=== PATIENT | female | born 1940 | race Caucasian/White ===

== ENCOUNTER → 2016-12-24 | Outpatient (CLI) | payer MEDICARE ==
--- NOTE | 2016-12-24 14:30 | XR ---
EXAMINATION TYPE: XR chest 2V DATE OF EXAM: 12/24/2016 11:56 AM HISTORY: Cough. REFERENCE: Previous study dated 04/03/2016. FINDINGS: The lungs are overinflated. Heart size is normal. The lungs are clear. Pleural spaces are c lear. IMPRESSION: COPD.
== END | disposition home or self-care (01) ==
LOC: RADXRMAIN 11:28
PROVIDERS: ATTEND Internal Medicine
DX: J44.9 Chronic obstructive pulmonary disease, unspecified (principal); R05 Cough
CPT/HCPCS: 71020

== ENCOUNTER 2017-09-26 20:11 | Inpatient (IN) | payer MEDICARE, OTHER ==
[2017-09-26] MEDS ORDERED: SODIUM CHLORIDE 0.9% 500 ML IV STA (20:48)
[2017-09-26 20:53] LABS: Glucose,Whole Blood 123 mg/dL (75-99)
--- NOTE | 2017-09-26 20:57 | ED ---
General Adult HPI - General Chief complaint: Weakness Stated complaint: Left side numbness Arm /RX Stroke Time Seen by Provider: 09/26/17 20:40 Source: patient, family, RN notes reviewed Mode of arrival: wheelchair Limitations: no limitations - History of Present Illness Initial comments: This is a 76-year-old female presents emergency Department complaining of left- sided weakness and numbness. Patient states started last evening right after dinner. Patient states she's having difficulty walking because of left side keeps giving out. Patient's daughter agrees to this started last night after dinner. Patient states she has had strokes in the past. Patient states her leg and arm both appear to be weak and she doesn't appear to have a normal coordination that she doesn't a daily basis. Patient denies any recent fever chills or cough per patient denies chest pain difficulty breathing shortness of breath. Patient denies any headache. Patient denies any visual disturbance or speech disturbance. - Related Data Home Medications Medication Instructions Recorded Confirmed Enalapril [Vasotec] 10 mg PO DAILY 05/09/14 09/25/16 Clopidogrel Bisulfate [Plavix] 75 mg PO DAILY 01/29/15 09/25/16 HYDROcodone/APAP 10-325MG [[place] 1 tab PO Q8H PRN 01/29/15 09/25/16 10] Aspirin EC [Ecotrin] 81 mg PO DAILY 04/03/16 09/25/16 Levothyroxine Sodium [Synthroid] 25 mcg PO DAILY 04/03/16 09/25/16 Baclofen [Lioresal] 10 mg PO Q8H PRN 09/25/16 09/25/16 Hydrochlorothiazide [Hydrodiuril] 12.5 mg PO DAILY 09/25/16 09/25/16 Sodium Chloride [[place]] 1 spray EA NOSTRIL DAILY PRN 09/25/16 09/25/16 Allergies Allergy/AdvReac Type Severity Reaction Status Date / Time cimetidine [From Tagamet] Allergy Rash/Hives Verified 09/26/17 20:42 cimetidine HCl [From Tagamet] Allergy Rash/Hives Verified 09/26/17 20:42 prednisone Allergy Swelling Verified 09/26/17 20:42 Review of Systems ROS Statement: Those systems with pertinent positive or pertinent negative responses have been documented in the HPI. ROS Other: All systems not noted in ROS Statement are negative. Past Medical History Past Medical History: COPD, CVA/TIA, Hypertension, Thyroid Disorder Additional Past Medical History / Comment(s): heart murmur, diverticulitis, ARTHRITIS, History of Any Multi-Drug Resistant Organisms: None Reported Additional Past Surgical History / Comment(s): nasal septum Past Anesthesia/Blood Transfusion Reactions: No Reported Reaction Past Psychological History: Depression Smoking Status: Current every day smoker Past Alcohol Use History: None Reported Past Drug Use History: None Reported - Past Family History Mother Family Medical History: No Reported History General Exam - General Exam Comments Initial Comments: GENERAL: Patient is well-developed and well-nourished. Patient is nontoxic and well- hydrated and is in no acute distress. ENT: Neck is soft and supple. No significant lymphadenopathy is noted. Oropharynx is clear. Moist mucous membranes. Neck has full range of motion without eliciting any pain. EYES: The sclera were anicteric and conjunctiva were pink and moist. Extraocular movements were intact and pupils were equal round and reactive to light. Eyelids were unremarkable. PULMONARY: Unlabored respirations. Good breath sounds bilaterally. No audible rales rhonchi or wheezing was noted. CARDIOVASCULAR: There is a regular rate and rhythm without any murmurs gallops or rubs. ABDOMEN: Soft and nontender with normal bowel sounds. No palpable organomegaly was noted. There is no palpable pulsatile mass. SKIN: Skin is clear with no lesions or rashes and otherwise unremarkable. NEUROLOGIC: Patient is alert and oriented x3. Cranial nerves II through XII are grossly intact. Patient has left arm and left leg weakness. Are equal bilaterally however her dorsiflexion and plantar flexion are weak 3 out of 5 compared to 5 out of 5 on the right. She is finger to nose on the left is considerably off MUSCULOSKELETAL: Normal extremities with adequate strength and full range of motion. No lower extremity swelling or edema. No calf tenderness. LYMPHATICS: No significant lymphadenopathy is noted PSYCHIATRIC: Normal psychiatric evaluation. Normal interpersonal interactions appears functionally intact in deals appropriately with others. No signs of depression. No signs of anxiety. Limitations: no limitations Course Vital Signs 09/26/17 09/26/17 09/26/17 20:40 20:55 21:10 Temperature 97.7 F Pulse Rate 80 78 69 Respiratory 16 18 18 Rate Blood Pressure 108/55 105/59 101/60 O2 Sat by Pulse 95 96 97 Oximetry 09/26/17 21:58 Temperature 98.6 F Pulse Rate 71 Respiratory 18 Rate Blood Pressure 102/58 O2 Sat by Pulse 95 Oximetry Medical Decision Making - Medical Decision Making EKG shows sinus rhythm at a rate of 70 bpm GA interval is 134 QRS is 104 QT interval 394 QTC is 449. Patient's EKG shows no ST segment elevation or depression or T-wave abnormalities noted her Computed tomography scan shows no acute abnormality. Chest x-ray shows a right lower lobe pneumonia. I started the patient on Levaquin. - Lab Data Result diagrams: 09/26/17 20:48 09/26/17 20:48 Lab Results 09/26/17 09/26/17 09/26/17 Range/Units 20:41 20:48 20:48 WBC 11.3 H (3.8-10.6) k/uL RBC 4.07 (3.80-5.40) m/uL Hgb 12.8 (11.4-16.0) gm/dL Hct 39.3 (34.0-46.0) % MCV 96.6 (80.0-100.0) fL MCH 31.4 (25.0-35.0) pg MCHC 32.5 (31.0-37.0) g/dL RDW 12.6 (11.5-15.5) % Plt Count 231 (150-450) k/uL Neutrophils % 54 % Lymphocytes % 32 % Monocytes % 11 % Eosinophils % 1 % Basophils % 1 % Neutrophils # 6.1 (1.3-7.7) k/uL Lymphocytes # 3.6 (1.0-4.8) k/uL Monocytes # 1.2 H (0-1.0) k/uL Eosinophils # 0.1 (0-0.7) k/uL Basophils # 0.1 (0-0.2) k/uL PT (9.0-12.0) sec INR (<1.2) APTT (22.0-30.0) sec Sodium (137-145) mmol/L Potassium (3.5-5.1) mmol/L Chloride (98-107) mmol/L Carbon Dioxide (22-30) mmol/L Anion Gap mmol/L BUN (7-17) mg/dL Creatinine (0.52-1.04) mg/dL Est GFR (MDRD) Af Amer (>60 ml/min/1.73 sqM) Est GFR (MDRD) Non-Af (>60 ml/min/1.73 sqM) Glucose (74-99) mg/dL POC Glucose (mg/dL) 123 H (75-99) mg/dL POC Glu [employer] Judge ID Rose Muhammad Calcium (8.4-10.2) mg/dL Total Bilirubin (0.2-1.3) mg/dL AST (14-36) U/L ALT (9-52) U/L Alkaline Phosphatase (38-126) U/L Total Creatine Kinase 44 (30-135) U/L CK-MB (CK-2) 0.5 (0.0-2.4) ng/mL CK-MB (CK-2) Rel Index 1.1 Troponin I 0.038 H* (0.000-0.034) ng/mL Total Protein (6.3-8.2) g/dL Albumin (3.5-5.0) g/dL 09/26/17 09/26/17 Range/Units 20:48 20:48 WBC (3.8-10.6) k/uL RBC (3.80-5.40) m/uL Hgb (11.4-16.0) gm/dL Hct (34.0-46.0) % MCV (80.0-100.0) fL MCH (25.0-35.0) pg MCHC (31.0-37.0) g/dL RDW (11.5-15.5) % Plt Count (150-450) k/uL Neutrophils % % Lymphocytes % % Monocytes % % Eosinophils % % Basophils % % Neutrophils # (1.3-7.7) k/uL Lymphocytes # (1.0-4.8) k/uL Monocytes # (0-1.0) k/uL Eosinophils # (0-0.7) k/uL Basophils # (0-0.2) k/uL PT 11.2 (9.0-12.0) sec INR 1.1 (<1.2) APTT 21.8 L (22.0-30.0) sec Sodium 133 L (137-145) mmol/L Potassium 3.7 (3.5-5.1) mmol/L Chloride 99 (98-107) mmol/L Carbon Dioxide 26 (22-30) mmol/L Anion Gap 8 mmol/L BUN 20 H (7-17) mg/dL Creatinine 0.69 (0.52-1.04) mg/dL Est GFR (MDRD) Af Amer >60 (>60 ml/min/1.73 sqM) Est GFR (MDRD) Non-Af >60 (>60 ml/min/1.73 sqM) Glucose 120 H (74-99) mg/dL POC Glucose (mg/dL) (75-99) mg/dL POC Glu [employer] [facility] Judge ID Calcium 9.4 (8.4-10.2) mg/dL Total Bilirubin 0.6 (0.2-1.3) mg/dL AST 29 (14-36) U/L ALT 31 (9-52) U/L Alkaline Phosphatase 78 (38-126) U/L Total Creatine Kinase (30-135) U/L CK-MB (CK-2) (0.0-2.4) ng/mL CK-MB (CK-2) Rel Index Troponin I (0.000-0.034) ng/mL Total Protein 6.3 (6.3-8.2) g/dL Albumin 3.5 (3.5-5.0) g/dL Disposition Clinical Impression: Cerebrovascular accident Disposition: ADMITTED IP TO THIS [facility] Time of Disposition: 21:49
--- NOTE | 2017-09-26 21:04 | CT ---
EXAMINATION TYPE: CT brain wo con DATE OF EXAM: 09/26/2017 COMPARISON: 09/10/2014 HISTORY: History of stroke, left sided weakness started yesterday. CT DLP: 1009.20 mGycm Automated exposure control for dose reduction was used. FINDINGS: There is cerebral cortical atrophy. There is no mass effect nor midline shift. There is no sign of in tracranial hemorrhage. The calvarium is intact. There is mucosal thickening in the sphenoid sinus. IMPRESSION: CEREBRAL ATROPHY. NO ACUTE INTRACRANIAL ABNORMALITY. THERE IS NEW MILD SPHENOID SINUSITIS.
[2017-09-26 21:15] LABS: Basophils # (A) 0.1 k/uL (0-0.2); Basophils % (A) 1 %; CHCM 33.3; Eosinophils # (A) 0.1 k/uL (0-0.7); Eosinophils % (A) 1 %; HCT 39.3 % (34.0-46.0); HDW 2.18; HGB 12.8 gm/dL (11.4-16.0); Luc # (Auto) 0.16; Luc % (Auto) 1; Lymphocytes # (A) 3.6 k/uL (1.0-4.8); Lymphocytes % (A) 32 %; MCH 31.4 pg (25.0-35.0); MCHC 32.5 g/dL (31.0-37.0); MCV 96.6 fL (80.0-100.0); Mean Platelet Volume 7.8; Monocytes # (A) 1.2 k/uL (0-1.0); Monocytes % (A) 11 %; Neutrophils # (A) 6.1 k/uL (1.3-7.7); Neutrophils % (A) 54 %; RBC 4.07 m/uL (3.80-5.40); RDW 12.6 % (11.5-15.5); WBC 11.3 k/uL (3.8-10.6)
[2017-09-26 21:18] LABS: ALT 31 U/L (9-52); AST 29 U/L (14-36); Alkaline Phosphatase 78 U/L (38-126); Anion Gap 8 mmol/L; Blood Urea Nitrogen 20 mg/dL (7-17); Calcium 9.4 mg/dL (8.4-10.2); Carbon Dioxide 26 mmol/L (22-30); Chloride 99 mmol/L (98-107); Glucose 120 mg/dL (74-99); Non-African American GFR(MDRD) >60 (>60 ml/min/1.73 sqM); Potassium 3.7 mmol/L (3.5-5.1); Sodium 133 mmol/L (137-145); Total Bilirubin 0.6 mg/dL (0.2-1.3); Total Protein 6.3 g/dL (6.3-8.2)
[2017-09-26 21:27] LABS: INR 1.1 (<1.2); Prothrombin Time 11.2 sec (9.0-12.0)
[2017-09-26 21:40] LABS: Creatine Kinase MB 0.5 ng/mL (0.0-2.4); Troponin I 0.038 ng/mL (0.000-0.034)
--- NOTE | 2017-09-26 21:41 | XR ---
EXAMINATION TYPE: XR chest 2V DATE OF EXAM: 09/26/2017 COMPARISON: 12/24/2016 HISTORY: Weakness TECHNIQUE: Frontal and lateral views of the chest are obtained. FINDINGS: There is some patchy pneumonic consolidation at the right lung base. There is no gross hea rt failure. There is probably small right pleural effusion. Heart size is normal. There is pulmonary hyperinflation. Thoracic aorta is atheromatous. IMPRESSION: COPD. There is new right lower lobe pneumonia compared to old exam. No heart failure
[2017-09-26 21:44] LABS: Partial Thromboplastin Time 21.8 sec (22.0-30.0)
[2017-09-26] MEDS ORDERED: ASPIRIN 325 MG TAB PO STA (21:49)
[2017-09-26] MEDS ORDERED: HYDROmorphone 1 MG/ML 1 ML SYRINGE IVP STA (22:08)
[2017-09-26] MEDS ORDERED: ONDANSETRON 4 MG/2 ML VIAL IVP STA (22:08)
[2017-09-26] MEDS ORDERED: LEVOFLOXACIN 750MG-D5W PMX 750 MG in DEXTROSE/WATER 1 150ML.BAG IVPB STA (22:40)
[2017-09-26] MEDS ORDERED: LEVOFLOXACIN 750MG-D5W PMX 750 MG in DEXTROSE/WATER 1 150ML.BAG IVPB SCH (22:45)
[2017-09-27] MEDS: SODIUM CHLORIDE 0.9% 1,000 ML IV SCH ×2 (00:20→20:49)
[2017-09-27] MEDS: BACLOFEN 10 MG TAB PO SCH ×4 (00:52→20:49)
[2017-09-27 03:54] LABS: Cholesterol 88 mg/dL (<200); HDL Cholesterol 27 mg/dL (40-60)
[2017-09-27] MEDS: LEVOTHYROXINE 25 MCG TAB PO SCH (06:49)
[2017-09-27] MEDS: CLOPIDOGREL 75 MG TAB PO SCH (07:52)
[2017-09-27] MEDS: SODIUM CHLORIDE 0.65% NASAL SPRAY 44 ML BTL NASAL SCH ×2 (07:52→20:49)
[2017-09-27] MEDS ORDERED: LISINOPRIL 20 MG TAB PO SCH (09:00)
[2017-09-27] MEDS ORDERED: HYDROCHLOROTHIAZIDE 12.5 MG CAP PO SCH (09:00)
--- NOTE | 2017-09-27 09:25 | US ---
EXAMINATION TYPE: US carotid duplex BILAT DATE OF EXAM: 09/27/2017 COMPARISON: Previous study dated 09/11/2014. CLINICAL HISTORY: Stenosis. Stroke 2005. Left side weakness. EXAM MEASUREMENTS: RIGHT: Peak Systolic Velocity (PSV) cm/sec ----- Right CCA: 68.8 ----- Right ICA: 108.1 ----- Right ECA: 86.6 ICA/CCA ratio: 1.6 RIGHT: End Diastole cm/sec ----- Right CCA: 17.4 ----- Right ICA: 30.5 ----- Right ECA: 16.7 LEFT: Peak Systolic Velocity (PSV) cm/sec ----- Left CCA: 74.6 ----- Left ICA: 87.9 ----- Left ECA: 98.4 ICA/CCA ratio: 1.2 LEFT: End Diastole cm/sec ----- Left CCA: 19.7 ----- Left ICA: 37.4 ----- Left ECA: 9.5 VERTEBRALS (direction of flow): Right Vertebral: Antegrade Left Vertebral: Antegrade Rhythm: Arrhythmia No significant stenosis, elevated velocities or wall thickening. Plaque seen in bilateral bulbs. IMPRESSION: I DO NOT SEE EVIDENCE OF A HEMODYNAMICALLY SIGNIFICANT STENOSIS IN EITHER CAROTID SYSTEM. Criteria for Assigning % of Stenosis / Diameter reduction (Estimation based on the indirect measurements of the internal carotid artery velocities (ICA PSV). 1. Normal (no stenosis)=ICA PSV < 125 cm/s: ratio < 2.0: ICA EDV<40 cm/s. 2. Less than 50% stenosis=ICA PSV < 125 cm/s: ratio < 2.0: ICA EDV<40 cm/s. 3. 50 to 69% stenosis=ICA PSV of 125 to 230 cm/s: ration 2.0 ? 4.0: ICA EDV 40-100 cm/s. 4. Greater than 70% stenosis to near occlusion= ICA PSV > 230 cm/s: ratio > 4.0: ICA EDV > 100 cm/s. 5. Near occlusion= ICA PSV velocities may be low or undetectable: variable ratio and ICA EDV. 6. Total occlusion=unable to detect flow.
--- NOTE | 2017-09-27 11:06 | P.HPIM ---
History of Present Illness H&P Date: 09/27/17 Chief Complaint: Left sided weakness Patient is a 76-year-old female well known to my practice who presented to [facility] emergency room due to left sided weakness that involved the left upper extremity and the left lower extremity. Patient states that on Thursday afternoon around 5:30 PM, she started having some numbness feeling in her left hand, she tried to get up and walk to the bathroom but she felt weak on the left side and she was veering to the left, there was no speech or vision impairment there was no facial drooping . She stayed at home she waited about 24 hours her symptoms did not improve and she decided to come to emergency room. Patient was evaluated in the emergency room, she had a computed tomography scan of the brain that showed evidence of atrophy and evidence of sinusitis otherwise no significant abnormality. Chest x-ray was done in the emergency room and revealed evidence of COPD and a new right lower lobe pneumonia, EKG was done in the emergency room and revealed normal sinus rhythm, patient has been maintained on telemetry which reveals normal sinus rhythm no evidence of atrial fibrillation so far. Patient has multiple risk factors including smoking patient states that she started smoking at age 15 she still smokes 15 cigarettes per day she was counseled in length on multiple occasions in regard to smoking cessation, patient also has a known history of hypertension, hyperlipidemia, hypothyroidism Past Medical History Past Medical History: COPD, CVA/TIA, Hypertension, Thyroid Disorder Additional Past Medical History / Comment(s): heart murmur, diverticulitis, ARTHRITIS, History of Any Multi-Drug Resistant Organisms: None Reported Past Surgical History: Appendectomy Additional Past Surgical History / Comment(s): nasal septum Past Anesthesia/Blood Transfusion Reactions: No Reported Reaction Past Psychological History: Depression Smoking Status: Current every day smoker Past Alcohol Use History: None Reported Past Drug Use History: None Reported - Past Family History Mother Family Medical History: No Reported History Medications and Allergies Home Medications Medication Instructions Recorded Confirmed Type Enalapril [Vasotec] 10 mg PO DAILY 05/09/14 09/26/17 History Clopidogrel Bisulfate [Plavix] 75 mg PO DAILY 01/29/15 09/26/17 History HYDROcodone/APAP 10-325MG [[place] 1 tab PO Q8H PRN 01/29/15 09/26/17 History 10] Aspirin EC [Ecotrin] 81 mg PO DAILY 04/03/16 09/26/17 History Levothyroxine Sodium [Synthroid] 50 mcg PO DAILY 04/03/16 09/26/17 History Baclofen [Lioresal] 20 mg PO Q8H 09/25/16 09/26/17 History Hydrochlorothiazide [Hydrodiuril] 12.5 mg PO DAILY 09/25/16 09/26/17 History Sodium Chloride [[place]] 1 spray EA NOSTRIL BID 09/25/16 09/26/17 History Allergies Allergy/AdvReac Type Severity Reaction Status Date / Time cimetidine [From Tagamet] Allergy Rash/Hives Verified 09/26/17 20:42 cimetidine HCl [From Tagamet] Allergy Rash/Hives Verified 09/26/17 20:42 prednisone Allergy Swelling Verified 09/26/17 20:42 Physical Exam Vitals: Vital Signs Temp Pulse Pulse Resp BP BP Pulse Ox 09/27/17 07:49 98.3 F 92 18 106/61 90 L 09/27/17 04:00 127 H 20 09/27/17 03:49 97.6 F 127 H 20 90/57 91 L 09/27/17 01:49 EST 79 17 98 09/27/17 00:00 77 18 09/26/17 23:49 79 17 105/58 96 09/26/17 22:49 97.6 F 81 18 107/57 95 09/26/17 21:58 98.6 F 71 18 102/58 95 09/26/17 21:10 69 18 101/60 97 09/26/17 20:55 78 18 105/59 96 09/26/17 20:40 97.7 F 80 16 108/55 95 Intake and Output 09/26/17 09/27/17 09/27/17 23:59 06:59 14:59 Intake Total 118 Balance 118 Intake: Oral 118 Other: Voiding Method Toilet # Voids Weight In general patient is alert and oriented 3 in no apparent distress HEENT head normocephalic and atraumatic no mouth or throat lesions Neck is supple no JVD no goiter no lymphadenopathy no carotid bruit Chest exam reveals a few scattered rhonchi no wheezing Cardiac exam reveals regular heart sounds S1 and S2 no gallops no murmurs nor rubs Abdomen is soft nontender no organomegaly with normal bowel sounds Neurological examination: Mental status patient is alert and oriented 3 speech is fluent he denies any vision abnormality Cranial nerve II-12 are intact There is motor abnormality involving the left upper extremity with hand hand shoes sewer there is also bicep and tricep weakness, there is significant weakness involving the left lower extremity, overall left upper and lower extremity weakness is about 3 out of 5 as compared to 5 out of 5 on the right. There is no sensory deficit at this time reflexes are 2+ symmetrical and plantar are downward on the right and upward on the left. Results CBC & Chem 7: 09/26/17 20:48 09/26/17 20:48 Labs: Abnormal Lab Results - Last 24 Hours (Table) 09/26/17 09/26/17 09/26/17 Range/Units 20:41 20:48 20:48 WBC 11.3 H (3.8-10.6) k/uL Monocytes # 1.2 H (0-1.0) k/uL APTT (22.0-30.0) sec Sodium (137-145) mmol/L BUN (7-17) mg/dL Glucose (74-99) mg/dL POC Glucose (mg/dL) 123 H (75-99) mg/dL Troponin I 0.038 H* (0.000-0.034) ng/mL HDL Cholesterol (40-60) mg/dL 09/26/17 09/26/17 09/27/17 Range/Units 20:48 20:48 02:57 WBC (3.8-10.6) k/uL Monocytes # (0-1.0) k/uL APTT 21.8 L (22.0-30.0) sec Sodium 133 L (137-145) mmol/L BUN 20 H (7-17) mg/dL Glucose 120 H (74-99) mg/dL POC Glucose (mg/dL) (75-99) mg/dL Troponin I (0.000-0.034) ng/mL HDL Cholesterol 27 L (40-60) mg/dL 09/27/17 Range/Units 02:57 WBC (3.8-10.6) k/uL Monocytes # (0-1.0) k/uL APTT (22.0-30.0) sec Sodium (137-145) mmol/L BUN (7-17) mg/dL Glucose (74-99) mg/dL POC Glucose (mg/dL) (75-99) mg/dL Troponin I 0.035 H* (0.000-0.034) ng/mL HDL Cholesterol (40-60) mg/dL Thrombosis Risk Factor Assmnt - Choose All That Apply Any of the Below Risk Factors Present?: Yes Each Factor Represents 1 point: Abnormal pulmonary function (COPD) Other Risk Factors: Yes Each Risk Factor Represents 3 Points: Age 75 years or older Thrombosis Risk Factor Assessment Total Risk Factor Score: 4 Thrombosis Risk Factor Assessment Level: Moderate Risk Assessment and Plan Plan: #1 stroke with left sided weakness, currently patient is on aspirin 325 mg and Plavix 75 mg daily, will continue, awaiting neurology input. #2 underlying history of hypertension well-controlled on current medications #3 underlying history of hyperlipidemia patient is not on any medication at this time will check fasting lipid profile #4 tobacco abuse patient was counseled in length in regard to smoking cessation counseling more than 10 minutes today. #5 underlying history of hypothyroidism will continue with Synthroid will check TSH #6 episodes of sinus tachycardia, cardiology consultation was requested #7 minimal elevation in troponin levels, cardiology consultation requested, patient denying any chest pain #8 evidence of right lower lobe pneumonia on chest x-ray, and evidence of sphenoid sinusitis on computed tomography scan of the brain, patient was started on IV Levaquin in the emergency room will continue. #9 echocardiogram and carotid Doppler are ordered neurology consultation and cardiology consultation requested #10 for DVT prophylaxis Will start patient on Lovenox 40 mg subcu once daily, for GI prophylaxis Will start Pepcid 20 mg by mouth twice daily
[2017-09-27] MEDS: ENOXAPARIN 40 MG/0.4 ML SYRINGE SQ SCH (13:16)
--- NOTE | 2017-09-27 13:20 | P.CRDCN ---
History of Present Illness Consult date: 09/27/17 Chief complaint: Left sided weakness History of present illness: Patient is a 76-year-old female with a past medical history significant for hypertension, dyslipidemia, and COPD, presented to [facility] emergency room due to left sided weakness that involved the left upper extremity and the left lower extremity. The patient was in her usual state of health until Thursday afternoon when she started having some numbness feeling in her left hand, she tried to get up and walk to the bathroom but she felt weak on the left side and she was veering to the left, there was no speech or vision impairment there was no facial drooping . She stayed at home she waited about 24 hours her symptoms did not improve and she decided to come to emergency room. The patient stated that she had previous history of stroke in the past. She had a computed tomography scan of the brain that showed evidence of atrophy and evidence of sinusitis otherwise no significant abnormality. Chest x-ray was done in the emergency room and revealed evidence of COPD and a new right lower lobe pneumonia, EKG was done in the emergency room and revealed normal sinus rhythm, patient has been maintained on telemetry which reveals normal sinus rhythm no evidence of atrial fibrillation so far. We get involved in the care of the patient because her cardiac enzymes were checked and came in to be slightly abnormal. The patient did not experience any symptoms of chest pain or chest discomfort nor worsening shortness of breath nor dizziness or lightheadedness or syncope. She continues to have the left sided weakness which seems to be slightly better but still there. The EKG did not show any significant or ischemic changes. The patient is not aware of any prior coronary artery disease or coronary artery stenting in the past. Past Medical History Past Medical History: COPD, CVA/TIA, Hypertension, Thyroid Disorder Additional Past Medical History / Comment(s): heart murmur, diverticulitis, ARTHRITIS, History of Any Multi-Drug Resistant Organisms: None Reported Past Surgical History: Appendectomy Additional Past Surgical History / Comment(s): nasal septum Past Anesthesia/Blood Transfusion Reactions: No Reported Reaction Past Psychological History: Depression Smoking Status: Current every day smoker Past Alcohol Use History: None Reported Past Drug Use History: None Reported - Past Family History Mother Family Medical History: No Reported History Medications and Allergies Home Medications Medication Instructions Recorded Confirmed Type Enalapril [Vasotec] 10 mg PO DAILY 05/09/14 09/27/17 History Clopidogrel Bisulfate [Plavix] 75 mg PO DAILY 01/29/15 09/27/17 History HYDROcodone/APAP 10-325MG [[place] 1 tab PO Q8H PRN 01/29/15 09/27/17 History 10] Levothyroxine Sodium [Synthroid] 50 mcg PO DAILY 04/03/16 09/27/17 History Hydrochlorothiazide [Hydrodiuril] 25 mg PO DAILY 09/25/16 09/27/17 History Baclofen 10 mg PO Q8H 09/27/17 09/27/17 History Allergies Allergy/AdvReac Type Severity Reaction Status Date / Time cimetidine [From Tagamet] Allergy Rash/Hives Verified 09/26/17 20:42 cimetidine HCl [From Tagamet] Allergy Rash/Hives Verified 09/26/17 20:42 prednisone Allergy Swelling Verified 09/26/17 20:42 Physical Exam Vitals: Vital Signs Temp Pulse Pulse Resp BP BP Pulse Ox 09/27/17 12:00 96.7 F L 74 18 70/49 92 L 09/27/17 07:49 98.3 F 92 18 106/61 90 L 09/27/17 04:00 127 H 20 09/27/17 03:49 97.6 F 127 H 20 90/57 91 L 09/27/17 01:49 EST 79 17 98 09/27/17 00:00 77 18 09/26/17 23:49 79 17 105/58 96 09/26/17 22:49 97.6 F 81 18 107/57 95 09/26/17 21:58 98.6 F 71 18 102/58 95 09/26/17 21:10 69 18 101/60 97 09/26/17 20:55 78 18 105/59 96 09/26/17 20:40 97.7 F 80 16 108/55 95 Intake and Output 09/26/17 09/27/17 09/27/17 23:59 06:59 14:59 Intake Total 354 Balance 354 Intake: Oral 354 Other: Voiding Method Toilet # Voids 1 Weight - Constitutional General appearance: no acute distress - Respiratory Respiratory: bilateral: CTA - Cardiovascular Rhythm: regular Heart sounds: normal: S1, S2 Abnormal Heart Sounds: systolic murmur Results 09/26/17 20:48 09/26/17 20:48 Cardiac Enzymes 09/26/17 09/26/17 09/27/17 Range/Units 20:48 20:48 02:57 AST 29 (14-36) U/L CK-MB (CK-2) 0.5 (0.0-2.4) ng/mL Troponin I 0.038 H* 0.035 H* (0.000-0.034) ng/mL 09/27/17 Range/Units 08:53 AST (14-36) U/L CK-MB (CK-2) (0.0-2.4) ng/mL Troponin I 0.027 (0.000-0.034) ng/mL Coagulation 09/26/17 Range/Units 20:48 PT 11.2 (9.0-12.0) sec APTT 21.8 L (22.0-30.0) sec Lipids 09/27/17 Range/Units 02:57 Triglycerides 64 (<150) mg/dL Cholesterol 88 (<200) mg/dL HDL Cholesterol 27 L (40-60) mg/dL CBC 09/26/17 Range/Units 20:48 WBC 11.3 H (3.8-10.6) k/uL RBC 4.07 (3.80-5.40) m/uL Hgb 12.8 (11.4-16.0) gm/dL Hct 39.3 (34.0-46.0) % Plt Count 231 (150-450) k/uL Comprehensive Metabolic Panel 09/26/17 Range/Units 20:48 Sodium 133 L (137-145) mmol/L Potassium 3.7 (3.5-5.1) mmol/L Chloride 99 (98-107) mmol/L Carbon Dioxide 26 (22-30) mmol/L BUN 20 H (7-17) mg/dL Creatinine 0.69 (0.52-1.04) mg/dL Glucose 120 H (74-99) mg/dL Calcium 9.4 (8.4-10.2) mg/dL AST 29 (14-36) U/L ALT 31 (9-52) U/L Alkaline Phosphatase 78 (38-126) U/L Total Protein 6.3 (6.3-8.2) g/dL Albumin 3.5 (3.5-5.0) g/dL Current Medications Generic Name Dose Route Start Last Admin Trade Name Freq PRN Reason Stop Dose Admin Hydrocodone Bitart/Acetaminophen 1 each 09/27/17 00:09 [place] 10 PO Q8H PRN Pain Aspirin 325 mg 09/27/17 21:50 Aspirin PO DAILY NERI Baclofen 20 mg 09/27/17 00:15 09/27/17 07:52 Lioresal PO 20 mg Q8H NERI Administration Clopidogrel Bisulfate 75 mg 09/27/17 09:00 09/27/17 07:52 Plavix PO 75 mg DAILY NERI Administration Enoxaparin Sodium 40 mg 09/27/17 11:30 Lovenox SQ DAILY NERI Hydrochlorothiazide 12.5 mg 09/27/17 09:00 09/27/17 07:52 Hydrodiuril PO 12.5 mg DAILY NERI Administration Levofloxacin 750 mg/ IV 150 mls @ 100 mls/hr 09/27/17 21:00 Solution IVPB HS NERI Sodium Chloride 1,000 mls @ 20 mls/hr 09/27/17 00:15 09/27/17 00:20 Saline 0.9% IV 20 mls/hr .Q24H NERI Administration Levothyroxine Sodium 50 mcg 09/27/17 06:30 09/27/17 06:49 Synthroid PO 50 mcg 0630 NERI Administration Lisinopril 20 mg 09/27/17 09:00 09/27/17 07:52 Zestril PO 20 mg DAILY NERI Administration Pantoprazole Sodium 40 mg 09/28/17 07:30 Protonix PO AC-[id number] NERI Sodium Chloride 1 spray 09/27/17 09:00 09/27/17 07:52 [place] NASAL 1 spray BID NERI Administration Intake and Output 09/26/17 09/27/17 09/27/17 23:59 06:59 14:59 Intake Total 354 Balance 354 Intake: Oral 354 Other: Voiding Method Toilet # Voids 1 Weight 09/26/17 20:48 09/26/17 20:48 Assessment and Plan Assessment: This is a pleasant 76-year-old female patient with known hypertension, dyslipidemia, and significant history of smoking as well as COPD presented to the hospital with left sided weakness and she still have mild residual symptoms. No slurred speech. No visual impairment. The cardiac enzymes were checked and came in to be slightly abnormal. The EKG did not show any ischemic changes. The patient did not have any symptoms of chest pain or discomfort. Currently the patient is on dual antiplatelet therapy which we will continue. Agree to obtain an echocardiogram was Doppler. The patient needs to be ruled out for severe underlying CAD with her risk factors but I would suggest that to be done maybe as an outpatient and not in the setting of acute stroke. We will follow-up with the echocardiogram and follow-up with the patient. Thank you for allowing us participate in her care.
--- NOTE | 2017-09-27 16:16 | P.CNNES ---
History of Present Illness Consult date: 09/27/17 Requesting physician: Kyleigh Garcia Reason for Consult: CVA History of Present Illness: Patient is a pleasant 76-year-old female who is being evaluated by the neurology service today on 09/27/2017 per the request of Dr. Garcia for cerebrovascular accident. Patient has a history of cerebrovascular accident back in 2004. Patient reports symptoms resemble the symptoms she had back in 2004. She takes Plavix 75 mg by mouth daily at home. She states that on Thursday afternoon she started having some numbness in her left hand and arm. She states that she was holding onto the wall on the table due to left-sided weakness. She waited until the next day and when symptoms did not improve she decided to be evaluated at [facility] emergency room. She denies any difficulty with speech or vision. She denies any swallowing difficulty. Computed tomography scan of the brain was done which showed no acute intracranial abnormality. Computed tomography scan did show cerebral atrophy. CT also showed mild sphenoid sinusitis. Carotid Doppler was negative for any hemodynamically significant stenosis. Vital signs on admission were temperature 97.7, pulse rate 80, respiratory rate 16, blood pressure 108/55, oxygen saturation 95% on room air. Laboratory workup included WBCs 11.3, RBCs 4.07, hemoglobin 12.8, hematocrit 39.3. Sodium was low at 133, potassium 3.7, chloride 99. BUN was 20 with creatinine of 0.69. Troponin levels were elevated on admission. Cardiology was consulted. Lipid panel was within normal limits except for low HDL of 27. At the time of my evaluation, patient' s resting comfortably in bed and appears to be in no acute distress. Family is at the bedside. Review of Systems REVIEW OF SYSTEMS: Otherwise unremarkable and noncontributory. Past Medical History Past Medical History: COPD, CVA/TIA, Hypertension, Thyroid Disorder Additional Past Medical History / Comment(s): heart murmur, diverticulitis, ARTHRITIS, History of Any Multi-Drug Resistant Organisms: None Reported Past Surgical History: Appendectomy Additional Past Surgical History / Comment(s): nasal septum Past Anesthesia/Blood Transfusion Reactions: No Reported Reaction Past Psychological History: Depression Smoking Status: Current every day smoker Past Alcohol Use History: None Reported Past Drug Use History: None Reported - Past Family History Mother Family Medical History: No Reported History Medications and Allergies Home Medications Medication Instructions Recorded Confirmed Type Enalapril [Vasotec] 10 mg PO DAILY 05/09/14 09/27/17 History Clopidogrel Bisulfate [Plavix] 75 mg PO DAILY 01/29/15 09/27/17 History HYDROcodone/APAP 10-325MG [[place] 1 tab PO Q8H PRN 01/29/15 09/27/17 History 10] Levothyroxine Sodium [Synthroid] 50 mcg PO DAILY 04/03/16 09/27/17 History Hydrochlorothiazide [Hydrodiuril] 25 mg PO DAILY 09/25/16 09/27/17 History Baclofen 10 mg PO Q8H 09/27/17 09/27/17 History Allergies Allergy/AdvReac Type Severity Reaction Status Date / Time cimetidine [From Tagamet] Allergy Rash/Hives Verified 09/26/17 20:42 cimetidine HCl [From Tagamet] Allergy Rash/Hives Verified 09/26/17 20:42 prednisone Allergy Swelling Verified 09/26/17 20:42 Physical Examination - Vital Signs Vital Signs: Vital Signs Temp Pulse Pulse Resp BP BP Pulse Ox 09/27/17 12:00 96.7 F L 74 18 70/49 92 L 09/27/17 07:49 98.3 F 92 18 106/61 90 L 09/27/17 04:00 127 H 20 09/27/17 03:49 97.6 F 127 H 20 90/57 91 L 09/27/17 01:49 EST 79 17 98 09/27/17 00:00 77 18 09/26/17 23:49 79 17 105/58 96 09/26/17 22:49 97.6 F 81 18 107/57 95 09/26/17 21:58 98.6 F 71 18 102/58 95 09/26/17 21:10 69 18 101/60 97 09/26/17 20:55 78 18 105/59 96 09/26/17 20:40 97.7 F 80 16 108/55 95 Intake and Output 09/27/17 09/27/17 09/27/17 06:59 14:59 22:59 Intake Total 354 Balance 354 Intake: Oral 354 Other: Voiding Method Toilet # Voids 1 Weight PHYSICAL EXAM: GENERAL APPEARANCE: Patient is a well-developed, female who appears to be in no acute distress. HEENT: Normocephalic, atraumatic, no facial asymmetry is seen. Neck is supple with no masses felt. CARDIOVASCULAR: Regular rate and rhythm. ABDOMEN: Nontender, nondistended. EXTREMITIES: Show no edema or clubbing. NEUROLOGICAL EXAM: Patient is awake, alert, and oriented 3. Speech and language are normal. Strength is full in the right upper and lower extremity. Strength is 4/5 in left upper and lower extremity. Sensory exam is normal to light touch in all 4 extremities. Patient does have left pronator drift. No facial asymmetry is seen on cranial nerve testing. No tremors or seizure-like activity is noted. Results - Laboratory Findings CBC and BMP: 09/26/17 20:48 09/26/17 20:48 Abnormal Lab Findings: Abnormal Labs 09/26/17 09/26/17 09/26/17 20:41 20:48 20:48 WBC 11.3 H Monocytes # 1.2 H APTT Sodium BUN Glucose POC Glucose (mg/dL) 123 H Troponin I 0.038 H* HDL Cholesterol 09/26/17 09/26/17 09/27/17 20:48 20:48 02:57 WBC Monocytes # APTT 21.8 L Sodium 133 L BUN 20 H Glucose 120 H POC Glucose (mg/dL) Troponin I HDL Cholesterol 27 L 09/27/17 02:57 WBC Monocytes # APTT Sodium BUN Glucose POC Glucose (mg/dL) Troponin I 0.035 H* HDL Cholesterol Assessment and Plan Plan: Impression: 1. CVA 2. Left hemiparesis 3. Elevated troponin 4. History of CVA. 5. COPD 6. Hypertension 7. Pneumonia 8. History of osteoarthritis, on [place] Recommendation: It does appear the patient suffered a cerebrovascular accident with left hemiparesis. Patient still has left-sided weakness. Patient was febrile and had high white count on admission and was found to have new right lower lobe pneumonia. Patient's currently on antibiotics for this. Cardiology was consulted due to elevated troponins. I will order an MRI of the brain. I will order an EEG and serum homocysteine level. Lipid panel was within normal limits. Continue dual antiplatelet therapy with aspirin and Plavix. I recommend physical therapy to evaluate and treat. Continue neurological checks. I will continue to follow with you. Further recommendations to follow. Thank you for allowing me to participate in the care of your patient. Feel free to call with any questions or concerns. I performed an examination of the patient and discussed the management with the FINAL FINISHER. I have reviewed the FINAL FINISHER notes and agree with the findings and plan of care.
[2017-09-27] MEDS: ASPIRIN 325 MG TAB PO SCH (20:49)
[2017-09-27] MEDS ORDERED: LEVOFLOXACIN 750MG-D5W PMX 750 MG in DEXTROSE/WATER 1 150ML.BAG IVPB SCH (21:00)
[2017-09-28 06:11] LABS: Basophils % (A) 1 %; CH 31.5; CHCM 32.1; Eosinophils # (A) 0.1 k/uL (0-0.7); Eosinophils % (A) 1 %; HCT 35.6 % (34.0-46.0); HDW 2.24; HGB 11.2 gm/dL (11.4-16.0); Luc # (Auto) 0.13; Luc % (Auto) 2; Lymphocytes # (A) 1.4 k/uL (1.0-4.8); Lymphocytes % (A) 19 %; MCH 30.9 pg (25.0-35.0); MCHC 31.4 g/dL (31.0-37.0); MCV 98.4 fL (80.0-100.0); Mean Platelet Volume 7.5; Monocytes # (A) 0.6 k/uL (0-1.0); Monocytes % (A) 8 %; Neutrophils % (A) 69 %; RBC 3.61 m/uL (3.80-5.40); RDW 12.5 % (11.5-15.5); WBC 7.2 k/uL (3.8-10.6)
[2017-09-28 06:26] LABS: ALT 39 U/L (9-52); AST 31 U/L (14-36); Alkaline Phosphatase 78 U/L (38-126); Anion Gap 5 mmol/L; Blood Urea Nitrogen 13 mg/dL (7-17); Calcium 8.7 mg/dL (8.4-10.2); Carbon Dioxide 28 mmol/L (22-30); Chloride 103 mmol/L (98-107); Glucose 89 mg/dL (74-99); Non-African American GFR(MDRD) >60 (>60 ml/min/1.73 sqM); Potassium 3.8 mmol/L (3.5-5.1); Sodium 136 mmol/L (137-145); Total Bilirubin 0.4 mg/dL (0.2-1.3); Total Protein 4.9 g/dL (6.3-8.2)
[2017-09-28] MEDS: PANTOPRAZOLE 40 MG TABLET PO SCH (06:39)
[2017-09-28] MEDS: LEVOTHYROXINE 25 MCG TAB PO SCH (06:39)
[2017-09-28] MEDS: CLOPIDOGREL 75 MG TAB PO SCH (09:08)
[2017-09-28] MEDS: BACLOFEN 10 MG TAB PO SCH (09:08)
[2017-09-28] MEDS: SODIUM CHLORIDE 0.65% NASAL SPRAY 44 ML BTL NASAL SCH ×2 (09:08→21:13)
[2017-09-28] MEDS: ENOXAPARIN 40 MG/0.4 ML SYRINGE SQ SCH (09:08)
[2017-09-28] MEDS: ASPIRIN 325 MG TAB PO SCH (09:08)
[2017-09-28] MEDS ORDERED: SODIUM CHLORIDE 0.9% 500 ML IV ONE (09:34)
--- NOTE | 2017-09-28 09:44 | P.PN ---
Subjective Progress Note Date: 09/28/17 Patient is a 76-year-old female well known to my practice who presented to [facility] emergency room due to left sided weakness that involved the left upper extremity and the left lower extremity. Patient states that on Thursday afternoon around 5:30 PM, she started having some numbness feeling in her left hand, she tried to get up and walk to the bathroom but she felt weak on the left side and she was veering to the left, there was no speech or vision impairment there was no facial drooping . She stayed at home she waited about 24 hours her symptoms did not improve and she decided to come to emergency room. Patient was evaluated in the emergency room, she had a computed tomography scan of the brain that showed evidence of atrophy and evidence of sinusitis otherwise no significant abnormality. Chest x-ray was done in the emergency room and revealed evidence of COPD and a new right lower lobe pneumonia, EKG was done in the emergency room and revealed normal sinus rhythm, patient has been maintained on telemetry which reveals normal sinus rhythm no evidence of atrial fibrillation so far. Patient has multiple risk factors including smoking patient states that she started smoking at age 15 she still smokes 15 cigarettes per day she was counseled in length on multiple occasions in regard to smoking cessation, patient also has a known history of hypertension, hyperlipidemia, hypothyroidism 09/28/2017 patient still having left-sided weakness. She has been having hypotension. She has been receiving baclofen 3 times a day. Usually at home she just takes it as needed at bedtime. Baclofen will be discontinued. This may be contributing to her hypotension. She is scheduled for MRI of the brain and echo today. He is receiving another IV fluid bolus for her hypotension. She did have some dizziness when standing from the wheelchair getting the MRI area denies any chest pain or shortness of breath. Denies any nausea or vomiting. Last bowel movement 2 days ago. Denies any burning with urination Objective - Vital Signs Vital signs: Vital Signs Temp 97.1 F L 09/28/17 08:00 Pulse 71 09/28/17 08:00 Resp 20 09/28/17 08:00 BP 81/45 09/28/17 08:00 Pulse Ox 90 L 09/28/17 08:00 Intake & Output 09/27/17 09/28/17 09/28/17 18:59 06:59 18:59 Intake Total 594 Balance 594 Weight 49.8 kg Intake: Oral 594 Other: Voiding Method Toilet Toilet # Voids 1 1 - Exam Head normocephalic Neck supple Lungs clear to auscultation bilaterally no wheezing or crackles Heart regular rate and rhythm S1-S2, no rub or gallop Abdomen is soft nontender nondistended positive bowel sounds no hepatosplenomegaly Extremities no edema Neuro alert and orientated to 3. Left upper and lower extremity weakness - Labs CBC & Chem 7: 09/28/17 05:24 09/28/17 05:24 Labs: Abnormal Lab Results - Last 24 Hours (Table) 09/28/17 09/28/17 Range/Units 05:24 05:24 RBC 3.61 L (3.80-5.40) m/uL Hgb 11.2 L (11.4-16.0) gm/dL Sodium 136 L (137-145) mmol/L Total Protein 4.9 L (6.3-8.2) g/dL Albumin 2.5 L (3.5-5.0) g/dL Microbiology - Last 24 Hours (Table) 09/26/17 22:51 Blood Culture - Preliminary Blood No Growth after 24 hours Assessment and Plan Assessment: 1. CVA with left-sided weakness: Continue aspirin 325 mg daily and Plavix 75 mg daily. Continue PT OT. Carotid Doppler shows no significant hemodynamic stenosis. Awaiting echo and MRI of the brain 2. Essential hypertension: Patient has been hypotensive. Her lisinopril and hydrochlorothiazide are on hold. She will receive another fluid bolus today. Also will discontinue the scheduled baclofen. This may be contributing to her hypotension. Baclofen will be changed to bedtime as needed 3. Hyperlipidemia: Not on medications. Cholesterol 88 LDL 48 HDL 27 triglyceride 64 4. Hypothyroidism: Check TSH. Continue Synthroid 5. Nicotine dependence: Discussed smoking cessation greater than 10 minutes 6. Minimally elevated troponins: Evaluated by cardiology. They recommend further workup to rule out coronary artery disease and outpatient setting 7. Pneumonia and acute sphenoid sinusitis: Continue Levaquin GI prophylaxis Protonix and DVT prophylaxis Lovenox Anticipate discharge possibly tomorrow I performed an examination of the patient and discussed their management with the physician Director [facility]. I have reviewed the Physician Director [facility]'s notes and agree with the documented findings and plan of care
--- NOTE | 2017-09-28 09:54 | MR ---
EXAMINATION TYPE: MR brain wo con DATE OF EXAM: 09/28/2017 COMPARISON: CT brain from yesterday. MRI brain December 04, 2009. HISTORY: left side weakness began 2 days earlier, CVA TECHNIQUE: Multiplanar, multisequence imaging of the brain and brainstem is performed without IV cont rast. FINDINGS: Diffusion weighted images demonstrate no evidence of a recent infarct or other diffusion abnormality. There is no worrisome extra-axial fluid collection. There is ventricular and sulcal prominence consis tent with diffuse cerebral atrophy. There are scattered foci of T2 hyperintensity seen throughout the superficial, deep, and periventricular white matter. Lesions are nonspecific in appearance and distr ibution but most likely on basis of product of chronic small vessel ischemic change. There is some pr ogression from prior MRI noted. Midline structures demonstrate normal morphology. The craniocervical junction appears within normal limits. Normal vascular flow voids are present. The visualized sinuses are clear and the globes are i ntact. Nasal septum read remains deviated to right of midline. IMPRESSION: 1. No evidence of a recent infarct. 2. There is background of mild to moderate diffuse cerebral atrophy and moderate chronic small vessel ischemic change noted.
--- NOTE | 2017-09-28 11:00 | P.CONS ---
History of Present Illness - Chief Complaint Gait disturbance, left hemiparesthesias - History of Present Illness I had the op to see patient for inpatient rehab consultation with regard to gait disturbance, left hemiparesthesias. She was admitted to [facility] September 26 acute onset left-sided weakness. Given diagnosis stroke and seen by cardiology and neurology, doctors Mick and Dorothy. PT, OT, SKOOG OPERATOR ordered. PT reports minimal assistance for functional mobility. Speech therapy just saw patient for cognitive evaluation. Chest x-ray consistent with COPD only. Carotid Doppler negative. Head CT with atrophy and sphenoid sinusitis. A brain MRI with mild to moderate atrophy and ischemic vessel change. Previous functional history as elicited from patient corroborative by son and [id number]: 76-year-old left-handed white female who is lives in one floor home with her son and same to same [id number]. Retired. Describes independent with driving, standing shower and gait with standard walker. Smokes a pack per day and doesn't drink. Family history cardiac disease in both parents. Review of Systems Review of systems: ENT: Denies sneezes or discharge. Eyes: Denies discharge or photophobia. Cardiac: Denies chest pain or palpitation. Pulmonary: Denies cough or shortness of breath. Breast: Denies discharge or lumps. Gastrointestinal: Denies nausea, emesis, constipation, diarrhea. Genitourinary: Denies discharge or frequency. Musculoskeletal: Denies muscle or bone aches. He has some discomfort in left side and hip initially with the stroke but now resolved. Neurologic: Left-sided weakness and numbness. Endocrine: Denies shakes or sweats. Oncology: Denies cancers. Dermatologic: Denies rash, itching, pruritus. ALLERGY/immunology: Denies sneezes, rashes. Past Medical History Past Medical History: COPD, CVA/TIA, Hypertension, Thyroid Disorder Additional Past Medical History / Comment(s): heart murmur, diverticulitis, ARTHRITIS, History of Any Multi-Drug Resistant Organisms: None Reported Past Surgical History: Appendectomy Additional Past Surgical History / Comment(s): nasal septum Past Anesthesia/Blood Transfusion Reactions: No Reported Reaction Past Psychological History: Depression Smoking Status: Current every day smoker Past Alcohol Use History: None Reported Past Drug Use History: None Reported - Past Family History Mother Family Medical History: No Reported History Medications and Allergies Home Medications Medication Instructions Recorded Confirmed Type Enalapril [Vasotec] 10 mg PO DAILY 05/09/14 09/27/17 History Clopidogrel Bisulfate [Plavix] 75 mg PO DAILY 01/29/15 09/27/17 History HYDROcodone/APAP 10-325MG [Philipp 1 tab PO Q8H PRN 01/29/15 09/27/17 History 10] Levothyroxine Sodium [Synthroid] 50 mcg PO DAILY 04/03/16 09/27/17 History Hydrochlorothiazide [Hydrodiuril] 25 mg PO DAILY 09/25/16 09/27/17 History Baclofen 10 mg PO Q8H 09/27/17 09/27/17 History Allergies Allergy/AdvReac Type Severity Reaction Status Date / Time cimetidine [From Tagamet] Allergy Rash/Hives Verified 09/26/17 20:42 cimetidine HCl [From Tagamet] Allergy Rash/Hives Verified 09/26/17 20:42 prednisone Allergy Swelling Verified 09/26/17 20:42 Physical Exam Vitals: Vital Signs Temp Pulse Resp BP Pulse Ox 09/28/17 08:00 97.1 F L 71 20 81/45 90 L 09/28/17 04:00 97.6 F 60 17 88/53 93 L 09/28/17 00:00 97.4 F L 61 18 80/49 93 L 09/27/17 20:00 97.9 F 73 18 82/49 92 L 09/27/17 16:12 97.4 F L 68 18 87/49 92 L 09/27/17 12:00 96.7 F L 74 18 70/49 92 L Intake and Output 09/27/17 09/28/17 09/28/17 22:59 06:59 14:59 Intake Total 240 240 Balance 240 240 Intake: Oral 240 240 Other: Voiding Method Toilet Toilet # Voids 1 1 1 Weight 49.8 kg Skin: Atrophic, intact. General: Medium build and comfortable appearance. Head: Normocephalic, atraumatic. Eyes: Symmetric. Pupils equal round. Ears: Symmetric. Hearing within normal limits. Mouth: Clear. Neck: Supple. Carotid without bruit. Cardiac: Regular rate and rhythm. Lungs: Clear anteriorly and posteriorly. Abdomen: Soft active nontender. Extremities: Normal tone. Neurological: Mental status: Alert, cooperative, pleasant. Cranial nerves: Symmetric facial tone and trapezius. Motor: Normal strength and isolation right side. Left arm weakness throughout and left leg week distally. Sensation: Intact throughout per patient. DTRs: Symmetric and equal throughout. Mobility: Sits and stands with assistance. Results CBC & Chem 7: 09/28/17 05:24 09/28/17 05:24 Labs: Abnormal Lab Results - Last 24 Hours (Table) 09/28/17 09/28/17 Range/Units 05:24 05:24 RBC 3.61 L (3.80-5.40) m/uL Hgb 11.2 L (11.4-16.0) gm/dL Sodium 136 L (137-145) mmol/L Total Protein 4.9 L (6.3-8.2) g/dL Albumin 2.5 L (3.5-5.0) g/dL Microbiology - Last 24 Hours (Table) 09/26/17 22:51 Blood Culture - Preliminary Blood No Growth after 24 hours Chest x-ray: report reviewed (COPD only.) CT Scan - head: report reviewed (Atrophy and sphenoid sinusitis.) MRI - head: report reviewed (Gldh-cr-exktigyg diffuse atrophy and ischemic vessel change.) Assessment and Plan (1) Cerebrovascular accident Current Visit: Yes Status: Acute Code(s): I63.9 - CEREBRAL INFARCTION, UNSPECIFIED SNOMED Code(s): 383507481 Plan: Impression: 1. Gait disturbance. 2. Stroke with lifting pierces. 3. COPD area 4. Hypertension. 5. Thyroid disorder. Comments and plan: At this time PT, OT, SKOOG OPERATOR ordered. PT noted on chart and SKOOG OPERATOR should be soon. At this time, would anticipate safety concerns with the need and benefit of inpatient rehab.
[2017-09-28 11:40] VITALS: BMI 17.2
--- NOTE | 2017-09-28 12:20 | ECHOF ---
Referral Reason:cva MEASUREMENTS -------- HEIGHT: 170.2 cm WEIGHT: 49.4 kg BP: 81/45 IVSd: 1.0 cm (0.6 - 1.1) LVIDd: 4.4 cm (3.9 - 5.3) LVPWd: 0.7 cm (0.6 - 1.1) IVSs: 1.2 cm LVIDs: 3.6 cm LVPWs: 0.7 cm LAESV Index (A-L): 25.01 ml/m Ao Diam: 3.5 cm (2.0 - 3.7) AV Cusp: 1.6 cm (1.5 - 2.6) LA Diam: 3.0 cm (2.7 - 3.8) MV EXCURSION: 17.896 mm (> 18.000) MV EF SLOPE: 95 mm/s (70 - 150) EPSS: 0.9 cm MV E Jeff: 0.71 m/s MV DecT: 174 ms MV A Jeff: 0.58 m/s MV E/A Ratio: 1.22 RAP: 5.00 mmHg RVSP: 33.46 mmHg FINDINGS -------- Sinus rhythm. This was a technically adequate study. LV size, wall thickness and systolic function are normal, with an EF greater than 55%. The left linda tricular size is normal. The right ventricle is normal in size. Normal LA size by volume 22+/-6 ml/m2. The right atrial size is normal. There is mild aortic valve sclerosis. There is [id number] aortic regurgitation. The mitral valve leaflets are mildly thickened. Mild mitral regurgitation is present. Mild tricuspid regurgitation present. There is no evidence of pulmonary hypertension. The right v entricular systolic pressure, as measured by Doppler, is 33.46mmHg. There is no pulmonic regurgitation present. The aortic root size is normal. There is no pericardial effusion. CONCLUSIONS -------- 1. Sinus rhythm. 2. LV size, wall thickness and systolic function are normal, with an EF greater than 55%. 3. The left ventricular size is normal. 4. Normal LA size by volume 22+/-6 ml/m2. 5. There is mild aortic valve sclerosis. 6. There is [id number]-[id number] aortic regurgitation. 7. The mitral valve leaflets are mildly thickened. 8. Mild mitral regurgitation is present. 9. Mild tricuspid regurgitation present. 10. There is no evidence of pulmonary hypertension. 11. There is no pulmonic regurgitation present. 12. The aortic root size is normal. 13. There is no pericardial effusion. CAFE MANAGER: Pat Padilla RDCS
--- NOTE | 2017-09-28 14:02 | P.PN ---
Subjective Progress Note Date: 09/28/17 Principal diagnosis: CVA This is a 76-year-old female with past medical history significant for hypertension, hyperlipidemia, COPD, CVA, she presented to the emergency room with symptoms of left-sided weakness involving her left upper and left lower extremity. Computed tomography scan of the brain revealed evidence of atrophy and sinusitis with no significant abnormality. A cardiology consultation was initially requested because of abnormal troponins. Patient denied having any chest discomfort or difficulty in breathing. She continues to have some left- sided weakness however improved somewhat according to her. Echocardiogram with Doppler study was performed which revealed an ejection fraction of greater than 55%. Mild to moderate aortic regurg. MRI of the brain was performed which did not reveal any evidence of a recent infarct, there is background of mild to moderate diffuse cerebral atrophy and moderate chronic small vessel ischemic change noted. Blood pressure this morning 97/40 with a heart rate in the 60s. Patient's blood pressure has been running in the 80s to 90s systolic, she did receive a fluid bolus. Lilisnopril has been placed on hold. hemoGlobin 11.2, platelet count 219, sodium 136, potassium 3.8, BUN 13, creatinine 0.6. TSH 0.2 free T4 1.8. Objective - Vital Signs Vital signs: Vital Signs Temp 97.1 F L 09/28/17 12:00 Pulse 62 09/28/17 12:00 Resp 20 09/28/17 12:00 BP 97/46 09/28/17 12:00 Pulse Ox 95 09/28/17 12:00 Intake & Output 09/27/17 09/28/17 09/28/17 18:59 06:59 18:59 Intake Total 594 240 Balance 594 240 Weight 49.8 kg 49.8 kg Intake: Oral 594 240 Other: Voiding Method Toilet Toilet # Voids 1 1 1 - Exam PHYSICAL EXAMINATION: HEENT: Head is atraumatic, normocephalic. Pupils equal, round. Neck is supple. There is no elevated jugular venous pressure. HEART EXAMINATION: Heart S1 and S2 irregularly irregular a systolic murmur is heard. CHEST EXAMINATION: Lungs are clear to auscultation and precussion. No chest wall tenderness is noted on palpation or with deep breathing. ABDOMEN: Soft, nontender. Bowel sounds are heard. No organomegaly noted. EXTREMITIES: 2+ peripheral pulses with no evidence of peripheral edema and no calf tenderness noted. NEUROLOGIC patient is awake, alert and oriented -3. Patient does have left upper and left lower extremity weakness. . - Labs CBC & Chem 7: 09/28/17 05:24 09/28/17 05:24 Labs: Abnormal Lab Results - Last 24 Hours (Table) 09/28/17 09/28/17 09/28/17 Range/Units 05:24 05:24 05:24 RBC 3.61 L (3.80-5.40) m/uL Hgb 11.2 L (11.4-16.0) gm/dL Sodium 136 L (137-145) mmol/L Total Protein 4.9 L (6.3-8.2) g/dL Albumin 2.5 L (3.5-5.0) g/dL TSH 0.273 L (0.465-4.680) mIU/L Microbiology - Last 24 Hours (Table) 09/26/17 22:51 Blood Culture - Preliminary Blood No Growth after 24 hours Assessment and Plan Plan: Assessment and plan #1 CVA with left-sided weakness, Patient currently on dual antiplatelet therapy. #2 hypertension, patient has been hypotensive here, lisinopril and hydrochlorothiazide on hold, patient did get a fluid bolus. #3 hyperlipidemia #4 hypothyroidism #5 nicotine dependence #6 elevated troponins, not consistent with acute coronary syndrome. Cannot rule out underlying CAD. Plan From cardiology's perspective, we will recommend to start the patient on statin. We will continue dual antiplatelet therapy, patient needs to be ruled out for severe underlying coronary artery disease with her risk factors but suggest that this be done as an outpatient after the stroke symptoms have resolved. DNP note has been reviewed, I agree with a documented findings and plan of care. Patient was seen and examined.
[2017-09-28] MEDS: SODIUM CHLORIDE 0.9% 1,000 ML IV SCH (14:16)
--- NOTE | 2017-09-28 15:37 | P.PN ---
Subjective Progress Note Date: 09/28/17 Principal diagnosis: Patient is a pleasant 76-year-old female who is being followed by the neurology service for cerebrovascular accident. Patient does have history of CVA back in 2004 which left her with residual left-sided weakness. Patient underwent extensive physical therapy and left-sided weakness was significantly improved. Patient had episode Thursday of increased weakness and left side similar to this stroke she had back in 2004. Patient came to [facility] emergency room for further evaluation. Patient is on Plavix and aspirin in the home setting. Patient denies any difficulty swallowing, difficulty with speech, or changes in vision. CT scan of the brain was done which showed no acute intracranial abnormality. It did however show cerebral atrophy. Carotid Doppler was negative for any hemodynamically significant stenosis. On admission , troponins were elevated and cardiology was consulted. At the time of my evaluation, patient is resting comfortably in bed and appears to be in no acute distress. Objective - Vital Signs Vital signs: Vital Signs Temp 97.1 F L 09/28/17 12:00 Pulse 62 09/28/17 12:00 Resp 20 09/28/17 12:00 BP 97/46 09/28/17 12:00 Pulse Ox 95 09/28/17 12:00 Intake & Output 09/27/17 09/28/17 09/28/17 18:59 06:59 18:59 Intake Total 594 1260 Output Total 600 Balance 594 660 Weight 49.8 kg 49.8 kg Intake: Intake, IV Titration 660 Amount Sodium Chloride 0.9% 1, 160 000 ml @ 20 mls/hr IV . Q24H [facility] Rx#:[id number] Sodium Chloride 0.9% 500 500 ml @ 999 mls/hr IV .Q31M ONE Rx#:[id number] Oral 594 600 Output: Urine 600 Other: Voiding Method Toilet Toilet # Voids 1 1 1 - Exam PHYSICAL EXAM: GENERAL APPEARANCE: Patient is a well-developed, female who appears to be in no acute distress. HEENT: Normocephalic, atraumatic, no facial asymmetry is seen. Neck is supple with no masses felt. CARDIOVASCULAR: Regular rate and rhythm. ABDOMEN: Nontender, nondistended. EXTREMITIES: Show no edema or clubbing. NEUROLOGICAL EXAM: Patient is awake, alert, and oriented 3.. Speech and language are normal. No facial asymmetry seen on cranial nerve testing. Strength is 5/5 in right upper and lower extremity. Strength is 4/5 in left upper and lower extremity. Sensory exam to light touch is normal in all 4 extremities. No tremors or seizure-like activity is noted. - Labs CBC & Chem 7: 09/28/17 05:24 09/28/17 05:24 Labs: Abnormal Lab Results - Last 24 Hours (Table) 09/28/17 09/28/17 09/28/17 Range/Units 05:24 05:24 05:24 RBC 3.61 L (3.80-5.40) m/uL Hgb 11.2 L (11.4-16.0) gm/dL Sodium 136 L (137-145) mmol/L Total Protein 4.9 L (6.3-8.2) g/dL Albumin 2.5 L (3.5-5.0) g/dL TSH 0.273 L (0.465-4.680) mIU/L Microbiology - Last 24 Hours (Table) 09/26/17 22:51 Blood Culture - Preliminary Blood No Growth after 24 hours Assessment and Plan Plan: Impression: 1. CVA 2. Left hemiparesis 3. Elevated troponin 4. History of CVA. 5. COPD 6. Hypertension 7. Pneumonia 8. History of osteoarthritis, on [place] Recommendation: It does appear the patient suffered a cerebrovascular accident with left hemiparesis. Patient still has left-sided weakness but is slowly improving. Patient is on antibiotics for right lower lobe pneumonia. Patient has history of hypertension however she has been hypotensive during this admission. She was given fluid boluses. Cardiology was consulted due to elevated troponins. Cardiology is recommending further outpatient testing. MRI of the brain showed no evidence of a recent infarct. Her MRI did show moderate diffuse cerebral atrophy and moderate chronic small vessel ischemic changes which have increased since prior MRI. EEG has been done and results are pending. Serum homocystine level was within normal limits. Lipid panel was within normal limits. Continue dual antiplatelet therapy with aspirin and Plavix. Patient was seen by physiatry who recommended patient go to inpatient rehab prior to returning home. Continue neurological checks. Barring any abnormality on the EEG, I will continue to follow with you on an as-needed basis. Patient is stable for transfer to rehab from neurological standpoint. Feel free to call with any questions or concerns. I performed an examination of the patient and discussed the management with the CLAMP FORKLIFT OPERATOR. I have reviewed the CLAMP FORKLIFT OPERATOR notes and agree with the findings and plan of care.
[2017-09-28] MEDS: HYDROcodone/APAP 10-325MG 1 EACH TAB PO PRN (16:44)
--- NOTE | 2017-09-28 18:24 | EEG ---
ELECTROENCEPHALOGRAM REPORT DATE OF SERVICE: 09/28/2017. REASON FOR TESTING: Stroke. DESCRIPTION OF THE PROCEDURE: This EEG was performed using a 21 channel digital electroencephalograph, following international 10-20 system. DESCRIPTION OF THE RECORDING: From the beginning of the tracing, and with patient's eyes closed, the background rhythm was mostly consisting of 8 hertz alpha frequency in the posterior occipital leads. No obvious asymmetry is seen. Frequent muscle and movement artifacts are seen. Photic stimulation was performed with a minimal driving response seen. No pathological waves were elicited. Hyperventilation was not performed. The patient remains awake throughout the tracing. No epileptiform discharges were seen. Her EKG lead showed a regular rate and rhythm. INTERPRETATION: This awake EEG can be considered within normal limits. There was no asymmetry seen. No epileptiform discharges were noticed. The absence of epileptiform discharges does not rule out the diagnosis of epilepsy, therefore clinical correlation is recommended. MMYANETHL / IJN: [id number] /
[2017-09-28] MEDS ORDERED: BACLOFEN 10 MG TAB PO PRN (21:00)
[2017-09-28] MEDS: LEVOFLOXACIN 750 MG TAB PO SCH (21:13)
[2017-09-29 06:37] LABS: Basophils % (A) 1 %; CHCM 31.5; Eosinophils # (A) 0.2 k/uL (0-0.7); Eosinophils % (A) 2 %; HCT 36.7 % (34.0-46.0); HDW 2.26; HGB 11.7 gm/dL (11.4-16.0); Luc # (Auto) 0.12; Luc % (Auto) 2; Lymphocytes # (A) 1.7 k/uL (1.0-4.8); Lymphocytes % (A) 24 %; MCH 31.6 pg (25.0-35.0); MCV 98.8 fL (80.0-100.0); Mean Platelet Volume 8.1; Monocytes # (A) 0.6 k/uL (0-1.0); Monocytes % (A) 9 %; Neutrophils # (A) 4.5 k/uL (1.3-7.7); Neutrophils % (A) 64 %; RBC 3.71 m/uL (3.80-5.40); RDW 14.1 % (11.5-15.5); WBC 7.1 k/uL (3.8-10.6); WBC (Perox) 7.53
[2017-09-29] MEDS: LEVOTHYROXINE 25 MCG TAB PO SCH (06:42)
[2017-09-29] MEDS: PANTOPRAZOLE 40 MG TABLET PO SCH (06:42)
[2017-09-29 06:54] LABS: ALT 34 U/L (9-52); AST 22 U/L (14-36); Alkaline Phosphatase 76 U/L (38-126); Anion Gap 7 mmol/L; Blood Urea Nitrogen 8 mg/dL (7-17); Calcium 8.7 mg/dL (8.4-10.2); Carbon Dioxide 24 mmol/L (22-30); Chloride 109 mmol/L (98-107); Glucose 85 mg/dL (74-99); Non-African American GFR(MDRD) >60 (>60 ml/min/1.73 sqM); Potassium 3.9 mmol/L (3.5-5.1); Sodium 140 mmol/L (137-145); Total Bilirubin 0.3 mg/dL (0.2-1.3); Total Protein 5.1 g/dL (6.3-8.2)
[2017-09-29] MEDS: SODIUM CHLORIDE 0.9% 1,000 ML IV SCH (08:45)
[2017-09-29] MEDS: SODIUM CHLORIDE 0.65% NASAL SPRAY 44 ML BTL NASAL SCH ×2 (08:45→21:04)
[2017-09-29] MEDS: CLOPIDOGREL 75 MG TAB PO SCH (08:46)
[2017-09-29] MEDS: ENOXAPARIN 40 MG/0.4 ML SYRINGE SQ SCH (08:46)
[2017-09-29] MEDS: ASPIRIN 325 MG TAB PO SCH (08:46)
[2017-09-29] MEDS ORDERED: LACTULOSE 20 GM/30 ML CUP PO ONE (09:15)
--- NOTE | 2017-09-29 09:59 | P.PN ---
Subjective Progress Note Date: 09/29/17 Patient is a 76-year-old female well known to my practice who presented to [facility] emergency room due to left sided weakness that involved the left upper extremity and the left lower extremity. Patient states that on Thursday afternoon around 5:30 PM, she started having some numbness feeling in her left hand, she tried to get up and walk to the bathroom but she felt weak on the left side and she was veering to the left, there was no speech or vision impairment there was no facial drooping . She stayed at home she waited about 24 hours her symptoms did not improve and she decided to come to emergency room. Patient was evaluated in the emergency room, she had a computed tomography scan of the brain that showed evidence of atrophy and evidence of sinusitis otherwise no significant abnormality. Chest x-ray was done in the emergency room and revealed evidence of COPD and a new right lower lobe pneumonia, EKG was done in the emergency room and revealed normal sinus rhythm, patient has been maintained on telemetry which reveals normal sinus rhythm no evidence of atrial fibrillation so far. Patient has multiple risk factors including smoking patient states that she started smoking at age 15 she still smokes 15 cigarettes per day she was counseled in length on multiple occasions in regard to smoking cessation, patient also has a known history of hypertension, hyperlipidemia, hypothyroidism 09/28/2017 patient still having left-sided weakness. She has been having hypotension. She has been receiving baclofen 3 times a day. Usually at home she just takes it as needed at bedtime. Baclofen will be discontinued. This may be contributing to her hypotension. She is scheduled for MRI of the brain and echo today. He is receiving another IV fluid bolus for her hypotension. She did have some dizziness when standing from the wheelchair getting the MRI area denies any chest pain or shortness of breath. Denies any nausea or vomiting. Last bowel movement 2 days ago. Denies any burning with urination 09/29/2017 patient continues with the same left-sided weakness. Was seen by Dr. Thakkar and is a candidate for inpatient rehab at [facility]. Awaiting insurance authorization. Patient's blood pressure this morning is showing improvement at 104/65. Blood pressure pills have been on hold she's receiving IV fluids. She received IV fluid bolus yesterday. MRI of the brain showed no recent infarct and EEG was negative. Patient is complaining of some constipation last bowel movement was 3 days ago. Patient does report that her sputum this morning had a few streaks of blood noted in it. We'll continue to monitor Objective - Vital Signs Vital signs: Vital Signs Temp 97 F L 09/29/17 08:40 Pulse 74 09/29/17 08:40 Resp 16 09/29/17 08:40 BP 104/65 09/29/17 08:40 Pulse Ox 94 L 09/29/17 08:58 Intake & Output 09/28/17 09/29/17 09/29/17 18:59 06:59 18:59 Intake Total 1600 240 Output Total 900 550 200 Balance 700 -550 40 Weight 49.8 kg 51 kg Intake: IV 100 Sodium Chloride 0.9% 1, 100 000 ml @ 50 mls/hr IV . Q20H [facility] Rx#:[id number] Intake, IV Titration 660 Amount Sodium Chloride 0.9% 1, 160 000 ml @ 20 mls/hr IV . Q24H [facility] Rx#:[id number] Sodium Chloride 0.9% 500 500 ml @ 999 mls/hr IV .Q31M [facility] Rx#:[id number] Oral 840 240 Output: Urine 900 550 200 Other: Voiding Method Toilet # Voids 1 1 - Exam Head normocephalic Neck supple Lungs clear to auscultation bilaterally no wheezing or crackles Heart regular rate and rhythm S1-S2, no rub or gallop Abdomen is soft nontender nondistended positive bowel sounds no hepatosplenomegaly Extremities no edema Neuro alert and orientated to 3. Left upper and lower extremity weakness - Labs CBC & Chem 7: 09/29/17 05:54 09/29/17 05:54 Labs: Abnormal Lab Results - Last 24 Hours (Table) 09/28/17 09/29/17 09/29/17 Range/Units 05:24 05:54 05:54 RBC 3.71 L (3.80-5.40) m/uL Chloride 109 H (98-107) mmol/L Total Protein 5.1 L (6.3-8.2) g/dL Albumin 2.6 L (3.5-5.0) g/dL TSH 0.273 L (0.465-4.680) mIU/L Microbiology - Last 24 Hours (Table) 09/26/17 22:51 Blood Culture - Preliminary Blood No Growth after 48 hours Assessment and Plan Assessment: 1. CVA with left-sided weakness: Continue aspirin 325 mg daily and Plavix 75 mg daily. Continue PT OT. Carotid Doppler shows no significant hemodynamic stenosis. MRI of the brain shows no recent infarct. There is background mild to moderate diffuse cerebral atrophy and moderate chronic small vessel ischemic change. EEG shows no seizure activity. Echo shows a preserved EF greater than 55%. Mild to moderate aortic regurgitation noted 2. Essential hypertension: Patient has been hypotensive. Her lisinopril and hydrochlorothiazide are on hold. She will receive another fluid bolus today. Also will discontinue the scheduled baclofen. This may be contributing to her hypotension. Baclofen will be changed to bedtime as needed 3. Hyperlipidemia: Not on medications. Cholesterol 88 LDL 48 HDL 27 triglyceride 64 4. Hypothyroidism: Continue Synthroid 5. Nicotine dependence: Discussed smoking cessation greater than 10 minutes 6. Minimally elevated troponins: Evaluated by cardiology. They recommend further workup to rule out coronary artery disease and outpatient setting 7. Pneumonia and acute sphenoid sinusitis: Continue Levaquin GI prophylaxis Protonix and DVT prophylaxis Lovenox Anticipate discharge to inpatient rehab likely tomorrow. Awaiting insurance authorization. I performed an examination of the patient and discussed their management with the physician Personal Lines Agent. I have reviewed the Physician Personal Lines Agent's notes and agree with the documented findings and plan of care
[2017-09-29] MEDS: DOCUSATE 100 MG CAP PO SCH ×2 (10:35→21:04)
--- NOTE | 2017-09-29 11:08 | P.DS ---
Providers Date of admission: 09/26/17 21:49 Expected date of discharge: 09/30/17 Attending physician: Kyleigh Garcia Consults: 09/26/17 21:50 Consult Physician Routine Consulting Provider: Leonardo Torres Consult Reason/Comments: CVA Do you want consulting provider notified?: Yes 09/27/17 10:38 Consult Physician Routine Consulting Provider: Kevyn Leal Consult Reason/Comments: CVA, elevated Troponin, episode of tachycardia Do you want consulting provider notified?: Yes 09/28/17 08:33 Consult Physician Routine Consulting Provider: Paco Keen Consult Reason/Comments: inpatient rehab Do you want consulting provider notified?: Yes Primary care physician: Kyleighmarcos Garcia [facility] Course: Discharge diagnosis 1. CVA with left-sided weakness: Continue aspirin 325 mg daily and Plavix 75 mg daily. Continue PT OT. Carotid Doppler shows no significant hemodynamic stenosis. MRI of the brain shows no recent infarct. There is background mild to moderate diffuse cerebral atrophy and moderate chronic small vessel ischemic change. EEG shows no seizure activity. Echo shows a preserved EF greater than 55%. Mild to moderate aortic regurgitation noted 2. Essential hypertension: Patient has been hypotensive. Her lisinopril and hydrochlorothiazide are on hold. She will receive another fluid bolus today. Also will discontinue the scheduled baclofen. This may be contributing to her hypotension. Baclofen will be changed to bedtime as needed 3. Hyperlipidemia: Not on medications. Cholesterol 88 LDL 48 HDL 27 triglyceride 64 area cardiology did add Lipitor 20 mg daily during this hospitalization due to the CVA 4. Hypothyroidism: Continue Synthroid 5. Nicotine dependence: Discussed smoking cessation greater than 10 minutes 6. Minimally elevated troponins: Evaluated by cardiology. They recommend further workup to rule out coronary artery disease in the outpatient setting 7. Pneumonia and acute sphenoid sinusitis: Continue Levaquin 500 mg by mouth daily for 7 more days Hospital course Patient is a 76-year-old female well known to my practice who presented to [facility] emergency room due to left sided weakness that involved the left upper extremity and the left lower extremity. Patient states that on Thursday afternoon around 5:30 PM, she started having some numbness feeling in her left hand, she tried to get up and walk to the bathroom but she felt weak on the left side and she was veering to the left, there was no speech or vision impairment there was no facial drooping . She stayed at home she waited about 24 hours her symptoms did not improve and she decided to come to emergency room. Patient was evaluated in the emergency room, she had a computed tomography scan of the brain that showed evidence of atrophy and evidence of sinusitis otherwise no significant abnormality. Chest x-ray was done in the emergency room and revealed evidence of COPD and a new right lower lobe pneumonia, EKG was done in the emergency room and revealed normal sinus rhythm, patient has been maintained on telemetry which reveals normal sinus rhythm no evidence of atrial fibrillation so far. Patient has multiple risk factors including smoking patient states that she started smoking at age 15 she still smokes 15 cigarettes per day she was counseled in length on multiple occasions in regard to smoking cessation, patient also has a known history of hypertension, hyperlipidemia, hypothyroidism 09/28/2017 patient still having left-sided weakness. She has been having hypotension. She has been receiving baclofen 3 times a day. Usually at home she just takes it as needed at bedtime. Baclofen will be discontinued. This may be contributing to her hypotension. She is scheduled for MRI of the brain and echo today. He is receiving another IV fluid bolus for her hypotension. She did have some dizziness when standing from the wheelchair getting the MRI area denies any chest pain or shortness of breath. Denies any nausea or vomiting. Last bowel movement 2 days ago. Denies any burning with urination 09/29/2017 patient continues with the same left-sided weakness. Was seen by Dr. Keen and is a candidate for inpatient rehab at [facility]. Awaiting insurance authorization. Patient's blood pressure this morning is showing improvement at 104/65. Blood pressure pills have been on hold she's receiving IV fluids. She received IV fluid bolus yesterday. MRI of the brain showed no recent infarct and EEG was negative. Patient is complaining of some constipation last bowel movement was 3 days ago. Patient does report that her sputum this morning had a few streaks of blood noted in it. We'll continue to monitor Patient will be discharged on 09/30/2017 to [facility] rehab program under Dr. Keen. She still has the left sided weakness. Patient is been cleared by neurology for discharge. She'll continue the full aspirin and Plavix. Lipitor was added during this hospitalization. Patient had been having episodes of hypotension requiring fluid boluses. Blood pressures are currently stable. Her hydrochlorothiazide 12.5mg daily and lisinopril 20mg by daily has been held during this hospitalization. At this time we'll discontinue these medications and will continue to follow her blood pressures at the rehab facility. We'll make further adjustments to blood pressure meds as needed. At this time patient will remain off of all of her blood pressure meds. She will continue Levaquin for 7 more days to finish up her treatment for her pneumonia and sinusitis. Patient needs to follow-up with cardiology outpatient to rule out underlying coronary artery disease did recommend this to be completed outpatient after stroke symptoms have resolved. Patient is medically stable for discharge. Please refer to chart for any further details. I performed an examination of the patient and discussed their management with the physician Operating Room Tech. I have reviewed the Physician Operating Room Tech's notes and agree with the documented findings and plan of care Patient Condition at Discharge: Stable Plan - Discharge Summary Discharge Rx Participant: No New Discharge Prescriptions: New Aspirin 325 mg PO DAILY tab Atorvastatin [Lipitor] 20 mg PO HS #0 tab Baclofen [Lioresal] 20 mg PO DAILY PRN tab PRN Reason: Muscle Spasm Docusate [Colace] 100 mg PO BID cap Levofloxacin [Levaquin] 500 mg PO DAILY #7 tab Continue HYDROcodone/APAP 10-325MG [[place] 10-325] 1 tab PO Q8H PRN PRN Reason: Pain Clopidogrel Bisulfate [Plavix] 75 mg PO DAILY Levothyroxine Sodium [Synthroid] 50 mcg PO DAILY Discontinued Hydrochlorothiazide [Hydrodiuril] 25 mg PO DAILY Baclofen 10 mg PO Q8H Discharge Medication List Clopidogrel Bisulfate [Plavix] 75 mg PO DAILY 01/29/15 [History] HYDROcodone/APAP 10-325MG [[place] 10-325] 1 tab PO Q8H PRN 01/29/15 [History] Levothyroxine Sodium [Synthroid] 50 mcg PO DAILY 04/03/16 [History] Aspirin 325 mg PO DAILY tab 09/29/17 [Rx] Atorvastatin [Lipitor] 20 mg PO HS #0 tab 09/29/17 [Rx] Baclofen [Lioresal] 20 mg PO DAILY PRN tab 09/29/17 [Rx] Docusate [Colace] 100 mg PO BID cap 09/29/17 [Rx] Levofloxacin [Levaquin] 500 mg PO DAILY #7 tab 09/29/17 [Rx] Follow up Appointment(s)/Referral(s): Kyleigh Garcia MD [Primary Care Provider] - 1 Week Kevyn Leal MD [STAFF PHYSICIAN] - 3 Weeks Activity/Diet/Wound Care/Special Instructions: Diet: cardiac, Ensure 1 can TID with meals Activity: as tolerated Okay to discharge to [facility] inpatient rehab program patient to be discharged on 09/30/17 awaiting insurance authorization for inpatient rehab Discharge Disposition: OTHER INSTITUTION NOT DEFINED
--- NOTE | 2017-09-29 12:28 | P.PN ---
Subjective Progress Note Date: 09/29/17 Principal diagnosis: CVA This is a 76-year-old female with past medical history significant for hypertension, hyperlipidemia, COPD, CVA, she presented to the emergency room with symptoms of left-sided weakness involving her left upper and left lower extremity. Computed tomography scan of the brain revealed evidence of atrophy and sinusitis with no significant abnormality. A cardiology consultation was initially requested because of abnormal troponins. Patient denied having any chest discomfort or difficulty in breathing. She continues to have some left- sided weakness however improved somewhat according to her. Echocardiogram with Doppler study was performed which revealed an ejection fraction of greater than 55%. Mild to moderate aortic regurg. MRI of the brain was performed which did not reveal any evidence of a recent infarct, there is background of mild to moderate diffuse cerebral atrophy and moderate chronic small vessel ischemic change noted. Blood pressure this morning 97/40 with a heart rate in the 60s. Patient's blood pressure has been running in the 80s to 90s systolic, she did receive a fluid bolus. Lilisnopril has been placed on hold. hemoGlobin 11.2, platelet count 219, sodium 136, potassium 3.8, BUN 13, creatinine 0.6. TSH 0.2 free T4 1.8. 09/29/2017 Patient seen and examined this morning, blood pressure 110/60, heart rate in the 70s. Seems to have improvement in the strength of her left lower extremity today, continues to be weak in the left upper extremity. Arrangements are being made for transfer to rehab today. We will continue to hold the patient's lisinopril. Follow-up appointment will be made in the office post discharge. Objective - Vital Signs Vital signs: Vital Signs Temp 97 F L 09/29/17 08:40 Pulse 76 09/29/17 11:50 Resp 16 09/29/17 11:50 BP 111/64 09/29/17 11:50 Pulse Ox 94 L 09/29/17 11:50 Intake & Output 09/28/17 09/29/17 09/29/17 18:59 06:59 18:59 Intake Total 1600 240 Output Total 900 550 200 Balance 700 -550 40 Weight 49.8 kg 51 kg Intake: IV 100 Sodium Chloride 0.9% 1, 100 000 ml @ 50 mls/hr IV . Q20H [facility] Rx#:[id number] Intake, IV Titration 660 Amount Sodium Chloride 0.9% 1, 160 000 ml @ 20 mls/hr IV . Q24H [facility] Rx#:[id number] Sodium Chloride 0.9% 500 500 ml @ 999 mls/hr IV .Q31M [facility] Rx#:[id number] Oral 840 240 Output: Urine 900 550 200 Other: Voiding Method Toilet Toilet # Voids 1 1 - Exam PHYSICAL EXAMINATION: HEENT: Head is atraumatic, normocephalic. Pupils equal, round. Neck is supple. There is no elevated jugular venous pressure. HEART EXAMINATION: Heart S1 and S2 irregularly irregular a systolic murmur is heard. CHEST EXAMINATION: Lungs are clear to auscultation and precussion. No chest wall tenderness is noted on palpation or with deep breathing. ABDOMEN: Soft, nontender. Bowel sounds are heard. No organomegaly noted. EXTREMITIES: 2+ peripheral pulses with no evidence of peripheral edema and no calf tenderness noted. NEUROLOGIC patient is awake, alert and oriented -3. Patient does have left upper extremity weakness. Left lower extremity weakness improving . - Labs CBC & Chem 7: 09/29/17 05:54 09/29/17 05:54 Labs: Abnormal Lab Results - Last 24 Hours (Table) 09/29/17 09/29/17 Range/Units 05:54 05:54 RBC 3.71 L (3.80-5.40) m/uL Chloride 109 H (98-107) mmol/L Total Protein 5.1 L (6.3-8.2) g/dL Albumin 2.6 L (3.5-5.0) g/dL Microbiology - Last 24 Hours (Table) 09/26/17 22:51 Blood Culture - Preliminary Blood No Growth after 48 hours Assessment and Plan Plan: Assessment and plan #1 CVA with left-sided weakness, Patient currently on dual antiplatelet therapy. #2 hypertension, patient has been hypotensive here, lisinopril and hydrochlorothiazide on hold, patient did get a fluid bolus. #3 hyperlipidemia #4 hypothyroidism #5 nicotine dependence #6 elevated troponins, not consistent with acute coronary syndrome. Cannot rule out underlying CAD. Plan From cardiology's perspective, continue to hold the patient's lisinopril, continue other medications. Patient will be transferred to rehab today. We will make her a follow-up appointment in the office post discharge. DNP note has been reviewed, I agree with a documented findings and plan of care. Patient was seen and examined.
[2017-09-29] MEDS ORDERED: ATORVASTATIN 20 MG TAB PO SCH (21:00)
[2017-09-29] MEDS: LEVOFLOXACIN 750 MG TAB PO SCH (21:05)
[2017-09-30] MEDS: HYDROcodone/APAP 10-325MG 1 EACH TAB PO PRN ×2 (00:11→09:25)
[2017-09-30] MEDS: SODIUM CHLORIDE 0.9% 1,000 ML IV SCH (06:17)
[2017-09-30] MEDS: LEVOTHYROXINE 25 MCG TAB PO SCH (06:17)
[2017-09-30] MEDS: PANTOPRAZOLE 40 MG TABLET PO SCH (06:17)
[2017-09-30 06:46] LABS: Basophils % (A) 1 %; CH 31.5; Eosinophils # (A) 0.2 k/uL (0-0.7); Eosinophils % (A) 3 %; HCT 35.6 % (34.0-46.0); HDW 2.35; HGB 11.2 gm/dL (11.4-16.0); Luc # (Auto) 0.12; Luc % (Auto) 2; Lymphocytes # (A) 1.7 k/uL (1.0-4.8); Lymphocytes % (A) 30 %; MCH 31.1 pg (25.0-35.0); MCHC 31.3 g/dL (31.0-37.0); MCV 99.2 fL (80.0-100.0); Mean Platelet Volume 7.4; Monocytes # (A) 0.6 k/uL (0-1.0); Monocytes % (A) 11 %; Neutrophils # (A) 3.1 k/uL (1.3-7.7); Neutrophils % (A) 54 %; RBC 3.59 m/uL (3.80-5.40); RDW 12.7 % (11.5-15.5); WBC 5.7 k/uL (3.8-10.6); WBC (Perox) 5.65
[2017-09-30 07:01] LABS: ALT 35 U/L (9-52); AST 18 U/L (14-36); Alkaline Phosphatase 64 U/L (38-126); Anion Gap 5 mmol/L; Blood Urea Nitrogen 8 mg/dL (7-17); Calcium 8.7 mg/dL (8.4-10.2); Carbon Dioxide 25 mmol/L (22-30); Chloride 109 mmol/L (98-107); Glucose 85 mg/dL (74-99); Non-African American GFR(MDRD) >60 (>60 ml/min/1.73 sqM); Sodium 139 mmol/L (137-145); Total Bilirubin 0.4 mg/dL (0.2-1.3); Total Protein 4.9 g/dL (6.3-8.2)
[2017-09-30 09:23] VITALS: BP 116/56; PULSE 65; RESP 16; TEMP 97.2
[2017-09-30] MEDS: DOCUSATE 100 MG CAP PO SCH (09:25)
[2017-09-30] MEDS: ENOXAPARIN 40 MG/0.4 ML SYRINGE SQ SCH (09:25)
[2017-09-30] MEDS: SODIUM CHLORIDE 0.65% NASAL SPRAY 44 ML BTL NASAL SCH (09:25)
[2017-09-30] MEDS: ASPIRIN 325 MG TAB PO SCH (09:26)
[2017-09-30] MEDS: CLOPIDOGREL 75 MG TAB PO SCH (09:26)
--- NOTE | 2017-09-30 10:36 | P.PN ---
Subjective Progress Note Date: 09/30/17 This is a 76-year-old female with past medical history significant for hypertension, hyperlipidemia, COPD, CVA, she presented to the emergency room with symptoms of left-sided weakness involving her left upper and left lower extremity. Computed tomography scan of the brain revealed evidence of atrophy and sinusitis with no significant abnormality. A cardiology consultation was initially requested because of abnormal troponins. Patient denied having any chest discomfort or difficulty in breathing. She continues to have some left- sided weakness however improved somewhat according to her. Echocardiogram with Doppler study was performed which revealed an ejection fraction of greater than 55%. Mild to moderate aortic regurg. MRI of the brain was performed which did not reveal any evidence of a recent infarct, there is background of mild to moderate diffuse cerebral atrophy and moderate chronic small vessel ischemic change noted. Blood pressure this morning 97/40 with a heart rate in the 60s. Patient's blood pressure has been running in the 80s to 90s systolic, she did receive a fluid bolus. Lilisnopril has been placed on hold. hemoGlobin 11.2, platelet count 219, sodium 136, potassium 3.8, BUN 13, creatinine 0.6. TSH 0.2 free T4 1.8. 09/29/2017 Patient seen and examined this morning, blood pressure 110/60, heart rate in the 70s. Seems to have improvement in the strength of her left lower extremity today, continues to be weak in the left upper extremity. Arrangements are being made for transfer to rehab today. We will continue to hold the patient's lisinopril. Follow-up appointment will be made in the office post discharge. On 09/30/2017 patient is alert and oriented she is sitting up in bed she is scheduled to be transferred to [facility] rehab unit today she reports some improvement in her left upper extremity and left lower extremity weakness, she denies any other symptoms at this time there is no headache or dizziness no chest pain no shortness of breath no nausea or vomiting no abdominal pain and no urinary symptoms. Objective - Vital Signs Vital signs: Vital Signs Temp 97.2 F L 09/30/17 09:10 Pulse 65 09/30/17 09:10 Resp 16 09/30/17 09:40 BP 116/56 09/30/17 09:10 Pulse Ox 96 09/30/17 09:10 Intake & Output 09/29/17 09/30/1717 18:59 06:59 18:59 Intake Total 1120 400 360 Output Total 400 500 200 Balance 720 -100 160 Weight 53 kg Intake: IV 400 400 Sodium Chloride 0.9% 1, 400 400 000 ml @ 50 mls/hr IV . Q20H [facility] Rx#:[id number] Oral 720 360 Output: Urine 400 500 200 Other: Voiding Method Toilet Bedside Commode Bedside Commode # Voids 1 2 # Bowel Movements 1 - Exam In general patient is alert and oriented 3 HEENT head normocephalic and atraumatic Neck is supple no JVD no goiter no lymphadenopathy no carotid bruit Chest exam reveals a few scattered rhonchi in both bases no wheezing Cardiac exam reveals regular heart sounds S1 and S2 no gallops no murmurs Abdomen is soft nontender no organomegaly Extremity exam reveals no edema no cyanosis or clubbing - Labs CBC & Chem 7: 09/30/17 06:14 09/30/17 06:14 Labs: Abnormal Lab Results - Last 24 Hours (Table) 09/30/17 09/30/17 Range/Units 06:14 06:14 RBC 3.59 L (3.80-5.40) m/uL Hgb 11.2 L (11.4-16.0) gm/dL Chloride 109 H (98-107) mmol/L Total Protein 4.9 L (6.3-8.2) g/dL Albumin 2.4 L (3.5-5.0) g/dL Microbiology - Last 24 Hours (Table) 09/26/17 22:51 Blood Culture - Preliminary Blood No Growth after 72 hours Assessment and Plan Plan: #1 stroke with left sided weakness, currently patient is on aspirin 325 mg and Plavix 75 mg daily, will continue, awaiting neurology input. #2 underlying history of hypertension well-controlled on current medications #3 underlying history of hyperlipidemia patient is not on any medication at this time will check fasting lipid profile #4 tobacco abuse patient was counseled in length in regard to smoking cessation counseling more than 10 minutes today. #5 underlying history of hypothyroidism will continue with Synthroid will check TSH #6 episodes of sinus tachycardia, cardiology consultation was requested #7 minimal elevation in troponin levels, cardiology consultation requested, patient denying any chest pain #8 evidence of right lower lobe pneumonia on chest x-ray, and evidence of sphenoid sinusitis on computed tomography scan of the brain, patient was started on IV Levaquin in the emergency room will continue. #9 echocardiogram and carotid Doppler are ordered neurology consultation and cardiology consultation requested #10 for DVT prophylaxis Will start patient on Lovenox 40 mg subcu once daily, for GI prophylaxis Will start Pepcid 20 mg by mouth twice daily Plan for transfer to [facility] rehab unit today Will follow there for medical management
== END 2017-09-30 11:20 | DRG 64 ==
LOC: EC 20:11 → 6SEL 21:49
PROVIDERS: ADMIT Internal Medicine; ATTEND Internal Medicine
DX: I63.9 Cerebral infarction, unspecified (principal); J18.9 Pneumonia, unspecified organism; E43 Unspecified severe protein-calorie malnutrition; I95.9 Hypotension, unspecified; I35.1 Nonrheumatic aortic (valve) insufficiency; J44.0 Chronic obstructive pulmonary disease with (acute) lower respiratory infection; I10 Essential (primary) hypertension; E78.5 Hyperlipidemia, unspecified; F17.210 Nicotine dependence, cigarettes, uncomplicated; E03.9 Hypothyroidism, unspecified; R00.0 Tachycardia, unspecified; J32.3 Chronic sphenoidal sinusitis; F32.9 Major depressive disorder, single episode, unspecified; M19.90 Unspecified osteoarthritis, unspecified site; R01.1 Cardiac murmur, unspecified; K59.00 Constipation, unspecified; Z90.89 Acquired absence of other organs; Z71.6 Tobacco abuse counseling; I69.354 Hemiplegia and hemiparesis following cerebral infarction affecting left non-dominant side; Z68.1 Body mass index [BMI] 19.9 or less, adult; Z79.891 Long term (current) use of opiate analgesic; Z88.8 Allergy status to other drugs, medicaments and biological substances; Z79.82 Long term (current) use of aspirin; Z79.02 Long term (current) use of antithrombotics/antiplatelets; Z79.899 Other long term (current) drug therapy; Z82.49 Family history of ischemic heart disease and other diseases of the circulatory system
CPT/HCPCS: 36415; 70450; 70551; 71020; 80053; 80061; 82550; 82553; 83090; 83735; 84439; 84443; 84484; 85025; 85610; 85730; 87040; 93005; 93306; 93880; 95819; 96361; 96374; 96375; 99285

== ENCOUNTER → 2018-05-12 | Outpatient (CLI) | payer MEDICARE, OTHER ==
[2018-05-12 10:04] LABS: Basophils # (A) 0.1 k/uL (0-0.2); Basophils % (A) 1 %; Eosinophils # (A) 0.2 k/uL (0-0.7); Eosinophils % (A) 3 %; HCT 45.7 % (34.0-46.0); HGB 14.7 gm/dL (11.4-16.0); Lymphocytes # (A) 2.2 k/uL (1.0-4.8); Lymphocytes % (A) 41 %; MCH 31.2 pg (25.0-35.0); MCHC 32.3 g/dL (31.0-37.0); MCV 96.6 fL (80.0-100.0); Mean Platelet Volume 7.1; Monocytes # (A) 0.5 k/uL (0-1.0); Monocytes % (A) 10 %; Neutrophils # (A) 2.3 k/uL (1.3-7.7); Neutrophils % (A) 43 %; Platelet Count 234 k/uL (150-450); RBC 4.73 m/uL (3.80-5.40); RDW 13.3 % (11.5-15.5); WBC 5.4 k/uL (3.8-10.6)
[2018-05-12 10:44] LABS: ALT 30 U/L (9-52); AST 29 U/L (14-36); Alkaline Phosphatase 70 U/L (38-126); Anion Gap 10 mmol/L; Blood Urea Nitrogen 27 mg/dL (7-17); Calcium 9.9 mg/dL (8.4-10.2); Carbon Dioxide 28 mmol/L (22-30); Chloride 103 mmol/L (98-107); Cholesterol 114 mg/dL (<200); Glucose 82 mg/dL (74-99); HDL Cholesterol 60 mg/dL (40-60); LDL Cholesterol,Calculated 41 mg/dL (0-99); Potassium 4.6 mmol/L (3.5-5.1); Sodium 141 mmol/L (137-145); Total Bilirubin 0.5 mg/dL (0.2-1.3); Total Protein 6.5 g/dL (6.3-8.2); Triglycerides 63 mg/dL (<150)
== END | disposition home or self-care (01) ==
LOC: LABWHC1 09:18
PROVIDERS: ATTEND Internal Medicine
DX: E03.9 Hypothyroidism, unspecified (principal); I10 Essential (primary) hypertension; J44.9 Chronic obstructive pulmonary disease, unspecified; Z13.88 Encounter for screening for disorder due to exposure to contaminants
CPT/HCPCS: 36415; 80053; 80061; 83655; 84443; 85025

== ENCOUNTER 2018-08-10 10:18 | Emergency (ER) | payer MEDICARE, OTHER ==
[2018-08-10 10:26] VITALS: RESP 18; TEMP 98.1
--- NOTE | 2018-08-10 10:55 | ED ---
Eye Problem HPI - General Chief complaint: Eye Problems Stated complaint: poss bloodclot in eye, Hx cva Time Seen by Provider: 08/10/18 10:37 Source: patient Mode of arrival: ambulatory Limitations: no limitations - History of Present Illness Initial comments: This is a 77-year-old female who has a history of CVA who states she started developing redness in her left eye just prior to admission she denies any trauma headache fevers chills nausea vomiting sweats she states she has slightly blurred vision but she does normally wear glasses and is not wearing them at this time. She does have chronic left-sided weakness but nothing new. No other complaints she is on Plavix. chief complaint: eye redness - Related Data Home Medications Medication Instructions Recorded Confirmed Clopidogrel Bisulfate [Plavix] 75 mg PO DAILY 01/29/15 09/27/17 HYDROcodone/APAP 10-325MG [[place] 1 tab PO Q8H PRN 01/29/15 09/27/17 10-325] Levothyroxine Sodium [Synthroid] 50 mcg PO DAILY 04/03/16 09/27/17 Previous Rx's Medication Instructions Recorded Aspirin 325 mg PO DAILY tab 09/29/17 Atorvastatin [Lipitor] 20 mg PO HS #0 tab 09/29/17 Baclofen [Lioresal] 20 mg PO DAILY PRN tab 09/29/17 Docusate [Colace] 100 mg PO BID cap 09/29/17 Levofloxacin [Levaquin] 500 mg PO DAILY #7 tab 09/29/17 Allergies Allergy/AdvReac Type Severity Reaction Status Date / Time cimetidine [From Tagamet] Allergy Rash/Hives Verified 09/26/17 20:42 cimetidine HCl [From Tagamet] Allergy Rash/Hives Verified 09/26/17 20:42 prednisone Allergy Swelling Verified 09/26/17 20:42 Review of Systems ROS Statement: Those systems with pertinent positive or pertinent negative responses have been documented in the HPI. ROS Other: All systems not noted in ROS Statement are negative. Past Medical History Past Medical History: COPD, CVA/TIA, Hypertension, Thyroid Disorder Additional Past Medical History / Comment(s): heart murmur, diverticulitis, ARTHRITIS, History of Any Multi-Drug Resistant Organisms: None Reported Past Surgical History: Appendectomy Additional Past Surgical History / Comment(s): nasal septum Past Anesthesia/Blood Transfusion Reactions: No Reported Reaction Past Psychological History: Depression Smoking Status: Current every day smoker Past Alcohol Use History: None Reported Past Drug Use History: None Reported - Past Family History Mother Family Medical History: No Reported History General Exam - General Exam Comments Initial Comments: This a well-developed well-nourished awake alert oriented 3 female Limitations: no limitations General appearance: alert, in no apparent distress Head exam: Present: atraumatic, normocephalic, normal inspection Eye exam: Present: PERRL, EOMI, other (Patient does demonstrate some conjunctival hematoma to the left I left lateral inferior quadrant extending into the left upper lateral quadrant no active bleeding seen patient does demonstrate arcus senilis bilaterally also does demonstrate some evidence of early cataract formation.) ENT exam: Present: normal exam, mucous membranes moist Neck exam: Present: normal inspection. Absent: tenderness, meningismus, lymphadenopathy Respiratory exam: Present: normal lung sounds bilaterally. Absent: respiratory distress, wheezes, rales, rhonchi, stridor Cardiovascular Exam: Present: regular rate, normal rhythm, normal heart sounds. Absent: systolic murmur, diastolic murmur, rubs, gallop, clicks Extremities exam: Present: normal inspection, normal capillary refill, other ( Light left-sided weakness compared to the right). Absent: tenderness Back exam: Present: full ROM, other (Some kyphosis noted). Absent: tenderness Neurological exam: Present: alert, oriented X3, CN II-XII intact, motor sensory deficit Psychiatric exam: Present: normal affect, normal mood Skin exam: Present: warm, dry, intact, normal color. Absent: rash Course Vital Signs 08/10/18 10:20 Temperature 98.1 F Pulse Rate 69 Respiratory 18 Rate Blood Pressure 144/72 O2 Sat by Pulse 98 Oximetry Medical Decision Making - Medical Decision Making At this time no further workup is indicated patient does have a subjective conjunctival hematoma the left I I did recommend cool compresses for a day or 2 followed by warm compresses. She is follow-up with her physician and return when necessary Disposition Clinical Impression: Subconjunctival hematoma Disposition: HOME SELF-CARE Condition: Good Instructions: Subungual Hematoma (ED) Is patient prescribed a controlled substance at d/c from ED?: No Referrals: Kyleigh Garcia MD [Primary Care Provider] - 1-2 days
[2018-08-10 11:03] VITALS: BP 138/63; PULSE 65
== END 2018-08-10 11:03 | disposition home or self-care (01) ==
LOC: EC 10:18
DX: H11.31 Conjunctival hemorrhage, right eye (principal); E07.9 Disorder of thyroid, unspecified; M19.90 Unspecified osteoarthritis, unspecified site; F17.200 Nicotine dependence, unspecified, uncomplicated; Z86.73 Personal history of transient ischemic attack (TIA), and cerebral infarction without residual deficits; Z79.02 Long term (current) use of antithrombotics/antiplatelets; Z79.899 Other long term (current) drug therapy; Z88.8 Allergy status to other drugs, medicaments and biological substances
CPT/HCPCS: 99282

== ENCOUNTER → 2018-11-02 | Outpatient (CLI) | payer MEDICARE, OTHER ==
--- NOTE | 2018-11-02 10:46 | MR ---
"MR brain without contrast HISTORY: Trauma 2 planar multisequence imaging through the brain and correlated to prior MR brain 09/28/2017 There is no restricted diffusion. Cortical atrophy is stable. Periventricular white matter demyelinat ion is again noted, scattered and confluent hyperintensities are present on inversion recovery T2-jens ghted sequences as on previous exam. There are normal vascular flow voids present. There is a focus o f mixed high and low signal on inversion recovery T2-weighted sequences. Popcorn-type appearance as o n previous exam along the medial aspect of the inferior right frontal lobe measures approximately 8 m m. Mucosal disease present in the frontal sinus and ethmoid air cells. Orbits show symmetric appearance. Corpus callosum, pituitary, cervical medullary junction, cerebellopontine angles are normal. IMPRESSION: Abnormal signal towards the level of the anterior communicating artery, right anterior ce rebral artery, findings could be indicative of the aneurysm or vascular malformation. Stable in size as compared to prior exam. Stable age-related atrophy and chronic small vessel ischemia. A Yellow level critical message alert has been initiated for Adolfo Hernandez MD via the [employer] | Critical Results System on 11/02/2018 10:43 AM. This message alert has been sent to Macy Hernandez MD via the preferences provided by the clinician for the receipt of Radiology Critical Fin dings. Message ID [id number]."
== END | disposition home or self-care (01) ==
LOC: RADMRIMAIN 09:26
PROVIDERS: ATTEND Psychiatry & Neurology Neurology
DX: G31.1 Senile degeneration of brain, not elsewhere classified (principal); I67.82 Cerebral ischemia
CPT/HCPCS: 70551

== ENCOUNTER → 2018-11-02 | Outpatient (CLI) | payer MEDICARE ==
[2018-11-02 11:22] LABS: Basophils # (A) 0.1 k/uL (0-0.2); Basophils % (A) 1 %; Eosinophils # (A) 0.2 k/uL (0-0.7); Eosinophils % (A) 4 %; HCT 44.5 % (34.0-46.0); HGB 14.2 gm/dL (11.4-16.0); Lymphocytes % (A) 41 %; MCH 30.8 pg (25.0-35.0); MCHC 31.9 g/dL (31.0-37.0); MCV 96.6 fL (80.0-100.0); Mean Platelet Volume 6.9; Monocytes # (A) 0.5 k/uL (0-1.0); Monocytes % (A) 10 %; Neutrophils % (A) 41 %; Platelet Count 226 k/uL (150-450); RDW 14.6 % (11.5-15.5); WBC 4.9 k/uL (3.8-10.6)
[2018-11-02 16:00] LABS: Albumin 4.1 g/dL (3.80-4.90); Albumin/Globulin Ratio 2.28 (1.20-2.10); Anion Gap 2.2 mmol/L (4.00-12.00); Calcium 9.7 mg/dL (8.7-10.3); Carbon Dioxide 31.8 mmol/L (21.6-31.8); Globulin 1.8 g/dL (2.1-3.7); LDL Cholesterol,Calculated 39.6 mg/dL (0.0-131.0); Potassium 3.8 mmol/L (3.5-5.5); Total Bilirubin 0.5 mg/dL (0.2-1.2); Total Protein 5.9 g/dL (6.2-8.2); VLDL Calculation 10.4 mg/dL (5.00-40.00)
[2018-11-02 16:27] LABS: Vitamin D 25 Hydroxy 48.9 ng/mL (30.0-100.0)
== END | disposition home or self-care (01) ==
LOC: LABWHC1 10:21
PROVIDERS: ATTEND Psychiatry & Neurology Neurology
DX: E03.9 Hypothyroidism, unspecified (principal); I10 Essential (primary) hypertension; J44.9 Chronic obstructive pulmonary disease, unspecified; Z79.899 Other long term (current) drug therapy
CPT/HCPCS: 36415; 80053; 80061; 82306; 82607; 84443; 85025

== ENCOUNTER → 2018-11-06 | Outpatient (CLI) | payer MEDICARE, OTHER ==
--- NOTE | 2018-11-06 21:56 | MR ---
EXAMINATION TYPE: MR angio head wo con DATE OF EXAM: 11/06/2018 COMPARISON: MRA brain December 04, 2009. MRI brain November 02, 2018. HISTORY: Abn MRI brain 11-02-18, R/O Rt EMILY aneurysm TECHNIQUE: Time of flight images focusing on the [place] were performed without contrast.. 2-D and 3-D postprocessing imaging is performed on MRI scanner and reviewed. FINDINGS: There is codominant vertebrobasilar system. Vertebral arteries are patent to basilar juncti on. There is no significant focal stenosis or aneurysmal change of the posterior circulation. Hypopla stic bilateral posterior communicating arteries are redemonstrated. Images of the anterior circulation show patent anterior communicating artery. There is no significant focal stenosis or aneurysmal change. Area of round low signal on recent brain MRI is just inferior t o the right anterior cerebral artery seen best near image 101 not as well-seen on 2010 MRI. Clotted a neurysm is in differential. IMPRESSION: No active or patent aneurysm at level of [place].
== END | disposition home or self-care (01) ==
LOC: RADMRIMAIN 09:00
PROVIDERS: ATTEND Psychiatry & Neurology Neurology
DX: I67.1 Cerebral aneurysm, nonruptured (principal)
CPT/HCPCS: 70544

== ENCOUNTER 2019-01-25 12:35 | Inpatient (IN) | payer MEDICARE ==
[2019-01-25] MEDS ORDERED: ALBUTEROL NEBULIZED 2.5 MG/3 ML INHALATION STA (13:02)
[2019-01-25] MEDS ORDERED: SODIUM CHLORIDE 0.9% 500 ML 500 ML IV STA (13:02)
[2019-01-25] MEDS ORDERED: methylPREDNISolone SOD SUCCI 125 MG/2 ML VIAL IV STA (13:02)
--- NOTE | 2019-01-25 13:09 | ED ---
General Adult HPI - General Chief complaint: Shortness of Breath Stated complaint: CHULA Time Seen by Provider: 01/25/19 12:45 Source: patient, EMS, RN notes reviewed Mode of arrival: EMS Limitations: no limitations - History of Present Illness Initial comments: This is a 78-year-old female presents emergency Department complaining of difficulty breathing for the last 2 weeks per patient states it is gotten consistently worse so she decided come emergency department. Patient also complains of coughing a lot and coughing up a lot of green sputum. Patient denies any chest pain or palpitations. Patient states she quit smoking 9 days ago but has been smoking for 50+ years. Patient also states she has a past history of strokes. 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 Patient denies any abdominal pain patient denies nausea vomiting. Patient denies lightheadedness dizziness or near syncopal episode. Patient denies headache patient denies numbness weakness. Patient denies any swelling to the legs or calf tenderness. - Related Data Home Medications Medication Instructions Recorded Confirmed Clopidogrel Bisulfate [Plavix] 75 mg PO DAILY 01/29/15 01/25/19 HYDROcodone/APAP 10-325MG [[place] 1 tab PO Q8H PRN 01/29/15 01/25/19 10-325] Levothyroxine Sodium [Synthroid] 50 mcg PO DAILY 04/03/16 01/25/19 Hydrochlorothiazide 25 mg PO DAILY 08/10/18 01/25/19 Previous Rx's Medication Instructions Recorded Aspirin 325 mg PO DAILY tab 09/29/17 Atorvastatin [Lipitor] 20 mg PO HS #0 tab 09/29/17 Baclofen [Lioresal] 20 mg PO DAILY PRN tab 09/29/17 Allergies Allergy/AdvReac Type Severity Reaction Status Date / Time cimetidine [From Tagamet] Allergy Rash/Hives Verified 01/25/19 14:07 cimetidine HCl [From Tagamet] Allergy Rash/Hives Verified 01/25/19 14:07 prednisone Allergy Swelling Verified 01/25/19 14:07 Review of Systems ROS Statement: Those systems with pertinent positive or pertinent negative responses have been documented in the HPI. ROS Other: All systems not noted in ROS Statement are negative. Past Medical History Past Medical History: COPD, CVA/TIA, Hypertension, Thyroid Disorder Additional Past Medical History / Comment(s): heart murmur, diverticulitis, ARTHRITIS, History of Any Multi-Drug Resistant Organisms: None Reported Past Surgical History: Appendectomy Additional Past Surgical History / Comment(s): nasal septum Past Anesthesia/Blood Transfusion Reactions: No Reported Reaction Past Psychological History: Depression Smoking Status: Current some day smoker Past Alcohol Use History: None Reported Past Drug Use History: None Reported - Past Family History Mother Family Medical History: No Reported History General Exam - General Exam Comments Initial Comments: GENERAL: Patient is well-developed and well-nourished. Patient is nontoxic and well- hydrated and is in mild distress. ENT: Neck is soft and supple. No significant lymphadenopathy is noted. Oropharynx is clear. Moist mucous membranes. Neck has full range of motion without eliciting any pain. EYES: The sclera were anicteric and conjunctiva were pink and moist. Extraocular movements were intact and pupils were equal round and reactive to light. Eyelids were unremarkable. PULMONARY: Patient has diminished breath sounds throughout and has expiratory wheezing. CARDIOVASCULAR: There is a regular rate and rhythm without any murmurs gallops or rubs. ABDOMEN: Soft and nontender with normal bowel sounds. SKIN: Skin is clear with no lesions or rashes and otherwise unremarkable. NEUROLOGIC: Patient is alert and oriented x3. Cranial nerves II through XII are grossly intact. Motor and sensory are also intact. Normal speech, volume and content. Symmetrical smile. MUSCULOSKELETAL: Normal extremities with adequate strength and full range of motion. No lower extremity swelling or edema. No calf tenderness. LYMPHATICS: No significant lymphadenopathy is noted PSYCHIATRIC: Normal psychiatric evaluation. Limitations: no limitations Course Vital Signs 01/25/19 01/25/19 01/25/19 12:46 13:10 13:18 Temperature 98.6 F Pulse Rate 79 80 Respiratory 20 24 Rate Blood Pressure 119/79 O2 Sat by Pulse 97 Oximetry 01/25/19 01/25/19 13:30 14:51 Temperature Pulse Rate 77 81 Respiratory 22 Rate Blood Pressure 123/64 O2 Sat by Pulse 95 Oximetry Medical Decision Making - Medical Decision Making EKG shows normal sinus rhythm at a rate of 86 bpm NE interval is 144 QRS is 78 QT interval 380 QTC is 454 per patient's EKG shows no ST segment elevation or depression. Patient's precordial leads V3 has a lot ofnoise. Chest x-ray shows no acute abnormality. Patient received 3 breathing treatments and steroids in the emergency department though she improved she was not back to her baseline did not occult going home. Patient still had some expiratory wheezing. I spoke with Dr. Garcia he agreed to admit the patient admitted the patient continue the breathing treatments as well as steroids. - Lab Data Result diagrams: 01/25/19 13:35 01/25/19 13:35 Lab Results 01/25/19 01/25/19 01/25/19 Range/Units 13:35 13:35 13:35 WBC 12.1 H (3.8-10.6) k/uL RBC 4.50 (3.80-5.40) m/uL Hgb 14.1 (11.4-16.0) gm/dL Hct 43.5 (34.0-46.0) % MCV 96.5 (80.0-100.0) fL MCH 31.3 (25.0-35.0) pg MCHC 32.4 (31.0-37.0) g/dL RDW 13.3 (11.5-15.5) % Plt Count 407 (150-450) k/uL Neutrophils % 83 % Lymphocytes % 10 % Monocytes % 5 % Eosinophils % 0 % Basophils % 0 % Neutrophils # 10.1 H (1.3-7.7) k/uL Lymphocytes # 1.2 (1.0-4.8) k/uL Monocytes # 0.6 (0-1.0) k/uL Eosinophils # 0.1 (0-0.7) k/uL Basophils # 0.1 (0-0.2) k/uL PT 10.6 (9.0-12.0) sec INR 1.0 (<1.2) APTT 25.2 (22.0-30.0) sec Sodium 136 L (137-145) mmol/L Potassium 3.9 (3.5-5.1) mmol/L Chloride 96 L (98-107) mmol/L Carbon Dioxide 32 H (22-30) mmol/L Anion Gap 8 mmol/L BUN 17 (7-17) mg/dL Creatinine 0.58 (0.52-1.04) mg/dL Est GFR (CKD-EPI)AfAm >90 (>60 ml/min/1.73 sqM) Est GFR (CKD-EPI)NonAf 88 (>60 ml/min/1.73 sqM) Glucose 97 (74-99) mg/dL Plasma Lactic Acid Arron (0.7-2.0) mmol/L Calcium 9.7 (8.4-10.2) mg/dL Total Bilirubin 0.8 (0.2-1.3) mg/dL AST 39 H (14-36) U/L ALT 54 H (9-52) U/L Alkaline Phosphatase 117 (38-126) U/L Troponin I (0.000-0.034) ng/mL Total Protein 6.5 (6.3-8.2) g/dL Albumin 3.5 (3.5-5.0) g/dL 01/25/19 01/25/19 Range/Units 13:35 13:35 WBC (3.8-10.6) k/uL RBC (3.80-5.40) m/uL Hgb (11.4-16.0) gm/dL Hct (34.0-46.0) % MCV (80.0-100.0) fL MCH (25.0-35.0) pg MCHC (31.0-37.0) g/dL RDW (11.5-15.5) % Plt Count (150-450) k/uL Neutrophils % % Lymphocytes % % Monocytes % % Eosinophils % % Basophils % % Neutrophils # (1.3-7.7) k/uL Lymphocytes # (1.0-4.8) k/uL Monocytes # (0-1.0) k/uL Eosinophils # (0-0.7) k/uL Basophils # (0-0.2) k/uL PT (9.0-12.0) sec INR (<1.2) APTT (22.0-30.0) sec Sodium (137-145) mmol/L Potassium (3.5-5.1) mmol/L Chloride (98-107) mmol/L Carbon Dioxide (22-30) mmol/L Anion Gap mmol/L BUN (7-17) mg/dL Creatinine (0.52-1.04) mg/dL Est GFR (CKD-EPI)AfAm (>60 ml/min/1.73 sqM) Est GFR (CKD-EPI)NonAf (>60 ml/min/1.73 sqM) Glucose (74-99) mg/dL Plasma Lactic Acid Arron 1.1 (0.7-2.0) mmol/L Calcium (8.4-10.2) mg/dL Total Bilirubin (0.2-1.3) mg/dL AST (14-36) U/L ALT (9-52) U/L Alkaline Phosphatase (38-126) U/L Troponin I <0.012 (0.000-0.034) ng/mL Total Protein (6.3-8.2) g/dL Albumin (3.5-5.0) g/dL Critical Care Time Critical Care Time: Yes Total Critical Care Time: 35 Disposition Clinical Impression: Acute exacerbation of chronic obstructive airways disease Disposition: ADMITTED IP TO THIS HOSP Referrals: Kyleigh Garcia MD [Primary Care Provider] - 1-2 days Time of Disposition: 15:27
[2019-01-25 13:57] LABS: Basophils # (A) 0.1 k/uL (0-0.2); Basophils % (A) 0 %; Eosinophils # (A) 0.1 k/uL (0-0.7); Eosinophils % (A) 0 %; HCT 43.5 % (34.0-46.0); HGB 14.1 gm/dL (11.4-16.0); Lymphocytes # (A) 1.2 k/uL (1.0-4.8); Lymphocytes % (A) 10 %; MCH 31.3 pg (25.0-35.0); MCHC 32.4 g/dL (31.0-37.0); MCV 96.5 fL (80.0-100.0); Mean Platelet Volume 6.5; Monocytes # (A) 0.6 k/uL (0-1.0); Monocytes % (A) 5 %; Neutrophils # (A) 10.1 k/uL (1.3-7.7); Neutrophils % (A) 83 %; Platelet Count 407 k/uL (150-450); RDW 13.3 % (11.5-15.5); WBC 12.1 k/uL (3.8-10.6)
[2019-01-25 14:04] LABS: Potassium 3.9 mmol/L (3.5-5.1)
[2019-01-25 14:06] LABS: ALT 54 U/L (9-52); AST 39 U/L (14-36); Albumin 3.5 g/dL (3.5-5.0); Alkaline Phosphatase 117 U/L (38-126); Anion Gap 8 mmol/L; Blood Urea Nitrogen 17 mg/dL (7-17); Calcium 9.7 mg/dL (8.4-10.2); Carbon Dioxide 32 mmol/L (22-30); Chloride 96 mmol/L (98-107); Glucose 97 mg/dL (74-99); Partial Thromboplastin Time 25.2 sec (22.0-30.0); Prothrombin Time 10.6 sec (9.0-12.0); Sodium 136 mmol/L (137-145); Total Bilirubin 0.8 mg/dL (0.2-1.3); Total Protein 6.5 g/dL (6.3-8.2)
--- NOTE | 2019-01-25 14:18 | XR ---
EXAMINATION TYPE: XR chest 2V DATE OF EXAM: 01/25/2019 COMPARISON: Chest x-ray September 26, 2017 HISTORY: Shortness of breath and cough. TECHNIQUE: Frontal and lateral views of the chest are obtained. FINDINGS: There is chronic emphysematous change with moderate to severe focal right apical parenchyma l scarring redemonstrated. There is no focal air space opacity, pleural effusion, or pneumothorax se en on current study. The cardiac silhouette size is within normal limits with atherosclerotic change in thoracic aorta. The osseous structures are demineralized. Exaggerated thoracic kyphosis is seen with mild chronic compression fractures midthoracic spine IMPRESSION: Chronic changes without acute pulmonary process.
[2019-01-25] MEDS ORDERED: IPRATROPIUM-ALBUTEROL 3 ML NEB INHALATION STA (15:22)
[2019-01-25] MEDS ORDERED: IPRATROPIUM-ALBUTEROL 3 ML NEB INHALATION PRN (15:28)
[2019-01-25] MEDS ORDERED: BACLOFEN 10 MG TAB PO PRN (15:42)
--- NOTE | 2019-01-25 15:56 | P.HPIM ---
History of Present Illness H&P Date: 01/25/19 This is a 78-year-old female patient presents to the ER with complaints of shortness of breath, poor appetite and weakness. Patient states that symptoms started last Thursday. Patient reports that symptoms have progressively gotten worse. Patient reports she's had productive cough. Patient denies any fevers. Patient denies nausea vomiting or diarrhea. Patient has past medical history of depression, COPD, CVA with left-sided residual weakness, hypertension, hypothyroidism, heart murmur in which she follows with cardiology services every 6 months, diverticulitis and arthritis. Patient also reports she was previously smoked for quitting 9 days ago. Patient states she lives with daughter and son-in-law. Patient denies home oxygen use. Chest x-ray completed in ER showing chronic changes without acute pulmonary process. EKG completed showing normal sinus rhythm, possible left atrial enlargement, left axis deviation. Influenza swab ordered. Sputum culture ordered. Patient started on Solu-Medrol 60 mg IV every 6 hours. Patient also started on azithromycin and Rocephin. Dr. Esquivel has been consulted for pulmonary services. At this time patient denies chest pain. Patient does complain of shortness of breath with activity. Patient is having productive cough. Patient denies nausea vomiting or diarrhea. Patient denies any urinary burning or frequency Review of Systems Please refer to HPI otherwise unremarkable Past Medical History Past Medical History: COPD, CVA/TIA, Hypertension, Thyroid Disorder Additional Past Medical History / Comment(s): heart murmur, diverticulitis, A RTHRITIS, History of Any Multi-Drug Resistant Organisms: None Reported Past Surgical History: Appendectomy Additional Past Surgical History / Comment(s): nasal septum Past Anesthesia/Blood Transfusion Reactions: No Reported Reaction Past Psychological History: Depression Smoking Status: Current some day smoker Past Alcohol Use History: None Reported Past Drug Use History: None Reported - Past Family History Mother Family Medical History: No Reported History Medications and Allergies Home Medications Medication Instructions Recorded Confirmed Type Clopidogrel Bisulfate [Plavix] 75 mg PO DAILY 01/29/15 01/25/19 History HYDROcodone/APAP 10-325MG [[place] 1 tab PO Q8H PRN 01/29/15 01/25/19 History 10-325] Levothyroxine Sodium [Synthroid] 50 mcg PO DAILY 04/03/16 01/25/19 History Aspirin 325 mg PO DAILY tab 09/29/17 01/25/19 Rx Atorvastatin [Lipitor] 20 mg PO HS #0 tab 09/29/17 01/25/19 Rx Baclofen [Lioresal] 20 mg PO DAILY PRN tab 09/29/17 01/25/19 Rx Hydrochlorothiazide 25 mg PO DAILY 08/10/18 01/25/19 History Allergies Allergy/AdvReac Type Severity Reaction Status Date / Time cimetidine [From Tagamet] Allergy Rash/Hives Verified 01/25/19 14:07 cimetidine HCl [From Tagamet] Allergy Rash/Hives Verified 01/25/19 14:07 prednisone Allergy Swelling Verified 01/25/19 14:07 Physical Exam Vitals: Vital Signs Temp Pulse Resp BP Pulse Ox 01/25/19 15:32 90 01/25/19 14:51 81 22 123/64 95 01/25/19 13:30 77 01/25/19 13:18 24 01/25/19 13:10 80 01/25/19 12:46 98.6 F 79 20 119/79 97 Intake and Output 01/25/19 01/25/19 01/25/19 06:59 14:59 22:59 Other: Weight 48.534 kg Head normocephalic Neck supple Lungs left lower lobe Ronchi with expiratory wheezing throughout Heart regular rate and rhythm S1-S2, no rub or gallop Abdomen is soft nontender nondistended positive bowel sounds no hepatosplenomegaly Extremities no edema Neuro alert and orientated to 3 Results CBC & Chem 7: 01/25/19 13:35 01/25/19 13:35 Labs: Abnormal Lab Results - Last 24 Hours (Table) 01/25/19 01/25/19 Range/Units 13:35 13:35 WBC 12.1 H (3.8-10.6) k/uL Neutrophils # 10.1 H (1.3-7.7) k/uL Sodium 136 L (137-145) mmol/L Chloride 96 L (98-107) mmol/L Carbon Dioxide 32 H (22-30) mmol/L AST 39 H (14-36) U/L ALT 54 H (9-52) U/L Assessment and Plan Assessment: 1. COPD exacerbation with possible pneumonia. Initial chest x-ray completed showing chronic changes without acute pulmonary process. Patient started on Solu-Medrol along with IV antibiotics. Dr. Esquivel for pulmonary care. Two-view chest x-ray has been ordered. 2. Nicotine dependence. Patient reports days ago. Patient denies nicotine patch time. Patient educated greater than 3 minutes on smoking patient 3. History of CVA in 2017 with left-sided residual. Patient maintained on Plavix and aspirin 4. Hypothyroidism. Synthroid resumed 5. History of depression 6. History of diverticulitis 7. Essential hypertension. Home meds resumed 8. Arthritis 9. Hyperlipidemia. Statin currently on hold due to elevated liver enzymes will continue to monitor DVT prophylaxis Lovenox. GI prophylaxis Protonix Influenza, sputum and two-view chest x-ray ordered. A.m. labs ordered Pulmonary consult placed Time with Patient: Greater than 30 (Greater than 60% of the total time spent in counseling and coordination of care. I performed an examination of the patient and discussed their management with the Nurse Practitioner. I have reviewed the Nurse Practitioner's notes and agree with the documented findings and plan of care)
[2019-01-25 18:02] VITALS: BMI 16.7
[2019-01-25] MEDS: methylPREDNISolone SOD SUCCI 125 MG/2 ML VIAL IV SCH ×2 (18:39→23:13)
[2019-01-25] MEDS: AZITHROMYCIN 500 MG in SODIUM CHLORIDE 0.9% 250 ML IVPB SCH (18:40)
[2019-01-26] MEDS: methylPREDNISolone SOD SUCCI 125 MG/2 ML VIAL IV SCH ×3 (05:38→17:42)
[2019-01-26] MEDS: LEVOTHYROXINE 50 MCG TAB PO SCH (05:39)
[2019-01-26] MEDS: CLOPIDOGREL 75 MG TAB PO SCH (08:15)
[2019-01-26] MEDS: ENOXAPARIN 40 MG/0.4 ML SYRINGE SQ SCH (08:15)
[2019-01-26] MEDS: PANTOPRAZOLE 40 MG TABLET PO SCH (08:15)
[2019-01-26] MEDS: HYDROCHLOROTHIAZIDE 25 MG TAB PO SCH (08:16)
[2019-01-26] MEDS: ASPIRIN 325 MG TAB PO SCH (08:16)
[2019-01-26] MEDS: AZITHROMYCIN 500 MG in SODIUM CHLORIDE 0.9% 250 ML IVPB SCH (08:16)
[2019-01-26 08:32] LABS: Basophils % (A) 0 %; Eosinophils % (A) 0 %; HCT 39.2 % (34.0-46.0); HGB 12.8 gm/dL (11.4-16.0); Lymphocytes # (A) 0.7 k/uL (1.0-4.8); Lymphocytes % (A) 5 %; MCH 31.3 pg (25.0-35.0); MCHC 32.6 g/dL (31.0-37.0); Mean Platelet Volume 7.2; Monocytes # (A) 0.4 k/uL (0-1.0); Monocytes % (A) 3 %; Neutrophils # (A) 13.4 k/uL (1.3-7.7); Neutrophils % (A) 92 %; Platelet Count 406 k/uL (150-450); RBC 4.08 m/uL (3.80-5.40); RDW 13.3 % (11.5-15.5); WBC 14.5 k/uL (3.8-10.6)
[2019-01-26 08:42] LABS: Sodium 139 mmol/L (137-145)
[2019-01-26 08:44] LABS: ALT 53 U/L (9-52); AST 37 U/L (14-36); Albumin 3.2 g/dL (3.5-5.0); Alkaline Phosphatase 93 U/L (38-126); Anion Gap 7 mmol/L; Blood Urea Nitrogen 22 mg/dL (7-17); Calcium 9.7 mg/dL (8.4-10.2); Carbon Dioxide 33 mmol/L (22-30); Chloride 99 mmol/L (98-107); Glucose 146 mg/dL (74-99); Potassium 4.5 mmol/L (3.5-5.1); Total Bilirubin 0.5 mg/dL (0.2-1.3); Total Protein 5.9 g/dL (6.3-8.2)
--- NOTE | 2019-01-26 09:41 | XR ---
EXAMINATION TYPE: XR chest 2V DATE OF EXAM: 01/26/2019 COMPARISON: 01/25/2019, 04/03/2016 INDICATION: Pain short of breath TECHNIQUE: Frontal and lateral views of the chest are obtained. FINDINGS: The heart size is normal. The pulmonary vasculature is normal. Mild increased lung markings may be extending into the right lower lobe. Correlate for atelectasis or early pneumonia. Some mild right apical infiltrate may be present. Right apex appears chronic from 2 016.. There is hyperinflation flattening the diaphragms compatible COPD. There is increased kyphosis with increased AP diameter. IMPRESSION: 1. Clinical correlation recommended for mild right lower lobe pneumonia.
--- NOTE | 2019-01-26 10:25 | P.PN ---
Subjective Progress Note Date: 01/26/19 This is a 78-year-old female patient presents to the ER with complaints of shortness of breath, poor appetite and weakness. Patient states that symptoms started last Thursday. Patient reports that symptoms have progressively gotten worse. Patient reports she's had productive cough. Patient denies any fevers. Patient denies nausea vomiting or diarrhea. Patient has past medical history of depression, COPD, CVA with left-sided residual weakness, hypertension, hypothyroidism, heart murmur in which she follows with cardiology services every 6 months, diverticulitis and arthritis. Patient also reports she was previously smoked for quitting 9 days ago. Patient states she lives with daughter and so n-in-law. Patient denies home oxygen use. Chest x-ray completed in ER showing chronic changes without acute pulmonary process. EKG completed showing normal sinus rhythm, possible left atrial enlargement, left axis deviation. Influenza swab ordered. Sputum culture ordered. Patient started on Solu-Medrol 60 mg IV every 6 hours. Patient also started on azithromycin and Rocephin. Dr. Esquivel has been consulted for pulmonary services. At this time patient denies chest pain. Patient does complain of shortness of breath with activity. Patient is having productive cough. Patient denies nausea vomiting or diarrhea. Patient denies any urinary burning or frequency on 01/26/2019 patient currently resting comfortably in wheelchair post chest x- ray. Patient states some improvement with shortness of breath. At this time patient remains on IV steroids and IV antibiotics. Pulmonary services have been consulted. Influenza is negative. Patient remained short of breath with exertion. Patient denies chest pain. Patient denies nausea vomiting or diarrhea Objective - Vital Signs Vital signs: Vital Signs Temp 97.6 F 01/26/19 05:13 Pulse 51 L 01/26/19 05:13 Resp 18 01/26/19 05:13 BP 108/55 01/26/19 05:13 Pulse Ox 98 01/26/19 05:13 Intake & Output 01/25/19 01/26/19 01/26/19 18:59 06:59 18:59 Intake Total 500 Balance 500 Weight 48.534 kg 48.534 kg Intake: Amount of Fluid Infused ( 500 ml) Other: Voiding Method Toilet Toilet # Voids 1 - Exam Head normocephalic Neck supple Lungs right lower lobe Ronchi with expiratory wheezing throughout Heart regular rate and rhythm S1-S2, no rub or gallop Abdomen is soft nontender nondistended positive bowel sounds no hepatosplenomegaly Extremities no edema Neuro alert and orientated to 3 - Labs CBC & Chem 7: 01/26/19 07:14 01/26/19 07:14 Labs: Abnormal Lab Results - Last 24 Hours (Table) 01/25/19 01/25/19 01/26/19 Range/Units 13:35 13:35 07:14 WBC 12.1 H 14.5 H (3.8-10.6) k/uL Neutrophils # 10.1 H 13.4 H (1.3-7.7) k/uL Lymphocytes # 0.7 L (1.0-4.8) k/uL Sodium 136 L (137-145) mmol/L Chloride 96 L (98-107) mmol/L Carbon Dioxide 32 H (22-30) mmol/L BUN (7-17) mg/dL Glucose (74-99) mg/dL AST 39 H (14-36) U/L ALT 54 H (9-52) U/L Total Protein (6.3-8.2) g/dL Albumin (3.5-5.0) g/dL 01/26/19 Range/Units 07:14 WBC (3.8-10.6) k/uL Neutrophils # (1.3-7.7) k/uL Lymphocytes # (1.0-4.8) k/uL Sodium (137-145) mmol/L Chloride (98-107) mmol/L Carbon Dioxide 33 H (22-30) mmol/L BUN 22 H (7-17) mg/dL Glucose 146 H (74-99) mg/dL AST 37 H (14-36) U/L ALT 53 H (9-52) U/L Total Protein 5.9 L (6.3-8.2) g/dL Albumin 3.2 L (3.5-5.0) g/dL Assessment and Plan Assessment: 1. COPD exacerbation with right lower lobe pneumonia. Initial chest x-ray completed showing chronic changes without acute pulmonary process. Patient started on Solu-Medrol along with IV antibiotics. Dr. Esquivel for pulmonary care. Two-view chest x-ray completed showing clinical correlation recommended for mild right lower lobe pneumonia. Patient remains on Rocephin and Zithromax. Sputum culture pending 2. Nicotine dependence. Patient reports days ago. Patient denies nicotine patch time. Patient educated greater than 3 minutes on smoking patient 3. History of CVA in 2017 with left-sided residual. Patient maintained on Plavix and aspirin 4. Hypothyroidism. Synthroid resumed 5. History of depression 6. History of diverticulitis 7. Essential hypertension. Home meds resumed 8. Arthritis 9. Hyperlipidemia. Statin currently on hold due to elevated liver enzymes will continue to monitor 10. Elevated liver enzymes. AST 37 ALT 53 statin currently on hold. We'll continue to monitor DVT prophylaxis Lovenox. GI prophylaxis Protonix I performed an examination of the patient and discussed their management with the Nurse Practitioner. I have reviewed the Nurse Practitioner's notes and ag ree with the documented findings and plan of care
--- NOTE | 2019-01-26 12:01 | P.CNPUL ---
History of Present Illness Consult date: 01/26/19 Reason for consult: COPD, pneumonia Chief complaint: Shortness of breath and productive cough History of present illness: This is a 78-year-old female with history of COPD, smoker until 11 days ago, not O2 dependent, not prednisone dependent, patient was brought into the ER with almost a few weeks history of productive cough, shortness of breath, some wheezing. Her symptoms had been getting progressively worse over the last few days. Patient also had some blood-tinged sputum yesterday. In the ER she was noted to have a questionable limited infiltrate in the right lower lobe, patient was admitted, placed on bronchodilators, antibiotics, steroids, and I was asked to see her on consultation. CBC did show evidence of leukocytosis. Electrolytes were noted to be normal. Influenza screen was noted to be negative. Patient was placed on DuoNeb, Rocephin and Zithromax, Solu-Medrol, and Symbicort. During my evaluation, the patient had mostly multiple constitutional symptoms, complaining of weight loss, felt chilly but no documented fever, had mostly symptoms of cough upon presentation, and blood- tinged sputum, no nausea no vomiting no abdominal pain no melena no hematemesis is no dysuria and no frequency no urgency. No headache no blurred vision, Review of Systems 14 point review of systems were obtained, please refer to pertinent positives in HPI, otherwise remaining systems are negative. Past Medical History Past Medical History: COPD, CVA/TIA, Hypertension, Thyroid Disorder Additional Past Medical History / Comment(s): heart murmur, diverticulitis, ARTHRITIS, History of Any Multi-Drug Resistant Organisms: None Reported Past Surgical History: Appendectomy Additional Past Surgical History / Comment(s): nasal septum Past Anesthesia/Blood Transfusion Reactions: No Reported Reaction Past Psychological History: Depression Smoking Status: Current some day smoker Past Alcohol Use History: None Reported Past Drug Use History: None Reported - Past Family History Mother Family Medical History: No Reported History Father Family Medical History: Unable to Obtain Medications and Allergies Home Medications Medication Instructions Recorded Confirmed Type Clopidogrel Bisulfate [Plavix] 75 mg PO DAILY 01/29/15 01/25/19 History HYDROcodone/APAP 10-325MG [[place] 1 tab PO Q8H PRN 01/29/15 01/25/19 History 10-325] Levothyroxine Sodium [Synthroid] 50 mcg PO DAILY 04/03/16 01/25/19 History Hydrochlorothiazide 25 mg PO DAILY 08/10/18 01/25/19 History Allergies Allergy/AdvReac Type Severity Reaction Status Date / Time cimetidine [From Tagamet] Allergy Rash/Hives Verified 01/25/19 14:07 cimetidine HCl [From Tagamet] Allergy Rash/Hives Verified 01/25/19 14:07 prednisone Allergy Swelling Verified 01/25/19 14:07 Physical Exam Vitals: Vital Signs Temp Pulse Pulse Resp BP BP Pulse Ox 01/26/19 05:13 97.6 F 51 L 18 108/55 98 01/25/19 20:48 97.9 F 94 18 114/67 92 L 01/25/19 19:54 92 L 01/25/19 17:37 90 L 01/25/19 16:51 98.5 F 95 20 123/75 85 L 01/25/19 16:27 98.2 F 88 22 122/70 94 L 01/25/19 16:00 95 20 01/25/19 15:55 30 H 116/70 95 01/25/19 15:47 85 01/25/19 15:32 90 01/25/19 14:51 81 22 123/64 95 01/25/19 13:30 77 01/25/19 13:18 24 01/25/19 13:10 80 01/25/19 12:46 98.6 F 79 20 119/79 97 Intake and Output 01/25/19 01/26/19 01/26/19 22:59 06:59 14:59 Intake Total 500 Balance 500 Intake: Amount of Fluid Infused ( 500 ml) Other: Voiding Method Toilet Toilet # Voids 1 1 Weight 48.534 kg Physical Exam: Revealed a 78-year-old female in no form of respiratory distress. Looks chronically ill. Frail looking. Head: Atraumatic, normocephalic. HEENT:[Neck is supple.] [No neck masses.] [No thyromegaly.] [No JVD.] Chest: [Crackles and rhonchi and wheezes noted bilaterally, more so over the right lower lobe area..] Cardiac Exam: [Normal S1 and S2, no S3 gallop, no murmur.] Abdomen: [Soft, nontender, no megaly, no rebound, no guarding, normal bowel sounds.] Extremities: [No clubbing, no edema, no cyanosis.] Neurological Exam: [No focal neurologic deficit.] Alert oriented 3. Psychiatric: Normal mood affect and mental status examination. Lymphatics: No lymphadenopathy. Skin: No rashes. Results - Laboratory Findings CBC and BMP: 01/26/19 07:14 01/26/19 07:14 PT/INR, D-dimer PT 10.6 sec (9.0-12.0) 01/25/19 13:35 INR 1.0 (<1.2) 01/25/19 13:35 Abnormal lab findings: Abnormal Labs 01/25/19 01/25/19 01/26/19 13:35 13:35 07:14 WBC 12.1 H 14.5 H Neutrophils # 10.1 H 13.4 H Lymphocytes # 0.7 L Sodium 136 L Chloride 96 L Carbon Dioxide 32 H BUN Glucose AST 39 H ALT 54 H Total Protein Albumin 01/26/19 07:14 WBC Neutrophils # Lymphocytes # Sodium Chloride Carbon Dioxide 33 H BUN 22 H Glucose 146 H AST 37 H ALT 53 H Total Protein 5.9 L Albumin 3.2 L - Diagnostic Findings Chest x-ray: image reviewed (As noted in HPI) Assessment and Plan Assessment: Impression: 1 acute hypoxic respiratory failure secondary to acute exacerbation of COPD, and strongly suspect community-acquired right lower lobe pneumonia. 2 acute exacerbation of COPD 3 acute right lower lobe pneumonia, community-acquired. 4 nicotine dependence syndrome, counseled regarding smoking cessation. Patient stated that she quit smoking 11 days ago. 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 Patient uses a walker. 6 benign essential hypertension 7 degenerative joint disease 8 history of hyperlipidemia 9 hypothyroidism, on Synthroid replacement therapy. Recommendation: Continue oxygen, bronchodilators, Symbicort was added, GI and DVT prophylaxis, antibiotics in the form of Rocephin and Zithromax, counseled regarding smoking cessation, continue Solu-Medrol, resume home meds, not ready for discharge planning at this point, however will readdress that issue on a daily basis. We'll continue to follow. Time with Patient: Greater than 30
[2019-01-26] MEDS: SYMBICORT 160-4.5 MCG INHALER INHALATION SCH (20:58)
[2019-01-27] MEDS: methylPREDNISolone SOD SUCCI 125 MG/2 ML VIAL IV SCH ×4 (00:13→17:40)
[2019-01-27] MEDS ORDERED: LEVOTHYROXINE 50 MCG TAB ONE (05:40)
[2019-01-27] MEDS ORDERED: methylPREDNISolone SOD SUCCI 125 MG/2 ML VIAL ONE (05:40)
[2019-01-27] MEDS: LEVOTHYROXINE 50 MCG TAB PO SCH (06:21)
[2019-01-27] MEDS: SYMBICORT 160-4.5 MCG INHALER INHALATION SCH ×2 (07:22→19:47)
[2019-01-27] MEDS: ASPIRIN 325 MG TAB PO SCH (08:34)
[2019-01-27] MEDS: PANTOPRAZOLE 40 MG TABLET PO SCH (08:34)
[2019-01-27] MEDS: CLOPIDOGREL 75 MG TAB PO SCH (08:34)
[2019-01-27] MEDS: ENOXAPARIN 40 MG/0.4 ML SYRINGE SQ SCH (08:34)
[2019-01-27] MEDS: AZITHROMYCIN 500 MG TAB PO SCH (08:34)
[2019-01-27] MEDS: HYDROCHLOROTHIAZIDE 25 MG TAB PO SCH (08:35)
[2019-01-27 08:47] LABS: Basophils % (A) 0 %; Eosinophils % (A) 0 %; HCT 40.3 % (34.0-46.0); HGB 13.1 gm/dL (11.4-16.0); Lymphocytes # (A) 0.8 k/uL (1.0-4.8); Lymphocytes % (A) 3 %; MCH 31.3 pg (25.0-35.0); MCHC 32.4 g/dL (31.0-37.0); MCV 96.7 fL (80.0-100.0); Mean Platelet Volume 6.7; Monocytes # (A) 0.5 k/uL (0-1.0); Monocytes % (A) 2 %; Neutrophils # (A) 27.2 k/uL (1.3-7.7); Neutrophils % (A) 96 %; Platelet Count 472 k/uL (150-450); RBC 4.17 m/uL (3.80-5.40); RDW 13.5 % (11.5-15.5); WBC 28.5 k/uL (3.8-10.6)
[2019-01-27 09:12] LABS: ALT 100 U/L (9-52); AST 88 U/L (14-36); Albumin 3.3 g/dL (3.5-5.0); Alkaline Phosphatase 106 U/L (38-126); Anion Gap 8 mmol/L; Blood Urea Nitrogen 27 mg/dL (7-17); Calcium 9.7 mg/dL (8.4-10.2); Carbon Dioxide 31 mmol/L (22-30); Chloride 99 mmol/L (98-107); Glucose 137 mg/dL (74-99); Potassium 4.1 mmol/L (3.5-5.1); Sodium 138 mmol/L (137-145); Total Bilirubin 0.4 mg/dL (0.2-1.3); Total Protein 6.1 g/dL (6.3-8.2)
--- NOTE | 2019-01-27 10:10 | P.PN ---
Subjective Progress Note Date: 01/27/19 This is a 78-year-old female patient presents to the ER with complaints of shortness of breath, poor appetite and weakness. Patient states that symptoms started last Thursday. Patient reports that symptoms have progressively gotten worse. Patient reports she's had productive cough. Patient denies any fevers. Patient denies nausea vomiting or diarrhea. Patient has past medical history of depression, COPD, CVA with left-sided residual weakness, hypertension, hypothyroidism, heart murmur in which she follows with cardiology services every 6 months, diverticulitis and arthritis. Patient also reports she was previously smoked for quitting 9 days ago. Patient states she lives with daughter and so n-in-law. Patient denies home oxygen use. Chest x-ray completed in ER showing chronic changes without acute pulmonary process. EKG completed showing normal sinus rhythm, possible left atrial enlargement, left axis deviation. Influenza swab ordered. Sputum culture ordered. Patient started on Solu-Medrol 60 mg IV every 6 hours. Patient also started on azithromycin and Rocephin. Dr. Esquivel has been consulted for pulmonary services. At this time patient denies chest pain. Patient does complain of shortness of breath with activity. Patient is having productive cough. Patient denies nausea vomiting or diarrhea. Patient denies any urinary burning or frequency on 01/26/2019 patient currently resting comfortably in wheelchair post chest x- ray. Patient states some improvement with shortness of breath. At this time patient remains on IV steroids and IV antibiotics. Pulmonary services have been consulted. Influenza is negative. Patient remained short of breath with exertion. Patient denies chest pain. Patient denies nausea vomiting or diarrhea On 01/27/2019 patient is alert and oriented resting in bed. Patient reports she had sleeping last night due to discomfort. Requesting melatonin be ordered. Patient does report some improvement with shortness of breath. Being followed by pulmonary services. Remains on IV steroids and DuoNeb breathing treatments. Patient's white blood cell increasing to 28.5. Patient is on IV steroids. Will order urinary analysis and blood culture. Patient has been afebrile. Patient's liver enzymes elevated. Staring currently on hold. At this time patient denies chest pain. Patient denies nausea vomiting or diarrhea. Patient denies any urinary burning or frequency. Objective - Vital Signs Vital signs: Vital Signs Temp 97.4 F L 01/27/19 05:02 Pulse 71 01/27/19 05:02 Resp 18 01/27/19 05:02 BP 127/74 01/27/19 05:02 Pulse Ox 93 L 01/27/19 05:02 Intake & Output 01/26/19 01/27/19 01/27/19 18:59 06:59 18:59 Intake Total 250 950 Balance 250 950 Weight 48.534 kg Intake: Intake, IV Titration 250 Amount Azithromycin 500 mg In 250 Sodium Chloride 0.9% 250 ml @ 250 mls/hr IVPB DAILY [facility] Rx#:[id number] Oral 950 Other: Voiding Method Toilet Toilet Toilet # Voids 2 # Bowel Movements 1 - Exam Head normocephalic Neck supple Lungs right lower lobe Ronchi with expiratory wheezing throughout Heart regular rate and rhythm S1-S2, no rub or gallop Abdomen is soft nontender nondistended positive bowel sounds no hepatosple nomegaly Extremities no edema Neuro alert and orientated to 3 - Labs CBC & Chem 7: 01/27/19 07:48 01/27/19 07:48 Labs: Abnormal Lab Results - Last 24 Hours (Table) 01/27/19 01/27/19 Range/Units 07:48 07:48 WBC 28.5 H (3.8-10.6) k/uL Plt Count 472 H (150-450) k/uL Neutrophils # 27.2 H (1.3-7.7) k/uL Lymphocytes # 0.8 L (1.0-4.8) k/uL Carbon Dioxide 31 H (22-30) mmol/L BUN 27 H (7-17) mg/dL Creatinine 0.44 L (0.52-1.04) mg/dL Glucose 137 H (74-99) mg/dL AST 88 H (14-36) U/L ALT 100 H (9-52) U/L Total Protein 6.1 L (6.3-8.2) g/dL Albumin 3.3 L (3.5-5.0) g/dL Microbiology - Last 24 Hours (Table) 01/26/19 05:45 Gram Stain - Preliminary Sputum Assessment and Plan Assessment: 1. Acute hypoxic respiratory failure secondary to acute exacerbation of COPD and possible right lower lobe pneumonia. Initial chest x-ray completed showing chronic changes without acute pulmonary process. Patient started on Solu-Medrol along with IV antibiotics. Dr. Esquivel following for pulmonary care. Two-view chest x-ray completed showing clinical correlation recommended for mild right lower lobe pneumonia. Patient remains on Rocephin and Zithromax. Sputum culture pending 2. Acute exacerbation of COPD. Patient currently on IV Solu-Medrol. Pulmonary service is following 3. Acute right lower lobe pneumonia. Patient currently on Zithromax and Rocephin. followed by pulmonary services 4. Nicotine dependence. Patient reports days ago. Patient denies nicotine patch time. Patient educated greater than 3 minutes on smoking patient 5. History of CVA in 2017 with left-sided residual. Patient maintained on Plavix and aspirin 6. Hypothyroidism. Synthroid resumed 7. History of depression 8. History of diverticulitis 9. Essential hypertension. Home meds resumed 10. Degenerative joint disease 11. Hyperlipidemia. Statin currently on hold due to elevated liver enzymes will continue to monitor 12. Elevated liver enzymes. Lipitor on hold. AST 88 and ALT 100 13. Essential Tremors. Patient reports she follows with Dr. Canales for neurology. Patient's home medication of Primidone ordered. DVT prophylaxis Lovenox. GI prophylaxis Protonix Physical therapy consulted I performed an examination of the patient and discussed their management with the Nurse Practitioner. I have reviewed the Nurse Practitioner's notes and agree with the documented findings and plan of care
[2019-01-27] MEDS: IPRATROPIUM-ALBUTEROL 3 ML NEB INHALATION SCH ×3 (11:10→19:47)
--- NOTE | 2019-01-27 11:10 | P.PN ---
Subjective Progress Note Date: 01/27/19 Principal diagnosis: Acute exacerbation of COPD complicated by acute community-acquired right lower lobe pneumonia This is a 78-year-old female with history of COPD, smoker until 11 days ago, not O2 dependent, not prednisone dependent, patient was brought into the ER with almost a few weeks history of productive cough, shortness of breath, some wheezing. Her symptoms had been getting progressively worse over the last few days. Patient also had some blood-tinged sputum yesterday. In the ER she was noted to have a questionable limited infiltrate in the right lower lobe, patient was admitted, placed on bronchodilators, antibiotics, steroids, and I was asked to see her on consultation. CBC did show evidence of leukocytosis. Electrolytes were noted to be normal. Influenza screen was noted to be negative. Patient was placed on DuoNeb, Rocephin and Zithromax, Solu-Medrol, and Symbicort. During my evaluation, the patient had mostly multiple constitutional symptoms, complaining of weight loss, felt chilly but no documented fever, had mostly symptoms of cough upon presentation, and blood- tinged sputum, no nausea no vomiting no abdominal pain no melena no hematemesis is no dysuria and no frequency no urgency. No headache no blurred vision. The patient is seen today 01/27/2019 in follow-up on the regular medical floor. She is awake and alert in no acute distress. She is still somewhat dyspneic on minimal exertion. Loose nonproductive cough. No chills or night sweats. Sputum cultures pending. Currently afebrile. Maintaining O2 saturations in the low 90s on 4 L/m per nasal cannula. She was 82% on room air post walk. White count 28.5. Hemoglobin 13.1. Creatinine 0.44. She is currently on DuoNeb inhalations, Symbicort, IV Solu-Medrol and antibiotics in the form of ceftriaxone and azithromycin. Objective - Vital Signs Vital signs: Vital Signs Temp 97.4 F L 01/27/19 05:02 Pulse 71 01/27/19 05:02 Resp 18 01/27/19 05:02 BP 127/74 01/27/19 05:02 Pulse Ox 82 L 01/27/19 10:42 Intake & Output 01/26/19 01/27/19 01/27/19 18:59 06:59 18:59 Intake Total 250 950 Balance 250 950 Weight 48.534 kg Intake: Intake, IV Titration 250 Amount Azithromycin 500 mg In 250 Sodium Chloride 0.9% 250 ml @ 250 mls/hr IVPB DAILY [facility] Rx#:[id number] Oral 950 Other: Voiding Method Toilet Toilet Toilet # Voids 2 # Bowel Movements 1 - Exam GENERAL EXAM: 78-year-old female. Frail, cachectic. Alert, comfortable in no apparent distress. On 4 L nasal cannula. HEAD: Normocephalic. EYES: Normal reaction of pupils, equal size. NOSE: Clear with pink turbinates. THROAT: No erythema or exudates. NECK: No masses, no JVD. CHEST: No chest wall deformity. LUNGS: Equal air entry with crackles in the right posterior bases, end expiratory wheeze, diminished CVS: S1 and S2 normal with no audible murmur, regular rhythm. ABDOMEN: No hepatosplenomegaly, normal bowel sounds, no guarding or rigidity. SPINE: No scoliosis or deformity SKIN: No rashes CENTRAL NERVOUS SYSTEM: No focal deficits, tone is normal in all 4 extremities. EXTREMITIES: There is no peripheral edema. No clubbing, no cyanosis. Peripheral pulses are intact. - Labs CBC & Chem 7: 01/27/19 07:48 01/27/19 07:48 Labs: Abnormal Lab Results - Last 24 Hours (Table) 01/27/19 01/27/19 Range/Units 07:48 07:48 WBC 28.5 H (3.8-10.6) k/uL Plt Count 472 H (150-450) k/uL Neutrophils # 27.2 H (1.3-7.7) k/uL Lymphocytes # 0.8 L (1.0-4.8) k/uL Carbon Dioxide 31 H (22-30) mmol/L BUN 27 H (7-17) mg/dL Creatinine 0.44 L (0.52-1.04) mg/dL Glucose 137 H (74-99) mg/dL AST 88 H (14-36) U/L ALT 100 H (9-52) U/L Total Protein 6.1 L (6.3-8.2) g/dL Albumin 3.3 L (3.5-5.0) g/dL Microbiology - Last 24 Hours (Table) 01/26/19 05:45 Gram Stain - Preliminary Sputum Assessment and Plan Assessment: Impression: #1 Acute hypoxic respiratory failure secondary to an acute exacerbation of chronic obstructive pulmonary disease, complicated by community-acquired right lower lobe pneumonia. #2 Chronic and ongoing tobacco dependence. #3 History of CVA with minimal left-sided residual weakness. Ambulates with a walker. #4 Essential hypertension. #5 Degenerative joint disease. #6 Hyperlipidemia. #7 Hypothyroidism. #8 Cachexia. Plan: The patient was seen and evaluated by Dr. Esquivel. We'll continue with the current treatment plan. Continue to titrate down the FiO2 as tolerated. She is again educated regarding the importance of complete smoking cessation. She would benefit from a follow-up in our office for full pulmonary function testing to evaluate the severity of her COPD and make recommendations for maintenance medications. In the interim, we'll continue to follow and make further recommendations based on her clinical status. I, the cosigning physician, performed a history & physical examination of the patient. Lungs sounds with bilateral end expiratory wheeze, crackles in the right posterior base Maintaining good O2 saturations in the 90s on 4 L/m per nasal cannula. I discussed the assessment and plan of care with my nurse practi Hayley cardenas. I attest to the above note as dictated by her.
[2019-01-27] MEDS: PRIMIDONE 50 MG TAB PO SCH (12:11)
[2019-01-27 12:27] LABS: Glucose,Whole Blood 126 mg/dL (75-99)
[2019-01-27] MEDS: INSULIN ASPART (NovoLOG) 100 UNIT/ML VIAL SQ SCH ×3 (12:34→20:54)
[2019-01-27 12:49] LABS: Appearance,Urine Clear (Clear); Bilirubin,Urine Negative (Negative); Blood,Urine Negative (Negative); Color,Urine Yellow; Glucose,Urine (UA) Negative (Negative); Ketones,Urine Negative (Negative); Leukocyte Esterase,Urine Negative (Negative); Nitrite,Urine Negative (Negative); PH, Urine 7.5 (5.0-8.0); Protein,Urine Negative (Negative); Specific Gravity,Urine 1.016 (1.001-1.035)
--- NOTE | 2019-01-27 13:22 | CDI ---
Documentation Clarification Form Date: 01/27/2019 1:12:11 PM From: Karolina Romero CCS, CCDS Admit Date: 01/25/2019 3:29:00 PM Patient Name: Elicia Zurita Visit Number: [id number] Discharge Date: ATTENTION: The Clinical Documentation Specialists (CDI) and [facility] Coding Staff appreciate your assistance in clarifying documentation. Please respond to the clarification below the line at the bottom and electronically sign. The CDI & [facility] Coding staff will review the response and follow-up if needed. Please note: Queries are made part of the Legal Health Record. If you have any questions, please contact the author of this message via ITS. Dr. Kyleigh Garcia: Per the pulmonary notes, the patient is frail, cachectic and diagnosed with cachexia. Also noted to have a poor appetite & weakness by the attending progress notes. History/Risk Factors: COPD, long time smoker, CVA w/minimal left side residual weakness, Hypertension, Hyperlipidemia, Hypothyroidism, OA. Clinical Indicators: Presented with SOB, poor appetite & weakness, productive cough, long time smoker. Diagnosed with Pneumonia, Acute exacerbation of COPD & Acute Hypoxic Respiratory Failure Labs: total Protein 6.5 - 5.9* - 6.1*; Albumin 3.5 - 3.2* - 3.3* Current BMI: 16.8 Nutritional Assessment: Weak gait, appetite fair, Consuming 50-75% meals, physically underweight, Inadequate energy level Treatment: Ensure Enlive nutrition supplement, In your professional opinion, can you please clarify if these findings signify one of the following conditions? Mild Protein-Calorie Malnutrition Moderate Protein-Calorie Malnutrition Severe Protein-Calorie Malnutrition Other condition, please specify Unable to determine (Last Revision: February 2018) Mild protein calorie malnutrition MTDD
[2019-01-27 17:11] LABS: Glucose,Whole Blood 174 mg/dL (75-99)
[2019-01-27] MEDS: HYDROcodone/APAP 10-325MG 1 EACH TAB PO PRN (19:33)
[2019-01-27 20:47] LABS: Glucose,Whole Blood 186 mg/dL (75-99)
[2019-01-27] MEDS: MELATONIN 1 MG TAB PO SCH (20:54)
[2019-01-28] MEDS: methylPREDNISolone SOD SUCCI 125 MG/2 ML VIAL IV SCH ×5 (00:02→21:50)
[2019-01-28] MEDS: LEVOTHYROXINE 50 MCG TAB PO SCH (06:10)
[2019-01-28 07:28] LABS: Basophils % (A) 0 %; Eosinophils % (A) 0 %; HCT 41.1 % (34.0-46.0); HGB 13.1 gm/dL (11.4-16.0); Lymphocytes # (A) 0.6 k/uL (1.0-4.8); Lymphocytes % (A) 4 %; MCH 30.8 pg (25.0-35.0); MCHC 31.8 g/dL (31.0-37.0); Mean Platelet Volume 6.6; Monocytes # (A) 0.5 k/uL (0-1.0); Monocytes % (A) 3 %; Neutrophils # (A) 14.4 k/uL (1.3-7.7); Neutrophils % (A) 93 %; Platelet Count 472 k/uL (150-450); RBC 4.24 m/uL (3.80-5.40); RDW 13.5 % (11.5-15.5); WBC 15.6 k/uL (3.8-10.6)
[2019-01-28 07:29] LABS: Glucose,Whole Blood 137 mg/dL (75-99)
[2019-01-28 07:34] LABS: ALT 102 U/L (9-52); AST 61 U/L (14-36); Albumin 3.2 g/dL (3.5-5.0); Alkaline Phosphatase 89 U/L (38-126); Anion Gap 5 mmol/L; Blood Urea Nitrogen 30 mg/dL (7-17); Calcium 9.7 mg/dL (8.4-10.2); Carbon Dioxide 34 mmol/L (22-30); Chloride 97 mmol/L (98-107); Glucose 130 mg/dL (74-99); Potassium 5.2 mmol/L (3.5-5.1); Sodium 136 mmol/L (137-145); Total Bilirubin 0.5 mg/dL (0.2-1.3); Total Protein 5.9 g/dL (6.3-8.2)
[2019-01-28] MEDS: IPRATROPIUM-ALBUTEROL 3 ML NEB INHALATION SCH ×4 (07:58→20:25)
[2019-01-28] MEDS: SYMBICORT 160-4.5 MCG INHALER INHALATION SCH ×2 (07:59→20:25)
[2019-01-28] MEDS ORDERED: SODIUM POLYSTYRENE SULFONATE 15 GM/60 ML BOTTLE PO STA (08:15)
[2019-01-28] MEDS: INSULIN ASPART (NovoLOG) 100 UNIT/ML VIAL SQ SCH ×4 (08:19→21:50)
[2019-01-28] MEDS: PANTOPRAZOLE 40 MG TABLET PO SCH (08:25)
[2019-01-28] MEDS: ASPIRIN 325 MG TAB PO SCH (08:25)
[2019-01-28] MEDS: HYDROCHLOROTHIAZIDE 25 MG TAB PO SCH (08:26)
[2019-01-28] MEDS: PRIMIDONE 50 MG TAB PO SCH (08:26)
[2019-01-28] MEDS: AZITHROMYCIN 500 MG TAB PO SCH (08:26)
[2019-01-28] MEDS: ENOXAPARIN 40 MG/0.4 ML SYRINGE SQ SCH (08:27)
[2019-01-28] MEDS: CLOPIDOGREL 75 MG TAB PO SCH (08:27)
--- NOTE | 2019-01-28 08:45 | US ---
EXAMINATION TYPE: US liver DATE OF EXAM: 01/28/2019 COMPARISON: NONE CLINICAL HISTORY: elevated liver enzymes. Elevated liver enzymes, exam done portable. EXAM MEASUREMENTS: Liver Length: 17.8 cm Gallbladder Wall: 0.2 cm CBD: 0.4 cm Right Kidney: 6.6 x 2.4 x 2.9 cm Pancreas: wnl Liver: measures in upper limits of normal, mildly heterogeneous, 1.1 x 0.9 x 1.4cm hyperechoic lesio n seen Gallbladder: wnl Evidence for sonographic Villasenor's sign: no CBD: visualized portions wnl, limited by overlying bowel gas Right Kidney: measures small in size IMPRESSION: Mildly heterogenous echotexture of the hepatic parenchyma is seen that is nonspecific and could relat e to mild hepatic steatosis, hepatitis or other hepatocellular disease. Additionally there is a hyper echoic 1.4 cm hepatic lesion. In a patient with no history of underlying hepatocellular disease this most commonly relates to a hemangioma however given the heterogenous hepatic echotexture three-phase enhanced CT abdomen or MR are recommended for further characterization.
--- NOTE | 2019-01-28 09:47 | P.PN ---
Subjective Progress Note Date: 01/28/19 This is a 78-year-old female patient presents to the ER with complaints of shortness of breath, poor appetite and weakness. Patient states that symptoms started last Thursday. Patient reports that symptoms have progressively gotten worse. Patient reports she's had productive cough. Patient denies any fevers. Patient denies nausea vomiting or diarrhea. Patient has past medical history of depression, COPD, CVA with left-sided residual weakness, hypertension, hypothyroidism, heart murmur in which she follows with cardiology services every 6 months, diverticulitis and arthritis. Patient also reports she was previously smoked for quitting 9 days ago. Patient states she lives with daughter and so n-in-law. Patient denies home oxygen use. Chest x-ray completed in ER showing chronic changes without acute pulmonary process. EKG completed showing normal sinus rhythm, possible left atrial enlargement, left axis deviation. Influenza swab ordered. Sputum culture ordered. Patient started on Solu-Medrol 60 mg IV every 6 hours. Patient also started on azithromycin and Rocephin. Dr. Esquivel has been consulted for pulmonary services. At this time patient denies chest pain. Patient does complain of shortness of breath with activity. Patient is having productive cough. Patient denies nausea vomiting or diarrhea. Patient denies any urinary burning or frequency on 01/26/2019 patient currently resting comfortably in wheelchair post chest x- ray. Patient states some improvement with shortness of breath. At this time patient remains on IV steroids and IV antibiotics. Pulmonary services have been consulted. Influenza is negative. Patient remained short of breath with exertion. Patient denies chest pain. Patient denies nausea vomiting or diarrhea On 01/27/2019 patient is alert and oriented resting in bed. Patient reports she had sleeping last night due to discomfort. Requesting melatonin be ordered. Patient does report some improvement with shortness of breath. Being followed by pulmonary services. Remains on IV steroids and DuoNeb breathing treatments. Patient's white blood cell increasing to 28.5. Patient is on IV steroids. Will order urinary analysis and blood culture. Patient has been afebrile. Patient's liver enzymes elevated. Staring currently on hold. At this time patient denies chest pain. Patient denies nausea vomiting or diarrhea. Patient denies any urinary burning or frequency. On 01/28/2019 patient is alert and oriented to 3 resting comfortably in bed. Patient reports significant improvement. Patient also reports that she got a good night sleep at that additional melatonin. Patient maintained on IV steroids at this time. Liver ultrasound completed. At this time patient denies chest pain or shortness breath. Patient denies nausea vomiting or diarrhea. Patient will denies any urinary burning or frequency. Objective - Vital Signs Vital signs: Vital Signs Temp 97.5 F L 01/28/19 05:00 Pulse 82 01/28/19 08:12 Resp 17 01/28/19 08:00 BP 118/69 01/28/19 05:00 Pulse Ox 97 01/28/19 05:00 Intake & Output 01/27/19 01/28/19 01/28/19 18:59 06:59 18:59 Intake Total 50 237 Balance 50 237 Intake: Intake, IV Titration 50 Amount cefTRIAXone 1 gm In 50 Sodium Chloride 0.9% 50 ml @ 100 mls/hr IVPB Q24HR [facility] Rx#:[id number] Oral 237 Other: Voiding Method Toilet Toilet Toilet # Voids 1 - Exam Head normocephalic Neck supple Lungs right lower lobe Ronchi with expiratory wheezing throughout Heart regular rate and rhythm S1-S2, no rub or gallop Abdomen is soft nontender nondistended positive bowel sounds no hepatosplenomegaly Extremities no edema Neuro alert and orientated to 3 - Labs CBC & Chem 7: 01/28/19 06:30 01/28/19 06:30 Labs: Abnormal Lab Results - Last 24 Hours (Table) 01/27/19 01/27/19 01/27/19 Range/Units 12:26 17:09 20:34 WBC (3.8-10.6) k/uL Plt Count (150-450) k/uL Neutrophils # (1.3-7.7) k/uL Lymphocytes # (1.0-4.8) k/uL Sodium (137-145) mmol/L Potassium (3.5-5.1) mmol/L Chloride (98-107) mmol/L Carbon Dioxide (22-30) mmol/L BUN (7-17) mg/dL Creatinine (0.52-1.04) mg/dL Glucose (74-99) mg/dL POC Glucose (mg/dL) 126 H 174 H 186 H (75-99) mg/dL AST (14-36) U/L ALT (9-52) U/L Total Protein (6.3-8.2) g/dL Albumin (3.5-5.0) g/dL 01/28/19 01/28/19 01/28/19 Range/Units 06:30 06:30 07:27 WBC 15.6 H (3.8-10.6) k/uL Plt Count 472 H (150-450) k/uL Neutrophils # 14.4 H (1.3-7.7) k/uL Lymphocytes # 0.6 L (1.0-4.8) k/uL Sodium 136 L (137-145) mmol/L Potassium 5.2 H (3.5-5.1) mmol/L Chloride 97 L (98-107) mmol/L Carbon Dioxide 34 H (22-30) mmol/L BUN 30 H (7-17) mg/dL Creatinine 0.46 L (0.52-1.04) mg/dL Glucose 130 H (74-99) mg/dL POC Glucose (mg/dL) 137 H (75-99) mg/dL AST 61 H (14-36) U/L ALT 102 H (9-52) U/L Total Protein 5.9 L (6.3-8.2) g/dL Albumin 3.2 L (3.5-5.0) g/dL Assessment and Plan Assessment: 1. Acute hypoxic respiratory failure secondary to acute exacerbation of COPD and possible right lower lobe pneumonia. Initial chest x-ray completed showing chronic changes without acute pulmonary process. Patient started on Solu-Medrol along with IV antibiotics. Dr. Esquivel following for pulmonary care. Two-view chest x-ray completed showing clinical correlation recommended for mild right lower lobe pneumonia. Patient remains on Rocephin and Zithromax. Sputum culture pending 2. Acute exacerbation of COPD. Patient currently on IV Solu-Medrol. Pulmonary service is following 3. Acute right lower lobe pneumonia. Patient currently on Zithromax and Rocephin. followed by pulmonary services 4. Nicotine dependence. Patient reports days ago. Patient denies nicotine patch time. Patient educated greater than 3 minutes on smoking patient 5. History of CVA in 2017 with left-sided residual. Patient maintained on Plavix and aspirin 6. Hypothyroidism. Synthroid resumed 7. History of depression 8. History of diverticulitis 9. Essential hypertension. Home meds resumed 10. Degenerative joint disease 11. Hyperlipidemia. Statin currently on hold due to elevated liver enzymes will continue to monitor 12. Elevated liver enzymes. Lipitor on hold. AST 88 and ALT 100. Liver ultrasound completed showing a mildly heterogeneous echotexture of the hepatic parenchyma seen that is nonspecific and could relate to mild hepatic steatosis, hepatitis or other hepatocellular disease. Additionally there is hyperechoic 1.4 cm hepatic lesion. In a patient with known history of underlying hepatocellular disease is most commonly relates to hemangioma however given the heterogeneous hepatic echotexture [address] abdomen or MRI recommended for further characterization 13. Essential Tremors. Patient reports she follows with Dr. Canales for neurology. Patient's home medication of Primidone ordered. 14. Hyperkalemia. Potassium 5.2. Kayexalate will be given. Recheck at 1 PM today DVT prophylaxis Lovenox. GI prophylaxis Protonix Physical therapy consulted Patient currently does not wear home O2. Patient will likely need upon discharge. I performed an examination of the patient and discussed their management with the Nurse Practitioner. I have reviewed the Nurse Practitioner's notes and agree with the documented findings and plan of care
--- NOTE | 2019-01-28 11:41 | P.PN ---
Subjective Progress Note Date: 01/28/19 Principal diagnosis: Acute exacerbation of COPD complicated by acute community-acquired right lower lobe pneumonia This is a 78-year-old female with history of COPD, smoker until 11 days ago, not O2 dependent, not prednisone dependent, patient was brought into the ER with almost a few weeks history of productive cough, shortness of breath, some wheezing. Her symptoms had been getting progressively worse over the last few days. Patient also had some blood-tinged sputum yesterday. In the ER she was noted to have a questionable limited infiltrate in the right lower lobe, patient was admitted, placed on bronchodilators, antibiotics, steroids, and I was asked to see her on consultation. CBC did show evidence of leukocytosis. Electrolytes were noted to be normal. Influenza screen was noted to be negative. Patient was placed on DuoNeb, Rocephin and Zithromax, Solu-Medrol, and Symbicort. During my evaluation, the patient had mostly multiple constitutional symptoms, complaining of weight loss, felt chilly but no documented fever, had mostly symptoms of cough upon presentation, and blood- tinged sputum, no nausea no vomiting no abdominal pain no melena no hematemesis is no dysuria and no frequency no urgency. No headache no blurred vision. The patient is seen today 01/27/2019 in follow-up on the regular medical floor. She is awake and alert in no acute distress. She is still somewhat dyspneic on minimal exertion. Loose nonproductive cough. No chills or night sweats. Sputum cultures pending. Currently afebrile. Maintaining O2 saturations in the low 90s on 4 L/m per nasal cannula. She was 82% on room air post walk. White count 28.5. Hemoglobin 13.1. Creatinine 0.44. She is currently on DuoNeb inhalations, Symbicort, IV Solu-Medrol and antibiotics in the form of ceftriaxone and azithromycin. The patient is seen today 01/28/2019 in follow-up on the regular medical floor. She is awake and alert in no acute distress. Sitting up at the bedside. She is breathing easier today as compared to yesterday. Not quite back to her baseline. Currently on 4 L per nasal cannula to maintain O2 saturations in the 90s. Sputum culture pending. White count 15.6. Hemoglobin 13.1. Creatinine 0.46. She remains on DuoNeb inhalations, Symbicort, IV Solu-Medrol. Objective - Vital Signs Vital signs: Vital Signs Temp 97.5 F L 01/28/19 05:00 Pulse 82 01/28/19 08:12 Resp 17 01/28/19 08:00 BP 118/69 01/28/19 05:00 Pulse Ox 97 01/28/19 05:00 Intake & Output 01/27/19 01/28/19 01/28/19 18:59 06:59 18:59 Intake Total 50 237 Balance 50 237 Weight 48.534 kg Intake: Intake, IV Titration 50 Amount cefTRIAXone 1 gm In 50 Sodium Chloride 0.9% 50 ml @ 100 mls/hr IVPB Q24HR [facility] Rx#:[id number] Oral 237 Other: Voiding Method Toilet Toilet Toilet # Voids 1 - Exam GENERAL EXAM: 78-year-old female. Frail, cachectic. Alert, comfortable in no apparent distress. On 4 L nasal cannula. HEAD: Normocephalic. EYES: Normal reaction of pupils, equal size. NOSE: Clear with pink turbinates. THROAT: No erythema or exudates. NECK: No masses, no JVD. CHEST: No chest wall deformity. LUNGS: Equal air entry with crackles in the right posterior bases, end e xpiratory wheeze, diminished CVS: S1 and S2 normal with no audible murmur, regular rhythm. ABDOMEN: No hepatosplenomegaly, normal bowel sounds, no guarding or rigidity. SPINE: No scoliosis or deformity SKIN: No rashes CENTRAL NERVOUS SYSTEM: No focal deficits, tone is normal in all 4 extremities. EXTREMITIES: There is no peripheral edema. No clubbing, no cyanosis. Peripheral pulses are intact. - Labs CBC & Chem 7: 01/28/19 06:30 01/28/19 06:30 Labs: Abnormal Lab Results - Last 24 Hours (Table) 01/27/19 01/27/19 01/27/19 Range/Units 12:26 17:09 20:34 WBC (3.8-10.6) k/uL Plt Count (150-450) k/uL Neutrophils # (1.3-7.7) k/uL Lymphocytes # (1.0-4.8) k/uL Sodium (137-145) mmol/L Potassium (3.5-5.1) mmol/L Chloride (98-107) mmol/L Carbon Dioxide (22-30) mmol/L BUN (7-17) mg/dL Creatinine (0.52-1.04) mg/dL Glucose (74-99) mg/dL POC Glucose (mg/dL) 126 H 174 H 186 H (75-99) mg/dL AST (14-36) U/L ALT (9-52) U/L Total Protein (6.3-8.2) g/dL Albumin (3.5-5.0) g/dL 01/28/19 01/28/19 01/28/19 Range/Units 06:30 06:30 07:27 WBC 15.6 H (3.8-10.6) k/uL Plt Count 472 H (150-450) k/uL Neutrophils # 14.4 H (1.3-7.7) k/uL Lymphocytes # 0.6 L (1.0-4.8) k/uL Sodium 136 L (137-145) mmol/L Potassium 5.2 H (3.5-5.1) mmol/L Chloride 97 L (98-107) mmol/L Carbon Dioxide 34 H (22-30) mmol/L BUN 30 H (7-17) mg/dL Creatinine 0.46 L (0.52-1.04) mg/dL Glucose 130 H (74-99) mg/dL POC Glucose (mg/dL) 137 H (75-99) mg/dL AST 61 H (14-36) U/L ALT 102 H (9-52) U/L Total Protein 5.9 L (6.3-8.2) g/dL Albumin 3.2 L (3.5-5.0) g/dL Assessment and Plan Assessment: Impression: #1 Acute hypoxic respiratory failure secondary to an acute exacerbation of chronic obstructive pulmonary disease, complicated by community-acquired right lower lobe pneumonia. #2 Chronic and ongoing tobacco dependence. #3 History of CVA with minimal left-sided residual weakness. Ambulates with a walker. #4 Essential hypertension. #5 Degenerative joint disease. #6 Hyperlipidemia. #7 Hypothyroidism. #8 Cachexia. Plan: The patient was seen and evaluated by Dr. Esquivel. She has improved but still not quite back to her baseline. We'll continue with the current treatment plan. Continue to titrate down the FiO2 as tolerated. She is again educated regarding the importance of complete smoking cessation. We'll continue to follow and make further recommendations based on her clinical status. I, the cosigning physician, performed a history & physical examination of the patient. Lungs sounds with bilateral end expiratory wheeze, crackles in the rig ht posterior base Maintaining good O2 saturations in the 90s on 4 L/m per nasal cannula. I discussed the assessment and plan of care with my nurse practitioner, Hayley Mendoza. I attest to the above note as dictated by her.
[2019-01-28 12:38] LABS: Glucose,Whole Blood 168 mg/dL (75-99)
[2019-01-28 17:26] LABS: Glucose,Whole Blood 137 mg/dL (75-99)
[2019-01-28 19:45] LABS: Glucose,Whole Blood 177 mg/dL (75-99)
[2019-01-28] MEDS: MELATONIN 1 MG TAB PO SCH (21:50)
[2019-01-29] MEDS: LEVOTHYROXINE 50 MCG TAB PO SCH (06:03)
[2019-01-29] MEDS: methylPREDNISolone SOD SUCCI 125 MG/2 ML VIAL IV SCH ×4 (06:03→20:56)
[2019-01-29] MEDS: HYDROCHLOROTHIAZIDE 25 MG TAB PO SCH (07:31)
[2019-01-29] MEDS: ASPIRIN 325 MG TAB PO SCH (07:31)
[2019-01-29] MEDS: CLOPIDOGREL 75 MG TAB PO SCH (07:31)
[2019-01-29] MEDS: HYDROcodone/APAP 10-325MG 1 EACH TAB PO PRN ×2 (07:32→16:02)
[2019-01-29] MEDS: PRIMIDONE 50 MG TAB PO SCH (07:32)
[2019-01-29] MEDS: PANTOPRAZOLE 40 MG TABLET PO SCH (07:32)
[2019-01-29 07:33] LABS: Glucose,Whole Blood 139 mg/dL (75-99)
[2019-01-29] MEDS: ENOXAPARIN 40 MG/0.4 ML SYRINGE SQ SCH (07:35)
[2019-01-29] MEDS: AZITHROMYCIN 500 MG TAB PO SCH (07:35)
[2019-01-29] MEDS: INSULIN ASPART (NovoLOG) 100 UNIT/ML VIAL SQ SCH ×4 (07:50→20:55)
[2019-01-29] MEDS: SYMBICORT 160-4.5 MCG INHALER INHALATION SCH ×2 (07:58→20:38)
[2019-01-29] MEDS: IPRATROPIUM-ALBUTEROL 3 ML NEB INHALATION SCH ×4 (07:58→20:38)
[2019-01-29 09:19] LABS: Basophils % (A) 0 %; Eosinophils % (A) 0 %; HCT 42.5 % (34.0-46.0); HGB 13.1 gm/dL (11.4-16.0); Lymphocytes # (A) 0.4 k/uL (1.0-4.8); Lymphocytes % (A) 3 %; MCHC 30.8 g/dL (31.0-37.0); MCV 97.4 fL (80.0-100.0); Mean Platelet Volume 6.5; Monocytes # (A) 0.3 k/uL (0-1.0); Monocytes % (A) 2 %; Neutrophils # (A) 13.8 k/uL (1.3-7.7); Neutrophils % (A) 95 %; Platelet Count 511 k/uL (150-450); RBC 4.36 m/uL (3.80-5.40); RDW 13.5 % (11.5-15.5); WBC 14.6 k/uL (3.8-10.6)
[2019-01-29 09:31] LABS: ALT 101 U/L (9-52); AST 41 U/L (14-36); Albumin 3.4 g/dL (3.5-5.0); Alkaline Phosphatase 84 U/L (38-126); Anion Gap 8 mmol/L; Blood Urea Nitrogen 29 mg/dL (7-17); Carbon Dioxide 33 mmol/L (22-30); Chloride 96 mmol/L (98-107); Glucose 201 mg/dL (74-99); Sodium 137 mmol/L (137-145); Total Bilirubin 0.4 mg/dL (0.2-1.3); Total Protein 6.1 g/dL (6.3-8.2)
[2019-01-29 11:51] LABS: Glucose,Whole Blood 185 mg/dL (75-99)
--- NOTE | 2019-01-29 12:22 | P.PN ---
Subjective Progress Note Date: 01/29/19 Principal diagnosis: acute hypoxic respiratory failure secondary to COPD exacerbation and community- acquired right lower lobe pneumonia. Acute exacerbation of COPD complicated by acute community-acquired right lower lobe pneumonia This is a 78-year-old female with history of COPD, smoker until 11 days ago, not O2 dependent, not prednisone dependent, patient was brought into the ER with almost a few weeks history of productive cough, shortness of breath, some wheezing. Her symptoms had been getting progressively worse over the last few days. Patient also had some blood-tinged sputum yesterday. In the ER she was noted to have a questionable limited infiltrate in the right lower lobe, patient was admitted, placed on bronchodilators, antibiotics, steroids, and I was asked to see her on consultation. CBC did show evidence of leukocytosis. Electrolytes were noted to be normal. Influenza screen was noted to be negative. Patient was placed on DuoNeb, Rocephin and Zithromax, Solu-Medrol, and Symbicort. During my evaluation, the patient had mostly multiple constit utional symptoms, complaining of weight loss, felt chilly but no documented fever, had mostly symptoms of cough upon presentation, and blood-tinged sputum, no nausea no vomiting no abdominal pain no melena no hematemesis is no dysuria and no frequency no urgency. No headache no blurred vision. The patient is seen today 01/27/2019 in follow-up on the regular medical floor. She is awake and alert in no acute distress. She is still somewhat dyspneic on minimal exertion. Loose nonproductive cough. No chills or night sweats. Sputum cultures pending. Currently afebrile. Maintaining O2 saturations in the low 90s on 4 L/m per nasal cannula. She was 82% on room air post walk. White count 28.5. Hemoglobin 13.1. Creatinine 0.44. She is currently on DuoNeb inhalations, Symbicort, IV Solu-Medrol and antibiotics in the form of ceftriaxone and azithromycin. The patient is seen today 01/28/2019 in follow-up on the regular medical floor. She is awake and alert in no acute distress. Sitting up at the bedside. She is breathing easier today as compared to yesterday. Not quite back to her baseline. Currently on 4 L per nasal cannula to maintain O2 saturations in the 90s. Sputum culture pending. White count 15.6. Hemoglobin 13.1. Creatinine 0.46. She remains on DuoNeb inhalations, Symbicort, IV Solu-Medrol. Reevaluated on 01/29/2019, patient continues to gradually improve, feeling much better today, hardly any cough, no wheezing, no shortness of breath. Patient remains on few liters nasal cannula, and she is relatively asymptomatic.labs were reviewed, she has a bit of leukocytosis with WBC count of 14.6 hemoglobin is 13.1 lites are normal renal profile is normal.remains on multiple updrafts, Zithromax, Rocephin, and Symbicort.ultrasound of the liver showed a questionable hemangioma and mild hepatic steatosis.this was done to evaluate her liver enzymes. Objective - Vital Signs Vital signs: Vital Signs Temp 98.0 F 01/29/19 04:38 Pulse 80 01/29/19 12:07 Resp 16 01/29/19 04:38 BP 120/59 01/29/19 04:38 Pulse Ox 98 01/29/19 04:38 Intake & Output 01/28/19 01/29/19 01/29/19 18:59 06:59 18:59 Intake Total 400 Balance 400 Weight 48.534 kg Intake: Intake, IV Titration 400 Amount cefTRIAXone 1 gm In 400 Sodium Chloride 0.9% 50 ml @ 100 mls/hr IVPB Q24HR [facility] Rx#:[id number] Other: Voiding Method Toilet Toilet Toilet # Voids 2 2 - Exam Physical Exam: Revealed a 78-year-old, frail looking, in no distress. On 4 L nasal cannula. Head: Atraumatic, normocephalic. HEENT:[Neck is supple.] [No neck masses.] [No thyromegaly.] [No JVD.]PERRLA, EOMI, no icterus. Chest: [diminished breath sound bilaterally no crackles or rhonchi or wheezes..] Cardiac Exam: [Normal S1 and S2, no S3 gallop, no murmur.] Abdomen: [Soft, nontender, no megaly, no rebound, no guarding, normal bowel sounds.] Extremities: [No clubbing, no edema, no cyanosis.] Neurological Exam: [No focal neurologic deficit.] psychiatric: Normal mood affect and mental status examination. Skin: No rashes. Lymphatics: No lymphadenopathy. - Labs CBC & Chem 7: 01/29/19 08:54 01/29/19 08:54 Labs: Abnormal Lab Results - Last 24 Hours (Table) 01/28/19 01/28/19 01/28/19 Range/Units 12:35 17:24 19:43 WBC (3.8-10.6) k/uL MCHC (31.0-37.0) g/dL Plt Count (150-450) k/uL Neutrophils # (1.3-7.7) k/uL Lymphocytes # (1.0-4.8) k/uL Chloride (98-107) mmol/L Carbon Dioxide (22-30) mmol/L BUN (7-17) mg/dL Glucose (74-99) mg/dL POC Glucose (mg/dL) 168 H 137 H 177 H (75-99) mg/dL AST (14-36) U/L ALT (9-52) U/L Total Protein (6.3-8.2) g/dL Albumin (3.5-5.0) g/dL 01/29/19 01/29/19 01/29/19 Range/Units 07:29 08:54 08:54 WBC 14.6 H (3.8-10.6) k/uL MCHC 30.8 L (31.0-37.0) g/dL Plt Count 511 H (150-450) k/uL Neutrophils # 13.8 H (1.3-7.7) k/uL Lymphocytes # 0.4 L (1.0-4.8) k/uL Chloride 96 L (98-107) mmol/L Carbon Dioxide 33 H (22-30) mmol/L BUN 29 H (7-17) mg/dL Glucose 201 H (74-99) mg/dL POC Glucose (mg/dL) 139 H (75-99) mg/dL AST 41 H (14-36) U/L ALT 101 H (9-52) U/L Total Protein 6.1 L (6.3-8.2) g/dL Albumin 3.4 L (3.5-5.0) g/dL 01/29/19 Range/Units 11:49 WBC (3.8-10.6) k/uL MCHC (31.0-37.0) g/dL Plt Count (150-450) k/uL Neutrophils # (1.3-7.7) k/uL Lymphocytes # (1.0-4.8) k/uL Chloride (98-107) mmol/L Carbon Dioxide (22-30) mmol/L BUN (7-17) mg/dL Glucose (74-99) mg/dL POC Glucose (mg/dL) 185 H (75-99) mg/dL AST (14-36) U/L ALT (9-52) U/L Total Protein (6.3-8.2) g/dL Albumin (3.5-5.0) g/dL Microbiology - Last 24 Hours (Table) 01/26/19 05:45 Gram Stain - Final Sputum Sputum Culture - Final 01/27/19 10:32 Blood Culture - Preliminary Blood No Growth after 24 hours Assessment and Plan Assessment: Impression: 1 acute hypoxic respiratory failure secondary to acute exacerbation of COPD, and strongly suspect community-acquired right lower lobe pneumonia. 2 acute exacerbation of COPD 3 acute right lower lobe pneumonia, community-acquired. 4 nicotine dependence syndrome, counseled regarding smoking cessation. Patient stated that she quit smoking 11 days ago. 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 Patient uses a wal ker. 6 benign essential hypertension 7 degenerative joint disease 8 history of hyperlipidemia 9 hypothyroidism, on Synthroid replacement therapy. 10 elevated liver enzymes, being evaluated by the admitting physician. Ultrasound report was noted. Recommendation: continue present supportive care measures, bronchodilators, antibiotics, steroids, GI and DVT prophylaxis, patient is back on her usual meds as listed for her multiple medical problems, consider repeat chest x-ray in the next 24 hours, and consider discharge planning in the next 24-48 hours at the most. We'll continue to follow. Time with Patient: Less than 30
--- NOTE | 2019-01-29 12:48 | P.PN ---
Subjective Progress Note Date: 01/29/19 This is a 78-year-old female patient presents to the ER with complaints of shortness of breath, poor appetite and weakness. Patient states that symptoms started last Thursday. Patient reports that symptoms have progressively gotten worse. Patient reports she's had productive cough. Patient denies any fevers. Patient denies nausea vomiting or diarrhea. Patient has past medical history of depression, COPD, CVA with left-sided residual weakness, hypertension, hypothyroidism, heart murmur in which she follows with cardiology services every 6 months, diverticulitis and arthritis. Patient also reports she was previously smoked for quitting 9 days ago. Patient states she lives with daughter and s on-in-law. Patient denies home oxygen use. Chest x-ray completed in ER showing chronic changes without acute pulmonary process. EKG completed showing normal sinus rhythm, possible left atrial enlargement, left axis deviation. Influenza swab ordered. Sputum culture ordered. Patient started on Solu-Medrol 60 mg IV every 6 hours. Patient also started on azithromycin and Rocephin. Dr. Esquivel has been consulted for pulmonary services. At this time patient denies chest pain. Patient does complain of shortness of breath with activity. Patient is having productive cough. Patient denies nausea vomiting or diarrhea. Patient denies any urinary burning or frequency on 01/26/2019 patient currently resting comfortably in wheelchair post chest x- ray. Patient states some improvement with shortness of breath. At this time patient remains on IV steroids and IV antibiotics. Pulmonary services have been consulted. Influenza is negative. Patient remained short of breath with exertion. Patient denies chest pain. Patient denies nausea vomiting or diarrhea On 01/27/2019 patient is alert and oriented resting in bed. Patient reports she had sleeping last night due to discomfort. Requesting melatonin be ordered. Patient does report some improvement with shortness of breath. Being followed by pulmonary services. Remains on IV steroids and DuoNeb breathing treatments. Patient's white blood cell increasing to 28.5. Patient is on IV steroids. Will order urinary analysis and blood culture. Patient has been afebrile. Patient's liver enzymes elevated. Staring currently on hold. At this time patient denies chest pain. Patient denies nausea vomiting or diarrhea. Patient denies any urinary burning or frequency. On 01/28/2019 patient is alert and oriented to 3 resting comfortably in bed. Patient reports significant improvement. Patient also reports that she got a go od night sleep at that additional melatonin. Patient maintained on IV steroids at this time. Liver ultrasound completed. At this time patient denies chest pain or shortness breath. Patient denies nausea vomiting or diarrhea. Patient will denies any urinary burning or frequency. On 01/29/2019 patient was seen and examined on the medical floor she is alert and oriented 3 in no apparent distress she is still complaining of shortness of breath with activity and complaining of cough otherwise no complaints there is no fever or chills no headache or dizziness no chest pain nausea or vomiting no abdominal pain no diarrhea and no urinary symptoms. Objective - Vital Signs Vital signs: Vital Signs Temp 98.0 F 01/29/19 04:38 Pulse 80 01/29/19 12:17 Resp 16 01/29/19 04:38 BP 120/59 01/29/19 04:38 Pulse Ox 98 01/29/19 04:38 Intake & Output 01/28/19 01/29/19 01/29/19 18:59 06:59 18:59 Intake Total 400 Balance 400 Weight 48.534 kg Intake: Intake, IV Titration 400 Amount cefTRIAXone 1 gm In 400 Sodium Chloride 0.9% 50 ml @ 100 mls/hr IVPB Q24HR [facility] Rx#:[id number] Other: Voiding Method Toilet Toilet Toilet # Voids 2 2 - Exam Head normocephalic and atraumatic Neck supple no JVD no goiter Lungs right lower lobe Ronchi with expiratory wheezing throughout Heart regular rate and rhythm S1-S2, no rub or gallop Abdomen is soft nontender nondistended positive bowel sounds no hepatospleno megaly Extremities no edema no cyanosis or clubbing Neuro alert and orientated to 3 - Labs CBC & Chem 7: 01/29/19 08:54 01/29/19 08:54 Labs: Abnormal Lab Results - Last 24 Hours (Table) 01/28/19 01/28/19 01/29/19 Range/Units 17:24 19:43 07:29 WBC (3.8-10.6) k/uL MCHC (31.0-37.0) g/dL Plt Count (150-450) k/uL Neutrophils # (1.3-7.7) k/uL Lymphocytes # (1.0-4.8) k/uL Chloride (98-107) mmol/L Carbon Dioxide (22-30) mmol/L BUN (7-17) mg/dL Glucose (74-99) mg/dL POC Glucose (mg/dL) 137 H 177 H 139 H (75-99) mg/dL AST (14-36) U/L ALT (9-52) U/L Total Protein (6.3-8.2) g/dL Albumin (3.5-5.0) g/dL 01/29/19 01/29/19 01/29/19 Range/Units 08:54 08:54 11:49 WBC 14.6 H (3.8-10.6) k/uL MCHC 30.8 L (31.0-37.0) g/dL Plt Count 511 H (150-450) k/uL Neutrophils # 13.8 H (1.3-7.7) k/uL Lymphocytes # 0.4 L (1.0-4.8) k/uL Chloride 96 L (98-107) mmol/L Carbon Dioxide 33 H (22-30) mmol/L BUN 29 H (7-17) mg/dL Glucose 201 H (74-99) mg/dL POC Glucose (mg/dL) 185 H (75-99) mg/dL AST 41 H (14-36) U/L ALT 101 H (9-52) U/L Total Protein 6.1 L (6.3-8.2) g/dL Albumin 3.4 L (3.5-5.0) g/dL Microbiology - Last 24 Hours (Table) 01/26/19 05:45 Gram Stain - Final Sputum Sputum Culture - Final 01/27/19 10:32 Blood Culture - Preliminary Blood No Growth after 24 hours Assessment and Plan Plan: 1. Acute hypoxic respiratory failure secondary to acute exacerbation of COPD and possible right lower lobe pneumonia. Initial chest x-ray completed showing chronic changes without acute pulmonary process. Patient started on Solu-Medrol along with IV antibiotics. Dr. Esquivel following for pulmonary care. Two-view chest x-ray completed showing clinical correlation recommended for mild right lower lobe pneumonia. Patient remains on Rocephin and Zithromax. Sputum culture pending 2. Acute exacerbation of COPD. Patient currently on IV Solu-Medrol. Pulmonary service is following 3. Acute right lower lobe pneumonia. Patient currently on Zithromax and Rocephin. followed by pulmonary services 4. Nicotine dependence. Patient reports days ago. Patient denies nicotine patch time. Patient educated greater than 3 minutes on smoking patient 5. History of CVA in 2017 with left-sided residual. Patient maintained on Plavix and aspirin 6. Hypothyroidism. Synthroid resumed 7. History of depression 8. History of diverticulitis 9. Essential hypertension. Home meds resumed 10. Degenerative joint disease 11. Hyperlipidemia. Statin currently on hold due to elevated liver enzymes will continue to monitor 12. Elevated liver enzymes. Lipitor on hold. AST 88 and ALT 100. Liver ultrasound completed showing a mildly heterogeneous echotexture of the hepatic parenchyma seen that is nonspecific and could relate to mild hepatic steatosis, hepatitis or other hepatocellular disease. Additionally there is hyperechoic 1.4 cm hepatic lesion. In a patient with known history of underlying hepatocellular disease is most commonly relates to hemangioma however given the heterogeneous hepatic echotexture [address] abdomen or MRI recommended for further characterization 13. Essential Tremors. Patient reports she follows with Dr. Canales for neurology. Patient's home medication of Primidone ordered. 14. Hyperkalemia. Potassium 5.2. Kayexalate will be given. Recheck at 1 PM today DVT prophylaxis Lovenox. GI prophylaxis Protonix Physical therapy consulted Patient currently does not wear home O2. Patient will likely need upon discharge.
[2019-01-29 17:04] LABS: Glucose,Whole Blood 148 mg/dL (75-99)
[2019-01-29 20:32] LABS: Glucose,Whole Blood 209 mg/dL (75-99)
[2019-01-29] MEDS: MELATONIN 1 MG TAB PO SCH (20:57)
[2019-01-30] MEDS: LEVOTHYROXINE 50 MCG TAB PO SCH (05:40)
[2019-01-30] MEDS: methylPREDNISolone SOD SUCCI 125 MG/2 ML VIAL IV SCH ×4 (05:40→23:15)
[2019-01-30 06:58] LABS: Glucose,Whole Blood 129 mg/dL (75-99)
[2019-01-30] MEDS: INSULIN ASPART (NovoLOG) 100 UNIT/ML VIAL SQ SCH ×4 (07:04→20:19)
[2019-01-30] MEDS: CLOPIDOGREL 75 MG TAB PO SCH (07:09)
[2019-01-30] MEDS: PANTOPRAZOLE 40 MG TABLET PO SCH (07:09)
[2019-01-30] MEDS: ASPIRIN 325 MG TAB PO SCH (07:09)
[2019-01-30] MEDS: AZITHROMYCIN 500 MG TAB PO SCH (07:09)
[2019-01-30] MEDS: PRIMIDONE 50 MG TAB PO SCH (07:10)
[2019-01-30] MEDS: ENOXAPARIN 40 MG/0.4 ML SYRINGE SQ SCH (07:10)
[2019-01-30] MEDS: HYDROcodone/APAP 10-325MG 1 EACH TAB PO PRN ×2 (07:10→14:49)
[2019-01-30] MEDS: HYDROCHLOROTHIAZIDE 25 MG TAB PO SCH (07:10)
[2019-01-30 07:52] LABS: Basophils % (A) 0 %; Eosinophils # (A) 0.1 k/uL (0-0.7); Eosinophils % (A) 0 %; HCT 41.5 % (34.0-46.0); HGB 13.5 gm/dL (11.4-16.0); Lymphocytes # (A) 0.5 k/uL (1.0-4.8); Lymphocytes % (A) 4 %; MCH 31.3 pg (25.0-35.0); MCHC 32.5 g/dL (31.0-37.0); MCV 96.3 fL (80.0-100.0); Monocytes # (A) 0.5 k/uL (0-1.0); Monocytes % (A) 4 %; Neutrophils # (A) 12.4 k/uL (1.3-7.7); Neutrophils % (A) 92 %; Platelet Count 480 k/uL (150-450); RBC 4.31 m/uL (3.80-5.40); RDW 13.4 % (11.5-15.5); WBC 13.4 k/uL (3.8-10.6)
[2019-01-30 07:59] LABS: Carbon Dioxide 36 mmol/L (22-30); Chloride 95 mmol/L (98-107); Glucose 116 mg/dL (74-99); Sodium 137 mmol/L (137-145)
[2019-01-30 08:00] LABS: ALT 91 U/L (9-52); AST 34 U/L (14-36); Albumin 3.1 g/dL (3.5-5.0); Alkaline Phosphatase 82 U/L (38-126); Anion Gap 6 mmol/L; Blood Urea Nitrogen 32 mg/dL (7-17); Calcium 9.7 mg/dL (8.4-10.2); Total Bilirubin 0.4 mg/dL (0.2-1.3); Total Protein 5.6 g/dL (6.3-8.2)
[2019-01-30] MEDS: IPRATROPIUM-ALBUTEROL 3 ML NEB INHALATION SCH ×4 (08:09→19:35)
[2019-01-30] MEDS: SYMBICORT 160-4.5 MCG INHALER INHALATION SCH ×2 (08:09→19:34)
--- NOTE | 2019-01-30 09:11 | XR ---
EXAMINATION TYPE: XR chest 2V DATE OF EXAM: 01/30/2019 COMPARISON: Prior chest x-ray 01/26/2019 HISTORY: Right lower lobe pneumonia TECHNIQUE: Frontal and lateral views of the chest are obtained. FINDINGS: Prominent lung lines are compatible with underlying COPD. There are overlying cardiac lead s. Apical pleural thickening is stable finding. Cardiac mediastinal silhouette, pulmonary vascularity and bennie are stable. Interstitium is mildly increased. Aorta is dense. Patient is rotated. Questiona ble positive spine sign on the lateral exam. IMPRESSION: Correlate for pneumonia. Follow-up as indicated.
[2019-01-30 12:15] LABS: Glucose,Whole Blood 157 mg/dL (75-99)
--- NOTE | 2019-01-30 13:31 | P.PN ---
Subjective Progress Note Date: 01/30/19 Principal diagnosis: acute hypoxic respiratory failure secondary to COPD exacerbation and community- acquired right lower lobe pneumonia. Acute exacerbation of COPD complicated by acute community-acquired right lower lobe pneumonia This is a 78-year-old female with history of COPD, smoker until 11 days ago, not O2 dependent, not prednisone dependent, patient was brought into the ER with almost a few weeks history of productive cough, shortness of breath, some wheezing. Her symptoms had been getting progressively worse over the last few days. Patient also had some blood-tinged sputum yesterday. In the ER she was noted to have a questionable limited infiltrate in the right lower lobe, patient was admitted, placed on bronchodilators, antibiotics, steroids, and I was asked to see her on consultation. CBC did show evidence of leukocytosis. Electrolytes were noted to be normal. Influenza screen was noted to be negative. Patient was placed on DuoNeb, Rocephin and Zithromax, Solu-Medrol, and Symbicort. During my evaluation, the patient had mostly multiple constit utional symptoms, complaining of weight loss, felt chilly but no documented fever, had mostly symptoms of cough upon presentation, and blood-tinged sputum, no nausea no vomiting no abdominal pain no melena no hematemesis is no dysuria and no frequency no urgency. No headache no blurred vision. The patient is seen today 01/27/2019 in follow-up on the regular medical floor. She is awake and alert in no acute distress. She is still somewhat dyspneic on minimal exertion. Loose nonproductive cough. No chills or night sweats. Sputum cultures pending. Currently afebrile. Maintaining O2 saturations in the low 90s on 4 L/m per nasal cannula. She was 82% on room air post walk. White count 28.5. Hemoglobin 13.1. Creatinine 0.44. She is currently on DuoNeb inhalations, Symbicort, IV Solu-Medrol and antibiotics in the form of ceftriaxone and azithromycin. The patient is seen today 01/28/2019 in follow-up on the regular medical floor. She is awake and alert in no acute distress. Sitting up at the bedside. She is breathing easier today as compared to yesterday. Not quite back to her baseline. Currently on 4 L per nasal cannula to maintain O2 saturations in the 90s. Sputum culture pending. White count 15.6. Hemoglobin 13.1. Creatinine 0.46. She remains on DuoNeb inhalations, Symbicort, IV Solu-Medrol. Reevaluated on 01/29/2019, patient continues to gradually improve, feeling much better today, hardly any cough, no wheezing, no shortness of breath. Patient remains on few liters nasal cannula, and she is relatively asymptomatic.labs were reviewed, she has a bit of leukocytosis with WBC count of 14.6 hemoglobin is 13.1 lites are normal renal profile is normal.remains on multiple updrafts, Zithromax, Rocephin, and Symbicort.ultrasound of the liver showed a questionable hemangioma and mild hepatic steatosis.this was done to evaluate her liver enzymes. Reevaluated today on 01/30/2019, patient feels generally weak, but she has no active pulmonary symptoms like cough wheezing or shortness of breath. Her chest x-ray which I reviewed showed dramatic improvement in her right lower lobe infiltrate. Obviously the radiologist did not compare both x-rays, we can [place] tell that there is a significant improvement comparing x-rays together. Labs were reviewed, relatively normal CBC WBC count is 13.4 relatively normal electrolytes bicarb is 36 and that is expected considering her underlying COPD. Patient remains on IV antibiotics, however she could be switched to oral Zithromax in a.m., and finish 5 more days of Zithromax on outpatient basis. Objective - Vital Signs Vital signs: Vital Signs Temp 97.3 F L 01/30/19 04:17 Pulse 84 01/30/19 12:01 Resp 16 01/30/19 04:17 BP 124/73 01/30/19 04:17 Pulse Ox 98 01/30/19 04:17 Intake & Output 01/29/19 01/30/19 01/30/19 17:59 06:59 18:59 Intake Total Balance Intake: Oral Other: Voiding Method # Voids 1 # Bowel Movements 1 - Exam Physical Exam: Revealed a 78-year-old, frail looking, in no distress. Head: Atraumatic, normocephalic. HEENT:[Neck is supple.] [No neck masses.] [No thyromegaly.] [No JVD.]PERRLA, EOMI, no icterus. Chest: [diminished breath sound bilaterally no crackles or rhonchi or wheezes..] Cardiac Exam: [Normal S1 and S2, no S3 gallop, no murmur.] Abdomen: [Soft, nontender, no megaly, no rebound, no guarding, normal bowel sounds.] Extremities: [No clubbing, no edema, no cyanosis.] Neurological Exam: [No focal neurologic deficit.] psychiatric: Normal mood affect and mental status examination. Skin: No rashes. Lymphatics: No lymphadenopathy. - Labs CBC & Chem 7: 01/30/19 07:21 01/30/19 07:21 Labs: Abnormal Lab Results - Last 24 Hours (Table) 01/29/19 01/29/19 01/30/19 Range/Units 17:02 20:31 06:55 WBC (3.8-10.6) k/uL Plt Count (150-450) k/uL Neutrophils # (1.3-7.7) k/uL Lymphocytes # (1.0-4.8) k/uL Chloride (98-107) mmol/L Carbon Dioxide (22-30) mmol/L BUN (7-17) mg/dL Creatinine (0.52-1.04) mg/dL Glucose (74-99) mg/dL POC Glucose (mg/dL) 148 H 209 H 129 H (75-99) mg/dL ALT (9-52) U/L Total Protein (6.3-8.2) g/dL Albumin (3.5-5.0) g/dL 01/30/19 01/30/19 01/30/19 Range/Units 07:21 07:21 12:13 WBC 13.4 H (3.8-10.6) k/uL Plt Count 480 H (150-450) k/uL Neutrophils # 12.4 H (1.3-7.7) k/uL Lymphocytes # 0.5 L (1.0-4.8) k/uL Chloride 95 L (98-107) mmol/L Carbon Dioxide 36 H (22-30) mmol/L BUN 32 H (7-17) mg/dL Creatinine 0.47 L (0.52-1.04) mg/dL Glucose 116 H (74-99) mg/dL POC Glucose (mg/dL) 157 H (75-99) mg/dL ALT 91 H (9-52) U/L Total Protein 5.6 L (6.3-8.2) g/dL Albumin 3.1 L (3.5-5.0) g/dL Microbiology - Last 24 Hours (Table) 01/27/19 10:32 Blood Culture - Preliminary Blood No Growth after 72 hours Assessment and Plan Assessment: Impression: 1 acute hypoxic respiratory failure secondary to acute exacerbation of COPD, and strongly suspect community-acquired right lower lobe pneumonia. Significant improvement noted on the chest x-ray from today. 2 acute exacerbation of COPD, improving. 3 acute right lower lobe pneumonia, community-acquired. Almost resolved based on the chest x-ray today 4 nicotine dependence syndrome, counseled regarding smoking cessation. Patient stated that she quit smoking 11 days ago. 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 Patient uses a walker. 6 benign essential hypertension 7 degenerative joint disease 8 history of hyperlipidemia 9 hypothyroidism, on Synthroid replacement therapy. 10 elevated liver enzymes, being evaluated by the admitting physician. Ultrasound report was noted. Recommendation: continue present supportive care measures, bronchodilators, anti biotics, steroids, GI and DVT prophylaxis, patient is back on her usual meds as listed for her multiple medical problems, consider discharge planning, patient could be discharged home on Zithromax for 5 more days and follow-up on outpatient basis Time with Patient: Less than 30
--- NOTE | 2019-01-30 15:43 | P.PN ---
Subjective Progress Note Date: 01/30/19 This is a 78-year-old female patient presents to the ER with complaints of shortness of breath, poor appetite and weakness. Patient states that symptoms started last Thursday. Patient reports that symptoms have progressively gotten worse. Patient reports she's had productive cough. Patient denies any fevers. Patient denies nausea vomiting or diarrhea. Patient has past medical history of depression, COPD, CVA with left-sided residual weakness, hypertension, hypothyroidism, heart murmur in which she follows with cardiology services every 6 months, diverticulitis and arthritis. Patient also reports she was previously smoked for quitting 9 days ago. Patient states she lives with daughter and s on-in-law. Patient denies home oxygen use. Chest x-ray completed in ER showing chronic changes without acute pulmonary process. EKG completed showing normal sinus rhythm, possible left atrial enlargement, left axis deviation. Influenza swab ordered. Sputum culture ordered. Patient started on Solu-Medrol 60 mg IV every 6 hours. Patient also started on azithromycin and Rocephin. Dr. Esquivel has been consulted for pulmonary services. At this time patient denies chest pain. Patient does complain of shortness of breath with activity. Patient is having productive cough. Patient denies nausea vomiting or diarrhea. Patient denies any urinary burning or frequency on 01/26/2019 patient currently resting comfortably in wheelchair post chest x- ray. Patient states some improvement with shortness of breath. At this time patient remains on IV steroids and IV antibiotics. Pulmonary services have been consulted. Influenza is negative. Patient remained short of breath with exertion. Patient denies chest pain. Patient denies nausea vomiting or diarrhea On 01/27/2019 patient is alert and oriented resting in bed. Patient reports she had sleeping last night due to discomfort. Requesting melatonin be ordered. Patient does report some improvement with shortness of breath. Being followed by pulmonary services. Remains on IV steroids and DuoNeb breathing treatments. Patient's white blood cell increasing to 28.5. Patient is on IV steroids. Will order urinary analysis and blood culture. Patient has been afebrile. Patient's liver enzymes elevated. Staring currently on hold. At this time patient denies chest pain. Patient denies nausea vomiting or diarrhea. Patient denies any urinary burning or frequency. On 01/28/2019 patient is alert and oriented to 3 resting comfortably in bed. Patient reports significant improvement. Patient also reports that she got a go od night sleep at that additional melatonin. Patient maintained on IV steroids at this time. Liver ultrasound completed. At this time patient denies chest pain or shortness breath. Patient denies nausea vomiting or diarrhea. Patient will denies any urinary burning or frequency. On 01/29/2019 patient was seen and examined on the medical floor she is alert and oriented 3 in no apparent distress she is still complaining of shortness of breath with activity and complaining of cough otherwise no complaints there is no fever or chills no headache or dizziness no chest pain nausea or vomiting no abdominal pain no diarrhea and no urinary symptoms. On 01/30/2019 patient is alert and oriented 3 stated that she is improving shortness of breath and cough are better today she has been able to ambulate a few steps without severe shortness of breath otherwise she denies any complaints plan is for discharge tomorrow patient will need home oxygen upon discharge Objective - Vital Signs Vital signs: Vital Signs Temp 98.0 F 01/30/19 13:30 Pulse 96 01/30/19 15:05 Resp 16 01/30/19 15:05 BP 108/55 01/30/19 13:30 Pulse Ox 90 L 01/30/19 13:30 Intake & Output 01/29/19 01/30/19 01/30/19 17:59 06:59 18:59 Intake Total Balance Intake: Oral Other: Voiding Method Toilet # Voids 3 # Bowel Movements 1 - Exam Head normocephalic and atraumatic Neck supple no JVD no goiter Lungs right lower lobe Ronchi with expiratory wheezing throughout Heart regular rate and rhythm S1-S2, no rub or gallop Abdomen is soft nontender nondistended positive bowel sounds no hepatosplenomegaly Extremities no edema no cyanosis or clubbing Neuro alert and orientated to 3 - Labs CBC & Chem 7: 01/30/19 07:21 01/30/19 07:21 Labs: Abnormal Lab Results - Last 24 Hours (Table) 01/29/19 01/29/19 01/30/19 Range/Units 17:02 20:31 06:55 WBC (3.8-10.6) k/uL Plt Count (150-450) k/uL Neutrophils # (1.3-7.7) k/uL Lymphocytes # (1.0-4.8) k/uL Chloride (98-107) mmol/L Carbon Dioxide (22-30) mmol/L BUN (7-17) mg/dL Creatinine (0.52-1.04) mg/dL Glucose (74-99) mg/dL POC Glucose (mg/dL) 148 H 209 H 129 H (75-99) mg/dL ALT (9-52) U/L Total Protein (6.3-8.2) g/dL Albumin (3.5-5.0) g/dL 01/30/19 01/30/19 01/30/19 Range/Units 07:21 07:21 12:13 WBC 13.4 H (3.8-10.6) k/uL Plt Count 480 H (150-450) k/uL Neutrophils # 12.4 H (1.3-7.7) k/uL Lymphocytes # 0.5 L (1.0-4.8) k/uL Chloride 95 L (98-107) mmol/L Carbon Dioxide 36 H (22-30) mmol/L BUN 32 H (7-17) mg/dL Creatinine 0.47 L (0.52-1.04) mg/dL Glucose 116 H (74-99) mg/dL POC Glucose (mg/dL) 157 H (75-99) mg/dL ALT 91 H (9-52) U/L Total Protein 5.6 L (6.3-8.2) g/dL Albumin 3.1 L (3.5-5.0) g/dL Microbiology - Last 24 Hours (Table) 01/27/19 10:32 Blood Culture - Preliminary Blood No Growth after 72 hours Assessment and Plan Plan: 1. Acute hypoxic respiratory failure secondary to acute exacerbation of COPD and possible right lower lobe pneumonia. Initial chest x-ray completed showing chronic changes without acute pulmonary process. Patient started on Solu-Medrol along with IV antibiotics. Dr. Esquivel following for pulmonary care. Two-view chest x-ray completed showing clinical correlation recommended for mild right lower lobe pneumonia. Patient remains on Rocephin and Zithromax. Sputum culture pending 2. Acute exacerbation of COPD. Patient currently on IV Solu-Medrol. Pulmonary service is following 3. Acute right lower lobe pneumonia. Patient currently on Zithromax and Rocephin. followed by pulmonary services 4. Nicotine dependence. Patient reports days ago. Patient denies nicotine patch time. Patient educated greater than 3 minutes on smoking patient 5. History of CVA in 2017 with left-sided residual. Patient maintained on Plavix and aspirin 6. Hypothyroidism. Synthroid resumed 7. History of depression 8. History of diverticulitis 9. Essential hypertension. Home meds resumed 10. Degenerative joint disease 11. Hyperlipidemia. Statin currently on hold due to elevated liver enzymes will continue to monitor 12. Elevated liver enzymes. Lipitor on hold. AST 88 and ALT 100. Liver ultrasound completed showing a mildly heterogeneous echotexture of the hepatic parenchyma seen that is nonspecific and could relate to mild hepatic steatosis, hepatitis or other hepatocellular disease. Additionally there is hyperechoic 1.4 cm hepatic lesion. In a patient with known history of underlying hepatocellular disease is most commonly relates to hemangioma however given the heterogeneous hepatic echotexture [address] abdomen or MRI recommended for further characterization 13. Essential Tremors. Patient reports she follows with Dr. Canales for neurology. Patient's home medication of Primidone ordered. 14. Hyperkalemia. Potassium 5.2. Kayexalate will be given. Recheck at 1 PM today DVT prophylaxis Lovenox. GI prophylaxis Protonix Physical therapy consulted Patient currently does not wear home O2. Patient will likely need upon discharge.
[2019-01-30 16:38] LABS: Glucose,Whole Blood 148 mg/dL (75-99)
[2019-01-30 20:12] LABS: Glucose,Whole Blood 206 mg/dL (75-99)
[2019-01-30] MEDS: MELATONIN 1 MG TAB PO SCH (20:19)
[2019-01-31] MEDS: methylPREDNISolone SOD SUCCI 125 MG/2 ML VIAL IV SCH ×2 (05:28→12:12)
[2019-01-31] MEDS: LEVOTHYROXINE 50 MCG TAB PO SCH (05:28)
[2019-01-31] MEDS: SYMBICORT 160-4.5 MCG INHALER INHALATION SCH (06:56)
[2019-01-31] MEDS: IPRATROPIUM-ALBUTEROL 3 ML NEB INHALATION SCH ×2 (06:56→11:17)
[2019-01-31 07:01] LABS: Glucose,Whole Blood 104 mg/dL (75-99)
[2019-01-31] MEDS: INSULIN ASPART (NovoLOG) 100 UNIT/ML VIAL SQ SCH ×2 (07:54→12:12)
[2019-01-31 08:13] LABS: Basophils % (A) 0 %; Eosinophils # (A) 0.1 k/uL (0-0.7); Eosinophils % (A) 0 %; HCT 41.3 % (34.0-46.0); HGB 13.5 gm/dL (11.4-16.0); Lymphocytes # (A) 0.6 k/uL (1.0-4.8); Lymphocytes % (A) 4 %; MCH 31.4 pg (25.0-35.0); MCHC 32.5 g/dL (31.0-37.0); MCV 96.4 fL (80.0-100.0); Mean Platelet Volume 7.2; Monocytes # (A) 0.7 k/uL (0-1.0); Monocytes % (A) 5 %; Neutrophils # (A) 13.3 k/uL (1.3-7.7); Neutrophils % (A) 90 %; Platelet Count 480 k/uL (150-450); RBC 4.29 m/uL (3.80-5.40); RDW 13.3 % (11.5-15.5); WBC 14.9 k/uL (3.8-10.6)
[2019-01-31] MEDS: HYDROcodone/APAP 10-325MG 1 EACH TAB PO PRN (08:26)
[2019-01-31] MEDS: ASPIRIN 325 MG TAB PO SCH (08:29)
[2019-01-31] MEDS: AZITHROMYCIN 500 MG TAB PO SCH (08:29)
[2019-01-31] MEDS: ENOXAPARIN 40 MG/0.4 ML SYRINGE SQ SCH (08:29)
[2019-01-31] MEDS: PANTOPRAZOLE 40 MG TABLET PO SCH (08:29)
[2019-01-31] MEDS: CLOPIDOGREL 75 MG TAB PO SCH (08:29)
[2019-01-31] MEDS: PRIMIDONE 50 MG TAB PO SCH (08:29)
[2019-01-31] MEDS: HYDROCHLOROTHIAZIDE 25 MG TAB PO SCH (08:29)
[2019-01-31 08:45] LABS: ALT 96 U/L (9-52); AST 33 U/L (14-36); Albumin 3.2 g/dL (3.5-5.0); Alkaline Phosphatase 77 U/L (38-126); Anion Gap 6 mmol/L; Blood Urea Nitrogen 33 mg/dL (7-17); Calcium 9.6 mg/dL (8.4-10.2); Carbon Dioxide 33 mmol/L (22-30); Chloride 97 mmol/L (98-107); Glucose 92 mg/dL (74-99); Potassium 4.9 mmol/L (3.5-5.1); Sodium 136 mmol/L (137-145); Total Bilirubin 0.4 mg/dL (0.2-1.3); Total Protein 5.7 g/dL (6.3-8.2)
--- NOTE | 2019-01-31 10:00 | P.DS ---
Providers Date of admission: 01/25/19 15:29 Expected date of discharge: 01/31/19 Attending physician: Kyleigh Garcia Consults: 01/25/19 15:40 Consult Physician Routine Consulting Provider: Jj Esquivel Consult Reason/Comments: COPD with possible pneumonia Do you want consulting provider notified?: Yes Primary care physician: Kyleigh Garcia [facility] Course: Discharge diagnosis 1. Acute hypoxic respiratory failure secondary to acute exacerbation of COPD and possible right lower lobe pneumonia. Initial chest x-ray completed showing chronic changes without acute pulmonary process. Patient started on Solu-Medrol along with IV antibiotics. Dr. Esquivel following for pulmonary care. Two-view chest x-ray completed showing clinical correlation recommended for mild right lower lobe pneumonia. Patient remains on Rocephin and Zithromax. Blood culture negative. Sputum culture negative. Patient will be DC'd on Ceftin for 3 more days 2. Acute exacerbation of COPD. Patient currently on IV Solu-Medrol. Pulmonary service is following. Patient has ALLERGY to prednisone. Patient will follow- up PCP in office on Thursday 3. Acute right lower lobe pneumonia. Patient currently on Zithromax and Rocephin. followed by pulmonary services. Pulmonary services have cleared patient for discharge. Patient will be DC'd on Ceftin for 3 more days 4. Nicotine dependence. Patient reportsshe quite 11 days ago. Patient denies nicotine patch time. Patient educated greater than 3 minutes on smoking patient 5. History of CVA in 2017 with left-sided residual. Patient maintained on Plavix and aspirin 6. Hypothyroidism. Synthroid resumed 7. History of depression 8. History of diverticulitis 9. Essential hypertension. Home meds resumed 10. Degenerative joint disease 11. Hyperlipidemia. Statin currently on hold due to elevated liver enzymes will continue to monitor 12. Elevated liver enzymes. Lipitor on hold. AST 88 and ALT 100. Liver ultrasound completed showing a mildly heterogeneous echotexture of the hepatic parenchyma seen that is nonspecific and could relate to mild hepatic steatosis, hepatitis or other hepatocellular disease. Additionally there is hyperechoic 1.4 cm hepatic lesion. In a patient with known history of underlying hepatocellular disease is most commonly relates to hemangioma however given the heterogeneous hepatic echotexture [address] abdomen or MRI recommended for further characterization. She to follow-up outpatient for MRI per PCP. This was discussed with patient and Dr. Garcia 13. Essential Tremors. Patient reports she follows with Dr. Canales for neurology. Patient's home medication of Primidone ordered. I performed an examination of the patient and discussed their management with the Nurse Practitioner. I have reviewed the Nurse Practitioner's notes and agree with the documented findings and plan of care 14. Hyperkalemia. Potassium 5.2. Kayexalate will be given. Repeat potassium 4.9 Hospital course This is a 78-year-old female patient presents to the ER with complaints of shortness of breath, poor appetite and weakness. Patient states that symptoms started last Thursday. Patient reports that symptoms have progressively gotten worse. Patient reports she's had productive cough. Patient denies any fevers. Patient denies nausea vomiting or diarrhea. Patient has past medical history of depression, COPD, CVA with left-sided residual weakness, hypertension, hypothyroidism, heart murmur in which she follows with cardiology services every 6 months, diverticulitis and arthritis. Patient also reports she was previously smoked for quitting 9 days ago. Patient states she lives with daughter and son-in-law. Patient denies home oxygen use. Chest x-ray completed in ER showing chronic changes without acute pulmonary process. EKG completed showing normal sinus rhythm, possible left atrial enlargement, left axis deviation. Influenza swab ordered. Sputum culture ordered. Patient started on Solu-Medrol 60 mg IV every 6 hours. Patient also started on azithromycin and Rocephin. Dr. Esquivel has been consulted for pulmonary services. At this time patient denies chest pain. Patient does complain of shortness of breath with activity. Patient is having productive cough. Patient denies nausea vomiting or diarrhea. Patient denies any urinary burning or frequency on 01/26/2019 patient currently resting comfortably in wheelchair post chest x- ray. Patient states some improvement with shortness of breath. At this time patient remains on IV steroids and IV antibiotics. Pulmonary services have been consulted. Influenza is negative. Patient remained short of breath with exertion. Patient denies chest pain. Patient denies nausea vomiting or diarrhea On 01/27/2019 patient is alert and oriented resting in bed. Patient reports she had sleeping last night due to discomfort. Requesting melatonin be ordered. Patient does report some improvement with shortness of breath. Being followed by pulmonary services. Remains on IV steroids and DuoNeb breathing treatments. Patient's white blood cell increasing to 28.5. Patient is on IV steroids. Will order urinary analysis and blood culture. Patient has been afebrile. Patient's liver enzymes elevated. Staring currently on hold. At this time patient denies chest pain. Patient denies nausea vomiting or diarrhea. Patient denies any urinary burning or frequency. On 01/28/2019 patient is alert and oriented to 3 resting comfortably in bed. P atient reports significant improvement. Patient also reports that she got a good night sleep at that additional melatonin. Patient maintained on IV steroids at this time. Liver ultrasound completed. At this time patient denies chest pain or shortness breath. Patient denies nausea vomiting or diarrhea. Patient will denies any urinary burning or frequency. On 01/29/2019 patient was seen and examined on the medical floor she is alert and oriented 3 in no apparent distress she is still complaining of shortness of breath with activity and complaining of cough otherwise no complaints there is no fever or chills no headache or dizziness no chest pain nausea or vomiting no abdominal pain no diarrhea and no urinary symptoms. On 01/30/2019 patient is alert and oriented 3 stated that she is improving shortness of breath and cough are better today she has been able to ambulate a few steps without severe shortness of breath otherwise she denies any complaints plan is for discharge tomorrow patient will need home oxygen upon discharge On 01/31/2019 patient is alert and oriented 3. Patient states the shortness of breath. Patient currently on 2 L which she will be prescribed for home. Patient also be discharged with Ceftin for 3 more days. Patient has penicillin ALLERGY listed. Patient will be advised to follow-up with PCP in office in 2 days for further management. At this time patient denies chest pain or shortness of breath. Patient denies nausea vomiting or diarrhea. Patient denies any urinary burning or frequency Liver ultrasound results reviewed. Recommending outpatient MRI for further follow-up. Discussed with patient and PCP. I performed an examination of the patient and discussed their management with the Nurse Practitioner. I have reviewed the Nurse Practitioner's notes and agree with the documented findings and plan of care Patient Condition at Discharge: Stable Plan - Discharge Summary New Discharge Prescriptions: New Cefuroxime Axetil [Ceftin] 500 mg PO BID 3 Days #6 tab Continue HYDROcodone/APAP 10-325MG [[place] 10-325] 1 tab PO Q8H PRN PRN Reason: Pain Clopidogrel Bisulfate [Plavix] 75 mg PO DAILY Levothyroxine Sodium [Synthroid] 50 mcg PO DAILY Aspirin 325 mg PO DAILY tab Baclofen [Lioresal] 20 mg PO DAILY PRN tab PRN Reason: Muscle Spasm Hydrochlorothiazide 25 mg PO DAILY Primidone [Mysoline] 50 mg PO DAILY Discontinued Atorvastatin [Lipitor] 20 mg PO HS #0 tab Discharge Medication List Clopidogrel Bisulfate [Plavix] 75 mg PO DAILY 01/29/15 [History] HYDROcodone/APAP 10-325MG [[place] 10-325] 1 tab PO Q8H PRN 01/29/15 [History] Levothyroxine Sodium [Synthroid] 50 mcg PO DAILY 04/03/16 [History] Aspirin 325 mg PO DAILY tab 09/29/17 [Rx] Baclofen [Lioresal] 20 mg PO DAILY PRN tab 09/29/17 [Rx] Hydrochlorothiazide 25 mg PO DAILY 08/10/18 [History] Primidone [Mysoline] 50 mg PO DAILY 01/26/19 [History] Cefuroxime Axetil [Ceftin] 500 mg PO BID 3 Days #6 tab 01/31/19 [Rx] Follow up Appointment(s)/Referral(s): Kyleigh Garcia MD [Primary Care Provider] - 1-2 days Vikash Culver MD [STAFF PHYSICIAN] - 1 Week Activity/Diet/Wound Care/Special Instructions: Activity as tolerated Diet regular Patient will require home O2 2 L
[2019-01-31 11:12] LABS: Glucose,Whole Blood 149 mg/dL (75-99)
[2019-01-31 11:48] VITALS: BP 98/53; PULSE 75; RESP 17; TEMP 98.3
== END 2019-01-31 14:00 | disposition home or self-care (01) | DRG 193 ==
LOC: EC 12:35 → 3NMEDONC 15:29
PROVIDERS: ADMIT Internal Medicine; ATTEND Internal Medicine
DX: J18.1 Lobar pneumonia, unspecified organism (principal); J96.01 Acute respiratory failure with hypoxia; R64 Cachexia; R04.2 Hemoptysis; I69.354 Hemiplegia and hemiparesis following cerebral infarction affecting left non-dominant side; E44.1 Mild protein-calorie malnutrition; J44.1 Chronic obstructive pulmonary disease with (acute) exacerbation; J44.0 Chronic obstructive pulmonary disease with (acute) lower respiratory infection; Z68.1 Body mass index [BMI] 19.9 or less, adult; E87.5 Hyperkalemia; K76.0 Fatty (change of) liver, not elsewhere classified; I10 Essential (primary) hypertension; M19.90 Unspecified osteoarthritis, unspecified site; F32.9 Major depressive disorder, single episode, unspecified; F17.200 Nicotine dependence, unspecified, uncomplicated; E03.9 Hypothyroidism, unspecified; E78.5 Hyperlipidemia, unspecified; G25.0 Essential tremor; D18.00 Hemangioma unspecified site; Z71.3 Dietary counseling and surveillance; Z71.6 Tobacco abuse counseling; Z79.02 Long term (current) use of antithrombotics/antiplatelets; Z79.890 Hormone replacement therapy; Z79.82 Long term (current) use of aspirin; Z79.899 Other long term (current) drug therapy; Z90.49 Acquired absence of other specified parts of digestive tract; Z87.19 Personal history of other diseases of the digestive system; Z88.8 Allergy status to other drugs, medicaments and biological substances; Z88.0 Allergy status to penicillin
CPT/HCPCS: 36415; 71046; 76705; 80053; 81003; 83605; 84132; 84484; 85025; 85610; 85730; 87040; 87070; 87205; 87502; 93005; 94640; 94760; 96365; 96375; 99291

== ENCOUNTER 2019-07-29 11:06 | Inpatient (IN) | payer MEDICARE ==
[2019-07-29] MEDS ORDERED: ALBUTEROL NEBULIZED 2.5 MG/3 ML INHALATION STA (11:36)
[2019-07-29] MEDS ORDERED: methylPREDNISolone SOD SUCCI 125 MG/2 ML VIAL IV STA (11:36)
[2019-07-29] MEDS ORDERED: SODIUM CHLORIDE 0.9% 500 ML 500 ML IV STA (11:36)
[2019-07-29] MEDS ORDERED: IPRATROPIUM 0.5 MG/2.5 ML NEBU INHALATION STA (11:36)
--- NOTE | 2019-07-29 11:44 | ED ---
General Adult HPI - General Chief complaint: Shortness of Breath Stated complaint: SOB Time Seen by Provider: 07/29/19 11:10 Source: patient, RN notes reviewed Mode of arrival: wheelchair Limitations: no limitations - History of Present Illness Initial comments: This is a 78-year-old female with past mental history significant for COPD and pneumonia approximate month ago. Patient comes in today stating last 4 days or difficulty breathing is gotten progressively worse as has a cough. Patient states the cough is producing quite a bit of sputum as well. Patient denies any fever chills per patient denies any chest pain or palpitations. Patient denies any abdominal pain patient denies nausea vomiting diarrhea per patient denies any swelling to the legs or calf tenderness. Patient denies any lightheadedness or dizziness. Patient denies any headache or numbness or weakness. - Related Data Home Medications Medication Instructions Recorded Confirmed Clopidogrel Bisulfate [Plavix] 75 mg PO HS 01/29/15 07/29/19 HYDROcodone/APAP 10-325MG [[place] 1 tab PO HS 01/29/15 07/29/19 10-325] Levothyroxine Sodium [Synthroid] 50 mcg PO DAILY 04/03/16 07/29/19 Hydrochlorothiazide 12.5 mg PO DAILY 08/10/18 07/29/19 Primidone [Mysoline] 50 mg PO DAILY 01/26/19 07/29/19 Baclofen [Lioresal] 10 mg PO BID 07/29/19 07/29/19 Previous Rx's Medication Instructions Recorded Aspirin 325 mg PO DAILY tab 09/29/17 Allergies Allergy/AdvReac Type Severity Reaction Status Date / Time cimetidine [From Tagamet] Allergy Rash/Hives Verified 07/29/19 11:43 cimetidine HCl [From Tagamet] Allergy Rash/Hives Verified 07/29/19 11:43 prednisone Allergy Swelling Verified 07/29/19 11:43 Review of Systems ROS Statement: Those systems with pertinent positive or pertinent negative responses have been documented in the HPI. ROS Other: All systems not noted in ROS Statement are negative. Past Medical History Past Medical History: COPD, CVA/TIA, Hypertension, Thyroid Disorder Additional Past Medical History / Comment(s): heart murmur, diverticulitis, ARTHRITIS, History of Any Multi-Drug Resistant Organisms: None Reported Past Surgical History: Appendectomy Additional Past Surgical History / Comment(s): nasal septum Past Anesthesia/Blood Transfusion Reactions: No Reported Reaction Past Psychological History: Depression Smoking Status: Current some day smoker Past Alcohol Use History: None Reported Past Drug Use History: None Reported - Past Family History Mother Family Medical History: No Reported History Father Family Medical History: Unable to Obtain General Exam - General Exam Comments Initial Comments: GENERAL: Patient is well-developed and well-nourished. Patient is nontoxic and well- hydrated and is in moderate distress. ENT: Neck is soft and supple. No significant lymphadenopathy is noted. Oropharynx is clear. Moist mucous membranes. Neck has full range of motion without eliciting any pain. EYES: The sclera were anicteric and conjunctiva were pink and moist. Extraocular movements were intact and pupils were equal round and reactive to light. Eyelids were unremarkable. PULMONARY: Unlabored respirations. Good breath sounds bilaterally. No audible rales rhonchi or wheezing was noted. CARDIOVASCULAR: There is a regular rate and rhythm without any murmurs gallops or rubs. ABDOMEN: Soft and nontender with normal bowel sounds. SKIN: Skin is clear with no lesions or rashes and otherwise unremarkable. NEUROLOGIC: Patient is alert and oriented x3. Cranial nerves II through XII are grossly intact. Motor and sensory are also intact. Normal speech, volume and content. Symmetrical smile. MUSCULOSKELETAL: Normal extremities with adequate strength and full range of motion. LYMPHATICS: No significant lymphadenopathy is noted PSYCHIATRIC: Normal psychiatric evaluation. Limitations: no limitations Course Vital Signs 07/29/19 07/29/19 07/29/19 11:15 12:13 12:23 Temperature 97.8 F Pulse Rate 78 131 H 71 Respiratory 24 20 20 Rate Blood Pressure 125/77 O2 Sat by Pulse 87 L Oximetry 07/29/19 07/29/19 12:39 12:52 Temperature Pulse Rate 81 84 Respiratory 18 18 Rate Blood Pressure O2 Sat by Pulse Oximetry Medical Decision Making - Medical Decision Making EKG shows normal sinus rhythm at 92 bpm DC interval 150 QRS is 84 QT interval 356 QTC is 440. EKG shows no ST segment elevation or depression or T wave abnormalities are noted. Chest x-ray shows no COPD. Patient received a breathing treatment 3 in the emergency room as well as steroids. I spoke with Dr. Garcia he agreed to admit the patient admitted the patient I consulted pulmonary - Lab Data Result diagrams: 07/29/19 11:50 07/29/19 11:50 Lab Results 07/29/19 07/29/19 07/29/19 Range/Units 11:50 11:50 11:50 WBC 7.4 (3.8-10.6) k/uL RBC 4.83 (3.80-5.40) m/uL Hgb 15.5 (11.4-16.0) gm/dL Hct 46.8 H (34.0-46.0) % MCV 96.8 (80.0-100.0) fL MCH 32.0 (25.0-35.0) pg MCHC 33.1 (31.0-37.0) g/dL RDW 14.7 (11.5-15.5) % Plt Count 276 (150-450) k/uL Neutrophils % (Manual) 36 % Lymphocytes % (Manual) 30 % Monocytes % (Manual) 9 % Eosinophils % (Manual) 24 % Basophils % (Manual) 1 % Neutrophils # (Manual) 2.66 (1.3-7.7) k/uL Lymphocytes # (Manual) 2.22 (1.0-4.8) k/uL Monocytes # (Manual) 0.67 (0-1.0) k/uL Eosinophils # (Manual) 1.78 H (0-0.7) k/uL Basophils # (Manual) 0.07 (0-0.2) k/uL Nucleated RBCs 0 (0-0) /100 WBC Manual Slide Review Performed RBC Morphology Normal PT 10.1 (9.0-12.0) sec INR 0.9 (<1.2) APTT 24.8 (22.0-30.0) sec Sodium 139 (137-145) mmol/L Potassium 4.2 (3.5-5.1) mmol/L Chloride 102 (98-107) mmol/L Carbon Dioxide 29 (22-30) mmol/L Anion Gap 8 mmol/L BUN 19 H (7-17) mg/dL Creatinine 0.62 (0.52-1.04) mg/dL Est GFR (CKD-EPI)AfAm >90 (>60 ml/min/1.73 sqM) Est GFR (CKD-EPI)NonAf 86 (>60 ml/min/1.73 sqM) Glucose 101 H (74-99) mg/dL Plasma Lactic Acid Arron (0.7-2.0) mmol/L Calcium 10.0 (8.4-10.2) mg/dL Magnesium 2.1 (1.6-2.3) mg/dL Total Bilirubin 0.6 (0.2-1.3) mg/dL AST 33 (14-36) U/L ALT 26 (9-52) U/L Alkaline Phosphatase 78 (38-126) U/L Troponin I (0.000-0.034) ng/mL NT-Pro-B Natriuret Pep pg/mL Total Protein 7.1 (6.3-8.2) g/dL Albumin 4.4 (3.5-5.0) g/dL 07/29/19 07/29/19 07/29/19 Range/Units 11:50 11:50 11:50 WBC (3.8-10.6) k/uL RBC (3.80-5.40) m/uL Hgb (11.4-16.0) gm/dL Hct (34.0-46.0) % MCV (80.0-100.0) fL MCH (25.0-35.0) pg MCHC (31.0-37.0) g/dL RDW (11.5-15.5) % Plt Count (150-450) k/uL Neutrophils % (Manual) % Lymphocytes % (Manual) % Monocytes % (Manual) % Eosinophils % (Manual) % Basophils % (Manual) % Neutrophils # (Manual) (1.3-7.7) k/uL Lymphocytes # (Manual) (1.0-4.8) k/uL Monocytes # (Manual) (0-1.0) k/uL Eosinophils # (Manual) (0-0.7) k/uL Basophils # (Manual) (0-0.2) k/uL Nucleated RBCs (0-0) /100 WBC Manual Slide Review RBC Morphology PT (9.0-12.0) sec INR (<1.2) APTT (22.0-30.0) sec Sodium (137-145) mmol/L Potassium (3.5-5.1) mmol/L Chloride (98-107) mmol/L Carbon Dioxide (22-30) mmol/L Anion Gap mmol/L BUN (7-17) mg/dL Creatinine (0.52-1.04) mg/dL Est GFR (CKD-EPI)AfAm (>60 ml/min/1.73 sqM) Est GFR (CKD-EPI)NonAf (>60 ml/min/1.73 sqM) Glucose (74-99) mg/dL Plasma Lactic Acid Arron 1.2 (0.7-2.0) mmol/L Calcium (8.4-10.2) mg/dL Magnesium (1.6-2.3) mg/dL Total Bilirubin (0.2-1.3) mg/dL AST (14-36) U/L ALT (9-52) U/L Alkaline Phosphatase (38-126) U/L Troponin I <0.012 (0.000-0.034) ng/mL NT-Pro-B Natriuret Pep 72 pg/mL Total Protein (6.3-8.2) g/dL Albumin (3.5-5.0) g/dL Critical Care Time Critical Care Time: Yes Total Critical Care Time: 35 Disposition Clinical Impression: Acute exacerbation of chronic obstructive airways disease Disposition: ADMITTED IP TO THIS HOSP Referrals: Kyleigh Garcia MD [Primary Care Provider] - 1-2 days Time of Disposition: 13:25
[2019-07-29 12:25] LABS: HCT 46.8 % (34.0-46.0); HGB 15.5 gm/dL (11.4-16.0); MCHC 33.1 g/dL (31.0-37.0); MCV 96.8 fL (80.0-100.0); Mean Platelet Volume 7.3; Platelet Count 276 k/uL (150-450); RBC 4.83 m/uL (3.80-5.40); RDW 14.7 % (11.5-15.5); WBC 7.4 k/uL (3.8-10.6)
--- NOTE | 2019-07-29 12:27 | XR ---
EXAMINATION TYPE: XR chest 2V DATE OF EXAM: 07/29/2019 COMPARISON: 01/30/2019 HISTORY: Difficulty breathing. COPD. TECHNIQUE: Frontal and lateral views of the chest are obtained. FINDINGS: There is advanced COPD with pulmonary hyperinflation, biapical lucency, increased retroste rnal airspace and anterior posterior diameter chest, and flattening of the diaphragms on the lateral view. Mediastinum is shifted toward the right secondary to patient rotation and artificially widened. Degenerative changes of the spine and atheromatous changes of the thoracic aorta are noted. Diffuse osseous demineralization is also seen. IMPRESSION: Findings of advanced COPD with similar right apical scarring. Mediastinum is suboptimall y evaluated given patient rotation.
[2019-07-29 12:30] LABS: INR 0.9 (<1.2); Partial Thromboplastin Time 24.8 sec (22.0-30.0); Prothrombin Time 10.1 sec (9.0-12.0)
[2019-07-29 12:54] LABS: ALT 26 U/L (9-52); AST 33 U/L (14-36); African American GFR (CKD) >90 (>60 ml/min/1.73 sqM); Albumin 4.4 g/dL (3.5-5.0); Alkaline Phosphatase 78 U/L (38-126); Blood Urea Nitrogen 19 mg/dL (7-17); Carbon Dioxide 29 mmol/L (22-30); Glucose 101 mg/dL (74-99); Magnesium 2.1 mg/dL (1.6-2.3); Non-African American GFR(CKD) 86 (>60 ml/min/1.73 sqM); Total Bilirubin 0.6 mg/dL (0.2-1.3); Total Protein 7.1 g/dL (6.3-8.2)
[2019-07-29 12:59] LABS: Basophils # (M) 0.07 k/uL (0-0.2); Eosinophils # (M) 1.78 k/uL (0-0.7); Lymphocytes # (M) 2.22 k/uL (1.0-4.8); Monocytes # (M) 0.67 k/uL (0-1.0); Neutrophils # (M) 2.66 k/uL (1.3-7.7); Neutrophils % (M) 36 %; Nucleated Red Blood Cells 0 /100 WBC (0-0); Total Cells Counted 100
[2019-07-29 13:11] LABS: Anion Gap 8 mmol/L; Chloride 102 mmol/L (98-107); Potassium 4.2 mmol/L (3.5-5.1); Sodium 139 mmol/L (137-145)
[2019-07-29] MEDS ORDERED: IPRATROPIUM-ALBUTEROL 3 ML NEB INHALATION PRN ×2 (13:25→14:33)
--- NOTE | 2019-07-29 14:55 | P.HPIM ---
History of Present Illness H&P Date: 07/29/19 This is a 78-year-old female patient who presented with complaints of increased shortness of breath. Patient reports that shortness breath started about 4 days ago and progressively increased with cough. Patient reports that cough is productive. Patient denies any fevers or chest pain. Patient does have past medical history of COPD, pneumonia, CVA, hypertension, hypothyroidism, heart murmur, diverticulitis, arthritis, depression and nicotine dependence. Chest x- ray completed showing findings of advanced COPD with similar right apical scarring. The mediastinum is suboptimally elevated given patient rotation. EKG showing normal sinus rhythm left axis deviation. Troponin negative. BNP 72. At this time patient still complaining of shortness breath cough. Patient started on Solu-Medrol pulmonary services have been consulted. Patient denies chest pain. Denies nausea vomiting diarrhea. Patient denies any urinary burning or frequency. Review of Systems Please refer to HPI otherwise unremarkable Past Medical History Past Medical History: COPD, CVA/TIA, Hypertension, Thyroid Disorder Additional Past Medical History / Comment(s): heart murmur, diverticulitis, ARTHRITIS, History of Any Multi-Drug Resistant Organisms: None Reported Past Surgical History: Appendectomy Additional Past Surgical History / Comment(s): nasal septum Past Anesthesia/Blood Transfusion Reactions: No Reported Reaction Past Psychological History: Depression Smoking Status: Current some day smoker Past Alcohol Use History: None Reported Past Drug Use History: None Reported - Past Family History Mother Family Medical History: No Reported History Father Family Medical History: Unable to Obtain Medications and Allergies Home Medications Medication Instructions Recorded Confirmed Type Clopidogrel Bisulfate [Plavix] 75 mg PO HS 01/29/15 07/29/19 History HYDROcodone/APAP 10-325MG [[place] 1 tab PO HS 01/29/15 07/29/19 History 10-325] Levothyroxine Sodium [Synthroid] 50 mcg PO DAILY 04/03/16 07/29/19 History Aspirin 325 mg PO DAILY tab 09/29/17 07/29/19 Rx Hydrochlorothiazide 12.5 mg PO DAILY 08/10/18 07/29/19 History Primidone [Mysoline] 50 mg PO DAILY 01/26/19 07/29/19 History Baclofen [Lioresal] 10 mg PO BID 07/29/19 07/29/19 History Allergies Allergy/AdvReac Type Severity Reaction Status Date / Time cimetidine [From Tagamet] Allergy Rash/Hives Verified 07/29/19 11:43 cimetidine HCl [From Tagamet] Allergy Rash/Hives Verified 07/29/19 11:43 prednisone Allergy Swelling Verified 07/29/19 11:43 Physical Exam Vitals: Vital Signs Temp Pulse Resp BP Pulse Ox 07/29/19 14:03 88 L 07/29/19 14:00 87 134/75 87 L 07/29/19 13:00 92 20 187/89 94 L 07/29/19 12:52 84 18 07/29/19 12:39 81 18 07/29/19 12:23 71 20 07/29/19 12:13 131 H 20 07/29/19 12:00 131 H 22 135/116 92 L 07/29/19 11:27 129/95 90 L 07/29/19 11:15 97.8 F 78 24 125/77 87 L Intake and Output 07/28/19 07/29/19 07/29/19 22:59 06:59 14:59 Other: Weight 51.256 kg Head normocephalic Neck supple Lungs diminished bilaterally with expiratory wheezing Heart regular rate and rhythm S1-S2, no rub or gallop Abdomen is soft nontender nondistended positive bowel sounds no hepat osplenomegaly Extremities no edema Neuro alert and orientated to 3 Results CBC & Chem 7: 07/29/19 11:50 07/29/19 11:50 Labs: Abnormal Lab Results - Last 24 Hours (Table) 07/29/19 07/29/19 Range/Units 11:50 11:50 Hct 46.8 H (34.0-46.0) % Eosinophils # (Manual) 1.78 H (0-0.7) k/uL BUN 19 H (7-17) mg/dL Glucose 101 H (74-99) mg/dL Assessment and Plan Assessment: 1. Increased shortness breath related to COPD exacerbation. Chest x-ray completed showing findings of advanced COPD with similar right apical scarring. Mediastinum is suboptimally evaluated given patient rotation. Coronary services have been consulted. Sputum culture ordered. Patient started on DuoNeb breathing treatments and solumedrol. Rocephen for antibiotic 2. History of COPD 3. History of pneumonia 4. History of CVA. Maintained on Plavix and aspirin 5. History of essential hypertension 6. History of hypothyroidism. Synthroid resumed 7. History of diverticulitis 8. History of osteoarthritis 9. History of nicotine dependence. Patient educated greater than 3 minutes on smoking cessation. nicotine patch order 10. History of essential tremors. Patient maintained on primidone. follows with Dr. Ross DVT prophylaxis Lovenox. GI prophylaxis Protonix Time with Patient: Greater than 30 (Greater than 60% of the total time spent in counseling and coordination of care. I performed an examination of the patient and discussed their management with the Nurse Practitioner. I have reviewed the Nurse Practitioner's notes and agree with the documented findings and plan of care)
[2019-07-29 15:49] VITALS: BMI 17.6
[2019-07-29] MEDS: IPRATROPIUM-ALBUTEROL 3 ML NEB INHALATION SCH ×2 (16:37→20:03)
[2019-07-29] MEDS: PRIMIDONE 50 MG TAB PO SCH (16:44)
[2019-07-29] MEDS: methylPREDNISolone SOD SUCCI 125 MG/2 ML VIAL IV SCH ×2 (17:00→23:34)
[2019-07-29] MEDS: BUDESONIDE 0.5 MG/2 ML NEBU INHALATION SCH (20:03)
[2019-07-29] MEDS: BACLOFEN 10 MG TAB PO SCH (20:26)
[2019-07-29] MEDS: HYDROcodone/APAP 10-325MG 1 EACH TAB PO SCH (20:26)
[2019-07-29] MEDS: CLOPIDOGREL 75 MG TAB PO SCH (20:26)
[2019-07-30] MEDS: methylPREDNISolone SOD SUCCI 125 MG/2 ML VIAL IV SCH ×3 (05:27→17:25)
[2019-07-30] MEDS: LEVOTHYROXINE 50 MCG TAB PO SCH (05:28)
[2019-07-30 07:03] LABS: Basophils % (A) 0 %; Eosinophils % (A) 0 %; HCT 42.8 % (34.0-46.0); HGB 14.2 gm/dL (11.4-16.0); Lymphocytes # (A) 0.8 k/uL (1.0-4.8); Lymphocytes % (A) 14 %; MCH 31.7 pg (25.0-35.0); MCHC 33.2 g/dL (31.0-37.0); MCV 95.5 fL (80.0-100.0); Mean Platelet Volume 6.9; Monocytes # (A) 0.2 k/uL (0-1.0); Monocytes % (A) 4 %; Neutrophils # (A) 4.4 k/uL (1.3-7.7); Neutrophils % (A) 81 %; Platelet Count 236 k/uL (150-450); RBC 4.49 m/uL (3.80-5.40); RDW 13.4 % (11.5-15.5); WBC 5.4 k/uL (3.8-10.6)
[2019-07-30 07:17] LABS: ALT 31 U/L (9-52); AST 27 U/L (14-36); African American GFR (CKD) >90 (>60 ml/min/1.73 sqM); Albumin 3.8 g/dL (3.5-5.0); Alkaline Phosphatase 72 U/L (38-126); Anion Gap 7 mmol/L; Blood Urea Nitrogen 19 mg/dL (7-17); Calcium 9.6 mg/dL (8.4-10.2); Carbon Dioxide 27 mmol/L (22-30); Chloride 104 mmol/L (98-107); Glucose 130 mg/dL (74-99); Non-African American GFR(CKD) >90 (>60 ml/min/1.73 sqM); Potassium 4.2 mmol/L (3.5-5.1); Sodium 138 mmol/L (137-145); Total Bilirubin 0.3 mg/dL (0.2-1.3); Total Protein 6.2 g/dL (6.3-8.2)
--- NOTE | 2019-07-30 08:44 | P.CNPUL ---
History of Present Illness Consult date: 07/29/19 Reason for consult: dyspnea, COPD History of present illness: A 78-year-old female patient was Hospital as for worsening shortness of breath as the patient came into the ED complaining of dyspnea for the duration addition to cough that was quite productive. No reported chest pain. The patient is known to have COPD. She was smoking up to recently. She does not utilize home O2. Her last hospital physician for COPD exacerbation was in January 2019. At that time the patient had some limited infiltration of the right lower lobe and she was hospitalized, treated and discharged home. Currently, the chest x-ray showing COPD with some right apical scarring. There is hyperinflation consistent with COPD and flattening of the diaphragms bilaterally. The white cell count was nonelevated. Normal renal function. Normal electrolytes. Moraima l troponin. BNP level is not elevated at 72. EKG showing a normal sinus rhythm with some left axis deviation. Previous echocardiogram from 2017 showed a preserved LV function with an ejection fraction of 55%. Review of Systems Constitutional: Reports as per HPI Eyes: denies as per HPI, denies blurred vision, denies bulging eye, denies decreased vision, denies diplopia, denies discharge, denies dry eye, denies irritation, denies itching, denies pain, denies photophobia, denies loss of peripheral vision, denies loss of vision, denies tunnel vision/blind spots Ears: deny: decreased hearing, ear discharge, earache, tinnitus Ears, nose, mouth and throat: Reports as per HPI Breasts: absent: as per HPI, change in shape, gynecomastia, masses, nipple disch arge, pain, skin changes, swelling Cardiovascular: Reports decreased exercise tolerance, Reports dyspnea on exertion, Reports shortness of breath Respiratory: Reports cough, Reports dyspnea Gastrointestinal: Reports as per HPI Genitourinary: Reports as per HPI Menstruation: Reports as per HPI Musculoskeletal: Reports as per HPI Musculoskeletal: absent: ankle pain, ankle stiffness, ankle swelling Integumentary: Denies pruritus, Denies rash Neurological: Reports as per HPI, Reports gait dysfunction, Reports motor disturbance, Reports weakness Psychiatric: Reports as per HPI Endocrine: Reports as per HPI Hematologic/Lymphatic: Reports as per HPI Allergic/Immunologic: Reports as per HPI Past Medical History Past Medical History: COPD, CVA/TIA, Hypertension, Thyroid Disorder Additional Past Medical History / Comment(s): Diverticular disease, COPD, previous history of CVA/TIA, hypertension, hypothyroidism, depression, nasal septal deviation History of Any Multi-Drug Resistant Organisms: None Reported Past Surgical History: Appendectomy Additional Past Surgical History / Comment(s): nasal septum Past Anesthesia/Blood Transfusion Reactions: No Reported Reaction Past Psychological History: Depression Smoking Status: Light tobacco smoker Past Alcohol Use History: None Reported Past Drug Use History: None Reported - Past Family History Mother Family Medical History: No Reported History Father Family Medical History: Unable to Obtain Medications and Allergies Home Medications Medication Instructions Recorded Confirmed Type Clopidogrel Bisulfate [Plavix] 75 mg PO HS 01/29/15 07/29/19 History HYDROcodone/APAP 10-325MG [Mcg[place] 1 tab PO HS 01/29/15 07/29/19 History 10-325] Levothyroxine Sodium [Synthroid] 50 mcg PO DAILY 04/03/16 07/29/19 History Aspirin 325 mg PO DAILY tab 09/29/17 07/29/19 Rx Hydrochlorothiazide 12.5 mg PO DAILY 08/10/18 07/29/19 History Primidone [Mysoline] 50 mg PO DAILY 01/26/19 07/29/19 History Baclofen [Lioresal] 10 mg PO BID 07/29/19 07/29/19 History Allergies Allergy/AdvReac Type Severity Reaction Status Date / Time cimetidine [From Tagamet] Allergy Rash/Hives Verified 07/29/19 11:43 cimetidine HCl [From Tagamet] Allergy Rash/Hives Verified 07/29/19 11:43 prednisone Allergy Swelling Verified 07/29/19 11:43 Physical Exam Vitals: Vital Signs Temp Pulse Pulse Resp BP BP Pulse Ox 07/29/19 16:48 92 07/29/19 16:37 92 07/29/19 16:00 17 07/29/19 14:54 97.3 F L 89 17 132/88 91 L 07/29/19 14:03 88 L 07/29/19 14:00 87 134/75 87 L 07/29/19 13:00 92 20 187/89 94 L 07/29/19 12:52 84 18 07/29/19 12:39 81 18 07/29/19 12:23 71 20 07/29/19 12:13 131 H 20 07/29/19 12:00 131 H 22 135/116 92 L 07/29/19 11:27 129/95 90 L 07/29/19 11:15 97.8 F 78 24 125/77 87 L Intake and Output 07/29/19 07/29/19 07/29/19 06:59 14:59 22:59 Other: Weight 51.256 kg GENERAL EXAM: 78-year-old female. Frail, cachectic. Alert, comfortable in no apparent distress. HEAD: Normocephalic. EYES: Normal reaction of pupils, equal size. NOSE: Clear with pink turbinates. THROAT: No erythema or exudates. NECK: No masses, no JVD. CHEST: No chest wall deformity. LUNGS: Equal air entry with crackles in the right posterior bases, end expiratory wheeze, diminished CVS: S1 and S2 normal with no audible murmur, regular rhythm. ABDOMEN: No hepatosplenomegaly, normal bowel sounds, no guarding or rigidity. SPINE: No scoliosis or deformity SKIN: No rashes CENTRAL NERVOUS SYSTEM: No focal deficits, tone is normal in all 4 extremities. EXTREMITIES: There is no peripheral edema. No clubbing, no cyanosis. Peripheral pulses are intact. Results - Laboratory Findings CBC and BMP: 07/29/19 11:50 07/29/19 11:50 PT/INR, D-dimer PT 10.1 sec (9.0-12.0) 07/29/19 11:50 INR 0.9 (<1.2) 07/29/19 11:50 Abnormal lab findings: Abnormal Labs 07/29/19 07/29/19 11:50 11:50 Hct 46.8 H Eosinophils # (Manual) 1.78 H BUN 19 H Glucose 101 H - Diagnostic Findings Chest x-ray: image reviewed Assessment and Plan Plan: #1 Acute hypoxic respiratory failure secondary to an acute exacerbation of chronic obstructive pulmonary disease #2 Chronic and ongoing tobacco dependence. #3 History of CVA with minimal left-sided residual weakness. Ambulates with a walker. Maintained on a combination of Plavix and aspirin. #4 Essential hypertension. #5 Degenerative joint disease. #6 Hyperlipidemia. #7 Hypothyroidism. #8 Cachexia. #9 diverticular disease #10 smoker Plan Optimize COPD exacerbation with a combination of DuoNeb nebulized treatments around the clock IV Solu-Medrol and resume home medications. Hepatic antibiotic coverage with IV Rocephin. Chest x-ray was reviewed and is consistent with hyperinflation related to COPD. No clear indication for pneumonia for now. Smoking cessation counseling was done.
[2019-07-30] MEDS: IPRATROPIUM-ALBUTEROL 3 ML NEB INHALATION SCH ×4 (08:53→20:33)
[2019-07-30] MEDS: BUDESONIDE 0.5 MG/2 ML NEBU INHALATION SCH ×2 (08:53→20:33)
[2019-07-30] MEDS: ENOXAPARIN 40 MG/0.4 ML SYRINGE SQ SCH (08:58)
[2019-07-30] MEDS: NICOTINE 14MG/24HR PATCH TRANSDERM SCH (09:00)
[2019-07-30] MEDS: PRIMIDONE 50 MG TAB PO SCH (09:00)
[2019-07-30] MEDS: PANTOPRAZOLE 40 MG TABLET PO SCH (09:00)
[2019-07-30] MEDS: HYDROCHLOROTHIAZIDE 12.5 MG CAP PO SCH (09:00)
[2019-07-30] MEDS: BACLOFEN 10 MG TAB PO SCH ×2 (09:00→21:02)
[2019-07-30] MEDS: ASPIRIN 325 MG TAB PO SCH (09:00)
[2019-07-30] MEDS ORDERED: PRIMIDONE 50 MG TAB PO SCH (09:00)
--- NOTE | 2019-07-30 12:42 | P.PN ---
Subjective Progress Note Date: 07/30/19 Principal diagnosis: Acute exacerbation of chronic obstructive pulmonary disease. A 78-year-old female patient was Hospital as for worsening shortness of breath as the patient came into the ED complaining of dyspnea for the duration addition to cough that was quite productive. No reported chest pain. The patient is known to have COPD. She was smoking up to recently. She does not utilize home O2. Her last hospital physician for COPD exacerbation was in January 2019. At th at time the patient had some limited infiltration of the right lower lobe and she was hospitalized, treated and discharged home. Currently, the chest x-ray showing COPD with some right apical scarring. There is hyperinflation consistent with COPD and flattening of the diaphragms bilaterally. The white cell count was nonelevated. Normal renal function. Normal electrolytes. Normal troponin. BNP level is not elevated at 72. EKG showing a normal sinus rhythm with some left axis deviation. Previous echocardiogram from 2016 showed a preserved LV function with an ejection fraction of 55%. The patient is seen today 07/30/2019 in follow-up on the regular medical floor. She is awake and alert in no acute distress. She is breathing a bit easier today as compared to yesterday. Not quite back to her baseline. Still dyspneic on exertion. She is maintaining O2 saturations in the low 90s on 2 L/m per nasal cannula. She's afebrile. White count 5.4. Hemoglobin 14.2. Creatinine 0.54. She remains on IV sign Medrol, DuoNeb inhalations, Pulmicort. Antibiotics in the form of ceftriaxone. NicoDerm patch is in place. Objective - Vital Signs Vital signs: Vital Signs Temp 97.8 F 07/30/19 11:12 Pulse 88 07/30/19 12:10 Resp 18 07/30/19 11:12 BP 110/59 07/30/19 11:12 Pulse Ox 91 L 07/30/19 11:12 Intake & Output 07/29/19 07/30/19 07/30/19 18:59 06:59 18:59 Weight 51.256 kg 51.256 kg Other: Voiding Method Toilet # Voids 0 - Exam GENERAL EXAM: 78-year-old female. Frail, cachectic. Alert, comfortable in no apparent distress. On 2 L/m per nasal cannula. HEAD: Normocephalic. EYES: Normal reaction of pupils, equal size. NOSE: Clear with pink turbinates. THROAT: No erythema or exudates. NECK: No masses, no JVD. CHEST: No chest wall deformity. LUNGS: Equal air entry with crackles in the right posterior base, end expiratory wheeze, diminished CVS: S1 and S2 normal with no audible murmur, regular rhythm. ABDOMEN: No hepatosplenomegaly, normal bowel sounds, no guarding or rigidity. SPINE: No scoliosis or deformity SKIN: No rashes CENTRAL NERVOUS SYSTEM: No focal deficits, tone is normal in all 4 extremities. EXTREMITIES: There is no peripheral edema. No clubbing, no cyanosis. Peripheral pulses are intact. - Labs CBC & Chem 7: 07/30/19 06:32 07/30/19 06:32 Labs: Abnormal Lab Results - Last 24 Hours (Table) 07/29/19 07/29/19 07/30/19 Range/Units 11:50 11:50 06:32 Lymphocytes # 0.8 L (1.0-4.8) k/uL Eosinophils # (Manual) 1.78 H (0-0.7) k/uL BUN 19 H (7-17) mg/dL Glucose 101 H (74-99) mg/dL Total Protein (6.3-8.2) g/dL 07/30/19 Range/Units 06:32 Lymphocytes # (1.0-4.8) k/uL Eosinophils # (Manual) (0-0.7) k/uL BUN 19 H (7-17) mg/dL Glucose 130 H (74-99) mg/dL Total Protein 6.2 L (6.3-8.2) g/dL Assessment and Plan Assessment: Impression: #1 Acute hypoxic respiratory failure secondary to an acute exacerbation of chronic obstructive pulmonary disease #2 Chronic and ongoing tobacco dependence. #3 History of CVA with minimal left-sided residual weakness. Ambulates with a walker. Maintained on a combination of Plavix and aspirin. #4 Essential hypertension. #5 Degenerative joint disease. #6 Hyperlipidemia. #7 Hypothyroidism. #8 Cachexia. #9 Diverticular disease Plan: The patient was seen and evaluated by Dr. Culver. She is improved today as compared to yesterday. Not quite back to her baseline. We'll continue with her current medications. Increase activity as tolerated. We'll continue to follow. I, the cosigning physician, performed a history & physical examination of the patient. Lungs sounds few scattered rhonchi more so on the right, end expiratory wheeze, diminished. Maintaining good O2 saturations in the 90s on 2 L/m per nasal cannula. I discussed the assessment and plan of care with my nurse practitioner, Hayley Mendoza. I attest to the above note as dictated by her.
--- NOTE | 2019-07-30 14:11 | P.PN ---
Subjective Progress Note Date: 07/30/19 This is a 78-year-old female patient who presented with complaints of increased shortness of breath. Patient reports that shortness breath started about 4 days ago and progressively increased with cough. Patient reports that cough is productive. Patient denies any fevers or chest pain. Patient does have past medical history of COPD, pneumonia, CVA, hypertension, hypothyroidism, heart murmur, diverticulitis, arthritis, depression and nicotine dependence. Chest x- ray completed showing findings of advanced COPD with similar right apical scarring. The mediastinum is suboptimally elevated given patient rotation. EKG showing normal sinus rhythm left axis deviation. Troponin negative. BNP 72. At this time patient still complaining of shortness breath cough. Patient started on Solu-Medrol pulmonary services have been consulted. Patient denies chest pain. Denies nausea vomiting diarrhea. Patient denies any urinary burning or frequency. On 07/30/2019 patient was seen and examined on the medical floor she is alert and oriented 3 in no apparent distress shortness of breath improved somewhat she is still complaining of some cough otherwise she denies any complaints there is no fever or chills no headache or dizziness no chest pain no nausea or vomiting no abdominal pain no diarrhea and no urinary symptoms Objective - Vital Signs Vital signs: Vital Signs Temp 97.8 F 07/30/19 11:12 Pulse 88 07/30/19 12:10 Resp 18 07/30/19 11:12 BP 110/59 07/30/19 11:12 Pulse Ox 91 L 07/30/19 11:12 Intake & Output 07/29/19 07/30/19 07/30/19 18:59 06:59 18:59 Weight 51.256 kg 51.256 kg Other: Voiding Method Toilet # Voids 0 - Exam In general patient is alert and oriented 3 in no apparent distress Head normocephalic and atraumatic Neck supple no JVD no goiter Lungs diminished bilaterally with expiratory wheezing Heart regular rate and rhythm S1-S2, no rub or gallop Abdomen is soft nontender nondistended positive bowel sounds no hepatosp lenomegaly Extremities no edema no cyanosis or clubbing Neuro no gross focal neurological deficit - Labs CBC & Chem 7: 07/30/19 06:32 07/30/19 06:32 Labs: Abnormal Lab Results - Last 24 Hours (Table) 07/30/19 07/30/19 Range/Units 06:32 06:32 Lymphocytes # 0.8 L (1.0-4.8) k/uL BUN 19 H (7-17) mg/dL Glucose 130 H (74-99) mg/dL Total Protein 6.2 L (6.3-8.2) g/dL Microbiology - Last 24 Hours (Table) 07/29/19 11:50 Blood Culture - Preliminary Blood No Growth after 24 hours Assessment and Plan Plan: 1. Increased shortness breath related to COPD exacerbation. Chest x-ray completed showing findings of advanced COPD with similar right apical scarring. Mediastinum is suboptimally evaluated given patient rotation. Coronary services have been consulted. Sputum culture ordered. Patient started on DuoNeb breath ing treatments and solumedrol. Rocephen for antibiotic 2. History of COPD 3. History of pneumonia 4. History of CVA. Maintained on Plavix and aspirin 5. History of essential hypertension 6. History of hypothyroidism. Synthroid resumed 7. History of diverticulitis 8. History of osteoarthritis 9. History of nicotine dependence. Patient educated greater than 3 minutes on smoking cessation. nicotine patch order 10. History of essential tremors. Patient maintained on primidone. follows with Dr. Ross DVT prophylaxis Lovenox. GI prophylaxis Protonix
[2019-07-30] MEDS: CLOPIDOGREL 75 MG TAB PO SCH (21:03)
[2019-07-30] MEDS: HYDROcodone/APAP 10-325MG 1 EACH TAB PO SCH (21:03)
[2019-07-31] MEDS: methylPREDNISolone SOD SUCCI 125 MG/2 ML VIAL IV SCH ×4 (01:09→17:49)
[2019-07-31] MEDS: LEVOTHYROXINE 50 MCG TAB PO SCH (06:55)
[2019-07-31 07:26] LABS: Basophils % (A) 0 %; Eosinophils % (A) 0 %; HCT 41.4 % (34.0-46.0); HGB 13.7 gm/dL (11.4-16.0); Lymphocytes # (A) 0.7 k/uL (1.0-4.8); Lymphocytes % (A) 5 %; MCH 31.9 pg (25.0-35.0); MCHC 33.1 g/dL (31.0-37.0); MCV 96.4 fL (80.0-100.0); Mean Platelet Volume 7.2; Monocytes # (A) 0.5 k/uL (0-1.0); Monocytes % (A) 4 %; Neutrophils # (A) 11.4 k/uL (1.3-7.7); Neutrophils % (A) 90 %; Platelet Count 228 k/uL (150-450); RDW 13.6 % (11.5-15.5); WBC 12.6 k/uL (3.8-10.6)
[2019-07-31 07:44] LABS: ALT 28 U/L (9-52); AST 24 U/L (14-36); African American GFR (CKD) >90 (>60 ml/min/1.73 sqM); Albumin 3.7 g/dL (3.5-5.0); Alkaline Phosphatase 63 U/L (38-126); Anion Gap 7 mmol/L; Blood Urea Nitrogen 22 mg/dL (7-17); Calcium 9.4 mg/dL (8.4-10.2); Carbon Dioxide 28 mmol/L (22-30); Chloride 104 mmol/L (98-107); Glucose 131 mg/dL (74-99); Non-African American GFR(CKD) 87 (>60 ml/min/1.73 sqM); Potassium 4.7 mmol/L (3.5-5.1); Sodium 139 mmol/L (137-145); Total Bilirubin 0.4 mg/dL (0.2-1.3)
[2019-07-31] MEDS: IPRATROPIUM-ALBUTEROL 3 ML NEB INHALATION SCH ×4 (08:32→20:13)
[2019-07-31] MEDS: BUDESONIDE 0.5 MG/2 ML NEBU INHALATION SCH ×2 (08:32→20:13)
[2019-07-31] MEDS: ENOXAPARIN 40 MG/0.4 ML SYRINGE SQ SCH (09:18)
[2019-07-31] MEDS: NICOTINE 14MG/24HR PATCH TRANSDERM SCH (09:18)
[2019-07-31] MEDS: BACLOFEN 10 MG TAB PO SCH ×2 (09:18→20:54)
[2019-07-31] MEDS: PANTOPRAZOLE 40 MG TABLET PO SCH (09:18)
[2019-07-31] MEDS: ASPIRIN 325 MG TAB PO SCH (09:18)
[2019-07-31] MEDS: PRIMIDONE 50 MG TAB PO SCH (09:19)
[2019-07-31] MEDS: HYDROCHLOROTHIAZIDE 12.5 MG CAP PO SCH (09:19)
--- NOTE | 2019-07-31 12:20 | P.PN ---
Subjective Progress Note Date: 07/31/19 A 78-year-old female patient was Hospital as for worsening shortness of breath as the patient came into the ED complaining of dyspnea for the duration addition to cough that was quite productive. No reported chest pain. The patient is known to have COPD. She was smoking up to recently. She does not utilize home O2. Her last hospital physician for COPD exacerbation was in January 2019. At that time the patient had some limited infiltration of the right lower lobe and she was hospitalized, treated and discharged home. Currently, the chest x-ray showing COPD with some right apical scarring. There is hyperinflation consistent with COPD and flattening of the diaphragms bilaterally. The white ce ll count was nonelevated. Normal renal function. Normal electrolytes. Normal troponin. BNP level is not elevated at 72. EKG showing a normal sinus rhythm with some left axis deviation. Previous echocardiogram from 2017 showed a preserved LV function with an ejection fraction of 55%. The patient is seen today 07/30/2019 in follow-up on the regular medical floor. She is awake and alert in no acute distress. She is breathing a bit easier today as compared to yesterday. Not quite back to her baseline. Still dyspneic on exertion. She is maintaining O2 saturations in the low 90s on 2 L/m per nasal cannula. She's afebrile. White count 5.4. Hemoglobin 14.2. Creatinine 0.54. She remains on IV sign Medrol, DuoNeb inhalations, Pulmicort. Antibiotics in the form of ceftriaxone. NicoDerm patch is in place. On 07/31/2019 the patient continues to improve. She is feeling better. Not back to her baseline. She is less short of breath in she has no new complaints. No cough or sputum production. She remains on accommodation bronchodilators and systemic steroids. She is also on IV Rocephin. Note that she is a chronic smoker in she has also history of COPD and last exacerbation for COPD exacerbation was in January 2019 requiring hospitalization. No signs of any cardiac myopathy at this point in time. No other significant events overnight. Objective - Vital Signs Vital signs: Vital Signs Temp 98.2 F 07/31/19 11:15 Pulse 80 07/31/19 12:09 Resp 18 07/31/19 11:15 BP 126/69 07/31/19 11:15 Pulse Ox 98 07/31/19 11:15 Intake & Output 07/30/19 07/31/19 07/31/19 18:59 06:59 18:59 Weight 51.256 kg Other: Voiding Method Toilet # Voids 1 1 - Exam GENERAL EXAM: 78-year-old female. Frail, cachectic. Alert, comfortable in no apparent distress. On 2 L/m per nasal cannula. HEAD: Normocephalic. EYES: Normal reaction of pupils, equal size. NOSE: Clear with pink turbinates. THROAT: No erythema or exudates. NECK: No masses, no JVD. CHEST: No chest wall deformity. LUNGS: Equal air entry with crackles in the right posterior base, end expiratory wheeze, diminished CVS: S1 and S2 normal with no audible murmur, regular rhythm. ABDOMEN: No hepatosplenomegaly, normal bowel sounds, no guarding or rigidity. SPINE: No scoliosis or deformity SKIN: No rashes CENTRAL NERVOUS SYSTEM: No focal deficits, tone is normal in all 4 extremities. EXTREMITIES: There is no peripheral edema. No clubbing, no cyanosis. Peripheral pulses are intact. - Labs CBC & Chem 7: 07/31/19 06:55 07/31/19 06:55 Labs: Abnormal Lab Results - Last 24 Hours (Table) 07/31/19 07/31/19 Range/Units 06:55 06:55 WBC 12.6 H (3.8-10.6) k/uL Neutrophils # 11.4 H (1.3-7.7) k/uL Lymphocytes # 0.7 L (1.0-4.8) k/uL BUN 22 H (7-17) mg/dL Glucose 131 H (74-99) mg/dL Total Protein 6.0 L (6.3-8.2) g/dL Microbiology - Last 24 Hours (Table) 07/29/19 11:50 Blood Culture Gram Stain - Preliminary Blood 07/29/19 11:50 Blood Culture - Final Blood 07/30/19 12:02 Gram Stain - Preliminary Sputum Assessment and Plan Plan: #1 Acute hypoxic respiratory failure secondary to an acute exacerbation of chronic obstructive pulmonary disease #2 Chronic and ongoing tobacco dependence. #3 History of CVA with minimal left-sided residual weakness. Ambulates with a walker. Maintained on a combination of Plavix and aspirin. #4 Essential hypertension. #5 Degenerative joint disease. #6 Hyperlipidemia. #7 Hypothyroidism. #8 Cachexia. #9 Diverticular disease Plan Continue to follow. Start tapering steroids as of tomorrow. Clinically im proved. Ambulate in the hallway. Possible discharge in the next 24-48 hours.
[2019-07-31] MEDS ORDERED: VANCOMYCIN IV PER PHARMACY 1 EACH MISC MISCELLANE PRN (13:36)
--- NOTE | 2019-07-31 13:51 | P.PN ---
Subjective Progress Note Date: 07/31/19 This is a 78-year-old female patient who presented with complaints of increased shortness of breath. Patient reports that shortness breath started about 4 days ago and progressively increased with cough. Patient reports that cough is productive. Patient denies any fevers or chest pain. Patient does have past medical history of COPD, pneumonia, CVA, hypertension, hypothyroidism, heart murmur, diverticulitis, arthritis, depression and nicotine dependence. Chest x- ray completed showing findings of advanced COPD with similar right apical scarring. The mediastinum is suboptimally elevated given patient rotation. EKG showing normal sinus rhythm left axis deviation. Troponin negative. BNP 72. At this time patient still complaining of shortness breath cough. Patient started on Solu-Medrol pulmonary services have been consulted. Patient denies chest pain. Denies nausea vomiting diarrhea. Patient denies any urinary burning or frequency. On 07/30/2019 patient was seen and examined on the medical floor she is alert and oriented 3 in no apparent distress shortness of breath improved somewhat she is still complaining of some cough otherwise she denies any complaints there is no fever or chills no headache or dizziness no chest pain no nausea or vomiting no abdominal pain no diarrhea and no urinary symptoms On 07/31/2019 patient was seen and examined on the medical floor she is alert and oriented 3 in no apparent distress she is still complaining of cough and shortness of breath otherwise she denies any complaints there is no fever or chills no headache or dizziness no chest pain no nausea or vomiting no abdominal pain no diarrhea no burning was urination no frequency or urgency and no hematuria. Today patient has positive blood culture for gram-positive cocci, IV vancomycin pharmacy to dose was added to her regimen until further details are available regarding blood culture results Objective - Vital Signs Vital signs: Vital Signs Temp 98.2 F 07/31/19 11:15 Pulse 80 07/31/19 12:09 Resp 18 07/31/19 11:15 BP 126/69 07/31/19 11:15 Pulse Ox 98 07/31/19 11:15 Intake & Output 07/30/19 07/31/19 07/31/19 18:59 06:59 18:59 Weight 51.256 kg Other: Voiding Method Toilet # Voids 1 1 - Exam In general patient is alert and oriented 3 in no apparent distress Head normocephalic and atraumatic Neck supple no JVD no goiter Lungs diminished bilaterally with expiratory wheezing Heart regular rate and rhythm S1-S2, no rub or gallop Abdomen is soft nontender nondistended positive bowel sounds no hepatosplenomegaly Extremities no edema no cyanosis or clubbing Neuro no gross focal neurological deficit - Labs CBC & Chem 7: 07/31/19 06:55 07/31/19 06:55 Labs: Abnormal Lab Results - Last 24 Hours (Table) 07/31/19 07/31/19 Range/Units 06:55 06:55 WBC 12.6 H (3.8-10.6) k/uL Neutrophils # 11.4 H (1.3-7.7) k/uL Lymphocytes # 0.7 L (1.0-4.8) k/uL BUN 22 H (7-17) mg/dL Glucose 131 H (74-99) mg/dL Total Protein 6.0 L (6.3-8.2) g/dL Microbiology - Last 24 Hours (Table) 07/29/19 11:50 Blood Culture Gram Stain - Preliminary Blood 07/29/19 11:50 Blood Culture - Final Blood 07/30/19 12:02 Gram Stain - Preliminary Sputum Assessment and Plan Plan: 1. Increased shortness breath related to COPD exacerbation. Chest x-ray completed showing findings of advanced COPD with similar right apical scarring. Mediastinum is suboptimally evaluated given patient rotation. Coronary services have been consulted. Sputum culture ordered. Patient started on DuoNeb breathing treatments and solumedrol. Rocephen for antibiotic 2. History of COPD 3. History of pneumonia 4. History of CVA. Maintained on Plavix and aspirin 5. History of essential hypertension 6. History of hypothyroidism. Synthroid resumed 7. History of diverticulitis 8. History of osteoarthritis 9. History of nicotine dependence. Patient educated greater than 3 minutes on smoking cessation. nicotine patch order 10. History of essential tremors. Patient maintained on primidone. follows with Dr. Ross DVT prophylaxis Lovenox. GI prophylaxis Protonix
[2019-07-31] MEDS: VANCOMYCIN 1,000 MG in SODIUM CHLORIDE 0.9% 250 ML IVPB SCH (15:38)
[2019-07-31] MEDS: HYDROcodone/APAP 10-325MG 1 EACH TAB PO SCH (20:53)
[2019-07-31] MEDS: CLOPIDOGREL 75 MG TAB PO SCH (20:54)
[2019-07-31] MEDS: ZOLPIDEM 5 MG TAB PO PRN (21:54)
[2019-08-01] MEDS: methylPREDNISolone SOD SUCCI 125 MG/2 ML VIAL IV SCH ×5 (00:50→23:50)
[2019-08-01] MEDS: VANCOMYCIN 1,000 MG in SODIUM CHLORIDE 0.9% 250 ML IVPB SCH ×2 (02:30→14:03)
[2019-08-01] MEDS: LEVOTHYROXINE 50 MCG TAB PO SCH (06:37)
[2019-08-01] MEDS: HYDROCHLOROTHIAZIDE 12.5 MG CAP PO SCH (07:40)
[2019-08-01] MEDS: BACLOFEN 10 MG TAB PO SCH ×2 (07:40→20:21)
[2019-08-01] MEDS: NICOTINE 14MG/24HR PATCH TRANSDERM SCH (07:41)
[2019-08-01] MEDS: PANTOPRAZOLE 40 MG TABLET PO SCH (07:41)
[2019-08-01] MEDS: ASPIRIN 325 MG TAB PO SCH (07:41)
[2019-08-01] MEDS: ENOXAPARIN 40 MG/0.4 ML SYRINGE SQ SCH (07:41)
[2019-08-01] MEDS: PRIMIDONE 50 MG TAB PO SCH (07:42)
[2019-08-01] MEDS: BUDESONIDE 0.5 MG/2 ML NEBU INHALATION SCH ×2 (07:42→19:58)
[2019-08-01] MEDS: IPRATROPIUM-ALBUTEROL 3 ML NEB INHALATION SCH ×4 (07:42→19:59)
[2019-08-01 08:45] LABS: Basophils % (A) 0 %; Eosinophils # (A) 0.1 k/uL (0-0.7); Eosinophils % (A) 0 %; HCT 44.1 % (34.0-46.0); HGB 14.4 gm/dL (11.4-16.0); Lymphocytes # (A) 0.8 k/uL (1.0-4.8); Lymphocytes % (A) 6 %; MCH 31.8 pg (25.0-35.0); MCHC 32.7 g/dL (31.0-37.0); MCV 97.2 fL (80.0-100.0); Mean Platelet Volume 7.6; Monocytes # (A) 0.4 k/uL (0-1.0); Monocytes % (A) 3 %; Neutrophils # (A) 11.7 k/uL (1.3-7.7); Neutrophils % (A) 90 %; Platelet Count 233 k/uL (150-450); RBC 4.53 m/uL (3.80-5.40); RDW 15.1 % (11.5-15.5); WBC 13.1 k/uL (3.8-10.6)
[2019-08-01 08:49] LABS: ALT 32 U/L (9-52); AST 22 U/L (14-36); African American GFR (CKD) >90 (>60 ml/min/1.73 sqM); Albumin 3.7 g/dL (3.5-5.0); Alkaline Phosphatase 70 U/L (38-126); Anion Gap 6 mmol/L; Blood Urea Nitrogen 23 mg/dL (7-17); Calcium 9.4 mg/dL (8.4-10.2); Carbon Dioxide 28 mmol/L (22-30); Chloride 103 mmol/L (98-107); Glucose 128 mg/dL (74-99); Non-African American GFR(CKD) 86 (>60 ml/min/1.73 sqM); Potassium 4.3 mmol/L (3.5-5.1); Sodium 137 mmol/L (137-145); Total Bilirubin 0.4 mg/dL (0.2-1.3); Total Protein 6.1 g/dL (6.3-8.2)
--- NOTE | 2019-08-01 10:00 | P.PN ---
Subjective Progress Note Date: 08/01/19 This is a 78-year-old female patient who presented with complaints of increased shortness of breath. Patient reports that shortness breath started about 4 days ago and progressively increased with cough. Patient reports that cough is productive. Patient denies any fevers or chest pain. Patient does have past medical history of COPD, pneumonia, CVA, hypertension, hypothyroidism, heart murmur, diverticulitis, arthritis, depression and nicotine dependence. Chest x- ray completed showing findings of advanced COPD with similar right apical scarring. The mediastinum is suboptimally elevated given patient rotation. EKG showing normal sinus rhythm left axis deviation. Troponin negative. BNP 72. At this time patient still complaining of shortness breath cough. Patient started on Solu-Medrol pulmonary services have been consulted. Patient denies chest pain. Denies nausea vomiting diarrhea. Patient denies any urinary burning or frequency. On 07/30/2019 patient was seen and examined on the medical floor she is alert and oriented 3 in no apparent distress shortness of breath improved somewhat she is still complaining of some cough otherwise she denies any complaints there is no fever or chills no headache or dizziness no chest pain no nausea or vomiting no abdominal pain no diarrhea and no urinary symptoms On 07/31/2019 patient was seen and examined on the medical floor she is alert and oriented 3 in no apparent distress she is still complaining of cough and shortness of breath otherwise she denies any complaints there is no fever or chills no headache or dizziness no chest pain no nausea or vomiting no abdominal pain no diarrhea no burning was urination no frequency or urgency and no hematuria. Today patient has positive blood culture for gram-positive cocci, IV vancomycin pharmacy to dose was added to her regimen until further details are available regarding blood culture results 08/01/2019 patient's alert and oriented 3. Patient does report some improvement with shortness of breath. Patient reports that she is still having some shortness of breath with activity remains on 3 L nasal cannula. Blood culture growing coagulase-negative staph. At this time patient denies chest pain. Patient denies nausea vomiting or diarrhea. Patient denies any urinary f requency or burning. Objective - Vital Signs Vital signs: Vital Signs Temp 97.6 F 08/01/19 05:00 Pulse 78 08/01/19 07:55 Resp 16 08/01/19 05:00 BP 116/64 08/01/19 05:00 Pulse Ox 92 L 08/01/19 05:00 Intake & Output 07/31/19 08/01/19 08/01/19 18:59 06:59 18:59 Intake Total 50 550 Balance 50 550 Intake: Intake, IV Titration 50 250 Amount Vancomycin 1,000 mg In 250 Sodium Chloride 0.9% 250 ml @ 125 mls/hr IVPB Q12H [facility] Rx#:[id number] cefTRIAXone 1 gm In 50 Sodium Chloride 0.9% 50 ml @ 100 mls/hr IVPB Q24HR [facility] Rx#:[id number] Oral 300 Other: Voiding Method Toilet # Voids 2 1 - Exam In general patient is alert and oriented 3 in no apparent distress Head normocephalic and atraumatic Neck supple no JVD no goiter Lungs diminished bilaterally with expiratory wheezing Heart regular rate and rhythm S1-S2, no rub or gallop Abdomen is soft nontender nondistended positive bowel sounds no hepatosplenomegaly Extremities no edema no cyanosis or clubbing Neuro no gross focal neurological deficit - Labs CBC & Chem 7: 08/01/19 08:15 08/01/19 08:15 Labs: Abnormal Lab Results - Last 24 Hours (Table) 08/01/19 08/01/19 Range/Units 08:15 08:15 WBC 13.1 H (3.8-10.6) k/uL Neutrophils # 11.7 H (1.3-7.7) k/uL Lymphocytes # 0.8 L (1.0-4.8) k/uL BUN 23 H (7-17) mg/dL Glucose 128 H (74-99) mg/dL Total Protein 6.1 L (6.3-8.2) g/dL Microbiology - Last 24 Hours (Table) 07/29/19 11:50 Blood Culture Gram Stain - Preliminary Blood Blood Culture - Preliminary Coagulase Negative Staph 07/29/19 11:50 Blood Culture - Final Blood 07/30/19 12:02 Gram Stain - Preliminary Sputum Assessment and Plan Assessment: 1. Increased shortness breath related to COPD exacerbation. Chest x-ray completed showing findings of advanced COPD with similar right apical scarring. Mediastinum is suboptimally evaluated given patient rotation. Coronary services have been consulted. Sputum culture ordered. Patient started on DuoNeb breathing treatments and solumedrol. Rocephen for antibiotic 2. History of COPD 3. History of pneumonia 4. History of CVA. Maintained on Plavix and aspirin 5. History of essential hypertension 6. History of hypothyroidism. Synthroid resumed 7. History of diverticulitis 8. History of osteoarthritis 9. History of nicotine dependence. Patient educated greater than 3 minutes on smoking cessation. nicotine patch order 10. History of essential tremors. Patient maintained on primidone. follows with Dr. Ross 11. Positive blood culture. Culture growing coagulase-negative staph. Patient maintained on vancomycin DVT prophylaxis Lovenox. GI prophylaxis Protonix I performed an examination of the patient and discussed their management with the Nurse Practitioner. I have reviewed the Nurse Practitioner's notes and agree with the documented findings and plan of care
--- NOTE | 2019-08-01 13:30 | P.PN ---
Subjective Progress Note Date: 08/01/19 Principal diagnosis: Acute hypoxic respiratory failure secondary to acute exacerbation of COPD A 78-year-old female patient was Hospital as for worsening shortness of breath as the patient came into the ED complaining of dyspnea for the duration addition to cough that was quite productive. No reported chest pain. The patient is known to have COPD. She was smoking up to recently. She does not utilize home O2. Her last hospital physician for COPD exacerbation was in January 2019. At that time the patient had some limited infiltration of the right lower lobe and she was hospitalized, treated and discharged home. Currently, the chest x-ray showing COPD with some right apical scarring. There is hyperinflation consistent with COPD and flattening of the diaphragms bilaterally. The white cell count was nonelevated. Normal renal function. Normal electrolytes. Normal troponin. BNP level is not elevated at 72. EKG showing a normal sinus rhythm with some left axis deviation. Previous echocardiogram from 2017 showed a preserved LV function with an ejection fraction of 55%. The patient is seen today 07/30/2019 in follow-up on the regular medical floor. She is awake and alert in no acute distress. She is breathing a bit easier today as compared to yesterday. Not quite back to her baseline. Still dyspneic on exertion. She is maintaining O2 saturations in the low 90s on 2 L/m per nasal cannula. She's afebrile. White count 5.4. Hemoglobin 14.2. Creatinine 0.54. She remains on IV sign Medrol, DuoNeb inhalations, Pulmicort. Antibiotics in the form of ceftriaxone. NicoDerm patch is in place. On 07/31/2019 the patient continues to improve. She is feeling better. Not back to her baseline. She is less short of breath in she has no new complaints. No cough or sputum production. She remains on accommodation bronchodilators and systemic steroids. She is also on IV Rocephin. Note that she is a chronic smoker in she has also history of COPD and last exacerbation for COPD exacerbation was in January 2019 requiring hospitalization. No signs of any cardiac myopathy at this point in time. No other significant events overnight. Reevaluated today on 08/01/2019, patient is feeling better, breathing easier, hardly any cough no wheezing no shortness of breath, patient is on bronchodilators, antibiotics, and I believe at this point she could be considered for discharge home either today or in the next 24 hours. From my perspective the patient has made a significant improvement, and on physical examination she has diminished breath sound bilaterally no crackles or rhonchi or wheezes. CBC showed leukocytosis with WBC count of 13.1 hemoglobin is 14.4 basic metabolic profile is normal. Objective - Vital Signs Vital signs: Vital Signs Temp 98.5 F 08/01/19 12:07 Pulse 67 08/01/19 12:07 Resp 18 08/01/19 12:07 BP 142/72 08/01/19 12:07 Pulse Ox 93 L 08/01/19 12:07 Intake & Output 07/31/19 08/01/19 08/01/19 18:59 06:59 18:59 Intake Total 50 550 Balance 50 550 Intake: Intake, IV Titration 50 250 Amount Vancomycin 1,000 mg In 250 Sodium Chloride 0.9% 250 ml @ 125 mls/hr IVPB Q12H [facility] Rx#:[id number] cefTRIAXone 1 gm In 50 Sodium Chloride 0.9% 50 ml @ 100 mls/hr IVPB Q24HR [facility] Rx#:[id number] Oral 300 Other: Voiding Method Toilet # Voids 2 1 - Exam Physical Exam: Revealed 78-year-old female in no distress. Head: Atraumatic, normocephalic. HEENT:[Neck is supple.] [No neck masses.] [No thyromegaly.] [No JVD.] Chest: [Diminished breath sound bilaterally no crackles or rhonchi or wheezes. Cardiac Exam: [Normal S1 and S2, no S3 gallop, no murmur.] Abdomen: [Soft, nontender, no megaly, no rebound, no guarding, normal bowel sounds.] Extremities: [No clubbing, no edema, no cyanosis.] Neurological Exam: [No focal neurologic deficit.] Alert oriented 3. Psychiatric: Normal mood affect and normal mental status examination. Skin: No rashes. - Labs CBC & Chem 7: 08/01/19 08:15 08/01/19 08:15 Labs: Abnormal Lab Results - Last 24 Hours (Table) 08/01/19 08/01/19 Range/Units 08:15 08:15 WBC 13.1 H (3.8-10.6) k/uL Neutrophils # 11.7 H (1.3-7.7) k/uL Lymphocytes # 0.8 L (1.0-4.8) k/uL BUN 23 H (7-17) mg/dL Glucose 128 H (74-99) mg/dL Total Protein 6.1 L (6.3-8.2) g/dL Microbiology - Last 24 Hours (Table) 07/29/19 11:50 Blood Culture Gram Stain - Preliminary Blood Blood Culture - Preliminary Coagulase Negative Staph 07/29/19 11:50 Blood Culture - Final Blood Assessment and Plan Assessment: Impression: Acute hypoxic respiratory failure secondary to acute exacerbation of COPD 2 ongoing tobacco dependence . 3 previous history of CVA and left-sided residual weakness 4 essential hypertension 5 hypothyroidism 6 history of diverticular disease Recommendation: Continue present meds, switch patient to prednisone 30 mg and tapered over the next 3 weeks, continue the same bronchodilators and updrafts, consider discharge home today, clear for discharge planning. Time with Patient: Less than 30
[2019-08-01] MEDS: CLOPIDOGREL 75 MG TAB PO SCH (20:21)
[2019-08-01] MEDS: HYDROcodone/APAP 10-325MG 1 EACH TAB PO SCH (20:21)
[2019-08-01] MEDS: ZOLPIDEM 5 MG TAB PO PRN (21:40)
[2019-08-02] MEDS: VANCOMYCIN 1,000 MG in SODIUM CHLORIDE 0.9% 250 ML IVPB SCH (01:39)
[2019-08-02] MEDS: LEVOTHYROXINE 50 MCG TAB PO SCH (05:51)
[2019-08-02] MEDS: methylPREDNISolone SOD SUCCI 125 MG/2 ML VIAL IV SCH ×3 (05:51→17:25)
[2019-08-02 07:45] LABS: Basophils % (A) 0 %; Eosinophils # (A) 0.1 k/uL (0-0.7); Eosinophils % (A) 1 %; HCT 43.4 % (34.0-46.0); Lymphocytes # (A) 0.6 k/uL (1.0-4.8); Lymphocytes % (A) 7 %; MCH 31.4 pg (25.0-35.0); MCHC 32.2 g/dL (31.0-37.0); MCV 97.6 fL (80.0-100.0); Mean Platelet Volume 7.7; Monocytes # (A) 0.4 k/uL (0-1.0); Monocytes % (A) 4 %; Neutrophils # (A) 7.2 k/uL (1.3-7.7); Neutrophils % (A) 87 %; Platelet Count 227 k/uL (150-450); RBC 4.44 m/uL (3.80-5.40); RDW 14.9 % (11.5-15.5); WBC 8.3 k/uL (3.8-10.6)
[2019-08-02] MEDS: NICOTINE 14MG/24HR PATCH TRANSDERM SCH (08:02)
[2019-08-02] MEDS: ENOXAPARIN 40 MG/0.4 ML SYRINGE SQ SCH (08:02)
[2019-08-02] MEDS: ASPIRIN 325 MG TAB PO SCH (08:02)
[2019-08-02] MEDS: PANTOPRAZOLE 40 MG TABLET PO SCH (08:02)
[2019-08-02] MEDS: HYDROCHLOROTHIAZIDE 12.5 MG CAP PO SCH (08:02)
[2019-08-02] MEDS: BACLOFEN 10 MG TAB PO SCH ×2 (08:02→21:46)
[2019-08-02] MEDS: PRIMIDONE 50 MG TAB PO SCH (08:02)
[2019-08-02 08:04] LABS: ALT 32 U/L (9-52); AST 19 U/L (14-36); African American GFR (CKD) >90 (>60 ml/min/1.73 sqM); Albumin 3.4 g/dL (3.5-5.0); Alkaline Phosphatase 62 U/L (38-126); Anion Gap 5 mmol/L; Blood Urea Nitrogen 23 mg/dL (7-17); Calcium 9.3 mg/dL (8.4-10.2); Carbon Dioxide 29 mmol/L (22-30); Chloride 104 mmol/L (98-107); Glucose 115 mg/dL (74-99); Non-African American GFR(CKD) >90 (>60 ml/min/1.73 sqM); Potassium 4.5 mmol/L (3.5-5.1); Sodium 138 mmol/L (137-145); Total Bilirubin 0.3 mg/dL (0.2-1.3); Total Protein 5.6 g/dL (6.3-8.2)
[2019-08-02] MEDS: BUDESONIDE 0.5 MG/2 ML NEBU INHALATION SCH ×2 (08:50→20:13)
[2019-08-02] MEDS: IPRATROPIUM-ALBUTEROL 3 ML NEB INHALATION SCH ×4 (08:50→20:14)
[2019-08-02] MEDS ORDERED: guaiFENesin 600 MG TABLET.ER PO PRN (11:20)
--- NOTE | 2019-08-02 11:22 | P.PN ---
Subjective Progress Note Date: 08/02/19 This is a 78-year-old female patient who presented with complaints of increased shortness of breath. Patient reports that shortness breath started about 4 days ago and progressively increased with cough. Patient reports that cough is productive. Patient denies any fevers or chest pain. Patient does have past medical history of COPD, pneumonia, CVA, hypertension, hypothyroidism, heart murmur, diverticulitis, arthritis, depression and nicotine dependence. Chest x- ray completed showing findings of advanced COPD with similar right apical scarring. The mediastinum is suboptimally elevated given patient rotation. EKG showing normal sinus rhythm left axis deviation. Troponin negative. BNP 72. At this time patient still complaining of shortness breath cough. Patient started on Solu-Medrol pulmonary services have been consulted. Patient denies chest pain. Denies nausea vomiting diarrhea. Patient denies any urinary burning or frequency. On 07/30/2019 patient was seen and examined on the medical floor she is alert and oriented 3 in no apparent distress shortness of breath improved somewhat she is still complaining of some cough otherwise she denies any complaints there is no fever or chills no headache or dizziness no chest pain no nausea or vomiting no abdominal pain no diarrhea and no urinary symptoms On 07/31/2019 patient was seen and examined on the medical floor she is alert and oriented 3 in no apparent distress she is still complaining of cough and shortness of breath otherwise she denies any complaints there is no fever or chills no headache or dizziness no chest pain no nausea or vomiting no abdominal pain no diarrhea no burning was urination no frequency or urgency and no hematuria. Today patient has positive blood culture for gram-positive cocci, IV vancomycin pharmacy to dose was added to her regimen until further details are available regarding blood culture results 08/01/2019 patient's alert and oriented 3. Patient does report some improvement with shortness of breath. Patient reports that she is still having some shortness of breath with activity remains on 3 L nasal cannula. Blood culture growing coagulase-negative staph. At this time patient denies chest pain. Patient denies nausea vomiting or diarrhea. Patient denies any urinary f requency or burning. On 08/02/2019 patient's alert and oriented 3. Patient is still having some shortness of breath with activity. Patient does not feel quite ready to be discharged home. Will order Mucinex. Discussed case with pulmonary team. Blood culture growing staph hominis sub sp.. [facility] Patient denies chest pain. Patient denies nausea vomiting or diarrhea. Patient denies any urinary burning or frequency. Patient will likely need home O2 upon discharge Objective - Vital Signs Vital signs: Vital Signs Temp 97.5 F L 08/02/19 05:00 Pulse 72 08/02/19 09:08 Resp 20 08/02/19 05:00 BP 122/66 08/02/19 05:00 Pulse Ox 93 L 08/02/19 08:53 Intake & Output 08/01/19 08/02/19 08/02/19 18:59 06:59 18:59 Intake Total 1640 360 Balance 1640 360 Weight 51.256 kg Intake: Intake, IV Titration 300 Amount Vancomycin 1,000 mg In 250 Sodium Chloride 0.9% 250 ml @ 125 mls/hr IVPB Q12H [facility] Rx#:[id number] cefTRIAXone 1 gm In 50 Sodium Chloride 0.9% 50 ml @ 100 mls/hr IVPB Q24HR [facility] Rx#:[id number] Oral 1340 360 Other: Voiding Method Toilet Toilet Toilet # Voids 4 2 - Exam In general patient is alert and oriented 3 in no apparent distress Head normocephalic and atraumatic Neck supple no JVD no goiter Lungs diminished bilaterally with expiratory wheezing Heart regular rate and rhythm S1-S2, no rub or gallop Abdomen is soft nontender nondistended positive bowel sounds no hepatosplenomegaly Extremities no edema no cyanosis or clubbing Neuro no gross focal neurological deficit - Labs CBC & Chem 7: 08/02/19 06:57 08/02/19 06:57 Labs: Abnormal Lab Results - Last 24 Hours (Table) 08/02/19 08/02/19 Range/Units 06:57 06:57 Lymphocytes # 0.6 L (1.0-4.8) k/uL BUN 23 H (7-17) mg/dL Glucose 115 H (74-99) mg/dL Total Protein 5.6 L (6.3-8.2) g/dL Albumin 3.4 L (3.5-5.0) g/dL Microbiology - Last 24 Hours (Table) 07/29/19 11:50 Blood Culture Gram Stain - Final Blood Blood Culture - Final Staph hominis sub sp. hominis 07/30/19 12:02 Gram Stain - Final Sputum Sputum Culture - Final Assessment and Plan Assessment: 1. Increased shortness breath related to COPD exacerbation. Chest x-ray completed showing findings of advanced COPD with similar right apical scarring. Mediastinum is suboptimally evaluated given patient rotation. Coronary services have been consulted. Sputum culture ordered. Patient started on DuoNeb breat diony treatments and solumedrol. Rocephen for antibiotic 2. History of COPD 3. History of pneumonia 4. History of CVA. Maintained on Plavix and aspirin 5. History of essential hypertension 6. History of hypothyroidism. Synthroid resumed 7. History of diverticulitis 8. History of osteoarthritis 9. History of nicotine dependence. Patient educated greater than 3 minutes on smoking cessation. nicotine patch order 10. History of essential tremors. Patient maintained on primidone. follows with Dr. Ross 11. Positive blood culture. Culture growing coagulase-negative staph. Patient maintained on vancomycin. Blood culture contamination Vanco DC'd DVT prophylaxis Lovenox. GI prophylaxis Protonix I performed an examination of the patient and discussed their management with the Nurse Practitioner. I have reviewed the Nurse Practitioner's notes and agree with the documented findings and plan of care
--- NOTE | 2019-08-02 11:34 | P.PN ---
Subjective Progress Note Date: 08/02/19 Principal diagnosis: Acute exacerbation of chronic obstructive pulmonary disease. A 78-year-old female patient was Hospital as for worsening shortness of breath as the patient came into the ED complaining of dyspnea for the duration addition to cough that was quite productive. No reported chest pain. The patient is known to have COPD. She was smoking up to recently. She does not utilize home O2. Her last hospital physician for COPD exacerbation was in January 2019. At th at time the patient had some limited infiltration of the right lower lobe and she was hospitalized, treated and discharged home. Currently, the chest x-ray showing COPD with some right apical scarring. There is hyperinflation consistent with COPD and flattening of the diaphragms bilaterally. The white cell count was nonelevated. Normal renal function. Normal electrolytes. Normal troponin. BNP level is not elevated at 72. EKG showing a normal sinus rhythm with some left axis deviation. Previous echocardiogram from 2017 showed a preserved LV function with an ejection fraction of 55%. The patient is seen today 08/02/2019 in follow-up on the regular medical floor. She remains awake and alert in no acute distress. She is requiring 3 L/m per nasal cannula to maintain O2 saturation in the 90s. She's been afebrile. Hemodynamically stable. Sputum culture reveals no growth. White count 8.3. Hemoglobin 14.0. Creatinine 0.52. Objective - Vital Signs Vital signs: Vital Signs Temp 97.5 F L 08/02/19 05:00 Pulse 72 08/02/19 09:08 Resp 20 08/02/19 05:00 BP 122/66 08/02/19 05:00 Pulse Ox 93 L 08/02/19 08:53 Intake & Output 08/01/19 08/02/19 08/02/19 18:59 06:59 18:59 Intake Total 1640 360 Balance 1640 360 Weight 51.256 kg Intake: Intake, IV Titration 300 Amount Vancomycin 1,000 mg In 250 Sodium Chloride 0.9% 250 ml @ 125 mls/hr IVPB Q12H [facility] Rx#:[id number] cefTRIAXone 1 gm In 50 Sodium Chloride 0.9% 50 ml @ 100 mls/hr IVPB Q24HR [facility] Rx#:[id number] Oral 1340 360 Other: Voiding Method Toilet Toilet Toilet # Voids 4 2 - Exam GENERAL EXAM: 78-year-old female. Frail, cachectic. Alert, comfortable in no apparent distress. On 3 L/m per nasal cannula. HEAD: Normocephalic. EYES: Normal reaction of pupils, equal size. NOSE: Clear with pink turbinates. THROAT: No erythema or exudates. NECK: No masses, no JVD. CHEST: No chest wall deformity. LUNGS: Equal air entry with crackles in the right posterior base, end expiratory wheeze, diminished CVS: S1 and S2 normal with no audible murmur, regular rhythm. ABDOMEN: No hepatosplenomegaly, normal bowel sounds, no guarding or rigidity. SPINE: No scoliosis or deformity SKIN: No rashes CENTRAL NERVOUS SYSTEM: No focal deficits, tone is normal in all 4 extremities. EXTREMITIES: There is no peripheral edema. No clubbing, no cyanosis. Peripheral pulses are intact. - Labs CBC & Chem 7: 08/02/19 06:57 08/02/19 06:57 Labs: Abnormal Lab Results - Last 24 Hours (Table) 08/02/19 08/02/19 Range/Units 06:57 06:57 Lymphocytes # 0.6 L (1.0-4.8) k/uL BUN 23 H (7-17) mg/dL Glucose 115 H (74-99) mg/dL Total Protein 5.6 L (6.3-8.2) g/dL Albumin 3.4 L (3.5-5.0) g/dL Microbiology - Last 24 Hours (Table) 07/29/19 11:50 Blood Culture Gram Stain - Final Blood Blood Culture - Final Staph hominis sub sp. hominis 07/30/19 12:02 Gram Stain - Final Sputum Sputum Culture - Final Assessment and Plan Assessment: Impression: #1 Acute hypoxic respiratory failure secondary to an acute exacerbation of chronic obstructive pulmonary disease #2 Chronic and ongoing tobacco dependence. #3 History of CVA with minimal left-sided residual weakness. Ambulates with a walker. Maintained on a combination of Plavix and aspirin. #4 Essential hypertension. #5 Degenerative joint disease. #6 Hyperlipidemia. #7 Hypothyroidism. #8 Cachexia. #9 Diverticular disease Plan: The patient was seen and evaluated by Dr. Esquivel. She is cleared for discharge from the pulmonary standpoint. She will require home oxygen. Complete a prednisone burst and taper starting at 40 mg daily for 4 days. Continue DuoNeb inhalations. Generic Advair might work for her due to cost. She is again educated regarding the importance of complete smoking cessation. Follow-up in our office in 1-2 weeks' time. I, the cosigning physician, performed a history & physical examination of the patient. Lungs sounds with end expiratory wheeze, diminished. Maintaining good O2 saturations in the 90s on 3 L/m per nasal cannula. I discussed the assessment and plan of care with my nurse practitioner, Hayley Mendoza. I attest to the above note as dictated by her.
[2019-08-02] MEDS ORDERED: VANCOMYCIN TROUGH DUE 1 EACH MISC MISCELLANE ONE (13:00)
--- NOTE | 2019-08-02 14:50 | CDI ---
Documentation Clarification Form Date: 08/02/2019 2:25:01 PM From: Yaz Richardson RN, CCDS Admit Date: 07/29/2019 1:25:00 PM Patient Name: Elicia Zurita Visit Number: [id number] ATTENTION: The Clinical Documentation Specialists (CDI) and [facility] Coding Staff appreciate your assistance in clarifying documentation. Please respond to the clarification below the line at the bottom and electronically sign. The CDI & [facility] Coding staff will review the response and follow-up if needed. Please note: Queries are made part of the Legal Health Record. If you have any questions, please contact the author of this message via ITS. Dr. Kyleigh Garcia Cachexia w/ a BMI of 17.7 has been documented in the progress notes. Please provide further specificity to accurately reflect severity of illness. History/Risk Factors: Acute respiratory failure with COPD exacerbation, chronic tobacco dependence, hypothyroid, diverticular disease Clinical Indicators: Pulmonary consult and Progress Notes: " General exam: frail cachectic. Cachexia" Labs: total protein 5.6 Albumin 3.4 Current BMI: 17.7 Insufficient energy intake: pt becomes SOB when eating d/t COPD Treatment: Dietary Consult: Completed 07/30 & 08/02 Supplements: Magic Cups BID- pt refusing Ensure Lab monitoring: AM daily In your professional opinion, can you please clarify if these findings signify one of the following conditions? Mild Protein-Calorie Malnutrition Moderate Protein-Calorie Malnutrition Severe Protein-Calorie Malnutrition Other condition, please specify Unable to determine (Last Revision: May 2019) moderate protein calorie malnutrition MTDD
[2019-08-02] MEDS: CLOPIDOGREL 75 MG TAB PO SCH (21:46)
[2019-08-02] MEDS: HYDROcodone/APAP 10-325MG 1 EACH TAB PO SCH (21:47)
[2019-08-02] MEDS: ZOLPIDEM 5 MG TAB PO PRN (21:47)
[2019-08-03] MEDS: methylPREDNISolone SOD SUCCI 125 MG/2 ML VIAL IV SCH ×3 (00:05→13:37)
[2019-08-03] MEDS: LEVOTHYROXINE 50 MCG TAB PO SCH (05:40)
[2019-08-03 07:35] LABS: Basophils # (A) 0.1 k/uL (0-0.2); Basophils % (A) 1 %; Eosinophils # (A) 0.1 k/uL (0-0.7); Eosinophils % (A) 1 %; HCT 44.8 % (34.0-46.0); HGB 14.6 gm/dL (11.4-16.0); Lymphocytes # (A) 1.8 k/uL (1.0-4.8); Lymphocytes % (A) 24 %; MCH 31.7 pg (25.0-35.0); MCHC 32.6 g/dL (31.0-37.0); MCV 97.2 fL (80.0-100.0); Mean Platelet Volume 7.1; Monocytes # (A) 0.7 k/uL (0-1.0); Monocytes % (A) 9 %; Neutrophils # (A) 4.6 k/uL (1.3-7.7); Neutrophils % (A) 63 %; Platelet Count 228 k/uL (150-450); RBC 4.61 m/uL (3.80-5.40); RDW 13.6 % (11.5-15.5); WBC 7.3 k/uL (3.8-10.6)
[2019-08-03 07:49] LABS: ALT 35 U/L (9-52); AST 21 U/L (14-36); African American GFR (CKD) >90 (>60 ml/min/1.73 sqM); Albumin 3.3 g/dL (3.5-5.0); Alkaline Phosphatase 59 U/L (38-126); Anion Gap 4 mmol/L; Blood Urea Nitrogen 27 mg/dL (7-17); Calcium 9.1 mg/dL (8.4-10.2); Carbon Dioxide 31 mmol/L (22-30); Chloride 102 mmol/L (98-107); Glucose 78 mg/dL (74-99); Non-African American GFR(CKD) 89 (>60 ml/min/1.73 sqM); Sodium 137 mmol/L (137-145); Total Bilirubin 0.4 mg/dL (0.2-1.3); Total Protein 5.6 g/dL (6.3-8.2)
[2019-08-03] MEDS: IPRATROPIUM-ALBUTEROL 3 ML NEB INHALATION SCH ×4 (08:24→20:31)
[2019-08-03] MEDS: BUDESONIDE 0.5 MG/2 ML NEBU INHALATION SCH ×2 (08:24→20:31)
[2019-08-03] MEDS: ASPIRIN 325 MG TAB PO SCH (08:40)
[2019-08-03] MEDS: ENOXAPARIN 40 MG/0.4 ML SYRINGE SQ SCH (08:40)
[2019-08-03] MEDS: BACLOFEN 10 MG TAB PO SCH ×2 (08:40→20:22)
[2019-08-03] MEDS: NICOTINE 14MG/24HR PATCH TRANSDERM SCH (08:40)
[2019-08-03] MEDS: PANTOPRAZOLE 40 MG TABLET PO SCH (08:40)
[2019-08-03] MEDS: HYDROCHLOROTHIAZIDE 12.5 MG CAP PO SCH (08:42)
[2019-08-03] MEDS: PRIMIDONE 50 MG TAB PO SCH (08:42)
--- NOTE | 2019-08-03 13:46 | P.PN ---
Subjective Progress Note Date: 08/03/19 Principal diagnosis: Acute exacerbation of chronic obstructive pulmonary disease. A 78-year-old female patient was Hospital as for worsening shortness of breath as the patient came into the ED complaining of dyspnea for the duration addition to cough that was quite productive. No reported chest pain. The patient is known to have COPD. She was smoking up to recently. She does not utilize home O2. Her last hospital physician for COPD exacerbation was in January 2019. At th at time the patient had some limited infiltration of the right lower lobe and she was hospitalized, treated and discharged home. Currently, the chest x-ray showing COPD with some right apical scarring. There is hyperinflation consistent with COPD and flattening of the diaphragms bilaterally. The white cell count was nonelevated. Normal renal function. Normal electrolytes. Normal troponin. BNP level is not elevated at 72. EKG showing a normal sinus rhythm with some left axis deviation. Previous echocardiogram from 2017 showed a preserved LV function with an ejection fraction of 55%. The patient is seen today 08/02/2019 in follow-up on the regular medical floor. She remains awake and alert in no acute distress. She is requiring 3 L/m per nasal cannula to maintain O2 saturation in the 90s. She's been afebrile. Hemodynamically stable. Sputum culture reveals no growth. White count 8.3. Hemoglobin 14.0. Creatinine 0.52. The patient is seen today 10/03/2019 in follow-up on the regular medical floor. She is currently resting comfortably in bed. Awake and alert in no acute distress. Sshe is maintaining O2 saturations in the 90s on 3 L/m per nasal cannula. She's afebrile. Hemodynamically stable. Sputum culture reveals no growth. blood culture positive for staph hominis. White count 7.3. Hemoglobin 14.6. Creatinine 0.56. Currently on ceftriaxone. Objective - Vital Signs Vital signs: Vital Signs Temp 96.9 F L 08/03/19 12:25 Pulse 76 08/03/19 12:25 Resp 17 08/03/19 12:25 BP 117/57 08/03/19 12:25 Pulse Ox 94 L 08/03/19 12:25 Intake & Output 08/02/19 08/03/19 08/03/19 18:59 06:59 18:59 Intake Total 600 Balance 600 Weight 51.256 kg Intake: Oral 600 Other: Voiding Method Toilet Toilet # Voids 3 3 - Exam GENERAL EXAM: 78-year-old female. Frail, cachectic. Alert, comfortable in no apparent distress. On 3 L/m per nasal cannula. HEAD: Normocephalic. EYES: Normal reaction of pupils, equal size. NOSE: Clear with pink turbinates. THROAT: No erythema or exudates. NECK: No masses, no JVD. CHEST: No chest wall deformity. LUNGS: Equal air entry with crackles in the right posterior base, end expiratory wheeze, diminished CVS: S1 and S2 normal with no audible murmur, regular rhythm. ABDOMEN: No hepatosplenomegaly, normal bowel sounds, no guarding or rigidity. SPINE: No scoliosis or deformity SKIN: No rashes CENTRAL NERVOUS SYSTEM: No focal deficits, tone is normal in all 4 extremities. EXTREMITIES: There is no peripheral edema. No clubbing, no cyanosis. Peripheral pulses are intact. - Labs CBC & Chem 7: 08/03/19 07:10 08/03/19 07:10 Labs: Abnormal Lab Results - Last 24 Hours (Table) 08/03/19 Range/Units 07:10 Carbon Dioxide 31 H (22-30) mmol/L BUN 27 H (7-17) mg/dL Total Protein 5.6 L (6.3-8.2) g/dL Albumin 3.3 L (3.5-5.0) g/dL Microbiology - Last 24 Hours (Table) 07/29/19 11:50 Blood Culture Gram Stain - Final Blood Blood Culture - Final Staph hominis sub sp. hominis Assessment and Plan Assessment: Impression: #1 Acute hypoxic respiratory failure secondary to an acute exacerbation of chron ic obstructive pulmonary disease #2 Chronic and ongoing tobacco dependence. #3 History of CVA with minimal left-sided residual weakness. Ambulates with a walker. Maintained on a combination of Plavix and aspirin. #4 Essential hypertension. #5 Degenerative joint disease. #6 Hyperlipidemia. #7 Hypothyroidism. #8 Cachexia. #9 Diverticular disease Plan: The patient was seen and evaluated by Dr. Esquivel. She may require home oxygen. Complete a prednisone burst and taper starting at 40 mg daily for 4 days. Continue DuoNeb inhalations. Generic Advair might work for her due to cost. jacey is again educated regarding the importance of complete smoking cessation. Follow-up in our office in 1-2 weeks' time. I, the cosigning physician, performed a history & physical examination of the patient. Lungs sounds with end expiratory wheeze, diminished. Maintaining good O2 saturations in the 90s on 3 L/m per nasal cannula. I discussed the assessment and plan of care with my nurse practitioner, Hayley Mendoza. I attest to the above note as dictated by her.
--- NOTE | 2019-08-03 14:04 | P.PN ---
Subjective Progress Note Date: 08/03/19 This is a 78-year-old female patient who presented with complaints of increased shortness of breath. Patient reports that shortness breath started about 4 days ago and progressively increased with cough. Patient reports that cough is productive. Patient denies any fevers or chest pain. Patient does have past medical history of COPD, pneumonia, CVA, hypertension, hypothyroidism, heart murmur, diverticulitis, arthritis, depression and nicotine dependence. Chest x- ray completed showing findings of advanced COPD with similar right apical scarring. The mediastinum is suboptimally elevated given patient rotation. EKG showing normal sinus rhythm left axis deviation. Troponin negative. BNP 72. At this time patient still complaining of shortness breath cough. Patient started on Solu-Medrol pulmonary services have been consulted. Patient denies chest pain. Denies nausea vomiting diarrhea. Patient denies any urinary burning or frequency. On 07/30/2019 patient was seen and examined on the medical floor she is alert and oriented 3 in no apparent distress shortness of breath improved somewhat she is still complaining of some cough otherwise she denies any complaints there is no fever or chills no headache or dizziness no chest pain no nausea or vomiting no abdominal pain no diarrhea and no urinary symptoms On 07/31/2019 patient was seen and examined on the medical floor she is alert and oriented 3 in no apparent distress she is still complaining of cough and shortness of breath otherwise she denies any complaints there is no fever or chills no headache or dizziness no chest pain no nausea or vomiting no abdominal pain no diarrhea no burning was urination no frequency or urgency and no hematuria. Today patient has positive blood culture for gram-positive cocci, IV vancomycin pharmacy to dose was added to her regimen until further details are available regarding blood culture results 08/01/2019 patient's alert and oriented 3. Patient does report some improvement with shortness of breath. Patient reports that she is still having some shortness of breath with activity remains on 3 L nasal cannula. Blood culture growing coagulase-negative staph. At this time patient denies chest pain. Patient denies nausea vomiting or diarrhea. Patient denies any urinary f requency or burning. On 08/02/2019 patient's alert and oriented 3. Patient is still having some shortness of breath with activity. Patient does not feel quite ready to be discharged home. Will order Mucinex. Discussed case with pulmonary team. Blood culture growing staph hominis sub sp.. hominis contamination Vanco DC'd. Patient denies chest pain. Patient denies nausea vomiting or diarrhea. Patient denies any urinary burning or frequency. Patient will likely need home O2 upon discharge 08/03/2019 patient's alert and oriented 3. Patient does not feel quite ready to be discharged home likely tomorrow. Patient will go home on home O2 per pulmonary. Physical therapy consulted. At this time patient denies chest pain or shortness breath. Patient denies nausea vomiting or diarrhea. Patient denies any urinary burning or frequency. Objective - Vital Signs Vital signs: Vital Signs Temp 96.9 F L 08/03/19 12:25 Pulse 76 08/03/19 12:25 Resp 17 08/03/19 12:25 BP 117/57 08/03/19 12:25 Pulse Ox 94 L 08/03/19 12:25 Intake & Output 08/02/19 08/03/19 08/03/19 18:59 06:59 18:59 Intake Total 600 Balance 600 Weight 51.256 kg Intake: Oral 600 Other: Voiding Method Toilet Toilet # Voids 3 3 - Exam In general patient is alert and oriented 3 in no apparent distress Head normocephalic and atraumatic Neck supple no JVD no goiter Lungs diminished bilaterally with expiratory wheezing Heart regular rate and rhythm S1-S2, no rub or gallop Abdomen is soft nontender nondistended positive bowel sounds no hepatospleno megaly Extremities no edema no cyanosis or clubbing Neuro no gross focal neurological deficit - Labs CBC & Chem 7: 08/03/19 07:10 08/03/19 07:10 Labs: Abnormal Lab Results - Last 24 Hours (Table) 08/03/19 Range/Units 07:10 Carbon Dioxide 31 H (22-30) mmol/L BUN 27 H (7-17) mg/dL Total Protein 5.6 L (6.3-8.2) g/dL Albumin 3.3 L (3.5-5.0) g/dL Microbiology - Last 24 Hours (Table) 07/29/19 11:50 Blood Culture Gram Stain - Final Blood Blood Culture - Final Staph hominis sub sp. hominis Assessment and Plan Assessment: 1. Increased shortness breath related to COPD exacerbation. Chest x-ray completed showing findings of advanced COPD with similar right apical scarring. Mediastinum is suboptimally evaluated given patient rotation. Coronary services have been consulted. Sputum culture ordered. Patient started on DuoNeb breathing treatments and solumedrol. Rocephen for antibiotic 2. History of COPD 3. History of pneumonia 4. History of CVA. Maintained on Plavix and aspirin 5. History of essential hypertension 6. History of hypothyroidism. Synthroid resumed 7. History of diverticulitis 8. History of osteoarthritis 9. History of nicotine dependence. Patient educated greater than 3 minutes on smoking cessation. nicotine patch order 10. History of essential tremors. Patient maintained on primidone. follows with Dr. Ross 11. Positive blood culture. Culture growing coagulase-negative staph. Patient maintained on vancomycin. Blood culture contamination Vanco DC'd DVT prophylaxis Lovenox. GI prophylaxis Protonix Physical therapy consulted I performed an examination of the patient and discussed their management with the Nurse Practitioner. I have reviewed the Nurse Practitioner's notes and agree with the documented findings and plan of care
[2019-08-03] MEDS: methylPREDNISolone SOD SUCCI 40 MG/ML 1 ML VIAL IV SCH ×2 (16:58→23:30)
[2019-08-03] MEDS: CLOPIDOGREL 75 MG TAB PO SCH (20:22)
[2019-08-03] MEDS: HYDROcodone/APAP 10-325MG 1 EACH TAB PO SCH (20:23)
[2019-08-03] MEDS: ZOLPIDEM 5 MG TAB PO PRN (22:06)
[2019-08-04] MEDS: LEVOTHYROXINE 50 MCG TAB PO SCH (05:17)
[2019-08-04 08:53] LABS: Basophils # (A) 0.1 k/uL (0-0.2); Basophils % (A) 1 %; Eosinophils % (A) 1 %; HCT 44.7 % (34.0-46.0); HGB 14.5 gm/dL (11.4-16.0); Lymphocytes # (A) 1.2 k/uL (1.0-4.8); Lymphocytes % (A) 15 %; MCH 31.3 pg (25.0-35.0); MCHC 32.5 g/dL (31.0-37.0); MCV 96.3 fL (80.0-100.0); Monocytes # (A) 0.6 k/uL (0-1.0); Monocytes % (A) 7 %; Neutrophils # (A) 6.3 k/uL (1.3-7.7); Neutrophils % (A) 76 %; Platelet Count 274 k/uL (150-450); RBC 4.64 m/uL (3.80-5.40); RDW 13.5 % (11.5-15.5); WBC 8.4 k/uL (3.8-10.6)
[2019-08-04] MEDS: IPRATROPIUM-ALBUTEROL 3 ML NEB INHALATION SCH ×2 (08:55→13:28)
[2019-08-04] MEDS: BUDESONIDE 0.5 MG/2 ML NEBU INHALATION SCH (08:55)
[2019-08-04] MEDS ORDERED: predniSONE 20 MG TAB PO SCH ×2 (09:00)
[2019-08-04 09:13] LABS: ALT 36 U/L (9-52); AST 23 U/L (14-36); African American GFR (CKD) >90 (>60 ml/min/1.73 sqM); Albumin 3.6 g/dL (3.5-5.0); Alkaline Phosphatase 61 U/L (38-126); Anion Gap 7 mmol/L; Blood Urea Nitrogen 24 mg/dL (7-17); Calcium 9.6 mg/dL (8.4-10.2); Carbon Dioxide 28 mmol/L (22-30); Chloride 102 mmol/L (98-107); Glucose 107 mg/dL (74-99); Non-African American GFR(CKD) 88 (>60 ml/min/1.73 sqM); Potassium 4.4 mmol/L (3.5-5.1); Sodium 137 mmol/L (137-145); Total Bilirubin 0.5 mg/dL (0.2-1.3); Total Protein 5.8 g/dL (6.3-8.2)
[2019-08-04] MEDS: ENOXAPARIN 40 MG/0.4 ML SYRINGE SQ SCH (09:15)
[2019-08-04] MEDS: PRIMIDONE 50 MG TAB PO SCH (09:15)
[2019-08-04] MEDS: BACLOFEN 10 MG TAB PO SCH (09:15)
[2019-08-04] MEDS: HYDROCHLOROTHIAZIDE 12.5 MG CAP PO SCH (09:15)
[2019-08-04] MEDS: ASPIRIN 325 MG TAB PO SCH (09:15)
[2019-08-04] MEDS: methylPREDNISolone SOD SUCCI 40 MG/ML 1 ML VIAL IV SCH (09:15)
[2019-08-04] MEDS: PANTOPRAZOLE 40 MG TABLET PO SCH (09:15)
[2019-08-04] MEDS: NICOTINE 14MG/24HR PATCH TRANSDERM SCH (09:16)
--- NOTE | 2019-08-04 11:18 | P.PN ---
Subjective Progress Note Date: 08/04/19 Principal diagnosis: Acute exacerbation of chronic obstructive pulmonary disease. A 78-year-old female patient was Hospital as for worsening shortness of breath as the patient came into the ED complaining of dyspnea for the duration addition to cough that was quite productive. No reported chest pain. The patient is known to have COPD. She was smoking up to recently. She does not utilize home O2. Her last hospital physician for COPD exacerbation was in January 2019. At th at time the patient had some limited infiltration of the right lower lobe and she was hospitalized, treated and discharged home. Currently, the chest x-ray showing COPD with some right apical scarring. There is hyperinflation consistent with COPD and flattening of the diaphragms bilaterally. The white cell count was nonelevated. Normal renal function. Normal electrolytes. Normal troponin. BNP level is not elevated at 72. EKG showing a normal sinus rhythm with some left axis deviation. Previous echocardiogram from 2017 showed a preserved LV function with an ejection fraction of 55%. The patient is seen today 08/02/2019 in follow-up on the regular medical floor. She remains awake and alert in no acute distress. She is requiring 3 L/m per nasal cannula to maintain O2 saturation in the 90s. She's been afebrile. Hemodynamically stable. Sputum culture reveals no growth. White count 8.3. Hemoglobin 14.0. Creatinine 0.52. The patient is seen today 10/03/2019 in follow-up on the regular medical floor. She is currently resting comfortably in bed. Awake and alert in no acute distress. Sshe is maintaining O2 saturations in the 90s on 3 L/m per nasal cannula. She's afebrile. Hemodynamically stable. Sputum culture reveals no growth. blood culture positive for staph hominis. White count 7.3. Hemoglobin 14.6. Creatinine 0.56. Currently on ceftriaxone. The patient is seen today 08/04/2019 in follow-up on the regular medical floor. She is awake and alert in no acute distress. Resting quite comfortably in bed. She is working with physical therapy and has been up ambulating in the hallway and doing quite well. Will most likely need home oxygen. White count 8.4. Hemoglobin 14.5. Creatinine 0.58. Objective - Vital Signs Vital signs: Vital Signs Temp 98 F 08/04/19 04:20 Pulse 88 08/04/19 08:55 Resp 20 08/04/19 04:20 BP 107/64 08/04/19 04:20 Pulse Ox 93 L 08/04/19 11:04 Intake & Output 08/03/19 08/04/19 08/04/19 18:59 06:59 18:59 Intake Total 200 240 Balance 200 240 Intake: Oral 200 240 Other: Voiding Method Toilet Toilet # Voids 3 1 # Bowel Movements 1 - Exam GENERAL EXAM: 78-year-old female. Frail, cachectic. Alert, comfortable in no apparent distress. On 3 L/m per nasal cannula. HEAD: Normocephalic. EYES: Normal reaction of pupils, equal size. NOSE: Clear with pink turbinates. THROAT: No erythema or exudates. NECK: No masses, no JVD. CHEST: No chest wall deformity. LUNGS: Equal air entry with crackles in the right posterior base, end expiratory wheeze, diminished CVS: S1 and S2 normal with no audible murmur, regular rhythm. ABDOMEN: No hepatosplenomegaly, normal bowel sounds, no guarding or rigidity. SPINE: No scoliosis or deformity SKIN: No rashes CENTRAL NERVOUS SYSTEM: No focal deficits, tone is normal in all 4 extremities. EXTREMITIES: There is no peripheral edema. No clubbing, no cyanosis. Peripheral pulses are intact. - Labs CBC & Chem 7: 08/04/19 08:14 08/04/19 08:14 Labs: Abnormal Lab Results - Last 24 Hours (Table) 08/04/19 Range/Units 08:14 BUN 24 H (7-17) mg/dL Glucose 107 H (74-99) mg/dL Total Protein 5.8 L (6.3-8.2) g/dL Microbiology - Last 24 Hours (Table) 07/29/19 11:50 Blood Culture Gram Stain - Final Blood Blood Culture - Final Staph hominis sub sp. hominis Assessment and Plan Assessment: Impression: #1 Acute hypoxic respiratory failure secondary to an acute exacerbation of chronic obstructive pulmonary disease. #2 Chronic and ongoing tobacco dependence. #3 History of CVA with minimal left-sided residual weakness. Ambulates with a walker. Maintained on a combination of Plavix and aspirin. #4 Essential hypertension. #5 Degenerative joint disease. #6 Hyperlipidemia. #7 Hypothyroidism. #8 Cachexia. #9 Diverticular disease Plan: The patient was seen and evaluated by Dr. Esquivel. Cleared for discharge from pulmonary standpoint. She will require home oxygen. Continue DuoNeb inhalations. Generic Advair might work for her due to cost. She is again educated regarding the importance of complete smoking cessation. Follow-up in our office in 1-2 weeks' time. I, the cosigning physician, performed a history & physical examination of the patient. Lungs sounds with end expiratory wheeze, diminished. Maintaining good O2 saturations in the 90s on 3 L/m per nasal cannula. I discussed the assessment and plan of care with my nurse practitioner, Hayley Mendoza. I attest to the above note as dictated by her.
[2019-08-04 12:24] VITALS: BP 122/72; RESP 18; TEMP 98.1
--- NOTE | 2019-08-04 13:08 | P.DS ---
Providers Date of admission: 07/29/19 13:25 Expected date of discharge: 08/04/19 Attending physician: Kyleigh Garcia Consults: 07/29/19 13:25 Consult Physician Routine Consulting Provider: Vikash Culver Consult Reason/Comments: COPD Do you want consulting provider notified?: Yes Primary care physician: Kyleigh Radha [facility] Course: Discharge diagnosis 1. Increased shortness breath related to COPD exacerbation. Chest x-ray completed showing findings of advanced COPD with similar right apical scarring. Mediastinum is suboptimally evaluated given patient rotation. Coronary services have been consulted. Sputum culture ordered. Patient started on DuoNeb breathing treatments and solumedrol. Rocephen for antibiotic. Patient has been there for discharge from pulmonary standpoint. Discussed case with Hayley. 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 Patient will be DC'd with home O2 2. History of COPD 3. History of pneumonia 4. History of CVA. Maintained on Plavix and aspirin 5. History of essential hypertension 6. History of hypothyroidism. Synthroid resumed 7. History of diverticulitis 8. History of osteoarthritis 9. History of nicotine dependence. Patient educated greater than 3 minutes on smoking cessation. nicotine patch order. Patient declined nicotine patch upon discharge 10. History of essential tremors. Patient maintained on primidone. follows with Dr. Ross 11. Positive blood culture. Culture growing coagulase-negative staph. Patient maintained on vancomycin. Blood culture contamination [facility] DC'd Hospital course This is a 78-year-old female patient who presented with complaints of increased shortness of breath. Patient reports that shortness breath started about 4 days ago and progressively increased with cough. Patient reports that cough is productive. Patient denies any fevers or chest pain. Patient does have past medical history of COPD, pneumonia, CVA, hypertension, hypothyroidism, heart murmur, diverticulitis, arthritis, depression and nicotine dependence. Chest x- ray completed showing findings of advanced COPD with similar right apical scarring. The mediastinum is suboptimally elevated given patient rotation. EKG showing normal sinus rhythm left axis deviation. Troponin negative. BNP 72. At this time patient still complaining of shortness breath cough. Patient started on Solu-Medrol pulmonary services have been consulted. Patient denies chest pain. Denies nausea vomiting diarrhea. Patient denies any urinary burning or frequency. On 07/30/2019 patient was seen and examined on the medical floor she is alert and oriented 3 in no apparent distress shortness of breath improved somewhat she is still complaining of some cough otherwise she denies any complaints there is no fever or chills no headache or dizziness no chest pain no nausea or vomiting no abdominal pain no diarrhea and no urinary symptoms On 07/31/2019 patient was seen and examined on the medical floor she is alert and oriented 3 in no apparent distress she is still complaining of cough and shortness of breath otherwise she denies any complaints there is no fever or chills no headache or dizziness no chest pain no nausea or vomiting no abdominal pain no diarrhea no burning was urination no frequency or urgency and no hematuria. Today patient has positive blood culture for gram-positive cocci, IV vancomycin pharmacy to dose was added to her regimen until further details are available regarding blood culture results 08/01/2019 patient's alert and oriented 3. Patient does report some improvement with shortness of breath. Patient reports that she is still having some shortness of breath with activity remains on 3 L nasal cannula. Blood culture growing coagulase-negative staph. At this time patient denies chest pain. Patient denies nausea vomiting or diarrhea. Patient denies any urinary frequency or burning. On 08/02/2019 patient's alert and oriented 3. Patient is still having some shortness of breath with activity. Patient does not feel quite ready to be discharged home. Will order Mucinex. Discussed case with pulmonary team. Blood culture growing staph hominis sub sp.. hominis contamination [facility] DC'd. Patient denies chest pain. Patient denies nausea vomiting or diarrhea. Patient denies any urinary burning or frequency. Patient will likely need home O2 upon discharge 08/03/2019 patient's alert and oriented 3. Patient does not feel quite ready to be discharged home likely tomorrow. Patient will go home on home O2 per pulmonary. Physical therapy consulted. At this time patient denies chest pain or shortness breath. Patient denies nausea vomiting or diarrhea. Patient denies any urinary burning or frequency. On 08/04/2019 patient's alert and oriented 3. Patient feels ready to be discharged home today. Patient has been cleared by pulmonary services no need for antibiotics per pulmonary team. Patient does have known ALLERGY to prednisone will be DC'd on no steroids at this time. Patient to follow-up outpatient with pulmonary services. Patient also advised the importance of smoking cessation. Patient denies chest pain or shortness breath. Patient denies nausea vomiting or diarrhea. Patient denies any urinary burning or frequency. I performed an examination of the patient and discussed their management with the Nurse Practitioner. I have reviewed the Nurse Practitioner's notes and a gree with the documented findings and plan of care Patient Condition at Discharge: Stable Plan - Discharge Summary Discharge Rx Participant: No New Discharge Prescriptions: New guaiFENesin [Mucinex] 600 mg PO Q12HR PRN 7 Days #14 tablet.er PRN Reason: Cough Continue HYDROcodone/APAP 10-325MG [Fruita 10-325] 1 tab PO HS Clopidogrel Bisulfate [Plavix] 75 mg PO HS Levothyroxine Sodium [Synthroid] 50 mcg PO DAILY Aspirin 325 mg PO DAILY tab Hydrochlorothiazide 12.5 mg PO DAILY Primidone [Mysoline] 50 mg PO DAILY Baclofen [Lioresal] 10 mg PO BID Discharge Medication List Clopidogrel Bisulfate [Plavix] 75 mg PO HS 01/29/15 [History] HYDROcodone/APAP 10-325MG [Fruita 10-325] 1 tab PO HS 01/29/15 [History] Levothyroxine Sodium [Synthroid] 50 mcg PO DAILY 04/03/16 [History] Aspirin 325 mg PO DAILY tab 09/29/17 [Rx] Hydrochlorothiazide 12.5 mg PO DAILY 08/10/18 [History] Primidone [Mysoline] 50 mg PO DAILY 01/26/19 [History] Baclofen [Lioresal] 10 mg PO BID 07/29/19 [History] guaiFENesin [Mucinex] 600 mg PO Q12HR PRN 7 Days #14 tablet.er 08/04/19 [Rx] Follow up Appointment(s)/Referral(s): Hayley Mendoza NPC [Nurse Practitioner] - 1 Week Kyleigh Garcia MD [Primary Care Provider] - 1-2 days Activity/Diet/Wound Care/Special Instructions: Will be DC'd home with home O2. [facility] O[facility] orders sent to [facility] per case management Activity as tolerated Diet heart healthy Discharge Disposition: HOME WITH HOME HEALTH SERVICES
[2019-08-04 13:44] VITALS: PULSE 84
== END 2019-08-04 14:50 | disposition home or self-care (01) | DRG 190 ==
LOC: EC 11:06 → 3NMEDONC 13:25
PROVIDERS: ADMIT Internal Medicine; ATTEND Internal Medicine
DX: J44.1 Chronic obstructive pulmonary disease with (acute) exacerbation (principal); J96.01 Acute respiratory failure with hypoxia; R64 Cachexia; E44.0 Moderate protein-calorie malnutrition; Z68.1 Body mass index [BMI] 19.9 or less, adult; I69.954 Hemiplegia and hemiparesis following unspecified cerebrovascular disease affecting left non-dominant side; E03.9 Hypothyroidism, unspecified; E78.5 Hyperlipidemia, unspecified; F17.200 Nicotine dependence, unspecified, uncomplicated; F32.9 Major depressive disorder, single episode, unspecified; G25.0 Essential tremor; I10 Essential (primary) hypertension; K57.90 Diverticulosis of intestine, part unspecified, without perforation or abscess without bleeding; M19.90 Unspecified osteoarthritis, unspecified site; R01.1 Cardiac murmur, unspecified; J34.2 Deviated nasal septum; Z79.82 Long term (current) use of aspirin; Z79.890 Hormone replacement therapy; Z79.899 Other long term (current) drug therapy; Z79.891 Long term (current) use of opiate analgesic; Z88.8 Allergy status to other drugs, medicaments and biological substances; Z87.01 Personal history of pneumonia (recurrent); Z90.49 Acquired absence of other specified parts of digestive tract
CPT/HCPCS: 36415; 71046; 80053; 80202; 83605; 83735; 83880; 84484; 85025; 85610; 85730; 87040; 87070; 87077; 87186; 87205; 93005; 94640; 94644; 94760; 96361; 96374; 99291

== ENCOUNTER → 2020-08-13 | Outpatient (CLI) | payer MEDICARE ==
--- NOTE | 2020-08-13 15:07 | US ---
EXAMINATION TYPE: US venous doppler duplex LE DATE OF EXAM: 08/13/2020 2:48 PM COMPARISON: NONE CLINICAL HISTORY: 79-year-old female R22.41 SWELLING OF RT LOWER LIMB,R22.42 SWELLING LT LOWER LI. Ed ashley bilateral legs SIDE PERFORMED: bilateral TECHNIQUE: The lower extremity deep venous system is examined utilizing real time linear array sonog luis enrique with graded compression, doppler sonography and color-flow sonography. FINDINGS: VESSELS IMAGED: External Iliac Vein (EIV) Common Femoral Vein Deep Femoral Vein Greater Saphenous Vein * Femoral Vein Popliteal Vein Small Saphenous Vein * Proximal Calf Veins (* superficial vessels) Right Leg: no evidence of DVT Left Leg: no evidence of DVT IMPRESSION: No evidence for DVT within the bilateral lower extremities imaged from the groin to the upper calves.
== END | disposition home or self-care (01) ==
LOC: RADUSWWP 14:24
PROVIDERS: ATTEND Internal Medicine
DX: R22.43 Localized swelling, mass and lump, lower limb, bilateral (principal)
CPT/HCPCS: 93970

== ENCOUNTER 2020-08-25 17:26 | Emergency (ER) | payer MEDICARE, OTHER ==
[2020-08-25 17:36] VITALS: TEMP 98
[2020-08-25] MEDS ORDERED: SODIUM CHLORIDE 0.9% 1,000 ML IV STA ×2 (18:07)
[2020-08-25 18:24] LABS: Basophils # (A) 0.1 k/uL (0-0.2); Basophils % (A) 1 %; Eosinophils # (A) 0.3 k/uL (0-0.7); Eosinophils % (A) 3 %; HCT 42.5 % (34.0-46.0); HGB 13.9 gm/dL (11.4-16.0); Lymphocytes # (A) 1.4 k/uL (1.0-4.8); Lymphocytes % (A) 14 %; MCH 30.8 pg (25.0-35.0); MCHC 32.6 g/dL (31.0-37.0); MCV 94.5 fL (80.0-100.0); Mean Platelet Volume 7.3; Monocytes # (A) 0.9 k/uL (0-1.0); Monocytes % (A) 9 %; Neutrophils # (A) 7.2 k/uL (1.3-7.7); Neutrophils % (A) 72 %; Platelet Count 452 k/uL (150-450); RBC 4.49 m/uL (3.80-5.40); RDW 12.7 % (11.5-15.5)
[2020-08-25 18:39] LABS: ALT 17 U/L (4-34); AST 43 U/L (14-36); African American GFR (CKD) >90 (>60 ml/min/1.73 sqM); Albumin 3.8 g/dL (3.5-5.0); Alkaline Phosphatase 77 U/L (38-126); Amylase 41 U/L (30-110); Anion Gap 6 mmol/L; Blood Urea Nitrogen 25 mg/dL (7-17); Calcium 9.6 mg/dL (8.4-10.2); Carbon Dioxide 30 mmol/L (22-30); Chloride 97 mmol/L (98-107); Glucose 91 mg/dL (74-99); Non-African American GFR(CKD) 84 (>60 ml/min/1.73 sqM); Sodium 133 mmol/L (137-145); Total Bilirubin 0.7 mg/dL (0.2-1.3); Total Protein 6.4 g/dL (6.3-8.2)
[2020-08-25 18:44] LABS: Potassium 4.7 mmol/L (3.5-5.1)
--- NOTE | 2020-08-25 19:06 | ED ---
Nausea/Vomiting/Diarrhea HPI - General Source: patient, RN notes reviewed, old records reviewed Mode of arrival: ambulatory Limitations: no limitations <Fernanda Lucas - Last Filed: 08/25/20 19:21> <Gordon Ortiz - Last Filed: 08/25/20 21:05> - General Chief complaint: Nausea/Vomiting/Diarrhea Stated complaint: dehydrated Time Seen by Provider: 08/25/20 17:38 - History of Present Illness Initial comments: Patient is a 79-year-old female who presents the emergency department stating she landed diarrhea for the past 1.5 weeks. Patient reports that she only has been able to eat ice and drink some water unable to have any appetite or want to eat anything more as it causes the diarrhea. She has had no recent vomiting. She complains of nausea. She denies fevers. She reports that her abdominal pain occurred right before she has to have a bowel movement. She states she's noticed no blood in her stools. (Fernanda Lucas) - Related Data Home Medications Medication Instructions Recorded Confirmed Clopidogrel Bisulfate [Plavix] 75 mg PO HS 01/29/15 07/29/19 HYDROcodone/APAP 10-325MG [[place] 1 tab PO HS 01/29/15 07/29/19 10-325] Levothyroxine Sodium [Synthroid] 50 mcg PO DAILY 04/03/16 07/29/19 hydroCHLOROthiazide 12.5 mg PO DAILY 08/10/18 07/29/19 Primidone [Mysoline] 50 mg PO DAILY 01/26/19 07/29/19 Baclofen [Lioresal] 10 mg PO BID 07/29/19 07/29/19 Previous Rx's Medication Instructions Recorded Aspirin 325 mg PO DAILY tab 09/29/17 Ipratropium-Albuterol Nebulize 3 ml INHALATION RT-Q2H PRN 08/04/19 [Duoneb 0.5 mg-3 mg/3 ml Soln] ampul.neb Ipratropium-Albuterol Nebulize 3 ml INHALATION RT-QID ampul.neb 08/04/19 [Duoneb 0.5 mg-3 mg/3 ml Soln] guaiFENesin [Mucinex] 600 mg PO Q12HR PRN 7 Days #14 08/04/19 tablet.er Allergies Allergy/AdvReac Type Severity Reaction Status Date / Time cimetidine [From Tagamet] Allergy Rash/Hives Verified 08/25/20 17:36 cimetidine HCl [From Tagamet] Allergy Rash/Hives Verified 08/25/20 17:36 prednisone Allergy Swelling Verified 08/25/20 17:36 Review of Systems ROS Other: All systems not noted in ROS Statement are negative. <Fernanda Lucas - Last Filed: 08/25/20 19:21> ROS Other: All systems not noted in ROS Statement are negative. <RituelvinjoseGordon - Last Filed: 08/25/20 21:05> ROS Statement: Those systems with pertinent positive or pertinent negative responses have been documented in the HPI. Past Medical History Past Medical History: COPD, CVA/TIA, Hypertension, Thyroid Disorder Additional Past Medical History / Comment(s): Diverticular disease, COPD, previous history of CVA/TIA, hypertension, hypothyroidism, depression, nasal septal deviation History of Any Multi-Drug Resistant Organisms: None Reported Past Surgical History: Appendectomy Additional Past Surgical History / Comment(s): nasal septum Past Anesthesia/Blood Transfusion Reactions: No Reported Reaction Past Psychological History: Depression Smoking Status: Current every day smoker Past Alcohol Use History: None Reported Past Drug Use History: None Reported - Past Family History Mother Family Medical History: No Reported History Father Family Medical History: Unable to Obtain <Fernanda Lucas - Last Filed: 08/25/20 19:21> General Exam Limitations: no limitations General appearance: alert, in no apparent distress Head exam: Present: atraumatic, normocephalic, normal inspection Eye exam: Present: normal appearance, PERRL, EOMI. Absent: scleral icterus, conjunctival injection, periorbital swelling ENT exam: Present: mucous membranes dry, mucous membranes moist. Absent: normal exam Neck exam: Present: normal inspection. Absent: tenderness, meningismus, lymphadenopathy Respiratory exam: Present: normal lung sounds bilaterally. Absent: respiratory distress, wheezes, rales, rhonchi, stridor Cardiovascular Exam: Present: regular rate, normal rhythm, normal heart sounds. Absent: systolic murmur, diastolic murmur, rubs, gallop, clicks GI/Abdominal exam: Present: soft, normal bowel sounds. Absent: distended, tenderness, guarding, rebound, rigid Extremities exam: Present: normal inspection, full ROM, normal capillary refill. Absent: tenderness, pedal edema, joint swelling, calf tenderness Back exam: Present: normal inspection Neurological exam: Present: alert, oriented X3, CN II-XII intact Psychiatric exam: Present: normal affect, normal mood Skin exam: Present: warm, dry, intact, normal color. Absent: rash <Fernanda Lucas - Last Filed: 08/25/20 19:21> - General Exam Comments Initial Comments: 79-year-old female. Alert and oriented 3. No significant distress. Patient has tremor. (Fernanda Lucas) Course <Gordon Ortiz - Last Filed: 08/25/20 21:05> Vital Signs 08/25/20 17:33 Temperature 98.0 F Pulse Rate 101 H Respiratory 20 Rate Blood Pressure 102/67 O2 Sat by Pulse 95 Oximetry - Reevaluation(s) Reevaluation #1: 08/25/20 20:52 Patient was endorsed to me by ED KAROLINA Lucas (secondary to end of her shift) with the patient's UA still pending. Patient's UA and labs were reviewed and are all fairly unremarkable. Patient's abdomen is currently soft and nontender on exam. Patient denies having any abdominal pain. Patient is afebrile and without leukocytosis. Patient has not been able to provide a stool specimen while in the ED. I suspect that the patient's diarrhea is likely viral in etiology. Patient and male family member are aware of the patient's test results, and patient feels comfortable going home at this time. She was counseled about diarrhea. She was instructed to drink plenty of water/fluids to stay hydrated. She was clearly explained return and follow-up instructions. She was instructed to follow up closely with her primary care provider. She feels comfortable with this plan. (Gordon Ortiz) Medical Decision Making - Lab Data Result diagrams: 08/25/20 18:07 08/25/20 18:07 <Fernanda Lucas - Last Filed: 08/25/20 19:21> - Lab Data Result diagrams: 08/25/20 18:07 08/25/20 18:07 <Gordon Ortiz - Last Filed: 08/25/20 21:05> - Medical Decision Making 79-year-old female presents emergency room today for concern for dehydration and diarrhea for the past 1.5 weeks. Patient reports no bloody stool. Patient has not been on antibiotics. Patient's labs reviewed and unremarkable. She is given a liter bolus. Patient's urine sample is pending case signed to Dr. Vickie morin at 7:30 PM. (Fernanda Lucas) - Lab Data Lab Results 08/25/20 08/25/20 08/25/20 Range/Units 18:07 18:07 18:07 WBC 10.0 (3.8-10.6) k/uL RBC 4.49 (3.80-5.40) m/uL Hgb 13.9 (11.4-16.0) gm/dL Hct 42.5 (34.0-46.0) % MCV 94.5 (80.0-100.0) fL MCH 30.8 (25.0-35.0) pg MCHC 32.6 (31.0-37.0) g/dL RDW 12.7 (11.5-15.5) % Plt Count 452 H (150-450) k/uL Neutrophils % 72 % Lymphocytes % 14 % Monocytes % 9 % Eosinophils % 3 % Basophils % 1 % Neutrophils # 7.2 (1.3-7.7) k/uL Lymphocytes # 1.4 (1.0-4.8) k/uL Monocytes # 0.9 (0-1.0) k/uL Eosinophils # 0.3 (0-0.7) k/uL Basophils # 0.1 (0-0.2) k/uL Sodium 133 L (137-145) mmol/L Potassium 4.7 (3.5-5.1) mmol/L Chloride 97 L (98-107) mmol/L Carbon Dioxide 30 (22-30) mmol/L Anion Gap 6 mmol/L BUN 25 H (7-17) mg/dL Creatinine 0.65 (0.52-1.04) mg/dL Est GFR (CKD-EPI)AfAm >90 (>60 ml/min/1.73 sqM) Est GFR (CKD-EPI)NonAf 84 (>60 ml/min/1.73 sqM) Glucose 91 (74-99) mg/dL Plasma Lactic Acid [place] (0.7-2.0) mmol/L Calcium 9.6 (8.4-10.2) mg/dL Total Bilirubin 0.7 (0.2-1.3) mg/dL AST 43 H (14-36) U/L ALT 17 (4-34) U/L Alkaline Phosphatase 77 (38-126) U/L Total Protein 6.4 (6.3-8.2) g/dL Albumin 3.8 (3.5-5.0) g/dL Amylase 41 (30-110) U/L Lipase 69 (23-300) U/L Urine Color Yellow Urine Appearance Clear (Clear) Urine pH 6.0 (5.0-8.0) Ur Specific [place] 1.012 (1.001-1.035) Urine Protein Negative (Negative) Urine Glucose (UA) Negative (Negative) Urine Ketones Negative (Negative) Urine Blood Trace H (Negative) Urine Nitrite Negative (Negative) Urine Bilirubin Negative (Negative) Urine Urobilinogen <2.0 (<2.0) mg/dL Ur Leukocyte Esterase Negative (Negative) Urine RBC 1 (0-5) /hpf Urine WBC 1 (0-5) /hpf Ur Squamous Epith Cells 1 (0-4) /hpf Urine Bacteria Rare H (None) /hpf Urine Mucus Rare H (None) /hpf 08/25/20 Range/Units 18:07 WBC (3.8-10.6) k/uL RBC (3.80-5.40) m/uL Hgb (11.4-16.0) gm/dL Hct (34.0-46.0) % MCV (80.0-100.0) fL MCH (25.0-35.0) pg MCHC (31.0-37.0) g/dL RDW (11.5-15.5) % Plt Count (150-450) k/uL Neutrophils % % Lymphocytes % % Monocytes % % Eosinophils % % Basophils % % Neutrophils # (1.3-7.7) k/uL Lymphocytes # (1.0-4.8) k/uL Monocytes # (0-1.0) k/uL Eosinophils # (0-0.7) k/uL Basophils # (0-0.2) k/uL Sodium (137-145) mmol/L Potassium (3.5-5.1) mmol/L Chloride (98-107) mmol/L Carbon Dioxide (22-30) mmol/L Anion Gap mmol/L BUN (7-17) mg/dL Creatinine (0.52-1.04) mg/dL Est GFR (CKD-EPI)AfAm (>60 ml/min/1.73 sqM) Est GFR (CKD-EPI)NonAf (>60 ml/min/1.73 sqM) Glucose (74-99) mg/dL Plasma Lactic Acid [place] 1.7 (0.7-2.0) mmol/L Calcium (8.4-10.2) mg/dL Total Bilirubin (0.2-1.3) mg/dL AST (14-36) U/L ALT (4-34) U/L Alkaline Phosphatase (38-126) U/L Total Protein (6.3-8.2) g/dL Albumin (3.5-5.0) g/dL Amylase (30-110) U/L Lipase (23-300) U/L Urine Color Urine Appearance (Clear) Urine pH (5.0-8.0) Ur Specific [place] (1.001-1.035) Urine Protein (Negative) Urine Glucose (UA) (Negative) Urine Ketones (Negative) Urine Blood (Negative) Urine Nitrite (Negative) Urine Bilirubin (Negative) Urine Urobilinogen (<2.0) mg/dL Ur Leukocyte Esterase (Negative) Urine RBC (0-5) /hpf Urine WBC (0-5) /hpf Ur Squamous Epith Cells (0-4) /hpf Urine Bacteria (None) /hpf Urine Mucus (None) /hpf Disposition <Fernanda Lucas - Last Filed: 08/25/20 19:21> Is patient prescribed a controlled substance at d/c from ED?: No Time of Disposition: 20:54 <Gordon Ortiz - Last Filed: 08/25/20 21:05> Clinical Impression: Diarrhea Disposition: HOME SELF-CARE Condition: Stable Instructions (If sedation given, give patient instructions): Acute Diarrhea (ED) Additional Instructions: Return to the ER immediately should you develop increased diarrhea, bloody diarrhea, any significant pain, abdominal pain, a fever, shortness of breath, feeling dizzy or faint, or new or worsening symptoms. Follow up closely with your primary care provider. Referrals: Kyleigh Garcia MD [Primary Care Provider] - 1-2 days
[2020-08-25 19:40] LABS: Appearance,Urine Clear (Clear); Bacteria,Urine Rare /hpf; Bilirubin,Urine Negative (Negative); Blood,Urine Trace (Negative); Color,Urine Yellow; Glucose,Urine (UA) Negative (Negative); Ketones,Urine Negative (Negative); Leukocyte Esterase,Urine Negative (Negative); Mucus,Urine Rare /hpf; Nitrite,Urine Negative (Negative); Protein,Urine Negative (Negative); RBC,Urine 1 /hpf (0-5); Specific Gravity,Urine 1.012 (1.001-1.035); Squamous Epithelial Cell,Urine 1 /hpf (0-4); Urobilinogen,Urine <2.0 mg/dL (<2.0); WBC,Urine 1 /hpf (0-5)
[2020-08-25 21:53] VITALS: BP 119/66; PULSE 78; RESP 16
== END 2020-08-25 21:30 | disposition home or self-care (01) ==
LOC: EC 17:26
DX: R19.7 Diarrhea, unspecified (principal); E03.9 Hypothyroidism, unspecified; I10 Essential (primary) hypertension; F17.200 Nicotine dependence, unspecified, uncomplicated; Z79.890 Hormone replacement therapy; Z79.02 Long term (current) use of antithrombotics/antiplatelets; Z79.899 Other long term (current) drug therapy; Z88.8 Allergy status to other drugs, medicaments and biological substances; Z86.73 Personal history of transient ischemic attack (TIA), and cerebral infarction without residual deficits; Z90.49 Acquired absence of other specified parts of digestive tract
CPT/HCPCS: 36415; 80053; 81001; 82150; 83605; 83690; 85025; 96360; 96361; 99284

== ENCOUNTER 2020-11-26 21:48 | Emergency (ER) | payer MEDICARE ==
[2020-11-26 21:58] VITALS: BP 98/69; PULSE 90; RESP 16; TEMP 98.5
[2020-11-26] MEDS ORDERED: diphenhydrAMINE 50 MG/ML 1 ML VIAL IVP STA (22:20)
[2020-11-26] MEDS ORDERED: FAMOTIDINE 20 MG/2 ML VIAL IV STA (22:20)
--- NOTE | 2020-11-26 22:27 | ED ---
Skin/Abscess/FB HPI - General Chief complaint: Skin/Abscess/Foreign Body Stated complaint: Shingles Time Seen by Provider: 11/26/20 22:10 Source: patient Mode of arrival: wheelchair Limitations: no limitations - History of Present Illness Initial comments: This patient is an 80-year-old woman who presents with concern that she may be developing shingles. The patient states that about 4-5 days ago she noticed she was developing some itching and also noticed there were some small red spots she was seeing. This was located to her abdomen, her back, bilateral legs. Patient states that now the itching seems to be keeping her awake. Patient denies any fever or chills. No dyspnea or chest pain. No abdominal pain change in urination or bowel movements. Review of systems reveals that she has had about 2 months of ankle edema. She had seen the linoleum layer apprentice and they are trying diuretic for this. MD complaint: rash, other (Pruritus) Onset/Timin -: days(s) Tetanus Up to Date: yes Location: generalized Quality: other (Itching) Consistency: constant Improves with: none Worsens with: none Context: new medication Associated symptoms: denies other symptoms Treatments Prior to Arrival: none - Related Data Home Medications Medication Instructions Recorded Confirmed Clopidogrel Bisulfate [Plavix] 75 mg PO HS 01/29/15 07/29/19 HYDROcodone/APAP 10-325MG [[place] 1 tab PO HS 01/29/15 07/29/19 10-325] Levothyroxine Sodium [Synthroid] 50 mcg PO DAILY 04/03/16 07/29/19 hydroCHLOROthiazide 12.5 mg PO DAILY 08/10/18 07/29/19 Primidone [Mysoline] 50 mg PO DAILY 01/26/19 07/29/19 Baclofen [Lioresal] 10 mg PO BID 07/29/19 07/29/19 Previous Rx's Medication Instructions Recorded Aspirin 325 mg PO DAILY tab 09/29/17 Ipratropium-Albuterol Nebulize 3 ml INHALATION RT-Q2H PRN 08/04/19 [Duoneb 0.5 mg-3 mg/3 ml Soln] ampul.neb Ipratropium-Albuterol Nebulize 3 ml INHALATION RT-QID ampul.neb 08/04/19 [Duoneb 0.5 mg-3 mg/3 ml Soln] guaiFENesin [Mucinex] 600 mg PO Q12HR PRN 7 Days #14 08/04/19 tablet.er Hydrocortisone Cream 1 applic TOPICAL BID PRN #15 gm 11/26/20 [Hydrocortisone 2.5% Cream] Allergies Allergy/AdvReac Type Severity Reaction Status Date / Time cimetidine [From Tagamet] Allergy Rash/Hives Verified 11/26/20 21:59 cimetidine HCl [From Tagamet] Allergy Rash/Hives Verified 11/26/20 21:59 prednisone Allergy Swelling Verified 11/26/20 21:59 sulfamethoxazole Allergy Nausea & Verified 11/26/20 21:59 [From Bactrim] Vomiting trimethoprim [From Bactrim] Allergy Nausea & Verified 11/26/20 21:59 Vomiting Review of Systems ROS Statement: Those systems with pertinent positive or pertinent negative responses have been documented in the HPI. ROS Other: All systems not noted in ROS Statement are negative. Constitutional: Denies: fever, chills ENT: Denies: congestion Respiratory: Denies: cough, dyspnea Cardiovascular: Reports: edema. Denies: chest pain, palpitations, orthopnea Gastrointestinal: Denies: abdominal pain, vomiting, diarrhea Genitourinary: Denies: dysuria Musculoskeletal: Denies: back pain Skin: Reports: as per HPI, rash, pruritus. Denies: lesions, change in color, change in hair/nails Neurological: Denies: headache, weakness Past Medical History Past Medical History: COPD, CVA/TIA, Hypertension, Thyroid Disorder Additional Past Medical History / Comment(s): Diverticular disease, COPD, previous history of CVA/TIA, hypertension, hypothyroidism, depression, nasal septal deviation History of Any Multi-Drug Resistant Organisms: None Reported Past Surgical History: Appendectomy Additional Past Surgical History / Comment(s): nasal septum Past Anesthesia/Blood Transfusion Reactions: No Reported Reaction Past Psychological History: Depression Smoking Status: Current every day smoker Past Alcohol Use History: None Reported Past Drug Use History: None Reported - Past Family History Mother Family Medical History: No Reported History Father Family Medical History: Unable to Obtain General Exam Limitations: no limitations General appearance: alert, in no apparent distress Head exam: Present: atraumatic, normocephalic Eye exam: Present: normal appearance. Absent: scleral icterus, conjunctival injection ENT exam: Present: normal oropharynx Respiratory exam: Present: normal lung sounds bilaterally. Absent: respiratory distress, wheezes, rales, rhonchi, stridor Cardiovascular Exam: Present: regular rate, normal rhythm, normal heart sounds. Absent: systolic murmur, diastolic murmur, rubs, gallop GI/Abdominal exam: Present: soft. Absent: distended, tenderness, guarding, rebound, rigid, mass Extremities exam: Present: normal inspection, normal capillary refill, pedal edema (Mild edema at the ankles bilaterally). Absent: calf tenderness Back exam: Present: normal inspection Neurological exam: Present: alert Skin exam: Present: warm, dry, intact, normal color, rash (Patient has few scattered papular lesions consistent with dermatitis, with overlying excoriations.) Course Vital Signs 11/26/20 21:52 Temperature 98.5 F Pulse Rate 90 Respiratory 16 Rate Blood Pressure 98/69 O2 Sat by Pulse 95 Oximetry Medical Decision Making - Lab Data Result diagrams: 11/26/20 22:27 11/26/20 22:27 Lab Results 11/26/20 11/26/20 Range/Units 22:27 22:27 WBC 8.1 (3.8-10.6) k/uL RBC 3.80 (3.80-5.40) m/uL Hgb 11.4 (11.4-16.0) gm/dL Hct 34.0 (34.0-46.0) % MCV 89.5 (80.0-100.0) fL MCH 29.9 (25.0-35.0) pg MCHC 33.4 (31.0-37.0) g/dL RDW 14.1 (11.5-15.5) % Plt Count 440 (150-450) k/uL MPV 7.5 Neutrophils % 58 % Lymphocytes % 25 % Monocytes % 11 % Eosinophils % 3 % Basophils % 1 % Neutrophils # 4.7 (1.3-7.7) k/uL Lymphocytes # 2.0 (1.0-4.8) k/uL Monocytes # 0.9 (0-1.0) k/uL Eosinophils # 0.3 (0-0.7) k/uL Basophils # 0.1 (0-0.2) k/uL Sodium 134 L (137-145) mmol/L Potassium 3.6 (3.5-5.1) mmol/L Chloride 94 L (98-107) mmol/L Carbon Dioxide 32 H (22-30) mmol/L Anion Gap 8 mmol/L BUN 24 H (7-17) mg/dL Creatinine 0.54 (0.52-1.04) mg/dL Est GFR (CKD-EPI)AfAm >90 (>60 ml/min/1.73 sqM) Est GFR (CKD-EPI)NonAf 89 (>60 ml/min/1.73 sqM) Glucose 91 (74-99) mg/dL Calcium 9.5 (8.4-10.2) mg/dL Total Bilirubin 0.4 (0.2-1.3) mg/dL AST 29 (14-36) U/L ALT <6 (4-34) U/L Alkaline Phosphatase 129 H (38-126) U/L Total Protein 6.4 (6.3-8.2) g/dL Albumin 3.4 L (3.5-5.0) g/dL Disposition Clinical Impression: Dermatitis Disposition: HOME SELF-CARE Condition: Good Instructions (If sedation given, give patient instructions): Dermatitis (ED) Prescriptions: Hydrocortisone Cream [Hydrocortisone 2.5% Cream] 1 applic TOPICAL BID PRN #15 gm PRN Reason: Itching Is patient prescribed a controlled substance at d/c from ED?: No Referrals: Kyleigh Garcia MD [Primary Care Provider] - 1-2 days Matilde Russell MD [STAFF PHYSICIAN] - 1-2 days
[2020-11-26 22:41] LABS: Basophils # (A) 0.1 k/uL (0-0.2); Basophils % (A) 1 %; Eosinophils # (A) 0.3 k/uL (0-0.7); Eosinophils % (A) 3 %; HGB 11.4 gm/dL (11.4-16.0); Lymphocytes % (A) 25 %; MCH 29.9 pg (25.0-35.0); MCHC 33.4 g/dL (31.0-37.0); MCV 89.5 fL (80.0-100.0); Mean Platelet Volume 7.5; Monocytes # (A) 0.9 k/uL (0-1.0); Monocytes % (A) 11 %; Neutrophils # (A) 4.7 k/uL (1.3-7.7); Neutrophils % (A) 58 %; Platelet Count 440 k/uL (150-450); RDW 14.1 % (11.5-15.5); WBC 8.1 k/uL (3.8-10.6)
[2020-11-26 22:42] LABS: ALT <6 U/L (4-34); AST 29 U/L (14-36); African American GFR (CKD) >90 (>60 ml/min/1.73 sqM); Albumin 3.4 g/dL (3.5-5.0); Alkaline Phosphatase 129 U/L (38-126); Anion Gap 8 mmol/L; Blood Urea Nitrogen 24 mg/dL (7-17); Calcium 9.5 mg/dL (8.4-10.2); Carbon Dioxide 32 mmol/L (22-30); Chloride 94 mmol/L (98-107); Glucose 91 mg/dL (74-99); Non-African American GFR(CKD) 89 (>60 ml/min/1.73 sqM); Potassium 3.6 mmol/L (3.5-5.1); Sodium 134 mmol/L (137-145); Total Bilirubin 0.4 mg/dL (0.2-1.3); Total Protein 6.4 g/dL (6.3-8.2)
== END 2020-11-26 23:28 | disposition home or self-care (01) ==
LOC: EC 21:48
DX: L30.9 Dermatitis, unspecified (principal); I10 Essential (primary) hypertension; E03.9 Hypothyroidism, unspecified; J34.2 Deviated nasal septum; F17.200 Nicotine dependence, unspecified, uncomplicated; Z79.890 Hormone replacement therapy; Z79.899 Other long term (current) drug therapy; Z90.49 Acquired absence of other specified parts of digestive tract; Z86.73 Personal history of transient ischemic attack (TIA), and cerebral infarction without residual deficits; Z88.1 Allergy status to other antibiotic agents; Z88.2 Allergy status to sulfonamides; Z88.8 Allergy status to other drugs, medicaments and biological substances
CPT/HCPCS: 36415; 80053; 84443; 85025; 99283; 96374; 96375; J1200

== ENCOUNTER 2021-02-28 19:41 | Inpatient (IN) | payer MEDICARE ==
[2021-02-28] MEDS ORDERED: ALBUTEROL NEBULIZED 2.5 MG/3 ML INHALATION STA (21:16)
--- NOTE | 2021-02-28 21:26 | ED ---
General Adult HPI - General Chief complaint: Weakness Stated complaint: Weakness Time Seen by Provider: 02/28/21 20:40 Source: patient, family, RN notes reviewed Mode of arrival: EMS Limitations: no limitations - History of Present Illness Initial comments: 80-year-old white female patient presents to the emergency room with her [id number]. Patient complaining of right foot dragging for the past 2 days with multiple falls. Patient states fell 2 days ago off the toilet in the bathroom and then fell again yesterday in the morning and sitting on the bed being and fell into the bedside table but not out of bed. Patient fell again in the afternoon yesterday on witness states fell and hit a wall with her back complaining of right rib pain. [id number] states that patient had a major stroke in 2004 and had left-sided weakness residual, has had multiple strokes in the past and is generally weak. Patient has been using a walker at home for the past 5 years however yesterday they had to get the wheelchair to help her get around because of her weakness. Patient denies headache chest pain to states feels generalized weakness. Seen PMD on 02/13 and bloodwork done on 02/06. [id number] states patient was put on a Medrol Dosepak for 4 days and just finished that recently for her rheumatoid arthritis, has an appointment for her RA on Thursday.. Patient sees Dr. Belcher for pulmonology. Family concerned for frequent falls over the past couple of days. Patient concerned about right- sided rib pain. -: days(s) (2) Location: chest Radiation: non-radiation Consistency: intermittent Improves with: none - Related Data Home Medications Medication Instructions Recorded Confirmed Clopidogrel Bisulfate [Plavix] 75 mg PO HS 01/29/15 07/29/19 HYDROcodone/APAP 10-325MG [[place] 1 tab PO HS 01/29/15 07/29/19 10-325] Levothyroxine Sodium [Synthroid] 50 mcg PO DAILY 04/03/16 07/29/19 hydroCHLOROthiazide 12.5 mg PO DAILY 08/10/18 07/29/19 Primidone [Mysoline] 50 mg PO DAILY 01/26/19 07/29/19 Baclofen [Lioresal] 10 mg PO BID 07/29/19 07/29/19 Previous Rx's Medication Instructions Recorded Aspirin 325 mg PO DAILY tab 11/07/17 Ipratropium-Albuterol Nebulize 3 ml INHALATION RT-Q2H PRN 08/04/19 [Duoneb 0.5 mg-3 mg/3 ml Soln] ampul.neb Ipratropium-Albuterol Nebulize 3 ml INHALATION RT-QID ampul.neb 08/04/19 [Duoneb 0.5 mg-3 mg/3 ml Soln] guaiFENesin [Mucinex] 600 mg PO Q12HR PRN 7 Days #14 08/04/19 tablet.er Hydrocortisone Cream 1 applic TOPICAL BID PRN #15 gm 11/26/20 [Hydrocortisone 2.5% Cream] Allergies Allergy/AdvReac Type Severity Reaction Status Date / Time cimetidine [From Tagamet] Allergy Rash/Hives Verified 11/26/20 21:59 cimetidine HCl [From Tagamet] Allergy Rash/Hives Verified 11/26/20 21:59 prednisone Allergy Swelling Verified 11/26/20 21:59 sulfamethoxazole Allergy Nausea & Verified 11/26/20 21:59 [From Bactrim] Vomiting trimethoprim [From Bactrim] Allergy Nausea & Verified 11/26/20 21:59 Vomiting Review of Systems ROS Statement: Those systems with pertinent positive or pertinent negative responses have been documented in the HPI. ROS Other: All systems not noted in ROS Statement are negative. Past Medical History Past Medical History: COPD, CVA/TIA, Hypertension, Thyroid Disorder Additional Past Medical History / Comment(s): Diverticular disease, COPD, previous history of CVA/TIA, hypertension, hypothyroidism, depression, nasal septal deviation History of Any Multi-Drug Resistant Organisms: None Reported Past Surgical History: Appendectomy Additional Past Surgical History / Comment(s): nasal septum Past Anesthesia/Blood Transfusion Reactions: No Reported Reaction Past Psychological History: Depression Smoking Status: Current every day smoker Past Alcohol Use History: None Reported Past Drug Use History: None Reported - Past Family History Mother Family Medical History: No Reported History Father Family Medical History: Unable to Obtain General Exam Limitations: no limitations, physical limitation (parkinson tremors, right foot drop) General appearance: alert, in no apparent distress Head exam: Present: atraumatic, normocephalic, normal inspection Eye exam: Present: normal appearance, PERRL, EOMI. Absent: scleral icterus, conjunctival injection, periorbital swelling ENT exam: Present: mucous membranes dry Neck exam: Present: normal inspection, full ROM. Absent: tenderness, meningismus, lymphadenopathy, thyromegaly Respiratory exam: Present: rhonchi, decreased breath sounds. Absent: wheezes, stridor, chest wall tenderness Cardiovascular Exam: Present: regular rate. Absent: systolic murmur, diastolic murmur, rubs, gallop, clicks GI/Abdominal exam: Present: soft, normal bowel sounds. Absent: distended, tenderness, guarding, rebound, rigid Extremities exam: Present: normal capillary refill. Absent: tenderness, pedal edema, calf tenderness Back exam: Absent: CVA tenderness (R), CVA tenderness (L) Neurological exam: Present: alert, oriented X3 Psychiatric exam: Present: normal affect, normal mood Skin exam: Present: warm (ecchymosis to left posterior ribs), dry, intact, normal color. Absent: rash Course Vital Signs 02/28/21 02/28/21 02/28/21 20:39 21:00 22:00 Temperature 99.0 F Pulse Rate 87 76 78 Respiratory 18 18 18 Rate Blood Pressure 109/65 134/81 131/79 O2 Sat by Pulse 91 L 94 L 95 Oximetry EKG Findings - EKG Results: EKG: sinus rhythm (Ventricular rate of 83, ME interval of 0.13, QRS of 0.86, QTC 453, frequent PVCs and PACs noted) Medical Decision Making - Medical Decision Making CT shows no abnormalities, no hemorrhage, no mass, no midline shift. Potassium of 3.0 was replaced with 40 of K-dur, and 10meq IVPB x4. All other labs are unremarkable and consistent with previous labs drawn on February 06. Chest x-ray shows right upper and right lower lobe pneumonia, area of concern also located in the left lower lobe not noted by radiology, oxygen saturation remains 90-91% on 2 L nasal cannula however will admit to Dr. Chandra. Zithromax and Rocephin started in the ED. case discussed with Dr. Rainey was agreeable to this plan. - Lab Data Result diagrams: 02/28/21 21:37 02/28/21 21:37 Lab Results 02/28/21 02/28/21 Range/Units 21:37 21:37 WBC 8.1 (3.8-10.6) k/uL RBC 3.74 L (3.80-5.40) m/uL Hgb 11.0 L (11.4-16.0) gm/dL Hct 31.9 L (34.0-46.0) % MCV 85.1 (80.0-100.0) fL MCH 29.4 (25.0-35.0) pg MCHC 34.5 (31.0-37.0) g/dL RDW 16.3 H (11.5-15.5) % Plt Count 339 (150-450) k/uL MPV 7.2 Neutrophils % 80 % Lymphocytes % 14 % Monocytes % 5 % Eosinophils % 1 % Basophils % 0 % Neutrophils # 6.5 (1.3-7.7) k/uL Lymphocytes # 1.1 (1.0-4.8) k/uL Monocytes # 0.4 (0-1.0) k/uL Eosinophils # 0.1 (0-0.7) k/uL Basophils # 0.0 (0-0.2) k/uL Anisocytosis Slight Sodium 126 L (137-145) mmol/L Potassium 3.0 L (3.5-5.1) mmol/L Chloride 90 L (98-107) mmol/L Carbon Dioxide 30 (22-30) mmol/L Anion Gap 6 mmol/L BUN 20 H (7-17) mg/dL Creatinine 0.46 L (0.52-1.04) mg/dL Est GFR (CKD-EPI)AfAm >90 (>60 ml/min/1.73 sqM) Est GFR (CKD-EPI)NonAf >90 (>60 ml/min/1.73 sqM) Glucose 92 (74-99) mg/dL Calcium 8.1 L (8.4-10.2) mg/dL Total Bilirubin 0.4 (0.2-1.3) mg/dL AST 48 H (14-36) U/L ALT 14 (4-34) U/L Alkaline Phosphatase 155 H (38-126) U/L Total Protein 4.9 L (6.3-8.2) g/dL Albumin 2.6 L (3.5-5.0) g/dL Disposition Clinical Impression: Pneumonia, COPD exacerbation Disposition: ADMITTED IP TO THIS HOSP Condition: Fair Is patient prescribed a controlled substance at d/c from ED?: No Referrals: Kyleigh Garcia MD [Primary Care Provider] - 1-2 days Decision Date: 02/28/21 Decision Time: 22:30
[2021-02-28 21:56] LABS: Anisocytosis Slight; Basophils % (A) 0 %; Eosinophils # (A) 0.1 k/uL (0-0.7); Eosinophils % (A) 1 %; HCT 31.9 % (34.0-46.0); Lymphocytes # (A) 1.1 k/uL (1.0-4.8); Lymphocytes % (A) 14 %; MCH 29.4 pg (25.0-35.0); MCHC 34.5 g/dL (31.0-37.0); MCV 85.1 fL (80.0-100.0); Mean Platelet Volume 7.2; Monocytes # (A) 0.4 k/uL (0-1.0); Monocytes % (A) 5 %; Neutrophils # (A) 6.5 k/uL (1.3-7.7); Neutrophils % (A) 80 %; Platelet Count 339 k/uL (150-450); RBC 3.74 m/uL (3.80-5.40); RDW 16.3 % (11.5-15.5); WBC 8.1 k/uL (3.8-10.6)
[2021-02-28 22:07] LABS: ALT 14 U/L (4-34); AST 48 U/L (14-36); African American GFR (CKD) >90 (>60 ml/min/1.73 sqM); Albumin 2.6 g/dL (3.5-5.0); Alkaline Phosphatase 155 U/L (38-126); Anion Gap 6 mmol/L; Blood Urea Nitrogen 20 mg/dL (7-17); Calcium 8.1 mg/dL (8.4-10.2); Carbon Dioxide 30 mmol/L (22-30); Chloride 90 mmol/L (98-107); Glucose 92 mg/dL (74-99); Non-African American GFR(CKD) >90 (>60 ml/min/1.73 sqM); Sodium 126 mmol/L (137-145); Total Bilirubin 0.4 mg/dL (0.2-1.3); Total Protein 4.9 g/dL (6.3-8.2)
--- NOTE | 2021-02-28 22:13 | CT ---
EXAMINATION TYPE: CT brain wo con DATE OF EXAM: 02/28/2021 COMPARISON: 09/26/2017 HISTORY: ams, fall CT DLP: 1125.4 mGycm Automated exposure control for dose reduction was used. There is cerebral cortical atrophy. There is no mass effect nor midline shift. There is no sign of in tracranial hemorrhage. Calvarium is intact. Skull base is intact. There is normal aeration of the mas toid sinuses. IMPRESSION: Cerebral atrophy. No acute intracranial abnormality. No adverse change.
[2021-02-28] MEDS ORDERED: POTASSIUM CHLORIDE ER 20 MEQ TAB.ER PO STA (22:15)
--- NOTE | 2021-02-28 22:18 | XR ---
EXAMINATION TYPE: XR chest 2V DATE OF EXAM: 02/28/2021 COMPARISON: 07/29/2019 HISTORY: Short of breath TECHNIQUE: 2 views FINDINGS: There is some airspace consolidation right lung base. There is also some patchy consolidati on right lung apex. Left lung is fairly clear. There is pulmonary hyperinflation with flattening of t he diaphragm. There is blunting right costophrenic angle. There are chest leads. There is some osteop enia. There is acute fracture right posterior lateral seventh rib. This possible other rib fractures. IMPRESSION: There is right upper lobe and right lower lobe pneumonia which is new compared to old exa m. There is underlying COPD. Mild to moderate right pleural effusion. No heart failure. Right-sided r ib fracture.
[2021-02-28] MEDS ORDERED: cefTRIAXone IN SWFI 1,000 MG/10 ML SYRINGE IVP STA (22:27)
[2021-02-28] MEDS ORDERED: AZITHROMYCIN 500 MG in SODIUM CHLORIDE 0.9% 250 ML IVPB STA (22:27)
[2021-02-28] MEDS ORDERED: NALOXONE 0.4 MG/ML 1 ML VIAL IV PRN (22:32)
[2021-02-28] MEDS ORDERED: HYDROcodone/APAP 5-325MG 1 EACH TAB PO STA (22:50)
[2021-03-01] MEDS: SODIUM CHLORIDE 0.9% 1,000 ML IV SCH ×3 (02:17→22:46)
[2021-03-01] MEDS: POTASSIUM CHLORIDE 10 MEQ in WATER FOR INJECTION 1 100ML.BAG IVPB SCH ×3 (02:18→05:02)
--- NOTE | 2021-03-01 12:27 | P.HPIM ---
History of Present Illness This is a pleasant 80 years old female with past medical history of COPD, CVA/TIA, hypertension, hypothyroidism, depression, diverticular disease. She is a patient of Dr. Mcnulty and follow-up with Dr. Castillo for her Parkinson disease also she sees Hayley for her COPD. She is on home oxygen of 2 L/m Patient presents because of frequent falls, she fell 3 times over the last 2 days without syncope or dizziness. She fell once the pectoralis/hour, another time in her bathroom against well after time when she was trying drinking her workup of her bed. Since yesterday patient also was complaining of from pain in both hip areas radiating to both knees. On some pain in the middle of her back. She has bilateral knee pain going down to the feet. Her knees are swollen bilaterally but also she was recently treated with Medrol dosepack for her rheumatoid arthritis of her joints and elbow as they were painful and swollen. She is fully awake and oriented. Also patient was complaining of from right side chest pain, associated with cough and phlegm about 3 days duration but no dyspnea. However patient at baseline and uses a walker He smokes 5 cigarettes a day, patient is counseled to quit but she declined, she declined nicotine patch as well. She denies alcohol or illicit drug she was history of stroke in 2004 with mild left hemiparesis however recently noticed some weakness in her right side as well Both feet are swollen Vitas looks stable and patient saturating 94% on 4 L oxygen via nasal cannula. Afebrile. CBC is unremarkable, sodium is low at 126, potassium 3. Creatinine 0.4. Liver enzymes significantly elevated.senior virus detected CXR: Right upper lobe and right lower lobe pneumonia, right-sided rib fracture CT of brain: Cerebral atrophy. No acute intracranial abnormality In the emergency room patient was started on Zithromax and ceftriaxone 1, and continue to normal sinus 75 mL/h Review of Systems CONSTITUTIONAL: No fever, no malaise, no fatigue. HEENT: No recent visual problems or hearing problems. Denied any sore throat. CARDIOVASCULAR: No orthopnea, PND, no palpitations, no syncope. PULMONARY: No upper respiratory infection symptoms, no hemoptysis. GASTROINTESTINAL: No diarrhea, no nausea, no vomiting, no abdominal pain. Normoactive bowel sounds. NEUROLOGICAL: No headaches, no weakness, no numbness. HEMATOLOGICAL: Denies any bleeding or petechiae. GENITOURINARY: Denies any burning micturition, frequency, or urgency. -MUSCULOSKELETAL/RHEUMATOLOGICAL: as above ENDOCRINE: Denies any polyuria or polydipsia. Past Medical History Past Medical History: COPD, CVA/TIA, Hypertension, Thyroid Disorder Additional Past Medical History / Comment(s): Diverticular disease, COPD, prev ious history of CVA/TIA, hypertension, hypothyroidism, depression, nasal septal deviation History of Any Multi-Drug Resistant Organisms: None Reported Past Surgical History: Appendectomy Additional Past Surgical History / Comment(s): nasal septum Past Anesthesia/Blood Transfusion Reactions: No Reported Reaction Past Psychological History: Depression Smoking Status: Current every day smoker Past Alcohol Use History: None Reported Past Drug Use History: None Reported - Past Family History Mother Family Medical History: No Reported History Father Family Medical History: Unable to Obtain Medications and Allergies Home Medications Medication Instructions Recorded Confirmed Type Clopidogrel Bisulfate [Plavix] 75 mg PO DAILY 01/29/15 02/28/21 History HYDROcodone/APAP 10-325MG [[place] 1 tab PO QID PRN 01/29/15 02/28/21 History 10-325] hydroCHLOROthiazide 25 mg PO DAILY 08/10/18 02/28/21 History Primidone [Mysoline] 50 mg PO TID 01/26/19 02/28/21 History Baclofen [Lioresal] 10 mg PO TID 07/29/19 02/28/21 History Aspirin EC [Ecotrin Low Dose] 81 mg PO DAILY 02/28/21 02/28/21 History Carbidopa-Levodopa 25-100 mg 1 tab PO TID 02/28/21 02/28/21 History [Sinemet 25-100] Fluticasone/Vilanterol [Breo 1 puff INHALATION RT-DAILY 02/28/21 02/28/21 History Ellipta 200-25 Mcg INH] Furosemide [Lasix] 40 mg PO DAILY PRN 02/28/21 02/28/21 History Ipratropium-Albuterol Nebulize 3 ml INHALATION RT-QID PRN 02/28/21 02/28/21 History [Duoneb 0.5 mg-3 mg/3 ml Soln] Levothyroxine Sodium [Synthroid] 50 mcg PO DAILY 02/28/21 02/28/21 History Metoprolol Tartrate [Lopressor] 12.5 mg PO BID 02/28/21 02/28/21 History Potassium Chloride ER [K-Dur 10] 10 meq PO DAILY 02/28/21 02/28/21 History Allergies Allergy/AdvReac Type Severity Reaction Status Date / Time cimetidine [From Tagamet] Allergy Rash/Hives Verified 02/28/21 23:14 cimetidine HCl [From Tagamet] Allergy Rash/Hives Verified 02/28/21 23:14 prednisone Allergy Swelling Verified 02/28/21 23:14 sulfamethoxazole Allergy Nausea & Verified 02/28/21 23:14 [From Bactrim] Vomiting trimethoprim [From Bactrim] Allergy Nausea & Verified 02/28/21 23:14 Vomiting Physical Exam Vitals: Vital Signs Temp Pulse Resp BP Pulse Ox 03/01/21 09:00 97.6 F 80 18 119/64 94 L 03/01/21 08:00 80 16 117/77 94 L 03/01/21 07:00 75 18 118/65 96 03/01/21 06:00 83 23 113/66 91 L 03/01/21 05:00 78 24 113/62 93 L 03/01/21 04:00 79 23 106/57 91 L 03/01/21 03:00 82 25 H 104/60 92 L 03/01/21 02:00 71 22 99/56 92 L 03/01/21 01:00 72 17 97/59 93 L 03/01/21 00:47 23 03/01/21 00:42 75 19 97/59 92 L 03/01/21 00:00 77 23 102/65 92 L 02/28/21 23:00 74 20 108/59 89 L 02/28/21 22:00 76 22 110/63 93 L 02/28/21 21:00 99.0 F 79 19 107/57 92 L 02/28/21 20:39 87 18 109/65 91 L 02/28/21 20:38 78 26 H 107/57 91 L Intake and Output 02/28/21 03/01/21 03/01/21 22:59 06:59 14:59 Other: Weight 48.988 kg -GENERAL: The patient is alert and oriented x3, not in any acute distress. Thin built HEENT: Pupils are round and equally reacting to light. EOMI. No scleral icterus. No conjunctival pallor. Normocephalic, atraumatic. No pharyngeal erythema. No thyromegaly. CARDIOVASCULAR: S1 and S2 present. No murmurs, rubs, or gallops. PULMONARY: Chest is clear to auscultation, no wheezing or crackles. ABDOMEN: Soft, nontender, nondistended, normoactive bowel sounds. No palpable organomegaly. -MUSCULOSKELETAL: No joint swelling or deformity. Both knees are swollen and tender, no warmth or redness. Interphalangeal joints of the fingers are mildly swollen -EXTREMITIES: No cyanosis, clubbing, . No leg edema but Bilateral pedal edema. NEUROLOGICAL: Gross neurological examination did not reveal any focal deficits. SKIN: No rashes. No petechiae Results CBC & Chem 7: 02/28/21 21:37 02/28/21 21:37 Labs: Abnormal Lab Results - Last 24 Hours (Table) 02/28/21 02/28/21 02/28/21 Range/Units 21:37 21:37 23:40 RBC 3.74 L (3.80-5.40) m/uL Hgb 11.0 L (11.4-16.0) gm/dL Hct 31.9 L (34.0-46.0) % RDW 16.3 H (11.5-15.5) % Sodium 126 L (137-145) mmol/L Potassium 3.0 L (3.5-5.1) mmol/L Chloride 90 L (98-107) mmol/L BUN 20 H (7-17) mg/dL Creatinine 0.46 L (0.52-1.04) mg/dL Calcium 8.1 L (8.4-10.2) mg/dL AST 48 H (14-36) U/L Alkaline Phosphatase 155 H (38-126) U/L Total Protein 4.9 L (6.3-8.2) g/dL Albumin 2.6 L (3.5-5.0) g/dL Coronavirus (PCR) Detected A (Not Detectd) Assessment and Plan Assessment: Multiple falls and generalized weakness Right side upper and lower lobe Pneumonia, with mild to moderate right pleural effusion Acute covid infection Acute hypoxic respiratory failure secondary to above. On chronic respiratory failure multiple joint pains including both hip, both knees and back secondary to fall Mild hyponatremia [id number] protein calorie malnutrition Hypertension Hypothyroidism COPD, not in acute exacerbation. Chronic hypoxic respiratory failure history of CVA/TIA History of depression, not active issue History of diverticular disease Plan: This is a pleasant 80 years old female who presents with right-sided pneumonia, Covid infection. Continue with ceftriaxone and Zithromax. Start multiple vitamins for Covid. Follow-up culture results. Lovenox, Pulmonary consult. We'll check x-ray of the both hip and pelvis, also x-ray of of the knees. Also will consult nephrology service and review of her recurrent falls and Parkinson disease and history of stroke Dietary consult Labs and medication were reviewed.. Continue same treatment. Continue with symptomatic treatment. Resume home medication. Monitor lytes and vitals. DVT and GI prophylaxis. Further recommendations depends on the clinical course of the patient DVT prophylaxis: Subcutaneous Lovenox GI Prophylaxis: Pepcid PT/OT: Pending Prognosis is guarded
[2021-03-01] MEDS: ENOXAPARIN 40 MG/0.4 ML SYRINGE SQ SCH (12:39)
[2021-03-01] MEDS: ASCORBIC ACID 500 MG TAB PO SCH (12:39)
[2021-03-01] MEDS: CHOLECALCIFEROL 25 MCG (1000 IU) TABLET PO SCH (12:39)
[2021-03-01] MEDS: ACETAMINOPHEN TAB 325 MG TAB PO PRN ×2 (12:39→20:18)
[2021-03-01] MEDS: ZINC SULFATE 220 MG CAP PO SCH (12:39)
[2021-03-01] MEDS: PANTOPRAZOLE 40 MG TABLET PO SCH (12:40)
--- NOTE | 2021-03-01 16:52 | XR ---
EXAMINATION TYPE: XR knee limited bilateral DATE OF EXAM: 03/01/2021 COMPARISON: HISTORY: Pain TECHNIQUE: Two-view bilateral knees FINDINGS: Right knee: There is narrowing of the medial compartment joint space. Lateral compartment joint spac e may have mild narrowing. Large joint effusion is present. Acute fractures are evident Left knee: Minimal diffuse narrowing of the joint spaces is present. Large joint effusion is present. No acute fractures are evident. IMPRESSION: 1. Large bilateral joint effusions. 2. Mild narrowing of the joint space is compatible some osteoarthritic degenerative change. 3. Acute osseous abnormalities are not identified
--- NOTE | 2021-03-01 16:53 | XR ---
EXAMINATION TYPE: XR Hip Bilateral and AP pelvis DATE OF EXAM: 03/01/2021 COMPARISON: None HISTORY: Bilateral hip pain, rheumatoid arthritis, fall TECHNIQUE: AP pelvis and 2 views bilateral hips FINDINGS: Symphysis pubis and sacroiliac joints are normal. Abundant bowel gas is present. Femoral heads articulate with the acetabulum. No acute fractures are evident. IMPRESSION: 1. No acute fractures bilateral hips
[2021-03-01] MEDS: METOPROLOL TARTRATE 12.5 MG TAB PO SCH (17:25)
[2021-03-01] MEDS: DEXAMETHASONE SOD PHOSPHATE 10 MG/ML 1 ML VIAL IV SCH (17:26)
[2021-03-01] MEDS: BACLOFEN 10 MG TAB PO SCH ×2 (17:26→21:35)
--- NOTE | 2021-03-01 17:32 | P.CNPUL ---
History of Present Illness Consult date: 03/01/21 Requesting physician: Kyleigh Garcia Reason for consult: dyspnea, cough, other Chief complaint: Weakness and fatigue. Falling. History of present illness: 80-year-old female, who presents to the emergency department, brought in by EMS, on February 28. She apparently complained of weakness, and fatigue, with multiple falls. She apparently fell once in the bathroom, and then once subsequent to that while sitting on the bed. She apparently came into the emergency room complaining of diffuse aches and pains including right rib pain, and some issues with her right foot. The patient apparently had a stroke in 2004, and has left- sided weakness as a residual. The patient also has a history of chronic obstructive pulmonary disease, and sees our nurse practitioner in the office for that. She apparently did test positive for coronavirus, and hasn't been feeling well for at least 2 weeks. She has a history of COPD, stroke, hypothyroidism, diverticular disease, depression, hypertension, and nasal septal deviation. She does continue to smoke on a daily basis. Lab data includes a white count of 8.1, hemoglobin 11, hematocrit 31.9, platelet count 339,000. Sodium was 126, potassium 3, chloride 90, CO2 30, anion gap 6, BUN 20, creatinine 0.46. Brain CT only showed cerebral atrophy, nothing acute. Chest x-ray shows right upper lobe, and right lower lobe pneumonia, which is new. There is also a right-sided rib fracture. X-rays of the right and left knee showed some chronic changes, nothing acute and certainly no fractures. Hip x-rays were negative as well. Review of Systems REVIEW OF SYSTEMS: CONSTITUTIONAL: Weakness and fatigue 2 weeks. NEUROLOGIC: Multiple falls. HEENT: [ Negative.] CARDIAC: [Negative.] PULMONARY: Chronic cough and shortness of breath, pretty much at baseline. GI: [Negative.] : [Negative.] RHEUMATOLOGIC: [ Negative.] IMMUNOLOGIC: [ Negative.] ENDOCRINE: [Negative. ] DERMATOLOGIC: [Negative.] Past Medical History Past Medical History: COPD, CVA/TIA, Hyperlipidemia, Hypertension, Musculoskeletal Disorder, Neurologic Disorder, Osteoarthritis (OA), Pneumonia, Renal Disease, Respiratory Disorder, Rheumatoid Arthritis (RA), Thyroid Disorder Additional Past Medical History / Comment(s): CVAs with L sided weakness, TIAs, home oxygen at 2L/NC ATC, Parkinson's disease, pt states has had irregular heart beat, murmur, diverticular disease, born with one functioning kidney, migraines, bilateral feet edema. History of Any Multi-Drug Resistant Organisms: None Reported Past Surgical History: Adenoidectomy, Appendectomy, Tonsillectomy, Tubal Ligation Additional Past Surgical History / Comment(s): Nasal septal deviation corrected with surgery, colonoscopy. Past Anesthesia/Blood Transfusion Reactions: No Reported Reaction Additional Past Anesthesia/Blood Transfusion Reaction / Comment(s): Pt has clausterphobia. Smoking Status: Current every day smoker - Past Family History Mother Family Medical History: Pneumonia Father Family Medical History: Myocardial Infarction ([place]) Additional Family Medical History / Comment(s): Father of a [place] in his 40s. Medications and Allergies Home Medications Medication Instructions Recorded Confirmed Type Clopidogrel Bisulfate [Plavix] 75 mg PO DAILY 01/29/15 02/28/21 History HYDROcodone/APAP 10-325MG [[place] 1 tab PO QID PRN 01/29/15 02/28/21 History 10-325] hydroCHLOROthiazide 25 mg PO DAILY 08/10/18 02/28/21 History Primidone [Mysoline] 50 mg PO TID 01/26/19 02/28/21 History Baclofen [Lioresal] 10 mg PO TID 07/29/19 02/28/21 History Aspirin EC [Ecotrin Low Dose] 81 mg PO DAILY 02/28/21 02/28/21 History Carbidopa-Levodopa 25-100 mg 1 tab PO TID 02/28/21 02/28/21 History [Sinemet 25-100] Fluticasone/Vilanterol [Breo 1 puff INHALATION RT-DAILY 02/28/21 02/28/21 History Ellipta 200-25 Mcg INH] Furosemide [Lasix] 40 mg PO DAILY PRN 02/28/21 02/28/21 History Ipratropium-Albuterol Nebulize 3 ml INHALATION RT-QID PRN 02/28/21 02/28/21 History [Duoneb 0.5 mg-3 mg/3 ml Soln] Levothyroxine Sodium [Synthroid] 50 mcg PO DAILY 02/28/21 02/28/21 History Metoprolol Tartrate [Lopressor] 12.5 mg PO BID 02/28/21 02/28/21 History Potassium Chloride ER [K-Dur 10] 10 meq PO DAILY 02/28/21 02/28/21 History Allergies Allergy/AdvReac Type Severity Reaction Status Date / Time cimetidine [From Tagamet] Allergy Rash/Hives Verified 02/28/21 23:14 cimetidine HCl [From Tagamet] Allergy Rash/Hives Verified 02/28/21 23:14 prednisone Allergy Swelling Verified 02/28/21 23:14 sulfamethoxazole Allergy Nausea & Verified 02/28/21 23:14 [From Bactrim] Vomiting trimethoprim [From Bactrim] Allergy Nausea & Verified 02/28/21 23:14 Vomiting Physical Exam Osteopathic Statement: *. No significant issues noted on an osteopathic structural exam other than those noted in the History and Physical/Consult. Vitals: Vital Signs Temp Pulse Pulse Resp BP BP Pulse Ox 03/01/21 16:45 97.9 F 80 16 124/68 94 L 03/01/21 14:00 70 18 127/70 97 03/01/21 13:00 98.9 F 76 18 121/69 96 03/01/21 12:00 82 18 117/68 98 03/01/21 11:00 80 20 110/67 95 03/01/21 10:00 79 18 110/67 95 03/01/21 09:00 97.6 F 80 18 119/64 94 L 03/01/21 08:00 80 16 117/77 94 L 03/01/21 07:00 75 18 118/65 96 03/01/21 06:00 83 23 113/66 91 L 03/01/21 05:00 78 24 113/62 93 L 03/01/21 04:00 79 23 106/57 91 L 03/01/21 03:00 82 25 H 104/60 92 L 03/01/21 02:00 71 22 99/56 92 L 03/01/21 01:00 72 17 97/59 93 L 03/01/21 00:47 23 03/01/21 00:42 75 19 97/59 92 L 03/01/21 00:00 77 23 102/65 92 L 02/28/21 23:00 74 20 108/59 89 L 02/28/21 22:00 76 22 110/63 93 L 02/28/21 21:00 99.0 F 79 19 107/57 92 L 02/28/21 20:39 87 18 109/65 91 L 02/28/21 20:38 78 26 H 107/57 91 L Intake and Output 03/01/21 03/01/21 03/01/21 06:59 14:59 22:59 Other: Weight 48.988 kg No acute distress, oriented 3. Currently on 4 L nasal cannula, saturations 94%. HEENT examination is grossly unremarkable. . Neck supple. Full range of motion. No adenopathy thyromegaly or neck vein distention. Cardiovascular examination reveals regular rhythm rate. S1-S2 normal. No S3 or S4. No discernible murmur noted. Heart rate 80 bpm. Lungs reveal diffuse rhonchi and scattered crackles. No distinct wheezes. Breath sounds equal bilaterally but diminished throughout. Abdomen soft bowel sounds are heard. No masses or tenderness. Extremities are intact. No cyanosis or clubbing. Lower extremity edema noted. Skin is without rash or lesion. Neurologic examination is brief but nonfocal. The patient has a obvious tremor. Results - Laboratory Findings CBC and BMP: 02/28/21 21:37 02/28/21 21:37 Abnormal lab findings: Abnormal Labs 02/28/21 02/28/21 02/28/21 21:37 21:37 23:40 RBC 3.74 L Hgb 11.0 L Hct 31.9 L RDW 16.3 H Sodium 126 L Potassium 3.0 L Chloride 90 L BUN 20 H Creatinine 0.46 L Calcium 8.1 L AST 48 H Alkaline Phosphatase 155 H Total Protein 4.9 L Albumin 2.6 L Coronavirus (PCR) Detected A - Diagnostic Findings Chest x-ray: image reviewed Assessment and Plan Assessment: Coronavirus infection, with possible COVID 19 pneumonitis. Rule out right-sided bacterial pneumonia. History of COPD, with ongoing tobacco use and nicotine addiction. Chronic hypoxemic respiratory failure. History of CVA. Weakness and fatigue, with multiple falls, and right-sided rib fracture. History of hypertension. History of hypothyroidism. History of diverticular disease. History of depression. Plan: Plan dated 03/01/2021. We will make sure that the patient was placed on appropriate medications for her COPD. In addition, she should be on vitamin C, vitamin D3, and zinc. In addition, she should get Lovenox, and Decadron. We'll check a pro-calcitonin level. We encourage her to stop smoking. A nicotine patch should be a good idea. Additional recommendations and suggestions are forthcoming. Prognosis is guarded. We will continue to follow make recommendations were appropriate. Time with Patient: Greater than 30
[2021-03-01] MEDS ORDERED: ALBUTEROL HFA INHALER INHALATION PRN (17:35)
[2021-03-01] MEDS: CARBIDOPA-LEVODOPA 25-100 MG 1 EACH TAB PO SCH ×2 (18:28→21:35)
[2021-03-01] MEDS: PRIMIDONE 50 MG TAB PO SCH ×2 (18:28→21:35)
--- NOTE | 2021-03-01 20:28 | P.CNNES ---
History of Present Illness Consult date: 03/01/21 Requesting physician: Santos Camejo Reason for Consult: Multiple falls and weakness History of Present Illness: Patient is a 80-year-old female came to the hospital by ambulance yesterday at 7:41 PM for multiple falls in the last 2 days. Patient states she started feeling weak about 2 or 3 weeks ago. She fell 3 times last week, because of losing balance. The first fall occurred while she was in the toilet, pulled her pajamas, tying her pajama string in a bow, when she lost balance and fell in the shower. The second time she fell while walking into the bathroom and fell against the wall, hit back of the head on the wall. The third time she was in her bed, reaching for ice water, lost balance and fell off the bed on the floor. All these falls occurred due to losing balance. No syncope. Patient denies any neck pain, or back pain. Patient denies any numbness of the feet although she feels pain in the feet related to poor circulation in the legs. She follows up with Dr. Chi. Patient states that she uses walker at home for last 3 years. She was falling with a walker. She states has no balance. Otherwise she does not have falls, except once it happened in 2019, when she went to [facility]. Patient states that her son and [id number] lives with her. She also has head tremor and states that she has been diagnosed with Parkinson's and follows up with Dr. Bardales. Patient states that she had a major stroke in 2004, which affected her right side of the body. She was hospitalized for 2 weeks. She had another mini strokes in the past as well. Patient has been using walker at home for past 5 years however yesterday they had to get the wheelchair to help her get around because of her weakness and falls. Patient denies any slurred speech, facial droop, problem with the vision. Vital signs on arrival blood pressure 107/57, pulse rate 78, temperature 99.0. Blood test shows WBC 8.1 hemoglobin 11.0, platelets 339. Sodium 126 potassium 3.0, BUN 20, creatinine 0.46 AST is mildly elevated 48, normal ALT 14. [place] viruses positive. CT head showed cerebral atrophy, no acute intracranial abnormality. No acute change. Chest x-ray showed right upper lobe and right lower lobe pneumonia which is new compared to old exam from 07/29/2019. There is underlying COPD. Mild to moderate right pleural effusion. No heart failure. Right-sided rib fracture. Patient had a MRI of the lumbar spine previously on 10/24/2015, which revealed multilevel degenerative disc disease as well as facet arthropathy with variable mild neuroforaminal stenosis. No spinal canal stenosis. No vertebral compression collapse or malalignment. Diffuse bone marrow heterogeneity suspected to be on the basis of red marrow reconversion, which can be seen with smoking of obesity and anemia. Patient had a normal carotid Doppler on 09/27/2017. Head MRA 11/02/2018 showed no active or patent aneurysm at the level of [place]. A clotted aneurysm cannot be ruled out. Patient has smoked 1 pack per day since age 17, cutback to 5 cigarettes per day since she was diagnosed COPD one year ago. Denies diabetes. Review of Systems As mentioned above in HPI. Patient has some shortness of breath. Denies any chest pain. Denies double vision loss of vision, hearing loss. Patient complains of pain in the feet. Denies any neck or back pain. No abdominal p ain, nausea vomiting diarrhea. All other review of systems unremarkable. Patient has generalized weakness. Balance issues. Past Medical History Past Medical History: COPD, CVA/TIA, Hyperlipidemia, Hypertension, Musculoskeletal Disorder, Neurologic Disorder, Osteoarthritis (OA), Pneumonia, Renal Disease, Respiratory Disorder, Rheumatoid Arthritis (RA), Thyroid Disorder Additional Past Medical History / Comment(s): CVAs with L sided weakness, TIAs, home oxygen at 2L/NC ATC, Parkinson's disease, pt states has had irregular heart beat, murmur, diverticular disease, born with one functioning kidney, migraines, bilateral feet edema. History of Any Multi-Drug Resistant Organisms: None Reported Past Surgical History: Adenoidectomy, Appendectomy, Tonsillectomy, Tubal Lig ation Additional Past Surgical History / Comment(s): Nasal septal deviation corrected with surgery, colonoscopy. Past Anesthesia/Blood Transfusion Reactions: No Reported Reaction Additional Past Anesthesia/Blood Transfusion Reaction / Comment(s): Pt has clausterphobia. Smoking Status: Current every day smoker - Past Family History Mother Family Medical History: Pneumonia Father Family Medical History: Myocardial Infarction ([place]) Additional Family Medical History / Comment(s): Father of a [place] in his 40s. Medications and Allergies Home Medications Medication Instructions Recorded Confirmed Type Clopidogrel Bisulfate [Plavix] 75 mg PO DAILY 01/29/15 02/28/21 History HYDROcodone/APAP 10-325MG [[place] 1 tab PO QID PRN 01/29/15 02/28/21 History 10-325] hydroCHLOROthiazide 25 mg PO DAILY 08/10/18 02/28/21 History Primidone [Mysoline] 50 mg PO TID 01/26/19 02/28/21 History Baclofen [Lioresal] 10 mg PO TID 07/29/19 02/28/21 History Aspirin EC [Ecotrin Low Dose] 81 mg PO DAILY 02/28/21 02/28/21 History Carbidopa-Levodopa 25-100 mg 1 tab PO TID 02/28/21 02/28/21 History [Sinemet 25-100] Fluticasone/Vilanterol [Breo 1 puff INHALATION RT-DAILY 02/28/21 02/28/21 History Ellipta 200-25 Mcg INH] Furosemide [Lasix] 40 mg PO DAILY PRN 02/28/21 02/28/21 History Ipratropium-Albuterol Nebulize 3 ml INHALATION RT-QID PRN 02/28/21 02/28/21 History [Duoneb 0.5 mg-3 mg/3 ml Soln] Levothyroxine Sodium [Synthroid] 50 mcg PO DAILY 02/28/21 02/28/21 History Metoprolol Tartrate [Lopressor] 12.5 mg PO BID 02/28/21 02/28/21 History Potassium Chloride ER [K-Dur 10] 10 meq PO DAILY 02/28/21 02/28/21 History Allergies Allergy/AdvReac Type Severity Reaction Status Date / Time cimetidine [From Tagamet] Allergy Rash/Hives Verified 02/28/21 23:14 cimetidine HCl [From Tagamet] Allergy Rash/Hives Verified 02/28/21 23:14 prednisone Allergy Swelling Verified 02/28/21 23:14 sulfamethoxazole Allergy Nausea & Verified 02/28/21 23:14 [From Bactrim] Vomiting trimethoprim [From Bactrim] Allergy Nausea & Verified 02/28/21 23:14 Vomiting Physical Examination - Vital Signs Vital Signs: Vital Signs Temp Pulse Resp BP Pulse Ox 03/01/21 14:00 70 18 127/70 97 03/01/21 13:00 98.9 F 76 18 121/69 96 03/01/21 12:00 82 18 117/68 98 03/01/21 11:00 80 20 110/67 95 03/01/21 10:00 79 18 110/67 95 03/01/21 09:00 97.6 F 80 18 119/64 94 L 03/01/21 08:00 80 16 117/77 94 L 03/01/21 07:00 75 18 118/65 96 03/01/21 06:00 83 23 113/66 91 L 03/01/21 05:00 78 24 113/62 93 L 03/01/21 04:00 79 23 106/57 91 L 03/01/21 03:00 82 25 H 104/60 92 L 03/01/21 02:00 71 22 99/56 92 L 03/01/21 01:00 72 17 97/59 93 L 03/01/21 00:47 23 03/01/21 00:42 75 19 97/59 92 L 03/01/21 00:00 77 23 102/65 92 L 02/28/21 23:00 74 20 108/59 89 L 02/28/21 22:00 76 22 110/63 93 L 02/28/21 21:00 99.0 F 79 19 107/57 92 L 02/28/21 20:39 87 18 109/65 91 L 02/28/21 20:38 78 26 H 107/57 91 L Intake and Output 03/01/21 03/01/21 03/01/21 06:59 14:59 22:59 Other: Weight 48.988 kg On examination patient is an elderly female, very pleasant, in in no significant distress. Patient is alert and awake. Speech and language functions are normal. No aphasia or dysarthria. Patient knows this is February and the year is 2020. She knows that she is in [facility] in [place], [place]. On cranial nerve exam. Pupils are round and reactive to light, visual pathak are full on confrontation, extraocular muscles are intact with no nystagmus. Face is symmetric, tongue protrudes to the midline. Palatal elevation and sensation normal, hearing and shoulder shrug normal, facial se nsation normal. Patient has very frequent "no-no" head tremor. On muscle strength testing there is no pronator drift. 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 In the lower extremities hip flexion 4+, knee extension 5, ankle dorsiflexion 5, toe extension 3-3+, toe flexion 3-3+. Reflexes are 1 at the biceps, absent brachioradialis. 1 at the knee, absent at the ankles and plantars are flat. Patient has significant peripheral edema. There is no ataxia for [id number] testing, tone is normal. Bulk of muscles overall decreased. Patient appears very cachectic, and very thin built. Patient has some atrophy of the hand and forearm muscles. Gait deferred. On general examination, there is no obvious bruit, S1 and S2 audible, abdomen soft nontender. Patient is peripheral edema, very tender legs. Patient has arthritis. Results - Laboratory Findings CBC and BMP: 02/28/21 21:37 02/28/21 21:37 Abnormal Lab Findings: Abnormal Labs 02/28/21 02/28/21 02/28/21 21:37 21:37 23:40 RBC 3.74 L Hgb 11.0 L Hct 31.9 L RDW 16.3 H Sodium 126 L Potassium 3.0 L Chloride 90 L BUN 20 H Creatinine 0.46 L Calcium 8.1 L AST 48 H Alkaline Phosphatase 155 H Total Protein 4.9 L Albumin 2.6 L Coronavirus (PCR) Detected A Assessment and Plan Assessment: * Frequent falls, probably due to generalized weakness related to acute Covid pneumonia. Patient has decreased reflexes distally in the extremities, with significant weakness of the toe extension and flexion. She probably has peripheral neuropathy contributing to gait imbalance and frequent falls. Patient's examination is otherwise relatively nonfocal. Patient also has a diagnosis of Parkinson's, which probably also is affecting her balance. * Acute Covid 19 infection. * Peripheral arterial disease * Peripheral edema * History of CVA Plan: * We will check B12, folate, hemoglobin A1c. TSH is normal 3.37. * Treatment of Covid as per IM. * Suggest EMG and nerve conduction studies of bilateral lower extremities as outpatient. * Continue dual antiplatelet medication. Her lipids are well controlled, with LDL 84, total cholesterol 134 and HDL 45 on 02/06/2021. * PT and OT.
[2021-03-01] MEDS: ALBUTEROL HFA INHALER INHALATION SCH (22:51)
[2021-03-01] MEDS: SYMBICORT 160-4.5 MCG INHALER INHALATION SCH (22:51)
[2021-03-02 03:29] LABS: Hemoglobin A1C 5.3 % (4.0-6.0)
[2021-03-02 05:29] LABS: Folate, Serum 19.9 ng/mL
[2021-03-02] MEDS: LEVOTHYROXINE 50 MCG TAB PO SCH (05:44)
[2021-03-02] MEDS: ALBUTEROL HFA INHALER INHALATION SCH ×4 (07:51→20:52)
[2021-03-02] MEDS: SYMBICORT 160-4.5 MCG INHALER INHALATION SCH ×2 (07:53→20:53)
[2021-03-02] MEDS: PANTOPRAZOLE 40 MG TABLET PO SCH (09:28)
[2021-03-02] MEDS: CLOPIDOGREL 75 MG TAB PO SCH (09:29)
[2021-03-02] MEDS: CARBIDOPA-LEVODOPA 25-100 MG 1 EACH TAB PO SCH ×3 (09:29→22:32)
[2021-03-02] MEDS: BACLOFEN 10 MG TAB PO SCH ×3 (09:29→22:32)
[2021-03-02] MEDS: ZINC SULFATE 220 MG CAP PO SCH (09:29)
[2021-03-02] MEDS: CYANOCOBALAMIN 500 MCG TAB PO SCH (09:29)
[2021-03-02] MEDS: ASCORBIC ACID 500 MG TAB PO SCH (09:29)
[2021-03-02] MEDS: ASPIRIN 81 MG PO SCH (09:29)
[2021-03-02] MEDS: DEXAMETHASONE SOD PHOSPHATE 10 MG/ML 1 ML VIAL IV SCH (09:30)
[2021-03-02] MEDS: CHOLECALCIFEROL 25 MCG (1000 IU) TABLET PO SCH (09:30)
[2021-03-02] MEDS: METOPROLOL TARTRATE 12.5 MG TAB PO SCH ×2 (09:30→22:32)
[2021-03-02] MEDS: ENOXAPARIN 40 MG/0.4 ML SYRINGE SQ SCH (09:30)
[2021-03-02] MEDS: PRIMIDONE 50 MG TAB PO SCH ×3 (09:30→22:32)
[2021-03-02 10:35] LABS: Anisocytosis Slight; Basophils % (A) 0 %; Eosinophils % (A) 1 %; HCT 35.9 % (34.0-46.0); HGB 11.7 gm/dL (11.4-16.0); Lymphocytes # (A) 0.7 k/uL (1.0-4.8); Lymphocytes % (A) 25 %; MCH 28.4 pg (25.0-35.0); MCHC 32.6 g/dL (31.0-37.0); MCV 87.2 fL (80.0-100.0); Mean Platelet Volume 7.7; Monocytes # (A) 0.2 k/uL (0-1.0); Monocytes % (A) 6 %; Neutrophils % (A) 67 %; Platelet Count 302 k/uL (150-450); RBC 4.11 m/uL (3.80-5.40); RDW 17.1 % (11.5-15.5)
--- NOTE | 2021-03-02 10:43 | P.PN ---
Subjective Progress Note Date: 03/02/21 Principal diagnosis: Weakness and fatigue, falling. 80-year-old female, who presents to the emergency department, brought in by EMS, on February 28. She apparently complained of weakness, and fatigue, with multiple falls. She apparently fell once in the bathroom, and then once subsequent to that while sitting on the bed. She apparently came into the emergency room complaining of diffuse aches and pains including right rib pain, and some issues with her right foot. The patient apparently had a stroke in 2004, and has left- sided weakness as a residual. The patient also has a history of chronic obstructive pulmonary disease, and sees our nurse practitioner in the office for that. She apparently did test positive for coronavirus, and hasn't been feeling well for at least 2 weeks. She has a history of COPD, stroke, hypothyroidism, diverticular disease, depression, hypertension, and nasal septal deviation. She does continue to smoke on a daily basis. Lab data includes a white count of 8.1, hemoglobin 11, hematocrit 31.9, platelet count 339,000. Sodium was 126, p otassium 3, chloride 90, CO2 30, anion gap 6, BUN 20, creatinine 0.46. Brain CT only showed cerebral atrophy, nothing acute. Chest x-ray shows right upper lobe, and right lower lobe pneumonia, which is new. There is also a right-sided rib fracture. X-rays of the right and left knee showed some chronic changes, nothing acute and certainly no fractures. Hip x-rays were negative as well. Progress note dated 03/02/2021. 80-year-old female, that we saw in the emergency department yesterday. She came with complaints of weakness, fatigue, she had multiple falls. X-rays I believe are all negative, although apparently she didn't have a right-sided rib fracture. She also may have a right upper lobe and right lower lobe pneumonia, which may relate to aspiration. Currently, the patient appears to be much more alert and awake today. She is on nasal O2 at 4 L. She is getting saline at 75 mL an hour. White count was 3, hemoglobin 11.7, hematocrit 35.9, platelet count was 302,000. Objective - Vital Signs Vital signs: Vital Signs Temp 97.9 F 03/02/21 07:37 Pulse 70 03/02/21 07:37 Resp 16 03/02/21 07:37 BP 107/63 03/02/21 07:37 Pulse Ox 91 L 03/02/21 07:37 Intake & Output 03/01/21 03/02/21 03/02/21 18:59 06:59 18:59 Intake Total 100 725 Balance 100 725 Weight 48.988 kg Intake: Intake, IV Titration 725 Amount Sodium Chloride 0.9% 1, 725 000 ml @ 75 mls/hr IV . [id number] [facility] Rx#:[id number] Oral 100 Other: Voiding Method Bedpan Bedpan # Voids 1 # Bowel Movements 1 1 - Exam No acute distress, oriented 3. Currently on 4 L nasal cannula, saturations 93%. HEENT examination is grossly unremarkable. . Neck supple. Full range of motion. No adenopathy thyromegaly or neck vein distention. Cardiovascular examination reveals regular rhythm rate. S1-S2 normal. No S3 or S4. No discernible murmur noted. Heart rate 70 bpm. Lungs reveal diffuse rhonchi and scattered crackles. No distinct wheezes. Breath sounds equal bilaterally but diminished throughout. Abdomen soft bowel sounds are heard. No masses or tenderness. Extremities are intact. No cyanosis or clubbing. Lower extremity edema noted. Skin is without rash or lesion. Neurologic examination is brief but nonfocal. The patient has a obvious tremor. - Labs CBC & Chem 7: 02/28/21 21:37 02/28/21 21:37 Assessment and Plan Assessment: Coronavirus infection, with possible COVID 19 pneumonitis. Rule out right-sided bacterial pneumonia. History of COPD, with ongoing tobacco use and nicotine addiction. Chronic hypoxemic respiratory failure. History of CVA. Weakness and fatigue, with multiple falls, and right-sided rib fracture. History of hypertension. History of hypothyroidism. History of diverticular disease. History of depression. Plan: Plan dated 03/01/2021. We will make sure that the patient was placed on appropriate medications for her COPD. In addition, she should be on vitamin C, vitamin D3, and zinc. In addition, she should get Lovenox, and Decadron. We'll check a pro-calcitonin level. We encourage her to stop smoking. A nicotine patch should be a good idea. Additional recommendations and suggestions are forthcoming. Prognosis is guarded. We will continue to follow make recommendations were appropriate. Plan dated 03/02/2021. The patient appears a bit more comfortable today than she did yesterday. The patient was placed on vitamin C, vitamin D3, and zinc. She was also placed on Lovenox, and Decadron. For her COPD, we gave her Symbicort, an albuterol inhaler. We will add Zosyn for possible aspiration pneumonia. Prognosis is guarded. I ordered a pro-calcitonin level, but I don't see on the medical record. Additional recommendations and suggestions are forthcoming. Prognosis is guarded. Time with Patient: Less than 30
[2021-03-02 10:54] LABS: African American GFR (CKD) >90 (>60 ml/min/1.73 sqM); Anion Gap 6 mmol/L; Blood Urea Nitrogen 13 mg/dL (7-17); Calcium 8.1 mg/dL (8.4-10.2); Carbon Dioxide 28 mmol/L (22-30); Chloride 97 mmol/L (98-107); Glucose 148 mg/dL (74-99); Magnesium 1.5 mg/dL (1.6-2.3); Non-African American GFR(CKD) >90 (>60 ml/min/1.73 sqM); Potassium 3.2 mmol/L (3.5-5.1); Sodium 131 mmol/L (137-145)
[2021-03-02] MEDS: PIPERACILLIN-TAZOBACTAM 3.375 GM in SODIUM CHLORIDE 0.9% 100 ML IVPB SCH ×2 (12:19→20:38)
[2021-03-02] MEDS: SODIUM CHLORIDE 0.9% 1,000 ML IV SCH (12:20)
--- NOTE | 2021-03-02 12:50 | P.CNOR ---
History of Present Illness - HPI Consult date: 03/02/21 Consult reason: joint pain History of present illness: Patient is a pleasant 80-year-old female who is currently admitted in regards to coated pneumonia and generalized weakness. We were asked to consult on the p atient due to some swelling and pain at her bilateral knees. The patient says that she has had knee pain for about a year. She has had swelling in her lower extremities bilaterally for approximately a year and this is not significant change for her. She denies any new injury or trauma. She says it hurts under her kneecaps bilaterally equal in bilateral sides she has diffuse swelling in her bilateral lower extremities and the pain extends from her knees and also has pain over her ankles and feet at the dorsum of her feet. She says that she usually gets around with a walker but she has very limited mobility at home. She lives with her son and daughter in law. She says that she tries to get up to a chair and I tries to get around the house in general with her walker but has limited activity beyond that. She denies any prior issues with her knees over a year ago but this has been going on for most of the past year. She denies any specific injury denies any specific trauma. She feels very stiff at her knees when she moves and benefits. She is a smoker. She says she is cut down to 45 cigarettes a day but used to smoke about a pack and a half regularly about a year ago. She does complain currently of some shortness of breath and she is on oxygen. She denies any significant back pain. Denies any changes in bowel bladder function. Review of Systems As stated per HPI. Denies change in bowel bladder function. Denies any acute weakness in her lower extremities but she does have significant stiffness at her knees and ankles and feet bilaterally. She has limited mobility at home but uses a walker for some transfers and getting around the house to small degree. Past Medical History Past Medical History: COPD, CVA/TIA, Hyperlipidemia, Hypertension, Musculoskeletal Disorder, Neurologic Disorder, Osteoarthritis (OA), Pneumonia, Renal Disease, Respiratory Disorder, Rheumatoid Arthritis (RA), Thyroid Disorder Additional Past Medical History / Comment(s): CVAs with L sided weakness, TIAs, home oxygen at 2L/NC ATC, Parkinson's disease, pt states has had irregular heart beat, murmur, diverticular disease, born with one functioning kidney, migraines, bilateral feet edema. History of Any Multi-Drug Resistant Organisms: None Reported Past Surgical History: Adenoidectomy, Appendectomy, Tonsillectomy, Tubal Ligation Additional Past Surgical History / Comment(s): Nasal septal deviation corrected with surgery, colonoscopy. Past Anesthesia/Blood Transfusion Reactions: No Reported Reaction Additional Past Anesthesia/Blood Transfusion Reaction / Comm: Pt has clausterphobia. Smoking Status: Current every day smoker - Past Family History Mother Family Medical History: Pneumonia Father Family Medical History: Myocardial Infarction (GA) Additional Family Medical History / Comment(s): Father of a GA in his 40s. Medications and Allergies Home Medications Medication Instructions Recorded Confirmed Type Clopidogrel Bisulfate [Plavix] 75 mg PO DAILY 01/29/15 02/28/21 History HYDROcodone/APAP 10-325MG [Homer 1 tab PO QID PRN 01/29/15 02/28/21 History 10-325] hydroCHLOROthiazide 25 mg PO DAILY 08/10/18 02/28/21 History Primidone [Mysoline] 50 mg PO TID 01/26/19 02/28/21 History Baclofen [Lioresal] 10 mg PO TID 07/29/19 02/28/21 History Aspirin EC [Ecotrin Low Dose] 81 mg PO DAILY 02/28/21 02/28/21 History Carbidopa-Levodopa 25-100 mg 1 tab PO TID 02/28/21 02/28/21 History [Sinemet 25-100] Fluticasone/Vilanterol [Breo 1 puff INHALATION RT-DAILY 02/28/21 02/28/21 History Ellipta 200-25 Mcg INH] Furosemide [Lasix] 40 mg PO DAILY PRN 02/28/21 02/28/21 History Ipratropium-Albuterol Nebulize 3 ml INHALATION RT-QID PRN 02/28/21 02/28/21 History [Duoneb 0.5 mg-3 mg/3 ml Soln] Levothyroxine Sodium [Synthroid] 50 mcg PO DAILY 02/28/21 02/28/21 History Metoprolol Tartrate [Lopressor] 12.5 mg PO BID 02/28/21 02/28/21 History Potassium Chloride ER [K-Dur 10] 10 meq PO DAILY 02/28/21 02/28/21 History Allergies Allergy/AdvReac Type Severity Reaction Status Date / Time cimetidine [From Tagamet] Allergy Rash/Hives Verified 02/28/21 23:14 cimetidine HCl [From Tagamet] Allergy Rash/Hives Verified 02/28/21 23:14 prednisone Allergy Swelling Verified 02/28/21 23:14 sulfamethoxazole Allergy Nausea & Verified 02/28/21 23:14 [From Bactrim] Vomiting trimethoprim [From Bactrim] Allergy Nausea & Verified 02/28/21 23:14 Vomiting Physical Examination Osteopathic Statement: *. No significant issues noted on an osteopathic structural exam other than those noted in the History and Physical/Consult. - Knee bilateral Appearance: effusion (Bilateral knees have some effusion. There is some effusion at her ankles and feet as well. There is no erythema. She has limited motion with flexion due to pain underneath her patellas. She has great stiffness at her quadriceps and hamstrings. There is no specific tenderness but she has diffuse) Effusion grade: grade 1 (Bilateral effusion. There is some diffuse tenderness over her bony prominences at her proximal tibia and patella. An medial lateral condyles bilaterally. Her ankles and feet have tenderness dorsally over her midfoot and forefoot. There is swelling in her bilateral feet. There is no erythema. S) Pain: throughout ROM (She has very stiff range of motion of her knees but she is able to lift her legs up off the bed independently. She is able to flex her legs only to about 30 independently. This is bilateral. She has full extens ion.) Results - Labs Labs: Abnormal Lab Results - Last 24 Hours (Table) 03/02/21 03/02/21 Range/Units 10:01 10:01 WBC 3.0 L (3.8-10.6) k/uL RDW 17.1 H (11.5-15.5) % Lymphocytes # 0.7 L (1.0-4.8) k/uL Sodium 131 L (137-145) mmol/L Potassium 3.2 L (3.5-5.1) mmol/L Chloride 97 L (98-107) mmol/L Creatinine 0.37 L (0.52-1.04) mg/dL Glucose 148 H (74-99) mg/dL Calcium 8.1 L (8.4-10.2) mg/dL Magnesium 1.5 L (1.6-2.3) mg/dL H & H 02/28/21 03/02/21 Range/Units 21:37 10:01 Hgb 11.0 L 11.7 (11.4-16.0) gm/dL Hct 31.9 L 35.9 (34.0-46.0) % Result Diagrams: 03/02/21 10:01 03/02/21 10:01 - Diagnostic results Knee x-ray: report reviewed, image reviewed (Bilateral knee x-rays show diffuse osteopenia. There is no evidence of obvious fracture. There is effusion bilaterally.) Assessment and Plan Assessment: Chronic bilateral knee pain with generalized weakness Bilateral lower extremity spasm at the quadriceps and hamstrings with limited motion in her knees and ankles feet No obvious fracture at her knees or feet Chronic effusion of bilateral knees without obvious source Chronic bilateral lower extremity edema Covid pneumonia with some respiratory insufficiency requiring oxygen Generalized weakness History of cerebral vascular accident with some hemiparesis Plan: Chronic bilateral knee pain with generalized weakness Bilateral lower extremity spasm at the quadriceps and hamstrings with limited motion in her knees and ankles feet No obvious fracture at her knees or feet Chronic effusion of bilateral knees without obvious source Chronic bilateral lower extremity edema Covid pneumonia with some respiratory insufficiency requiring oxygen Generalized weakness History of cerebral vascular accident with some hemiparesis The patient has had chronic knee pain with some effusion for almost a year. She is not having any new issues or symptoms with this but is having some debility due to her stiffness at her knees ankles and feet and limited mobility. With her current infectious status I would not plan acute intervention or injections as this may lead to potential infection at her joints themselves. She has great stiffness and spasm at her quadriceps and hamstrings bilaterally. She could do well with some generalized physical therapy to help her mobilization and stretching at her lower extremities. She has generalized weakness due to her limited mobility and she may be able to gain some further mobility status with focus physical therapy here in Hospital and then as an active therapy treatment on outpatient basis. Currently from an orthopedic standpoint I do not have plans for surgical intervention or new imaging at this point. It is okay for her to weight-bear as tolerated and to try to gain some mobility and motion lower extremities. We can follow her up on an as-needed basis.
[2021-03-02] MEDS ORDERED: Magnesium Replacement Protocol 1 EACH MISC MISCELLANE PRN (13:21)
[2021-03-02] MEDS ORDERED: Potassium Replacement Protocol 1 EACH MISC MISCELLANE PRN (13:21)
--- NOTE | 2021-03-02 13:31 | P.PN ---
Subjective This is a pleasant 80 years old female with past medical history of COPD, CVA/TIA, hypertension, hypothyroidism, depression, diverticular disease. She is a patient of Dr. Mcnulty and follow-up with Dr. Castillo for her Parkinson disease also she sees Hayley for her COPD. She is on home oxygen of 2 L/m Patient presents because of frequent falls, she fell 3 times over the last 2 days without syncope or dizziness. She fell once the pectoralis/hour, another time in her bathroom against well after time when she was trying drinking her workup of her bed. Since yesterday patient also was complaining of from pain in both hip areas radiating to both knees. On some pain in the middle of her back. She has bilateral knee pain going down to the feet. Her knees are swollen bilaterally but also she was recently treated with Medrol dosepack for her r heumatoid arthritis of her joints and elbow as they were painful and swollen. She is fully awake and oriented. Also patient was complaining of from right side chest pain, associated with cough and phlegm about 3 days duration but no dyspnea. However patient at baseline and uses a walker He smokes 5 cigarettes a day, patient is counseled to quit but she declined, she declined nicotine patch as well. She denies alcohol or illicit drug she was history of stroke in 2004 with mild left hemiparesis however recently noticed some weakness in her right side as well Both feet are swollen Vitas looks stable and patient saturating 94% on 4 L oxygen via nasal cannula. Afebrile. CBC is unremarkable, sodium is low at 126, potassium 3. Creatinine 0.4. Liver enzymes significantly elevated.senior virus detected CXR: Right upper lobe and right lower lobe pneumonia, right-sided rib fracture CT of brain: Cerebral atrophy. No acute intracranial abnormality In the emergency room patient was started on Zithromax and ceftriaxone 1, and continue to normal sinus 75 mL/h 03/02/2021 Patient is seen in the general medical floor, she still short of breath with coughing and some yellow phlegm and right-sided chest pain. On exam she has decreased air entry on both sides, pulmonary already put her on inhaled steroids and bronchodilators. Also she is on 4 L oxygen via nasal cannula to keep saturation more than 90%. Her pelvic and hip x-ray showing no fracture. Bilateral knee x-ray showing no fracture but large effusion, it looks chronic, orthopedic team were consulted and there is no plan for surgical intervention and they recommended physical therapy as an outpatient. Also neurologist evaluated the patient yesterday and recommended no further intervention as patient following his due to her infection besides debility and Parkinson disease. The Zosyn has been placed for possible aspiration pneumonia. Broadcalcitonin is pending. We will ask for speech evaluation on Thursday Low magnesium and potassium replaced per protocol. Sputum culture is requested. She remains on normal saline at 75 mL/h, vitamin C, vitamin D and zinc. Vitamin B12 is borderline and low dose replacement displaced. Review of Systems CONSTITUTIONAL: No fever, no malaise, no fatigue. HEENT: No recent visual problems or hearing problems. Denied any sore throat. CARDIOVASCULAR: No orthopnea, PND, no palpitations, no syncope. PULMONARY: No upper respiratory infection symptoms, no hemoptysis. GASTROINTESTINAL: No diarrhea, no nausea, no vomiting, no abdominal pain. Normoactive bowel sounds. NEUROLOGICAL: No headaches, no weakness, no numbness. Active Medications Generic Name Dose Route Start Last Admin Trade Name Freq PRN Reason Stop Dose Admin Acetaminophen 650 mg 02/28/21 22:32 03/01/21 20:18 Acetaminophen Tab 325 Mg Tab PO 650 mg Q6HR PRN Administration Mild Pain or Fever > 100.5 Albuterol Sulfate 2 puff 03/01/21 20:00 03/02/21 12:00 Albuterol Hfa Inhaler INHALATION 2 puff RT-QID NERI Administration Albuterol Sulfate 2 puff 03/01/21 17:35 Albuterol Hfa Inhaler INHALATION RT-QID PRN Shortness Of Breath Or Wheezing Ascorbic Acid 1,000 mg 03/01/21 12:30 03/02/21 09:29 Ascorbic Acid 500 Mg Tab PO 1,000 mg DAILY NERI Administration Aspirin 81 mg 03/02/21 09:00 03/02/21 09:29 Aspirin 81 Mg PO 81 mg DAILY NERI Administration Baclofen 10 mg 03/01/21 16:00 03/02/21 09:29 Baclofen 10 Mg Tab PO 10 mg TID NERI Administration Budesonide/Formoterol Fumarate 2 puff 03/01/21 20:00 03/02/21 07:53 Symbicort 160-4.5 Mcg Inhaler INHALATION 2 puff RT-BID NERI Administration Carbidopa/Levodopa 1 each 03/01/21 16:00 03/02/21 09:29 Carbidopa-Levodopa 25-100 Mg 1 Each Tab PO 1 each TID NERI Administration Cholecalciferol 50 mcg 03/01/21 12:30 03/02/21 09:30 Cholecalciferol 25 Mcg (1000 Iu) Tablet PO 50 mcg DAILY NERI Administration Clopidogrel Bisulfate 75 mg 03/02/21 09:00 03/02/21 09:29 Clopidogrel 75 Mg Tab PO 75 mg DAILY NERI Administration Cyanocobalamin 500 mcg 03/02/21 09:00 03/02/21 09:29 Cyanocobalamin 500 Mcg Tab PO 500 mcg DAILY NERI Administration Dexamethasone Sodium Phosphate 6 mg 03/01/21 14:50 03/02/21 09:30 Dexamethasone Sod Phosphate 10 Mg/Ml 1 Ml Vial IV 6 mg DAILY NERI Administration Enoxaparin Sodium 40 mg 03/01/21 12:30 03/02/21 09:30 Enoxaparin 40 Mg/0.4 Ml Syringe SQ 40 mg DAILY NERI Administration Sodium Chloride 1,000 mls @ 75 mls/hr 02/28/21 22:45 03/02/21 12:20 Saline 0.9% IV 75 mls/hr .[id number] NERI Administration Piperacillin Sod/Tazobactam 100 mls @ 25 mls/hr 03/02/21 12:00 03/02/21 12:19 Sod 3.375 gm/ Sodium Chloride IVPB 25 mls/hr Q8H NERI Administration Levothyroxine Sodium 50 mcg 03/02/21 06:30 03/02/21 05:44 Levothyroxine 50 Mcg Tab PO 50 mcg DAILY@0630 NERI Administration Metoprolol Tartrate 12.5 mg 03/01/21 21:00 03/02/21 09:30 Metoprolol Tartrate 12.5 Mg Tab PO 12.5 mg BID NERI Administration Miscellaneous Information 1 each 03/02/21 13:21 Magnesium Replacement Protocol 1 Each Misc MISCELLANE DAILY PRN Per Protocol Protocol Miscellaneous Information 1 each 03/02/21 13:21 Potassium Replacement Protocol 1 Each Misc MISCELLANE DAILY PRN Per Protocol Protocol Naloxone HCl 0.2 mg 02/28/21 22:32 Naloxone 0.4 Mg/Ml 1 Ml Vial IV Q2M PRN Opioid Reversal Pantoprazole Sodium 40 mg 03/01/21 12:30 03/02/21 09:28 Pantoprazole 40 Mg Tablet PO 40 mg [id number] NERI Administration Primidone 50 mg 03/01/21 16:00 03/02/21 09:30 Primidone 50 Mg Tab PO 50 mg TID NERI Administration Zinc Sulfate 220 mg 03/01/21 12:30 03/02/21 09:29 Zinc Sulfate 220 Mg Cap PO 220 mg DAILY NERI Administration Objective - Vital Signs Vital signs: Vital Signs Temp 97.9 F 03/02/21 07:37 Pulse 70 03/02/21 07:37 Resp 16 03/02/21 07:37 BP 107/63 03/02/21 07:37 Pulse Ox 91 L 03/02/21 07:37 Intake & Output 03/01/21 03/02/21 03/02/21 18:59 06:59 18:59 Intake Total 100 725 Balance 100 725 Weight 48.988 kg Intake: Intake, IV Titration 725 Amount Sodium Chloride 0.9% 1, 725 000 ml @ 75 mls/hr IV . [id number] NERI Rx#:[id number] Oral 100 Other: Voiding Method Bedpan Bedpan # Voids 1 # Bowel Movements 1 1 - Exam -GENERAL: The patient is alert and oriented x3, not in any acute distress. Thin built HEENT: Pupils are round and equally reacting to light. EOMI. No scleral icterus. No conjunctival pallor. Normocephalic, atraumatic. No pharyngeal erythema. No thyromegaly. CARDIOVASCULAR: S1 and S2 present. No murmurs, rubs, or gallops. PULMONARY: Chest is clear to auscultation, no wheezing or crackles. ABDOMEN: Soft, nontender, nondistended, normoactive bowel sounds. No palpable organomegaly. -MUSCULOSKELETAL: No joint swelling or deformity. Both knees are swollen and tender, no warmth or redness. Interphalangeal joints of the fingers are mildly swollen -EXTREMITIES: No cyanosis, clubbing, . No leg edema but Bilateral pedal edema. NEUROLOGICAL: Gross neurological examination did not reveal any focal deficits. SKIN: No rashes. No petechiae - Labs CBC & Chem 7: 03/02/21 10:01 03/02/21 10:01 Labs: Abnormal Lab Results - Last 24 Hours (Table) 03/02/21 03/02/21 Range/Units 10:01 10:01 WBC 3.0 L (3.8-10.6) k/uL RDW 17.1 H (11.5-15.5) % Lymphocytes # 0.7 L (1.0-4.8) k/uL Sodium 131 L (137-145) mmol/L Potassium 3.2 L (3.5-5.1) mmol/L Chloride 97 L (98-107) mmol/L Creatinine 0.37 L (0.52-1.04) mg/dL Glucose 148 H (74-99) mg/dL Calcium 8.1 L (8.4-10.2) mg/dL Magnesium 1.5 L (1.6-2.3) mg/dL Assessment and Plan Assessment: Multiple falls and generalized weakness Right side upper and lower lobe Pneumonia, with mild to moderate right pleural effusion Acute covid infection Acute hypoxic respiratory failure secondary to above. On chronic respiratory failure multiple joint pains including both hip, both knees and back secondary to fall Mild hyponatremia [id number] protein calorie malnutrition Hypertension Hypothyroidism COPD, not in acute exacerbation. Chronic hypoxic respiratory failure history of CVA/TIA History of depression, not active issue History of diverticular disease Plan: This is a pleasant 80 years old female who presents with right-sided pneumonia, Covid infection. Continue with Zosyn. Start multiple vitamins for Covid. Follow-up culture results. Lovenox, Pulmonary consult. Neurologist and orthopedic recommended no further intervention and follow-up as an outpatient. Speech evaluation Dietary consult Labs and medication were reviewed.. Continue same treatment. Continue with symptomatic treatment. Resume home medication. Monitor lytes and vitals. DVT and GI prophylaxis. Further recommendations depends on the clinical course of the patient DVT prophylaxis: Subcutaneous Lovenox GI Prophylaxis: Pepcid PT/OT: Pending Prognosis is guarded
[2021-03-02] MEDS: POTASSIUM CHLORIDE ER 20 MEQ TAB.ER PO SCH ×2 (22:33→23:28)
[2021-03-02] MEDS: ACETAMINOPHEN TAB 325 MG TAB PO PRN (23:28)
[2021-03-03] MEDS: PIPERACILLIN-TAZOBACTAM 3.375 GM in SODIUM CHLORIDE 0.9% 100 ML IVPB SCH ×3 (04:55→19:51)
[2021-03-03] MEDS: ACETAMINOPHEN TAB 325 MG TAB PO PRN ×2 (05:13→11:49)
[2021-03-03] MEDS: LEVOTHYROXINE 50 MCG TAB PO SCH (05:13)
[2021-03-03] MEDS: SODIUM CHLORIDE 0.9% 1,000 ML IV SCH ×2 (05:16→15:55)
[2021-03-03] MEDS: DEXAMETHASONE SOD PHOSPHATE 10 MG/ML 1 ML VIAL IV SCH (08:38)
[2021-03-03] MEDS: ENOXAPARIN 40 MG/0.4 ML SYRINGE SQ SCH (08:39)
[2021-03-03] MEDS: ASPIRIN 81 MG PO SCH (08:40)
[2021-03-03] MEDS: ASCORBIC ACID 500 MG TAB PO SCH (08:40)
[2021-03-03] MEDS: BACLOFEN 10 MG TAB PO SCH ×3 (08:40→19:49)
[2021-03-03] MEDS: METOPROLOL TARTRATE 12.5 MG TAB PO SCH ×2 (08:40→19:48)
[2021-03-03] MEDS: CLOPIDOGREL 75 MG TAB PO SCH (08:40)
[2021-03-03] MEDS: PANTOPRAZOLE 40 MG TABLET PO SCH (08:40)
[2021-03-03] MEDS: CHOLECALCIFEROL 25 MCG (1000 IU) TABLET PO SCH (08:40)
[2021-03-03] MEDS: CYANOCOBALAMIN 500 MCG TAB PO SCH (08:40)
[2021-03-03] MEDS: SYMBICORT 160-4.5 MCG INHALER INHALATION SCH ×2 (08:47→20:22)
[2021-03-03] MEDS: ALBUTEROL HFA INHALER INHALATION SCH ×4 (08:47→20:22)
--- NOTE | 2021-03-03 09:10 | XR ---
EXAMINATION TYPE: XR chest 1V portable DATE OF EXAM: 03/03/2021 COMPARISON: 02/28/2021 INDICATION: Shortness of breath TECHNIQUE: Single frontal view of the chest is obtained. FINDINGS: The heart size is normal. The pulmonary vasculature is normal. Each infiltrates are in the bilateral lung bases. Small left pleural effusion is present. Minimal rig ht pleural effusion is not excluded. Some focal infiltrate is at the right apex. IMPRESSION: 1. Patchy bilateral lung infiltrates can be compatible with atypical pneumonia.
[2021-03-03 09:54] LABS: Anisocytosis Slight; Basophils % (A) 0 %; Eosinophils % (A) 0 %; HCT 35.3 % (34.0-46.0); HGB 11.8 gm/dL (11.4-16.0); Lymphocytes % (A) 18 %; MCHC 33.5 g/dL (31.0-37.0); MCV 86.4 fL (80.0-100.0); Mean Platelet Volume 7.7; Monocytes # (A) 0.2 k/uL (0-1.0); Monocytes % (A) 4 %; Neutrophils # (A) 4.5 k/uL (1.3-7.7); Neutrophils % (A) 78 %; Platelet Count 269 k/uL (150-450); RBC 4.08 m/uL (3.80-5.40); RDW 16.8 % (11.5-15.5); WBC 5.8 k/uL (3.8-10.6)
[2021-03-03 10:13] LABS: African American GFR (CKD) >90 (>60 ml/min/1.73 sqM); Anion Gap 4 mmol/L; Blood Urea Nitrogen 11 mg/dL (7-17); Calcium 8.1 mg/dL (8.4-10.2); Carbon Dioxide 29 mmol/L (22-30); Chloride 101 mmol/L (98-107); Glucose 71 mg/dL (74-99); LDH 461 U/L (313-618); Magnesium 1.5 mg/dL (1.6-2.3); Non-African American GFR(CKD) >90 (>60 ml/min/1.73 sqM); Potassium 3.7 mmol/L (3.5-5.1); Sodium 134 mmol/L (137-145)
[2021-03-03] MEDS: ZINC SULFATE 220 MG CAP PO SCH (10:16)
[2021-03-03] MEDS: CARBIDOPA-LEVODOPA 25-100 MG 1 EACH TAB PO SCH ×3 (10:26→19:49)
[2021-03-03] MEDS: PRIMIDONE 50 MG TAB PO SCH ×3 (10:26→19:49)
[2021-03-03 10:27] LABS: C Reactive Protein 49.6 mg/L (<10.0)
[2021-03-03] MEDS: methylPREDNISolone SOD SUCCI 125 MG/2 ML VIAL IV SCH ×3 (11:34→22:42)
--- NOTE | 2021-03-03 13:04 | P.PN ---
Subjective Progress Note Date: 03/03/21 Principal diagnosis: Weakness, fatigue, falling, cough, chest congestion 80-year-old female, who presents to the emergency department, brought in by EMS, on February 28. She apparently complained of weakness, and fatigue, with multiple falls. She apparently fell once in the bathroom, and then once subsequent to that while sitting on the bed. She apparently came into the emergency room complaining of diffuse aches and pains including right rib pain, and some issues with her right foot. The patient apparently had a stroke in 2004, and has left- sided weakness as a residual. The patient also has a history of chronic obstructive pulmonary disease, and sees our nurse practitioner in the office for that. She apparently did test positive for coronavirus, and hasn't been feeling well for at least 2 weeks. She has a history of COPD, stroke, hypothyroidism, diverticular disease, depression, hypertension, and nasal septal deviation. She does continue to smoke on a daily basis. Lab data includes a white count of 8.1, hemoglobin 11, hematocrit 31.9, platelet count 339,000. Sodium was 126, potassium 3, chloride 90, CO2 30, anion gap 6, BUN 20, creatinine 0.46. Brain CT only showed cerebral atrophy, nothing acute. Chest x-ray shows right upper lobe, and right lower lobe pneumonia, which is new. There is also a right-sided rib fracture. X-rays of the right and left knee showed some chronic changes, nothing acute and certainly no fractures. Hip x-rays were negative as well. Progress note dated 03/02/2021. 80-year-old female, that we saw in the emergency department yesterday. She came with complaints of weakness, fatigue, she had multiple falls. X-rays I believe are all negative, although apparently she didn't have a right-sided rib fracture. She also may have a right upper lobe and right lower lobe pneumonia, which may relate to aspiration. Currently, the patient appears to be much more alert and awake today. She is on nasal O2 at 4 L. She is getting saline at 75 mL an hour. White count was 3, hemoglobin 11.7, hematocrit 35.9, platelet count was 302,000. On 03/03/2021 patient seen in follow-up on medical floor, she is currently on 8 L of oxygen pulse ox of 91%, is very congested, her chest is rattly. She is weak, she states she is able to bring up some phlegm which is usually white or light yellow, trace chest x-ray shows patchy bilateral lung infiltrates. Today's labs have been noted, white blood cell count is 5.8, hemoglobin is 11.8, d-dimer is 2.67, sodium is improving, up to 134, rest of electrolytes were within normal limits, BUN is 11 creatinine 0.48. CRP is 49.6, LDH is 461. Pro- calcitonin level is 0.32. Patient continues on inhalers, she continues on Zosyn, IV hydration with 0.9 normal saline at a rate of 75 ML per hour, and Decadron 6 mg daily in addition to vitamins. Objective - Vital Signs Vital signs: Vital Signs Temp 98.0 F 03/03/21 08:46 Pulse 77 03/03/21 08:31 Resp 20 03/03/21 08:31 BP 119/61 03/03/21 08:31 Pulse Ox 91 L 03/03/21 08:31 Intake & Output 03/02/21 03/03/21 03/03/21 18:59 06:59 18:59 Intake Total 1450 1025 Balance 1450 1025 Intake: Intake, IV Titration 700 925 Amount Piperacillin-Tazobactam 3 100 200 .375 gm In Sodium Chloride 0.9% 100 ml @ 25 mls/hr IVPB Q8H [facility] Rx#: [id number] Sodium Chloride 0.9% 1, 600 725 000 ml @ 75 mls/hr IV . [id number] [facility] Rx#:[id number] Oral 750 100 Other: Voiding Method Bedpan Bedpan # Voids 4 2 2 # Bowel Movements 2 1 1 - Exam GENERAL EXAM: Alert, very pleasant 80-year-old white female, and 8 L of oxygen a pulse ox of 91%, she is very frail, debilitated, weak looking, chronically ill-looking, recurrent congestive cough, sometimes productive comfortable in no apparent distress. HEAD: Normocephalic/atraumatic. EYES: Normal reaction of pupils, equal size. Conjunctiva pink, sclera white. NOSE: Clear with pink turbinates. THROAT: No erythema or exudates. NECK: No masses, no JVD, no thyroid enlargement, no adenopathy. CHEST: No chest wall deformity. Symmetrical expansion. LUNGS: Equal air entry with diffuse rhonchi, and wheezes CVS: Regular rate and rhythm, normal S1 and S2, no gallops, no murmurs, no rubs ABDOMEN: Soft, nontender. No hepatosplenomegaly, normal bowel sounds, no guarding or rigidity. EXTREMITIES: No clubbing, no edema, no cyanosis, 2+ pulses and upper and lower extremities. MUSCULOSKELETAL: Muscle strength and tone normal. SPINE: No scoliosis or deformity SKIN: No rashes CENTRAL NERVOUS SYSTEM: Alert and oriented -3. No focal deficits, tone is normal in all 4 extremities. PSYCHIATRIC: Alert and oriented -3. Appropriate affect. Intact judgment and insight. - Labs CBC & Chem 7: 03/03/21 09:21 03/03/21 09:21 Labs: Abnormal Lab Results - Last 24 Hours (Table) 03/02/21 03/03/21 03/03/21 Range/Units 10:01 09:21 09:21 RDW (11.5-15.5) % D-Dimer 2.67 H (<0.60) mg/L FEU Sodium 134 L (137-145) mmol/L Creatinine 0.48 L (0.52-1.04) mg/dL Glucose 71 L (74-99) mg/dL Calcium 8.1 L (8.4-10.2) mg/dL Magnesium 1.5 L (1.6-2.3) mg/dL C-Reactive Protein 49.6 H (<10.0) mg/L Procalcitonin 0.32 H (0.02-0.09) ng/mL 03/03/21 Range/Units 09:21 RDW 16.8 H (11.5-15.5) % D-Dimer (<0.60) mg/L FEU Sodium (137-145) mmol/L Creatinine (0.52-1.04) mg/dL Glucose (74-99) mg/dL Calcium (8.4-10.2) mg/dL Magnesium (1.6-2.3) mg/dL C-Reactive Protein (<10.0) mg/L Procalcitonin (0.02-0.09) ng/mL Microbiology - Last 24 Hours (Table) 03/02/21 13:40 Gram Stain - Preliminary Sputum Sputum Culture - Preliminary Assessment and Plan Plan: Assessment: #1. Acute on chronic hypoxic respiratory failure related to acute COVID 19 related to pneumonia #2. Acute exacerbation of COPD #3. Chronic and ongoing history of tobacco use and nicotine addiction #4. She of CVA #5. Weakness and fatigue with multiple falls and right-sided rib fracture #6. History of hypertension #7. Hypothyroidism #8. History of diverticular disease #9. History of depression Plan: We'll switch Decadron to IV Solu-Medrol, continue supportive treatment, continue current dose Lovenox, proCalcitrol level was noted however in view of coughing with phlegm production and acute COPD exacerbation with tracheobronchitis will continue with empiric antibiotics form of Zosyn. Send a sputum culture. Continue to follow on a daily basis and make further recommendations I performed a history & physical examination of the patient and discussed their management with my nurse practitioner, Sharon Auguste. I reviewed the nurse practitioner's note and agree with the documented findings and plan of care. Lung sounds are positive for diffuse wheezes throughout the lung pathak. The findings and the impression was discussed with the patient. I attest to the documentation by the nurse practitioner. Time with Patient: Less than 30
--- NOTE | 2021-03-03 16:08 | P.PN ---
Subjective Progress Note Date: 03/03/21 The patient is an 80-year-old female who is seen in neurologic follow- up on March 03, 2021 via teleneurology. According to the patient's RN, the patient seems to be doing worse, regarding her respiratory status. She is now up to 8 L nasal cannula O2. Her extremities are markedly rigid. She has been unable to get out of bed, even to sit in a chair. She spends most of her time sleeping. Objective - Vital Signs Vital signs: Vital Signs Temp 98.0 F 03/03/21 08:46 Pulse 77 03/03/21 08:31 Resp 20 03/03/21 08:31 BP 119/61 03/03/21 08:31 Pulse Ox 91 L 03/03/21 08:31 Intake & Output 03/02/21 03/03/21 03/03/21 18:59 06:59 18:59 Intake Total 1450 1025 Balance 1450 1025 Intake: Intake, IV Titration 700 925 Amount Piperacillin-Tazobactam 3 100 200 .375 gm In Sodium Chloride 0.9% 100 ml @ 25 mls/hr IVPB Q8H [facility] Rx#: [id number] Sodium Chloride 0.9% 1, 600 725 000 ml @ 75 mls/hr IV . [id number] [facility] Rx#:[id number] Oral 750 100 Other: Voiding Method Bedpan Bedpan # Voids 4 2 2 # Bowel Movements 2 1 1 - Exam Gen.: Patient is reclining in the bed. She is wearing nasal cannula O2, 8 L. She is in mild distress. HEENT: Head is atraumatic, normocephalic. Fundus not visualized. There is no scleral icterus. Mucous membranes are moist Neck: Supple Lungs: Rhonchi can be heard, without a stethoscope. The patient has a loose, productive cough Neurological examination Mental status: The patient is awake, alert and oriented 3. Her speech is clear. Cranial nerves: 2-12 grossly intact. The patient has full facial expression and a normal blink rate. Abnormal movements: Patient has a resting tremor of the head. She has a bilateral intention tremor of the upper extremities. Motor: Marked increased tone throughout - Labs CBC & Chem 7: 03/03/21 09:21 03/03/21 09:21 Labs: Abnormal Lab Results - Last 24 Hours (Table) 03/02/21 03/03/21 03/03/21 Range/Units 10:01 09:21 09:21 RDW (11.5-15.5) % D-Dimer 2.67 H (<0.60) mg/L FEU Sodium 134 L (137-145) mmol/L Creatinine 0.48 L (0.52-1.04) mg/dL Glucose 71 L (74-99) mg/dL Calcium 8.1 L (8.4-10.2) mg/dL Magnesium 1.5 L (1.6-2.3) mg/dL C-Reactive Protein 49.6 H (<10.0) mg/L Procalcitonin 0.32 H (0.02-0.09) ng/mL 03/03/21 Range/Units 09:21 RDW 16.8 H (11.5-15.5) % D-Dimer (<0.60) mg/L FEU Sodium (137-145) mmol/L Creatinine (0.52-1.04) mg/dL Glucose (74-99) mg/dL Calcium (8.4-10.2) mg/dL Magnesium (1.6-2.3) mg/dL C-Reactive Protein (<10.0) mg/L Procalcitonin (0.02-0.09) ng/mL Microbiology - Last 24 Hours (Table) 03/02/21 13:40 Gram Stain - Preliminary Sputum Sputum Culture - Preliminary Assessment and Plan Assessment: 1. Increased weakness and falls, likely secondary to Covid 19 infection and increased spasticity of the lower extremities 2. History of Parkinson's disease Plan: 1. Continue your treatment for infection 2. Continue Sinemet and baclofen for Parkinson's disease and related spasticity 3. Patient will likely need rehabilitation for gait training and strengthening Time with Patient: Less than 30 (spent 20 minutes with the patient via teleneurology)
[2021-03-04] MEDS: ACETAMINOPHEN TAB 325 MG TAB PO PRN ×3 (01:47→20:02)
--- NOTE | 2021-03-04 02:02 | P.PN ---
Subjective This is a pleasant 80 years old female with past medical history of COPD, CVA/TIA, hypertension, hypothyroidism, depression, diverticular disease. She is a patient of Dr. Mcnulty and follow-up with Dr. Castillo for her Parkinson disease also she sees Hayley for her COPD. She is on home oxygen of 2 L/m Patient presents because of frequent falls, she fell 3 times over the last 2 days without syncope or dizziness. She fell once the pectoralis/hour, another time in her bathroom against well after time when she was trying drinking her workup of her bed. Since yesterday patient also was complaining of from pain in both hip areas radiating to both knees. On some pain in the middle of her back. She has bilateral knee pain going down to the feet. Her knees are swollen bilaterally but also she was recently treated with Medrol dosepack for her r heumatoid arthritis of her joints and elbow as they were painful and swollen. She is fully awake and oriented. Also patient was complaining of from right side chest pain, associated with cough and phlegm about 3 days duration but no dyspnea. However patient at baseline and uses a walker He smokes 5 cigarettes a day, patient is counseled to quit but she declined, she declined nicotine patch as well. She denies alcohol or illicit drug she was history of stroke in 2004 with mild left hemiparesis however recently noticed some weakness in her right side as well Both feet are swollen Vitas looks stable and patient saturating 94% on 4 L oxygen via nasal cannula. Afebrile. CBC is unremarkable, sodium is low at 126, potassium 3. Creatinine 0.4. Liver enzymes significantly elevated.senior virus detected CXR: Right upper lobe and right lower lobe pneumonia, right-sided rib fracture CT of brain: Cerebral atrophy. No acute intracranial abnormality In the emergency room patient was started on Zithromax and ceftriaxone 1, and continue to normal sinus 75 mL/h 03/02/2021 Patient is seen in the general medical floor, she still short of breath with coughing and some yellow phlegm and right-sided chest pain. On exam she has decreased air entry on both sides, pulmonary already put her on inhaled steroids and bronchodilators. Also she is on 4 L oxygen via nasal cannula to keep saturation more than 90%. Her pelvic and hip x-ray showing no fracture. Bilateral knee x-ray showing no fracture but large effusion, it looks chronic, orthopedic team were consulted and there is no plan for surgical intervention and they recommended physical therapy as an outpatient. Also neurologist evaluated the patient yesterday and recommended no further intervention as patient following his due to her infection besides debility and Parkinson disease. The Zosyn has been placed for possible aspiration pneumonia. Broadcalcitonin is pending. We will ask for speech evaluation on Thursday Low magnesium and potassium replaced per protocol. Sputum culture is requested. She remains on normal saline at 75 mL/h, vitamin C, vitamin D and zinc. Vitamin B12 is borderline and low dose replacement displaced. R date of service for this note is 03/03/2021 She was seen and examined by me at bedside. Patient feels better with no coughing and this chest pain, pleuritic. Dyspnea improving over this not resolve at rest, she is not ambulating most of the time. An exam she has decreased air entry and her oxygen requirements went up to 8 L/m, most likely patient have acute COPD exacerbation and patient was placed on Solu-Medrol 60 mg. Rather than Decadron. Her labs look stable and sodium improved. Pulmonary and neurology on board, patient might benefit from ECF for inpatient rehab upon discharge. Patient to continue with the Plavix, Solu-Medrol 60 mg, empiric treatment with Zosyn and normal saline at 75 mL/h together with vitamin C, D and zinc Follow-up sputum culture results Objective - Vital Signs Vital signs: Vital Signs Temp 98.2 F 03/03/21 20:00 Pulse 67 03/03/21 20:00 Resp 22 03/03/21 22:23 BP 117/68 03/03/21 20:00 Pulse Ox 92 L 03/03/21 22:16 Intake & Output 03/03/21 03/03/21 03/04/21 06:59 18:59 06:59 Intake Total 1025 325 Output Total 600 Balance 1025 325 -600 Intake: IV 325 Piperacillin-Tazobactam 3 100 .375 gm In Sodium Chloride 0.9% 100 ml @ 25 mls/hr IVPB Q8H [facility] Rx#: [id number] Sodium Chloride 0.9% 1, 225 000 ml @ 75 mls/hr IV . [id number] [facility] Rx#:[id number] Intake, IV Titration 925 Amount Piperacillin-Tazobactam 3 200 .375 gm In Sodium Chloride 0.9% 100 ml @ 25 mls/hr IVPB Q8H [facility] Rx#: [id number] Sodium Chloride 0.9% 1, 725 000 ml @ 75 mls/hr IV . [id number] [facility] Rx#:[id number] Oral 100 Output: Urine 600 Other: Voiding Method Bedpan Bedpan # Voids 2 4 1 # Bowel Movements 1 1 - Exam -GENERAL: The patient is alert and oriented x3, not in any acute distress. Thin built HEENT: Pupils are round and equally reacting to light. EOMI. No scleral icterus. No conjunctival pallor. Normocephalic, atraumatic. No pharyngeal erythema. No thyromegaly. CARDIOVASCULAR: S1 and S2 present. No murmurs, rubs, or gallops. PULMONARY: Chest is clear to auscultation, no wheezing or crackles. ABDOMEN: Soft, nontender, nondistended, normoactive bowel sounds. No palpable organomegaly. -MUSCULOSKELETAL: No joint swelling or deformity. Both knees are swollen and tender, no warmth or redness. Interphalangeal joints of the fingers are mildly swollen -EXTREMITIES: No cyanosis, clubbing, . No leg edema but Bilateral pedal edema. NEUROLOGICAL: Gross neurological examination did not reveal any focal deficits. SKIN: No rashes. No petechiae - Labs CBC & Chem 7: 03/03/21 09:21 03/03/21 09:21 Labs: Abnormal Lab Results - Last 24 Hours (Table) 03/03/21 03/03/21 03/03/21 Range/Units : 09: 09: RDW 16.8 H (11.5-15.5) % D-Dimer 2.67 H (<0.60) mg/L FEU Sodium 134 L (137-145) mmol/L Creatinine 0.48 L (0.52-1.04) mg/dL Glucose 71 L (74-99) mg/dL Calcium 8.1 L (8.4-10.2) mg/dL Magnesium 1.5 L (1.6-2.3) mg/dL C-Reactive Protein 49.6 H (<10.0) mg/L Microbiology - Last 24 Hours (Table) 03/02/21 13:40 Gram Stain - Preliminary Sputum Sputum Culture - Preliminary Assessment and Plan Assessment: Multiple falls and generalized weakness Right side upper and lower lobe Pneumonia, with mild to moderate right pleural effusion Acute covid infection Acute hypoxic respiratory failure secondary to above. On chronic respiratory failure multiple joint pains including both hip, both knees and back secondary to fall Mild hyponatremia [id number] protein calorie malnutrition Hypertension Hypothyroidism COPD, not in acute exacerbation. Chronic hypoxic respiratory failure history of CVA/TIA History of depression, not active issue History of diverticular disease Plan: This is a pleasant 80 years old female who presents with right-sided pneumonia, Covid infection. Continue with Zosyn. Start multiple vitamins for Covid. Follow-up culture results. Lovenox, Pulmonary consult. Neurologist and orthopedic recommended no further intervention and follow-up as an outpatient. Speech evaluation Dietary consult Labs and medication were reviewed.. Continue same treatment. Continue with symptomatic treatment. Resume home medication. Monitor lytes and vitals. DVT and GI prophylaxis. Further recommendations depends on the clinical course of the patient DVT prophylaxis: Subcutaneous Lovenox GI Prophylaxis: Pepcid PT/OT: Pending Prognosis is guarded
[2021-03-04] MEDS: methylPREDNISolone SOD SUCCI 125 MG/2 ML VIAL IV SCH ×4 (05:19→23:33)
[2021-03-04] MEDS: PIPERACILLIN-TAZOBACTAM 3.375 GM in SODIUM CHLORIDE 0.9% 100 ML IVPB SCH ×3 (05:20→19:53)
[2021-03-04] MEDS: LEVOTHYROXINE 50 MCG TAB PO SCH (05:20)
[2021-03-04] MEDS: ASPIRIN 81 MG PO SCH (07:59)
[2021-03-04] MEDS: ZINC SULFATE 220 MG CAP PO SCH (07:59)
[2021-03-04] MEDS: ENOXAPARIN 40 MG/0.4 ML SYRINGE SQ SCH (07:59)
[2021-03-04] MEDS: ASCORBIC ACID 500 MG TAB PO SCH (07:59)
[2021-03-04] MEDS: CYANOCOBALAMIN 500 MCG TAB PO SCH (08:00)
[2021-03-04] MEDS: CLOPIDOGREL 75 MG TAB PO SCH (08:00)
[2021-03-04] MEDS: PRIMIDONE 50 MG TAB PO SCH ×3 (08:00→22:11)
[2021-03-04] MEDS: METOPROLOL TARTRATE 12.5 MG TAB PO SCH ×2 (08:00→22:05)
[2021-03-04] MEDS: BACLOFEN 10 MG TAB PO SCH ×3 (08:00→22:05)
[2021-03-04] MEDS: CHOLECALCIFEROL 25 MCG (1000 IU) TABLET PO SCH (08:00)
[2021-03-04] MEDS: CARBIDOPA-LEVODOPA 25-100 MG 1 EACH TAB PO SCH ×3 (08:00→23:32)
[2021-03-04] MEDS: PANTOPRAZOLE 40 MG TABLET PO SCH (08:00)
[2021-03-04] MEDS: SYMBICORT 160-4.5 MCG INHALER INHALATION SCH ×2 (08:47→19:59)
[2021-03-04] MEDS: ALBUTEROL HFA INHALER INHALATION SCH ×4 (08:47→19:58)
--- NOTE | 2021-03-04 09:09 | P.PN ---
Subjective Progress Note Date: 03/04/21 80-year-old female, who presents to the emergency department, brought in by EMS, on February 28. She apparently complained of weakness, and fatigue, with multiple falls. She apparently fell once in the bathroom, and then once subsequent to that while sitting on the bed. She apparently came into the emergency room complaining of diffuse aches and pains including right rib pain, and some issues with her right foot. The patient apparently had a stroke in 2004, and has left- sided weakness as a residual. The patient also has a history of chronic obstructive pulmonary disease, and sees our nurse practitioner in the office for that. She apparently did test positive for coronavirus, and hasn't been feeling well for at least 2 weeks. She has a history of COPD, stroke, hypothyroidism, diverticular disease, depression, hypertension, and nasal septal deviation. She does continue to smoke on a daily basis. Lab data includes a white count of 8.1, hemoglobin 11, hematocrit 31.9, platelet count 339,000. Sodium was 126, potassium 3, chloride 90, CO2 30, anion gap 6, BUN 20, creatinine 0.46. Brain C T only showed cerebral atrophy, nothing acute. Chest x-ray shows right upper lobe, and right lower lobe pneumonia, which is new. There is also a right-sided rib fracture. X-rays of the right and left knee showed some chronic changes, nothing acute and certainly no fractures. Hip x-rays were negative as well. Progress note dated 03/02/2021. 80-year-old female, that we saw in the emergency department yesterday. She came with complaints of weakness, fatigue, she had multiple falls. X-rays I believe are all negative, although apparently she didn't have a right-sided rib fracture. She also may have a right upper lobe and right lower lobe pneumonia, which may relate to aspiration. Currently, the patient appears to be much more alert and awake today. She is on nasal O2 at 4 L. She is getting saline at 75 mL an hour. White count was 3, hemoglobin 11.7, hematocrit 35.9, platelet count was 302,000. On 03/03/2021 patient seen in follow-up on medical floor, she is currently on 8 L of oxygen pulse ox of 91%, is very congested, her chest is rattly. She is weak, she states she is able to bring up some phlegm which is usually white or light yellow, trace chest x-ray shows patchy bilateral lung infiltrates. Today's labs have been noted, white blood cell count is 5.8, hemoglobin is 11.8, d-dimer is 2.67, sodium is improving, up to 134, rest of electrolytes were within normal limits, BUN is 11 creatinine 0.48. CRP is 49.6, LDH is 461. Pro- calcitonin level is 0.32. Patient continues on inhalers, she continues on Zosyn, IV hydration with 0.9 normal saline at a rate of 75 ML per hour, and Decadron 6 mg daily in addition to vitamins. On today's evaluation of 03/04/2021 and seeing the patient for a follow-up regarding obesity-related pneumonia. The patient is on 10 L of oxygen by nasal cannula and the patient is pulse oxing above 91%. The patient remains on IV Solu-Medrol. The patient is also on Lovenox 40 mg subcu for DVT prophylaxis. The patient on Symbicort. Patient is on empiric antibiotic coverage with IV Zosyn. D-dimer from yesterday was 167. Rest of the blood work and electrodes are essentially normal. The LDH from yesterday was 461 with a CRP of 49. DD was 2.67. The chest x-ray showing diffuse bilateral pulmonary infiltrates somewhat asymmetric. The patient has history of Parkinson's the patient has increased weakness and falls at a time of admission the patient was quite weak related to the infection. The patient has been on Sinemet regarding her Parkinson's disease. She is quite spasticity. Neurology evaluated the patient. The patient has chronic issues with mobility and limited range of motion. No obvious fractures of her knees based on x-rays. She does have chronic bilateral lower extremity edema. She has a previous history of CVA and secondary paresis. Objective - Vital Signs Vital signs: Vital Signs Temp 98.7 F 03/04/21 08:00 Pulse 57 L 03/04/21 08:00 Resp 16 03/04/21 08:00 BP 122/57 03/04/21 08:00 Pulse Ox 91 L 03/04/21 08:00 Intake & Output 03/03/21 03/04/21 03/04/21 18:59 06:59 18:59 Intake Total 325 900 200 Output Total 600 Balance 325 300 200 Intake: IV 325 700 Piperacillin-Tazobactam 3 100 100 .375 gm In Sodium Chloride 0.9% 100 ml @ 25 mls/hr IVPB Q8H [facility] Rx#: [id number] Sodium Chloride 0.9% 1, 225 600 000 ml @ 75 mls/hr IV . [id number] [facility] Rx#:[id number] Oral 200 200 Output: Urine 600 Other: Voiding Method Bedpan # Voids 4 4 # Bowel Movements 1 - Exam GENERAL EXAM: Alert, very pleasant 80-year-old white female, and 10 L of oxygen a pulse ox of 91%, she is very frail, debilitated, weak looking, chronically ill-looking, recurrent congestive cough, sometimes productive comfortable in no apparent distress. HEAD: Normocephalic/atraumatic. EYES: Normal reaction of pupils, equal size. Conjunctiva pink, sclera white. NOSE: Clear with pink turbinates. THROAT: No erythema or exudates. NECK: No masses, no JVD, no thyroid enlargement, no adenopathy. CHEST: No chest wall deformity. Symmetrical expansion. LUNGS: Equal air entry with diffuse rhonchi, and wheezes CVS: Regular rate and rhythm, normal S1 and S2, no gallops, no murmurs, no rubs ABDOMEN: Soft, nontender. No hepatosplenomegaly, normal bowel sounds, no guarding or rigidity. EXTREMITIES: No clubbing, no edema, no cyanosis, 2+ pulses and upper and lower extremities. MUSCULOSKELETAL: Muscle strength and tone normal. SPINE: No scoliosis or deformity SKIN: No rashes CENTRAL NERVOUS SYSTEM: Alert and oriented -3. No focal deficits, tone is normal in all 4 extremities. PSYCHIATRIC: Alert and oriented -3. Appropriate affect. Intact judgment and insight. - Labs CBC & Chem 7: 03/03/21 09:21 03/03/21 09:21 Labs: Abnormal Lab Results - Last 24 Hours (Table) 03/03/21 03/03/21 03/03/21 Range/Units : 09: 09: RDW 16.8 H (11.5-15.5) % D-Dimer 2.67 H (<0.60) mg/L FEU Sodium 134 L (137-145) mmol/L Creatinine 0.48 L (0.52-1.04) mg/dL Glucose 71 L (74-99) mg/dL Calcium 8.1 L (8.4-10.2) mg/dL Magnesium 1.5 L (1.6-2.3) mg/dL C-Reactive Protein 49.6 H (<10.0) mg/L Assessment and Plan Plan: #1. Acute on chronic hypoxic respiratory failure related to acute COVID 19 related to pneumonia, currently on 10 L of oxygen by nasal cannula. The patient is on Decadron IV and Lovenox. The patient is also on empiric antibiotic coverage with IV Zosyn. Focused on is minimally elevated. There is also a component of COPD exacerbation. The patient is chronically debilitated. Patient has battled chest and the patient has infiltrates in lung bases bilaterally with possibly a effusion on the left #2. Acute exacerbation of COPD #3. Chronic and ongoing history of tobacco use and nicotine addiction #4. History of CVA with paresis #5. Weakness and fatigue with multiple falls and right-sided rib fracture #6. History of hypertension #7. Hypothyroidism #8. History of diverticular disease #9. History of depression Plan: Continue IV Solu-Medrol Anticoagulation with Lovenox IV Zosyn Monitor the the anti-inflammatory levels Sputum samples of been sent for cultures Titrate FiO2 to maintain saturation above 90% We'll continue to follow
[2021-03-04] MEDS: SODIUM CHLORIDE 0.9% 1,000 ML IV SCH ×2 (09:47→23:32)
[2021-03-04] MEDS ORDERED: MAGNESIUM SULFATE-D5W PMX 1 GM in DEXTROSE/WATER 1 100ML.BAG IVPB ONE (12:51)
[2021-03-04] MEDS ORDERED: FLUCONAZOLE 150 MG TAB PO STA (12:54)
--- NOTE | 2021-03-04 12:56 | P.PN ---
Subjective This is a pleasant 80 years old female with past medical history of COPD, CVA/TIA, hypertension, hypothyroidism, depression, diverticular disease. She is a patient of Dr. Mcnulty and follow-up with Dr. Castillo for her Parkinson disease also she sees Hayley for her COPD. She is on home oxygen of 2 L/m Patient presents because of frequent falls, she fell 3 times over the last 2 days without syncope or dizziness. She fell once the pectoralis/hour, another time in her bathroom against well after time when she was trying drinking her workup of her bed. Since yesterday patient also was complaining of from pain in both hip areas radiating to both knees. On some pain in the middle of her back. She has bilateral knee pain going down to the feet. Her knees are swollen bilaterally but also she was recently treated with Medrol dosepack for her r heumatoid arthritis of her joints and elbow as they were painful and swollen. She is fully awake and oriented. Also patient was complaining of from right side chest pain, associated with cough and phlegm about 3 days duration but no dyspnea. However patient at baseline and uses a walker He smokes 5 cigarettes a day, patient is counseled to quit but she declined, she declined nicotine patch as well. She denies alcohol or illicit drug she was history of stroke in 2004 with mild left hemiparesis however recently noticed some weakness in her right side as well Both feet are swollen Vitas looks stable and patient saturating 94% on 4 L oxygen via nasal cannula. Afebrile. CBC is unremarkable, sodium is low at 126, potassium 3. Creatinine 0.4. Liver enzymes significantly elevated.senior virus detected CXR: Right upper lobe and right lower lobe pneumonia, right-sided rib fracture CT of brain: Cerebral atrophy. No acute intracranial abnormality In the emergency room patient was started on Zithromax and ceftriaxone 1, and continue to normal sinus 75 mL/h 03/02/2021 Patient is seen in the general medical floor, she still short of breath with coughing and some yellow phlegm and right-sided chest pain. On exam she has decreased air entry on both sides, pulmonary already put her on inhaled steroids and bronchodilators. Also she is on 4 L oxygen via nasal cannula to keep saturation more than 90%. Her pelvic and hip x-ray showing no fracture. Bilateral knee x-ray showing no fracture but large effusion, it looks chronic, orthopedic team were consulted and there is no plan for surgical intervention and they recommended physical therapy as an outpatient. Also neurologist evaluated the patient yesterday and recommended no further intervention as patient following his due to her infection besides debility and Parkinson disease. The Zosyn has been placed for possible aspiration pneumonia. Broadcalcitonin is pending. We will ask for speech evaluation on Thursday Low magnesium and potassium replaced per protocol. Sputum culture is requested. She remains on normal saline at 75 mL/h, vitamin C, vitamin D and zinc. Vitamin B12 is borderline and low dose replacement displaced. 03/03/2021 She was seen and examined by me at bedside. Patient feels better with no coughing and this chest pain, pleuritic. Dyspnea improving over this not resolve at rest, she is not ambulating most of the time. An exam she has decreased air entry and her oxygen requirements went up to 8 L/m, most likely patient have acute COPD exacerbation and patient was placed on Solu-Medrol 60 mg. Rather than Decadron. Her labs look stable and sodium improved. Pulmonary and neurology on board, patient might benefit from ECF for inpatient rehab upon discharge. Patient to continue with the Plavix, Solu-Medrol 60 mg, empiric treatment with Zosyn and normal saline at 75 mL/h together with vitamin C, D and zinc Follow-up sputum culture results 03/04/2021 This is a pleasant 80 years old female who presents with multiple falls and right pneumonia. On the top of her covid infection. She still complaining from dyspnea however she has better air entry compared to yesterday. With minimal wheezing. However her oxygen requirement increased to 10 L/m. Today she needs more oxygen 15 L/m with oxygen saturation of 90%. She is slightly tachypneic with a breathing rate 16-22. And patient is afebrile. Her CBC today is unremarkable. D-dimer is 2.6. Sodium is 134. Rest of BMP is unremarkable is unremarkable, her glucose was on the low side 71 this morning. Magnesium 1.5 replaced Today her lactate dehydrogenase is normal at 461, C- reactive protein is slightly elevated at 49.6. Pro-calcitonin is slightly elevated at 0.32. Hemoglobin A1c is normal 5.3, vitamin B12 is borderline and h is been replaced. Patient continued to be covered with IV Solu-Medrol and Lovenox, also she is on Zosyn. Sputum culture is growing only desirae now. We'll give one-time dose of fluconazole Continue with multiple vitamins, vitamin C, vitamin D and zinc. Continue gentle hydration with normal saline at 75 mL/h. Objective - Vital Signs Vital signs: Vital Signs Temp 99.6 F 03/04/21 12:00 Pulse 79 03/04/21 12:00 Resp 22 03/04/21 12:00 BP 122/57 03/04/21 08:00 Pulse Ox 90 L 03/04/21 12:00 Intake & Output 03/03/21 03/04/21 03/04/21 18:59 06:59 18:59 Intake Total 325 900 400 Output Total 600 Balance 325 300 400 Weight 48.988 kg Intake: IV 325 700 Piperacillin-Tazobactam 3 100 100 .375 gm In Sodium Chloride 0.9% 100 ml @ 25 mls/hr IVPB Q8H [facility] Rx#: [id number] Sodium Chloride 0.9% 1, 225 600 000 ml @ 75 mls/hr IV . [id number] [facility] Rx#:[id number] Oral 200 400 Output: Urine 600 Other: Voiding Method Bedpan Bedpan # Voids 4 4 # Bowel Movements 1 - Exam -GENERAL: The patient is alert and oriented x3, not in any acute distress. Thin built HEENT: Pupils are round and equally reacting to light. EOMI. No scleral icterus. No conjunctival pallor. Normocephalic, atraumatic. No pharyngeal erythema. No thyromegaly. CARDIOVASCULAR: S1 and S2 present. No murmurs, rubs, or gallops. PULMONARY: Chest is clear to auscultation, no wheezing or crackles. ABDOMEN: Soft, nontender, nondistended, normoactive bowel sounds. No palpable organomegaly. -MUSCULOSKELETAL: No joint swelling or deformity. Both knees are swollen and tender, no warmth or redness. Interphalangeal joints of the fingers are mildly swollen -EXTREMITIES: No cyanosis, clubbing, . No leg edema but Bilateral pedal edema. NEUROLOGICAL: Gross neurological examination did not reveal any focal deficits. SKIN: No rashes. No petechiae - Labs CBC & Chem 7: 03/03/21 09:21 03/03/21 09:21 Labs: Microbiology - Last 24 Hours (Table) 03/02/21 13:40 Gram Stain - Final Sputum Sputum Culture - Final Desirae albicans Assessment and Plan Assessment: Multiple falls and generalized weakness Right side upper and lower lobe Pneumonia, with mild to moderate right pleural effusion Acute covid infection Acute hypoxic respiratory failure secondary to above. On chronic respiratory failure multiple joint pains including both hip, both knees and back secondary to fall Mild hyponatremia [id number] protein calorie malnutrition Hypertension Hypothyroidism COPD, not in acute exacerbation. Chronic hypoxic respiratory failure history of CVA/TIA History of depression, not active issue History of diverticular disease Plan: This is a pleasant 80 years old female who presents with right-sided pneumonia, Covid infection. Continue with Zosyn. Start multiple vitamins for Covid. Follow-up culture results. Lovenox, Pulmonary consult. Neurologist and orthopedic recommended no further intervention and follow-up as an outpatient. Speech evaluation Dietary consult Labs and medication were reviewed.. Continue same treatment. Continue with symptomatic treatment. Resume home medication. Monitor lytes and vitals. DVT and GI prophylaxis. Further recommendations depends on the clinical course of the patient DVT prophylaxis: Subcutaneous Lovenox GI Prophylaxis: Pepcid PT/OT: Pending Prognosis is guarded
[2021-03-05] MEDS: ACETAMINOPHEN TAB 325 MG TAB PO PRN ×2 (02:42→10:04)
[2021-03-05] MEDS: PIPERACILLIN-TAZOBACTAM 3.375 GM in SODIUM CHLORIDE 0.9% 100 ML IVPB SCH ×3 (05:05→20:59)
[2021-03-05] MEDS: methylPREDNISolone SOD SUCCI 125 MG/2 ML VIAL IV SCH ×3 (05:46→17:53)
[2021-03-05] MEDS: LEVOTHYROXINE 50 MCG TAB PO SCH (05:46)
[2021-03-05] MEDS: ALBUTEROL HFA INHALER INHALATION SCH ×4 (08:34→19:56)
[2021-03-05] MEDS: SYMBICORT 160-4.5 MCG INHALER INHALATION SCH ×2 (08:35→19:54)
--- NOTE | 2021-03-05 09:23 | P.PN ---
Subjective Progress Note Date: 03/05/21 80-year-old female, who presents to the emergency department, brought in by EMS, on February 28. She apparently complained of weakness, and fatigue, with multiple falls. She apparently fell once in the bathroom, and then once subsequent to that while sitting on the bed. She apparently came into the emergency room complaining of diffuse aches and pains including right rib pain, and some issues with her right foot. The patient apparently had a stroke in 2004, and has left- sided weakness as a residual. The patient also has a history of chronic obstructive pulmonary disease, and sees our nurse practitioner in the office for that. She apparently did test positive for coronavirus, and hasn't been feeling well for at least 2 weeks. She has a history of COPD, stroke, hypothyroidism, diverticular disease, depression, hypertension, and nasal septal deviation. She does continue to smoke on a daily basis. Lab data includes a white count of 8.1, hemoglobin 11, hematocrit 31.9, platelet count 339,000. Sodium was 126, potassium 3, chloride 90, CO2 30, anion gap 6, BUN 20, creatinine 0.46. Brain C T only showed cerebral atrophy, nothing acute. Chest x-ray shows right upper lobe, and right lower lobe pneumonia, which is new. There is also a right-sided rib fracture. X-rays of the right and left knee showed some chronic changes, nothing acute and certainly no fractures. Hip x-rays were negative as well. Progress note dated 03/02/2021. 80-year-old female, that we saw in the emergency department yesterday. She came with complaints of weakness, fatigue, she had multiple falls. X-rays I believe are all negative, although apparently she didn't have a right-sided rib fracture. She also may have a right upper lobe and right lower lobe pneumonia, which may relate to aspiration. Currently, the patient appears to be much more alert and awake today. She is on nasal O2 at 4 L. She is getting saline at 75 mL an hour. White count was 3, hemoglobin 11.7, hematocrit 35.9, platelet count was 302,000. On 03/03/2021 patient seen in follow-up on medical floor, she is currently on 8 L of oxygen pulse ox of 91%, is very congested, her chest is rattly. She is weak, she states she is able to bring up some phlegm which is usually white or light yellow, trace chest x-ray shows patchy bilateral lung infiltrates. Today's labs have been noted, white blood cell count is 5.8, hemoglobin is 11.8, d-dimer is 2.67, sodium is improving, up to 134, rest of electrolytes were within normal limits, BUN is 11 creatinine 0.48. CRP is 49.6, LDH is 461. Pro- calcitonin level is 0.32. Patient continues on inhalers, she continues on Zosyn, IV hydration with 0.9 normal saline at a rate of 75 ML per hour, and Decadron 6 mg daily in addition to vitamins. On today's evaluation of 03/04/2021 and seeing the patient for a follow-up regarding obesity-related pneumonia. The patient is on 10 L of oxygen by nasal cannula and the patient is pulse oxing above 91%. The patient remains on IV Solu-Medrol. The patient is also on Lovenox 40 mg subcu for DVT prophylaxis. The patient on Symbicort. Patient is on empiric antibiotic coverage with IV Zosyn. D-dimer from yesterday was 167. Rest of the blood work and electrodes are essentially normal. The LDH from yesterday was 461 with a CRP of 49. DD was 2.67. The chest x-ray showing diffuse bilateral pulmonary infiltrates somewhat asymmetric. The patient has history of Parkinson's the patient has increased weakness and falls at a time of admission the patient was quite weak related to the infection. The patient has been on Sinemet regarding her Parkinson's disease. She is quite spasticity. Neurology evaluated the patient. The patient has chronic issues with mobility and limited range of motion. No obvious fractures of her knees based on x-rays. She does have chronic bilateral lower extremity edema. She has a previous history of CVA and secondary paresis. 03/05/2021 the patient is currently on 15 L of oxygen by nasal cannula. The patient has equipment he-related pneumonia and the patient is currently an acute hypoxic respiratory failure. The patient remains on IV Solu Medrol some and the patient is currently on 60 mg IV every 6 hours. Yesterday she was on 10 L and she had to be raised up on her oxygen flow. Her vitals currently are all stable and the patient is afebrile. Her current pulse ox is 92%. Labs are not obtained from today. Latest d-dimer is at 2.67. The patient is currently also on Lovenox 40 mg subcu every 24 hours. On yesterday's evaluation the patient was quite had a congested chest. Her cough is weak and she is unable to bring up any sputum. On examination she has marked diminished breath sounds bilaterally. Her chest wall is also sore. She is extremely frail and she has developed chest regarding his COPD. She is covered with IV Zosyn as an empiric antibiotic coverage. IV fluids are running at 75 mL an hour. She also has chronic spasticity related to Underlying Previous History of CVA and Paresis. Objective - Vital Signs Vital signs: Vital Signs Temp 97.3 F L 03/05/21 08:00 Pulse 62 03/05/21 08:00 Resp 22 03/05/21 08:00 BP 149/74 03/05/21 08:00 Pulse Ox 92 L 03/05/21 08:00 Intake & Output 03/04/21 03/05/21 03/05/21 18:59 06:59 18:59 Intake Total 600 1450 Output Total 1 Balance 599 1450 Weight 48.988 kg Intake: IV 1100 Piperacillin-Tazobactam 3 200 .375 gm In Sodium Chloride 0.9% 100 ml @ 25 mls/hr IVPB Q8H [facility] Rx#: [id number] Sodium Chloride 0.9% 1, 900 000 ml @ 75 mls/hr IV . [id number] [facility] Rx#:[id number] Oral 600 350 Output: Stool 1 Other: Voiding Method Bedpan # Voids 2 4 - Exam GENERAL EXAM: Alert, very pleasant 80-year-old white female, and 15L of oxygen a pulse ox of 91%, she is very frail, debilitated, weak looking, chronically ill-looking, recurrent congestive cough, sometimes productive comfortable in no apparent distress. HEAD: Normocephalic/atraumatic. EYES: Normal reaction of pupils, equal size. Conjunctiva pink, sclera white. NOSE: Clear with pink turbinates. THROAT: No erythema or exudates. NECK: No masses, no JVD, no thyroid enlargement, no adenopathy. CHEST: No chest wall deformity. Symmetrical expansion. LUNGS: Markedly diminished breath sound bilaterally and scattered rhonchi and scattered external wheeze. The patient has a valve chest. CVS: Regular rate and rhythm, normal S1 and S2, no gallops, no murmurs, no rubs ABDOMEN: Soft, nontender. No hepatosplenomegaly, normal bowel sounds, no guarding or rigidity. EXTREMITIES: No clubbing, no edema, no cyanosis, 2+ pulses and upper and lower extremities. MUSCULOSKELETAL: Muscle strength and tone normal. SPINE: No scoliosis or deformity SKIN: No rashes CENTRAL NERVOUS SYSTEM: Alert and oriented -3. No focal deficits, tone is normal in all 4 extremities. PSYCHIATRIC: Alert and oriented -3. Appropriate affect. Intact judgment and insight. - Labs CBC & Chem 7: 03/03/21 09:21 03/03/21 09:21 Labs: Microbiology - Last 24 Hours (Table) 03/02/21 13:40 Gram Stain - Final Sputum Sputum Culture - Final Desirae albicans Assessment and Plan Plan: #1. Acute on chronic hypoxic respiratory failure related to acute COVID 19 related to pneumonia, currently on 15 L of oxygen by nasal cannula. The patient is on Decadron IV and Lovenox. The patient is also on empiric antibiotic coverage with IV Zosyn. Focused on is minimally elevated. There is also a component of COPD exacerbation. The patient is chronically debilitated. The patient's condition decompensated since yesterday. Oxygen flows at 15 L. Her cough and mechanism is poor. She has a congested cough. Unable to bring up any sputum. Unable to do adequate incentive spirometer and she is using it and she is pulling approximately 500 for now. She has advanced COPD. She has a barrel chest. There may be some also effusions based on yesterday's chest x-ray and the repeat chest x-ray was done today. #2. Acute exacerbation of COPD #3. Chronic and ongoing history of tobacco use and nicotine addiction #4. History of CVA with paresis #5. Weakness and fatigue with multiple falls and right-sided rib fracture #6. History of hypertension #7. Hypothyroidism #8. History of diverticular disease #9. History of depression Plan: Continue IV Solu-Medrol Anticoagulation with Lovenox IV Zosyn Stop IV fluids Repeat chest x-ray Given a dose of Lasix 40 mg IV Monitor the the anti-inflammatory levels Sputum samples of been sent for cultures Titrate FiO2 to maintain saturation above 90% We'll continue to follow Long-term prognosis poor baseline above-mentioned comorbidities and advanced lung disease. Her current body mass index is 16.5 and she is quite cachectic and frail and has significant loss in total body protein mass.
[2021-03-05] MEDS: ENOXAPARIN 40 MG/0.4 ML SYRINGE SQ SCH (10:01)
[2021-03-05] MEDS: FUROSEMIDE 10 MG/ML 4 ML VIAL IV SCH (10:02)
[2021-03-05] MEDS: PRIMIDONE 50 MG TAB PO SCH ×3 (10:02→20:59)
[2021-03-05] MEDS: ZINC SULFATE 220 MG CAP PO SCH (10:02)
[2021-03-05] MEDS: PANTOPRAZOLE 40 MG TABLET PO SCH (10:03)
[2021-03-05] MEDS: ASCORBIC ACID 500 MG TAB PO SCH (10:03)
[2021-03-05] MEDS: METOPROLOL TARTRATE 12.5 MG TAB PO SCH ×2 (10:04→20:59)
[2021-03-05] MEDS: CLOPIDOGREL 75 MG TAB PO SCH (10:04)
[2021-03-05] MEDS: CARBIDOPA-LEVODOPA 25-100 MG 1 EACH TAB PO SCH ×3 (10:04→20:59)
[2021-03-05] MEDS: CHOLECALCIFEROL 25 MCG (1000 IU) TABLET PO SCH (10:04)
[2021-03-05] MEDS: BACLOFEN 10 MG TAB PO SCH ×3 (10:05→21:00)
[2021-03-05] MEDS: ASPIRIN 81 MG PO SCH (10:05)
[2021-03-05] MEDS: CYANOCOBALAMIN 500 MCG TAB PO SCH (10:06)
[2021-03-05 10:13] LABS: Anisocytosis Slight; Basophils % (A) 0 %; Eosinophils % (A) 0 %; HCT 41.6 % (34.0-46.0); Hypochromasia Slight; Lymphocytes # (A) 0.5 k/uL (1.0-4.8); Lymphocytes % (A) 9 %; MCH 27.6 pg (25.0-35.0); MCHC 31.2 g/dL (31.0-37.0); MCV 88.6 fL (80.0-100.0); Mean Platelet Volume 8.3; Monocytes # (A) 0.3 k/uL (0-1.0); Monocytes % (A) 4 %; Neutrophils # (A) 4.9 k/uL (1.3-7.7); Neutrophils % (A) 85 %; Platelet Count 291 k/uL (150-450); RDW 17.1 % (11.5-15.5); WBC 5.7 k/uL (3.8-10.6)
[2021-03-05 10:16] LABS: African American GFR (CKD) >90 (>60 ml/min/1.73 sqM); Anion Gap 7 mmol/L; Blood Urea Nitrogen 12 mg/dL (7-17); Calcium 8.3 mg/dL (8.4-10.2); Carbon Dioxide 28 mmol/L (22-30); Chloride 100 mmol/L (98-107); Glucose 162 mg/dL (74-99); LDH 613 U/L (313-618); Non-African American GFR(CKD) >90 (>60 ml/min/1.73 sqM); Sodium 135 mmol/L (137-145)
--- NOTE | 2021-03-05 10:24 | XR ---
EXAMINATION TYPE: XR chest 1V portable DATE OF EXAM: 03/05/2021 COMPARISON: Chest x-ray 03/03/2021 HISTORY: Covid positive, abnormal chest x-ray TECHNIQUE: Single frontal view of the chest is obtained. FINDINGS: Findings are similar to prior exam. Bibasilar density obscures the hemidiaphragms, bluntin g the hemidiaphragms. No evident pneumothorax. Prominent lung volumes may be indicative of underlying COPD, emphysema. Cardiac mediastinal silhouette is similar, the aorta is dense. Nodular density is p resent in the right upper lobe, follow-up is recommended to exclude underlying mass. IMPRESSION: Correlate for pneumonia, edema with pleural effusions. Cannot exclude right upper lobe l brit mass. Follow-up is recommended.
[2021-03-05] MEDS ORDERED: KETOROLAC 15 MG/ML 1 ML VIAL IVP STA (11:50)
[2021-03-05] MEDS: MAGNESIUM SULFATE-D5W PMX 1 GM in DEXTROSE/WATER 1 100ML.BAG IVPB SCH ×2 (14:32→16:19)
--- NOTE | 2021-03-05 23:02 | P.PN ---
Subjective Progress Note Date: 03/05/21 Principal diagnosis: Acute COVID-19 infection Multiple falls This is a pleasant 80 years old female with past medical history of COPD, CVA/TIA, hypertension, hypothyroidism, depression, diverticular disease. She is a patient of Dr. Mcnulty and follow-up with Dr. Castillo for her Parkinson disease also she sees Hayley for her COPD. She is on home oxygen of 2 L/m Patient presents because of frequent falls, she fell 3 times over the last 2 days without syncope or dizziness. She fell once the pectoralis/hour, another time in her bathroom against well after time when she was trying drinking her workup of her bed. Since yesterday patient also was complaining of from pain in both hip areas radiating to both knees. On some pain in the middle of her back. She has bilateral knee pain going down to the feet. Her knees are swollen bilaterally but also she was recently treated with Medrol dosepack for her rheumatoid arthritis of her joints and elbow as they were painful and swollen. She is fully awake and oriented. Also patient was complaining of from right side chest pain, associated with cough and phlegm about 3 days duration but no dyspnea. However patient at baseline and uses a walker He smokes 5 cigarettes a day, patient is counseled to quit but she declined, she declined nicotine patch as well. She denies alcohol or illicit drug she was h istory of stroke in 2004 with mild left hemiparesis however recently noticed some weakness in her right side as well Both feet are swollen Vitas looks stable and patient saturating 94% on 4 L oxygen via nasal cannula. Afebrile. CBC is unremarkable, sodium is low at 126, potassium 3. Creatinine 0.4. Liver enzymes significantly elevated.senior virus detected CXR: Right upper lobe and right lower lobe pneumonia, right-sided rib fracture CT of brain: Cerebral atrophy. No acute intracranial abnormality In the emergency room patient was started on Zithromax and ceftriaxone 1, and continue to normal sinus 75 mL/h 03/02/2021 Patient is seen in the general medical floor, she still short of breath with coughing and some yellow phlegm and right-sided chest pain. On exam she has decreased air entry on both sides, pulmonary already put her on inhaled steroids and bronchodilators. Also she is on 4 L oxygen via nasal cannula to keep saturation more than 90%. Her pelvic and hip x-ray showing no fracture. Bilateral knee x-ray showing no fracture but large effusion, it looks chronic, orthopedic team were consulted and there is no plan for surgical intervention and they recommended physical therapy as an outpatient. Also neurologist evaluated the patient yesterday and recommended no further intervention as patient following his due to her infection besides debility and Parkinson disease. The Zosyn has been placed for possible aspiration pneumonia. Broadcalcitonin is pending. We will ask for speech evaluation on Thursday Low magnesium and potassium replaced per protocol. Sputum culture is requested. She remains on normal saline at 75 mL/h, vitamin C, vitamin D and zinc. Vitamin B12 is borderline and low dose replacement displaced. 03/03/2021 She was seen and examined by me at bedside. Patient feels better with no coughing and this chest pain, pleuritic. Dyspnea improving over this not resolve at rest, she is not ambulating most of the time. An exam she has decreased air entry and her oxygen requirements went up to 8 L/m, most likely patient have acute COPD exacerbation and patient was placed on Solu-Medrol 60 mg. Rather than Decadron. Her labs look stable and sodium improved. Pulmonary and neurology on board, patient might benefit from ECF for inpatient rehab upon discharge. Patient to continue with the Plavix, Solu-Medrol 60 mg, empiric treatment with Zosyn and normal saline at 75 mL/h together with vitamin C, D and zinc Follow-up sputum culture results 03/04/2021 This is a pleasant 80 years old female who presents with multiple falls and right pneumonia. On the top of her covid infection. She still complaining from dyspnea however she has better air entry compared to yesterday. With minimal wheezing. However her oxygen requirement increased to 10 L/m. Today she needs more oxygen 15 L/m with oxygen saturation of 90%. She is slightly tachypneic with a breathing rate 16-22. And patient is afebrile. Her CBC today is unremarkable. D-dimer is 2.6. Sodium is 134. Rest of BMP is unremarkable is unremarkable, her glucose was on the low side 71 this morning. Magnesium 1.5 replaced Today her lactate dehydrogenase is normal at 461, C-reac tive protein is slightly elevated at 49.6. Pro-calcitonin is slightly elevated at 0.32. Hemoglobin A1c is normal 5.3, vitamin B12 is borderline and his been replaced. Patient continued to be covered with IV Solu-Medrol and Lovenox, also she is on Zosyn. Sputum culture is growing only desirae now. We'll give one-time dose of fluconazole Continue with multiple vitamins, vitamin C, vitamin D and zinc. Continue gentle hydration with normal saline at 75 mL/h. 03/05/2021 Patient is currently lying in the bed. Seems lethargic and complains of right lower rib cage pain especially with deep breathing and coughing.. Patient is currently requiring oxygen at 15 L high flow via nasal cannula and saturating at 88 to 92%. Oxygen requirement is trending up compared to yesterday. Patient is in pain continued on IV Solu-Medrol, Lovenox, multivitamins. Patient is being continued on Zosyn for possible Pneumonia. Patient has been afebrile. Sputum cultures showed Desirae albicans. Laboratory data showed WBC 5.7, hemoglobin 13.0 and platelets 291 lymphocytes 0.5 D-dimer 3.93, sodium 135 potassium five 4.0 BUN 12 and creatinine 0.4 magnesium 1.8 and LDH 613 Chest x-ray showed correlate for pneumonia, edema with pleural effusions. Cannot exclude right upper lobe lung mass. Follow-up is recommended. Pulmonary is on board. Active Medications Generic Name Dose Route Start Last Admin Trade Name Freq PRN Reason Stop Dose Admin Acetaminophen 650 mg 02/28/21 22:32 03/05/21 10:04 Acetaminophen Tab 325 Mg Tab PO 650 mg Q6HR PRN Administration Mild Pain or Fever > 100.5 Albuterol Sulfate 2 puff 03/01/21 20:00 03/05/21 19:56 Albuterol Hfa Inhaler INHALATION 2 puff RT-QID [facility] Administration Albuterol Sulfate 2 puff 03/01/21 17:35 03/05/21 19:54 Albuterol Hfa Inhaler INHALATION 2 puff RT-QID PRN Administration Shortness Of Breath Or Wheezing Ascorbic Acid 1,000 mg 03/01/21 12:30 03/05/21 10:03 Ascorbic Acid 500 Mg Tab PO 1,000 mg DAILY [facility] Administration Aspirin 81 mg 03/02/21 09:00 03/05/21 10:05 Aspirin 81 Mg PO 81 mg DAILY [facility] Administration Baclofen 10 mg 03/01/21 16:00 03/05/21 21:00 Baclofen 10 Mg Tab PO 10 mg TID [facility] Administration Budesonide/Formoterol Fumarate 2 puff 03/01/21 20:00 03/05/21 19:54 Symbicort 160-4.5 Mcg Inhaler INHALATION 2 puff RT-BID [facility] Administration Carbidopa/Levodopa 1 each 03/01/21 16:00 03/05/21 20:59 Carbidopa-Levodopa 25-100 Mg 1 Each Tab PO 1 each TID [facility] Administration Cholecalciferol 50 mcg 03/01/21 12:30 03/05/21 10:04 Cholecalciferol 25 Mcg (1000 Iu) Tablet PO 50 mcg DAILY [facility] Administration Clopidogrel Bisulfate 75 mg 03/02/21 09:00 03/05/21 10:04 Clopidogrel 75 Mg Tab PO 75 mg DAILY [facility] Administration Cyanocobalamin 500 mcg 03/02/21 09:00 03/05/21 10:06 Cyanocobalamin 500 Mcg Tab PO 500 mcg DAILY [facility] Administration Enoxaparin Sodium 40 mg 03/01/21 12:30 03/05/21 10:01 Enoxaparin 40 Mg/0.4 Ml Syringe SQ 40 mg DAILY [facility] Administration Furosemide 40 mg 03/05/21 09:30 03/05/21 10:02 Furosemide 10 Mg/Ml 4 Ml Vial IV 40 mg DAILY [facility] Administration Piperacillin Sod/Tazobactam 100 mls @ 25 mls/hr 03/02/21 12:00 03/05/21 20:59 Sod 3.375 gm/ Sodium Chloride IVPB 25 mls/hr Q8H [facility] Administration Levothyroxine Sodium 50 mcg 03/02/21 06:30 03/05/21 05:46 Levothyroxine 50 Mcg Tab PO 50 mcg DAILY@0630 [facility] Administration Methylprednisolone Sodium Succinate 60 mg 03/03/21 12:00 03/05/21 17:53 Methylprednisolone Sod Succi 125 Mg/2 Ml Vial IV 60 mg Q6HR [facility] Administration Metoprolol Tartrate 12.5 mg 03/01/21 21:00 03/05/21 20:59 Metoprolol Tartrate 12.5 Mg Tab PO 12.5 mg BID [facility] Administration Miscellaneous Information 1 each 03/02/21 13:21 Magnesium Replacement Protocol 1 Each Misc MISCELLANE DAILY PRN Per Protocol Protocol Miscellaneous Information 1 each 03/02/21 13:21 Potassium Replacement Protocol 1 Each Misc MISCELLANE DAILY PRN Per Protocol Protocol Naloxone HCl 0.2 mg 02/28/21 22:32 Naloxone 0.4 Mg/Ml 1 Ml Vial IV Q2M PRN Opioid Reversal Pantoprazole Sodium 40 mg 03/01/21 12:30 03/05/21 10:03 Pantoprazole 40 Mg Tablet PO 40 mg [id number] [facility] Administration Primidone 50 mg 03/01/21 16:00 03/05/21 20:59 Primidone 50 Mg Tab PO 50 mg TID [facility] Administration Zinc Sulfate 220 mg 03/01/21 12:30 03/05/21 10:02 Zinc Sulfate 220 Mg Cap PO 220 mg DAILY [facility]I Administration Objective - Vital Signs Vital signs: Vital Signs Temp 98.2 F 03/05/21 12:00 Pulse 73 03/05/21 12:00 Resp 18 03/05/21 12:00 BP 103/64 03/05/21 12:00 Pulse Ox 90 L 03/05/21 12:00 Intake & Output 03/04/21 03/05/21 03/05/21 18:59 06:59 18:59 Intake Total 600 1450 200 Output Total 1 Balance 599 1450 200 Weight 48.988 kg Intake: IV 1100 Piperacillin-Tazobactam 3 200 .375 gm In Sodium Chloride 0.9% 100 ml @ 25 mls/hr IVPB Q8H [facility] Rx#: [id number] Sodium Chloride 0.9% 1, 900 000 ml @ 75 mls/hr IV . [id number] [facility] Rx#:[id number] Oral 600 350 200 Output: Stool 1 Other: Voiding Method Bedpan # Voids 2 4 1 - Exam - Exam -GENERAL: The patient is alert and oriented x3, not in any acute distress. Thin built HEENT: Pupils are round and equally reacting to light. EOMI. No scleral icterus. No conjunctival pallor. Normocephalic, atraumatic. No pharyngeal erythema. No thyromegaly. CARDIOVASCULAR: S1 and S2 present. No murmurs, rubs, or gallops. PULMONARY: Bibasilar diminished sounds., no wheezing or crackles. ABDOMEN: Soft, nontender, nondistended, normoactive bowel sounds. No palpable organomegaly. -MUSCULOSKELETAL: No joint swelling or deformity. Both knees are swollen and tender, no warmth or redness. Interphalangeal joints of the fingers are mildly swollen -EXTREMITIES: No cyanosis, clubbing, . No leg edema but Bilateral pedal edema. NEUROLOGICAL: Gross neurological examination did not reveal any focal deficits. SKIN: No rashes. No petechiae - Labs CBC & Chem 7: 03/05/21 09:03/05/21 09:29 Labs: Abnormal Lab Results - Last 24 Hours (Table) 03/05/21 03/05/21 03/05/21 Range/Units 09: 09: 09:29 RDW 17.1 H (11.5-15.5) % Lymphocytes # 0.5 L (1.0-4.8) k/uL D-Dimer 3.93 H (<0.60) mg/L FEU Sodium 135 L (137-145) mmol/L Creatinine 0.40 L (0.52-1.04) mg/dL Glucose 162 H (74-99) mg/dL Calcium 8.3 L (8.4-10.2) mg/dL Assessment and Plan Assessment: Acute covid 19 infection Right side upper and lower lobe Pneumonia, with mild to moderate right pleural effusion Acute hypoxic respiratory failure secondary to above. On chronic respiratory failure Multiple falls and generalized weakness multiple joint pains including both hip, both knees and back secondary to fall Mild hyponatremia [id number] protein calorie malnutrition Hypertension Hypothyroidism COPD, not in acute exacerbation. Chronic hypoxic respiratory failure history of CVA/TIA History of depression, not active issue History of diverticular disease Plan: This is a pleasant 80 years old female who presents with right-sided pneumonia, Covid 19 infection. Continue with Zosyn. c/w IV solumedrol, vitamins , Lovenox, Pulmonary is following. IV fluids have been discontinued and patient was started on Lasix 40 mg daily. Neurologist and orthopedic surgery recommended no further intervention and follow-up as an outpatient. Labs and medication were reviewed. Continue with symptomatic treatment. Monitor lytes and vitals. DVT and GI prophylaxis. Further recommendations depends on the clinical course of the patient DVT prophylaxis: Subcutaneous Lovenox GI Prophylaxis: Pepcid PT/OT: Pending Prognosis is guarded Time with Patient: Greater than 30
[2021-03-06] MEDS: methylPREDNISolone SOD SUCCI 125 MG/2 ML VIAL IV SCH ×4 (01:00→16:56)
[2021-03-06] MEDS: PIPERACILLIN-TAZOBACTAM 3.375 GM in SODIUM CHLORIDE 0.9% 100 ML IVPB SCH ×3 (04:01→20:21)
[2021-03-06] MEDS: ACETAMINOPHEN TAB 325 MG TAB PO PRN ×2 (04:01→12:02)
[2021-03-06] MEDS: LEVOTHYROXINE 50 MCG TAB PO SCH (05:35)
[2021-03-06] MEDS: BACLOFEN 10 MG TAB PO SCH ×3 (05:35→20:31)
[2021-03-06 07:59] LABS: Anisocytosis Slight; Basophils % (A) 0 %; Eosinophils % (A) 0 %; HCT 36.6 % (34.0-46.0); HGB 12.3 gm/dL (11.4-16.0); Lymphocytes # (A) 0.5 k/uL (1.0-4.8); Lymphocytes % (A) 9 %; MCH 28.5 pg (25.0-35.0); MCHC 33.5 g/dL (31.0-37.0); MCV 85.3 fL (80.0-100.0); Mean Platelet Volume 8.1; Monocytes # (A) 0.3 k/uL (0-1.0); Monocytes % (A) 6 %; Neutrophils # (A) 4.5 k/uL (1.3-7.7); Neutrophils % (A) 85 %; Platelet Count 306 k/uL (150-450); RDW 16.8 % (11.5-15.5); WBC 5.3 k/uL (3.8-10.6)
[2021-03-06] MEDS: SYMBICORT 160-4.5 MCG INHALER INHALATION SCH ×2 (08:08→20:03)
[2021-03-06] MEDS: ALBUTEROL HFA INHALER INHALATION SCH ×4 (08:08→20:03)
[2021-03-06 08:28] LABS: African American GFR (CKD) >90 (>60 ml/min/1.73 sqM); Anion Gap 6 mmol/L; Blood Urea Nitrogen 18 mg/dL (7-17); Calcium 8.2 mg/dL (8.4-10.2); Carbon Dioxide 30 mmol/L (22-30); Chloride 99 mmol/L (98-107); Glucose 126 mg/dL (74-99); LDH 535 U/L (313-618); Magnesium 1.9 mg/dL (1.6-2.3); Non-African American GFR(CKD) >90 (>60 ml/min/1.73 sqM); Potassium 3.3 mmol/L (3.5-5.1); Sodium 135 mmol/L (137-145)
[2021-03-06] MEDS: ZINC SULFATE 220 MG CAP PO SCH (09:12)
[2021-03-06] MEDS: PRIMIDONE 50 MG TAB PO SCH ×3 (09:12→20:31)
[2021-03-06] MEDS: METOPROLOL TARTRATE 12.5 MG TAB PO SCH ×2 (09:12→20:30)
[2021-03-06] MEDS: PANTOPRAZOLE 40 MG TABLET PO SCH (09:13)
[2021-03-06] MEDS: ASPIRIN 81 MG PO SCH (09:15)
[2021-03-06] MEDS: CARBIDOPA-LEVODOPA 25-100 MG 1 EACH TAB PO SCH ×3 (09:17→20:31)
[2021-03-06] MEDS: ASCORBIC ACID 500 MG TAB PO SCH (09:17)
[2021-03-06] MEDS: ENOXAPARIN 40 MG/0.4 ML SYRINGE SQ SCH (09:18)
[2021-03-06] MEDS: CYANOCOBALAMIN 500 MCG TAB PO SCH (09:18)
[2021-03-06] MEDS: FUROSEMIDE 10 MG/ML 4 ML VIAL IV SCH (09:18)
[2021-03-06] MEDS: CHOLECALCIFEROL 25 MCG (1000 IU) TABLET PO SCH (09:18)
[2021-03-06] MEDS: CLOPIDOGREL 75 MG TAB PO SCH (09:18)
--- NOTE | 2021-03-06 10:31 | P.PN ---
Subjective Progress Note Date: 03/06/21 80-year-old female, who presents to the emergency department, brought in by EMS, on February 28. She apparently complained of weakness, and fatigue, with multiple falls. She apparently fell once in the bathroom, and then once subsequent to that while sitting on the bed. She apparently came into the emergency room complaining of diffuse aches and pains including right rib pain, and some issues with her right foot. The patient apparently had a stroke in 2004, and has left- sided weakness as a residual. The patient also has a history of chronic obstructive pulmonary disease, and sees our nurse practitioner in the office for that. She apparently did test positive for coronavirus, and hasn't been feeling well for at least 2 weeks. She has a history of COPD, stroke, hypothyroidism, diverticular disease, depression, hypertension, and nasal septal deviation. She does continue to smoke on a daily basis. Lab data includes a white count of 8.1, hemoglobin 11, hematocrit 31.9, platelet count 339,000. Sodium was 126, potassium 3, chloride 90, CO2 30, anion gap 6, BUN 20, creatinine 0.46. Brain C T only showed cerebral atrophy, nothing acute. Chest x-ray shows right upper lobe, and right lower lobe pneumonia, which is new. There is also a right-sided rib fracture. X-rays of the right and left knee showed some chronic changes, nothing acute and certainly no fractures. Hip x-rays were negative as well. Progress note dated 03/02/2021. 80-year-old female, that we saw in the emergency department yesterday. She came with complaints of weakness, fatigue, she had multiple falls. X-rays I believe are all negative, although apparently she didn't have a right-sided rib fracture. She also may have a right upper lobe and right lower lobe pneumonia, which may relate to aspiration. Currently, the patient appears to be much more alert and awake today. She is on nasal O2 at 4 L. She is getting saline at 75 mL an hour. White count was 3, hemoglobin 11.7, hematocrit 35.9, platelet count was 302,000. On 03/03/2021 patient seen in follow-up on medical floor, she is currently on 8 L of oxygen pulse ox of 91%, is very congested, her chest is rattly. She is weak, she states she is able to bring up some phlegm which is usually white or light yellow, trace chest x-ray shows patchy bilateral lung infiltrates. Today's labs have been noted, white blood cell count is 5.8, hemoglobin is 11.8, d-dimer is 2.67, sodium is improving, up to 134, rest of electrolytes were within normal limits, BUN is 11 creatinine 0.48. CRP is 49.6, LDH is 461. Pro- calcitonin level is 0.32. Patient continues on inhalers, she continues on Zosyn, IV hydration with 0.9 normal saline at a rate of 75 ML per hour, and Decadron 6 mg daily in addition to vitamins. On today's evaluation of 03/04/2021 and seeing the patient for a follow-up regarding obesity-related pneumonia. The patient is on 10 L of oxygen by nasal cannula and the patient is pulse oxing above 91%. The patient remains on IV Solu-Medrol. The patient is also on Lovenox 40 mg subcu for DVT prophylaxis. The patient on Symbicort. Patient is on empiric antibiotic coverage with IV Zosyn. D-dimer from yesterday was 167. Rest of the blood work and electrodes are essentially normal. The LDH from yesterday was 461 with a CRP of 49. DD was 2.67. The chest x-ray showing diffuse bilateral pulmonary infiltrates somewhat asymmetric. The patient has history of Parkinson's the patient has increased weakness and falls at a time of admission the patient was quite weak related to the infection. The patient has been on Sinemet regarding her Parkinson's disease. She is quite spasticity. Neurology evaluated the patient. The patient has chronic issues with mobility and limited range of motion. No obvious fractures of her knees based on x-rays. She does have chronic bilateral lower extremity edema. She has a previous history of CVA and secondary paresis. 03/05/2021 the patient is currently on 15 L of oxygen by nasal cannula. The patient has equipment he-related pneumonia and the patient is currently an acute hypoxic respiratory failure. The patient remains on IV Solu Medrol some and the patient is currently on 60 mg IV every 6 hours. Yesterday she was on 10 L and she had to be raised up on her oxygen flow. Her vitals currently are all stable and the patient is afebrile. Her current pulse ox is 92%. Labs are not obtained from today. Latest d-dimer is at 2.67. The patient is currently also on Lovenox 40 mg subcu every 24 hours. On yesterday's evaluation the patient was quite had a congested chest. Her cough is weak and she is unable to bring up any sputum. On examination she has marked diminished breath sounds bilaterally. Her chest wall is also sore. She is extremely frail and she has developed chest regarding his COPD. She is covered with IV Zosyn as an empiric antibiotic coverage. IV fluids are running at 75 mL an hour. She also has chronic spasticity related to Underlying Previous History of CVA and Paresis. On 03/06/2021 the patient remains on 15 L and her condition is probably the same. I have her on normal saline at the rate of 75 mL an hour and she is also on IV Solu-Medrol 60 mg every 6 hours. She has a congested cough along with COPD exacerbation and community-related pneumonia. She is feeling slightly better on today's evaluation. She is on Lovenox 40 mg subcu every 24 hrDimer is at 3.95 and the patient's and the white cell count is at 5.3 with a hemoglobin of 12.3. The progesterone level was at 0.32. She is tolerating diet. She is using incentive spirometer. She typically uses 2 L of oxygen at home. Objective - Vital Signs Vital signs: Vital Signs Temp 97.6 F 03/06/21 07:35 Pulse 72 03/06/21 08:00 Resp 20 03/06/21 08:00 BP 126/74 03/06/21 07:35 Pulse Ox 89 L 03/06/21 07:35 Intake & Output 03/05/21 03/06/21 03/06/21 18:59 06:59 18:59 Intake Total 800 825 240 Balance 800 825 240 Intake: IV 300 375 Sodium Chloride 0.9% 1, 300 375 000 ml @ 75 mls/hr IV . [id number] [facility] Rx#:[id number] Intake, IV Titration 300 200 Amount Magnesium Sulfate-D5w Pmx 200 1 gm In Dextrose/Water 1 100ml.bag @ 100 mls/hr IVPB Q1H [facility] Rx#: [id number] Piperacillin-Tazobactam 3 100 .375 gm In Sodium Chloride 0.9% 100 ml @ 25 mls/hr IVPB Q8H [facility] Rx#: [id number] Sodium Chloride 0.9% 1, 200 000 ml @ 75 mls/hr IV . [id number] [facility] Rx#:[id number] Oral 200 250 240 Other: Voiding Method Bedpan Bedpan # Voids 5 3 - Exam GENERAL EXAM: Alert, very pleasant 80-year-old white female, and 15L of oxygen a pulse ox of 91%, she is very frail, debilitated, weak looking, chronically ill-looking, recurrent congestive cough, sometimes productive comfortable in no apparent distress. HEAD: Normocephalic/atraumatic. EYES: Normal reaction of pupils, equal size. Conjunctiva pink, sclera white. NOSE: Clear with pink turbinates. THROAT: No erythema or exudates. NECK: No masses, no JVD, no thyroid enlargement, no adenopathy. CHEST: No chest wall deformity. Symmetrical expansion. LUNGS: Markedly diminished breath sound bilaterally and scattered rhonchi and scattered external wheeze. The patient has a valve chest. CVS: Regular rate and rhythm, normal S1 and S2, no gallops, no murmurs, no rubs ABDOMEN: Soft, nontender. No hepatosplenomegaly, normal bowel sounds, no guarding or rigidity. EXTREMITIES: No clubbing, no edema, no cyanosis, 2+ pulses and upper and lower extremities. MUSCULOSKELETAL: Muscle strength and tone normal. SPINE: No scoliosis or deformity SKIN: No rashes CENTRAL NERVOUS SYSTEM: Alert and oriented -3. No focal deficits, tone is normal in all 4 extremities. PSYCHIATRIC: Alert and oriented -3. Appropriate affect. Intact judgment and insight. - Labs CBC & Chem 7: 03/06/21 07:27 03/06/21 07:27 Labs: Abnormal Lab Results - Last 24 Hours (Table) 03/06/21 03/06/21 03/06/21 Range/Units 07: 07: 07:27 RDW 16.8 H (11.5-15.5) % Lymphocytes # 0.5 L (1.0-4.8) k/uL D-Dimer 3.95 H (<0.60) mg/L FEU Sodium 135 L (137-145) mmol/L Potassium 3.3 L (3.5-5.1) mmol/L BUN 18 H (7-17) mg/dL Creatinine 0.45 L (0.52-1.04) mg/dL Glucose 126 H (74-99) mg/dL Calcium 8.2 L (8.4-10.2) mg/dL Assessment and Plan Plan: #1. Acute on chronic hypoxic respiratory failure related to acute COVID 19 related to pneumonia, currently on 15 L of oxygen by nasal cannula. The patient is on Decadron IV and Lovenox. The patient is also on empiric antibiotic coverage with IV Zosyn. Focused on is minimally elevated. There is also a component of COPD exacerbation. The patient is chronically debilitated. The patient's condition decompensated since yesterday. Oxygen flows at 15 L. Her cough and mechanism is poor. She has a congested cough. Unable to bring up any sputum. Unable to do adequate incentive spirometer and she is using it and she is pulling approximately 500 for now. She has advanced COPD. She has a barrel chest. There may be some also effusions based on yesterday's chest x-ray and the repeat chest x-ray was done today. On today's evaluation, the patient is looking slightly improved clinically. She is still on 15 L of oxygen by nasal cannula and her oxygen requirements remain considerably elevated.. She does have some Desirae in her sputum. #2. Acute exacerbation of COPD #3. Chronic and ongoing history of tobacco use and nicotine addiction #4. History of CVA with paresis #5. Weakness and fatigue with multiple falls and right-sided rib fracture #6. History of hypertension #7. Hypothyroidism #8. History of diverticular disease #9. History of depression Plan: Continue IV Solu-Medrol Anticoagulation with Lovenox IV Zosyn This continued IV fluids to KVO Repeat chest x-ray Given a dose of Lasix 40 mg IV Monitor the the anti-inflammatory levels Sputum samples of been sent for cultures and there is also still pending for now Titrate FiO2 to maintain saturation above 90%, currently on 15 L of oxygen by nasal cannula Aggressive pulmonary toileting Will add Diflucan 100 mg by mouth daily for oropharyngeal candidiasis. We'll continue to follow Long-term prognosis poor baseline above-mentioned comorbidities and advanced lung disease. Her current body mass index is 16.5 and she is quite cachectic and frail and has significant loss in total body protein mass.
[2021-03-06] MEDS: NYSTATIN 100,000 UNIT/ML SUSP 500,000 UNIT/5 ML CUP PO SCH ×3 (11:54→21:25)
[2021-03-06] MEDS ORDERED: Potassium Replacement Protocol 1 EACH MISC MISCELLANE PRN (12:01)
--- NOTE | 2021-03-06 12:09 | P.PN ---
Subjective Progress Note Date: 03/06/21 I am assuming care of this patient as of 03/06/2021 at 8 AM. I was out of town and Dr. Aguilera was covering for me. HMP done by Dr. Camejo on 03/01/2021 Elicia Bradshaw, is an 80-year-old female admitted to [facility] through emergency room after presenting with symptoms of COVID- 19 pneumonia. Patient was having frequent falls at home along with chest pain and coughing for 3 days prior to hospitalization patient has a past medical history of COPD, CVA, hypertension, hypothyroidism, depression, diverticulitis, Parkinson's disease, COPD maintained on home O2 and nicotine dependence. Patient was positive COVID-19 chest x-ray performed in ER showing right upper lobe and right lower lobe pneumonia right-sided rib fracture. Patient was admitted to observation unit. Pulmonary and neurology services were consulted. On 03/06/2021 patient remains in the observation unit. Patient's alert and oriented 3 area patient remains on IV Solu-Medrol, IV Zosyn, vitamin C, zinc, vitamin D. She remains on high flow oxygen at 15 L. Pulmonary services are following. Patient was evaluated by neurology services due to increased falls and Parkinson's disease. No changes to Parkinson's medication. At this time patient denies chest pain. Patient denies nausea vomiting or diarrhea. Patient denies any urinary burning or frequency area potassium 3.3 replace per protocol. Morphine added for increase pain. Objective - Vital Signs Vital signs: Vital Signs Temp 97.6 F 03/06/21 07:35 Pulse 72 03/06/21 07:35 Resp 28 H 03/06/21 07:35 BP 126/74 03/06/21 07:35 Pulse Ox 89 L 03/06/21 07:35 Intake & Output 03/05/21 03/06/21 03/06/21 18:59 06:59 18:59 Intake Total 800 825 Balance 800 825 Intake: IV 300 375 Sodium Chloride 0.9% 1, 300 375 000 ml @ 75 mls/hr IV . [id number] [facility] Rx#:[id number] Intake, IV Titration 300 200 Amount Magnesium Sulfate-D5w Pmx 200 1 gm In Dextrose/Water 1 100ml.bag @ 100 mls/hr IVPB Q1H [facility] Rx#: [id number] Piperacillin-Tazobactam 3 100 .375 gm In Sodium Chloride 0.9% 100 ml @ 25 mls/hr IVPB Q8H [facility] Rx#: [id number] Sodium Chloride 0.9% 1, 200 000 ml @ 75 mls/hr IV . [id number] [facility] Rx#:[id number] Oral 200 250 Other: Voiding Method Bedpan # Voids 5 3 - Exam Head normocephalic Neck supple Lungs diminished bilaterally Heart regular rate and rhythm S1-S2, no rub or gallop Abdomen is soft nontender nondistended positive bowel sounds no hepatosplenomegaly Extremities no edema Neuro alert and orientated to 3. Tremor noted known Parkinson's disease - Labs CBC & Chem 7: 03/06/21 07:27 03/06/21 07:27 Labs: Abnormal Lab Results - Last 24 Hours (Table) 03/05/21 03/05/21 03/05/21 Range/Units 09:29 09:29 09:29 RDW 17.1 H (11.5-15.5) % Lymphocytes # 0.5 L (1.0-4.8) k/uL D-Dimer 3.93 H (<0.60) mg/L FEU Sodium 135 L (137-145) mmol/L Potassium (3.5-5.1) mmol/L BUN (7-17) mg/dL Creatinine 0.40 L (0.52-1.04) mg/dL Glucose 162 H (74-99) mg/dL Calcium 8.3 L (8.4-10.2) mg/dL 03/06/21 03/06/21 03/06/21 Range/Units 07:27 07:27 07:27 RDW 16.8 H (11.5-15.5) % Lymphocytes # 0.5 L (1.0-4.8) k/uL D-Dimer 3.95 H (<0.60) mg/L FEU Sodium 135 L (137-145) mmol/L Potassium 3.3 L (3.5-5.1) mmol/L BUN 18 H (7-17) mg/dL Creatinine 0.45 L (0.52-1.04) mg/dL Glucose 126 H (74-99) mg/dL Calcium 8.2 L (8.4-10.2) mg/dL Assessment and Plan Assessment: 1. Acute on chronic hypoxic respiratory failure secondary to acute COVID-19 related pneumonia. Currently on IV Solu-Medrol and Zosyn 2. Acute exacerbation of COPD 3. Parkinson's disease. Patient maintained on levodopa 4. Chronic hypoxic respiratory failure. Maintain on home oxygen 2 L 5. Multiple falls and generalized weakness. And right-sided rib fracture Patient was evaluated by neurology services due to known history of Parkinson's disease no changes to medication 6. Ongoing nicotine dependence despite extensive education on the importance of smoking sensation 7. History of CVA 8. Essential hypertension 9. History of hypothyroidism 10. History of diverticular disease 11. History of depression 12. Hypokalemia this and replace per protocol DVT prophylaxis Lovenox. GI prophylaxis Protonix Sputum cultures pending. Pulmonary service is following. Maintained on IV Solu-Medrol and IV Zosyn Maintained on vitamin C vitamin D and zinc Repeat labs ordered for a.m.
[2021-03-06] MEDS: MORPHINE SULFATE 2 MG/ML SYRINGE IVP PRN ×2 (13:02→20:30)
[2021-03-06] MEDS: POTASSIUM CHLORIDE ER 20 MEQ TAB.ER PO SCH ×2 (13:11→15:02)
--- NOTE | 2021-03-06 15:58 | P.PN ---
Subjective Progress Note Date: 03/06/21 I am seeing the patient for the first time for neurology follow-up. Please defer to Dr. Jose and Dr. Canales's note for further neurological detailed history and work-up. Upon seeing the patient she continues to be on high oxygen needs of 15L currently. Per the patient she would have episode of oxygen in high 80% because of shortness of breath. The patient denies any new neurological complaints. She stated she had a stroke and was told she had multiple TIA's in the past but does not recall work-up and could not tell me more. She also was told she had Parkinson's disease and see's Dr. Hernandez Objective - Vital Signs Vital signs: Vital Signs Temp 97.6 F 03/06/21 14:00 Pulse 76 03/06/21 14:00 Resp 18 03/06/21 14:00 BP 106/60 03/06/21 14:00 Pulse Ox 90 L 03/06/21 14:00 Intake & Output 03/05/21 03/06/21 03/06/21 18:59 06:59 18:59 Intake Total 800 825 360 Balance 800 825 360 Intake: IV 300 375 Sodium Chloride 0.9% 1, 300 375 000 ml @ 75 mls/hr IV . [id number] [facility] Rx#:[id number] Intake, IV Titration 300 200 Amount Magnesium Sulfate-D5w Pmx 200 1 gm In Dextrose/Water 1 100ml.bag @ 100 mls/hr IVPB Q1H [facility] Rx#: [id number] Piperacillin-Tazobactam 3 100 .375 gm In Sodium Chloride 0.9% 100 ml @ 25 mls/hr IVPB Q8H [facility] Rx#: [id number] Sodium Chloride 0.9% 1, 200 000 ml @ 75 mls/hr IV . [id number] [facility] Rx#:[id number] Oral 200 250 360 Other: Voiding Method Bedpan Bedpan # Voids 5 3 1 # Bowel Movements 0 - Exam Gen.: Patient is reclining in the bed. She is wearing nasal cannula O2, 15 L. She is in mild distress. HEENT: Head is atraumatic, normocephalic. Fundus not visualized. Neck: Supple Neurological examination Mental status: The patient is awake, alert and oriented to self, place and time. Her speech is clear. No aphasia or neglect. Cranial nerves: 2-12 grossly intact. The patient has full facial expression and a normal blink rate. Motor: Gait is deferred because of patient high oxygen need. The motor strength is 4+ to 5- in upper and lower but limited because of pain. Has slight increase tone in uppers. Has episode of resting tremor of head. Sensory: Normal to touch throughout. Lab work-up: Last blood blood cells 5.3 which is normal. The BUN/creatinine has been in the normal range The sodium has been improving too initial presentation is 135. Magnesium is improved and it's 1.9 - Labs CBC & Chem 7: 03/06/21 07:27 03/06/21 07:27 Labs: Abnormal Lab Results - Last 24 Hours (Table) 03/06/21 03/06/21 03/06/21 Range/Units 07:27 07: 07:27 RDW 16.8 H (11.5-15.5) % Lymphocytes # 0.5 L (1.0-4.8) k/uL D-Dimer 3.95 H (<0.60) mg/L FEU Sodium 135 L (137-145) mmol/L Potassium 3.3 L (3.5-5.1) mmol/L BUN 18 H (7-17) mg/dL Creatinine 0.45 L (0.52-1.04) mg/dL Glucose 126 H (74-99) mg/dL Calcium 8.2 L (8.4-10.2) mg/dL Assessment and Plan Assessment: * Increased weakness and falls, likely secondary to Covid 19 pneumonia and increased spasticity of the lower extremities * History of Parkinson's disease * Acute Covid 19 infection * Acute exacerbation of COPD * History of stroke * Chronic and ongoing history of tobacco and nicotine addiction * History of hypertension * History of hypothyroidism * History of diverticular disease * Plan: Patient is on aspirin 81 mg, Plavix 75 mg. I started the patient on Lipitor 10 mg for this history of stroke. If the patient continues to have episodes of falls I would recommend further patient to be on either aspirin or Plavix until he has no further falls. Vitamin B12 level is the following 9 which is normal. serum Folate 19.9 (normal) Agree with Dr. Jose's recommendation as in the recommendation of EMG and nerve conduction study of the lower extremity as an outpatient. Patient is on Sinemet 25/100 one tablet 3 times a day. Patient is also on baclofen 10 mg 1 tablet 3 times a day DT and OT are on board I agree the patient will likely need rehabilitation for gait training and strengthening The patient needs to follow-up with a neurologist as outpatient within 2 weeks. I'll defer the rest of medical management to the primary team. The plan is discussed with the patient's nurse. There is no further neurological workup needed this time. We will sign off. Please reconsult if needed Fer Ruiz MD Neuro-Hospitalist Time with Patient: Less than 30
[2021-03-06] MEDS: ATORVASTATIN 10 MG TAB PO SCH (20:30)
[2021-03-07] MEDS: methylPREDNISolone SOD SUCCI 125 MG/2 ML VIAL IV SCH ×4 (00:03→17:41)
[2021-03-07] MEDS: METOPROLOL TARTRATE 12.5 MG TAB PO SCH ×2 (00:07→08:41)
[2021-03-07] MEDS: LEVOTHYROXINE 50 MCG TAB PO SCH (05:28)
[2021-03-07] MEDS: PIPERACILLIN-TAZOBACTAM 3.375 GM in SODIUM CHLORIDE 0.9% 100 ML IVPB SCH ×3 (05:29→21:38)
[2021-03-07] MEDS: ALBUTEROL HFA INHALER INHALATION SCH ×4 (07:22→20:36)
[2021-03-07] MEDS: SYMBICORT 160-4.5 MCG INHALER INHALATION SCH ×2 (07:23→20:36)
[2021-03-07] MEDS: BACLOFEN 10 MG TAB PO SCH ×3 (08:41→21:39)
[2021-03-07] MEDS: ZINC SULFATE 220 MG CAP PO SCH (08:41)
[2021-03-07] MEDS: CLOPIDOGREL 75 MG TAB PO SCH (08:41)
[2021-03-07] MEDS: CYANOCOBALAMIN 500 MCG TAB PO SCH (08:41)
[2021-03-07] MEDS: ASPIRIN 81 MG PO SCH (08:41)
[2021-03-07] MEDS: CHOLECALCIFEROL 25 MCG (1000 IU) TABLET PO SCH (08:41)
[2021-03-07] MEDS: ENOXAPARIN 40 MG/0.4 ML SYRINGE SQ SCH (08:41)
[2021-03-07] MEDS: PANTOPRAZOLE 40 MG TABLET PO SCH (08:41)
[2021-03-07] MEDS: ASCORBIC ACID 500 MG TAB PO SCH (08:41)
[2021-03-07] MEDS: CARBIDOPA-LEVODOPA 25-100 MG 1 EACH TAB PO SCH ×2 (09:19→15:33)
[2021-03-07] MEDS: PRIMIDONE 50 MG TAB PO SCH ×3 (09:19→21:40)
[2021-03-07] MEDS: NYSTATIN 100,000 UNIT/ML SUSP 500,000 UNIT/5 ML CUP PO SCH ×3 (09:19→15:33)
[2021-03-07] MEDS: MORPHINE SULFATE 2 MG/ML SYRINGE IVP PRN ×2 (09:25→21:39)
--- NOTE | 2021-03-07 10:06 | P.PN ---
Subjective Progress Note Date: 03/07/21 80-year-old female, who presents to the emergency department, brought in by EMS, on February 28. She apparently complained of weakness, and fatigue, with multiple falls. She apparently fell once in the bathroom, and then once subsequent to that while sitting on the bed. She apparently came into the emergency room complaining of diffuse aches and pains including right rib pain, and some issues with her right foot. The patient apparently had a stroke in 2004, and has left- sided weakness as a residual. The patient also has a history of chronic obstructive pulmonary disease, and sees our nurse practitioner in the office for that. She apparently did test positive for coronavirus, and hasn't been feeling well for at least 2 weeks. She has a history of COPD, stroke, hypothyroidism, diverticular disease, depression, hypertension, and nasal septal deviation. She does continue to smoke on a daily basis. Lab data includes a white count of 8.1, hemoglobin 11, hematocrit 31.9, platelet count 339,000. Sodium was 126, potassium 3, chloride 90, CO2 30, anion gap 6, BUN 20, creatinine 0.46. Brain C T only showed cerebral atrophy, nothing acute. Chest x-ray shows right upper lobe, and right lower lobe pneumonia, which is new. There is also a right-sided rib fracture. X-rays of the right and left knee showed some chronic changes, nothing acute and certainly no fractures. Hip x-rays were negative as well. Progress note dated 03/02/2021. 80-year-old female, that we saw in the emergency department yesterday. She came with complaints of weakness, fatigue, she had multiple falls. X-rays I believe are all negative, although apparently she didn't have a right-sided rib fracture. She also may have a right upper lobe and right lower lobe pneumonia, which may relate to aspiration. Currently, the patient appears to be much more alert and awake today. She is on nasal O2 at 4 L. She is getting saline at 75 mL an hour. White count was 3, hemoglobin 11.7, hematocrit 35.9, platelet count was 302,000. On 03/03/2021 patient seen in follow-up on medical floor, she is currently on 8 L of oxygen pulse ox of 91%, is very congested, her chest is rattly. She is weak, she states she is able to bring up some phlegm which is usually white or light yellow, trace chest x-ray shows patchy bilateral lung infiltrates. Today's labs have been noted, white blood cell count is 5.8, hemoglobin is 11.8, d-dimer is 2.67, sodium is improving, up to 134, rest of electrolytes were within normal limits, BUN is 11 creatinine 0.48. CRP is 49.6, LDH is 461. Pro- calcitonin level is 0.32. Patient continues on inhalers, she continues on Zosyn, IV hydration with 0.9 normal saline at a rate of 75 ML per hour, and Decadron 6 mg daily in addition to vitamins. On today's evaluation of 03/04/2021 and seeing the patient for a follow-up regarding obesity-related pneumonia. The patient is on 10 L of oxygen by nasal cannula and the patient is pulse oxing above 91%. The patient remains on IV Solu-Medrol. The patient is also on Lovenox 40 mg subcu for DVT prophylaxis. The patient on Symbicort. Patient is on empiric antibiotic coverage with IV Zosyn. D-dimer from yesterday was 167. Rest of the blood work and electrodes are essentially normal. The LDH from yesterday was 461 with a CRP of 49. DD was 2.67. The chest x-ray showing diffuse bilateral pulmonary infiltrates somewhat asymmetric. The patient has history of Parkinson's the patient has increased weakness and falls at a time of admission the patient was quite weak related to the infection. The patient has been on Sinemet regarding her Parkinson's disease. She is quite spasticity. Neurology evaluated the patient. The patient has chronic issues with mobility and limited range of motion. No obvious fractures of her knees based on x-rays. She does have chronic bilateral lower extremity edema. She has a previous history of CVA and secondary paresis. 03/05/2021 the patient is currently on 15 L of oxygen by nasal cannula. The patient has equipment he-related pneumonia and the patient is currently an acute hypoxic respiratory failure. The patient remains on IV Solu Medrol some and the patient is currently on 60 mg IV every 6 hours. Yesterday she was on 10 L and she had to be raised up on her oxygen flow. Her vitals currently are all stable and the patient is afebrile. Her current pulse ox is 92%. Labs are not obtained from today. Latest d-dimer is at 2.67. The patient is currently also on Lovenox 40 mg subcu every 24 hours. On yesterday's evaluation the patient was quite had a congested chest. Her cough is weak and she is unable to bring up any sputum. On examination she has marked diminished breath sounds bilaterally. Her chest wall is also sore. She is extremely frail and she has developed chest regarding his COPD. She is covered with IV Zosyn as an empiric antibiotic coverage. IV fluids are running at 75 mL an hour. She also has chronic spasticity related to Underlying Previous History of CVA and Paresis. On 03/06/2021 the patient remains on 15 L and her condition is probably the same. I have her on normal saline at the rate of 75 mL an hour and she is also on IV Solu-Medrol 60 mg every 6 hours. She has a congested cough along with COPD exacerbation and community-related pneumonia. She is feeling slightly better on today's evaluation. She is on Lovenox 40 mg subcu every 24 hrDimer is at 3.95 and the patient's and the white cell count is at 5.3 with a hemoglobin of 12.3. The progesterone level was at 0.32. She is tolerating diet. She is using incentive spirometer. She typically uses 2 L of oxygen at home. 03/07/2021 the patient is being seen for a follow-up the patient remains on 15 L about 2 by nasal cannula. She continues to have a congested cough. Clinically she is feeling better. Nevertheless, her actual requirements have remained unchanged. I noted that her pulse ox is around 96% on 15 L that she may be potentially wean down slightly on her FiO2. Otherwise, no other new complaints for now. She is on IV Solu Medrol 60 mg every 6 hours. She is also in a empiric antibiotic coverage with IV Zosyn. We added nystatin for oropharyngeal candidiasis and she is able to swallow. She is using incentive spirometer. She is extremely debilitated and cachectic. He remains on Lovenox 40 mg subcu for DVT prophylaxis. Objective - Vital Signs Vital signs: Vital Signs Temp 98.3 F 03/07/21 08:00 Pulse 71 03/07/21 08:00 Resp 16 03/07/21 08:00 BP 126/59 03/07/21 08:00 Pulse Ox 94 L 03/07/21 07:23 Intake & Output 03/06/21 03/07/21 03/07/21 18:59 06:59 18:59 Intake Total 360 400 Output Total 200 Balance 160 400 Intake: IV 200 Piperacillin-Tazobactam 3 200 .375 gm In Sodium Chloride 0.9% 100 ml @ 25 mls/hr IVPB Q8H [facility] Rx#: [id number] Oral 360 200 Output: Urine 200 Other: Voiding Method Bedpan # Voids 1 2 1 # Bowel Movements 0 - Exam GENERAL EXAM: Alert, very pleasant 80-year-old white female, and 15L of oxygen a pulse ox of 91%, she is very frail, debilitated, weak looking, chronically i ll-looking, recurrent congestive cough, sometimes productive comfortable in no apparent distress. HEAD: Normocephalic/atraumatic. EYES: Normal reaction of pupils, equal size. Conjunctiva pink, sclera white. NOSE: Clear with pink turbinates. THROAT: No erythema or exudates. NECK: No masses, no JVD, no thyroid enlargement, no adenopathy. CHEST: No chest wall deformity. Symmetrical expansion. LUNGS: Markedly diminished breath sound bilaterally and scattered rhonchi and scattered external wheeze. The patient has a valve chest. CVS: Regular rate and rhythm, normal S1 and S2, no gallops, no murmurs, no rubs ABDOMEN: Soft, nontender. No hepatosplenomegaly, normal bowel sounds, no guarding or rigidity. EXTREMITIES: No clubbing, no edema, no cyanosis, 2+ pulses and upper and lower extremities. MUSCULOSKELETAL: Muscle strength and tone normal. SPINE: No scoliosis or deformity SKIN: No rashes CENTRAL NERVOUS SYSTEM: Alert and oriented -3. No focal deficits, tone is normal in all 4 extremities. PSYCHIATRIC: Alert and oriented -3. Appropriate affect. Intact judgment and insight. - Labs CBC & Chem 7: 03/06/21 07:27 03/06/21 07:27 Assessment and Plan Plan: #1. Acute on chronic hypoxic respiratory failure related to acute COVID 19 related to pneumonia, currently on 15 L of oxygen by nasal cannula. The patient is on Decadron IV and Lovenox. The patient is also on empiric antibiotic coverage with IV Zosyn. Focused on is minimally elevated. There is also a component of COPD exacerbation. The patient is chronically debilitated. Oxygen flows at 15 L. Her cough and mechanism is poor. She has a congested cough. Unable to bring up any sputum. using the incentive spirometer and she is using it and she is pulling approximately 500 for now. She has advanced C OPD. She also has meghna in her sputum and the patient is on nystatin to swish and swallow. The LDH is low at 535 and a CRP is still pending for now. D-dimer is at 3.95. #2. Acute exacerbation of COPD, stable #3. Chronic and ongoing history of tobacco use and nicotine addiction #4. History of CVA with paresis #5. Weakness and fatigue with multiple falls and right-sided rib fracture #6. History of hypertension #7. Hypothyroidism #8. History of diverticular disease #9. History of depression Plan: We'll continue essentially the same treatment and will going to attempt to wean down the FiO2 Continue IV Solu-Medrol Anticoagulation with Lovenox IV Zosyn This continued IV fluids to KVO Repeat chest x-ray Given a dose of Lasix 40 mg IV Monitor the the anti-inflammatory levels Sputum samples of been sent for cultures and there is also still pending for now Titrate FiO2 to maintain saturation above 90%, currently on 15 L of oxygen by nasal cannula Aggressive pulmonary toileting Nystatin to swish and swallow for oropharyngeal candidiasis. We'll continue to follow Long-term prognosis poor baseline above-mentioned comorbidities and advanced lung disease. Her current body mass index is 16.5 and she is quite cachectic and frail and has significant loss in total body protein mass.
[2021-03-07 12:30] LABS: ALT 26 U/L (4-34); AST 32 U/L (14-36); African American GFR (CKD) >90 (>60 ml/min/1.73 sqM); Albumin 2.7 g/dL (3.5-5.0); Alkaline Phosphatase 153 U/L (38-126); Anion Gap 8 mmol/L; Blood Urea Nitrogen 22 mg/dL (7-17); Calcium 8.4 mg/dL (8.4-10.2); Carbon Dioxide 28 mmol/L (22-30); Chloride 100 mmol/L (98-107); Glucose 141 mg/dL (74-99); Non-African American GFR(CKD) 90 (>60 ml/min/1.73 sqM); Potassium 3.9 mmol/L (3.5-5.1); Sodium 136 mmol/L (137-145); Total Bilirubin 0.4 mg/dL (0.2-1.3); Total Protein 5.1 g/dL (6.3-8.2)
[2021-03-07 12:43] LABS: Anisocytosis Slight; Basophils % (A) 0 %; Eosinophils % (A) 0 %; HCT 39.8 % (34.0-46.0); HGB 12.6 gm/dL (11.4-16.0); Hypochromasia Slight; Lymphocytes # (A) 0.4 k/uL (1.0-4.8); Lymphocytes % (A) 9 %; MCH 28.2 pg (25.0-35.0); MCHC 31.6 g/dL (31.0-37.0); MCV 89.4 fL (80.0-100.0); Mean Platelet Volume 8.8; Monocytes # (A) 0.3 k/uL (0-1.0); Monocytes % (A) 6 %; Neutrophils # (A) 3.4 k/uL (1.3-7.7); Neutrophils % (A) 84 %; Platelet Count 327 k/uL (150-450); RBC 4.45 m/uL (3.80-5.40); RDW 17.2 % (11.5-15.5); WBC 4.1 k/uL (3.8-10.6)
--- NOTE | 2021-03-07 17:24 | P.PN ---
Subjective Progress Note Date: 03/07/21 I am assuming care of this patient as of 03/06/2021 at 8 AM. I was out of town and Dr. Aguilera was covering for me. HMP done by Dr. Camejo on 03/01/2021 Elicia Bradshaw, is an 80-year-old female admitted to [facility] through emergency room after presenting with symptoms of COVID- 19 pneumonia. Patient was having frequent falls at home along with chest pain and coughing for 3 days prior to hospitalization patient has a past medical history of COPD, CVA, hypertension, hypothyroidism, depression, diverticulitis, Parkinson's disease, COPD maintained on home O2 and nicotine dependence. Patient was positive COVID-19 chest x-ray performed in ER showing right upper lobe and right lower lobe pneumonia right-sided rib fracture. Patient was admitted to observation unit. Pulmonary and neurology services were consulted. On 03/06/2021 patient remains in the observation unit. Patient's alert and oriented 3 area patient remains on IV Solu-Medrol, IV Zosyn, vitamin C, zinc, vitamin D. She remains on high flow oxygen at 15 L. Pulmonary services are following. Patient was evaluated by neurology services due to increased falls and Parkinson's disease. No changes to Parkinson's medication. At this time patient denies chest pain. Patient denies nausea vomiting or diarrhea. Patient denies any urinary burning or frequency area potassium 3.3 replace per protocol. Morphine added for increase pain. On 04/06/2021 patient was seen and examined on the medical floor she is alert and oriented 3 in no apparent distress she feels better he has less cough and shortness of breath currently she is maintained on oxygen 10 L via high flow nasal cannula there is no fever or chills no headache or dizziness no chest pain no shortness of breath at rest she has shortness of breath with any activity there is no nausea or vomiting no abdominal pain no diarrhea and no urinary symptoms Objective - Vital Signs Vital signs: Vital Signs Temp 97.5 F L 03/07/21 03:56 Pulse 54 L 03/07/21 03:56 Resp 14 03/07/21 00:00 BP 133/59 03/07/21 03:56 Pulse Ox 94 L 03/07/21 07:23 Intake & Output 03/06/21 03/07/21 03/07/21 18:59 06:59 18:59 Intake Total 360 400 Output Total 200 Balance 160 400 Intake: IV 200 Piperacillin-Tazobactam 3 200 .375 gm In Sodium Chloride 0.9% 100 ml @ 25 mls/hr IVPB Q8H [facility] Rx#: [id number] Oral 360 200 Output: Urine 200 Other: Voiding Method Bedpan # Voids 1 2 # Bowel Movements 0 - Exam In general patient is alert and oriented 3 in no apparent distress Head normocephalic and atraumatic Neck supple no JVD no goiter no lymphadenopathy Lungs diminished bilaterally Heart regular rate and rhythm S1-S2, no rub or gallop Abdomen is soft nontender nondistended positive bowel sounds no hepatosplenomegaly Extremities no edema Neuro no gross focal deficit Tremor noted known Parkinson's disease - Labs CBC & Chem 7: 03/07/21 09:41 03/07/21 09:41 Assessment and Plan Assessment: 1. Acute on chronic hypoxic respiratory failure secondary to acute COVID-19 related pneumonia. Currently on IV Solu-Medrol and Zosyn 2. Acute exacerbation of COPD 3. Parkinson's disease. Patient maintained on levodopa 4. Chronic hypoxic respiratory failure. Maintain on home oxygen 2 L 5. Multiple falls and generalized weakness. And right-sided rib fracture Patient was evaluated by neurology services due to known history of Parkinson's disease no changes to medication 6. Ongoing nicotine dependence despite extensive education on the importance of smoking sensation 7. History of CVA 8. Essential hypertension 9. History of hypothyroidism 10. History of diverticular disease 11. History of depression 12. Hypokalemia this and replace per protocol DVT prophylaxis Lovenox. GI prophylaxis Protonix Sputum cultures pending. Pulmonary service is following. Maintained on IV Solu-Medrol and IV Zosyn Maintained on vitamin C vitamin D and zinc Repeat labs ordered for a.m.
[2021-03-07] MEDS: ATORVASTATIN 10 MG TAB PO SCH (21:39)
[2021-03-08] MEDS: ACETAMINOPHEN TAB 325 MG TAB PO PRN (00:46)
[2021-03-08] MEDS: methylPREDNISolone SOD SUCCI 125 MG/2 ML VIAL IV SCH ×4 (00:47→17:01)
[2021-03-08] MEDS: NYSTATIN 100,000 UNIT/ML SUSP 500,000 UNIT/5 ML CUP PO SCH ×5 (00:48→22:01)
[2021-03-08] MEDS: METOPROLOL TARTRATE 12.5 MG TAB PO SCH ×3 (00:48→20:32)
[2021-03-08] MEDS: CARBIDOPA-LEVODOPA 25-100 MG 1 EACH TAB PO SCH ×4 (00:48→22:01)
[2021-03-08] MEDS: MORPHINE SULFATE 2 MG/ML SYRINGE IVP PRN ×3 (01:26→20:31)
[2021-03-08] MEDS: PIPERACILLIN-TAZOBACTAM 3.375 GM in SODIUM CHLORIDE 0.9% 100 ML IVPB SCH ×3 (04:09→20:31)
[2021-03-08] MEDS: LEVOTHYROXINE 50 MCG TAB PO SCH (06:15)
[2021-03-08] MEDS: PANTOPRAZOLE 40 MG TABLET PO SCH (08:16)
[2021-03-08] MEDS: ZINC SULFATE 220 MG CAP PO SCH (08:16)
[2021-03-08] MEDS: CYANOCOBALAMIN 500 MCG TAB PO SCH (08:16)
[2021-03-08] MEDS: CLOPIDOGREL 75 MG TAB PO SCH (08:17)
[2021-03-08] MEDS: ASCORBIC ACID 500 MG TAB PO SCH (08:17)
[2021-03-08] MEDS: ASPIRIN 81 MG PO SCH (08:17)
[2021-03-08] MEDS: BACLOFEN 10 MG TAB PO SCH ×3 (08:17→22:01)
[2021-03-08] MEDS: CHOLECALCIFEROL 25 MCG (1000 IU) TABLET PO SCH (08:17)
[2021-03-08] MEDS: PRIMIDONE 50 MG TAB PO SCH ×3 (08:17→22:01)
[2021-03-08] MEDS: ENOXAPARIN 40 MG/0.4 ML SYRINGE SQ SCH (08:18)
[2021-03-08] MEDS: ALBUTEROL HFA INHALER INHALATION SCH ×4 (09:00→21:15)
[2021-03-08] MEDS: SYMBICORT 160-4.5 MCG INHALER INHALATION SCH ×2 (09:06→21:15)
--- NOTE | 2021-03-08 10:26 | P.PN ---
Subjective Progress Note Date: 03/08/21 I am assuming care of this patient as of 03/06/2021 at 8 AM. I was out of town and Dr. Aguilera was covering for me. HMP done by Dr. Camejo on 03/01/2021 Elicia Bradshaw, is an 80-year-old female admitted to [facility] through emergency room after presenting with symptoms of COVID- 19 pneumonia. Patient was having frequent falls at home along with chest pain and coughing for 3 days prior to hospitalization patient has a past medical history of COPD, CVA, hypertension, hypothyroidism, depression, diverticulitis, Parkinson's disease, COPD maintained on home O2 and nicotine dependence. Patient was positive COVID-19 chest x-ray performed in ER showing right upper lobe and right lower lobe pneumonia right-sided rib fracture. Patient was admitted to observation unit. Pulmonary and neurology services were consulted. On 03/06/2021 patient remains in the observation unit. Patient's alert and oriented 3 area patient remains on IV Solu-Medrol, IV Zosyn, vitamin C, zinc, vitamin D. She remains on high flow oxygen at 15 L. Pulmonary services are following. Patient was evaluated by neurology services due to increased falls and Parkinson's disease. No changes to Parkinson's medication. At this time patient denies chest pain. Patient denies nausea vomiting or diarrhea. Patient denies any urinary burning or frequency area potassium 3.3 replace per protocol. Morphine added for increase pain. On 03/07/2021 patient was seen and examined on the medical floor she is alert and oriented 3 in no apparent distress she feels better he has less cough and shortness of breath currently she is maintained on oxygen 10 L via high flow nasal cannula there is no fever or chills no headache or dizziness no chest pain no shortness of breath at rest she has shortness of breath with any activity there is no nausea or vomiting no abdominal pain no diarrhea and no urinary symptoms On 03/08/2021 patient is alert and oriented 3. Patient remains on 10 L high flow nasal cannula. Patient remains with cough and shortness breath. Patient denies nausea vomiting or diarrhea. Patient denies any urinary burning or frequency Objective - Vital Signs Vital signs: Vital Signs Temp 97.4 F L 03/08/21 08:00 Pulse 64 03/08/21 08:00 Resp 18 03/08/21 08:00 BP 132/60 03/08/21 08:00 Pulse Ox 93 L 03/08/21 08:00 Intake & Output 03/07/21 03/08/21 03/08/21 18:59 06:59 18:59 Intake Total 240 850 Balance 240 850 Weight 48.988 kg Intake: Intake, IV Titration 200 Amount Piperacillin-Tazobactam 3 200 .375 gm In Sodium Chloride 0.9% 100 ml @ 25 mls/hr IVPB Q8H [facility] Rx#: [id number] Oral 240 650 Other: # Voids 1 4 - Exam In general patient is alert and oriented 3 in no apparent distress Head normocephalic and atraumatic Neck supple no JVD no goiter no lymphadenopathy Lungs diminished bilaterally Heart regular rate and rhythm S1-S2, no rub or gallop Abdomen is soft nontender nondistended positive bowel sounds no hepatosplenomegaly Extremities no edema Neuro no gross focal deficit Tremor noted known Parkinson's disease - Labs CBC & Chem 7: 03/07/21 09:41 03/07/21 09:41 Labs: Abnormal Lab Results - Last 24 Hours (Table) 03/07/21 03/07/21 Range/Units 09:41 09:41 RDW 17.2 H (11.5-15.5) % Lymphocytes # 0.4 L (1.0-4.8) k/uL Sodium 136 L (137-145) mmol/L BUN 22 H (7-17) mg/dL Glucose 141 H (74-99) mg/dL Alkaline Phosphatase 153 H (38-126) U/L Total Protein 5.1 L (6.3-8.2) g/dL Albumin 2.7 L (3.5-5.0) g/dL Assessment and Plan Assessment: 1. Acute on chronic hypoxic respiratory failure secondary to acute COVID-19 related pneumonia. Currently on IV Solu-Medrol and Zosyn 2. Acute exacerbation of COPD 3. Parkinson's disease. Patient maintained on levodopa 4. Chronic hypoxic respiratory failure. Maintain on home oxygen 2 L 5. Multiple falls and generalized weakness. And right-sided rib fracture Patient was evaluated by neurology services due to known history of Parkinson's disease no changes to medication 6. Ongoing nicotine dependence despite extensive education on the importance of smoking sensation 7. History of CVA 8. Essential hypertension 9. History of hypothyroidism 10. History of diverticular disease 11. History of depression 12. Hypokalemia this and replace per protocol 13. Bilateral knee pain. Patient was evaluated by orthopedic services. It is reported this is a chronic issue. Recommending physical therapy with no plans for surgical intervention DVT prophylaxis Lovenox. GI prophylaxis Protonix Sputum cultures pending. Pulmonary service is following. Maintained on IV Solu-Medrol and IV Zosyn Maintained on vitamin C vitamin D and zinc Repeat labs ordered for a.m. PT OT consulted Social consult for possible placement
[2021-03-08 11:17] LABS: Anisocytosis Slight; Basophils % (A) 0 %; Eosinophils % (A) 0 %; HCT 36.7 % (34.0-46.0); HGB 12.1 gm/dL (11.4-16.0); Lymphocytes # (A) 0.4 k/uL (1.0-4.8); Lymphocytes % (A) 11 %; MCH 28.8 pg (25.0-35.0); MCV 87.2 fL (80.0-100.0); Monocytes # (A) 0.2 k/uL (0-1.0); Monocytes % (A) 5 %; Neutrophils # (A) 3.4 k/uL (1.3-7.7); Neutrophils % (A) 83 %; Platelet Count 326 k/uL (150-450); RBC 4.21 m/uL (3.80-5.40); RDW 16.8 % (11.5-15.5)
--- NOTE | 2021-03-08 11:23 | P.PN ---
Subjective Progress Note Date: 03/08/21 80-year-old female, who presents to the emergency department, brought in by EMS, on February 28. She apparently complained of weakness, and fatigue, with multiple falls. She apparently fell once in the bathroom, and then once subsequent to that while sitting on the bed. She apparently came into the emergency room complaining of diffuse aches and pains including right rib pain, and some issues with her right foot. The patient apparently had a stroke in 2004, and has left- sided weakness as a residual. The patient also has a history of chronic obstructive pulmonary disease, and sees our nurse practitioner in the office for that. She apparently did test positive for coronavirus, and hasn't been feeling well for at least 2 weeks. She has a history of COPD, stroke, hypothyroidism, diverticular disease, depression, hypertension, and nasal septal deviation. She does continue to smoke on a daily basis. Lab data includes a white count of 8.1, hemoglobin 11, hematocrit 31.9, platelet count 339,000. Sodium was 126, potassium 3, chloride 90, CO2 30, anion gap 6, BUN 20, creatinine 0.46. Brain C T only showed cerebral atrophy, nothing acute. Chest x-ray shows right upper lobe, and right lower lobe pneumonia, which is new. There is also a right-sided rib fracture. X-rays of the right and left knee showed some chronic changes, nothing acute and certainly no fractures. Hip x-rays were negative as well. Progress note dated 03/02/2021. 80-year-old female, that we saw in the emergency department yesterday. She came with complaints of weakness, fatigue, she had multiple falls. X-rays I believe are all negative, although apparently she didn't have a right-sided rib fracture. She also may have a right upper lobe and right lower lobe pneumonia, which may relate to aspiration. Currently, the patient appears to be much more alert and awake today. She is on nasal O2 at 4 L. She is getting saline at 75 mL an hour. White count was 3, hemoglobin 11.7, hematocrit 35.9, platelet count was 302,000. On 03/03/2021 patient seen in follow-up on medical floor, she is currently on 8 L of oxygen pulse ox of 91%, is very congested, her chest is rattly. She is weak, she states she is able to bring up some phlegm which is usually white or light yellow, trace chest x-ray shows patchy bilateral lung infiltrates. Today's labs have been noted, white blood cell count is 5.8, hemoglobin is 11.8, d-dimer is 2.67, sodium is improving, up to 134, rest of electrolytes were within normal limits, BUN is 11 creatinine 0.48. CRP is 49.6, LDH is 461. Pro- calcitonin level is 0.32. Patient continues on inhalers, she continues on Zosyn, IV hydration with 0.9 normal saline at a rate of 75 ML per hour, and Decadron 6 mg daily in addition to vitamins. On today's evaluation of 03/04/2021 and seeing the patient for a follow-up regarding obesity-related pneumonia. The patient is on 10 L of oxygen by nasal cannula and the patient is pulse oxing above 91%. The patient remains on IV Solu-Medrol. The patient is also on Lovenox 40 mg subcu for DVT prophylaxis. The patient on Symbicort. Patient is on empiric antibiotic coverage with IV Zosyn. D-dimer from yesterday was 167. Rest of the blood work and electrodes are essentially normal. The LDH from yesterday was 461 with a CRP of 49. DD was 2.67. The chest x-ray showing diffuse bilateral pulmonary infiltrates somewhat asymmetric. The patient has history of Parkinson's the patient has increased weakness and falls at a time of admission the patient was quite weak related to the infection. The patient has been on Sinemet regarding her Parkinson's disease. She is quite spasticity. Neurology evaluated the patient. The patient has chronic issues with mobility and limited range of motion. No obvious fractures of her knees based on x-rays. She does have chronic bilateral lower extremity edema. She has a previous history of CVA and secondary paresis. 03/05/2021 the patient is currently on 15 L of oxygen by nasal cannula. The patient has equipment he-related pneumonia and the patient is currently an acute hypoxic respiratory failure. The patient remains on IV Solu Medrol some and the patient is currently on 60 mg IV every 6 hours. Yesterday she was on 10 L and she had to be raised up on her oxygen flow. Her vitals currently are all stable and the patient is afebrile. Her current pulse ox is 92%. Labs are not obtained from today. Latest d-dimer is at 2.67. The patient is currently also on Lovenox 40 mg subcu every 24 hours. On yesterday's evaluation the patient was quite had a congested chest. Her cough is weak and she is unable to bring up any sputum. On examination she has marked diminished breath sounds bilaterally. Her chest wall is also sore. She is extremely frail and she has developed chest regarding his COPD. She is covered with IV Zosyn as an empiric antibiotic coverage. IV fluids are running at 75 mL an hour. She also has chronic spasticity related to Underlying Previous History of CVA and Paresis. On 03/06/2021 the patient remains on 15 L and her condition is probably the same. I have her on normal saline at the rate of 75 mL an hour and she is also on IV Solu-Medrol 60 mg every 6 hours. She has a congested cough along with COPD exacerbation and community-related pneumonia. She is feeling slightly better on today's evaluation. She is on Lovenox 40 mg subcu every 24 hrDimer is at 3.95 and the patient's and the white cell count is at 5.3 with a hemoglobin of 12.3. The progesterone level was at 0.32. She is tolerating diet. She is using incentive spirometer. She typically uses 2 L of oxygen at home. 03/07/2021 the patient is being seen for a follow-up the patient remains on 15 L about 2 by nasal cannula. She continues to have a congested cough. Clinically she is feeling better. Nevertheless, her actual requirements have remained unchanged. I noted that her pulse ox is around 96% on 15 L that she may be potentially wean down slightly on her FiO2. Otherwise, no other new complaints for now. She is on IV Solu Medrol 60 mg every 6 hours. She is also in a empiric antibiotic coverage with IV Zosyn. We added nystatin for oropharyngeal candidiasis and she is able to swallow. She is using incentive spirometer. She is extremely debilitated and cachectic. He remains on Lovenox 40 mg subcu for DVT prophylaxis. 03/08/2021, the patient is being seen for a follow-up. The patient is currently on oxygen at 10 L per minute. She has a congested cough and she is unable to bring up much sputum. She is using incentive spirometer. She remains on IV Solu-Medrol. She remains on IV Zosyn. Nystatin was also added for oropharyngeal candidiasis. No significant complaints otherwise for now. Oral intake is limited and the patient is quite cachectic and she carries a body mass index of 16.9. White cell count is at 4 with a hemoglobin of 12.1. She is afebrile. She is hemodynamically stable. Objective - Vital Signs Vital signs: Vital Signs Temp 97.4 F L 03/08/21 08:00 Pulse 64 03/08/21 08:00 Resp 18 03/08/21 08:00 BP 132/60 03/08/21 08:00 Pulse Ox 93 L 03/08/21 08:00 Intake & Output 03/07/21 03/08/21 03/08/21 18:59 06:59 18:59 Intake Total 240 850 Balance 240 850 Weight 48.988 kg Intake: Intake, IV Titration 200 Amount Piperacillin-Tazobactam 3 200 .375 gm In Sodium Chloride 0.9% 100 ml @ 25 mls/hr IVPB Q[facility]H [facility] Rx#: [id number] Oral 240 650 Other: # Voids 1 4 - Exam GENERAL EXAM: Alert, very pleasant 80-year-old white female, and 10L of oxygen a pulse ox of 91%, she is very frail, debilitated, weak looking, chronically ill-looking, recurrent congestive cough, sometimes productive comfortable in no apparent distress. HEAD: Normocephalic/atraumatic. EYES: Normal reaction of pupils, equal size. Conjunctiva pink, sclera white. NOSE: Clear with pink turbinates. THROAT: No erythema or exudates. NECK: No masses, no JVD, no thyroid enlargement, no adenopathy. CHEST: No chest wall deformity. Symmetrical expansion. LUNGS: Markedly diminished breath sound bilaterally and scattered rhonchi and scattered external wheeze. The patient has a valve chest. CVS: Regular rate and rhythm, normal S1 and S2, no gallops, no murmurs, no rubs ABDOMEN: Soft, nontender. No hepatosplenomegaly, normal bowel sounds, no guarding or rigidity. EXTREMITIES: No clubbing, no edema, no cyanosis, 2+ pulses and upper and lower extremities. MUSCULOSKELETAL: Muscle strength and tone normal. SPINE: No scoliosis or deformity SKIN: No rashes CENTRAL NERVOUS SYSTEM: Alert and oriented -3. No focal deficits, tone is normal in all 4 extremities. PSYCHIATRIC: Alert and oriented -3. Appropriate affect. Intact judgment and insight. - Labs CBC & Chem 7: 03/08/21 10:19 03/07/21 09:41 Labs: Abnormal Lab Results - Last 24 Hours (Table) 03/07/21 03/07/21 03/08/21 Range/Units 09:41 09:41 10:19 RDW 17.2 H 16.8 H (11.5-15.5) % Lymphocytes # 0.4 L 0.4 L (1.0-4.8) k/uL Sodium 136 L (137-145) mmol/L BUN 22 H (7-17) mg/dL Glucose 141 H (74-99) mg/dL Alkaline Phosphatase 153 H (38-126) U/L Total Protein 5.1 L (6.3-8.2) g/dL Albumin 2.7 L (3.5-5.0) g/dL Assessment and Plan Plan: #1. Acute on chronic hypoxic respiratory failure related to acute COVID 19 related to pneumonia, currently on 10 L of oxygen by nasal cannula. The patient is on Decadron IV and Lovenox. The patient is also on empiric antibiotic coverage with IV Zosyn. Focused on is minimally elevated. There is also a component of COPD exacerbation. The patient is chronically debilitated. She also has meghna in her sputum and the patient is on nystatin to swish and swallow. The LDH is low at 535 and a CRP is still pending for now. D-dimer is at 3.95. Otherwise, the patient is doing well. She has been weaned down from 15 L down to 10 L and she is working with her incentive spirometer. Condition is stable, probably somewhat improved compared to yesterday. #2. Acute exacerbation of COPD, stable #3. Chronic and ongoing history of tobacco use and nicotine addiction #4. History of CVA with paresis #5. Weakness and fatigue with multiple falls and right-sided rib fracture #6. History of hypertension #7. Hypothyroidism #8. History of diverticular disease #9. History of depression Plan: We'll continue essentially the same treatment and will going to attempt to wean down the FiO2, currently on 10 L Continue IV Solu-Medrol Anticoagulation with Lovenox IV Zosyn This continued IV fluids to KVO Repeat chest x-ray Aggressive pulmonary toileting Nystatin to swish and swallow for oropharyngeal candidiasis. We'll continue to follow Long-term prognosis poor baseline above-mentioned comorbidities and advanced lung disease.
[2021-03-08 11:47] LABS: ALT 9 U/L (4-34); AST 30 U/L (14-36); African American GFR (CKD) >90 (>60 ml/min/1.73 sqM); Albumin 2.7 g/dL (3.5-5.0); Alkaline Phosphatase 146 U/L (38-126); Anion Gap 7 mmol/L; Blood Urea Nitrogen 22 mg/dL (7-17); Calcium 8.6 mg/dL (8.4-10.2); Carbon Dioxide 26 mmol/L (22-30); Chloride 103 mmol/L (98-107); Glucose 121 mg/dL (74-99); Non-African American GFR(CKD) >90 (>60 ml/min/1.73 sqM); Potassium 4.2 mmol/L (3.5-5.1); Sodium 136 mmol/L (137-145); Total Bilirubin 0.4 mg/dL (0.2-1.3); Total Protein 5.1 g/dL (6.3-8.2)
[2021-03-08] MEDS: ATORVASTATIN 10 MG TAB PO SCH (20:32)
[2021-03-09] MEDS: methylPREDNISolone SOD SUCCI 125 MG/2 ML VIAL IV SCH ×2 (00:51→05:24)
[2021-03-09] MEDS: MORPHINE SULFATE 2 MG/ML SYRINGE IVP PRN ×3 (01:42→21:34)
[2021-03-09] MEDS: PIPERACILLIN-TAZOBACTAM 3.375 GM in SODIUM CHLORIDE 0.9% 100 ML IVPB SCH ×4 (05:24→21:18)
[2021-03-09] MEDS: LEVOTHYROXINE 50 MCG TAB PO SCH (05:26)
--- NOTE | 2021-03-09 06:43 | XR ---
EXAMINATION TYPE: XR chest 1V portable DATE OF EXAM: 03/09/2021 CLINICAL HISTORY: Difficulty breathing progress study. TECHNIQUE: Single AP portable upright view of the chest is obtained. COMPARISON: Chest x-ray from 4 days earlier and older studies FINDINGS: Background chronic parenchymal changes with increased mid to lower lung opacities bilatera lly. Cardiac silhouette size stable and within normal limits. Osseous structures are intact. IMPRESSION: Chronic emphysematous and pulmonary fibrotic changes with small tiny bilateral pleural ef fusions redemonstrated. Bilateral mid to lower lung edema and/or infiltrates redemonstrated. No signi ficant change from most recent x-ray.
[2021-03-09] MEDS: PANTOPRAZOLE 40 MG TABLET PO SCH (08:02)
[2021-03-09] MEDS: ASPIRIN 81 MG PO SCH (08:02)
[2021-03-09] MEDS: ASCORBIC ACID 500 MG TAB PO SCH (08:02)
[2021-03-09] MEDS: NYSTATIN 100,000 UNIT/ML SUSP 500,000 UNIT/5 ML CUP PO SCH ×4 (08:03→21:16)
[2021-03-09] MEDS: CLOPIDOGREL 75 MG TAB PO SCH (08:03)
[2021-03-09] MEDS: PRIMIDONE 50 MG TAB PO SCH ×3 (08:03→21:16)
[2021-03-09] MEDS: CARBIDOPA-LEVODOPA 25-100 MG 1 EACH TAB PO SCH ×3 (08:03→21:16)
[2021-03-09] MEDS: BACLOFEN 10 MG TAB PO SCH ×3 (08:03→21:16)
[2021-03-09] MEDS: ENOXAPARIN 40 MG/0.4 ML SYRINGE SQ SCH (08:04)
[2021-03-09] MEDS: ZINC SULFATE 220 MG CAP PO SCH (08:04)
[2021-03-09] MEDS: CHOLECALCIFEROL 25 MCG (1000 IU) TABLET PO SCH (08:05)
[2021-03-09] MEDS: METOPROLOL TARTRATE 12.5 MG TAB PO SCH ×2 (08:06→21:16)
--- NOTE | 2021-03-09 09:36 | P.PN ---
Subjective Progress Note Date: 03/09/21 80-year-old female, who presents to the emergency department, brought in by EMS, on February 28. She apparently complained of weakness, and fatigue, with multiple falls. She apparently fell once in the bathroom, and then once subsequent to that while sitting on the bed. She apparently came into the emergency room complaining of diffuse aches and pains including right rib pain, and some issues with her right foot. The patient apparently had a stroke in 2004, and has left- sided weakness as a residual. The patient also has a history of chronic obstructive pulmonary disease, and sees our nurse practitioner in the office for that. She apparently did test positive for coronavirus, and hasn't been feeling well for at least 2 weeks. She has a history of COPD, stroke, hypothyroidism, diverticular disease, depression, hypertension, and nasal septal deviation. She does continue to smoke on a daily basis. Lab data includes a white count of 8.1, hemoglobin 11, hematocrit 31.9, platelet count 339,000. Sodium was 126, potassium 3, chloride 90, CO2 30, anion gap 6, BUN 20, creatinine 0.46. Brain C T only showed cerebral atrophy, nothing acute. Chest x-ray shows right upper lobe, and right lower lobe pneumonia, which is new. There is also a right-sided rib fracture. X-rays of the right and left knee showed some chronic changes, nothing acute and certainly no fractures. Hip x-rays were negative as well. Progress note dated 03/02/2021. 80-year-old female, that we saw in the emergency department yesterday. She came with complaints of weakness, fatigue, she had multiple falls. X-rays I believe are all negative, although apparently she didn't have a right-sided rib fracture. She also may have a right upper lobe and right lower lobe pneumonia, which may relate to aspiration. Currently, the patient appears to be much more alert and awake today. She is on nasal O2 at 4 L. She is getting saline at 75 mL an hour. White count was 3, hemoglobin 11.7, hematocrit 35.9, platelet count was 302,000. On 03/03/2021 patient seen in follow-up on medical floor, she is currently on 8 L of oxygen pulse ox of 91%, is very congested, her chest is rattly. She is weak, she states she is able to bring up some phlegm which is usually white or light yellow, trace chest x-ray shows patchy bilateral lung infiltrates. Today's labs have been noted, white blood cell count is 5.8, hemoglobin is 11.8, d-dimer is 2.67, sodium is improving, up to 134, rest of electrolytes were within normal limits, BUN is 11 creatinine 0.48. CRP is 49.6, LDH is 461. Pro- calcitonin level is 0.32. Patient continues on inhalers, she continues on Zosyn, IV hydration with 0.9 normal saline at a rate of 75 ML per hour, and Decadron 6 mg daily in addition to vitamins. On today's evaluation of 03/04/2021 and seeing the patient for a follow-up regarding obesity-related pneumonia. The patient is on 10 L of oxygen by nasal cannula and the patient is pulse oxing above 91%. The patient remains on IV Solu-Medrol. The patient is also on Lovenox 40 mg subcu for DVT prophylaxis. The patient on Symbicort. Patient is on empiric antibiotic coverage with IV Zosyn. D-dimer from yesterday was 167. Rest of the blood work and electrodes are essentially normal. The LDH from yesterday was 461 with a CRP of 49. DD was 2.67. The chest x-ray showing diffuse bilateral pulmonary infiltrates somewhat asymmetric. The patient has history of Parkinson's the patient has increased weakness and falls at a time of admission the patient was quite weak related to the infection. The patient has been on Sinemet regarding her Parkinson's disease. She is quite spasticity. Neurology evaluated the patient. The patient has chronic issues with mobility and limited range of motion. No obvious fractures of her knees based on x-rays. She does have chronic bilateral lower extremity edema. She has a previous history of CVA and secondary paresis. 03/05/2021 the patient is currently on 15 L of oxygen by nasal cannula. The patient has equipment he-related pneumonia and the patient is currently an acute hypoxic respiratory failure. The patient remains on IV Solu Medrol some and the patient is currently on 60 mg IV every 6 hours. Yesterday she was on 10 L and she had to be raised up on her oxygen flow. Her vitals currently are all stable and the patient is afebrile. Her current pulse ox is 92%. Labs are not obtained from today. Latest d-dimer is at 2.67. The patient is currently also on Lovenox 40 mg subcu every 24 hours. On yesterday's evaluation the patient was quite had a congested chest. Her cough is weak and she is unable to bring up any sputum. On examination she has marked diminished breath sounds bilaterally. Her chest wall is also sore. She is extremely frail and she has developed chest regarding his COPD. She is covered with IV Zosyn as an empiric antibiotic coverage. IV fluids are running at 75 mL an hour. She also has chronic spasticity related to Underlying Previous History of CVA and Paresis. On 03/06/2021 the patient remains on 15 L and her condition is probably the same. I have her on normal saline at the rate of 75 mL an hour and she is also on IV Solu-Medrol 60 mg every 6 hours. She has a congested cough along with COPD exacerbation and community-related pneumonia. She is feeling slightly better on today's evaluation. She is on Lovenox 40 mg subcu every 24 hrDimer is at 3.95 and the patient's and the white cell count is at 5.3 with a hemoglobin of 12.3. The progesterone level was at 0.32. She is tolerating diet. She is using incentive spirometer. She typically uses 2 L of oxygen at home. 03/07/2021 the patient is being seen for a follow-up the patient remains on 15 L about 2 by nasal cannula. She continues to have a congested cough. Clinically she is feeling better. Nevertheless, her actual requirements have remained unchanged. I noted that her pulse ox is around 96% on 15 L that she may be potentially wean down slightly on her FiO2. Otherwise, no other new complaints for now. She is on IV Solu Medrol 60 mg every 6 hours. She is also in a empiric antibiotic coverage with IV Zosyn. We added nystatin for oropharyngeal candidiasis and she is able to swallow. She is using incentive spirometer. She is extremely debilitated and cachectic. He remains on Lovenox 40 mg subcu for DVT prophylaxis. 03/08/2021, the patient is being seen for a follow-up. The patient is currently on oxygen at 10 L per minute. She has a congested cough and she is unable to bring up much sputum. She is using incentive spirometer. She remains on IV Solu-Medrol. She remains on IV Zosyn. Nystatin was also added for oropharyngeal candidiasis. No significant complaints otherwise for now. Oral intake is limited and the patient is quite cachectic and she carries a body mass index of 16.9. White cell count is at 4 with a hemoglobin of 12.1. She is afebrile. She is hemodynamically stable. 03/09/2021 the patient remains on 10 L of oxygen by nasal cannula. She reports some slight improvement. Her pulse ox is 92% on 10 L of oxygen by nasal cannula. She is afebrile. The patient's white cell count is at 4 and she continues to have lymphopenia. Renal function stable. Inflammatory markers have been low. She is bringing up some white sputum. She remains on IV Zosyn. She remains on IV Solu-Medrol. Tolerating her diet. Objective - Vital Signs Vital signs: Vital Signs Temp 97.8 F 03/09/21 09:15 Pulse 59 L 03/09/21 09:15 Resp 18 03/09/21 09:15 BP 99/54 03/09/21 09:15 Pulse Ox 92 L 03/09/21 09:15 Intake & Output 03/08/21 03/09/21 03/09/21 18:59 06:59 18:59 Intake Total 750 Balance 750 Weight 48.988 kg Intake: IV 200 Piperacillin-Tazobactam 3 200 .375 gm In Sodium Chloride 0.9% 100 ml @ 25 mls/hr IVPB Q8H [facility] Rx#: [id number] Oral 550 Other: Voiding Method Bedpan # Voids 2 4 # Bowel Movements 0 - Exam GENERAL EXAM: Alert, very pleasant 80-year-old white female, and 10L of oxygen a pulse ox of 91%, she is very frail, debilitated, weak looking, chronically ill-looking, recurrent congestive cough, sometimes productive comfortable in no apparent distress. HEAD: Normocephalic/atraumatic. EYES: Normal reaction of pupils, equal size. Conjunctiva pink, sclera white. NOSE: Clear with pink turbinates. THROAT: No erythema or exudates. NECK: No masses, no JVD, no thyroid enlargement, no adenopathy. CHEST: No chest wall deformity. Symmetrical expansion. LUNGS: Markedly diminished breath sound bilaterally and scattered rhonchi and scattered external wheeze. The patient has a valve chest. CVS: Regular rate and rhythm, normal S1 and S2, no gallops, no murmurs, no rubs ABDOMEN: Soft, nontender. No hepatosplenomegaly, normal bowel sounds, no guarding or rigidity. EXTREMITIES: No clubbing, no edema, no cyanosis, 2+ pulses and upper and lower extremities. MUSCULOSKELETAL: Muscle strength and tone normal. SPINE: No scoliosis or deformity SKIN: No rashes CENTRAL NERVOUS SYSTEM: Alert and oriented -3. No focal deficits, tone is normal in all 4 extremities. PSYCHIATRIC: Alert and oriented -3. Appropriate affect. Intact judgment and insight. - Labs CBC & Chem 7: 03/08/21 10:19 03/08/21 10:19 Labs: Abnormal Lab Results - Last 24 Hours (Table) 03/08/21 03/08/21 Range/Units 10:19 10: RDW 16.8 H (11.5-15.5) % Lymphocytes # 0.4 L (1.0-4.8) k/uL Sodium 136 L (137-145) mmol/L BUN 22 H (7-17) mg/dL Creatinine 0.46 L (0.52-1.04) mg/dL Glucose 121 H (74-99) mg/dL Alkaline Phosphatase 146 H (38-126) U/L Total Protein 5.1 L (6.3-8.2) g/dL Albumin 2.7 L (3.5-5.0) g/dL Assessment and Plan Plan: #1. Acute on chronic hypoxic respiratory failure related to acute COVID 19 related to pneumonia, currently on 10 L of oxygen by nasal cannula. The patient is on Solu-Medrol IV and Lovenox. The patient is also on empiric antibiotic coverage with IV Zosyn. She is on 10 L of oxygen by nasal cannula. She is on Symbicort. She is on albuterol HFA 4 times a day she has her chest x-ray is showing stable bilateral pulmonary rate, essentially unchanged. #2. Acute exacerbation of COPD, stable #3. Chronic and ongoing history of tobacco use and nicotine addiction #4. History of CVA with paresis #5. Weakness and fatigue with multiple falls and right-sided rib fracture #6. History of hypertension #7. Hypothyroidism #8. History of diverticular disease #9. History of depression Plan: We'll continue essentially the same treatment and will going to attempt to wean down the FiO2, currently on 10 L, current pulse ox is 92% Continue IV Solu-Medrol and taper the dose to 40 mg every 8 hours Anticoagulation with Lovenox IV Zosyn This continued IV fluids to KVO Repeat chest x-ray Aggressive pulmonary toileting Nystatin to swish and swallow for oropharyngeal candidiasis. We'll continue to follow Long-term prognosis poor baseline above-mentioned comorbidities and advanced lung disease.
[2021-03-09] MEDS: ALBUTEROL HFA INHALER INHALATION SCH ×4 (09:39→20:02)
[2021-03-09] MEDS: SYMBICORT 160-4.5 MCG INHALER INHALATION SCH ×2 (09:39→20:02)
--- NOTE | 2021-03-09 09:45 | P.PN ---
Subjective Progress Note Date: 03/09/21 I am assuming care of this patient as of 03/06/2021 at 8 AM. I was out of town and Dr. Aguilera was covering for me. HMP done by Dr. Camejo on 03/01/2021 Elicia Bradshaw, is an 80-year-old female admitted to [facility] through emergency room after presenting with symptoms of COVID- 19 pneumonia. Patient was having frequent falls at home along with chest pain and coughing for 3 days prior to hospitalization patient has a past medical history of COPD, CVA, hypertension, hypothyroidism, depression, diverticulitis, Parkinson's disease, COPD maintained on home O2 and nicotine dependence. Patient was positive COVID-19 chest x-ray performed in ER showing right upper lobe and right lower lobe pneumonia right-sided rib fracture. Patient was admitted to observation unit. Pulmonary and neurology services were consulted. On 03/06/2021 patient remains in the observation unit. Patient's alert and oriented 3 area patient remains on IV Solu-Medrol, IV Zosyn, vitamin C, zinc, vitamin D. She remains on high flow oxygen at 15 L. Pulmonary services are following. Patient was evaluated by neurology services due to increased falls and Parkinson's disease. No changes to Parkinson's medication. At this time patient denies chest pain. Patient denies nausea vomiting or diarrhea. Patient denies any urinary burning or frequency area potassium 3.3 replace per protocol. Morphine added for increase pain. On 03/07/2021 patient was seen and examined on the medical floor she is alert and oriented 3 in no apparent distress she feels better he has less cough and shortness of breath currently she is maintained on oxygen 10 L via high flow nasal cannula there is no fever or chills no headache or dizziness no chest pain no shortness of breath at rest she has shortness of breath with any activity there is no nausea or vomiting no abdominal pain no diarrhea and no urinary symptoms On 03/08/2021 patient is alert and oriented 3. Patient remains on 10 L high flow nasal cannula. Patient remains with cough and shortness breath. Patient denies nausea vomiting or diarrhea. Patient denies any urinary burning or frequency On 03/09/2021 patient was seen and examined on the medical floor she is alert and oriented 3 in no apparent distress, she is maintained on oxygen at 10 L via nasal cannula, she is still complaining of shortness of breath and occasional cough otherwise she denies any complaints she is tolerating diet 12 vital examination reveals a temperature of 97.8 pulse 59 respiration 18 blood pressure 99/54 pulse ox 92% on 10 L high flow cannula white blood count 4.0 hemoglobin 12.1 platelet count 326 sodium 136 potassium 4.2 chloride 103 CO2 26 BUN 22 creatinine 0.46 liver function is normal, patient is maintained on Symbicort inhaler albuterol inhaler subcu Lovenox IV Solu-Medrol and IV Zosyn Objective - Vital Signs Vital signs: Vital Signs Temp 97.8 F 03/09/21 04:00 Pulse 56 L 03/09/21 04:00 Resp 15 03/09/21 04:00 BP 126/56 03/09/21 04:00 Pulse Ox 85 L 03/09/21 04:00 Intake & Output 03/08/21 03/09/21 03/09/21 18:59 06:59 18:59 Intake Total 750 Balance 750 Weight 48.988 kg Intake: IV 200 Piperacillin-Tazobactam 3 200 .375 gm In Sodium Chloride 0.9% 100 ml @ 25 mls/hr IVPB Q8H [facility] Rx#: [id number] Oral 550 Other: Voiding Method Bedpan # Voids 2 4 # Bowel Movements 0 - Exam In general patient is alert and oriented 3 in no apparent distress Head normocephalic and atraumatic Neck supple no JVD no goiter no lymphadenopathy Lungs diminished bilaterally Heart regular rate and rhythm S1-S2, no rub or gallop Abdomen is soft nontender nondistended positive bowel sounds no hepatosplenomegaly Extremities no edema Neuro no gross focal deficit Tremor noted known Parkinson's disease - Labs CBC & Chem 7: 03/08/21 10:19 03/08/21 10:19 Labs: Abnormal Lab Results - Last 24 Hours (Table) 03/08/21 03/08/21 Range/Units 10:19 10:19 RDW 16.8 H (11.5-15.5) % Lymphocytes # 0.4 L (1.0-4.8) k/uL Sodium 136 L (137-145) mmol/L BUN 22 H (7-17) mg/dL Creatinine 0.46 L (0.52-1.04) mg/dL Glucose 121 H (74-99) mg/dL Alkaline Phosphatase 146 H (38-126) U/L Total Protein 5.1 L (6.3-8.2) g/dL Albumin 2.7 L (3.5-5.0) g/dL Assessment and Plan Assessment: 1. Acute on chronic hypoxic respiratory failure secondary to acute COVID-19 related pneumonia. Currently on IV Solu-Medrol and Zosyn 2. Acute exacerbation of COPD 3. Parkinson's disease. Patient maintained on levodopa 4. Chronic hypoxic respiratory failure. Maintain on home oxygen 2 L 5. Multiple falls and generalized weakness. And right-sided rib fracture Patient was evaluated by neurology services due to known history of Parkinson's disease no changes to medication 6. Ongoing nicotine dependence despite extensive education on the importance of smoking sensation 7. History of CVA 8. Essential hypertension 9. History of hypothyroidism 10. History of diverticular disease 11. History of depression 12. Hypokalemia this and replace per protocol 13. Bilateral knee pain. Patient was evaluated by orthopedic services. It is reported this is a chronic issue. Recommending physical therapy with no plans for surgical intervention DVT prophylaxis Lovenox. GI prophylaxis Protonix Sputum cultures pending. Pulmonary service is following. Patient is improving gradually Maintained on IV Solu-Medrol and IV Zosyn Maintained on vitamin C vitamin D and zinc Repeat labs ordered for a.m. PT OT consulted Social consult for possible placement
[2021-03-09 11:12] LABS: Anisocytosis Slight; Basophils % (A) 0 %; Eosinophils % (A) 0 %; HCT 35.4 % (34.0-46.0); HGB 11.7 gm/dL (11.4-16.0); Hypochromasia Slight; Lymphocytes # (A) 0.5 k/uL (1.0-4.8); Lymphocytes % (A) 7 %; MCH 28.9 pg (25.0-35.0); MCHC 33.1 g/dL (31.0-37.0); MCV 87.2 fL (80.0-100.0); Monocytes # (A) 0.2 k/uL (0-1.0); Monocytes % (A) 3 %; Neutrophils # (A) 6.3 k/uL (1.3-7.7); Neutrophils % (A) 90 %; Platelet Count 376 k/uL (150-450); RBC 4.06 m/uL (3.80-5.40); RDW 17.1 % (11.5-15.5); WBC 7.1 k/uL (3.8-10.6)
[2021-03-09 11:20] LABS: ALT 10 U/L (4-34); AST 24 U/L (14-36); African American GFR (CKD) >90 (>60 ml/min/1.73 sqM); Albumin 2.7 g/dL (3.5-5.0); Alkaline Phosphatase 131 U/L (38-126); Anion Gap 5 mmol/L; Blood Urea Nitrogen 23 mg/dL (7-17); Calcium 8.2 mg/dL (8.4-10.2); Carbon Dioxide 28 mmol/L (22-30); Chloride 104 mmol/L (98-107); Glucose 171 mg/dL (74-99); Non-African American GFR(CKD) >90 (>60 ml/min/1.73 sqM); Sodium 137 mmol/L (137-145); Total Bilirubin 0.4 mg/dL (0.2-1.3); Total Protein 4.9 g/dL (6.3-8.2)
[2021-03-09] MEDS: methylPREDNISolone SOD SUCCI 40 MG/ML 1 ML VIAL IV SCH ×2 (16:20→23:52)
[2021-03-09] MEDS: CYANOCOBALAMIN 500 MCG TAB PO SCH (16:20)
[2021-03-09] MEDS: ATORVASTATIN 10 MG TAB PO SCH (21:16)
[2021-03-10] MEDS: LEVOTHYROXINE 50 MCG TAB PO SCH (05:11)
[2021-03-10] MEDS: PIPERACILLIN-TAZOBACTAM 3.375 GM in SODIUM CHLORIDE 0.9% 100 ML IVPB SCH ×3 (05:11→21:52)
[2021-03-10] MEDS: methylPREDNISolone SOD SUCCI 40 MG/ML 1 ML VIAL IV SCH ×3 (07:30→23:03)
[2021-03-10] MEDS: ASCORBIC ACID 500 MG TAB PO SCH (07:30)
[2021-03-10] MEDS: PANTOPRAZOLE 40 MG TABLET PO SCH (07:30)
[2021-03-10] MEDS: ASPIRIN 81 MG PO SCH (07:31)
[2021-03-10] MEDS: CARBIDOPA-LEVODOPA 25-100 MG 1 EACH TAB PO SCH ×3 (07:31→21:53)
[2021-03-10] MEDS: CHOLECALCIFEROL 25 MCG (1000 IU) TABLET PO SCH (07:31)
[2021-03-10] MEDS: BACLOFEN 10 MG TAB PO SCH ×3 (07:31→21:53)
[2021-03-10] MEDS: CYANOCOBALAMIN 500 MCG TAB PO SCH (07:32)
[2021-03-10] MEDS: CLOPIDOGREL 75 MG TAB PO SCH (07:32)
[2021-03-10] MEDS: PRIMIDONE 50 MG TAB PO SCH ×3 (07:32→21:53)
[2021-03-10] MEDS: NYSTATIN 100,000 UNIT/ML SUSP 500,000 UNIT/5 ML CUP PO SCH ×4 (07:33→21:53)
[2021-03-10] MEDS: ENOXAPARIN 40 MG/0.4 ML SYRINGE SQ SCH (07:33)
[2021-03-10] MEDS: ZINC SULFATE 220 MG CAP PO SCH (07:33)
[2021-03-10] MEDS: METOPROLOL TARTRATE 12.5 MG TAB PO SCH ×2 (07:36→21:52)
[2021-03-10] MEDS: MORPHINE SULFATE 2 MG/ML SYRINGE IVP PRN ×3 (07:46→23:03)
[2021-03-10] MEDS: SYMBICORT 160-4.5 MCG INHALER INHALATION SCH ×2 (07:49→19:32)
[2021-03-10] MEDS: ALBUTEROL HFA INHALER INHALATION SCH ×4 (07:49→19:31)
[2021-03-10 09:14] LABS: Anisocytosis Slight; Basophils % (A) 0 %; Eosinophils % (A) 0 %; HCT 40.1 % (34.0-46.0); HGB 12.4 gm/dL (11.4-16.0); Hypochromasia Slight; Lymphocytes # (A) 1.2 k/uL (1.0-4.8); Lymphocytes % (A) 16 %; MCH 27.5 pg (25.0-35.0); MCHC 30.9 g/dL (31.0-37.0); MCV 89.2 fL (80.0-100.0); Mean Platelet Volume 7.9; Monocytes # (A) 0.3 k/uL (0-1.0); Monocytes % (A) 4 %; Neutrophils # (A) 6.1 k/uL (1.3-7.7); Neutrophils % (A) 80 %; Platelet Count 441 k/uL (150-450); RBC 4.49 m/uL (3.80-5.40); RDW 17.2 % (11.5-15.5); WBC 7.6 k/uL (3.8-10.6)
[2021-03-10 09:28] LABS: ALT 18 U/L (4-34); AST 24 U/L (14-36); African American GFR (CKD) >90 (>60 ml/min/1.73 sqM); Albumin 2.9 g/dL (3.5-5.0); Alkaline Phosphatase 154 U/L (38-126); Anion Gap 2 mmol/L; Blood Urea Nitrogen 21 mg/dL (7-17); Calcium 8.7 mg/dL (8.4-10.2); Carbon Dioxide 31 mmol/L (22-30); Chloride 105 mmol/L (98-107); Glucose 92 mg/dL (74-99); Non-African American GFR(CKD) >90 (>60 ml/min/1.73 sqM); Potassium 4.6 mmol/L (3.5-5.1); Sodium 138 mmol/L (137-145); Total Bilirubin 0.5 mg/dL (0.2-1.3); Total Protein 5.3 g/dL (6.3-8.2)
--- NOTE | 2021-03-10 09:44 | P.PN ---
Subjective Progress Note Date: 03/10/21 80-year-old female, who presents to the emergency department, brought in by EMS, on February 28. She apparently complained of weakness, and fatigue, with multiple falls. She apparently fell once in the bathroom, and then once subsequent to that while sitting on the bed. She apparently came into the emergency room complaining of diffuse aches and pains including right rib pain, and some issues with her right foot. The patient apparently had a stroke in 2004, and has left- sided weakness as a residual. The patient also has a history of chronic obstructive pulmonary disease, and sees our nurse practitioner in the office for that. She apparently did test positive for coronavirus, and hasn't been feeling well for at least 2 weeks. She has a history of COPD, stroke, hypothyroidism, diverticular disease, depression, hypertension, and nasal septal deviation. She does continue to smoke on a daily basis. Lab data includes a white count of 8.1, hemoglobin 11, hematocrit 31.9, platelet count 339,000. Sodium was 126, potassium 3, chloride 90, CO2 30, anion gap 6, BUN 20, creatinine 0.46. Brain C T only showed cerebral atrophy, nothing acute. Chest x-ray shows right upper lobe, and right lower lobe pneumonia, which is new. There is also a right-sided rib fracture. X-rays of the right and left knee showed some chronic changes, nothing acute and certainly no fractures. Hip x-rays were negative as well. Progress note dated 03/02/2021. 80-year-old female, that we saw in the emergency department yesterday. She came with complaints of weakness, fatigue, she had multiple falls. X-rays I believe are all negative, although apparently she didn't have a right-sided rib fracture. She also may have a right upper lobe and right lower lobe pneumonia, which may relate to aspiration. Currently, the patient appears to be much more alert and awake today. She is on nasal O2 at 4 L. She is getting saline at 75 mL an hour. White count was 3, hemoglobin 11.7, hematocrit 35.9, platelet count was 302,000. On 03/03/2021 patient seen in follow-up on medical floor, she is currently on 8 L of oxygen pulse ox of 91%, is very congested, her chest is rattly. She is weak, she states she is able to bring up some phlegm which is usually white or light yellow, trace chest x-ray shows patchy bilateral lung infiltrates. Today's labs have been noted, white blood cell count is 5.8, hemoglobin is 11.8, d-dimer is 2.67, sodium is improving, up to 134, rest of electrolytes were within normal limits, BUN is 11 creatinine 0.48. CRP is 49.6, LDH is 461. Pro- calcitonin level is 0.32. Patient continues on inhalers, she continues on Zosyn, IV hydration with 0.9 normal saline at a rate of 75 ML per hour, and Decadron 6 mg daily in addition to vitamins. On today's evaluation of 03/04/2021 and seeing the patient for a follow-up regarding obesity-related pneumonia. The patient is on 10 L of oxygen by nasal cannula and the patient is pulse oxing above 91%. The patient remains on IV Solu-Medrol. The patient is also on Lovenox 40 mg subcu for DVT prophylaxis. The patient on Symbicort. Patient is on empiric antibiotic coverage with IV Zosyn. D-dimer from yesterday was 167. Rest of the blood work and electrodes are essentially normal. The LDH from yesterday was 461 with a CRP of 49. DD was 2.67. The chest x-ray showing diffuse bilateral pulmonary infiltrates somewhat asymmetric. The patient has history of Parkinson's the patient has increased weakness and falls at a time of admission the patient was quite weak related to the infection. The patient has been on Sinemet regarding her Parkinson's disease. She is quite spasticity. Neurology evaluated the patient. The patient has chronic issues with mobility and limited range of motion. No obvious fractures of her knees based on x-rays. She does have chronic bilateral lower extremity edema. She has a previous history of CVA and secondary paresis. 03/05/2021 the patient is currently on 15 L of oxygen by nasal cannula. The patient has equipment he-related pneumonia and the patient is currently an acute hypoxic respiratory failure. The patient remains on IV Solu Medrol some and the patient is currently on 60 mg IV every 6 hours. Yesterday she was on 10 L and she had to be raised up on her oxygen flow. Her vitals currently are all stable and the patient is afebrile. Her current pulse ox is 92%. Labs are not obtained from today. Latest d-dimer is at 2.67. The patient is currently also on Lovenox 40 mg subcu every 24 hours. On yesterday's evaluation the patient was quite had a congested chest. Her cough is weak and she is unable to bring up any sputum. On examination she has marked diminished breath sounds bilaterally. Her chest wall is also sore. She is extremely frail and she has developed chest regarding his COPD. She is covered with IV Zosyn as an empiric antibiotic coverage. IV fluids are running at 75 mL an hour. She also has chronic spasticity related to Underlying Previous History of CVA and Paresis. On 03/06/2021 the patient remains on 15 L and her condition is probably the same. I have her on normal saline at the rate of 75 mL an hour and she is also on IV Solu-Medrol 60 mg every 6 hours. She has a congested cough along with COPD exacerbation and community-related pneumonia. She is feeling slightly better on today's evaluation. She is on Lovenox 40 mg subcu every 24 hrDimer is at 3.95 and the patient's and the white cell count is at 5.3 with a hemoglobin of 12.3. The progesterone level was at 0.32. She is tolerating diet. She is using incentive spirometer. She typically uses 2 L of oxygen at home. 03/07/2021 the patient is being seen for a follow-up the patient remains on 15 L about 2 by nasal cannula. She continues to have a congested cough. Clinically she is feeling better. Nevertheless, her actual requirements have remained unchanged. I noted that her pulse ox is around 96% on 15 L that she may be potentially wean down slightly on her FiO2. Otherwise, no other new complaints for now. She is on IV Solu Medrol 60 mg every 6 hours. She is also in a empiric antibiotic coverage with IV Zosyn. We added nystatin for oropharyngeal candidiasis and she is able to swallow. She is using incentive spirometer. She is extremely debilitated and cachectic. He remains on Lovenox 40 mg subcu for DVT prophylaxis. 03/08/2021, the patient is being seen for a follow-up. The patient is currently on oxygen at 10 L per minute. She has a congested cough and she is unable to bring up much sputum. She is using incentive spirometer. She remains on IV Solu-Medrol. She remains on IV Zosyn. Nystatin was also added for oropharyngeal candidiasis. No significant complaints otherwise for now. Oral intake is limited and the patient is quite cachectic and she carries a body mass index of 16.9. White cell count is at 4 with a hemoglobin of 12.1. She is afebrile. She is hemodynamically stable. 03/09/2021 the patient remains on 10 L of oxygen by nasal cannula. She reports some slight improvement. Her pulse ox is 92% on 10 L of oxygen by nasal cannula. She is afebrile. The patient's white cell count is at 4 and she continues to have lymphopenia. Renal function stable. Inflammatory markers have been low. She is bringing up some white sputum. She remains on IV Zosyn. She remains on IV Solu-Medrol. Tolerating her diet. 03/10/2021, the patient is laying down comfortably and she does have some minimal amount of labored breathing. She remains on 10 L of oxygen by nasal cannula. No role for further weaning as the patient's pulse ox in the low 90s. She continues to have a congested cough. She remains on IV Solu-Medrol. No chest pain. No altered mentation. Tolerating diet. Using incentive spirometer. A follow-up chest x-ray from yesterday was essentially stable with some ongoing perihilar and lower lobe pulmonary infiltrates. Remains on IV Zosyn.And his sodium is at 138 and a BUN is 21 with a creatinine of 0.4. Liver function tests are essentially within normal limits. Total protein is at 5.3 with an albumin of 2.9. Objective - Vital Signs Vital signs: Vital Signs Temp 97.6 F 03/10/21 03:14 Pulse 77 03/10/21 08:00 Resp 18 03/10/21 08:00 BP 112/56 03/10/21 08:00 Pulse Ox 87 L 03/10/21 08:00 Intake & Output 03/09/21 03/10/21 03/10/21 18:59 06:59 18:59 Intake Total 240 440 Output Total 201 1200 Balance 39 -760 Intake: Intake, IV Titration 200 Amount Piperacillin-Tazobactam 3 200 .375 gm In Sodium Chloride 0.9% 100 ml @ 25 mls/hr IVPB Q8H [facility] Rx#: [id number] Oral 240 240 Output: Urine 200 1200 Stool 1 Other: Voiding Method Bedpan # Voids 1 # Bowel Movements 0 - Exam GENERAL EXAM: Alert, very pleasant 80-year-old white female, and 10L of oxygen a pulse ox of 91%, she is very frail, debilitated, weak looking, chronically ill-looking, recurrent congestive cough, sometimes productive comfortable in no apparent distress. HEAD: Normocephalic/atraumatic. EYES: Normal reaction of pupils, equal size. Conjunctiva pink, sclera white. NOSE: Clear with pink turbinates. THROAT: No erythema or exudates. NECK: No masses, no JVD, no thyroid enlargement, no adenopathy. CHEST: No chest wall deformity. Symmetrical expansion. LUNGS: Markedly diminished breath sound bilaterally and scattered rhonchi and scattered external wheeze. The patient has a valve chest. CVS: Regular rate and rhythm, normal S1 and S2, no gallops, no murmurs, no rubs ABDOMEN: Soft, nontender. No hepatosplenomegaly, normal bowel sounds, no guarding or rigidity. EXTREMITIES: No clubbing, no edema, no cyanosis, 2+ pulses and upper and lower extremities. MUSCULOSKELETAL: Muscle strength and tone normal. SPINE: No scoliosis or deformity SKIN: No rashes CENTRAL NERVOUS SYSTEM: Alert and oriented -3. No focal deficits, tone is normal in all 4 extremities. PSYCHIATRIC: Alert and oriented -3. Appropriate affect. Intact judgment and insight. - Labs CBC & Chem 7: 03/10/21 08:15 03/10/21 08:15 Labs: Abnormal Lab Results - Last 24 Hours (Table) 03/09/21 03/09/21 03/10/21 Range/Units 10:01 10:01 08:15 MCHC 30.9 L (31.0-37.0) g/dL RDW 17.1 H 17.2 H (11.5-15.5) % Lymphocytes # 0.5 L (1.0-4.8) k/uL Carbon Dioxide (22-30) mmol/L BUN 23 H (7-17) mg/dL Creatinine 0.49 L (0.52-1.04) mg/dL Glucose 171 H (74-99) mg/dL Calcium 8.2 L (8.4-10.2) mg/dL Alkaline Phosphatase 131 H (38-126) U/L Total Protein 4.9 L (6.3-8.2) g/dL Albumin 2.7 L (3.5-5.0) g/dL 03/10/21 Range/Units 08:15 MCHC (31.0-37.0) g/dL RDW (11.5-15.5) % Lymphocytes # (1.0-4.8) k/uL Carbon Dioxide 31 H (22-30) mmol/L BUN 21 H (7-17) mg/dL Creatinine 0.47 L (0.52-1.04) mg/dL Glucose (74-99) mg/dL Calcium (8.4-10.2) mg/dL Alkaline Phosphatase 154 H (38-126) U/L Total Protein 5.3 L (6.3-8.2) g/dL Albumin 2.9 L (3.5-5.0) g/dL Assessment and Plan Plan: #1. Acute on chronic hypoxic respiratory failure related to acute COVID 19 related to pneumonia, currently on 10 L of oxygen by nasal cannula. The patient is on Solu-Medrol IV and Lovenox. The patient is also on empiric antibiotic coverage with IV Zosyn. She is on 10 L of oxygen by nasal cannula. She is on Symbicort. She is on albuterol HFA 4 times a day she has her chest x-ray is showing stable bilateral pulmonary rate, stable for now and unchanged compared to yesterday. On 10 L of oxygen by nasal cannula. #2. Acute exacerbation of COPD, stable #3. Chronic and ongoing history of tobacco use and nicotine addiction #4. History of CVA with paresis #5. Weakness and fatigue with multiple falls and right-sided rib fracture #6. History of hypertension #7. Hypothyroidism #8. History of diverticular disease #9. History of depression Plan: We'll continue essentially the same treatment and will going to attempt to wean down the FiO2, currently on 10 L, current pulse ox is 92%, unable to wean it off any further because of her lower pulse ox on 10 L of oxygen by nasal cannula. She needs aggressive chest PT and pulmonary toileting. Continue IV Solu-Medrol and taper the dose to 40 mg every 8 hours and we'll keep the same dose. Anticoagulation with Lovenox IV Zosyn This continued IV fluids to KVO Aggressive pulmonary toileting Nystatin to swish and swallow for oropharyngeal candidiasis. We'll continue to follow Long-term prognosis poor baseline above-mentioned comorbidities and advanced lung disease.
--- NOTE | 2021-03-10 13:34 | P.PN ---
Subjective Progress Note Date: 03/10/21 I am assuming care of this patient as of 03/06/2021 at 8 AM. I was out of town and Dr. Aguilera was covering for me. HMP done by Dr. Camejo on 03/01/2021 Elicia Bradshaw, is an 80-year-old female admitted to [facility] through emergency room after presenting with symptoms of COVID- 19 pneumonia. Patient was having frequent falls at home along with chest pain and coughing for 3 days prior to hospitalization patient has a past medical history of COPD, CVA, hypertension, hypothyroidism, depression, diverticulitis, Parkinson's disease, COPD maintained on home O2 and nicotine dependence. Patient was positive COVID-19 chest x-ray performed in ER showing right upper lobe and right lower lobe pneumonia right-sided rib fracture. Patient was admitted to observation unit. Pulmonary and neurology services were consulted. On 03/06/2021 patient remains in the observation unit. Patient's alert and oriented 3 area patient remains on IV Solu-Medrol, IV Zosyn, vitamin C, zinc, vitamin D. She remains on high flow oxygen at 15 L. Pulmonary services are following. Patient was evaluated by neurology services due to increased falls and Parkinson's disease. No changes to Parkinson's medication. At this time patient denies chest pain. Patient denies nausea vomiting or diarrhea. Patient denies any urinary burning or frequency area potassium 3.3 replace per protocol. Morphine added for increase pain. On 03/07/2021 patient was seen and examined on the medical floor she is alert and oriented 3 in no apparent distress she feels better he has less cough and shortness of breath currently she is maintained on oxygen 10 L via high flow nasal cannula there is no fever or chills no headache or dizziness no chest pain no shortness of breath at rest she has shortness of breath with any activity there is no nausea or vomiting no abdominal pain no diarrhea and no urinary symptoms On 03/08/2021 patient is alert and oriented 3. Patient remains on 10 L high flow nasal cannula. Patient remains with cough and shortness breath. Patient denies nausea vomiting or diarrhea. Patient denies any urinary burning or frequency On 03/09/2021 patient was seen and examined on the medical floor she is alert and oriented 3 in no apparent distress, she is maintained on oxygen at 10 L via nasal cannula, she is still complaining of shortness of breath and occasional cough otherwise she denies any complaints she is tolerating diet 12 vital examination reveals a temperature of 97.8 pulse 59 respiration 18 blood pressure 99/54 pulse ox 92% on 10 L high flow cannula white blood count 4.0 hemoglobin 12.1 platelet count 326 sodium 136 potassium 4.2 chloride 103 CO2 26 BUN 22 creatinine 0.46 liver function is normal, patient is maintained on Symbicort inhaler albuterol inhaler subcu Lovenox IV Solu-Medrol and IV Zosyn On 03/10/2021 patient was seen and examined on the medical floor she is alert and oriented in no distress she is still requiring oxygen 10 L via high flow cannula she is still complaining of shortness of breath with any activity and occasional cough she is complaining of generalized weakness otherwise she denies any complaints there is no fever or chills no headache or dizziness no chest pain no nausea or vomiting no abdominal pain no diarrhea no blood in the stools no burning with urination no frequency or urgency and no hematuria she is still maintained on IV antibiotic IV steroids and subcu Lovenox patient is improving gradually. Objective - Vital Signs Vital signs: Vital Signs Temp 97.6 F 03/10/21 03:14 Pulse 77 03/10/21 08:00 Resp 18 03/10/21 08:00 BP 112/56 03/10/21 08:00 Pulse Ox 87 L 03/10/21 08:00 Intake & Output 03/09/21 03/10/21 03/10/21 18:59 06:59 18:59 Intake Total 240 440 Output Total 201 1200 Balance 39 -760 Intake: Intake, IV Titration 200 Amount Piperacillin-Tazobactam 3 200 .375 gm In Sodium Chloride 0.9% 100 ml @ 25 mls/hr IVPB Q8H [facility] Rx#: [id number] Oral 240 240 Output: Urine 200 1200 Stool 1 Other: Voiding Method Bedpan # Voids 1 # Bowel Movements 0 - Exam In general patient is alert and oriented 3 in no apparent distress Head normocephalic and atraumatic Neck supple no JVD no goiter no lymphadenopathy Lungs diminished bilaterally Heart regular rate and rhythm S1-S2, no rub or gallop Abdomen is soft nontender nondistended positive bowel sounds no hepatosplenomegaly Extremities no edema Neuro no gross focal deficit Tremor noted known Parkinson's disease - Labs CBC & Chem 7: 03/10/21 08:15 03/10/21 08:15 Labs: Abnormal Lab Results - Last 24 Hours (Table) 03/09/21 03/09/21 03/10/21 Range/Units 10:01 10:01 08:15 MCHC 30.9 L (31.0-37.0) g/dL RDW 17.1 H 17.2 H (11.5-15.5) % Lymphocytes # 0.5 L (1.0-4.8) k/uL Carbon Dioxide (22-30) mmol/L BUN 23 H (7-17) mg/dL Creatinine 0.49 L (0.52-1.04) mg/dL Glucose 171 H (74-99) mg/dL Calcium 8.2 L (8.4-10.2) mg/dL Alkaline Phosphatase 131 H (38-126) U/L Total Protein 4.9 L (6.3-8.2) g/dL Albumin 2.7 L (3.5-5.0) g/dL 03/10/21 Range/Units 08:15 MCHC (31.0-37.0) g/dL RDW (11.5-15.5) % Lymphocytes # (1.0-4.8) k/uL Carbon Dioxide 31 H (22-30) mmol/L BUN 21 H (7-17) mg/dL Creatinine 0.47 L (0.52-1.04) mg/dL Glucose (74-99) mg/dL Calcium (8.4-10.2) mg/dL Alkaline Phosphatase 154 H (38-126) U/L Total Protein 5.3 L (6.3-8.2) g/dL Albumin 2.9 L (3.5-5.0) g/dL Assessment and Plan Assessment: 1. Acute on chronic hypoxic respiratory failure secondary to acute COVID-19 related pneumonia. Currently on IV Solu-Medrol and Zosyn 2. Acute exacerbation of COPD 3. Parkinson's disease. Patient maintained on levodopa 4. Chronic hypoxic respiratory failure. Maintain on home oxygen 2 L 5. Multiple falls and generalized weakness. And right-sided rib fracture Patient was evaluated by neurology services due to known history of Parkinson's disease no changes to medication 6. Ongoing nicotine dependence despite extensive education on the importance of smoking sensation 7. History of CVA 8. Essential hypertension 9. History of hypothyroidism 10. History of diverticular disease 11. History of depression 12. Hypokalemia this and replace per protocol 13. Bilateral knee pain. Patient was evaluated by orthopedic services. It is reported this is a chronic issue. Recommending physical therapy with no plans for surgical intervention DVT prophylaxis Lovenox. GI prophylaxis Protonix Sputum cultures pending. Pulmonary service is following. Patient is improving gradually Maintained on IV Solu-Medrol and IV Zosyn Maintained on vitamin C vitamin D and zinc Repeat labs ordered for a.m. PT OT consulted Social consult for possible placement
[2021-03-10] MEDS: ATORVASTATIN 10 MG TAB PO SCH (21:53)
[2021-03-11] MEDS: LEVOTHYROXINE 50 MCG TAB PO SCH (06:22)
[2021-03-11] MEDS: PIPERACILLIN-TAZOBACTAM 3.375 GM in SODIUM CHLORIDE 0.9% 100 ML IVPB SCH ×3 (06:22→19:51)
[2021-03-11] MEDS: MORPHINE SULFATE 2 MG/ML SYRINGE IVP PRN ×3 (06:24→19:59)
[2021-03-11] MEDS: ALBUTEROL HFA INHALER INHALATION SCH ×4 (08:05→21:27)
[2021-03-11] MEDS: SYMBICORT 160-4.5 MCG INHALER INHALATION SCH ×2 (08:05→21:27)
[2021-03-11 08:24] LABS: ALT 7 U/L (4-34); AST 24 U/L (14-36); African American GFR (CKD) >90 (>60 ml/min/1.73 sqM); Albumin 2.7 g/dL (3.5-5.0); Alkaline Phosphatase 138 U/L (38-126); Anion Gap 2 mmol/L; Blood Urea Nitrogen 23 mg/dL (7-17); Calcium 8.5 mg/dL (8.4-10.2); Carbon Dioxide 30 mmol/L (22-30); Chloride 106 mmol/L (98-107); Glucose 112 mg/dL (74-99); Non-African American GFR(CKD) >90 (>60 ml/min/1.73 sqM); Potassium 4.5 mmol/L (3.5-5.1); Sodium 138 mmol/L (137-145); Total Bilirubin 0.5 mg/dL (0.2-1.3)
[2021-03-11 08:25] LABS: Anisocytosis Slight; Basophils % (A) 0 %; Eosinophils % (A) 0 %; HCT 36.4 % (34.0-46.0); HGB 11.4 gm/dL (11.4-16.0); Hypochromasia Slight; Lymphocytes # (A) 0.7 k/uL (1.0-4.8); Lymphocytes % (A) 10 %; MCH 27.7 pg (25.0-35.0); MCHC 31.2 g/dL (31.0-37.0); MCV 88.7 fL (80.0-100.0); Mean Platelet Volume 7.6; Monocytes # (A) 0.3 k/uL (0-1.0); Monocytes % (A) 4 %; Neutrophils # (A) 6.6 k/uL (1.3-7.7); Neutrophils % (A) 85 %; Platelet Count 411 k/uL (150-450); RBC 4.11 m/uL (3.80-5.40); RDW 17.1 % (11.5-15.5); WBC 7.7 k/uL (3.8-10.6)
[2021-03-11] MEDS: ENOXAPARIN 40 MG/0.4 ML SYRINGE SQ SCH (08:27)
[2021-03-11] MEDS: PANTOPRAZOLE 40 MG TABLET PO SCH (08:29)
[2021-03-11] MEDS: methylPREDNISolone SOD SUCCI 40 MG/ML 1 ML VIAL IV SCH ×3 (08:29→23:15)
[2021-03-11] MEDS: ASCORBIC ACID 500 MG TAB PO SCH (08:29)
[2021-03-11] MEDS: ASPIRIN 81 MG PO SCH (08:29)
[2021-03-11] MEDS: ZINC SULFATE 220 MG CAP PO SCH (08:29)
[2021-03-11] MEDS: NYSTATIN 100,000 UNIT/ML SUSP 500,000 UNIT/5 ML CUP PO SCH ×4 (08:29→19:51)
[2021-03-11] MEDS: BACLOFEN 10 MG TAB PO SCH ×3 (08:29→19:51)
[2021-03-11] MEDS: METOPROLOL TARTRATE 12.5 MG TAB PO SCH ×2 (08:29→19:50)
[2021-03-11] MEDS: CHOLECALCIFEROL 25 MCG (1000 IU) TABLET PO SCH (08:30)
[2021-03-11] MEDS: CLOPIDOGREL 75 MG TAB PO SCH (08:30)
[2021-03-11] MEDS: PRIMIDONE 50 MG TAB PO SCH ×3 (08:30→19:50)
[2021-03-11] MEDS: CYANOCOBALAMIN 500 MCG TAB PO SCH (08:30)
[2021-03-11] MEDS: CARBIDOPA-LEVODOPA 25-100 MG 1 EACH TAB PO SCH ×3 (08:30→19:51)
--- NOTE | 2021-03-11 12:18 | P.PN ---
Subjective Progress Note Date: 03/11/21 Principal diagnosis: Weakness and fatigue, falling. 80-year-old female, who presents to the emergency department, brought in by EMS, on February 28. She apparently complained of weakness, and fatigue, with multiple falls. She apparently fell once in the bathroom, and then once subsequent to that while sitting on the bed. She apparently came into the emergency room complaining of diffuse aches and pains including right rib pain, and some issues with her right foot. The patient apparently had a stroke in 2004, and has left- sided weakness as a residual. The patient also has a history of chronic obstructive pulmonary disease, and sees our nurse practitioner in the office for that. She apparently did test positive for coronavirus, and hasn't been feeling well for at least 2 weeks. She has a history of COPD, stroke, hypothyroidism, diverticular disease, depression, hypertension, and nasal septal deviation. She does continue to smoke on a daily basis. Lab data includes a white count of 8.1, hemoglobin 11, hematocrit 31.9, platelet count 339,000. Sodium was 126, p otassium 3, chloride 90, CO2 30, anion gap 6, BUN 20, creatinine 0.46. Brain CT only showed cerebral atrophy, nothing acute. Chest x-ray shows right upper lobe, and right lower lobe pneumonia, which is new. There is also a right-sided rib fracture. X-rays of the right and left knee showed some chronic changes, nothing acute and certainly no fractures. Hip x-rays were negative as well. Progress note dated 03/02/2021. 80-year-old female, that we saw in the emergency department yesterday. She came with complaints of weakness, fatigue, she had multiple falls. X-rays I believe are all negative, although apparently she didn't have a right-sided rib fracture. She also may have a right upper lobe and right lower lobe pneumonia, which may relate to aspiration. Currently, the patient appears to be much more alert and awake today. She is on nasal O2 at 4 L. She is getting saline at 75 mL an hour. White count was 3, hemoglobin 11.7, hematocrit 35.9, platelet count was 302,000. Progress note dated 03/11/2021. 80-year-old female, his been here in the hospital now for 11 days. The patient's currently on 15 L high flow nasal O2, and a saline IV at 10 mL an hour. She is laying flat in bed. She appears to be relatively comfortable. She denies any shortness of breath, cough, wheezing, phlegm production. Her saturations are in the low 90s. We encourage her while laying in bed to move about, right side down, left side down, supine, and prone. Labs today include a white count of 7.7, hemoglobin 11.4, hematocrit 36.4, and platelet count 411,000. Sodium 138, potassium 4.5, chlorides 106, CO2 30, anion gap 2, BUN 23, and creatinine 0.42. Objective - Vital Signs Vital signs: Vital Signs Temp 97.1 F L 03/11/21 08:15 Pulse 91 03/11/21 08:15 Resp 18 03/11/21 08:15 BP 128/73 03/11/21 08:15 Pulse Ox 91 L 03/11/21 08:15 Intake & Output 03/10/21 03/11/21 03/11/21 18:59 06:59 18:59 Intake Total 160 100 Output Total 326 Balance -166 100 Intake: Intake, IV Titration 100 Amount Piperacillin-Tazobactam 3 100 .375 gm In Sodium Chloride 0.9% 100 ml @ 25 mls/hr IVPB Q8H [facility] Rx#: [id number] Oral 160 Output: Urine 325 Stool 1 Other: Voiding Method Bedpan Bedside Commode # Voids 2 4 # Bowel Movements 2 - Exam No acute distress, oriented 3. Currently on 15 L high flow oxygen, with saturations in the low 90s. HEENT examination is grossly unremarkable. . Neck supple. Full range of motion. No adenopathy thyromegaly or neck vein distention. Cardiovascular examination reveals regular rhythm rate. S1-S2 normal. No S3 or S4. No discernible murmur noted. Heart rate 91 bpm. Lungs reveal diffuse rhonchi and scattered crackles. No distinct wheezes. Breath sounds equal bilaterally but diminished throughout. Abdomen soft bowel sounds are heard. No masses or tenderness. Extremities are intact. No cyanosis or clubbing. Lower extremity edema noted. Skin is without rash or lesion. Neurologic examination is brief but nonfocal. - Labs CBC & Chem 7: 03/11/21 07:28 03/11/21 07:28 Labs: Abnormal Lab Results - Last 24 Hours (Table) 03/11/21 03/11/21 Range/Units 07:28 07:28 RDW 17.1 H (11.5-15.5) % Lymphocytes # 0.7 L (1.0-4.8) k/uL BUN 23 H (7-17) mg/dL Creatinine 0.42 L (0.52-1.04) mg/dL Glucose 112 H (74-99) mg/dL Alkaline Phosphatase 138 H (38-126) U/L Total Protein 5.0 L (6.3-8.2) g/dL Albumin 2.7 L (3.5-5.0) g/dL Assessment and Plan Assessment: Coronavirus infection, with COVID 19 pneumonitis/pneumonia. Rule out right-sided bacterial pneumonia. History of COPD, with ongoing tobacco use and nicotine addiction. Chronic hypoxemic respiratory failure. History of CVA. Weakness and fatigue, with multiple falls, and right-sided rib fracture. History of hypertension. History of hypothyroidism. History of diverticular disease. History of depression. Plan: Plan dated 03/01/2021. We will make sure that the patient was placed on appropriate medications for her COPD. In addition, she should be on vitamin C, vitamin D3, and zinc. In addition, she should get Lovenox, and Decadron. We'll check a pro-calcitonin level. We encourage her to stop smoking. A nicotine patch should be a good idea. Additional recommendations and suggestions are forthcoming. Prognosis is guarded. We will continue to follow make recommendations were appropriate. Plan dated 03/02/2021. The patient appears a bit more comfortable today than she did yesterday. The patient was placed on vitamin C, vitamin D3, and zinc. She was also placed on Lovenox, and Decadron. For her COPD, we gave her Symbicort, an albuterol inhaler. We will add Zosyn for possible aspiration pneumonia. Prognosis is guarded. I ordered a pro-calcitonin level, but I don't see on the medical record. Additional recommendations and suggestions are forthcoming. Prognosis is guarded. Plan dated 03/11/2021. Currently, the patient's on 15 L high flow nasal O2. She remains on saline at 10 mL an hour. In addition, she is getting the usual vitamins including vitamin C, vitamin D3, and zinc. The patient remains on Zosyn empirically. It was started on March 09. She is on Solu-Medrol, and Lovenox. Additional recommendations and suggestions are forthcoming. We will continue to follow. Prognosis is guarded. Given her advanced age, she may not recover from this illness and CODE STATUS should be addressed. Time with Patient: Less than 30
--- NOTE | 2021-03-11 18:14 | P.PN ---
Subjective Progress Note Date: 03/11/21 I am assuming care of this patient as of 03/06/2021 at 8 AM. I was out of town and Dr. Aguilera was covering for me. HMP done by Dr. Camejo on 03/01/2021 Elicia Bradshaw, is an 80-year-old female admitted to [facility] through emergency room after presenting with symptoms of COVID- 19 pneumonia. Patient was having frequent falls at home along with chest pain and coughing for 3 days prior to hospitalization patient has a past medical history of COPD, CVA, hypertension, hypothyroidism, depression, diverticulitis, Parkinson's disease, COPD maintained on home O2 and nicotine dependence. Patient was positive COVID-19 chest x-ray performed in ER showing right upper lobe and right lower lobe pneumonia right-sided rib fracture. Patient was admitted to observation unit. Pulmonary and neurology services were consulted. On 03/06/2021 patient remains in the observation unit. Patient's alert and oriented 3 area patient remains on IV Solu-Medrol, IV Zosyn, vitamin C, zinc, vitamin D. She remains on high flow oxygen at 15 L. Pulmonary services are following. Patient was evaluated by neurology services due to increased falls and Parkinson's disease. No changes to Parkinson's medication. At this time patient denies chest pain. Patient denies nausea vomiting or diarrhea. Patient denies any urinary burning or frequency area potassium 3.3 replace per protocol. Morphine added for increase pain. On 03/07/2021 patient was seen and examined on the medical floor she is alert and oriented 3 in no apparent distress she feels better he has less cough and shortness of breath currently she is maintained on oxygen 10 L via high flow nasal cannula there is no fever or chills no headache or dizziness no chest pain no shortness of breath at rest she has shortness of breath with any activity there is no nausea or vomiting no abdominal pain no diarrhea and no urinary symptoms On 03/08/2021 patient is alert and oriented 3. Patient remains on 10 L high flow nasal cannula. Patient remains with cough and shortness breath. Patient denies nausea vomiting or diarrhea. Patient denies any urinary burning or frequency On 03/09/2021 patient was seen and examined on the medical floor she is alert and oriented 3 in no apparent distress, she is maintained on oxygen at 10 L via nasal cannula, she is still complaining of shortness of breath and occasional cough otherwise she denies any complaints she is tolerating diet 12 vital examination reveals a temperature of 97.8 pulse 59 respiration 18 blood pressure 99/54 pulse ox 92% on 10 L high flow cannula white blood count 4.0 hemoglobin 12.1 platelet count 326 sodium 136 potassium 4.2 chloride 103 CO2 26 BUN 22 creatinine 0.46 liver function is normal, patient is maintained on Symbicort inhaler albuterol inhaler subcu Lovenox IV Solu-Medrol and IV Zosyn On 03/10/2021 patient was seen and examined on the medical floor she is alert and oriented in no distress she is still requiring oxygen 10 L via high flow cannula she is still complaining of shortness of breath with any activity and occasional cough she is complaining of generalized weakness otherwise she denies any complaints there is no fever or chills no headache or dizziness no chest pain no nausea or vomiting no abdominal pain no diarrhea no blood in the stools no burning with urination no frequency or urgency and no hematuria she is still maintained on IV antibiotic IV steroids and subcu Lovenox patient is improving gradually. On 03/11/2021 patient was seen and examined on the medical floor she is alert and oriented 3 in no apparent distress she feels better she has less cough and shortness of breath currently she is maintained on oxygen 10 L via high flow nasal cannula there is no fever or chills no headache or dizziness no chest pain no shortness of breath at rest she has shortness of breath with any activity there is no nausea or vomiting no abdominal pain no diarrhea and no urinary symptoms Objective - Vital Signs Vital signs: Vital Signs Temp 97.1 F L 03/11/21 08:15 Pulse 91 03/11/21 08:15 Resp 18 03/11/21 08:15 BP 128/73 03/11/21 08:15 Pulse Ox 91 L 03/11/21 08:15 Intake & Output 03/10/21 03/11/21 03/11/21 18:59 06:59 18:59 Intake Total 160 100 Output Total 326 Balance -166 100 Intake: Intake, IV Titration 100 Amount Piperacillin-Tazobactam 3 100 .375 gm In Sodium Chloride 0.9% 100 ml @ 25 mls/hr IVPB Q8H [facility] Rx#: [id number] Oral 160 Output: Urine 325 Stool 1 Other: Voiding Method Bedpan Bedside Commode # Voids 2 4 # Bowel Movements 2 - Exam In general patient is alert and oriented 3 in no apparent distress Head normocephalic and atraumatic Neck supple no JVD no goiter no lymphadenopathy Lungs diminished bilaterally Heart regular rate and rhythm S1-S2, no rub or gallop Abdomen is soft nontender nondistended positive bowel sounds no hepatosplen omegaly Extremities no edema Neuro no gross focal deficit Tremor noted known Parkinson's disease - Labs CBC & Chem 7: 03/11/21 07:28 03/11/21 07:28 Labs: Abnormal Lab Results - Last 24 Hours (Table) 03/11/21 03/11/21 Range/Units 07:28 07:28 RDW 17.1 H (11.5-15.5) % Lymphocytes # 0.7 L (1.0-4.8) k/uL BUN 23 H (7-17) mg/dL Creatinine 0.42 L (0.52-1.04) mg/dL Glucose 112 H (74-99) mg/dL Alkaline Phosphatase 138 H (38-126) U/L Total Protein 5.0 L (6.3-8.2) g/dL Albumin 2.7 L (3.5-5.0) g/dL Assessment and Plan Assessment: 1. Acute on chronic hypoxic respiratory failure secondary to acute COVID-19 related pneumonia. Currently on IV Solu-Medrol and Zosyn 2. Acute exacerbation of COPD 3. Parkinson's disease. Patient maintained on levodopa 4. Chronic hypoxic respiratory failure. Maintain on home oxygen 2 L 5. Multiple falls and generalized weakness. And right-sided rib fracture Patient was evaluated by neurology services due to known history of Parkinson's disease no changes to medication 6. Ongoing nicotine dependence despite extensive education on the importance of smoking sensation 7. History of CVA 8. Essential hypertension 9. History of hypothyroidism 10. History of diverticular disease 11. History of depression 12. Hypokalemia this and replace per protocol 13. Bilateral knee pain. Patient was evaluated by orthopedic services. It is reported this is a chronic issue. Recommending physical therapy with no plans for surgical intervention DVT prophylaxis Lovenox. GI prophylaxis Protonix Sputum cultures pending. Pulmonary service is following. Patient is improving gradually Maintained on IV Solu-Medrol and IV Zosyn Maintained on vitamin C vitamin D and zinc Repeat labs ordered for a.m. PT OT consulted Social consult for possible placement
[2021-03-11] MEDS: ATORVASTATIN 10 MG TAB PO SCH (19:51)
[2021-03-12] MEDS: ACETAMINOPHEN TAB 325 MG TAB PO PRN (02:10)
[2021-03-12] MEDS: LEVOTHYROXINE 50 MCG TAB PO SCH (05:21)
[2021-03-12] MEDS: PIPERACILLIN-TAZOBACTAM 3.375 GM in SODIUM CHLORIDE 0.9% 100 ML IVPB SCH ×3 (05:21→20:17)
[2021-03-12] MEDS: CHOLECALCIFEROL 25 MCG (1000 IU) TABLET PO SCH (07:27)
[2021-03-12] MEDS: PRIMIDONE 50 MG TAB PO SCH ×3 (07:27→20:16)
[2021-03-12] MEDS: NYSTATIN 100,000 UNIT/ML SUSP 500,000 UNIT/5 ML CUP PO SCH ×4 (07:27→20:17)
[2021-03-12] MEDS: METOPROLOL TARTRATE 12.5 MG TAB PO SCH ×2 (07:27→20:16)
[2021-03-12] MEDS: ZINC SULFATE 220 MG CAP PO SCH (07:27)
[2021-03-12] MEDS: ASPIRIN 81 MG PO SCH (07:27)
[2021-03-12] MEDS: CYANOCOBALAMIN 500 MCG TAB PO SCH (07:27)
[2021-03-12] MEDS: CLOPIDOGREL 75 MG TAB PO SCH (07:27)
[2021-03-12] MEDS: ASCORBIC ACID 500 MG TAB PO SCH (07:27)
[2021-03-12] MEDS: BACLOFEN 10 MG TAB PO SCH ×3 (07:27→20:16)
[2021-03-12] MEDS: PANTOPRAZOLE 40 MG TABLET PO SCH (07:28)
[2021-03-12] MEDS: ENOXAPARIN 40 MG/0.4 ML SYRINGE SQ SCH (07:28)
[2021-03-12] MEDS: methylPREDNISolone SOD SUCCI 40 MG/ML 1 ML VIAL IV SCH ×2 (07:28→16:22)
[2021-03-12] MEDS: CARBIDOPA-LEVODOPA 25-100 MG 1 EACH TAB PO SCH ×3 (07:28→20:16)
[2021-03-12] MEDS: ALBUTEROL HFA INHALER INHALATION SCH ×4 (08:04→21:09)
[2021-03-12] MEDS: SYMBICORT 160-4.5 MCG INHALER INHALATION SCH ×2 (08:04→21:10)
[2021-03-12] MEDS: MORPHINE SULFATE 2 MG/ML SYRINGE IVP PRN (11:15)
[2021-03-12] MEDS: HYDROcodone/APAP 5-325MG 1 EACH TAB PO PRN ×2 (14:28→20:16)
--- NOTE | 2021-03-12 17:17 | P.PN ---
Subjective Progress Note Date: 03/12/21 Principal diagnosis: Weakness, fatigue, falling, cough, chest congestion 80-year-old female, who presents to the emergency department, brought in by EMS, on February 28. She apparently complained of weakness, and fatigue, with multiple falls. She apparently fell once in the bathroom, and then once subsequent to that while sitting on the bed. She apparently came into the emergency room complaining of diffuse aches and pains including right rib pain, and some issues with her right foot. The patient apparently had a stroke in 2004, and has left- sided weakness as a residual. The patient also has a history of chronic obstructive pulmonary disease, and sees our nurse practitioner in the office for that. She apparently did test positive for coronavirus, and hasn't been feeling well for at least 2 weeks. She has a history of COPD, stroke, hypothyroidism, diverticular disease, depression, hypertension, and nasal septal deviation. She does continue to smoke on a daily basis. Lab data includes a white count of 8.1, hemoglobin 11, hematocrit 31.9, platelet count 339,000. Sodium was 126, potassium 3, chloride 90, CO2 30, anion gap 6, BUN 20, creatinine 0.46. Brain CT only showed cerebral atrophy, nothing acute. Chest x-ray shows right upper lobe, and right lower lobe pneumonia, which is new. There is also a right-sided rib fracture. X-rays of the right and left knee showed some chronic changes, nothing acute and certainly no fractures. Hip x-rays were negative as well. Progress note dated 03/02/2021. 80-year-old female, that we saw in the emergency department yesterday. She came with complaints of weakness, fatigue, she had multiple falls. X-rays I believe are all negative, although apparently she didn't have a right-sided rib fracture. She also may have a right upper lobe and right lower lobe pneumonia, which may relate to aspiration. Currently, the patient appears to be much more alert and awake today. She is on nasal O2 at 4 L. She is getting saline at 75 mL an hour. White count was 3, hemoglobin 11.7, hematocrit 35.9, platelet count was 302,000. On 03/03/2021 patient seen in follow-up on medical floor, she is currently on 8 L of oxygen pulse ox of 91%, is very congested, her chest is rattly. She is weak, she states she is able to bring up some phlegm which is usually white or light yellow, trace chest x-ray shows patchy bilateral lung infiltrates. Today's labs have been noted, white blood cell count is 5.8, hemoglobin is 11.8, d-dimer is 2.67, sodium is improving, up to 134, rest of electrolytes were within normal limits, BUN is 11 creatinine 0.48. CRP is 49.6, LDH is 461. Pro- calcitonin level is 0.32. Patient continues on inhalers, she continues on Zosyn, IV hydration with 0.9 normal saline at a rate of 75 ML per hour, and Decadron 6 mg daily in addition to vitamins. On 03/12/2021 patient seen in follow-up on medical surgical floor, she appears quite frail and weak, she is resting in bed, she states her breathing has not worsened but she still remains congested, and patient has not been able to clear much of her phlegm. She is currently on 13 L of oxygen pulse ox is 96%, we dropped the FiO2 down to 10 L, and she will be rechecked in the 20-30 minutes for any worsening hypoxia, she is afebrile, hemodynamically stable, she remains on IV Solu-Medrol, and empiric Biaxin the form of Levaquin and Zosyn, Solu- Medrol 20 mg every 8 hours, she is on Symbicort, no new labs today, no new chest x-rays. Objective - Vital Signs Vital signs: Vital Signs Temp 97.6 F 03/12/21 14:00 Pulse 86 03/12/21 14:00 Resp 20 03/12/21 14:00 BP 108/67 03/12/21 14:00 Pulse Ox 96 03/12/21 16:01 Intake & Output 03/11/21 03/12/21 03/12/21 18:59 06:59 18:59 Intake Total 460 Output Total 1 1 Balance -1 459 Intake: Oral 460 Output: Urine 1 Stool 1 Other: Voiding Method External Catheter External Catheter External Catheter # Voids 3 - Exam GENERAL EXAM: Alert, very pleasant 80-year-old white female, and 13 L of oxygen a pulse ox of 91%, she is very frail, debilitated, weak looking, chronically ill-looking, recurrent congestive cough, sometimes productive comfortable in no apparent distress. HEAD: Normocephalic/atraumatic. EYES: Normal reaction of pupils, equal size. Conjunctiva pink, sclera white. NOSE: Clear with pink turbinates. THROAT: No erythema or exudates. NECK: No masses, no JVD, no thyroid enlargement, no adenopathy. CHEST: No chest wall deformity. Symmetrical expansion. LUNGS: Equal air entry with diffuse rhonchi, and wheezes CVS: Regular rate and rhythm, normal S1 and S2, no gallops, no murmurs, no rubs ABDOMEN: Soft, nontender. No hepatosplenomegaly, normal bowel sounds, no guarding or rigidity. EXTREMITIES: No clubbing, no edema, no cyanosis, 2+ pulses and upper and lower extremities. MUSCULOSKELETAL: Muscle strength and tone normal. SPINE: No scoliosis or deformity SKIN: No rashes CENTRAL NERVOUS SYSTEM: Alert and oriented -3. No focal deficits, tone is normal in all 4 extremities. PSYCHIATRIC: Alert and oriented -3. Appropriate affect. Intact judgment and insight. - Labs CBC & Chem 7: 03/11/21 07:28 03/11/21 07:28 Assessment and Plan Plan: Assessment: #1. Acute on chronic hypoxic respiratory failure related to acute COVID 19 related to pneumonia #2. Acute exacerbation of COPD #3. Chronic and ongoing history of tobacco use and nicotine addiction #4. She of CVA #5. Weakness and fatigue with multiple falls and right-sided rib fracture #6. History of hypertension #7. Hypothyroidism #8. History of diverticular disease #9. History of depression Plan: Continue current antibiotics, continue weaning FiO2 currently is down to 10 L Continue IV Solu-Medrol Maintain aspiration precautions Continue with prophylactic Lovenox Encourage the patient to sit up in a chair, deep breathe and cough, use incentive spirometer and clear her pulmonary secretions Follow-up labs including d-dimer inflammatory markers Follow-up chest x-ray We'll continue to follow I performed a history & physical examination of the patient and discussed their management with my nurse practitioner, Sharon Auguste. I reviewed the nurse practitioner's note and agree with the documented findings and plan of care. Lung sounds are positive for diffuse wheezes throughout the lung pathak. The findings and the impression was discussed with the patient. I attest to the documentation by the nurse practitioner. Time with Patient: Less than 30
--- NOTE | 2021-03-12 18:29 | P.PN ---
Subjective Progress Note Date: 03/12/21 I am assuming care of this patient as of 03/06/2021 at 8 AM. I was out of town and Dr. Aguilera was covering for me. HMP done by Dr. Camejo on 03/01/2021 Elicia Bradshaw, is an 80-year-old female admitted to [facility] through emergency room after presenting with symptoms of COVID- 19 pneumonia. Patient was having frequent falls at home along with chest pain and coughing for 3 days prior to hospitalization patient has a past medical history of COPD, CVA, hypertension, hypothyroidism, depression, diverticulitis, Parkinson's disease, COPD maintained on home O2 and nicotine dependence. Patient was positive COVID-19 chest x-ray performed in ER showing right upper lobe and right lower lobe pneumonia right-sided rib fracture. Patient was admitted to observation unit. Pulmonary and neurology services were consulted. On 03/06/2021 patient remains in the observation unit. Patient's alert and oriented 3 area patient remains on IV Solu-Medrol, IV Zosyn, vitamin C, zinc, vitamin D. She remains on high flow oxygen at 15 L. Pulmonary services are following. Patient was evaluated by neurology services due to increased falls and Parkinson's disease. No changes to Parkinson's medication. At this time patient denies chest pain. Patient denies nausea vomiting or diarrhea. Patient denies any urinary burning or frequency area potassium 3.3 replace per protocol. Morphine added for increase pain. On 03/07/2021 patient was seen and examined on the medical floor she is alert and oriented 3 in no apparent distress she feels better he has less cough and shortness of breath currently she is maintained on oxygen 10 L via high flow nasal cannula there is no fever or chills no headache or dizziness no chest pain no shortness of breath at rest she has shortness of breath with any activity there is no nausea or vomiting no abdominal pain no diarrhea and no urinary symptoms On 03/08/2021 patient is alert and oriented 3. Patient remains on 10 L high flow nasal cannula. Patient remains with cough and shortness breath. Patient denies nausea vomiting or diarrhea. Patient denies any urinary burning or frequency On 03/09/2021 patient was seen and examined on the medical floor she is alert and oriented 3 in no apparent distress, she is maintained on oxygen at 10 L via nasal cannula, she is still complaining of shortness of breath and occasional cough otherwise she denies any complaints she is tolerating diet 12 vital examination reveals a temperature of 97.8 pulse 59 respiration 18 blood pressure 99/54 pulse ox 92% on 10 L high flow cannula white blood count 4.0 hemoglobin 12.1 platelet count 326 sodium 136 potassium 4.2 chloride 103 CO2 26 BUN 22 creatinine 0.46 liver function is normal, patient is maintained on Symbicort inhaler albuterol inhaler subcu Lovenox IV Solu-Medrol and IV Zosyn On 03/10/2021 patient was seen and examined on the medical floor she is alert and oriented in no distress she is still requiring oxygen 10 L via high flow cannula she is still complaining of shortness of breath with any activity and occasional cough she is complaining of generalized weakness otherwise she denies any complaints there is no fever or chills no headache or dizziness no chest pain no nausea or vomiting no abdominal pain no diarrhea no blood in the stools no burning with urination no frequency or urgency and no hematuria she is still maintained on IV antibiotic IV steroids and subcu Lovenox patient is improving gradually. On 03/11/2021 patient was seen and examined on the medical floor she is alert and oriented 3 in no apparent distress she feels better she has less cough and shortness of breath currently she is maintained on oxygen 10 L via high flow nasal cannula there is no fever or chills no headache or dizziness no chest pain no shortness of breath at rest she has shortness of breath with any activity there is no nausea or vomiting no abdominal pain no diarrhea and no urinary symptoms On 03/12/2021 patient was seen and examined on the medical floor she is alert and oriented , she is still requiring oxygen 10 L via high flow cannula she is still complaining of shortness of breath with any activity and cough she is complaining of generalized weakness otherwise she denies any complaints there is no fever or chills no headache or dizziness no chest pain no nausea or vomiting no abdominal pain no diarrhea no blood in the stools no burning with urination no frequency or urgency and no hematuria she is still maintained on IV antibiotic IV steroids and subcu Lovenox patient is improving gradually. Objective - Vital Signs Vital signs: Vital Signs Temp 97.9 F 03/12/21 17:56 Pulse 63 03/12/21 17:56 Resp 20 03/12/21 17:56 BP 117/70 03/12/21 17:56 Pulse Ox 90 L 03/12/21 17:56 Intake & Output 03/11/21 03/12/21 03/12/21 18:59 06:59 18:59 Intake Total 460 Output Total 1 1 500 Balance -1 459 -500 Intake: Oral 460 Output: Urine 1 500 Stool 1 Other: Voiding Method External Catheter External Catheter External Catheter # Voids 3 - Exam In general patient is alert and oriented 3 in no apparent distress Head normocephalic and atraumatic Neck supple no JVD no goiter no lymphadenopathy Lungs diminished bilaterally Heart regular rate and rhythm S1-S2, no rub or gallop Abdomen is soft nontender nondistended positive bowel sounds no hepatosplenomegaly Extremities no edema no cyanosis or clubbing Neuro no gross focal deficit Tremor noted known Parkinson's disease - Labs CBC & Chem 7: 03/11/21 07:28 03/11/21 07:28 Assessment and Plan Assessment: 1. Acute on chronic hypoxic respiratory failure secondary to acute COVID-19 re lated pneumonia. Currently on IV Solu-Medrol and Zosyn 2. Acute exacerbation of COPD 3. Parkinson's disease. Patient maintained on levodopa 4. Chronic hypoxic respiratory failure. Maintain on home oxygen 2 L 5. Multiple falls and generalized weakness. And right-sided rib fracture Patient was evaluated by neurology services due to known history of Parkinson's disease no changes to medication 6. Ongoing nicotine dependence despite extensive education on the importance of smoking sensation 7. History of CVA 8. Essential hypertension 9. History of hypothyroidism 10. History of diverticular disease 11. History of depression 12. Hypokalemia this and replace per protocol 13. Bilateral knee pain. Patient was evaluated by orthopedic services. It is reported this is a chronic issue. Recommending physical therapy with no plans for surgical intervention DVT prophylaxis Lovenox. GI prophylaxis Protonix Sputum cultures pending. Pulmonary service is following. Patient is improving gradually Maintained on IV Solu-Medrol and IV Zosyn Maintained on vitamin C vitamin D and zinc Repeat labs ordered for a.m. PT OT consulted Social consult for possible placement
[2021-03-12] MEDS: ATORVASTATIN 10 MG TAB PO SCH (20:16)
[2021-03-13] MEDS: methylPREDNISolone SOD SUCCI 40 MG/ML 1 ML VIAL IV SCH ×3 (02:10→16:46)
[2021-03-13] MEDS: LEVOTHYROXINE 50 MCG TAB PO SCH (04:28)
[2021-03-13] MEDS: HYDROcodone/APAP 5-325MG 1 EACH TAB PO PRN ×3 (04:28→14:51)
[2021-03-13] MEDS: PIPERACILLIN-TAZOBACTAM 3.375 GM in SODIUM CHLORIDE 0.9% 100 ML IVPB SCH ×3 (04:28→22:21)
[2021-03-13] MEDS: ZINC SULFATE 220 MG CAP PO SCH (07:27)
[2021-03-13] MEDS: CYANOCOBALAMIN 500 MCG TAB PO SCH (07:27)
[2021-03-13] MEDS: ASCORBIC ACID 500 MG TAB PO SCH (07:27)
[2021-03-13] MEDS: PRIMIDONE 50 MG TAB PO SCH ×3 (07:27→22:27)
[2021-03-13] MEDS: CHOLECALCIFEROL 25 MCG (1000 IU) TABLET PO SCH (07:27)
[2021-03-13] MEDS: ASPIRIN 81 MG PO SCH (07:27)
[2021-03-13] MEDS: CARBIDOPA-LEVODOPA 25-100 MG 1 EACH TAB PO SCH ×3 (07:27→22:20)
[2021-03-13] MEDS: METOPROLOL TARTRATE 12.5 MG TAB PO SCH ×2 (07:27→22:20)
[2021-03-13] MEDS: PANTOPRAZOLE 40 MG TABLET PO SCH (07:27)
[2021-03-13] MEDS: CLOPIDOGREL 75 MG TAB PO SCH ×2 (07:27→12:13)
[2021-03-13] MEDS: ENOXAPARIN 40 MG/0.4 ML SYRINGE SQ SCH (07:28)
[2021-03-13] MEDS: NYSTATIN 100,000 UNIT/ML SUSP 500,000 UNIT/5 ML CUP PO SCH ×4 (07:28→22:21)
[2021-03-13] MEDS: BACLOFEN 10 MG TAB PO SCH ×3 (07:28→22:20)
--- NOTE | 2021-03-13 07:39 | XR ---
EXAMINATION TYPE: XR chest 1V portable DATE OF EXAM: 03/13/2021 CLINICAL HISTORY: Difficulty breathing and covid progress study. TECHNIQUE: Single AP portable frontal view of the chest is obtained. COMPARISON: Chest x-ray from 4 days earlier FINDINGS: Patient more rotated to the right making evaluation suboptimal. New moderate to large sized left-sided pneumothorax with right-sided rotation. Background chronic emphysematous and parenchymal changes with dense left basilar opacification. Patch y right basilar scarring and/or atelectasis. Cardiac silhouette size stable is more difficult to asse ss on current study. Osseous structures remain demineralized. Underlying scoliotic curvature position ing noted. IMPRESSION: New fairly large left-sided pneumothorax estimated near 60%. [id number] left basil ar pleural fluid collection and associated left lung atelectasis and/or infiltrate. Critical results communicated to patient's nurse via telephone at time of dictation. Also perfectserv e performed to covering Doctor. A [place] level critical message alert has been initiated for Kyleigh Garcia MD via the [employer] Critical Results System on 03/13/2021 7:36 AM. This message alert has been sent to Kyleigh Garcia MD via the preferences provided by the clinician for the receipt of Radiology Critical Findings. Message ID [id number].
[2021-03-13] MEDS ORDERED: LIDOCAINE 1% INJ 10MG/ML (20 ML MDV) ONE (07:57)
[2021-03-13 08:36] LABS: Glucose,Whole Blood 162 mg/dL (75-99)
[2021-03-13] MEDS ORDERED: MORPHINE SULFATE 2 MG/ML SYRINGE ONE (08:39)
--- NOTE | 2021-03-13 09:08 | XR ---
EXAMINATION TYPE: XR chest 1V portable DATE OF EXAM: 03/13/2021 COMPARISON: Chest x-ray dated 03/13/2021, February 28, 2021 HISTORY: Status post chest tube placement TECHNIQUE: Single frontal view of the chest is obtained. FINDINGS: There has been interval placement of a thoracic vent tube which is overlying the left uppe r lobe. There is a large hydropneumothorax. Patient is rotated. There are rib fractures noted on the right at the sixth seventh and eighth ribs posteriorly. Subcutaneous emphysema is present. Heart is o bscured. Aorta is dense. There is a spinal curvature. IMPRESSION: Interval chest tube placement. There are multiple right-sided rib fractures as noted on previous chest x-ray February 28, 2021
[2021-03-13] MEDS: SYMBICORT 160-4.5 MCG INHALER INHALATION SCH ×2 (09:11→20:28)
[2021-03-13] MEDS: ALBUTEROL HFA INHALER INHALATION SCH ×5 (09:11→20:28)
--- NOTE | 2021-03-13 09:11 | XR ---
EXAMINATION TYPE: XR chest 1V portable DATE OF EXAM: 03/13/2021 COMPARISON: Right chest x-ray same dated earlier time HISTORY: Chest tube insertion TECHNIQUE: Single frontal view of the chest is obtained. FINDINGS: There is been interval removal of the thoracic vent, placement of a large-bore chest tube which is coiled towards the left upper hemithorax. The abnormal density in the left hemithorax has im proved, there is persistent left apical pneumothorax. Posterior rib fractures are again noted on the right. Cardiac mediastinal silhouette within normal limits. Aorta is dense. Persistent rounded density noted in the right upper lobe, there is apical pleural scarring on the right. IMPRESSION: Interval chest tube placement and improved aeration in the left lung, there is persisten t left apical pneumothorax
--- NOTE | 2021-03-13 09:11 | P.PN ---
Subjective Progress Note Date: 03/13/21 Principal diagnosis: Weakness, fatigue, falling, cough, chest congestion 80-year-old female, who presents to the emergency department, brought in by EMS, on February 28. She apparently complained of weakness, and fatigue, with multiple falls. She apparently fell once in the bathroom, and then once subsequent to that while sitting on the bed. She apparently came into the emergency room complaining of diffuse aches and pains including right rib pain, and some issues with her right foot. The patient apparently had a stroke in 2004, and has left- sided weakness as a residual. The patient also has a history of chronic obstructive pulmonary disease, and sees our nurse practitioner in the office for that. She apparently did test positive for coronavirus, and hasn't been feeling well for at least 2 weeks. She has a history of COPD, stroke, hypothyroidism, diverticular disease, depression, hypertension, and nasal septal deviation. She does continue to smoke on a daily basis. Lab data includes a white count of 8.1, hemoglobin 11, hematocrit 31.9, platelet count 339,000. Sodium was 126, potassium 3, chloride 90, CO2 30, anion gap 6, BUN 20, creatinine 0.46. Brain CT only showed cerebral atrophy, nothing acute. Chest x-ray shows right upper lobe, and right lower lobe pneumonia, which is new. There is also a right-sided rib fracture. X-rays of the right and left knee showed some chronic changes, nothing acute and certainly no fractures. Hip x-rays were negative as well. Progress note dated 03/02/2021. 80-year-old female, that we saw in the emergency department yesterday. She came with complaints of weakness, fatigue, she had multiple falls. X-rays I believe are all negative, although apparently she didn't have a right-sided rib fracture. She also may have a right upper lobe and right lower lobe pneumonia, which may relate to aspiration. Currently, the patient appears to be much more alert and awake today. She is on nasal O2 at 4 L. She is getting saline at 75 mL an hour. White count was 3, hemoglobin 11.7, hematocrit 35.9, platelet count was 302,000. On 03/03/2021 patient seen in follow-up on medical floor, she is currently on 8 L of oxygen pulse ox of 91%, is very congested, her chest is rattly. She is weak, she states she is able to bring up some phlegm which is usually white or light yellow, trace chest x-ray shows patchy bilateral lung infiltrates. Today's labs have been noted, white blood cell count is 5.8, hemoglobin is 11.8, d-dimer is 2.67, sodium is improving, up to 134, rest of electrolytes were within normal limits, BUN is 11 creatinine 0.48. CRP is 49.6, LDH is 461. Pro- calcitonin level is 0.32. Patient continues on inhalers, she continues on Zosyn, IV hydration with 0.9 normal saline at a rate of 75 ML per hour, and Decadron 6 mg daily in addition to vitamins. On 03/12/2021 patient seen in follow-up on medical surgical floor, she appears quite frail and weak, she is resting in bed, she states her breathing has not worsened but she still remains congested, and patient has not been able to clear much of her phlegm. She is currently on 13 L of oxygen pulse ox is 96%, we dropped the FiO2 down to 10 L, and she will be rechecked in the 20-30 minutes for any worsening hypoxia, she is afebrile, hemodynamically stable, she remains on IV Solu-Medrol, and empiric abt the form of Levaquin and Zosyn, Solu-Medrol 20 mg every 8 hours, she is on Symbicort, no new labs today, no new chest x- rays. On 03/13/2021 received a phone call from our radiology to notify of a large left-sided pneumothorax related to be at 60%, and small to moderate left basilar pleural fluid collection and associated left lung atelectasis. As such emergent transfer to the intensive care was ordered, patient is on 12 L of oxygen, she is desaturating, she is increasingly more short of breath, tachypneic, and #13 thoravent was emergently placed left upper anterior chest and initially there was bubbling in the Pleur-evac however the lung failed to reexpand, and patient was transferred to the intensive care unit where the pleural VAC was removed and #28 [place] chest tube was placed in the left chest, and there was a large amount of dark blood that drained out of the chest tube, appropximmately 500 mL. Patient had been on prophylactic doses of Lovenox at 40 mg once daily for the last several days, repeat blood work today is pending, status post CBC is ordered and pending at this time, patient has no running IVs running at this point, current blood pressure is 100/56 with a map of 75, she is in sinus mechanism with a rate of 80 BPM, her current saturation is 85% on 15 L high flow. And patient will be placed on BiPAP support with pressures of 12/6 and FiO2 100%. Repeat chest x-ray is pending post insertion of left-sided chest tube. Patient is awake, she is following commands, she is having a lot of discomfort in her left chest post insertion of 2 chest tubes, pain medications were administered in the form of morphine, and patient was locally anesthetized using the 1% lidocaine to insertion of chest tubes. We reached out to the patient's son, Clarence, next of kin to notify him of patient's deteriorating clinical condition and notify him of the events of this morning and transferred to the intensive care unit. Patient is quite frail, debilitated at baseline, with multiple comorbidities, and advanced COPD on home oxygen. Patient's son made a clear that no aggressive heroic resuscitation is desired and neither is life-support. He would like to continue supportively treating the patientat this time. And the visitation will be arranged for the patient's son and her daughter to come and see the patient sometime today according to the hospital visitation policy. Objective - Vital Signs Vital signs: Vital Signs Temp 96.7 F L 03/13/21 05:44 Pulse 90 03/13/21 05:44 Resp 18 03/13/21 05:44 BP 126/77 03/13/21 05:44 Pulse Ox 94 L 03/13/21 05:44 Intake & Output 03/12/21 03/13/21 03/13/21 18:59 06:59 18:59 Intake Total 300 800 Output Total 500 301 Balance -200 499 Intake: Intake, IV Titration 100 Amount Piperacillin-Tazobactam 3 100 .375 gm In Sodium Chloride 0.9% 100 ml @ 25 mls/hr IVPB Q8H [facility] Rx#: [id number] Oral 300 700 Output: Urine 500 300 Stool 1 Other: Voiding Method External Catheter External Catheter - Exam GENERAL EXAM: Weight, in moderate to severe amount of distress from shortness of breath related to large left-sided pneumothorax and recent placement of left- sided chest tube very pleasant 80-year-old white female, currently on 15 L of oxygen per high flow nasal cannula, and pulse ox is around 85%, BiPAP support is being placed on the patient, she is very frail, debilitated, weak looking, chronically ill-looking, recurrent congestive cough, sometimes productive comfortable in no apparent distress. HEAD: Normocephalic/atraumatic. EYES: Normal reaction of pupils, equal size. Conjunctiva pink, sclera white. NOSE: Clear with pink turbinates. THROAT: No erythema or exudates. NECK: No masses, no JVD, no thyroid enlargement, no adenopathy. CHEST: No chest wall deformity. Symmetrical expansion. Left-sided chest tube in place, recently placed to suction, and patient had a large left-sided Pneumothorax and hemothorax, and there is 500 mL of dark blood in the Pleur-evac and occasional air leak LUNGS: Equal air entry with diffuse rhonchi, and wheezes CVS: Regular rate and rhythm, normal S1 and S2, no gallops, no murmurs, no rubs ABDOMEN: Soft, nontender. No hepatosplenomegaly, normal bowel sounds, no guarding or rigidity. EXTREMITIES: No clubbing, no edema, no cyanosis, 2+ pulses and upper and lower extremities. MUSCULOSKELETAL: Muscle strength and tone normal. SPINE: No scoliosis or deformity SKIN: No rashes CENTRAL NERVOUS SYSTEM: Alert and oriented -3. No focal deficits, tone is normal in all 4 extremities. PSYCHIATRIC: Alert and oriented -3. Appropriate affect. Intact judgment and insight. - Labs CBC & Chem 7: 03/11/21 07:28 03/11/21 07:28 Labs: Abnormal Lab Results - Last 24 Hours (Table) 03/13/21 03/13/21 Range/Units 06:43 08:32 D-Dimer 1.74 H (<0.60) mg/L FEU POC Glucose (mg/dL) 162 H (75-99) mg/dL Assessment and Plan Plan: Assessment: #1. Large left-sided hemopneumothorax, s/p placement of #13 Thoravent, in the left upper chest this morning and lung failed to reexpand and subsequently #28 [place] chest tube was placed in the left pleural space with evacuation of a large hemothorax on the 500 mL of dark blood on 03/13/2021. #2. Acute on chronic hypoxic respiratory failure related to acute COVID 19 related to pneumonia #3. Acute exacerbation of COPD #4. Chronic and ongoing history of tobacco use and nicotine addiction #5. CVA #6. Weakness and fatigue with multiple falls and right-sided rib fracture #7. History of hypertension #8. Hypothyroidism #9. History of diverticular disease #10. History of depression Plan: Left sided chest tube has been placed with evacuation of a large hemothorax, Cardiothoracic surgery has been consulted Patient has been transferred to the intensive care unit Stat CBC CMP, INR, Lovenox, transfuse with 2 units of packed red blood cells, type and cross Continue IV steroids, continue current antibiotics, lactic acid, basic labs BiPAP support at pressures of 12 6 and FiO2 100% and titrate FiO2 to keep O2 sat at or above 90% Prognosis is poor and guarded and the family has been updated on it and the deci liza was made to make the patient is DO NOT RESUSCITATE but continue supportive measures Arrange a family visit today Continue to closely follow in the ICU I performed a history & physical examination of the patient and discussed their management with my nurse practitioner, Sharon Auguste. I reviewed the nurse practitioner's note and agree with the documented findings and plan of care. Lung sounds are positive for diffuse wheezes throughout the lung pathak. The findings and the impression was discussed with the patient. I attest to the documentation by the nurse practitioner. Time with Patient: Greater than 30
[2021-03-13 09:26] LABS: Anisocytosis Slight; Basophils % (A) 0 %; Eosinophils % (A) 0 %; Hypochromasia Slight; Lymphocytes # (A) 0.4 k/uL (1.0-4.8); Lymphocytes % (A) 6 %; MCH 29.4 pg (25.0-35.0); MCHC 32.8 g/dL (31.0-37.0); MCV 89.4 fL (80.0-100.0); Mean Platelet Volume 7.7; Monocytes # (A) 0.2 k/uL (0-1.0); Monocytes % (A) 4 %; Neutrophils # (A) 5.5 k/uL (1.3-7.7); Neutrophils % (A) 89 %; Platelet Count 365 k/uL (150-450); RBC 2.91 m/uL (3.80-5.40); RDW 17.3 % (11.5-15.5); WBC 6.2 k/uL (3.8-10.6)
[2021-03-13 09:43] LABS: HGB 8.5 gm/dL (11.4-16.0)
[2021-03-13 09:47] LABS: ALT <6 U/L (4-34); AST 16 U/L (14-36); African American GFR (CKD) >90 (>60 ml/min/1.73 sqM); Albumin 2.4 g/dL (3.5-5.0); Alkaline Phosphatase 128 U/L (38-126); Anion Gap 2 mmol/L; Blood Urea Nitrogen 34 mg/dL (7-17); Calcium 8.6 mg/dL (8.4-10.2); Carbon Dioxide 33 mmol/L (22-30); Chloride 108 mmol/L (98-107); Globulin 2.3 g/dL; Glucose 171 mg/dL (74-99); Non-African American GFR(CKD) >90 (>60 ml/min/1.73 sqM); Potassium 4.3 mmol/L (3.5-5.1); Sodium 143 mmol/L (137-145); Total Bilirubin 0.6 mg/dL (0.2-1.3); Total Protein 4.7 g/dL (6.3-8.2)
[2021-03-13 09:51] LABS: ABG HCO3 31 mmol/L (21-25); ABG Oxygen Saturation 98.2 % (94-97); ABG PCO2 55 mmHg (35-45); ABG PH 7.37 (7.35-7.45); ABG PO2 113 mmHg (83-108); ABG TCO2 33 mmol/L (19-24)
[2021-03-13 09:53] LABS: Allen Test Performed? no
[2021-03-13 09:57] LABS: Prothrombin Time 10.9 sec (9.0-12.0)
[2021-03-13 11:44] LABS: African American GFR (CKD) 105.2 (60.0-200.0); Anion Gap 5.4 mmol/L (4.00-12.00); C Reactive Protein 3.8 mg/dL (0.0-0.8); Carbon Dioxide 31.6 mmol/L (21.6-31.8); Non-African American GFR(CKD) 90.8 (60.0-200.0); Potassium 4.8 mmol/L (3.5-5.5)
[2021-03-13] MEDS: HYDROmorphone 1 MG/ML 1 ML SYRINGE IVP PRN ×2 (13:01→22:37)
--- NOTE | 2021-03-13 13:42 | CDI ---
Documentation Clarification Form Date: 03/13/2021 01:31:25 PM From: Yaz Carlson RN, CCDS Admit Date: 02/28/2021 10:23:00 PM Patient Name: Elicia Zurita Visit Number: [id number] ATTENTION: The Clinical Documentation Specialists (CDI) and [facility] Coding Staff appreciate your assistance in clarifying documentation. Please respond to the clarification below the line at the bottom and electronically sign. The CDI & [facility] Coding staff will review the response and follow-up if needed. Please note: Queries are made part of the Legal Health Record. If you have any questions, please contact the author of this message via ITS. Dr. Santos Camejo Mild to Moderate Malnutrition is documented in the 03/01-03/05 H&P and attending progress notes by Dr. Camejo and requires a definitive diagnosis Additional clarification regarding the severity of malnutrition is requested. History/Risk Factors: COPD, CVA, HTN, Hypothyroid, diverticular disease, depression, acute hypoxic failure with Covid 19 pneumonia with acute COPD exacerbation Clinical Indicators: 03/01-03/05 H&P and Attending Progress Notes (Dr. Camejo): "[id number] protein calorie malnutrition" 03/05-03/07 Pulmonary progress notes: "Her current body mass index is 16.5 and she is quite cachectic and frail and has significant loss in total body protein mass." Current BMI: 16.9 Insufficient energy intake: 25-50% of Heart healthy Diet Weight Loss: non documented Loss of muscle mass: thin, frail, cachectic Fluid accumulation: bilateral peripheral edema Decreased hand energy and conservation technician strength: generalized weakness Treatment: Dietary Consult: Completed 03/01 Supplements: Magic Cups BID Lab monitoring: AM daily Please clarify the type of malnutrition, if known: [ ] Mild Protein-Calorie Malnutrition [ ] Moderate Protein-Calorie Malnutrition [ ] Other condition, please specify [ ] Unable to Determine (Template Last Revised: January 2021) Unable to Determine MTDD
--- NOTE | 2021-03-13 13:55 | XR ---
EXAMINATION TYPE: XR shoulder limited LT DATE OF EXAM: 03/13/2021 CLINICAL HISTORY: Left-sided chest tube and chest and shoulder pain, fall before admission. TECHNIQUE: Single portable supine view of the left shoulder is obtained.. COMPARISON: Chest x-ray earlier today.. FINDINGS: Osseous structures are demineralized. No acute displaced fracture is evident. There is part ial visualization of a left apical chest tube and tiny apical pneumothorax, this is smaller improved in size from chest x-ray this morning. Note is made of new tiny right apical pneumothorax seen on thi s study not clearly seen on x-ray earlier today. Consider repeat upright or semiupright chest x-ray t o further evaluate. IMPRESSION: As above. A [place] level critical message alert has been initiated for Jj Esquivel MD via the [employer] Critical Results System on 03/13/2021 1:52 PM. This message alert has been sent to Jj Esquivel MD via the preferences provided by the clinician for the receipt of Radiology Critical Findings. Message ID [id number].
--- NOTE | 2021-03-13 17:51 | OP ---
OPERATIVE REPORT OPERATIVE REPORT: Placement of a left-sided Thora-Vent. PREOPERATIVE DIAGNOSIS: Hydropneumothorax. POSTOPERATIVE DIAGNOSIS: Hemopneumothorax. PROCEDURE: The patient was placed in a sitting upright position, the area below the left clavicle was prepared in a sterile fashion and drapes were applied. The area at the level of the third intercostal space and midclavicular line was locally anesthetized and a small tiny incision was made. In that incision, a size 13-Amharic Thora-Vent was used with a trocar, inserted and advanced into the epidural space. It was connected to Pleur-Evac. It was functioning fine initially, then we noticed some blood in the line and the Thora- Vent was not noticing to function anymore. I tried to unclog the line but it did not seem to improve much. Later on, we had to remove the Thora-Vent, and placed a chest tube. At any rate, no complications from the procedure. MMODL / IJN: [id number] /
--- NOTE | 2021-03-13 17:57 | OP ---
OPERATIVE REPORT OPERATIVE PROCEDURE: Placement of left-sided 28 argyle chest tube/left-sided tube thoracostomy. PREOPERATIVE DIAGNOSIS: Left-sided hemopneumothorax, quite large. POSTOPERATIVE DIAGNOSIS: Left-sided hemopneumothorax, quite large. ANESTHESIA USED: 10 mL of 1% lidocaine. PROCEDURE: The patient was placed in a supine position. The area at the level of the 5th intercostal space and the left axillary line was prepared in a sterile fashion. The drapes were applied. A small tiny incision, a size 1.0 cm incision was made at that site. The fascia was dissected with forceps and with the index finger, until the pleural space was entered. As soon as the pleural space was entered there was evidence of dark blood and air coming out through the tube. The tube was placed pointing apically, and it was secured using 2.0 Ethibond sutures. The tube was connected to a Pleur-Evac. There was significant improvement noted on the chest x-ray post placement of the chest tube, and the left-sided Thora-Vent tube was removed. Again, no complications. Procedure was well-tolerated. MMODL / IJN: [id number] /
--- NOTE | 2021-03-13 18:00 | OP ---
OPERATIVE REPORT OPERATIVE PROCEDURE: Placement of a right femoral triple-lumen catheter. PREOPERATIVE DIAGNOSES: COVID-19 pneumonitis, hypoxic respiratory failure, COPD, and left-sided hemopneumothorax, spontaneous. PROCEDURE: Patient was placed in a supine position, the area of the right groin was prepared in a sterile fashion and drapes were applied. The area of the right groin was prepared in a sterile fashion and drapes applied. The area was locally anesthetized with lidocaine. The right femoral vein was easily cannulated, a guide was placed, the area around the guidewire was dilated, a triple-lumen catheter was inserted over the guidewire, and the guidewire was removed. Good blood flow noted in the three different ports of the triple-lumen catheter. The line was secured using 3.0 silk sutures. No complications. MMODL / IJN: [id number] /
--- NOTE | 2021-03-13 18:00 | OP ---
OPERATIVE REPORT OPERATIVE REPORT: Placement of right brachial arterial line. PREOPERATIVE DIAGNOSIS: Hypoxic respiratory failure, COVID-19 pneumonitis, left-sided spontaneous hydropneumothorax and COPD. PROCEDURE: The patient was placed in a supine position. The right brachial region was prepared in a sterile fashion and drapes were applied. The right brachial artery was palpated, cannulated, and a guidewire was placed. A Cook catheter was inserted over the guidewire, and the guidewire was removed. Good blood flow, good waveform noted. No evidence of any complications. The line was secured using 3.0 silk sutures. MMODL / IJN: [id number] /
--- NOTE | 2021-03-13 18:41 | P.PN ---
Subjective Progress Note Date: 03/13/21 I am assuming care of this patient as of 03/06/2021 at 8 AM. I was out of town and Dr. Aguilera was covering for me. HMP done by Dr. Camejo on 03/01/2021 Elicia Bradshaw, is an 80-year-old female admitted to [facility] through emergency room after presenting with symptoms of COVID- 19 pneumonia. Patient was having frequent falls at home along with chest pain and coughing for 3 days prior to hospitalization patient has a past medical history of COPD, CVA, hypertension, hypothyroidism, depression, diverticulitis, Parkinson's disease, COPD maintained on home O2 and nicotine dependence. Patient was positive COVID-19 chest x-ray performed in ER showing right upper lobe and right lower lobe pneumonia right-sided rib fracture. Patient was admitted to observation unit. Pulmonary and neurology services were consulted. On 03/06/2021 patient remains in the observation unit. Patient's alert and oriented 3 area patient remains on IV Solu-Medrol, IV Zosyn, vitamin C, zinc, vitamin D. She remains on high flow oxygen at 15 L. Pulmonary services are following. Patient was evaluated by neurology services due to increased falls and Parkinson's disease. No changes to Parkinson's medication. At this time patient denies chest pain. Patient denies nausea vomiting or diarrhea. Patient denies any urinary burning or frequency area potassium 3.3 replace per protocol. Morphine added for increase pain. On 03/07/2021 patient was seen and examined on the medical floor she is alert and oriented 3 in no apparent distress she feels better he has less cough and shortness of breath currently she is maintained on oxygen 10 L via high flow nasal cannula there is no fever or chills no headache or dizziness no chest pain no shortness of breath at rest she has shortness of breath with any activity there is no nausea or vomiting no abdominal pain no diarrhea and no urinary symptoms On 03/08/2021 patient is alert and oriented 3. Patient remains on 10 L high flow nasal cannula. Patient remains with cough and shortness breath. Patient denies nausea vomiting or diarrhea. Patient denies any urinary burning or frequency On 03/09/2021 patient was seen and examined on the medical floor she is alert and oriented 3 in no apparent distress, she is maintained on oxygen at 10 L via nasal cannula, she is still complaining of shortness of breath and occasional cough otherwise she denies any complaints she is tolerating diet 12 vital examination reveals a temperature of 97.8 pulse 59 respiration 18 blood pressure 99/54 pulse ox 92% on 10 L high flow cannula white blood count 4.0 hemoglobin 12.1 platelet count 326 sodium 136 potassium 4.2 chloride 103 CO2 26 BUN 22 creatinine 0.46 liver function is normal, patient is maintained on Symbicort inhaler albuterol inhaler subcu Lovenox IV Solu-Medrol and IV Zosyn On 03/10/2021 patient was seen and examined on the medical floor she is alert and oriented in no distress she is still requiring oxygen 10 L via high flow cannula she is still complaining of shortness of breath with any activity and occasional cough she is complaining of generalized weakness otherwise she denies any complaints there is no fever or chills no headache or dizziness no chest pain no nausea or vomiting no abdominal pain no diarrhea no blood in the stools no burning with urination no frequency or urgency and no hematuria she is still maintained on IV antibiotic IV steroids and subcu Lovenox patient is improving gradually. On 03/11/2021 patient was seen and examined on the medical floor she is alert and oriented 3 in no apparent distress she feels better she has less cough and shortness of breath currently she is maintained on oxygen 10 L via high flow nasal cannula there is no fever or chills no headache or dizziness no chest pain no shortness of breath at rest she has shortness of breath with any activity there is no nausea or vomiting no abdominal pain no diarrhea and no urinary symptoms On 03/12/2021 patient was seen and examined on the medical floor she is alert and oriented , she is still requiring oxygen 10 L via high flow cannula she is still complaining of shortness of breath with any activity and cough she is complaining of generalized weakness otherwise she denies any complaints there is no fever or chills no headache or dizziness no chest pain no nausea or vomiting no abdominal pain no diarrhea no blood in the stools no burning with urination no frequency or urgency and no hematuria she is still maintained on IV antibiotic IV steroids and subcu Lovenox patient is improving gradually. On 03/13/2021 patient was seen and examined in the ICU is alert responsive in no apparent distress she is maintained on BiPAP, earlier this morning patient had a chest x-ray that revealed a large left sided pneumothorax patient was transferred to ICU she underwent left sided chest tube placement. Currently patient is awake she is following command she is maintained on BiPAP blood pressure is 140/55 heart rate 71 respiration 18 temperature 97.4 arterial blood gas reveals a pH of 7.37 pCO2 55 PO2 113 White blood count 6.2 hemoglobin 8.5 platelet count 365 Objective - Vital Signs Vital signs: Vital Signs Temp 97.6 F 03/13/21 15:05 Pulse 73 03/13/21 16:00 Resp 24 03/13/21 16:00 BP 131/62 03/13/21 16:00 Pulse Ox 93 L 03/13/21 16:00 Intake & Output 03/12/21 03/13/21 03/13/21 18:59 06:59 18:59 Intake Total 307 754 7266 Output Total 500 301 80 Balance -967 967 3893 Weight 48.988 kg Intake: IV 921 Bolus 400 Piperacillin-Tazobactam 3 100 .375 gm In Sodium Chloride 0.9% 100 ml @ 25 mls/hr IVPB Q8H [facility] Rx#: [id number] Pressure bag 21 Sodium Chloride 0.9% 1, 400 000 ml @ 75 mls/hr IV . [id number] [facility] Rx#:[id number] Intake, IV Titration 100 Amount Piperacillin-Tazobactam 3 100 .375 gm In Sodium Chloride 0.9% 100 ml @ 25 mls/hr IVPB Q8H [facility] Rx#: [id number] Oral 300 700 Blood Product 310 Rc As-1 Unit 310 [id number] Output: Urine 500 300 80 Stool 1 Other: Voiding Method External Catheter External Catheter Indwelling Catheter # Voids 1 ABP, PAP, CO, CI - Last Documented Arterial Blood Pressure 125/53 - Exam In general patient is alert and oriented 3 in no apparent distress Head normocephalic and atraumatic Neck supple no JVD no goiter no lymphadenopathy Lungs diminished bilaterally Heart regular rate and rhythm S1-S2, no rub or gallop Abdomen is soft nontender nondistended positive bowel sounds no hepatosplenomegaly Extremities no edema no cyanosis or clubbing Neuro no gross focal deficit Tremor noted known Parkinson's disease - Labs CBC & Chem 7: 03/13/21 09:08 03/13/21 09:08 Labs: Abnormal Lab Results - Last 24 Hours (Table) 04/21/21 04/21/21 04/21/21 Range/Units 06:43 06:43 08:32 RBC (3.80-5.40) m/uL Hgb (11.4-16.0) gm/dL Hct (34.0-46.0) % RDW (11.5-15.5) % Lymphocytes # (1.0-4.8) k/uL D-Dimer 1.74 H (<0.60) mg/L FEU ABG pCO2 (35-45) mmHg ABG pO2 (83-108) mmHg ABG HCO3 (21-25) mmol/L ABG Total CO2 (19-24) mmol/L ABG O2 Saturation (94-97) % Sodium 146 H (135-145) mmol/L Chloride (98-107) mmol/L Carbon Dioxide (22-30) mmol/L BUN 33.0 H (9.0-27.0) mg/dL Creatinine 0.5 L (0.6-1.5) mg/dL BUN/Creatinine Ratio 66.00 H (12.00-20.00) Ratio Glucose 155 H (70-110) mg/dL POC Glucose (mg/dL) 162 H (75-99) mg/dL Alkaline Phosphatase (38-126) U/L C-Reactive Protein 3.8 H (0.0-0.8) mg/dL Total Protein (6.3-8.2) g/dL Albumin (3.5-5.0) g/dL Crossmatch 03/13/21 03/13/21 03/13/21 Range/Units 09:08 09:08 09:08 RBC 2.91 L (3.80-5.40) m/uL Hgb 8.5 L D (11.4-16.0) gm/dL Hct 26.0 L (34.0-46.0) % RDW 17.3 H (11.5-15.5) % Lymphocytes # 0.4 L (1.0-4.8) k/uL D-Dimer (<0.60) mg/L FEU ABG pCO2 (35-45) mmHg ABG pO2 (83-108) mmHg ABG HCO3 (21-25) mmol/L ABG Total CO2 (19-24) mmol/L ABG O2 Saturation (94-97) % Sodium (135-145) mmol/L Chloride 108 H (98-107) mmol/L Carbon Dioxide 33 H (22-30) mmol/L BUN 34 H (9.0-27.0) mg/dL Creatinine 0.44 L (0.6-1.5) mg/dL BUN/Creatinine Ratio (12.00-20.00) Ratio Glucose 171 H (70-110) mg/dL POC Glucose (mg/dL) (75-99) mg/dL Alkaline Phosphatase 128 H (38-126) U/L C-Reactive Protein (0.0-0.8) mg/dL Total Protein 4.7 L (6.3-8.2) g/dL Albumin 2.4 L (3.5-5.0) g/dL Crossmatch See Detail 03/13/21 Range/Units 09:49 RBC (3.80-5.40) m/uL Hgb (11.4-16.0) gm/dL Hct (34.0-46.0) % RDW (11.5-15.5) % Lymphocytes # (1.0-4.8) k/uL D-Dimer (<0.60) mg/L FEU ABG pCO2 55 H (35-45) mmHg ABG pO2 113 H (83-108) mmHg ABG HCO3 31 H (21-25) mmol/L ABG Total CO2 33 H (19-24) mmol/L ABG O2 Saturation 98.2 H (94-97) % Sodium (135-145) mmol/L Chloride (98-107) mmol/L Carbon Dioxide (22-30) mmol/L BUN (9.0-27.0) mg/dL Creatinine (0.6-1.5) mg/dL BUN/Creatinine Ratio (12.00-20.00) Ratio Glucose (70-110) mg/dL POC Glucose (mg/dL) (75-99) mg/dL Alkaline Phosphatase (38-126) U/L C-Reactive Protein (0.0-0.8) mg/dL Total Protein (6.3-8.2) g/dL Albumin (3.5-5.0) g/dL Crossmatch Assessment and Plan Assessment: 1. Acute on chronic hypoxic respiratory failure secondary to acute COVID-19 related pneumonia. Currently on IV Solu-Medrol and Zosyn 2. Acute exacerbation of COPD 3. Parkinson's disease. Patient maintained on levodopa 4. Chronic hypoxic respiratory failure. Maintain on home oxygen 2 L 5. Multiple falls and generalized weakness. And right-sided rib fracture Patient was evaluated by neurology services due to known history of Parkinson's disease no changes to medication 6. Ongoing nicotine dependence despite extensive education on the importance of smoking sensation 7. History of CVA 8. Essential hypertension 9. History of hypothyroidism 10. History of diverticular disease 11. History of depression 12. Hypokalemia this and replace per protocol 13. Left sided pneumothorax status post left chest tube placement and transfer to ICU currently patient is maintained on BiPAP 14. Bilateral knee pain. Patient was evaluated by orthopedic services. It is reported this is a chronic issue. Recommending physical therapy with no plans for surgical intervention DVT prophylaxis Lovenox. GI prophylaxis Protonix Sputum cultures pending. Pulmonary service is following. Patient is improving gradually Maintained on IV Solu-Medrol and IV Zosyn Maintained on vitamin C vitamin D and zinc Repeat labs ordered for a.m. PT OT consulted Social consult for possible placement
[2021-03-13] MEDS: ATORVASTATIN 10 MG TAB PO SCH (22:20)
[2021-03-14] MEDS: methylPREDNISolone SOD SUCCI 40 MG/ML 1 ML VIAL IV SCH ×4 (00:08→23:50)
[2021-03-14] MEDS: HYDROmorphone 1 MG/ML 1 ML SYRINGE IVP PRN ×4 (02:11→21:05)
[2021-03-14 05:33] LABS: Anisocytosis Slight; Basophils % (A) 0 %; Eosinophils % (A) 0 %; HCT 29.3 % (34.0-46.0); HGB 9.3 gm/dL (11.4-16.0); Hypochromasia Slight; Lymphocytes # (A) 0.4 k/uL (1.0-4.8); Lymphocytes % (A) 4 %; MCH 28.8 pg (25.0-35.0); MCHC 31.8 g/dL (31.0-37.0); MCV 90.6 fL (80.0-100.0); Mean Platelet Volume 7.7; Monocytes # (A) 0.3 k/uL (0-1.0); Monocytes % (A) 4 %; Neutrophils % (A) 91 %; Platelet Count 335 k/uL (150-450); Poikilocytosis Slight; RBC 3.24 m/uL (3.80-5.40); RDW 17.3 % (11.5-15.5); WBC 9.9 k/uL (3.8-10.6)
[2021-03-14 05:46] LABS: D-Dimer 1.65 mg/L FEU (<0.60)
[2021-03-14 05:55] LABS: ALT <6 U/L (4-34); AST 17 U/L (14-36); African American GFR (CKD) >90 (>60 ml/min/1.73 sqM); Albumin 2.4 g/dL (3.5-5.0); Alkaline Phosphatase 116 U/L (38-126); Anion Gap -2 mmol/L; Blood Urea Nitrogen 33 mg/dL (7-17); C Reactive Protein 7.1 mg/dL (<1.0); Calcium 8.6 mg/dL (8.4-10.2); Carbon Dioxide 34 mmol/L (22-30); Chloride 110 mmol/L (98-107); Glucose 123 mg/dL (74-99); Non-African American GFR(CKD) >90 (>60 ml/min/1.73 sqM); Potassium 4.1 mmol/L (3.5-5.1); Sodium 142 mmol/L (137-145); Total Bilirubin 0.5 mg/dL (0.2-1.3); Total Protein 4.6 g/dL (6.3-8.2)
[2021-03-14] MEDS: PANTOPRAZOLE 40 MG TABLET PO SCH (06:09)
[2021-03-14] MEDS: PIPERACILLIN-TAZOBACTAM 3.375 GM in SODIUM CHLORIDE 0.9% 100 ML IVPB SCH ×3 (06:09→21:03)
[2021-03-14] MEDS: LEVOTHYROXINE 50 MCG TAB PO SCH (06:09)
[2021-03-14] MEDS: ALBUTEROL HFA INHALER INHALATION SCH ×4 (07:25→19:42)
[2021-03-14] MEDS: SYMBICORT 160-4.5 MCG INHALER INHALATION SCH ×2 (07:26→19:42)
--- NOTE | 2021-03-14 07:44 | XR ---
EXAMINATION TYPE: XR chest 1V portable DATE OF EXAM: 03/14/2021 HISTORY: covid, left pneumothorax COMPARISON: 03/13/2021 TECHNIQUE: Single view of the chest is submitted. FINDINGS: Left-sided chest tube is in place with its distal tip within the lung apex. Previously noted left-allison ed pneumothorax persists although is much smaller in size with apical pleural distance of only 3 mm v ersus 3.5 cm previously. There is also a right-sided pneumothorax with apical pleural distance of 1 c m. Improved aeration left lower lobe. Bilateral pleural effusions and infiltrates persist. The heart is stable. Hilar and mediastinal structures are within normal limits. Degenerative changes are seen of the dorsal spine. IMPRESSION: 1. Tiny biapical pneumothoraces. Left-sided pneumothorax is improved relative to prior examination.
--- NOTE | 2021-03-14 07:44 | P.GSCN ---
History of Present Illness Consult date: 03/13/21 Reason for Consult: Left pneumothorax, chest tube management. Requesting physician: Jj Esquivel History of present illness: This is an 80-year-old female patient who is followed by Dr. Kyleigh Garcia on an outpatient basis. She has a past medical history significant for hypertension, hyperlipidemia, musculoskeletal disorder, COPD, history of past CVAs with left- sided weakness in 2004 and 2016, Parkinson's disease, hypothyroidism, diverticular disease, depression, frequent falls, and osteoarthritis. On 02/28/2021 the patient presented to the emergency department here at [facility] with complaints of right sided chest discomfort, generalized weakness and dragging her right foot over a 2 day period and history of recent multiple falls. The patient at this time is a poor historian and most of the information was obtained from her chart. Subsequently, due to her recent falls and history of past CVAs with left-sided residual weakness the patient's [id number] called EMS. The patient on presentation denied any headaches, chest pain, nausea, vomiting, chills, fever. Due to the patient's history of arthritis she apparently was on a Medrol dose pack which she had just finished prior to admission to the hospital. On presentation to the hospital the patient underwent a computed tomography scan of her brain without contrast which showed no acute intracranial abnormality. A chest x-ray was completed which demonstrated a right upper lobe and right lower lobe pneumonia which was new co mpared to an old exam. It also demonstrated underlying COPD, mild to moderate right pleural effusion and a right sided rib fracture. Laboratory results on admission showed a WBC count 8.1, hemoglobin 11.0, hematocrit 31.9, platelets 339, sodium 126, potassium 3.0, BUN 20, creatinine 0.46, calcium 8.1, AST 48 and a COVID 19 PCR showed detected. Due to the patient's presenting symptoms, and findings on the above-mentioned studies the patient was admitted to the hospital for further evaluation and treatment. This morning, 03/13/2021 on her chest x- ray demonstrated a new fairly large left-sided pneumothorax estimated nearly 60%, a small to moderate left basilar pleural fluid collection and associated left lung atelectasis and/or infiltrate. Due to the findings on this morning's chest x-ray Dr. Esquivel from pulmonary/critical care medicine placed a left sided Thoravent chest tube. A repeat chest x-ray post Thoravent placement showed a large hydropneumothorax. Subsequently Dr. Esquivel placed a #28-Swedish left-sided pleural chest tube and the left Thoravent tube was removed. Due to the new findings of left-sided hydropneumothorax this morning a consult was placed to Dr. Burris from cardiothoracic surgery for further evaluation and chest tube management. Review of Systems A 14 point review of systems could not be completed due to the patient's mentati on this morning and her information was obtained from her chart. Past Medical History Past Medical History: COPD, CVA/TIA, Hyperlipidemia, Hypertension, Musculo skeletal Disorder, Neurologic Disorder, Osteoarthritis (OA), Pneumonia, Renal Disease, Respiratory Disorder, Rheumatoid Arthritis (RA), Thyroid Disorder Additional Past Medical History / Comment(s): CVAs with L sided weakness, TIAs, home oxygen at 2L/NC ATC, Parkinson's disease, pt states has had irregular heart beat, murmur, diverticular disease, born with one functioning kidney, migraines, bilateral feet edema. History of Any Multi-Drug Resistant Organisms: None Reported Past Surgical History: Adenoidectomy, Appendectomy, Tonsillectomy, Tubal Ligation Additional Past Surgical History / Comment(s): Nasal septal deviation corrected with surgery, colonoscopy. Past Anesthesia/Blood Transfusion Reactions: No Reported Reaction Additional Past Anesthesia/Blood Transfusion Reaction / Comm: Pt has clausterphobia. Smoking Status: Current every day smoker - Past Family History Mother Family Medical History: Pneumonia Father Family Medical History: Myocardial Infarction ([place]) Additional Family Medical History / Comment(s): Father of a [place] in his 40s. Medications and Allergies Home Medications Medication Instructions Recorded Confirmed Type Clopidogrel Bisulfate [Plavix] 75 mg PO DAILY 01/29/15 02/28/21 History HYDROcodone/APAP 10-325MG [[place] 1 tab PO QID PRN 01/29/15 02/28/21 History 10-325] hydroCHLOROthiazide 25 mg PO DAILY 08/10/18 02/28/21 History Primidone [Mysoline] 50 mg PO TID 01/26/19 02/28/21 History Baclofen [Lioresal] 10 mg PO TID 07/29/19 02/28/21 History Aspirin EC [Ecotrin Low Dose] 81 mg PO DAILY 02/28/21 02/28/21 History Carbidopa-Levodopa 25-100 mg 1 tab PO TID 02/28/21 02/28/21 History [Sinemet 25-100] Fluticasone/Vilanterol [Breo 1 puff INHALATION RT-DAILY 02/28/21 02/28/21 History Ellipta 200-25 Mcg INH] Furosemide [Lasix] 40 mg PO DAILY PRN 02/28/21 02/28/21 History Ipratropium-Albuterol Nebulize 3 ml INHALATION RT-QID PRN 02/28/21 02/28/21 History [Duoneb 0.5 mg-3 mg/3 ml Soln] Levothyroxine Sodium [Synthroid] 50 mcg PO DAILY 02/28/21 02/28/21 History Metoprolol Tartrate [Lopressor] 12.5 mg PO BID 02/28/21 02/28/21 History Potassium Chloride ER [K-Dur 10] 10 meq PO DAILY 02/28/21 02/28/21 History Allergies Allergy/AdvReac Type Severity Reaction Status Date / Time cimetidine [From Tagamet] Allergy Rash/Hives Verified 02/28/21 23:14 cimetidine HCl [From Tagamet] Allergy Rash/Hives Verified 02/28/21 23:14 prednisone Allergy Swelling Verified 02/28/21 23:14 sulfamethoxazole Allergy Nausea & Verified 02/28/21 23:14 [From Bactrim] Vomiting trimethoprim [From Bactrim] Allergy Nausea & Verified 02/28/21 23:14 Vomiting Surgical - Exam Vital Signs Pulse Resp BP Pulse Ox 78 26 H 107/57 91 L 02/28/21 20:38 02/28/21 20:38 02/28/21 20:38 02/28/21 20:38 - General This is an 80-year-old frail debilitated and cachectic female. moderate distress, cachectic, chronically ill - Eyes PERRL, normal ocular movement, no icteric - ENT normal pinna, normal nares, normal mucosa, no congestion - Neck Neck is supple, no lymphadenopathy. no masses, no bruits, no venous distension - Respiratory Essentially clear to her left lobes, diminished to her left lobes, no wheezes, rhonchi or crackles. Left sided pleural chest tube in place to low continuous wall suction -20 cm H2O. Continuous air leak present. Draining dark serosanguineous drainage with 700 mL present in the Pleur-evac. Oxygen saturations 100% on BiPAP support. - Cardiovascular Regular rhythm and rate. S1 and S2 present, negative for S3, gallop or murmur. - Abdomen Abdomen is soft, nontender and nondistended. Active bowel sounds present in all 4 quadrants. No guarding or rigidity. - Genitourinary Arce catheter in place for accurate I&O. Draining clear yellow urine. - Rectum Deferred - Integumentary Scattered ecchymotic areas to her bilateral upper extremities. no rash, no growths - Neurologic normal sensation - Musculoskeletal Moves all 4 extremities. Generalized weakness. - Psychiatric oriented to person, speech is normal, no memory intact Results - Labs 03/13/21 09:08 03/13/21 09:08 Abnormal Lab Results - Last 24 Hours (Table) 03/13/21 03/13/21 03/13/21 Range/Units 06:43 08:32 09:08 RBC 2.91 L (3.80-5.40) m/uL Hgb 8.5 L D (11.4-16.0) gm/dL Hct 26.0 L (34.0-46.0) % RDW 17.3 H (11.5-15.5) % Lymphocytes # 0.4 L (1.0-4.8) k/uL D-Dimer 1.74 H (<0.60) mg/L FEU ABG pCO2 (35-45) mmHg ABG pO2 (83-108) mmHg ABG HCO3 (21-25) mmol/L ABG Total CO2 (19-24) mmol/L ABG O2 Saturation (94-97) % Chloride (98-107) mmol/L Carbon Dioxide (22-30) mmol/L BUN (7-17) mg/dL Creatinine (0.52-1.04) mg/dL Glucose (74-99) mg/dL POC Glucose (mg/dL) 162 H (75-99) mg/dL Alkaline Phosphatase (38-126) U/L Total Protein (6.3-8.2) g/dL Albumin (3.5-5.0) g/dL 03/13/21 03/13/21 Range/Units 09:08 09:49 RBC (3.80-5.40) m/uL Hgb (11.4-16.0) gm/dL Hct (34.0-46.0) % RDW (11.5-15.5) % Lymphocytes # (1.0-4.8) k/uL D-Dimer (<0.60) mg/L FEU ABG pCO2 55 H (35-45) mmHg ABG pO2 113 H (83-108) mmHg ABG HCO3 31 H (21-25) mmol/L ABG Total CO2 33 H (19-24) mmol/L ABG O2 Saturation 98.2 H (94-97) % Chloride 108 H (98-107) mmol/L Carbon Dioxide 33 H (22-30) mmol/L BUN 34 H (7-17) mg/dL Creatinine 0.44 L (0.52-1.04) mg/dL Glucose 171 H (74-99) mg/dL POC Glucose (mg/dL) (75-99) mg/dL Alkaline Phosphatase 128 H (38-126) U/L Total Protein 4.7 L (6.3-8.2) g/dL Albumin 2.4 L (3.5-5.0) g/dL Diabetes panel 03/13/21 Range/Units 09:08 Sodium 143 (137-145) mmol/L Potassium 4.3 (3.5-5.1) mmol/L Chloride 108 H (98-107) mmol/L Carbon Dioxide 33 H (22-30) mmol/L BUN 34 H (7-17) mg/dL Creatinine 0.44 L (0.52-1.04) mg/dL Glucose 171 H (74-99) mg/dL Calcium 8.6 (8.4-10.2) mg/dL AST 16 (14-36) U/L ALT <6 (4-34) U/L Alkaline Phosphatase 128 H (38-126) U/L Total Protein 4.7 L (6.3-8.2) g/dL Albumin 2.4 L (3.5-5.0) g/dL Calcium panel 03/13/21 Range/Units 09:08 Calcium 8.6 (8.4-10.2) mg/dL Albumin 2.4 L (3.5-5.0) g/dL Pituitary panel 03/13/21 Range/Units 09:08 Sodium 143 (137-145) mmol/L Potassium 4.3 (3.5-5.1) mmol/L Chloride 108 H (98-107) mmol/L Carbon Dioxide 33 H (22-30) mmol/L BUN 34 H (7-17) mg/dL Creatinine 0.44 L (0.52-1.04) mg/dL Glucose 171 H (74-99) mg/dL Calcium 8.6 (8.4-10.2) mg/dL Adrenal panel 03/13/21 Range/Units 09:08 Sodium 143 (137-145) mmol/L Potassium 4.3 (3.5-5.1) mmol/L Chloride 108 H (98-107) mmol/L Carbon Dioxide 33 H (22-30) mmol/L BUN 34 H (7-17) mg/dL Creatinine 0.44 L (0.52-1.04) mg/dL Glucose 171 H (74-99) mg/dL Calcium 8.6 (8.4-10.2) mg/dL Total Bilirubin 0.6 (0.2-1.3) mg/dL AST 16 (14-36) U/L ALT <6 (4-34) U/L Alkaline Phosphatase 128 H (38-126) U/L Total Protein 4.7 L (6.3-8.2) g/dL Albumin 2.4 L (3.5-5.0) g/dL - Imaging Chest x-ray: report reviewed, image reviewed Assessment and Plan Assessment: 1. Spontaneous large left sided hydropneumothorax, status post placement of a #13-Swedish Thoravent and subsequent placement of a #28 left-sided pleural chest tube by Dr. Esquivel 2. Acute on chronic respiratory failure, secondary to COVID -19 3. Acute exacerbation of chronic obstructive pulmonary disease 4. History of hypertension 5. History of hyperlipidemia 6. History of CVA in 2005 and 2017 with residual left-sided weakness 7. History of multiple and frequent falls from standing, with acute right sided rib fractures 8. Generalized weakness and debilitation 9. Chronic and ongoing history of tobacco dependence 10. History of depression 11. History of hypothyroid 12. History of diverticular disease 13. History of Parkinson's disease Plan: The patient was seen and examined at her bedside in the intensive care unit. Her chart and diagnostics were reviewed. Her case was discussed in detail with Dr. Zarina Burris from cardiothoracic surgery. Continue to monitor daily chest x-rays for resolution of pneumothorax. Continue to monitor for airleak resolution. Keep right pleural chest tube to low continuous wall suction -20 cm H2O. Encourage use of incentive spirometry 10 times every hour while awake. Medical management and other comorbidities per primary care service. BiPAP management per Pulmonary/critical care recommendations. More recommendations to follow based on patient's clinical course. Thank you Dr. Esquivel for this consult and we look forward to working with you in the care of this patient. Time with Patient: Greater than 30
[2021-03-14 08:04] LABS: Glucose,Whole Blood 140 mg/dL (75-99)
--- NOTE | 2021-03-14 08:06 | P.PN ---
Subjective Progress Note Date: 03/14/21 Principal diagnosis: Spontaneous large left sided hydropneumothorax, COVID-19 infection, acute on chronic respiratory failure, acute exacerbation of chronic obstructive pulmonary disease. Previous medical history of hypertension, hyperlipidemia, CVA in 2004 and 2017 with residual left-sided weakness, multiple and frequent falls from standing with acute right sided rib fractures, generalized weakness and debilitation, chronic and ongoing tobacco dependence, depression, hypothyroid, diverticular disease, Parkinson's disease POD #1 placement of left-sided thoravent with subsequent removal, subsequent placement of left-sided pleural chest tube by Dr. Esquivel The patient is currently sitting up in bed in the intensive care unit in mild distress. She denies pain currently, does complain of some shortness of breath. Remains on BiPAP. Left pleural chest tube remains to continuous wall suction with continuous air leak present. Continues on bronchodilators, IV same Medrol, Zosyn per pulmonology. WBC 9.9, hemoglobin 9.3 after 1 unit packed red blood cells given yesterday, BUN 33, creatinine 0.31, d-dimer 1.65, CRP 7.1. Chest x- ray reviewed, left-sided pneumothorax almost completely resolved, tiny right- sided pneumothorax present. No other new concerns at this time. Objective - Vital Signs Vital signs: Vital Signs Temp 98 F 03/14/21 04:00 Pulse 82 03/14/21 07:00 Resp 28 H 03/14/21 07:00 BP 114/62 03/14/21 07:00 Pulse Ox 93 L 03/14/21 07:00 Intake & Output 03/13/21 03/14/21 03/14/21 18:59 06:59 18:59 Intake Total 1457 636 53 Output Total 990 600 35 Balance 467 36 18 Weight 48.988 kg 43.7 kg Intake: IV 1027 636 53 .9 550 50 Bolus 400 Piperacillin-Tazobactam 3 100 .375 gm In Sodium Chloride 0.9% 100 ml @ 25 mls/hr IVPB Q8H [facility] Rx#: [id number] Pressure bag 27 36 3 Sodium Chloride 0.9% 1, 500 50 000 ml @ 75 mls/hr IV . [id number] [facility] Rx#:[id number] Oral 120 Blood Product 310 Rc As-1 Unit 310 [id number] Output: Chest Tube Drainage 850 80 Thora-Vent Left Upper Mid 850 80 -Clavicular Chest Urine 140 520 35 Other: Voiding Method Indwelling Catheter Indwelling Catheter # Voids 1 ABP, PAP, CO, CI - Last Documented Arterial Blood Pressure 137/63 - Exam CONSTITUTIONAL: Appears somewhat comfortable, cooperative, mild distress. Very cachectic and frail RESPIRATORY: Lungs sounds diminished bilaterally. Respirations even, slightly labored. Currently on BiPAP, FiO2 60%, 12/6, with oxygen saturation low to mid 90s. CARDIOVASCULAR: S1, S2 present. Regular rate and rhythm, sinus rhythm on telemetry. Palpable peripheral pulses bilaterally. No edema present. No calf pain or tenderness noted. SCDs present. GASTROINTESTINAL: Abdomen soft, nontender, nondistended. Active bowel sounds present 4 quadrants. NPO due to BiPAP. GENITOURINARY: Arce present draining clear, yellow urine, output overnight 20- 65 mL per hour INTEGUMENTARY: Skin is warm and dry. NEUROLOGIC: Cranial nerves II through XII intact MUSKULOSKELETAL: Able to move all extremities, generalized weakness present PSYCHIATRIC: Alert and oriented to person, cooperative INVASIVE LINES AND TUBES: Left pleural chest tubes present and connected to wall suction, continuous air leak present. Left pleural chest tube with 40 sanguinous drainage overnight, 800 mL present since tube insertion. - Allied health notes Allied health notes reviewed: nursing - Labs CBC & Chem 7: 03/14/21 05:10 03/14/21 05:10 Labs: Abnormal Lab Results - Last 24 Hours (Table) 03/13/21 03/13/21 03/13/21 Range/Units 06:43 06:43 08:32 RBC (3.80-5.40) m/uL Hgb (11.4-16.0) gm/dL Hct (34.0-46.0) % RDW (11.5-15.5) % Neutrophils # (1.3-7.7) k/uL Lymphocytes # (1.0-4.8) k/uL D-Dimer 1.74 H (<0.60) mg/L FEU ABG pCO2 (35-45) mmHg ABG pO2 (83-108) mmHg ABG HCO3 (21-25) mmol/L ABG Total CO2 (19-24) mmol/L ABG O2 Saturation (94-97) % Sodium 146 H (135-145) mmol/L Chloride (98-107) mmol/L Carbon Dioxide (22-30) mmol/L BUN 33.0 H (9.0-27.0) mg/dL Creatinine 0.5 L (0.6-1.5) mg/dL BUN/Creatinine Ratio 66.00 H (12.00-20.00) Ratio Glucose 155 H (70-110) mg/dL POC Glucose (mg/dL) 162 H (75-99) mg/dL Alkaline Phosphatase (38-126) U/L C-Reactive Protein 3.8 H (0.0-0.8) mg/dL Total Protein (6.3-8.2) g/dL Albumin (3.5-5.0) g/dL Crossmatch 03/13/21 03/13/21 03/13/21 Range/Units 09:08 09:08 09:08 RBC 2.91 L (3.80-5.40) m/uL Hgb 8.5 L D (11.4-16.0) gm/dL Hct 26.0 L (34.0-46.0) % RDW 17.3 H (11.5-15.5) % Neutrophils # (1.3-7.7) k/uL Lymphocytes # 0.4 L (1.0-4.8) k/uL D-Dimer (<0.60) mg/L FEU ABG pCO2 (35-45) mmHg ABG pO2 (83-108) mmHg ABG HCO3 (21-25) mmol/L ABG Total CO2 (19-24) mmol/L ABG O2 Saturation (94-97) % Sodium (135-145) mmol/L Chloride 108 H (98-107) mmol/L Carbon Dioxide 33 H (22-30) mmol/L BUN 34 H (9.0-27.0) mg/dL Creatinine 0.44 L (0.6-1.5) mg/dL BUN/Creatinine Ratio (12.00-20.00) Ratio Glucose 171 H (70-110) mg/dL POC Glucose (mg/dL) (75-99) mg/dL Alkaline Phosphatase 128 H (38-126) U/L C-Reactive Protein (0.0-0.8) mg/dL Total Protein 4.7 L (6.3-8.2) g/dL Albumin 2.4 L (3.5-5.0) g/dL Crossmatch See Detail 03/13/21 03/14/21 03/14/21 Range/Units 09:49 05:10 05:10 RBC 3.24 L (3.80-5.40) m/uL Hgb 9.3 L (11.4-16.0) gm/dL Hct 29.3 L (34.0-46.0) % RDW 17.3 H (11.5-15.5) % Neutrophils # 9.0 H (1.3-7.7) k/uL Lymphocytes # 0.4 L (1.0-4.8) k/uL D-Dimer (<0.60) mg/L FEU ABG pCO2 55 H (35-45) mmHg ABG pO2 113 H (83-108) mmHg ABG HCO3 31 H (21-25) mmol/L ABG Total CO2 33 H (19-24) mmol/L ABG O2 Saturation 98.2 H (94-97) % Sodium (135-145) mmol/L Chloride 110 H (98-107) mmol/L Carbon Dioxide 34 H (22-30) mmol/L BUN 33 H (9.0-27.0) mg/dL Creatinine 0.31 L (0.6-1.5) mg/dL BUN/Creatinine Ratio (12.00-20.00) Ratio Glucose 123 H (70-110) mg/dL POC Glucose (mg/dL) (75-99) mg/dL Alkaline Phosphatase (38-126) U/L C-Reactive Protein 7.1 H (0.0-0.8) mg/dL Total Protein 4.6 L (6.3-8.2) g/dL Albumin 2.4 L (3.5-5.0) g/dL Crossmatch 03/14/21 Range/Units 05:10 RBC (3.80-5.40) m/uL Hgb (11.4-16.0) gm/dL Hct (34.0-46.0) % RDW (11.5-15.5) % Neutrophils # (1.3-7.7) k/uL Lymphocytes # (1.0-4.8) k/uL D-Dimer 1.65 H (<0.60) mg/L FEU ABG pCO2 (35-45) mmHg ABG pO2 (83-108) mmHg ABG HCO3 (21-25) mmol/L ABG Total CO2 (19-24) mmol/L ABG O2 Saturation (94-97) % Sodium (135-145) mmol/L Chloride (98-107) mmol/L Carbon Dioxide (22-30) mmol/L BUN (9.0-27.0) mg/dL Creatinine (0.6-1.5) mg/dL BUN/Creatinine Ratio (12.00-20.00) Ratio Glucose (70-110) mg/dL POC Glucose (mg/dL) (75-99) mg/dL Alkaline Phosphatase (38-126) U/L C-Reactive Protein (0.0-0.8) mg/dL Total Protein (6.3-8.2) g/dL Albumin (3.5-5.0) g/dL Crossmatch - Imaging and Cardiology Chest x-ray: report reviewed, image reviewed Assessment and Plan Assessment: 1. Spontaneous large left sided hydropneumothorax, status post placement of thoravent with subsequent removal, subsequent placement of left-sided pleural chest tube by Dr. Esquivel 2. COVID-19 infection 3. Acute on chronic respiratory failure 4. Acute exacerbation of chronic obstructive pulmonary disease 5. History of hypertension 6. History of hyperlipidemia 7. chronic hypoxic respiratory failure maintained on home oxygen at 2 L 8. CVA in 2005 and 2017 with residual left-sided weakness 9. Multiple and frequent falls from standing with acute right sided rib fractu res 10. Generalized weakness and debilitation 11. Chronic and ongoing tobacco dependence 12. Depression 13. Hypothyroid 14. Parkinson's disease Plan: 1. Continue left-sided chest tube to continuous wall suction, monitor for air leak resolution. 2. Wean O2 as tolerated. BiPAP management, Covid management, steroids and antibiotics per pulmonology 3. Will monitor daily labs and x-rays 4. Management of the comorbidities per primary care service 5. Will continue to follow and make recommendations as necessary Time with Patient: Less than 30
[2021-03-14] MEDS: CARBIDOPA-LEVODOPA 25-100 MG 1 EACH TAB PO SCH ×4 (09:00→22:28)
[2021-03-14] MEDS: BACLOFEN 10 MG TAB PO SCH ×4 (09:00→22:27)
[2021-03-14] MEDS: ASCORBIC ACID 500 MG TAB PO SCH (09:00)
[2021-03-14] MEDS: CLOPIDOGREL 75 MG TAB PO SCH (09:00)
[2021-03-14] MEDS: CYANOCOBALAMIN 500 MCG TAB PO SCH (09:00)
[2021-03-14] MEDS: CHOLECALCIFEROL 25 MCG (1000 IU) TABLET PO SCH (09:00)
[2021-03-14] MEDS: ASPIRIN 81 MG PO SCH (09:00)
[2021-03-14] MEDS: METOPROLOL TARTRATE 12.5 MG TAB PO SCH ×3 (09:01→22:27)
[2021-03-14] MEDS: PRIMIDONE 50 MG TAB PO SCH ×4 (09:01→22:27)
[2021-03-14] MEDS: NYSTATIN 100,000 UNIT/ML SUSP 500,000 UNIT/5 ML CUP PO SCH ×4 (09:01→22:25)
[2021-03-14] MEDS: ZINC SULFATE 220 MG CAP PO SCH (09:01)
[2021-03-14] MEDS: SODIUM CHLORIDE 0.9% 1,000 ML IV SCH ×2 (10:12→18:54)
[2021-03-14 10:18] LABS: Ferritin 531.8 ng/mL (10.0-291.0)
--- NOTE | 2021-03-14 11:34 | P.PN ---
Subjective Progress Note Date: 03/14/21 Principal diagnosis: Acute spontaneous left sided hemopneumothorax., Acute on chronic hypoxic for failure secondary to COVID-19 pneumonia and acute COPD exacerbation. 80-year-old female, who presents to the emergency department, brought in by EMS, on February 28. She apparently complained of weakness, and fatigue, with multiple falls. She apparently fell once in the bathroom, and then once subsequent to that while sitting on the bed. She apparently came into the emergency room complaining of diffuse aches and pains including right rib pain, and some issues with her right foot. The patient apparently had a stroke in 2004, and has left- sided weakness as a residual. The patient also has a history of chronic obstructive pulmonary disease, and sees our nurse practitioner in the office for that. She apparently did test positive for coronavirus, and hasn't been feeling well for at least 2 weeks. She has a history of COPD, stroke, hypothyroidism, diverticular disease, depression, hypertension, and nasal septal deviation. She does continue to smoke on a daily basis. Lab data includes a white count of 8.1, hemoglobin 11, hematocrit 31.9, platelet count 339,000. Sodium was 126, potassium 3, chloride 90, CO2 30, anion gap 6, BUN 20, creatinine 0.46. Brain CT only showed cerebral atrophy, nothing acute. Chest x-ray shows right upper lobe, and right lower lobe pneumonia, which is new. There is also a right-sided rib fracture. X-rays of the right and left knee showed some chronic changes, nothing acute and certainly no fractures. Hip x-rays were negative as well. Progress note dated 03/02/2021. 80-year-old female, that we saw in the emergency department yesterday. She came with complaints of weakness, fatigue, she had multiple falls. X-rays I believe are all negative, although apparently she didn't have a right-sided rib fracture. She also may have a right upper lobe and right lower lobe pneumonia, which may relate to aspiration. Currently, the patient appears to be much more alert and awake today. She is on nasal O2 at 4 L. She is getting saline at 75 mL an hour. White count was 3, hemoglobin 11.7, hematocrit 35.9, platelet count was 302,000. On 03/03/2021 patient seen in follow-up on medical floor, she is currently on 8 L of oxygen pulse ox of 91%, is very congested, her chest is rattly. She is weak, she states she is able to bring up some phlegm which is usually white or light yellow, trace chest x-ray shows patchy bilateral lung infiltrates. Today's labs have been noted, white blood cell count is 5.8, hemoglobin is 11.8, d-dimer is 2.67, sodium is improving, up to 134, rest of electrolytes were within normal limits, BUN is 11 creatinine 0.48. CRP is 49.6, LDH is 461. Pro- calcitonin level is 0.32. Patient continues on inhalers, she continues on Zosyn, IV hydration with 0.9 normal saline at a rate of 75 ML per hour, and Decadron 6 mg daily in addition to vitamins. On 03/12/2021 patient seen in follow-up on medical surgical floor, she appears quite frail and weak, she is resting in bed, she states her breathing has not worsened but she still remains congested, and patient has not been able to clear much of her phlegm. She is currently on 13 L of oxygen pulse ox is 96%, we dropped the FiO2 down to 10 L, and she will be rechecked in the 20-30 minutes for any worsening hypoxia, she is afebrile, hemodynamically stable, she remains on IV Solu-Medrol, and empiric abt the form of Levaquin and Zosyn, Solu-Medrol 20 mg every 8 hours, she is on Symbicort, no new labs today, no new chest x- rays. On 03/13/2021 received a phone call from our radiology to notify of a large left-sided pneumothorax related to be at 60%, and small to moderate left basilar pleural fluid collection and associated left lung atelectasis. As such emergent transfer to the intensive care was ordered, patient is on 12 L of oxygen, she is desaturating, she is increasingly more short of breath, tachypneic, and #13 thoravent was emergently placed left upper anterior chest and initially there was bubbling in the Pleur-evac however the lung failed to reexpand, and patient was transferred to the intensive care unit where the pleural VAC was removed and #28 [place] chest tube was placed in the left chest, and there was a large amount of dark blood that drained out of the chest tube, appropximmately 500 mL. Patient had been on prophylactic doses of Lovenox at 40 mg once daily for the last several days, repeat blood work today is pending, status post CBC is ordered and pending at this time, patient has no running IVs running at this point, current blood pressure is 100/56 with a map of 75, she is in sinus mechanism with a rate of 80 BPM, her current saturation is 85% on 15 L high flow. And patient will be placed on BiPAP support with pressures of 12/6 and FiO2 100%. Repeat chest x-ray is pending post insertion of left-sided chest tube. Patient is awake, she is following commands, she is having a lot of discomfort in her left chest post insertion of 2 chest tubes, pain medications were administered in the form of morphine, and patient was locally anesthetized using the 1% lidocaine to insertion of chest tubes. We reached out to the patient's son, Clarence, next of kin to notify him of patient's deteriorating clinical condition and notify him of the events of this morning and transferred to the intensive care unit. Patient is quite frail, debilitated at baseline, with multiple comorbidities, and advanced COPD on home oxygen. Patient's son made a clear that no aggressive heroic resuscitation is desired and neither is life-support. He would like to continue supportively treating the patientat this time. And the visitation will be arranged for the patient's son and her daughter to come and see the patient sometime today according to the hospital visitation policy. Patient was reevaluated today on 03/12/2021, remains on BiPAP, with IPAP of 12 and EPAP of 6 FiO2 of 60%, O2 saturation is in the mid 90s. Patient seems to be almost getting BiPAP dependent. Chest x-ray showed complete reexpansion of the left lung, small tiny apical right-sided pneumothorax is noted. Bilateral infiltrates are also noted. Patient is sitting up in bed, remains in the ICU, does complain of shortness of breath, but no pain. Chest tube remains on continuous wall suction with continuous air leak noted. Remains on bronchodilators, Medrol, Zosyn, and she received a unit of packed RBCs after we noted that the patient had a relatively good sized left-sided hemothorax. Today's labs showed a hemoglobin of 9.3 WBC count is 9.9. D-dimer is 1.65 ABG from yesterday on BiPAP showed a pO2 of 113 pCO2 of 55 pH of 7.35 but this was on 80% FiO2 and IPAP of 12 and EPAP of 6 Electrolytesenc normal renal profile is normal. Objective - Vital Signs Vital signs: Vital Signs Temp 97.6 F 03/14/21 08:00 Pulse 70 03/14/21 11:00 Resp 13 03/14/21 11:00 BP 107/65 03/14/21 11:00 Pulse Ox 93 L 03/14/21 11:00 Intake & Output 03/13/21 03/14/21 03/14/21 18:59 06:59 18:59 Intake Total 1457 636 415 Output Total 990 600 200 Balance 467 36 215 Weight 48.988 kg 43.7 kg 43.7 kg Intake: IV 1027 636 415 .9 550 400 Bolus 400 Piperacillin-Tazobactam 3 100 .375 gm In Sodium Chloride 0.9% 100 ml @ 25 mls/hr IVPB Q8H [facility] Rx#: [id number] Pressure bag 27 36 15 Sodium Chloride 0.9% 1, 500 50 000 ml @ 75 mls/hr IV . [id number] [facility] Rx#:[id number] Oral 120 Blood Product 310 Rc As-1 Unit 310 [id number] Output: Chest Tube Drainage 850 80 40 Thora-Vent Left Upper Mid 850 80 40 -Clavicular Chest Urine 140 520 160 Other: Voiding Method Indwelling Catheter Indwelling Catheter Indwelling Catheter # Voids 1 1 ABP, PAP, CO, CI - Last Documented Arterial Blood Pressure 133/56 - Exam CONSTITUTIONAL: Revealed an 80-year-old female, looks frail and cachectic, comfortable on BiPAP. RESPIRATORY: Symmetrical chest expansion, crackles at the bases, no rhonchi no wheezes, left-sided chest tube is noted and continues to leak is noted. CARDIOVASCULAR: Normal S1 and S2, no S3 gallop. GASTROINTESTINAL: Soft nontender no megaly no rebound no guarding. Lymphatics: No cervical or supraclavicular lymphadenopathy. HEENT: PERRLA, EOMI, anicteric, no neck masses, no JVD. INTEGUMENTARY: No rashes. NEUROLOGIC: Awake, intermittently confused, patient is receiving pain medication in the form of Dilaudid. MUSKULOSKELETAL: No limitation in range of motion, no deformities. PSYCHIATRIC: Anxious mood, blunt affect, normal mental status. - Labs CBC & Chem 7: 03/14/21 05:10 03/14/21 05:10 Labs: Abnormal Lab Results - Last 24 Hours (Table) 03/13/21 03/13/21 03/14/21 Range/Units 06:43 09:08 05:10 RBC 3.24 L (3.80-5.40) m/uL Hgb 9.3 L (11.4-16.0) gm/dL Hct 29.3 L (34.0-46.0) % RDW 17.3 H (11.5-15.5) % Neutrophils # 9.0 H (1.3-7.7) k/uL Lymphocytes # 0.4 L (1.0-4.8) k/uL D-Dimer (<0.60) mg/L FEU Sodium 146 H (135-145) mmol/L Chloride (98-107) mmol/L Carbon Dioxide (22-30) mmol/L BUN 33.0 H (9.0-27.0) mg/dL Creatinine 0.5 L (0.6-1.5) mg/dL BUN/Creatinine Ratio 66.00 H (12.00-20.00) Ratio Glucose 155 H (70-110) mg/dL POC Glucose (mg/dL) (75-99) mg/dL Ferritin (10.0-291.0) ng/mL C-Reactive Protein 3.8 H (0.0-0.8) mg/dL Total Protein (6.3-8.2) g/dL Albumin (3.5-5.0) g/dL Crossmatch See Detail 03/14/21 03/14/21 03/14/21 Range/Units 05:10 05:10 08:02 RBC (3.80-5.40) m/uL Hgb (11.4-16.0) gm/dL Hct (34.0-46.0) % RDW (11.5-15.5) % Neutrophils # (1.3-7.7) k/uL Lymphocytes # (1.0-4.8) k/uL D-Dimer 1.65 H (<0.60) mg/L FEU Sodium (135-145) mmol/L Chloride 110 H (98-107) mmol/L Carbon Dioxide 34 H (22-30) mmol/L BUN 33 H (9.0-27.0) mg/dL Creatinine 0.31 L (0.6-1.5) mg/dL BUN/Creatinine Ratio (12.00-20.00) Ratio Glucose 123 H (70-110) mg/dL POC Glucose (mg/dL) 140 H (75-99) mg/dL Ferritin 531.8 H (10.0-291.0) ng/mL C-Reactive Protein 7.1 H (0.0-0.8) mg/dL Total Protein 4.6 L (6.3-8.2) g/dL Albumin 2.4 L (3.5-5.0) g/dL Crossmatch Assessment and Plan Assessment: Impression: Acute on chronic hypoxic failure secondary to COVID-19 infection and acute COPD exacerbation. As well as spontaneous left sided hemopneumothorax. Requiring chest tube placement on the left side. COVID-19 infection/pneumonitis. Acute exacerbation of COPD. Benign essential hypertension. Dyslipidemia. Chronic hypoxic respiratory failure secondary to COPD maintained on 2 L nasal cannula. History of CVA with chronic left-sided weakness. Medical debility. Ongoing tobacco dependence. Hypothyroidism. History of Parkinson's disease. History of depression. Recommendation: Continue to monitor the patient in the ICU. Continue chest tube to suction. Continue the COVID-19 cocktail. Continue BiPAP and titrate FiO2 accordingly. Continue steroids and antibiotics. Will discuss her condition with family, May have to seriously consider comfort care measures on this patient if she doesn't show much improvement in the next few days. Patient remains critically ill, and prognosis is extremely poor. We'll continue to follow. Critical care time is more than 30 minutes. Time with Patient: Greater than 30
[2021-03-14 12:03] LABS: Glucose,Whole Blood 126 mg/dL (75-99)
[2021-03-14 12:44] LABS: Phosphorus 2.6 mg/dL (2.5-4.5)
[2021-03-14] MEDS ORDERED: MVI, ADULT NO.4 WITH VIT K 10 ML, TRACE (CONC-1ML/DOSE) 1 ML in AMINO ACID 4.25%-D10W+L... IV SCH ×3 (14:00)
--- NOTE | 2021-03-14 17:47 | P.PN ---
Subjective Progress Note Date: 03/14/21 I am assuming care of this patient as of 03/06/2021 at 8 AM. I was out of town and Dr. Aguilera was covering for me. HMP done by Dr. Camejo on 03/01/2021 Elicia Bradshaw, is an 80-year-old female admitted to [facility] through emergency room after presenting with symptoms of COVID- 19 pneumonia. Patient was having frequent falls at home along with chest pain and coughing for 3 days prior to hospitalization patient has a past medical history of COPD, CVA, hypertension, hypothyroidism, depression, diverticulitis, Parkinson's disease, COPD maintained on home O2 and nicotine dependence. Patient was positive COVID-19 chest x-ray performed in ER showing right upper lobe and right lower lobe pneumonia right-sided rib fracture. Patient was admitted to observation unit. Pulmonary and neurology services were consulted. On 03/06/2021 patient remains in the observation unit. Patient's alert and oriented 3 area patient remains on IV Solu-Medrol, IV Zosyn, vitamin C, zinc, vitamin D. She remains on high flow oxygen at 15 L. Pulmonary services are following. Patient was evaluated by neurology services due to increased falls and Parkinson's disease. No changes to Parkinson's medication. At this time patient denies chest pain. Patient denies nausea vomiting or diarrhea. Patient denies any urinary burning or frequency area potassium 3.3 replace per protocol. Morphine added for increase pain. On 03/07/2021 patient was seen and examined on the medical floor she is alert and oriented 3 in no apparent distress she feels better he has less cough and shortness of breath currently she is maintained on oxygen 10 L via high flow nasal cannula there is no fever or chills no headache or dizziness no chest pain no shortness of breath at rest she has shortness of breath with any activity there is no nausea or vomiting no abdominal pain no diarrhea and no urinary symptoms On 03/08/2021 patient is alert and oriented 3. Patient remains on 10 L high flow nasal cannula. Patient remains with cough and shortness breath. Patient denies nausea vomiting or diarrhea. Patient denies any urinary burning or frequency On 03/09/2021 patient was seen and examined on the medical floor she is alert and oriented 3 in no apparent distress, she is maintained on oxygen at 10 L via nasal cannula, she is still complaining of shortness of breath and occasional cough otherwise she denies any complaints she is tolerating diet 12 vital examination reveals a temperature of 97.8 pulse 59 respiration 18 blood pressure 99/54 pulse ox 92% on 10 L high flow cannula white blood count 4.0 hemoglobin 12.1 platelet count 326 sodium 136 potassium 4.2 chloride 103 CO2 26 BUN 22 creatinine 0.46 liver function is normal, patient is maintained on Symbicort inhaler albuterol inhaler subcu Lovenox IV Solu-Medrol and IV Zosyn On 03/10/2021 patient was seen and examined on the medical floor she is alert and oriented in no distress she is still requiring oxygen 10 L via high flow cannula she is still complaining of shortness of breath with any activity and occasional cough she is complaining of generalized weakness otherwise she denies any complaints there is no fever or chills no headache or dizziness no chest pain no nausea or vomiting no abdominal pain no diarrhea no blood in the stools no burning with urination no frequency or urgency and no hematuria she is still maintained on IV antibiotic IV steroids and subcu Lovenox patient is improving gradually. On 03/11/2021 patient was seen and examined on the medical floor she is alert and oriented 3 in no apparent distress she feels better she has less cough and shortness of breath currently she is maintained on oxygen 10 L via high flow nasal cannula there is no fever or chills no headache or dizziness no chest pain no shortness of breath at rest she has shortness of breath with any activity there is no nausea or vomiting no abdominal pain no diarrhea and no urinary symptoms On 03/12/2021 patient was seen and examined on the medical floor she is alert and oriented , she is still requiring oxygen 10 L via high flow cannula she is still complaining of shortness of breath with any activity and cough she is complaining of generalized weakness otherwise she denies any complaints there is no fever or chills no headache or dizziness no chest pain no nausea or vomiting no abdominal pain no diarrhea no blood in the stools no burning with urination no frequency or urgency and no hematuria she is still maintained on IV antibiotic IV steroids and subcu Lovenox patient is improving gradually. On 03/13/2021 patient was seen and examined in the ICU is alert responsive in no apparent distress she is maintained on BiPAP, earlier this morning patient had a chest x-ray that revealed a large left sided pneumothorax patient was transferred to ICU she underwent left sided chest tube placement. Currently patient is awake she is following command she is maintained on BiPAP blood pressure is 140/55 heart rate 71 respiration 18 temperature 97.4 arterial blood gas reveals a pH of 7.37 pCO2 55 PO2 113 White blood count 6.2 hemoglobin 8.5 platelet count 365 On 03/14/2021 patient was seen and examined in the ICU is alert responsive in no apparent distress she is maintained on BiPAP, Currently patient is awake she is following command she is maintained on BiPAP blood pressure is 132/60 heart rate 76 respiration 18 temperature 97.6 arterial blood gas reveals a pH of 7.37 pCO2 55 PO2 113 White blood count 9.9 hemoglobin 9.3 platelet count 335 Objective - Vital Signs Vital signs: Vital Signs Temp 97.6 F 03/14/21 16:00 Pulse 89 03/14/21 17:00 Resp 19 03/14/21 17:00 BP 111/63 03/14/21 17:00 Pulse Ox 92 L 03/14/21 17:00 Intake & Output 03/13/21 03/14/21 03/14/21 18:59 06:59 18:59 Intake Total 4431 892 6359 Output Total 990 600 455 Balance 467 36 578 Weight 48.988 kg 43.7 kg 43.7 kg Intake: IV 5309 892 9864 .9 550 1000 Bolus 400 Piperacillin-Tazobactam 3 100 .375 gm In Sodium Chloride 0.9% 100 ml @ 25 mls/hr IVPB Q8H [facility] Rx#: [id number] Pressure bag 27 36 33 Sodium Chloride 0.9% 1, 500 50 000 ml @ 75 mls/hr IV . [id number] [facility] Rx#:[id number] Oral 120 Blood Product 310 Rc As-1 Unit 310 [id number] Output: Chest Tube Drainage 850 80 70 Thora-Vent Left Upper Mid 850 80 70 -Clavicular Chest Urine 140 520 385 Other: Voiding Method Indwelling Catheter Indwelling Catheter Indwelling Catheter # Voids 1 1 ABP, PAP, CO, CI - Last Documented Arterial Blood Pressure 144/62 - Exam In general patient is alert and oriented 3 in no apparent distress Head normocephalic and atraumatic Neck supple no JVD no goiter no lymphadenopathy Lungs diminished bilaterally Heart regular rate and rhythm S1-S2, no rub or gallop Abdomen is soft nontender nondistended positive bowel sounds no hepatosplenomegaly Extremities no edema no cyanosis or clubbing Neuro no gross focal deficit Tremor noted known Parkinson's disease - Labs CBC & Chem 7: 03/14/21 05:10 03/14/21 05:10 Labs: Abnormal Lab Results - Last 24 Hours (Table) 03/14/21 03/14/21 03/14/21 Range/Units 05:10 05:10 05:10 RBC 3.24 L (3.80-5.40) m/uL Hgb 9.3 L (11.4-16.0) gm/dL Hct 29.3 L (34.0-46.0) % RDW 17.3 H (11.5-15.5) % Neutrophils # 9.0 H (1.3-7.7) k/uL Lymphocytes # 0.4 L (1.0-4.8) k/uL D-Dimer 1.65 H (<0.60) mg/L FEU Chloride 110 H (98-107) mmol/L Carbon Dioxide 34 H (22-30) mmol/L BUN 33 H (7-17) mg/dL Creatinine 0.31 L (0.52-1.04) mg/dL Glucose 123 H (74-99) mg/dL POC Glucose (mg/dL) (75-99) mg/dL Ferritin 531.8 H (10.0-291.0) ng/mL C-Reactive Protein 7.1 H (<1.0) mg/dL Total Protein 4.6 L (6.3-8.2) g/dL Albumin 2.4 L (3.5-5.0) g/dL 03/14/21 03/14/21 Range/Units 08:02 12:02 RBC (3.80-5.40) m/uL Hgb (11.4-16.0) gm/dL Hct (34.0-46.0) % RDW (11.5-15.5) % Neutrophils # (1.3-7.7) k/uL Lymphocytes # (1.0-4.8) k/uL D-Dimer (<0.60) mg/L FEU Chloride (98-107) mmol/L Carbon Dioxide (22-30) mmol/L BUN (7-17) mg/dL Creatinine (0.52-1.04) mg/dL Glucose (74-99) mg/dL POC Glucose (mg/dL) 140 H 126 H (75-99) mg/dL Ferritin (10.0-291.0) ng/mL C-Reactive Protein (<1.0) mg/dL Total Protein (6.3-8.2) g/dL Albumin (3.5-5.0) g/dL Assessment and Plan Assessment: 1. Acute on chronic hypoxic respiratory failure secondary to acute COVID-19 related pneumonia. Currently on IV Solu-Medrol and Zosyn 2. Acute exacerbation of COPD 3. Parkinson's disease. Patient maintained on levodopa 4. Chronic hypoxic respiratory failure. Maintain on home oxygen 2 L 5. Multiple falls and generalized weakness. And right-sided rib fracture Patient was evaluated by neurology services due to known history of Parkinson's disease no changes to medication 6. Ongoing nicotine dependence despite extensive education on the importance of smoking sensation 7. History of CVA 8. Essential hypertension 9. History of hypothyroidism 10. History of diverticular disease 11. History of depression 12. Hypokalemia this and replace per protocol 13. Left sided pneumothorax status post left chest tube placement and transfer to ICU currently patient is maintained on BiPAP 14. Bilateral knee pain. Patient was evaluated by orthopedic services. It is reported this is a chronic issue. Recommending physical therapy with no plans for surgical intervention DVT prophylaxis Lovenox. GI prophylaxis Protonix Sputum cultures pending. Pulmonary service is following. Patient is improving gradually Maintained on IV Solu-Medrol and IV Zosyn Maintained on vitamin C vitamin D and zinc Repeat labs ordered for a.m. PT OT consulted Social consult for possible placement
[2021-03-14 18:00] LABS: Glucose,Whole Blood 151 mg/dL (75-99)
[2021-03-14] MEDS: ATORVASTATIN 10 MG TAB PO SCH (21:10)
[2021-03-14] MEDS ORDERED: AMIODARONE 360 MG in DEXTROSE 5% IN WATER 200 ML IV ONE ×2 (21:50)
[2021-03-14] MEDS ORDERED: DEXTROSE 5% IN WATER 100 ML with AMIODARONE 150 MG IV ONE (21:50)
[2021-03-14] MEDS ORDERED: AMIODARONE 450 MG in DEXTROSE 5% IN WATER 250 ML IV SCH ×2 (22:00)
[2021-03-15 01:34] LABS: Glucose,Whole Blood 289 mg/dL (75-99)
[2021-03-15 05:10] LABS: Glucose,Whole Blood 270 mg/dL (75-99)
[2021-03-15] MEDS: SODIUM CHLORIDE 0.9% 1,000 ML IV SCH (05:14)
[2021-03-15] MEDS: PIPERACILLIN-TAZOBACTAM 3.375 GM in SODIUM CHLORIDE 0.9% 100 ML IVPB SCH (05:14)
[2021-03-15] MEDS: LEVOTHYROXINE 50 MCG TAB PO SCH (05:39)
[2021-03-15 05:50] LABS: Anisocytosis Slight; Basophils % (A) 0 %; Eosinophils % (A) 0 %; HCT 30.9 % (34.0-46.0); HGB 8.8 gm/dL (11.4-16.0); Hypochromasia Marked; Lymphocytes # (A) 0.4 k/uL (1.0-4.8); Lymphocytes % (A) 2 %; MCH 28.2 pg (25.0-35.0); MCHC 28.4 g/dL (31.0-37.0); Macrocytosis Slight; Mean Platelet Volume 7.9; Monocytes # (A) 0.6 k/uL (0-1.0); Monocytes % (A) 3 %; Neutrophils # (A) 19.9 k/uL (1.3-7.7); Neutrophils % (A) 95 %; Platelet Count 300 k/uL (150-450); RBC 3.12 m/uL (3.80-5.40)
[2021-03-15 05:56] LABS: ALT 32 U/L (4-34); AST 122 U/L (14-36); African American GFR (CKD) >90 (>60 ml/min/1.73 sqM); Albumin 2.2 g/dL (3.5-5.0); Alkaline Phosphatase 97 U/L (38-126); Anion Gap 4 mmol/L; Blood Urea Nitrogen 33 mg/dL (7-17); Calcium 8.2 mg/dL (8.4-10.2); Carbon Dioxide 28 mmol/L (22-30); Chloride 115 mmol/L (98-107); Glucose 254 mg/dL (74-99); MCV 99.2 fL (80.0-100.0); Magnesium 2.1 mg/dL (1.6-2.3); Non-African American GFR(CKD) 86 (>60 ml/min/1.73 sqM); Phosphorus 6.2 mg/dL (2.5-4.5); Potassium 4.6 mmol/L (3.5-5.1); Sodium 147 mmol/L (137-145); Total Bilirubin 0.8 mg/dL (0.2-1.3); Total Protein 4.3 g/dL (6.3-8.2)
[2021-03-15] MEDS: PANTOPRAZOLE 40 MG TABLET PO SCH (07:00)
--- NOTE | 2021-03-15 07:55 | P.PN ---
Subjective Progress Note Date: 03/15/21 Principal diagnosis: Spontaneous large left sided hydropneumothorax, COVID-19 infection, acute on chronic respiratory failure, acute exacerbation of chronic obstructive pulmonary disease. 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 Esquivel The patient is currently sitting up in bed in the intensive care unit in no acute mild distress. She is not very responsive at the moment, remains on BiPAP at 100% Fio2. Received IV dilaudid last night for pain but no narcotics since. Went into Afib with RVR last night and placed on IV amiodarone, currently hypo tensive despite IV fluid bolus. Left pleural chest tube remains to continuous wall suction with intermittent air leak present. Continues on bronchodilators, IV solumedrol, Zosyn per pulmonology. WBC 21, hemoglobin 8.8, BUN 33, creatinine 0.51, AST 122, ALT 32. Parenteral nutrition started. Chest x-ray reviewed, significantly increased left-sided pneumothorax, cannot exclude small right pneumothorax as CXR isn't complete-not showing chest apex. Objective - Vital Signs Vital signs: Vital Signs Temp 97.9 F 03/15/21 04:00 Pulse 103 H 03/15/21 07:00 Resp 22 03/15/21 07:00 BP 77/59 03/15/21 07:00 Pulse Ox 96 03/15/21 07:00 Intake & Output 03/14/21 03/15/21 03/15/21 18:59 06:59 18:59 Intake Total 1239 3466 Output Total 540 325 Balance 699 3141 Weight 43.7 kg 46.6 kg Intake: IV 1239 3466 .9 1200 3000 Amiodarone 360 mg In 330 Dextrose 5% in Water 200 ml @ 1 MG/MIN 33.333 mls/ hr IV .Q6H ONE Rx#: [id number] Dextrose 5% in Water 100 100 ml @ 618 mls/hr IV .Q10M ONE with Amiodarone 150 mg Rx#:[id number] Pressure bag 39 36 Output: Chest Tube Drainage 65 5 Thora-Vent Left Upper Mid 65 5 -Clavicular Chest Urine 475 320 Other: Voiding Method Indwelling Catheter Indwelling Catheter # Voids 1 ABP, PAP, CO, CI - Last Documented Arterial Blood Pressure 93/56 - Exam CONSTITUTIONAL: Appears somewhat comfortable, no acute distress. Very cachectic and frail RESPIRATORY: Lungs sounds very diminished on the left. Respirations even, non- labored. Currently on BiPAP, FiO2 100%, 12/6, with oxygen saturation low 90s. CARDIOVASCULAR: S1, S2 present. Tachy, irregular rate and rhythm, atrial fibrillation on telemetry. Palpable peripheral pulses bilaterally. No edema present. No calf pain or tenderness noted. SCDs present. GASTROINTESTINAL: Abdomen soft, nontender, nondistended. Active bowel sounds present 4 quadrants. NPO due to BiPAP. GENITOURINARY: Arce present draining clear, yellow urine, output overnight 20 mL per hour INTEGUMENTARY: Skin is warm and dry. MUSKULOSKELETAL: Generalized weakness present PSYCHIATRIC: Very minimally responsive INVASIVE LINES AND TUBES: Left pleural chest tubes present and connected to wall suction, intermittent air leak present. Left pleural chest tube with 100 mL sanguinous drainage in the last 24 hours. - Allied health notes Allied health notes reviewed: nursing - Labs CBC & Chem 7: 03/15/21 05:00 03/15/21 05:00 Labs: Abnormal Lab Results - Last 24 Hours (Table) 03/13/21 03/14/21 03/14/21 Range/Units 09:08 05:10 08:02 WBC (3.8-10.6) k/uL RBC (3.80-5.40) m/uL Hgb (11.4-16.0) gm/dL Hct (34.0-46.0) % MCHC (31.0-37.0) g/dL RDW (11.5-15.5) % Neutrophils # (1.3-7.7) k/uL Lymphocytes # (1.0-4.8) k/uL Sodium (137-145) mmol/L Chloride (98-107) mmol/L BUN (7-17) mg/dL Glucose (74-99) mg/dL POC Glucose (mg/dL) 140 H (75-99) mg/dL Calcium (8.4-10.2) mg/dL Ionized Calcium Augie (4.5-5.3) mg/dL Phosphorus (2.5-4.5) mg/dL Ferritin 531.8 H (10.0-291.0) ng/mL AST (14-36) U/L Total Protein (6.3-8.2) g/dL Albumin (3.5-5.0) g/dL Crossmatch See Detail 03/14/21 03/14/21 03/15/21 Range/Units 12:02 17:58 01:32 WBC (3.8-10.6) k/uL RBC (3.80-5.40) m/uL Hgb (11.4-16.0) gm/dL Hct (34.0-46.0) % MCHC (31.0-37.0) g/dL RDW (11.5-15.5) % Neutrophils # (1.3-7.7) k/uL Lymphocytes # (1.0-4.8) k/uL Sodium (137-145) mmol/L Chloride (98-107) mmol/L BUN (7-17) mg/dL Glucose (74-99) mg/dL POC Glucose (mg/dL) 126 H 151 H 289 H (75-99) mg/dL Calcium (8.4-10.2) mg/dL Ionized Calcium Augie (4.5-5.3) mg/dL Phosphorus (2.5-4.5) mg/dL Ferritin (10.0-291.0) ng/mL AST (14-36) U/L Total Protein (6.3-8.2) g/dL Albumin (3.5-5.0) g/dL Crossmatch 03/15/21 03/15/21 03/15/21 Range/Units 05:00 05:00 05:00 WBC 21.0 H (3.8-10.6) k/uL RBC 3.12 L (3.80-5.40) m/uL Hgb 8.8 L (11.4-16.0) gm/dL Hct 30.9 L (34.0-46.0) % MCHC 28.4 L (31.0-37.0) g/dL RDW 17.0 H (11.5-15.5) % Neutrophils # 19.9 H (1.3-7.7) k/uL Lymphocytes # 0.4 L (1.0-4.8) k/uL Sodium 147 H (137-145) mmol/L Chloride 115 H (98-107) mmol/L BUN 33 H (7-17) mg/dL Glucose 254 H (74-99) mg/dL POC Glucose (mg/dL) (75-99) mg/dL Calcium 8.2 L (8.4-10.2) mg/dL Ionized Calcium Augie 5.7 H (4.5-5.3) mg/dL Phosphorus 6.2 H (2.5-4.5) mg/dL Ferritin (10.0-291.0) ng/mL AST 122 H (14-36) U/L Total Protein 4.3 L (6.3-8.2) g/dL Albumin 2.2 L (3.5-5.0) g/dL Crossmatch 03/15/21 Range/Units 05:07 WBC (3.8-10.6) k/uL RBC (3.80-5.40) m/uL Hgb (11.4-16.0) gm/dL Hct (34.0-46.0) % MCHC (31.0-37.0) g/dL RDW (11.5-15.5) % Neutrophils # (1.3-7.7) k/uL Lymphocytes # (1.0-4.8) k/uL Sodium (137-145) mmol/L Chloride (98-107) mmol/L BUN (7-17) mg/dL Glucose (74-99) mg/dL POC Glucose (mg/dL) 270 H (75-99) mg/dL Calcium (8.4-10.2) mg/dL Ionized Calcium Augie (4.5-5.3) mg/dL Phosphorus (2.5-4.5) mg/dL Ferritin (10.0-291.0) ng/mL AST (14-36) U/L Total Protein (6.3-8.2) g/dL Albumin (3.5-5.0) g/dL Crossmatch - Imaging and Cardiology Chest x-ray: image reviewed Assessment and Plan Assessment: 1. Spontaneous large left sided hydropneumothorax, status post placement of thoravent with subsequent removal, subsequent placement of left-sided pleural chest tube by Dr. Esquivel 2. COVID-19 infection, leukocytosis 3. Acute on chronic respiratory failure 4. Acute exacerbation of chronic obstructive pulmonary disease 5. History of hypertension 6. History of hyperlipidemia 7. chronic hypoxic respiratory failure maintained on home oxygen at 2 L 8. 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 Multiple and frequent falls from standing with chronic right sided rib fractures 10. Generalized weakness and debilitation 11. Chronic and ongoing tobacco dependence 12. Depression 13. Hypothyroid 14. Parkinson's disease 15. New onset atrial fibrillation 16. Hypotension Plan: 1. Continue left-sided chest tube to continuous wall suction, increased to -30 cm, air leak continuous, monitor for pneumothorax/air leak resolution. 2. Wean O2 as tolerated. BiPAP management, Covid management, steroids and antibiotics per pulmonology 3. Will monitor daily labs and x-rays 4. Management of the comorbidities per primary care service 5. Patient critically ill with very grave prognosis. Comfort care measures would be appropriate 6. Will continue to follow and make recommendations as necessary Time with Patient: Greater than 30
[2021-03-15] MEDS: ASPIRIN 81 MG PO SCH (08:00)
[2021-03-15] MEDS: BACLOFEN 10 MG TAB PO SCH (08:00)
[2021-03-15] MEDS: ASCORBIC ACID 500 MG TAB PO SCH (08:00)
[2021-03-15] MEDS: CHOLECALCIFEROL 25 MCG (1000 IU) TABLET PO SCH (08:01)
[2021-03-15] MEDS: CYANOCOBALAMIN 500 MCG TAB PO SCH (08:01)
[2021-03-15] MEDS: CARBIDOPA-LEVODOPA 25-100 MG 1 EACH TAB PO SCH (08:01)
[2021-03-15] MEDS: METOPROLOL TARTRATE 12.5 MG TAB PO SCH (08:01)
[2021-03-15] MEDS: CLOPIDOGREL 75 MG TAB PO SCH (08:01)
[2021-03-15] MEDS: NYSTATIN 100,000 UNIT/ML SUSP 500,000 UNIT/5 ML CUP PO SCH (08:02)
[2021-03-15] MEDS: ZINC SULFATE 220 MG CAP PO SCH (08:03)
[2021-03-15] MEDS: SYMBICORT 160-4.5 MCG INHALER INHALATION SCH (08:03)
[2021-03-15] MEDS: ALBUTEROL HFA INHALER INHALATION SCH ×2 (08:03→12:09)
[2021-03-15] MEDS: PRIMIDONE 50 MG TAB PO SCH (08:03)
--- NOTE | 2021-03-15 08:05 | P.CRDCN ---
History of Present Illness History of present illness: HISTORY OF PRESENTING ILLNESS Patient is a pleasant 80-year-old female with history of COPD, CVA, hypertension, hypothyroidism, depression who presented secondary to frequent falls, pain in the hips from falls, right-sided chest pain with cough and phlegm. She was found to have Covid pneumonia and has had prolonged hospitalization over the last 2 weeks. She currently is lethargic on BiPAP and recently made no code and therefore history is obtained per chart. She has had deterioration with worsening hypoxia requiring BiPAP, spontaneous pneumothorax status post chest tube placement with some hemothorax with copious amounts of blood requiring transfusion. Cardiology was asked to consult secondary to new onset of atrial fibrillation last night. She initially went into SVT with heart rates approximately 180 and then converted into afib. Patient originally was has been in normal sinus rhythm however when into A. fib and was placed on amiodarone drip with heart rates currently in the 90s to 110s. She was placed on amiodarone drip however blood pressures have been borderline, currently 84/55 not on any vasopressors and no rate control medications have been used. Patient additionally has home medications of aspirin and Plavix however has not been obtaining the last few days secondary to no by mouth oral intake. REVIEW OF SYSTEMS At the time of my exam: Patient lethargic and not responding and therefore no ROS obtained. PHYSICAL EXAMINATION Vital signs reviewed. CONSTITUTIONAL: No apparent distress, lethargic on BIPAP, frail, ill appearing, +left chest tube in place HEENT: Head is normocephalic. Pupils are equal, round. Sclerae anicteric. Mucous membranes of the mouth are moist. No JVD. No carotid bruit. CHEST EXAMINATION: Lungs decreased breath sounds bilaterally HEART EXAMINATION: Irregular rate and rhythm. S1, S2 heard. No murmurs, gallops or rub. ABDOMEN: Soft, nontender. Positive bowel sounds. EXTREMITIES: 2+ peripheral pulses, no lower extremity edema and no calf tenderness. NEUROLOGIC EXAMINATION: Patient is lethargic and not following commands ASSESSMENT 1. Paroxysmal atrial fibrillation, new onset 2. Acute on chronic respiratory failure secondary to COVID-19 pneumonia 3. Acute blood loss anemia, pneumothorax status post blood transfusion 4. History of stroke 5. Hypotension 6. History of COPD on home oxygen 7. History of Stroke 8. SVT PLAN Patient appears to be continuing to deteriorate. Unclear why she is on aspirin as well as Plavix, possibly for history of stroke. She has not been receiving these as she has been unable to tolerate by mouth medications recently. She additionally has recent hemothorax requiring blood transfusions. At this time patient is not a good anticoagulation candidate and hold any anticoagulation. Continue with amiodarone drip. Check 2-D echo. Patient appears to be deteriorating and prognosis grave. Past Medical History Past Medical History: COPD, CVA/TIA, Hyperlipidemia, Hypertension, Musculoskeletal Disorder, Neurologic Disorder, Osteoarthritis (OA), Pneumonia, Renal Disease, Respiratory Disorder, Rheumatoid Arthritis (RA), Thyroid Disorder Additional Past Medical History / Comment(s): CVAs with L sided weakness, TIAs, home oxygen at 2L/NC ATC, Parkinson's disease, pt states has had irregular heart beat, murmur, diverticular disease, born with one functioning kidney, migraines, bilateral feet edema. History of Any Multi-Drug Resistant Organisms: None Reported Past Surgical History: Adenoidectomy, Appendectomy, Tonsillectomy, Tubal Ligation Additional Past Surgical History / Comment(s): Nasal septal deviation corrected with surgery, colonoscopy. Past Anesthesia/Blood Transfusion Reactions: No Reported Reaction Additional Past Anesthesia/Blood Transfusion Reaction / Comment(s): Pt has clausterphobia. Smoking Status: Current every day smoker - Past Family History Mother Family Medical History: Pneumonia Father Family Medical History: Myocardial Infarction ([place]) Additional Family Medical History / Comment(s): Father of a [place] in his 40s. Medications and Allergies Home Medications Medication Instructions Recorded Confirmed Type Clopidogrel Bisulfate [Plavix] 75 mg PO DAILY 01/29/15 02/28/21 History HYDROcodone/APAP 10-325MG [[place] 1 tab PO QID PRN 01/29/15 02/28/21 History 10-325] hydroCHLOROthiazide 25 mg PO DAILY 08/10/18 02/28/21 History Primidone [Mysoline] 50 mg PO TID 01/26/19 02/28/21 History Baclofen [Lioresal] 10 mg PO TID 07/29/19 02/28/21 History Aspirin EC [Ecotrin Low Dose] 81 mg PO DAILY 02/28/21 02/28/21 History Carbidopa-Levodopa 25-100 mg 1 tab PO TID 02/28/21 02/28/21 History [Sinemet 25-100] Fluticasone/Vilanterol [Breo 1 puff INHALATION RT-DAILY 02/28/21 02/28/21 History Ellipta 200-25 Mcg INH] Furosemide [Lasix] 40 mg PO DAILY PRN 02/28/21 02/28/21 History Ipratropium-Albuterol Nebulize 3 ml INHALATION RT-QID PRN 02/28/21 02/28/21 History [Duoneb 0.5 mg-3 mg/3 ml Soln] Levothyroxine Sodium [Synthroid] 50 mcg PO DAILY 02/28/21 02/28/21 History Metoprolol Tartrate [Lopressor] 12.5 mg PO BID 02/28/21 02/28/21 History Potassium Chloride ER [K-Dur 10] 10 meq PO DAILY 02/28/21 02/28/21 History Allergies Allergy/AdvReac Type Severity Reaction Status Date / Time cimetidine [From Tagamet] Allergy Rash/Hives Verified 02/28/21 23:14 cimetidine HCl [From Tagamet] Allergy Rash/Hives Verified 02/28/21 23:14 prednisone Allergy Swelling Verified 02/28/21 23:14 sulfamethoxazole Allergy Nausea & Verified 02/28/21 23:14 [From Bactrim] Vomiting trimethoprim [From Bactrim] Allergy Nausea & Verified 02/28/21 23:14 Vomiting Physical Exam Vitals: Vital Signs Temp Pulse Resp BP Pulse Ox 03/15/21 07:00 103 H 22 77/59 96 03/15/21 06:00 95 24 82/57 93 L 03/15/21 05:00 89 23 89/59 92 L 03/15/21 04:00 97.9 F 116 H 23 84/56 90 L 03/15/21 03:00 109 H 24 83/56 90 L 03/15/21 02:00 110 H 22 85 L 03/15/21 01:00 86 20 90 L 03/15/21 00:00 97.9 F 117 H 21 81/61 78 L 03/14/21 23:00 130 H 19 81/61 88 L 03/14/21 22:00 172 H 17 124/72 89 L 03/14/21 21:00 102 H 24 125/82 93 L 03/14/21 20:00 109 H 22 133/63 95 03/14/21 19:00 70 16 121/56 97 03/14/21 18:00 60 15 120/67 97 03/14/21 17:00 89 19 111/63 92 L 03/14/21 16:00 97.6 F 76 15 132/70 92 L 03/14/21 15:00 75 19 139/66 96 03/14/21 14:00 71 14 132/72 96 03/14/21 13:00 71 14 125/70 94 L 03/14/21 12:00 97.8 F 73 13 118/68 94 L 03/14/21 11:00 70 13 107/65 93 L 03/14/21 10:00 75 13 126/83 92 L 03/14/21 09:00 80 21 133/71 95 03/14/21 08:00 97.6 F 75 19 110/69 95 Intake and Output 03/14/21 03/15/21 03/15/21 22:59 06:59 14:59 Intake Total 957 3024 Output Total 360 190 Balance 597 2834 Intake: IV 957 3024 .9 800 2700 Amiodarone 360 mg In 33 297 Dextrose 5% in Water 200 ml @ 1 MG/MIN 33.333 mls/ hr IV .Q6H ONE Rx#: [id number] Dextrose 5% in Water 100 100 ml @ 618 mls/hr IV .Q10M ONE with Amiodarone 150 mg Rx#:[id number] Pressure bag 24 27 Output: Chest Tube Drainage 20 Thora-Vent Left Upper Mid 20 -Clavicular Chest Urine 340 190 Other: Voiding Method Indwelling Catheter Indwelling Catheter Weight 46.6 kg ABP, PAP, CO, CI - Last 8 Hours Arterial Blood Pressure 93/56 Arterial Blood Pressure 78/48 Arterial Blood Pressure 72/47 Arterial Blood Pressure 80/50 Arterial Blood Pressure 79/46 Arterial Blood Pressure 80/45 Arterial Blood Pressure 111/48 Arterial Blood Pressure 79/44 Results 03/15/21 05:00 03/15/21 05:00 Cardiac Enzymes 03/15/21 Range/Units 05:00 AST 122 H (14-36) U/L Lipids 03/14/21 Range/Units 11:59 Triglycerides 112 (<150) mg/dL CBC 03/15/21 Range/Units 05:00 WBC 21.0 H (3.8-10.6) k/uL RBC 3.12 L (3.80-5.40) m/uL Hgb 8.8 L (11.4-16.0) gm/dL Hct 30.9 L (34.0-46.0) % Plt Count 300 (150-450) k/uL Comprehensive Metabolic Panel 03/15/21 Range/Units 05:00 Sodium 147 H (137-145) mmol/L Potassium 4.6 (3.5-5.1) mmol/L Chloride 115 H (98-107) mmol/L Carbon Dioxide 28 (22-30) mmol/L BUN 33 H (7-17) mg/dL Creatinine 0.59 (0.52-1.04) mg/dL Glucose 254 H (74-99) mg/dL Calcium 8.2 L (8.4-10.2) mg/dL AST 122 H (14-36) U/L ALT 32 (4-34) U/L Alkaline Phosphatase 97 (38-126) U/L Total Protein 4.3 L (6.3-8.2) g/dL Albumin 2.2 L (3.5-5.0) g/dL Current Medications Generic Name Dose Route Start Last Admin Trade Name Freq PRN Reason Stop Dose Admin Acetaminophen 650 mg 02/28/21 22:32 03/12/21 02:10 Acetaminophen Tab 325 Mg Tab PO 650 mg Q6HR PRN Administration Mild Pain or Fever > 100.5 Hydrocodone Bitart/Acetaminophen 1 each 03/12/21 13:58 03/13/21 14:51 Hydrocodone/Apap 5-325mg 1 Each Tab PO 1 each Q6HR PRN Administration Pain Albuterol Sulfate 2 puff 03/01/21 20:00 03/14/21 19:42 Albuterol Hfa Inhaler INHALATION 2 puff RT-QID NERI Administration Albuterol Sulfate 2 puff 03/01/21 17:35 03/05/21 19:54 Albuterol Hfa Inhaler INHALATION 2 puff RT-QID PRN Administration Shortness Of Breath Or Wheezing Ascorbic Acid 1,000 mg 03/01/21 12:30 03/14/21 09:00 Ascorbic Acid 500 Mg Tab PO Not Given DAILY NERI Aspirin 81 mg 03/02/21 09:00 03/14/21 09:00 Aspirin 81 Mg PO Not Given DAILY NERI Atorvastatin Calcium 10 mg 03/06/21 21:00 03/14/21 21:10 Atorvastatin 10 Mg Tab PO 10 mg HS NERI Administration Baclofen 10 mg 03/01/21 16:00 03/14/21 22:27 Baclofen 10 Mg Tab PO Not Given TID [facility] Budesonide/Formoterol Fumarate 2 puff 03/01/21 20:00 03/14/21 19:42 Symbicort 160-4.5 Mcg Inhaler INHALATION 2 puff RT-BID NERI Administration Carbidopa/Levodopa 1 each 03/01/21 16:00 03/14/21 22:28 Carbidopa-Levodopa 25-100 Mg 1 Each Tab PO Not Given TID [facility] Cholecalciferol 50 mcg 03/01/21 12:30 03/14/21 09:00 Cholecalciferol 25 Mcg (1000 Iu) Tablet PO Not Given DAILY [facility] Clopidogrel Bisulfate 75 mg 03/02/21 09:00 03/14/21 09:00 Clopidogrel 75 Mg Tab PO Not Given DAILY [facility] Cyanocobalamin 500 mcg 03/02/21 09:00 03/14/21 09:00 Cyanocobalamin 500 Mcg Tab PO Not Given DAILY [facility] Hydromorphone HCl 1 mg 03/13/21 12:53 03/14/21 21:05 Hydromorphone 1 Mg/Ml 1 Ml Syringe IVP 1 mg Q3HR PRN Administration Pain Piperacillin Sod/Tazobactam 100 mls @ 25 mls/hr 03/09/21 14:00 03/15/21 05:14 Sod 3.375 gm/ Sodium Chloride IVPB 25 mls/hr Q8H NERI Administration Sodium Chloride 1,000 mls @ 100 mls/hr 03/14/21 09:00 03/15/21 05:14 Saline 0.9% IV 100 mls/hr .Q10H NERI Administration Parenteral Vitamin Supplement 1,011 mls @ 30 mls/hr 03/14/21 14:00 03/14/21 14:09 10 ml/ Zinc/Copper/Manganese/ IV 03/15/21 13:59 30 mls/hr Selenium 1 ml/ Amino Ac/ .Q24H NERI Administration Electrol/Dextrose/Calcium Fat Emulsion Intravenous 250 250 mls @ 21 mls/hr 03/15/21 09:00 ml/ IV Solution IV MoWeFr [facility] Parenteral Vitamin Supplement 1,011 mls @ 45 mls/hr 03/15/21 14:00 10 ml/ Zinc/Copper/Manganese/ IV Selenium 1 ml/ Amino Ac/ .[id number] NERI Electrol/Dextrose/Calcium Amiodarone HCl 450 mg/ 250 mls @ 16.667 mls/hr 03/14/21 22:00 03/15/21 05:13 Dextrose/Water IV 03/15/21 15:59 0.5 mg/min .Q15H NERI 16.667 mls/hr Administration Protocol 0.5 MG/MIN Levothyroxine Sodium 50 mcg 03/02/21 06:30 03/15/21 05:39 Levothyroxine 50 Mcg Tab PO Not Given DAILY@0630 [facility] Methylprednisolone Sodium Succinate 40 mg 03/09/21 16:00 03/14/21 23:50 Methylprednisolone Sod Succi 40 Mg/Ml 1 Ml Vial IV 40 mg Q8HR NERI Administration Metoprolol Tartrate 12.5 mg 03/01/21 21:00 03/14/21 22:27 Metoprolol Tartrate 12.5 Mg Tab PO Not Given BID NERI Miscellaneous Information 1 each 03/02/21 13:21 Magnesium Replacement Protocol 1 Each Misc MISCELLANE DAILY PRN Per Protocol Protocol Miscellaneous Information 1 each 03/06/21 12:01 Potassium Replacement Protocol 1 Each Misc MISCELLANE DAILY PRN Per Protocol Protocol Naloxone HCl 0.2 mg 02/28/21 22:32 Naloxone 0.4 Mg/Ml 1 Ml Vial IV Q2M PRN Opioid Reversal Nystatin 500,000 unit 03/06/21 13:00 03/14/21 22:25 Nystatin 100,000 Unit/Ml Susp 500,000 Unit/5 Ml Cup PO Not Given QID NERI Pantoprazole Sodium 40 mg 03/01/21 12:30 03/15/21 07:00 Pantoprazole 40 Mg Tablet PO Not Given [id number]-[id number] NERI Primidone 50 mg 03/01/21 16:00 03/14/21 22:27 Primidone 50 Mg Tab PO Not Given TID NERI Zinc Sulfate 220 mg 03/01/21 12:30 03/14/21 09:01 Zinc Sulfate 220 Mg Cap PO Not Given DAILY NERI Intake and Output 03/14/21 03/15/21 03/15/21 22:59 06:59 14:59 Intake Total 957 3024 Output Total 360 190 Balance 597 2834 Intake: IV 957 3024 .9 800 2700 Amiodarone 360 mg In 33 297 Dextrose 5% in Water 200 ml @ 1 MG/MIN 33.333 mls/ hr IV .Q6H ONE Rx#: [id number] Dextrose 5% in Water 100 100 ml @ 618 mls/hr IV .Q10M ONE with Amiodarone 150 mg Rx#:[id number] Pressure bag 24 27 Output: Chest Tube Drainage 20 Thora-Vent Left Upper Mid 20 -Clavicular Chest Urine 340 190 Other: Voiding Method Indwelling Catheter Indwelling Catheter Weight 46.6 kg 03/15/21 05:00 03/15/21 05:00
--- NOTE | 2021-03-15 08:12 | XR ---
EXAMINATION TYPE: XR chest 1V portable DATE OF EXAM: 03/15/2021 COMPARISON: NONE HISTORY: Follow-up pneumothorax FINDINGS: Significant interval progression of left-sided pneumothorax. Please note the lung apices are cut off the [id number] limiting examination. Pneumothorax is estimated at 30-40%. Small right apical pneum othorax is noted and may be unchanged although difficult to state with certainty. Left lung atelectasis, infiltrate and/or effusion. Several right-sided rib fractures are noted. Stable appearance of the cardio-mediastinal structures at this time. Pleural effusion unchanged. IMPRESSION: 1. Significant interval progression of left-sided pneumothorax. Examination is limited. A [place] critical message alert has been initiated for Kyleigh Garcia MD via the [employer] System on 03/15/2021 8:09 AM. This message alert has been sent to Kyleigh Garcia MD via the preferences provided by the clinician for the receipt of Radiology Critical Findings. Message ID [id number].
[2021-03-15] MEDS: methylPREDNISolone SOD SUCCI 40 MG/ML 1 ML VIAL IV SCH (08:43)
[2021-03-15] MEDS ORDERED: FAT EMULSION 20% 250 ML in EMPTY BAG 1 BAG IV SCH (09:00)
[2021-03-15 09:17] VITALS: TEMP 96.6
[2021-03-15 10:06] VITALS: BP 87/60; PULSE 98; RESP 26
[2021-03-15 10:59] VITALS: BMI 16.0
[2021-03-15] MEDS ORDERED: MORPHINE SULFATE 4 MG/ML SYRINGE IV PRN (11:39)
[2021-03-15] MEDS ORDERED: ARTIFICIAL TEARS-HYPROMELLOSE DROPS 15 ML BTL BOTH EYES PRN (11:39)
[2021-03-15] MEDS ORDERED: LORazepam 2 MG/ML INJ IV PRN (11:39)
[2021-03-15] MEDS ORDERED: MORPHINE SULFATE (100 MG/2 ML) 100 MG in SODIUM CHLORIDE 0.9% 100 ML IV SCH (11:45)
--- NOTE | 2021-03-15 12:29 | ECHOF ---
Referral Reason:re: LV function, COVID MEASUREMENTS -------- HEIGHT: 170.2 cm WEIGHT: 46.3 kg BP: RVIDd: 2.7 cm (< 3.3) IVSd: 1.1 cm (0.6 - 1.1) LVIDd: 4.1 cm (3.9 - 5.3) LVPWd: 1.0 cm (0.6 - 1.1) IVSs: 1.5 cm LVIDs: 2.9 cm LVPWs: 1.4 cm LA Diam: 3.0 cm (2.7 - 3.8) Ao Diam: 2.9 cm (2.0 - 3.7) LA Diam: 3.5 cm (2.7 - 3.8) MV EXCURSION: 19.069 mm (> 18.000) MV EF SLOPE: 165 mm/s (70 - 150) RAP: 10.00 mmHg RVSP: 38.43 mmHg FINDINGS -------- Sinus rhythm. Pt is Covid positive. LV size, wall thickness and systolic function are normal, with an EF greater than 55%. The left linda tricular size is normal. Overall left ventricular systolic function is mildly impaired with, an EF between 45 - 50 %. The right ventricle is normal in size. The left atrial size is normal. The right atrial size is normal. There is mild aortic valve sclerosis. There is no evidence of aortic regurgitation. Moderate mitral regurgitation is present. Moderate tricuspid regurgitation present. There is no evidence of pulmonary hypertension. The rig ht ventricular systolic pressure, as measured by Doppler, is 38.43mmHg. There is no pulmonic regurgitation present. The aortic root size is normal. There is no pericardial effusion. CONCLUSIONS -------- 1. Pt is Covid positive. 2. LV size, wall thickness and systolic function are normal, with an EF greater than 55%. 3. The left ventricular size is normal. 4. Overall left ventricular systolic function is mildly impaired with, an EF between 45 - 50 %. 5. The right ventricle is normal in size. 6. The left atrial size is normal. 7. The right atrial size is normal. 8. There is mild aortic valve sclerosis. 9. Moderate mitral regurgitation is present. 10. Moderate tricuspid regurgitation present. 11. There is no evidence of pulmonary hypertension. 12. The right ventricular systolic pressure, as measured by Doppler, is 38.43mmHg. 13. The aortic root size is normal. 14. There is no pericardial effusion. TREE TOPPER: Pat Padilla RDCS
--- NOTE | 2021-03-15 12:34 | P.PN ---
Subjective Progress Note Date: 03/15/21 Principal diagnosis: Acute spontaneous left sided hemopneumothorax., Acute on chronic hypoxic for failure secondary to COVID-19 pneumonia and acute COPD exacerbation. 80-year-old female, who presents to the emergency department, brought in by EMS, on February 28. She apparently complained of weakness, and fatigue, with multiple falls. She apparently fell once in the bathroom, and then once subsequent to that while sitting on the bed. She apparently came into the emergency room complaining of diffuse aches and pains including right rib pain, and some issues with her right foot. The patient apparently had a stroke in 2004, and has left- sided weakness as a residual. The patient also has a history of chronic obstructive pulmonary disease, and sees our nurse practitioner in the office for that. She apparently did test positive for coronavirus, and hasn't been feeling well for at least 2 weeks. She has a history of COPD, stroke, hypothyroidism, diverticular disease, depression, hypertension, and nasal septal deviation. She does continue to smoke on a daily basis. Lab data includes a white count of 8.1, hemoglobin 11, hematocrit 31.9, platelet count 339,000. Sodium was 126, potassium 3, chloride 90, CO2 30, anion gap 6, BUN 20, creatinine 0.46. Brain CT only showed cerebral atrophy, nothing acute. Chest x-ray shows right upper lobe, and right lower lobe pneumonia, which is new. There is also a right-sided rib fracture. X-rays of the right and left knee showed some chronic changes, nothing acute and certainly no fractures. Hip x-rays were negative as well. Progress note dated 03/02/2021. 80-year-old female, that we saw in the emergency department yesterday. She came with complaints of weakness, fatigue, she had multiple falls. X-rays I believe are all negative, although apparently she didn't have a right-sided rib fracture. She also may have a right upper lobe and right lower lobe pneumonia, which may relate to aspiration. Currently, the patient appears to be much more alert and awake today. She is on nasal O2 at 4 L. She is getting saline at 75 mL an hour. White count was 3, hemoglobin 11.7, hematocrit 35.9, platelet count was 302,000. On 03/03/2021 patient seen in follow-up on medical floor, she is currently on 8 L of oxygen pulse ox of 91%, is very congested, her chest is rattly. She is weak, she states she is able to bring up some phlegm which is usually white or light yellow, trace chest x-ray shows patchy bilateral lung infiltrates. Today's labs have been noted, white blood cell count is 5.8, hemoglobin is 11.8, d-dimer is 2.67, sodium is improving, up to 134, rest of electrolytes were within normal limits, BUN is 11 creatinine 0.48. CRP is 49.6, LDH is 461. Pro- calcitonin level is 0.32. Patient continues on inhalers, she continues on Zosyn, IV hydration with 0.9 normal saline at a rate of 75 ML per hour, and Decadron 6 mg daily in addition to vitamins. On 03/12/2021 patient seen in follow-up on medical surgical floor, she appears quite frail and weak, she is resting in bed, she states her breathing has not worsened but she still remains congested, and patient has not been able to clear much of her phlegm. She is currently on 13 L of oxygen pulse ox is 96%, we dropped the FiO2 down to 10 L, and she will be rechecked in the 20-30 minutes for any worsening hypoxia, she is afebrile, hemodynamically stable, she remains on IV Solu-Medrol, and empiric abt the form of Levaquin and Zosyn, Solu-Medrol 20 mg every 8 hours, she is on Symbicort, no new labs today, no new chest x- rays. On 03/13/2021 received a phone call from our radiology to notify of a large left-sided pneumothorax related to be at 60%, and small to moderate left basilar pleural fluid collection and associated left lung atelectasis. As such emergent transfer to the intensive care was ordered, patient is on 12 L of oxygen, she is desaturating, she is increasingly more short of breath, tachypneic, and #13 thoravent was emergently placed left upper anterior chest and initially there was bubbling in the Pleur-evac however the lung failed to reexpand, and patient was transferred to the intensive care unit where the pleural VAC was removed and #28 Doucette chest tube was placed in the left chest, and there was a large amount of dark blood that drained out of the chest tube, appropximmately 500 mL. Patient had been on prophylactic doses of Lovenox at 40 mg once daily for the last several days, repeat blood work today is pending, status post CBC is ordered and pending at this time, patient has no running IVs running at this point, current blood pressure is 100/56 with a map of 75, she is in sinus mechanism with a rate of 80 BPM, her current saturation is 85% on 15 L high flow. And patient will be placed on BiPAP support with pressures of 12/6 and FiO2 100%. Repeat chest x-ray is pending post insertion of left-sided chest tube. Patient is awake, she is following commands, she is having a lot of discomfort in her left chest post insertion of 2 chest tubes, pain medications were administered in the form of morphine, and patient was locally anesthetized using the 1% lidocaine to insertion of chest tubes. We reached out to the patient's son, Clarence, next of kin to notify him of patient's deteriorating clinical condition and notify him of the events of this morning and transferred to the intensive care unit. Patient is quite frail, debilitated at baseline, with multiple comorbidities, and advanced COPD on home oxygen. Patient's son made a clear that no aggressive heroic resuscitation is desired and neither is life-support. He would like to continue supportively treating the patientat this time. And the visitation will be arranged for the patient's son and her daughter to come and see the patient sometime today according to the hospital visitation policy. Patient was reevaluated today on 03/14/2021, remains on BiPAP, with IPAP of 12 and EPAP of 6 FiO2 of 60%, O2 saturation is in the mid 90s. Patient seems to be almost getting BiPAP dependent. Chest x-ray showed complete reexpansion of the left lung, small tiny apical right-sided pneumothorax is noted. Bilateral infiltrates are also noted. Patient is sitting up in bed, remains in the ICU, does complain of shortness of breath, but no pain. Chest tube remains on continuous wall suction with continuous air leak noted. Remains on bronchodilators, Medrol, Zosyn, and she received a unit of packed RBCs after we noted that the patient had a relatively good sized left-sided hemothorax. Today's labs showed a hemoglobin of 9.3 WBC count is 9.9. D-dimer is 1.65 ABG from yesterday on BiPAP showed a pO2 of 113 pCO2 of 55 pH of 7.35 but this was on 80% FiO2 and IPAP of 12 and EPAP of 6 Electrolytesenc normal renal profile is normal. Patient was reevaluated today on 03/15/2021, remains on BiPAP with IPAP of 12 and EPAP of 6. FiO2 at 60%. Patient is basically unresponsive to painful stimuli, not responsive to verbal stimuli, and her chest x-ray today showed worsening left-sided pneumothorax in spite of the chest tube in place. Patient had an episode of A. fib with RVR last night, placed on IV amiodarone, she developed h ypotension requiring fluid boluses. Left-sided chest tube remains on continuous suction. Continue to have early, and there is no evidence of large left-sided pneumothorax in spite of the chest tube in place. There is also the possibility of a small tiny right-sided pneumothorax, not showing well on the chest x-ray today at any rate after evaluating the patient, I called her son Semaj and discussed his mother's condition with him over the phone, and explained to him that his motor is doing well, and I'm strongly recommending comfort care measures. Patient is already DO NOT RESUSCITATE CODE STATUS, and now she has multiple medical comorbidities, and the chances of recovering from this illness is extremely poor, and the chances of having a decent quality of life is extremely nil. Son agreed with me that family has been discussing the issue of comfort care measures, and they're agreeable they will proceed with this later today. Patient is now on IV fluid at 100 mL per hour, amiodarone, TPN, lipids. WBC count is 21 hemoglobin is 8.8, sodium is 1 4711+ and normal. Objective - Vital Signs Vital signs: Vital Signs Temp 96.6 F L 03/15/21 08:00 Pulse 98 03/15/21 10:00 Resp 26 H 03/15/21 10:00 BP 87/60 03/15/21 10:00 Pulse Ox 100 03/15/21 10:00 Intake & Output 03/14/21 03/15/21 03/15/21 18:59 06:59 18:59 Intake Total 1239 3466 539.1 Output Total 540 325 210 Balance 699 3141 329.1 Weight 43.7 kg 46.6 kg 46.6 kg Intake: IV 1239 3466 539.1 .9 1200 3000 Amiodarone 360 mg In 330 Dextrose 5% in Water 200 ml @ 1 MG/MIN 33.333 mls/ hr IV .Q6H ONE Rx#: [id number] Amiodarone 450 mg In 50.1 Dextrose 5% in Water 250 ml @ 0.5 MG/MIN 16.667 mls/hr IV .Q15H [facility] Rx#: [id number] Dextrose 5% in Water 100 100 ml @ 618 mls/hr IV .Q10M ONE with Amiodarone 150 mg Rx#:[id number] Fat Emulsion 20% 250 ml 42 In Empty Bag 1 bag @ 21 mls/hr IV MoWeFr [facility] Rx#: [id number] Mvi, Adult No.4 with Vit 135 K 10 ml Trace (Conc-1Ml/ Dose) 1 ml Potassium Acetate 14 meq Magnesium Sulfate gm 1 gm In Amino Acid 4.25%-D10w 1,000 ml @ 45 mls/hr IV .[id number] [facility] Rx#:[id number] Pressure bag 39 36 12 Sodium Chloride 0.9% 1, 300 000 ml @ 100 mls/hr IV . Q10H [facility] Rx#:[id number] Output: Chest Tube Drainage 65 5 Thora-Vent Left Upper Mid 65 5 -Clavicular Chest Urine 475 320 210 Other: Voiding Method Indwelling Catheter Indwelling Catheter Indwelling Catheter # Voids 1 ABP, PAP, CO, CI - Last Documented Arterial Blood Pressure 97/54 - Exam CONSTITUTIONAL: Revealed an 80-year-old female, looks frail and cachectic, unresponsive on BiPAP RESPIRATORY: Symmetrical chest expansion, crackles at the bases, no rhonchi no wheezes, diminished breath sound bilaterally left more so than right. CARDIOVASCULAR: Normal S1 and S2, no S3 gallop. GASTROINTESTINAL: Soft nontender no megaly no rebound no guarding. Lymphatics: No cervical or supraclavicular lymphadenopathy. HEENT: PERRLA, EOMI, anicteric, no neck masses, no JVD. INTEGUMENTARY: No rashes. NEUROLOGIC: Patient is unresponsive to any verbal or deep painful stimuli today. MUSKULOSKELETAL: Could not assess. PSYCHIATRIC: Unresponsive to stimuli. - Labs CBC & Chem 7: 03/15/21 05:00 03/15/21 05:00 Labs: Abnormal Lab Results - Last 24 Hours (Table) 03/13/21 03/14/21 03/15/21 Range/Units 09:08 17:58 01:32 WBC (3.8-10.6) k/uL RBC (3.80-5.40) m/uL Hgb (11.4-16.0) gm/dL Hct (34.0-46.0) % MCHC (31.0-37.0) g/dL RDW (11.5-15.5) % Neutrophils # (1.3-7.7) k/uL Lymphocytes # (1.0-4.8) k/uL Sodium (137-145) mmol/L Chloride (98-107) mmol/L BUN (7-17) mg/dL Glucose (74-99) mg/dL POC Glucose (mg/dL) 151 H 289 H (75-99) mg/dL Calcium (8.4-10.2) mg/dL Ionized Calcium Augie (4.5-5.3) mg/dL Phosphorus (2.5-4.5) mg/dL AST (14-36) U/L Total Protein (6.3-8.2) g/dL Albumin (3.5-5.0) g/dL Crossmatch See Detail 03/15/21 03/15/21 03/15/21 Range/Units 05:00 05:00 05:00 WBC 21.0 H (3.8-10.6) k/uL RBC 3.12 L (3.80-5.40) m/uL Hgb 8.8 L (11.4-16.0) gm/dL Hct 30.9 L (34.0-46.0) % MCHC 28.4 L (31.0-37.0) g/dL RDW 17.0 H (11.5-15.5) % Neutrophils # 19.9 H (1.3-7.7) k/uL Lymphocytes # 0.4 L (1.0-4.8) k/uL Sodium 147 H (137-145) mmol/L Chloride 115 H (98-107) mmol/L BUN 33 H (7-17) mg/dL Glucose 254 H (74-99) mg/dL POC Glucose (mg/dL) (75-99) mg/dL Calcium 8.2 L (8.4-10.2) mg/dL Ionized Calcium Augie 5.7 H (4.5-5.3) mg/dL Phosphorus 6.2 H (2.5-4.5) mg/dL AST 122 H (14-36) U/L Total Protein 4.3 L (6.3-8.2) g/dL Albumin 2.2 L (3.5-5.0) g/dL Crossmatch 03/15/21 Range/Units 05:07 WBC (3.8-10.6) k/uL RBC (3.80-5.40) m/uL Hgb (11.4-16.0) gm/dL Hct (34.0-46.0) % MCHC (31.0-37.0) g/dL RDW (11.5-15.5) % Neutrophils # (1.3-7.7) k/uL Lymphocytes # (1.0-4.8) k/uL Sodium (137-145) mmol/L Chloride (98-107) mmol/L BUN (7-17) mg/dL Glucose (74-99) mg/dL POC Glucose (mg/dL) 270 H (75-99) mg/dL Calcium (8.4-10.2) mg/dL Ionized Calcium Augie (4.5-5.3) mg/dL Phosphorus (2.5-4.5) mg/dL AST (14-36) U/L Total Protein (6.3-8.2) g/dL Albumin (3.5-5.0) g/dL Crossmatch Assessment and Plan Assessment: Impression: Acute on chronic hypoxic failure secondary to COVID-19 infection and acute COPD exacerbation. As well as spontaneous left sided hemopneumothorax. Requiring chest tube placement on the left side. COVID-19 infection/pneumonitis. Acute exacerbation of COPD. Benign essential hypertension. Dyslipidemia. Chronic hypoxic respiratory failure secondary to COPD maintained on 2 L nasal cannula. History of CVA with chronic left-sided weakness. Medical debility. Ongoing tobacco dependence. Hypothyroidism. History of Parkinson's disease. History of depression. Acute toxic metabolic encephalopathy, multifactorial. Recommendation: Discussed her clinical condition with the son today, and the son as well as the rest of the family members according to OMR inclined to proceed with comfort care measures. Continue chest tube to suction. Continue the COVID-19 cocktail. Continue BiPAP and titrate FiO2 accordingly. Continue steroids and antibiotics. We'll likely go to comfort care measures later this afternoon. Patient remains critically ill. Critical care time is over 30 minutes Time with Patient: Greater than 30
[2021-03-15] MEDS ORDERED: [UNRECOGNIZED DRUG - REMARK] IV SCH ×5 (14:00)
[2021-03-15] MEDS ORDERED: MVI, ADULT NO.4 WITH VIT K 10 ML, TRACE (CONC-1ML/DOSE) 1 ML in AMINO ACID 4.25%-D10W+L... IV SCH ×3 (14:00)
--- NOTE | 2021-03-15 14:44 | P.PN ---
Subjective Progress Note Date: 03/15/21 I am assuming care of this patient as of 03/06/2021 at 8 AM. I was out of town and Dr. Aguilera was covering for me. HMP done by Dr. Camejo on 03/01/2021 Elicia Bradshaw, is an 80-year-old female admitted to [facility] through emergency room after presenting with symptoms of COVID- 19 pneumonia. Patient was having frequent falls at home along with chest pain and coughing for 3 days prior to hospitalization patient has a past medical history of COPD, CVA, hypertension, hypothyroidism, depression, diverticulitis, Parkinson's disease, COPD maintained on home O2 and nicotine dependence. Patient was positive COVID-19 chest x-ray performed in ER showing right upper lobe and right lower lobe pneumonia right-sided rib fracture. Patient was admitted to observation unit. Pulmonary and neurology services were consulted. On 03/06/2021 patient remains in the observation unit. Patient's alert and oriented 3 area patient remains on IV Solu-Medrol, IV Zosyn, vitamin C, zinc, vitamin D. She remains on high flow oxygen at 15 L. Pulmonary services are following. Patient was evaluated by neurology services due to increased falls and Parkinson's disease. No changes to Parkinson's medication. At this time patient denies chest pain. Patient denies nausea vomiting or diarrhea. Patient denies any urinary burning or frequency area potassium 3.3 replace per protocol. Morphine added for increase pain. On 03/07/2021 patient was seen and examined on the medical floor she is alert and oriented 3 in no apparent distress she feels better he has less cough and shortness of breath currently she is maintained on oxygen 10 L via high flow nasal cannula there is no fever or chills no headache or dizziness no chest pain no shortness of breath at rest she has shortness of breath with any activity there is no nausea or vomiting no abdominal pain no diarrhea and no urinary symptoms On 03/08/2021 patient is alert and oriented 3. Patient remains on 10 L high flow nasal cannula. Patient remains with cough and shortness breath. Patient denies nausea vomiting or diarrhea. Patient denies any urinary burning or frequency On 03/09/2021 patient was seen and examined on the medical floor she is alert and oriented 3 in no apparent distress, she is maintained on oxygen at 10 L via nasal cannula, she is still complaining of shortness of breath and occasional cough otherwise she denies any complaints she is tolerating diet 12 vital examination reveals a temperature of 97.8 pulse 59 respiration 18 blood pressure 99/54 pulse ox 92% on 10 L high flow cannula white blood count 4.0 hemoglobin 12.1 platelet count 326 sodium 136 potassium 4.2 chloride 103 CO2 26 BUN 22 creatinine 0.46 liver function is normal, patient is maintained on Symbicort inhaler albuterol inhaler subcu Lovenox IV Solu-Medrol and IV Zosyn On 03/10/2021 patient was seen and examined on the medical floor she is alert and oriented in no distress she is still requiring oxygen 10 L via high flow cannula she is still complaining of shortness of breath with any activity and occasional cough she is complaining of generalized weakness otherwise she denies any complaints there is no fever or chills no headache or dizziness no chest pain no nausea or vomiting no abdominal pain no diarrhea no blood in the stools no burning with urination no frequency or urgency and no hematuria she is still maintained on IV antibiotic IV steroids and subcu Lovenox patient is improving gradually. On 03/11/2021 patient was seen and examined on the medical floor she is alert and oriented 3 in no apparent distress she feels better she has less cough and shortness of breath currently she is maintained on oxygen 10 L via high flow nasal cannula there is no fever or chills no headache or dizziness no chest pain no shortness of breath at rest she has shortness of breath with any activity there is no nausea or vomiting no abdominal pain no diarrhea and no urinary symptoms On 03/12/2021 patient was seen and examined on the medical floor she is alert and oriented , she is still requiring oxygen 10 L via high flow cannula she is still complaining of shortness of breath with any activity and cough she is complaining of generalized weakness otherwise she denies any complaints there is no fever or chills no headache or dizziness no chest pain no nausea or vomiting no abdominal pain no diarrhea no blood in the stools no burning with urination no frequency or urgency and no hematuria she is still maintained on IV antibiotic IV steroids and subcu Lovenox patient is improving gradually. On 03/13/2021 patient was seen and examined in the ICU is alert responsive in no apparent distress she is maintained on BiPAP, earlier this morning patient had a chest x-ray that revealed a large left sided pneumothorax patient was transferred to ICU she underwent left sided chest tube placement. Currently patient is awake she is following command she is maintained on BiPAP blood pressure is 140/55 heart rate 71 respiration 18 temperature 97.4 arterial blood gas reveals a pH of 7.37 pCO2 55 PO2 113 White blood count 6.2 hemoglobin 8.5 platelet count 365 On 03/14/2021 patient was seen and examined in the ICU is alert responsive in no apparent distress she is maintained on BiPAP, Currently patient is awake she is following command she is maintained on BiPAP blood pressure is 132/60 heart rate 76 respiration 18 temperature 97.6 arterial blood gas reveals a pH of 7.37 pCO2 55 PO2 113 White blood count 9.9 hemoglobin 9.3 platelet count 335 On 03/15/2021 patient was seen in the ICU she is alert and responsive, she is complaining of worsening shortness of breath she is maintained on BiPAP chest x- ray this morning revealed evidence of worsening left sided pneumothorax, patient was seen by pulmonary Dr. Esquivel, who discussed the case in details with her family, most likely family will decide on starting comfort care measures only later on today. Objective - Vital Signs Vital signs: Vital Signs Temp 96.6 F L 03/15/21 08:00 Pulse 98 03/15/21 10:00 Resp 26 H 03/15/21 10:00 BP 87/60 03/15/21 10:00 Pulse Ox 100 03/15/21 10:00 Intake & Output 03/14/21 03/15/21 03/15/21 18:59 06:59 18:59 Intake Total 1239 3466 543.656 Output Total 540 325 210 Balance 699 3141 333.656 Weight 43.7 kg 46.6 kg 46.6 kg Intake: IV 1239 3466 539.1 .9 1200 3000 Amiodarone 360 mg In 330 Dextrose 5% in Water 200 ml @ 1 MG/MIN 33.333 mls/ hr IV .Q6H [facility] Rx#: [id number] Amiodarone 450 mg In 50.1 Dextrose 5% in Water 250 ml @ 0.5 MG/MIN 16.667 mls/hr IV .Q15H [facility] Rx#: [id number] Dextrose 5% in Water 100 100 ml @ 618 mls/hr IV .Q10M ONE with Amiodarone 150 mg Rx#:[id number] Fat Emulsion 20% 250 ml 42 In Empty Bag 1 bag @ 21 mls/hr IV MoWeFr [facility] Rx#: [id number] Mvi, Adult No.4 with Vit 135 K 10 ml Trace (Conc-1Ml/ Dose) 1 ml Potassium Acetate 14 meq Magnesium Sulfate gm 1 gm In Amino Acid 4.25%-D10w 1,000 ml @ 45 mls/hr IV .[id number] [facility] Rx#:[id number] Pressure bag 39 36 12 Sodium Chloride 0.9% 1, 300 000 ml @ 100 mls/hr IV . Q10H [facility] Rx#:[id number] Intake, IV Titration 4.556 Amount Morphine Sulfate (100 mg/ 4.556 2 ml) 100 mg In Sodium Chloride 0.9% 100 ml @ 1 MG/HR 1.02 mls/hr IV . Q24H [facility] Rx#:[id number] Output: Chest Tube Drainage 65 5 Thora-Vent Left Upper Mid 65 5 -Clavicular Chest Urine 475 320 210 Other: Voiding Method Indwelling Catheter Indwelling Catheter Indwelling Catheter # Voids 1 ABP, PAP, CO, CI - Last Documented Arterial Blood Pressure 97/54 - Exam In general patient is alert and oriented 3 in no apparent distress Head normocephalic and atraumatic Neck supple no JVD no goiter no lymphadenopathy Lungs diminished bilaterally Heart regular rate and rhythm S1-S2, no rub or gallop Abdomen is soft nontender nondistended positive bowel sounds no hepatosplenomegaly Extremities no edema no cyanosis or clubbing Neuro no gross focal deficit Tremor noted known Parkinson's disease - Labs CBC & Chem 7: 03/15/21 05:00 03/15/21 05:00 Labs: Abnormal Lab Results - Last 24 Hours (Table) 03/13/21 03/14/21 03/15/21 Range/Units 09:08 17:58 01:32 WBC (3.8-10.6) k/uL RBC (3.80-5.40) m/uL Hgb (11.4-16.0) gm/dL Hct (34.0-46.0) % MCHC (31.0-37.0) g/dL RDW (11.5-15.5) % Neutrophils # (1.3-7.7) k/uL Lymphocytes # (1.0-4.8) k/uL Sodium (137-145) mmol/L Chloride (98-107) mmol/L BUN (7-17) mg/dL Glucose (74-99) mg/dL POC Glucose (mg/dL) 151 H 289 H (75-99) mg/dL Calcium (8.4-10.2) mg/dL Ionized Calcium Augie (4.5-5.3) mg/dL Phosphorus (2.5-4.5) mg/dL AST (14-36) U/L Total Protein (6.3-8.2) g/dL Albumin (3.5-5.0) g/dL Crossmatch See Detail 03/15/21 03/15/21 03/15/21 Range/Units 05:00 05:00 05:00 WBC 21.0 H (3.8-10.6) k/uL RBC 3.12 L (3.80-5.40) m/uL Hgb 8.8 L (11.4-16.0) gm/dL Hct 30.9 L (34.0-46.0) % MCHC 28.4 L (31.0-37.0) g/dL RDW 17.0 H (11.5-15.5) % Neutrophils # 19.9 H (1.3-7.7) k/uL Lymphocytes # 0.4 L (1.0-4.8) k/uL Sodium 147 H (137-145) mmol/L Chloride 115 H (98-107) mmol/L BUN 33 H (7-17) mg/dL Glucose 254 H (74-99) mg/dL POC Glucose (mg/dL) (75-99) mg/dL Calcium 8.2 L (8.4-10.2) mg/dL Ionized Calcium Augie 5.7 H (4.5-5.3) mg/dL Phosphorus 6.2 H (2.5-4.5) mg/dL AST 122 H (14-36) U/L Total Protein 4.3 L (6.3-8.2) g/dL Albumin 2.2 L (3.5-5.0) g/dL Crossmatch 03/15/21 Range/Units 05:07 WBC (3.8-10.6) k/uL RBC (3.80-5.40) m/uL Hgb (11.4-16.0) gm/dL Hct (34.0-46.0) % MCHC (31.0-37.0) g/dL RDW (11.5-15.5) % Neutrophils # (1.3-7.7) k/uL Lymphocytes # (1.0-4.8) k/uL Sodium (137-145) mmol/L Chloride (98-107) mmol/L BUN (7-17) mg/dL Glucose (74-99) mg/dL POC Glucose (mg/dL) 270 H (75-99) mg/dL Calcium (8.4-10.2) mg/dL Ionized Calcium Augie (4.5-5.3) mg/dL Phosphorus (2.5-4.5) mg/dL AST (14-36) U/L Total Protein (6.3-8.2) g/dL Albumin (3.5-5.0) g/dL Crossmatch Assessment and Plan Assessment: 1. Acute on chronic hypoxic respiratory failure secondary to acute COVID-19 related pneumonia. Currently on IV Solu-Medrol and Zosyn 2. Acute exacerbation of COPD 3. Parkinson's disease. Patient maintained on levodopa 4. Chronic hypoxic respiratory failure. Maintain on home oxygen 2 L 5. Multiple falls and generalized weakness. And right-sided rib fracture Pa tient was evaluated by neurology services due to known history of Parkinson's disease no changes to medication 6. Ongoing nicotine dependence despite extensive education on the importance of smoking sensation 7. History of CVA 8. Essential hypertension 9. History of hypothyroidism 10. History of diverticular disease 11. History of depression 12. Hypokalemia this and replace per protocol 13. Left sided pneumothorax status post left chest tube placement and transfer to ICU currently patient is maintained on BiPAP 14. Bilateral knee pain. Patient was evaluated by orthopedic services. It is reported this is a chronic issue. Recommending physical therapy with no plans for surgical intervention DVT prophylaxis Lovenox. GI prophylaxis Protonix Sputum cultures pending. Pulmonary service is following. Patient is improving gradually Maintained on IV Solu-Medrol and IV Zosyn Maintained on vitamin C vitamin D and zinc Pulmonary critical care. Discussed with Family in regard to comfort care measures only Family will deliberate, and most likely will start comfort care only later on tonight
[2021-03-19 22:37] LABS: LD Isoenzymes 1 32 % (19-38); LD Isoenzymes 2 38 % (30-43); LD Isoenzymes 3 16 % (16-26); LD Isoenzymes 4 6 % (3-12); LD Isoenzymes 5 8 % (3-14); Lactacte Dehydrogenase(LD) ISO 182 U/L (120-250)
--- NOTE | 2021-03-20 13:25 | P.DS ---
Providers Date of admission: 02/28/21 22:23 Expected date of discharge: 03/15/21 Attending physician: Kyleigh Garcia Consults: 03/01/21 10:17 Consult Physician Urgent Consulting Provider: Errol Ruiz Consult Reason/Comments: pna Do you want consulting provider notified?: Yes 03/01/21 12:16 Consult Physician Urgent Consulting Provider: Arlen Jose Consult Reason/Comments: multiple falls and weakness Do you want consulting provider notified?: Yes 03/02/21 08:10 Consult Physician Urgent Consulting Provider: Gildardo Alexander Consult Reason/Comments: B/L large knee effusion Do you want consulting provider notified?: Yes 03/13/21 08:19 Consult Physician Routine Consulting Provider: Zarina Burris Consult Reason/Comments: COVID 19, LARGE LEFT PNEUMOTHORAX Do you want consulting provider notified?: Already Contacted 03/14/21 22:01 Consult Physician Routine Consulting Provider: Kevyn Leal Consult Reason/Comments: SVT Do you want consulting provider notified?: Yes, Notify in am Primary care physician: Kyleigh Beanjar [facility] Course: Discharge diagnosis 1. Acute on chronic hypoxic respiratory failure secondary to acute COVID-19 related pneumonia. Currently on IV Solu-Medrol and Zosyn 2. Acute exacerbation of COPD 3. Parkinson's disease. Patient maintained on levodopa 4. Chronic hypoxic respiratory failure. Maintain on home oxygen 2 L 5. Multiple falls and generalized weakness. And right-sided rib fracture Patient was evaluated by neurology services due to known history of Parkinson's disease no changes to medication 6. Ongoing nicotine dependence despite extensive education on the importance of smoking sensation 7. History of CVA 8. Essential hypertension 9. History of hypothyroidism 10. History of diverticular disease 11. History of depression 12. Hypokalemia this and replace per protocol 13. Left sided pneumothorax status post left chest tube placement and transfer to ICU currently patient is maintained on BiPAP 14. Bilateral knee pain. Patient was evaluated by orthopedic services. It is reported this is a chronic issue. Recommending physical therapy with no plans for surgical intervention Hospital course I am assuming care of this patient as of 03/06/2021 at 8 AM. I was out of town and Dr. Aguilera was covering for me. HMP done by Dr. Camejo on 03/01/2021 Elicia Bradshaw, is an 80-year-old female admitted to [facility] through emergency room after presenting with symptoms of COVID- 19 pneumonia. Patient was having frequent falls at home along with chest pain and coughing for 3 days prior to hospitalization patient has a past medical history of COPD, CVA, hypertension, hypothyroidism, depression, diverticulitis, Parkinson's disease, COPD maintained on home O2 and nicotine dependence. Patient was positive COVID-19 chest x-ray performed in ER showing right upper lobe and right lower lobe pneumonia right-sided rib fracture. Patient was admitted to observation unit. Pulmonary and neurology services were consulted. On 03/06/2021 patient remains in the observation unit. Patient's alert and oriented 3 area patient remains on IV Solu-Medrol, IV Zosyn, vitamin C, zinc, vitamin D. She remains on high flow oxygen at 15 L. Pulmonary services are following. Patient was evaluated by neurology services due to increased falls and Parkinson's disease. No changes to Parkinson's medication. At this time patient denies chest pain. Patient denies nausea vomiting or diarrhea. Patient denies any urinary burning or frequency area potassium 3.3 replace per protocol. Morphine added for increase pain. On 03/07/2021 patient was seen and examined on the medical floor she is alert and oriented 3 in no apparent distress she feels better he has less cough and shortness of breath currently she is maintained on oxygen 10 L via high flow nasal cannula there is no fever or chills no headache or dizziness no chest pain no shortness of breath at rest she has shortness of breath with any activity there is no nausea or vomiting no abdominal pain no diarrhea and no urinary symptoms On 03/08/2021 patient is alert and oriented 3. Patient remains on 10 L high flow nasal cannula. Patient remains with cough and shortness breath. Patient denies nausea vomiting or diarrhea. Patient denies any urinary burning or fr equency On 03/09/2021 patient was seen and examined on the medical floor she is alert and oriented 3 in no apparent distress, she is maintained on oxygen at 10 L via nasal cannula, she is still complaining of shortness of breath and occasional cough otherwise she denies any complaints she is tolerating diet 12 vital examination reveals a temperature of 97.8 pulse 59 respiration 18 blood pressure 99/54 pulse ox 92% on 10 L high flow cannula white blood count 4.0 hemoglobin 12.1 platelet count 326 sodium 136 potassium 4.2 chloride 103 CO2 26 BUN 22 creatinine 0.46 liver function is normal, patient is maintained on Symbicort inhaler albuterol inhaler subcu Lovenox IV Solu-Medrol and IV Zosyn On 03/10/2021 patient was seen and examined on the medical floor she is alert and oriented in no distress she is still requiring oxygen 10 L via high flow cannula she is still complaining of shortness of breath with any activity and occasional cough she is complaining of generalized weakness otherwise she denies any complaints there is no fever or chills no headache or dizziness no chest pain no nausea or vomiting no abdominal pain no diarrhea no blood in the stools no burning with urination no frequency or urgency and no hematuria she is still maintained on IV antibiotic IV steroids and subcu Lovenox patient is improving gradually. On 03/11/2021 patient was seen and examined on the medical floor she is alert and oriented 3 in no apparent distress she feels better she has less cough and shortness of breath currently she is maintained on oxygen 10 L via high flow nasal cannula there is no fever or chills no headache or dizziness no chest pain no shortness of breath at rest she has shortness of breath with any activity there is no nausea or vomiting no abdominal pain no diarrhea and no urinary symptoms On 03/12/2021 patient was seen and examined on the medical floor she is alert and oriented , she is still requiring oxygen 10 L via high flow cannula she is still complaining of shortness of breath with any activity and cough she is complaining of generalized weakness otherwise she denies any complaints there is no fever or chills no headache or dizziness no chest pain no nausea or vomiting no abdominal pain no diarrhea no blood in the stools no burning with urination no frequency or urgency and no hematuria she is still maintained on IV antibiotic IV steroids and subcu Lovenox patient is improving gradually. On 03/13/2021 patient was seen and examined in the ICU is alert responsive in no apparent distress she is maintained on BiPAP, earlier this morning patient had a chest x-ray that revealed a large left sided pneumothorax patient was transferred to ICU she underwent left sided chest tube placement. Currently patient is awake she is following command she is maintained on BiPAP blood pressure is 140/55 heart rate 71 respiration 18 temperature 97.4 arterial blood gas reveals a pH of 7.37 pCO2 55 PO2 113 White blood count 6.2 hemoglobin 8.5 platelet count 365 On 03/14/2021 patient was seen and examined in the ICU is alert responsive in no apparent distress she is maintained on BiPAP, Currently patient is awake she is following command she is maintained on BiPAP blood pressure is 132/60 heart rate 76 respiration 18 temperature 97.6 arterial blood gas reveals a pH of 7.37 pCO2 55 PO2 113 White blood count 9.9 hemoglobin 9.3 platelet count 335 On 03/15/2021 patient was seen in the ICU she is alert and responsive, she is complaining of worsening shortness of breath she is maintained on BiPAP chest x- ray this morning revealed evidence of worsening left sided pneumothorax, patient was seen by pulmonary Dr. Esquivel, who discussed the case in details with her family, most likely family will decide on starting comfort care measures only later on today. Patient was made comfort care patient on 03/15/2021 at 1255 Plan - Discharge Summary Discharge Rx Participant: No New Discharge Prescriptions: No Action HYDROcodone/APAP 10-325MG [[place] 10-325] 1 tab PO QID PRN PRN Reason: Pain Clopidogrel Bisulfate [Plavix] 75 mg PO DAILY hydroCHLOROthiazide 25 mg PO DAILY Primidone [Mysoline] 50 mg PO TID Baclofen [Lioresal] 10 mg PO TID Furosemide [Lasix] 40 mg PO DAILY PRN PRN Reason: Edema Carbidopa-Levodopa 25-100 mg [Sinemet 25-100] 1 tab PO TID Ipratropium-Albuterol Nebulize [Duoneb 0.5 mg-3 mg/3 ml Soln] 3 ml INHALATION RT-QID PRN PRN Reason: Shortness Of Breath Potassium Chloride ER [K-Dur 10] 10 meq PO DAILY Metoprolol Tartrate [Lopressor] 12.5 mg PO BID Levothyroxine Sodium [Synthroid] 50 mcg PO DAILY Fluticasone/Vilanterol [Breo Ellipta 200-25 Mcg INH] 1 puff INHALATION RT- DAILY Aspirin EC [Ecotrin Low Dose] 81 mg PO DAILY Discharge Medication List Clopidogrel Bisulfate [Plavix] 75 mg PO DAILY 01/29/15 [History] HYDROcodone/APAP 10-325MG [[place] 10-325] 1 tab PO QID PRN 01/29/15 [History] hydroCHLOROthiazide 25 mg PO DAILY 08/10/18 [History] Primidone [Mysoline] 50 mg PO TID 01/26/19 [History] Baclofen [Lioresal] 10 mg PO TID 07/29/19 [History] Aspirin EC [Ecotrin Low Dose] 81 mg PO DAILY 02/28/21 [History] Carbidopa-Levodopa 25-100 mg [Sinemet 25-100] 1 tab PO TID 02/28/21 [History] Fluticasone/Vilanterol [Breo Ellipta 200-25 Mcg INH] 1 puff INHALATION RT-DAILY 02/28/21 [History] Furosemide [Lasix] 40 mg PO DAILY PRN 02/28/21 [History] Ipratropium-Albuterol Nebulize [Duoneb 0.5 mg-3 mg/3 ml Soln] 3 ml INHALATION RT-QID PRN 02/28/21 [History] Levothyroxine Sodium [Synthroid] 50 mcg PO DAILY 02/28/21 [History] Metoprolol Tartrate [Lopressor] 12.5 mg PO BID 02/28/21 [History] Potassium Chloride ER [K-Dur 10] 10 meq PO DAILY 02/28/21 [History] Follow up Appointment(s)/Referral(s): [facility], [NON-STAFF] - As Needed Kyleigh Garcia MD [Primary Care Provider] - 1-2 days Discharge Disposition: - Preliminary Cause of Preliminary Cause of : Left-sided hemopneumothorax respiratory failure secondary to COVID-19 pneum
== END 2021-03-15 15:14 | disposition expired | DRG 177 ==
LOC: EC 19:41 → 4SSUR 22:23 → 1SOBS 03-01 13:24 → 4SSUR 03-11 13:33 → 2SICU 03-13 08:29
PROVIDERS: ADMIT Internal Medicine; ATTEND Internal Medicine
PROC: 5A0955A Assistance with Respiratory Ventilation, Greater than 96 Consecutive Hours, High Flow/Velocity Cannula (ICD-10-PCS; 2021-03-03)
PROC: 5A09457 Assistance with Respiratory Ventilation, 24-96 Consecutive Hours, Continuous Positive Airway Pressure (ICD-10-PCS; 2021-03-12)
PROC: 0W9930Z Drainage of Right Pleural Cavity with Drainage Device, Percutaneous Approach (ICD-10-PCS; principal; 2021-03-13)
PROC: 4A133J1 Monitoring of Arterial Pulse, Peripheral, Percutaneous Approach (ICD-10-PCS; principal; 2021-03-13)
PROC: 03HY32Z Insertion of Monitoring Device into Upper Artery, Percutaneous Approach (ICD-10-PCS; principal; 2021-03-13)
PROC: 4A133B1 Monitoring of Arterial Pressure, Peripheral, Percutaneous Approach (ICD-10-PCS; principal; 2021-03-13)
PROC: 06HM33Z Insertion of Infusion Device into Right Femoral Vein, Percutaneous Approach (ICD-10-PCS; principal; 2021-03-13)
PROC: 30243N1 Transfusion of Nonautologous Red Blood Cells into Central Vein, Percutaneous Approach (ICD-10-PCS; 2021-03-13)
DX: U07.1 COVID-19 (principal); G92 Toxic encephalopathy; J12.82 Pneumonia due to coronavirus disease 2019; J96.21 Acute and chronic respiratory failure with hypoxia; J15.9 Unspecified bacterial pneumonia; J94.2 Hemothorax; E44.1 Mild protein-calorie malnutrition; R64 Cachexia; B37.0 Candidal stomatitis; I69.354 Hemiplegia and hemiparesis following cerebral infarction affecting left non-dominant side; J93.82 Other air leak; D62 Acute posthemorrhagic anemia; E87.1 Hypo-osmolality and hyponatremia; I47.1 Supraventricular tachycardia; J90 Pleural effusion, not elsewhere classified; J44.0 Chronic obstructive pulmonary disease with (acute) lower respiratory infection; S22.31XA Fracture of one rib, right side, initial encounter for closed fracture; J44.1 Chronic obstructive pulmonary disease with (acute) exacerbation; Z68.1 Body mass index [BMI] 19.9 or less, adult; J98.11 Atelectasis; G20 Parkinson's disease; M06.9 Rheumatoid arthritis, unspecified; I48.0 Paroxysmal atrial fibrillation; Z66 Do not resuscitate; Z51.5 Encounter for palliative care; I95.9 Hypotension, unspecified; I73.9 Peripheral vascular disease, unspecified; E78.5 Hyperlipidemia, unspecified; R54 Age-related physical debility; D72.810 Lymphocytopenia; E87.6 Hypokalemia; G89.29 Other chronic pain; M21.371 Foot drop, right foot; G62.9 Polyneuropathy, unspecified; E03.9 Hypothyroidism, unspecified; I10 Essential (primary) hypertension; K57.90 Diverticulosis of intestine, part unspecified, without perforation or abscess without bleeding; R29.6 Repeated falls; M25.551 Pain in right hip; M25.552 Pain in left hip; M25.561 Pain in right knee; M25.562 Pain in left knee; M25.461 Effusion, right knee; M25.462 Effusion, left knee; N28.9 Disorder of kidney and ureter, unspecified; M51.36 Other intervertebral disc degeneration, lumbar region; M19.90 Unspecified osteoarthritis, unspecified site; M48.061 Spinal stenosis, lumbar region without neurogenic claudication; M95.4 Acquired deformity of chest and rib; F17.210 Nicotine dependence, cigarettes, uncomplicated; Z71.6 Tobacco abuse counseling; Z99.81 Dependence on supplemental oxygen; Z79.82 Long term (current) use of aspirin; Z79.02 Long term (current) use of antithrombotics/antiplatelets; Z79.51 Long term (current) use of inhaled steroids; Z79.899 Other long term (current) drug therapy; Z90.49 Acquired absence of other specified parts of digestive tract; Z87.19 Personal history of other diseases of the digestive system; Z87.09 Personal history of other diseases of the respiratory system; Z86.69 Personal history of other diseases of the nervous system and sense organs; Z86.59 Personal history of other mental and behavioral disorders; Z79.890 Hormone replacement therapy; Z90.89 Acquired absence of other organs; Z98.51 Tubal ligation status; Z71.3 Dietary counseling and surveillance; Z98.890 Other specified postprocedural states; Z88.2 Allergy status to sulfonamides; Y93.01 Activity, walking, marching and hiking; W22.01XA Walked into wall, initial encounter; Y92.009 Unspecified place in unspecified non-institutional (private) residence as the place of occurrence of the external cause; Z88.8 Allergy status to other drugs, medicaments and biological substances; Z82.49 Family history of ischemic heart disease and other diseases of the circulatory system
CPT/HCPCS: 36415; 70450; 71045; 71046; 73521; 80048; 80053; 82330; 82607; 82728; 82746; 82805; 83036; 83615; 83625; 83735; 84100; 84145; 84478; 85025; 85379; 85384; 85610; 86140; 86850; 86900; 86901; 86920; 87070; 87205; 87635; 93005; 93306; 94640; 94660; 94664; 94760; 99285